=== PATIENT | female | born 1960 | race Caucasian/White ===

== ENCOUNTER → 2018-09-01 09:33 | Outpatient (CLI) | payer MEDICAID, SELFPAY ==
--- NOTE | 2018-09-01 | ASPOS_PTH ---
PATIENT: TRENA DENISE LOC: CT U#:[id number] AGE/SX: 65/F ROOM: RE09/01/[address]: Dr. Rafal Leija MD : 1960 BED: DIS: SPEC #: [id number] RECD: 09/01/18 12:25 STATUS: RUT ARETHA #: [id number] YANETH: 09/01/18 00:[address]: Rafal Leija DEPT: CYTOLOGY RECD BY: Yohan Kenny ENTERED: 09/01/18 12:25 SP TYPE: ASP HERE OTHR DR: No Primary Care Phys Tissues: Neck, NOS Procedures: Surgery Specimen Level IV Cytology Other Fine Needle Asp on Site HEADER OPERATION: FNA right neck mass PRE-OP DIAGNOSIS: Right neck mass TISSUE SUBMITTED: FNA right neck mass DIAGNOSIS CYTOLOGY Right neck mass, FNA (smears and cell block): Necrotic cellular material, suspicious for malignancy. See comment. SJ:kay 09/04/18 COMMENT The specimen is evaluated at the time of FNA by Dr. Trotter. Immediate Evaluation = Atypical necrotic cellular debris suspicious for malignancy. The entire specimen consists of necrotic material. Further evaluation is not possible due to necrosis. Incisional or excisional biopsy of the lesion is necessary for definite classification of the lesion. Correlation with clinical findings and appropriate follow up are necessary. Case has been reviewed in consultation with Dr. Trotter who concurs with the above diagnosis. IDC:AM CYTOLOGY STUDY Slides are reviewed. CYTOLOGY GROSS Received is 0.2 ml of webb material labeled with the patient's name, and designated right neck mass. Five imprints and two paps are made from the submitted fluid and the rest is added to CytoLyt for cell block preparation. Submitted for cytology study. / AM:kay 09/01/18 TC: Cannot code CPT: 71904, 88736, 88535, 55131
--- NOTE | 2018-09-01 10:38 | CT_ITS ---
We are attempting to reach Rafal Leija MD to discuss findings. An addendum with communication details will be sent when the communication is complete. STUDY: CT SOFT TISSUE NECK WITH CONTRAST REASON FOR EXAM: Female, 58 years old. ]Right neck mass RADIATION DOSAGE (If Supplied By Facility): CTDIvol = ( 23.25 ) mGy, DLP = ( 609.48 ) mGycm TECHNIQUE: The patient was scanned in a multi-detector CT scanner. High resolution transaxial imaging was performed following intravenous administration of Isovue 300 100cc IV. Sagittal and coronal images were reconstructed. Individualized dose optimization techniques were used for this CT. COMPARISON: None. FINDINGS: SUPRAHYOID HEAD AND NECK CLIENT SERVICE PROFESSIONAL SPACE (INCLUDING SUPRAZYGOMATIC PORTION): Normal with no evidence of an accessory parotid lobe. No calcification in parotid duct. PARAPHARYNGEAL SPACE: Normal and symmetric. No evidence of asymmetric pterygoid plexus. RETROPHARYNGEAL SPACE: A large 1.8 cm right necrotic node of Rouviere is seen CAROTID SPACE: Displaced medially by an enlarged necrotic lymph nodes matted together at levels 2A and 2B on the right side of the neck PERIVERTEBRAL SPACE: The prevertebral and paraspinal components are normal. PAROTID SPACE: Negative PHARYNGEAL MUCOSAL SPACE: The nasopharyngeal and oropharyngeal spaces including the tongue base are normal with no tonsillitis, adenoidal hypertrophy or any neoplastic processes. No evidence to suggest the presence of squamous cell carcinoma within the pharyngeal mucosal spaces i in the nasopharynx, oropharynx or hypopharynx ORAL CAVITY : The mucosal surfaces including the anterior two thirds of the tongue and the submandibular and sublingual spaces are normal INFRAHYOID HEAD AND NECK: VISCERAL SPACE: A 1.6 cm area of low attenuation is identified within the left lobe of the thyroid gland with multiple areas of calcifications within it. Papillary carcinoma is suspected because of the cystic lymphadenopathy on the right side of the neck THE CAROTID, RETROPHARYNGEAL, PERIVERTEBRAL and POSTERIOR CERVICAL SPACES (Containing The Spinal Accessory Lymph Nodes): Normal . ORBITS AND PARANASAL SINUSES: Negative CERVICAL LYMPH NODES: A 5.6 x 2.2 cm mass is noted at the levels 2A, 2-B and 3 the right side.. They are consistent with necrotic lymph nodes matted together. The mass has displaced the right carotid space medially and the sternocleidomastoid muscle laterally. A 1.8 cm necrotic lymph node is also seen in the right retropharyngeal group (node of Rouviere). A 1.9 x 1.3 cm nonnecrotic lymph node is at level 2A on the left side and a 1.3 cm nonnecrotic lymph node is at level IIb also on the left side . CT/Soft Tissue Neck WITH Contrast IMPRESSION: Large necrotic nodes matted together at level 2A, 2-B and 3 on the right side and level 2A and 2B on the left side. A necrotic right-sided node review is also noted. There is no demonstrable neoplastic process within the pharyngeal mucosal spaces of the nasopharynx, oropharynx or hypopharynx. There is however a 1.6 cm area of low attenuation in the left lobe of the thyroid gland with specks of calcifications within it. Papillary carcinoma is suspected because of the necrotic nature of the abnormal lymph nodes. Ultrasound-guided biopsy of the thyroid lesion is suggested Electronically Signed: Jason Estevez MD at 8:02 EDT Tel , Service support ,
[2018-09-01 11:01] LABS: CREATININE FINGERSTICK 0.8 mg/dL (0.55-1.02); EGFR FINGERSTICK > 60.0000 mL/min (>60)
== END ==
PROVIDERS: Referring Provider Otolaryngology; Visit Provider Otolaryngology
DX: R22.1 Localized swelling, mass and lump, neck (principal)
CPT/HCPCS: 10021; 70491; 88161; 88305; Q9967

== ENCOUNTER 2018-09-08 00:24 | Emergency (ER) | payer MEDICAID, SELFPAY ==
[2018-09-08 00:25] VITALS: BP 149/88; PULSE 94; RESP 16; TEMP 36.8; O2SAT 99; BMI 16.9
--- NOTE | 2018-09-08 01:52 | ED.VISSUMM ---
- ER Visit Summary Date of Service: 09/08/18 Chief Complaint: Right ear pain History of Present Illness: The patient is a 58 F who presents with right ear pain. This is been present for last few days. She describes it as a severe pressure. She is undergoing evaluation by otolaryngology for a right neck mass. She had a CT which showed necrotic lymph nodes. She also had a questionable thyroid malignancy. She also recently had a fine-needle aspiration. Biopsy was inconclusive as it essentially just showed necrotic tissue. She then saw otolaryngology in the office and was diagnosed with otitis media and put on Augmentin. She developed a rash. Therefore she stopped the antibiotic. She came in tonight due to severe pain. No fevers. No vomiting. She also states that there was a red line from her biopsy site up towards her right ear although that has since resolved. Physical Examination: Afebrile vitals normal Patient does appear to be in pain The right tympanic membrane is erythematous with a cloudy effusion but I am able to visualize landmarks Site of fine-needle aspiration is clean and dry no drainage no erythema no lymphangitic streaking Heart regular rate and rhythm Lungs clear Abdomen soft Alert Test Results: Not indicated Emergency Department Course and Treatment: The red streak that family had noted before when they removed the Band-Aid is now gone. This could even potentially be a reaction to the adhesive from the Band-Aid. There is no evidence of infection there at this time. She does have evidence of otitis media. I spoke to Dr. Mondragon was able to provide more information. She likely has a malignancy in the neck with occlusion of the eustachian tube. He notes that this is likely to lead to otitis media. We discussed changing the patient to Levaquin which she is in agreement with. Patient was also given oxycodone here for pain as well as a prescription for Percocet as she has tolerated this in the past. She will follow-up with otolaryngology in the office and was discharged home. Treatment Plan: [] Disposition: Discharge Impression: Acute right otitis media Neck malignancy This note was generated with VividCortexation software. It may contain incorrect words, spelling, and punctuation that were not noted in review of the chart prior to signing ED Disposition - Plan for ED Patient: Referrals: Care Physician,No Primary [Primary Care Provider] -
--- NOTE | 2018-09-08 01:54 | ED.DEP ---
ED Disposition - Plan for ED Patient: Instructions: ED Otitis Media Acute Adult Prescriptions: Oxycodone HCl/Acetaminophen [Percocet 5/325] 1 tab PO Q6H PRN PRN 3 Days #12 tab PRN Reason: Pain Levofloxacin [Levaquin] 750 mg PO DAILY #6 tab Referrals: Care Physician,No Primary [Primary Care Provider] - Demarco Leija MD [STAFF PHYSICIAN] -
[2018-09-08] MEDS: oxyCODONE 5 MG Tablet PO (01:56)
[2018-09-08] MEDS: levoFLOXacin 750 MG Tablet PO (01:56)
[2018-09-08 01:57] VITALS: RESP 18; O2SAT 97
== END 2018-09-08 01:59 | disposition home or self-care (01) ==
PROVIDERS: Emergency Provider Emergency Medicine
DX: H66.91 Otitis media, unspecified, right ear (principal); C76.0 Malignant neoplasm of head, face and neck; E11.9 Type 2 diabetes mellitus without complications; Z79.4 Long term (current) use of insulin; Z72.0 Tobacco use
CPT/HCPCS: 99283

== ENCOUNTER → 2018-10-02 09:35 | Outpatient (CLI) | payer MEDICAID, SELFPAY ==
[2018-09-08 00:25] VITALS: BMI 16.9
--- NOTE | 2018-10-02 09:30 | PET_ITS ---
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 COMPARISON EXAMINATION: CT of the neck report dated 09/01/18. INDEX LESION SIZE SUV INTERPRETATION Nasopharynx-heterogeneous 37.4 mm (frame 301) 23.5 Fulfills quantitative criteria for viable neoplasm Bilateral-lateral neck 33.2 mm x 38.0 mm largest (frame 287) 21.5 (max) Fulfills quantitative criteria for viable neoplasm TECHNIQUE: Following the intravenous administration of 13.83 mCi of F-18 deoxyglucose via the right hand, multiplanar image acquisitions of the neck, chest, abdomen and pelvis to level of mid thigh, obtained at one hour post radiopharmaceutical administration contemporaneously interpreted with the current CT of the neck, chest, abdomen and pelvis to level of mid thigh, dated 10/02/[address] of the neck report dated 09/01/18 reveal: SERUM GLUCOSE LEVEL: 110 mg/dl. HEIGHT: 67 inches. WEIGHT: 170 lbs. FINDINGS: 1. Increased glucose metabolism is defined in the right and midline nasopharynx, heterogeneous in presentation generating a calculated maximum standard uptake value of 23.5. The maximal axial diameter of the metabolic abnormality on review of CT of the neck dated 02/01/19 is 37.4 mm (transverse). 2. Multifocal increased FDG concentration is demonstrated in the bilateral-lateral neck in the distributions of level II A, III. The calculated maximum standard uptake value is 21.5. The largest corresponding metabolic, morphologic abnormality on review of CT of the neck dated 10/02/18 is 33.2 mm (transverse) x 38.0 mm (AP). 3. Normal physiologic distribution of the radiopharmaceutical is apparent in the hepatic (0.8) and splenic parenchyma, both renal units, bladder and visualized intestinal tract. There is uniform distribution of the radiopharmaceutical concentration defined in the visualized cerebellar hemispheres and cerebral cortical structures.? Diffuse intestinal tract activity is noted throughout all four quadrants of the abdominal-pelvic retroperitoneum, mesentery consistent with normal physiologic distribution of the radiopharmaceutical. Prominent left ventricular myocardial and skeletal muscle distribution of the radiopharmaceutical is noted. Pertinent CT findings are as follows. CHEST: Atherosclerotic calcification is defined in the thoracic aorta without evidence of dilatation, aneurysm formation. Subcentimeter bilateral axillary and mediastinal soft tissue densities are non-glucose avid. There are no parenchymal densities-nodules defined in the right-left hemithorax demonstrating discernible increased glucose metabolism. ABDOMEN AND PELVIS: There is fatty metamorphosis involving the hepatic parenchyma. Cholelithiasis is defined. Atherosclerotic calcification is defined in the abdominal aorta without evidence of dilatation, aneurysm formation. Bilateral inguinal soft tissue densities are ametabolic. Colonic diverticulosis is defined. Calcified granuloma formation is noted within the splenic parenchyma. Cortical cyst formation is observed in the left kidney with a maximal axial diameter of 30.7 mm (transverse). SKELETAL: Degenerative changes defined in the cervical, thoracic and lumbar spine demonstrate no evidence for glucose hypermetabolism. PET/PET/CT Tumor Base -Thigh Init IMPRESSION: 1. ABNORMAL EXAMINATION INDICATIVE OF MALIGNANT-VIABLE NEOPLASM. 2. Increased FDG concentration noted in the nasopharynx fulfills quantitative criteria for viable neoplasm. 3. Bilateral-lateral neck hypermetabolic abnormalities fulfill quantitative criteria for malignant transformation. 4. Prominent left ventricular myocardial, as well as skeletal muscle distribution of the radiopharmaceutical is commensurate with the pattern associated with failure to fast. (Kezia and Ting, Journal of Nuclear Medicine Technology 31:3, 2003). Electronic Signature Genaro De La Rosa D.O. Electronically Signed: Genaro De La Rosa DO at 20:48 EDT Tel , Service support ,
== END ==
PROVIDERS: Referring Provider Otolaryngology; Visit Provider Otolaryngology
DX: C77.0 Secondary and unspecified malignant neoplasm of lymph nodes of head, face and neck (principal)
CPT/HCPCS: 78815; A9552

== ENCOUNTER → 2018-10-30 | Outpatient (CLI) | payer MEDICAID, SELFPAY ==
[2018-10-26 09:19] VITALS: BMI 28.3
--- NOTE | 2018-10-30 12:44 | PFTCOMP ---
COMPLETE PULMONARY FUNCTION TEST INTERPRETATION Brief HPI: Patient is a 58 year old female, currently under the care of Dr. Loco, who presents to [facility] for complete pulmonary function tests secondary to diagnosis of COPD. Respiratory therapist reports good effort and reproducible results. Interpretation: Forced expiration spirometry shows no moderately-severe large airways obstructive ventilatory defect with an FEV1 of 59% predicted. There is a significant bronchodilator response in FVC by strict ATS criteria. Spirograms are of good quality and plateau slowly, indicating slowly emptying areas of the lungs. The respiratory flow volume loop shows decreased expiratory flow rates at all lung volumes consistent with airway obstruction. Lung volumes by body plethysmography show a normal total lung capacity at 6.03 L, 110% predicted. FRC and RV are elevated out of proportion. Lung volume measurements are consistent with hyperinflation and air-trapping. Diffusion capacity by carbon monoxide is normal at 107% predicted. The airway resistance is elevated. No previous pulmonary function tests were available for review. Impression: Partially reversible moderately severe large airways obstructive ventilatory defect with preserved diffusion capacity in a pattern consistent with chronic bronchitis
== END | disposition home or self-care (01) ==
LOC: PSN 10:02
PROVIDERS: Referring Provider Internal Medicine Hematology & Oncology; Visit Provider Internal Medicine Hematology & Oncology
DX: C83.30 Diffuse large B-cell lymphoma, unspecified site (principal); R22.1 Localized swelling, mass and lump, neck
CPT/HCPCS: 94060; 94726; 94729

== ENCOUNTER 2018-11-16 14:46 | Emergency (ER) | payer MEDICAID, SELFPAY ==
[2018-11-16 13:53] VITALS: BMI 28.7
[2018-11-16 14:48] VITALS: BP 95/52; PULSE 105; RESP 18; TEMP 36.8; O2SAT 96; BMI 27.7
--- NOTE | 2018-11-16 15:07 | ED.VIS.GEN ---
History of Present Illness Chief Complaint: Hyperglycemia Informant: Patient Onset: Today Narrative: Sent from cancer clinic for glucose of 500. Nausea this morning, currently resolved. History of diabetes, states out of her short acting insulin 2 days ago which she takes 12 units before every meal. She takes long-acting 60 units at night for which she still has not took it last night. In addition states she has been on high-dose steroid treatment for a week up to yesterday of 100 mg of prednisone. She ate 1 hour ago before going to the clinic. Denies sweats. Denies dyspnea. Denies vomiting. No fevers. States can get her prescription filled if given one. Past Medical History - Allergies and Home Meds Allergies/Adverse Reactions: Allergies acetaminophen [From Vicodin] Allergy (Severe, Verified 11/16/18 14:49) Swelling rash, hydrocodone bitartrate [From Vicodin] Allergy (Severe, Verified 11/16/18 14:49) Swelling rash Primary Care Physician: Kim Dee NP-C [Primary Care Provider] - Smoking Status: Current every day smoker Review of Systems General: Denies: Chills, Fever, Sweats Eyes: Denies: Visual changes - bilaterally, Diplopia ENT: Denies: Rhinorrhea, Sore throat Cardiovascular: Denies: Chest pain, Palpitations Respiratory: Denies: Dyspnea, Cough, Dyspnea on exertion Gastrointestinal: Denies: Abdominal pain, Nausea, Vomiting, Diarrhea, Melena, Hematochezia Genitourinary: Denies: Dysuria, Hematuria, Frequency Musculoskeletal: Denies: Back pain, Extremity Pain Skin: Denies: Rash, Wounds Neurological: Denies: Headache, Weakness, Numbness Physical Exam Vital Signs/Narrative: Vital Signs Temp Pulse Resp BP Pulse Ox 11/16/18 14:48 98.2 F 105 H 18 95/52 L 96 Inital Vital Signs reviewed: Yes General: Well nourished, Well developed, No Acute Distress Head: Normocephalic, Atraumatic Eyes: Perrl, EOMI ENT: Moist mucous membranes, No rhinorrhea Neck: Supple, Nontender Cardiovascular: Regular rate, Regular rhythm, No murmurs Respiratory: No distress, CTA bilaterally, Chest nontender Abdomen: Soft, Nontender, Nondistended, Normal bowel sounds Back: Nontender, Normal Inspection Extremities: Nontender, No edema Skin: Normal color, No rash Neurological: Alert, Oriented x3, Cranial nerves II-XII grossly intact, Normal Strength, Normal Sensation Psychological: Normal affect, Normal Mood Diagnostic/Tx/Re-eval Abnormal Lab Results 11/16/18 15:20 Sodium 133 L Potassium 4.5 Chloride 95 L Carbon Dioxide 32.0 Anion Gap 6 BUN 14 Creatinine 0.80 Estim Creat Clear Calc 72.72 Est GFR (MDRD) Af Amer 94 Est GFR (MDRD) Non-Af 78 BUN/Creatinine Ratio 17.5 Glucose 391 H Calcium 9.1 - Medical Decision Making Patient vitals stable, nontoxic. Elevated glucose multifactorial from being out of her insulin, eating before her testing along with being on steroids. She given IV fluids check labs sugars 391 in the lab her anion gap was 6. Pending CBC results. She has no fevers with her recent chemotherapy. She was given 15 units of insulin, she does have insulin strips at home. She is written for NovoLog flex pen for which she knows how to use and understands a sliding scale. She did not want to wait for the CBC results. She is given her prescription, she will follow-up as an outpatient. All questions were answered. Signs and symptoms discussed return. ED Disposition - Plan for ED Patient: Disposition: Home or Assisted Living Diagnosis: Hyperglycemia Instructions: ED Hyperglycemia Diabetic Prescriptions: Insulin Aspart [Novolog Flexpen ([facility])] 12 units SC TIDCM #1 flexpen Referrals: Kim Dee, BERT-C [Primary Care Provider] - 3-5 Days
[2018-11-16] MEDS: 0.9% Normal Saline 1,000 ML 1000 ML IV (15:20)
[2018-11-16 15:57] LABS: Anion Gap 6 (5-15); BUN 14 mg/dL (7-18); BUN/Creat Ratio 17.5 RATIO (10-20); Calcium,Total 9.1 mg/dL (8.5-10.1); Chloride 95 mmol/L (98-107); EST Glomerular Filtration Rate 78 mL/min (>60); Est Glom Filt Rate - Afr Amer 94 mL/min (>60); Estimated Creatinine Clearance 72.72 ml/min; Glucose 391 mg/dL (74-106); Potassium 4.5 mmol/L (3.5-5.1); Sodium Level 133 mmol/L (136-145)
[2018-11-16] MEDS: Insulin Lispro 100 UNIT/ML INSULN.PEN 15 UNIT SC (16:22)
[2018-11-16 16:26] VITALS: BP 106/72; PULSE 88; RESP 20; O2SAT 94
[2018-11-16 16:32] LABS: Hematocrit 37.8 % (37-47); Hemoglobin 13.6 g/dl (12.0-15.0); Mean Corpuscular Hgb 29.6 pg (27.0-32.0); Mean Corpuscular Volume 82.2 fL (81-99); Mean Platelet Vol. 11.5 fl (6.2-12.0); Platelet Count 102 K/mm3 (150-450); RBC Distribution Width CV 12.4 % (11.6-14.6); RBC Distribution Width SD 36.9 fl (35.1-43.9); White Blood Count 7.3 K/mm3 (4.4-11.0)
[2018-11-16 16:35] LABS: Bedside Glucose 310 mg/dL (70-110)
[2018-11-16 16:37] LABS: Differential Indicated MANUAL DIFF; POSITIVE COUNT YES; POSITIVE DIFFERENTIAL NO; POSITIVE MORPHOLOGY YES
[2018-11-16 16:54] LABS: Eosinophil 1 % (0-5); Lymphocyte 16 % (19-41); Metamyelocyte 1 % (0-1); Neutrophil-Band 1 % (0-5); Neutrophil-Segmented 81 % (47-70); Total Cells Counted 100 (MANUAL DIFF)
[2018-11-16 16:57] LABS: Absolute Lymphocyte Count 1.17 X10^3/ul (0.83-4.51)
[2018-11-16 16:58] LABS: Anisocytosis RARE; Platelet Estimate MOD DEC (ADEQ)
[2018-11-20 09:10] LABS: Pathologist Review Reviewed
== END 2018-11-16 16:27 | disposition home or self-care (01) ==
PROVIDERS: Emergency Provider Emergency Medicine; Family Provider Nurse Practitioner Family; PCP Nurse Practitioner Family
DX: E11.65 Type 2 diabetes mellitus with hyperglycemia (principal); Z79.4 Long term (current) use of insulin; F17.200 Nicotine dependence, unspecified, uncomplicated
CPT/HCPCS: 36415; 80048; 80053; 82962; 83615; 84550; 85025; 96360; 96372; 99284; J7030; A4216

== ENCOUNTER → 2018-11-22 | Outpatient (CLI) | payer MEDICAID, SELFPAY ==
[2018-11-22 14:55] VITALS: BMI 27.7
== END | disposition home or self-care (01) ==
LOC: LABSPEC 16:46
PROVIDERS: Referring Provider Surgery; Visit Provider Surgery
DX: M27.2 Inflammatory conditions of jaws (principal)
CPT/HCPCS: 87070; 87077; 87186; 87205

== ENCOUNTER 2018-12-08 05:46 | Day surgery (SDC) | payer MEDICAID, SELFPAY ==
[2018-11-22 14:55] VITALS: BMI 27.7
--- NOTE | 2018-11-27 08:27 | HP_ITS ---
Intake Vital Signs 11/22/18 Body Mass Index (BMI) 27.7 11/22/18 Height 5 ft 7 in 11/22/18 Weight: 173 lb 4 oz 11/22/18 Body Mass Index (BMI) 27.1 11/22/18 Blood Pressure 105/65 11/22/18 Blood Pressure Location Rt brachial 11/22/18 Blood Pressure Position Sitting 11/22/18 Respiratory Rate 20 H 11/22/18 Pulse Rate 106 H 11/22/18 Pulse Ox 99 Intake Visit Reasons: Port Placement Consult Chemo starts 12/04 Chief Complaint: port placement--tx 12/04 Java Programmer Required: No Is patient in pain?: No Allergies acetaminophen [From Vicodin] Allergy (Severe, Verified 11/22/18 14:54) Swelling hydrocodone bitartrate [From Vicodin] Allergy (Severe, Verified 11/22/18 14:54) Swelling Medications Albuterol Inhaler [Ventolin Hfa] 1 - 2 puff INHALATION Q4H PRN PRN #1 inhaler 03/22/13 [Rx Confirmed 11/22/18] Insulin Aspart [Novolog Flexpen (BKC)] 12 units SUBCUT TIDCM #1 flexpen 02/06/15 [Rx Confirmed 11/22/18] Insulin Glargine,Hum.rec.anlog [Lantus] 60 unit SQ QHS #1 bottle 02/06/15 [Rx Confirmed 11/22/18] Lisinopril 5 mg PO DAILY 09/08/18 [History Confirmed 11/22/18] Insulin Aspart [Novolog Flexpen (BKC)] 12 units SUBCUT TIDCM #1 flexpen 11/16/18 [Rx Confirmed 11/22/18] amoxicillin 875 mg-potassium clavulanate 125 mg tablet 1 tab PO BID #14 tab 11/22/18 [Rx Confirmed 11/22/18] doxycycline hyclate 100 mg capsule 100 mg PO BID #14 cap 11/24/18 [Rx] Is last menstrual period known: No Post menopausal: Yes Patient : No PFSH Medical History History of personality disorder (Chronic) Tobacco use disorder (Chronic) DLBCL (diffuse large B cell lymphoma) (Acute) Hyperactive (Acute) Hyperglycemia (Acute) Diabetes (Acute) Neck mass (Acute) COPD (chronic obstructive pulmonary disease) (Chronic) HTN (hypertension) (Chronic) Surgical History History of section (Acute) History of colonoscopy (Acute) History of esophagogastroduodenoscopy (EGD) (Acute) History of lymph node biopsy (Acute) Status post myringotomy with insertion of tube (Acute) Family History Mother Brain cancer Father Throat cancer Social History Smoking Status: Current every day smoker HPI HPI HPI: TRENA DENISE, is a 58 F who presents to the office today for HPI HPI Surgical H&P: Yes HPI: TRENA DENISE, is a 58 F who presents to the office today for port placement due to diffuse large B-cell lymphoma. Patient did initially get her chemotherapy started at [facility] after she presented with the painless mass on the right side of her neck. Patient states that the mass on the right and left side of her neck have improved since getting chemotherapy. However she did note that she had a right mandibular abscess that just came up the last couple days. Patient states it has been draining purulent material when she applies a warm compress. ROS General General: Yes weight change and fatigue; no colon cancer, breast cancer or weakness HEENT HEENT: Yes swollen glands; no difficulty swallowing, eye injury, eye surgery or hoarseness Endo Endocrine: Yes diabetes mellitus; no thyroid disease, thyroid cancer, Hair loss, heat intolerance or cold intolerance Cardio Cardiovascular: No murmur, pacemaker, heart disease, atrial fibrillation, high blood pressure, heart attack, heart stent, palpitations, shortness of breat with exertion or chest pain Resp Respiratory: No shortness of breath, No sleep apnea, No cough, Yes COPD, No asthma, No emphysema, No wheezing Gastro Gastrointestinal: No abdominal pain, No nausea or vomiting, No diarrhea, No constipation, No blood in stool, No acid reflux, No hemorrhoids, No ulcers, No gallbladder problem, No black,tarry stools Neuro Neurologic: No weakness Exam Const General: cooperative, comfortable, no acute distress HENMT Other: 2 x 3 cm induration abscess overlying the right mandible, but a 1 cm scab at the center normal current drainage, mildly tender to palpation. Neck Other: Neck supple, previous neck masses not obvious on exam. Chest Other: Upper chest normal to inspection and palpation Cardio Heart Sounds: no murmurs GI Inspection: non-distended Palpation: soft, no guarding, nontender Office Procedures Incision and Drainage Procedure performed by: kareem Informed consent given: Yes Consent signed: Yes Time out checklist: patient, procedure, site marked/identified, positioning of patient, supplies available, allergies confirmed, team agrees on procedure Time out staff in room: Yes Time out verified: Yes Location: Overlying the right mandible Anesthesia: local Incision with: #11 blade Drainage quality: purulent (Minimal) Probed cavity: Yes Culture taken: Yes Lesion: erythema (Only at the area of induration 2 to 3 cm), drainage (Minimal), induration Lesion size (cm): 2 (2x3 cm) Hemostasis: pressure Cavity management: packing Type: iodoform Dressing: gauze Patient tolerated procedure: well Complications: No Assessment & Plan Problems 1. Encounter for adjustment or management of vascular access device Z45.2 2. DLBCL (diffuse large B cell lymphoma) C83.30 3. Mandibular abscess M27.2 right SQ overlying mandibular Plan Patient tolerated the I&D of the right mandibular abscess well. Minimal purulent fluid was obtained. Culture was taken. Patient was placed on Augmentin 875 mg p.o. twice daily x7 days. While the patient let us know on Tuesday how that area is doing as if it not healing the port placement may be delayed as patient would not undergo chemotherapy with an active infection. I have discussed above with the patient- Port-a-Cath placement. Left possible right IJ Patient has been counseled as to the risks/benefits of the procedure. I have explained the risks of the surgery, including but not limited to: infection, bleeding, injury to any blood vessels/nerves, injury to lungs (such as pneumothorax or hemothorax and need for chest tube), not having any access, nonfunctioning of port due to thrombosis, infection of port, etc. the patient understands and agrees to proceed. I have answered all the patient's questions to the patient?s satisfaction and the patient has no further questions. Addendum patient's abscess did grow MRSA patient was changed to doxycycline on 11/23/2018. Julia Mendez M.D. Pager: [phone] [facility] [address] [place] [address], [facility], [address] [place] [address] Office: [phone] Orders Orders: Culture, Wound 11/22/18 M27.2 Medications New: amoxicillin-pot clavulanate 875-125 mg (Augmentin) 1 tab PO BID 14 tabs 0RF Plan Detail Follow Up Patient will also have the abscess doing on Tuesday may need to push back port peer Coding Level of Care Code Attention Horse Racing Analyst Diagnoses Encounter for adjustment or management of vascular access device Z45.2 DLBCL (diffuse large B cell lymphoma) C83.30 Mandibular abscess M27.2 Comment New patient level 3 & [id number] 11/27/18 0827 <Electronically signed by Julia Roca am, MD> Date _ Julia Mendez MD 7:10 12/08/18---Patient seen and examined changes noted: right mandibular abscess + MRSA pt was treated with 7 days of doxycycline, no signs of infection currently. pt had no further questions about procedure.
[2018-12-08 06:10] VITALS: BP 119/96; PULSE 96; RESP 20; TEMP 36.8; O2SAT 99; BMI 27.8
[2018-12-08 06:30] LABS: Bedside Glucose 310 mg/dL (70-110)
[2018-12-08] MEDS: Cefazolin 2 GM in 0.9% Normal Saline 100 ML IV (07:17)
[2018-12-08] MEDS: Bupivacaine Mpf 0.5% 30 ML VIAL (07:36)
--- NOTE | 2018-12-08 08:07 | OP.PCM_ITS ---
Report of Operation Date of Procedure: 12/08/18 Pre-Operative Diagnosis: z45.2, diffuse large b cell lymphoma Post-Operative Diagnosis: same Surgery/Procedure Performed:: placement of right IJ port. use of U\S. use of fluoroscopy Type of Anesthesia:: MAC/Supplemental Anesthesiologist: Noel Pryor Special Medications: ancef 2 grams IV x 1 Estimated Blood Loss (mL): < 10 cc Fluids Replaced: 200 cc Description of Procedure: After informed consent was given, the patient was brought to the operating room and placed in the supine position. Appropriate time out protocol was followed. He was then given IV conscious sedation for anesthesia. The patient's bilateral upper chest and neck were then prepped with a surgical skin preparation and sterile surgical drapes were placed. After proper landmarks were ascertained, the skin at the upper right chest area was then infiltrated with 1:1 mixture of 1% lidocaine with epinephrine and 0.5% maricaine. A needle trocar was then inserted into the right internal jugular vein with ultrasound guidance-multiple vessels were viewed with u/s and the right IJ was chosen-- and there was good aspiration of venous blood. A wire was then threaded into the needle trocar and this was visualized under fluoroscopy to ensure that the wire was in the superior vena cava. Once this was done, then the needle trocar was removed. A small skin radha was made with an 11 blade knife at the wire entrance site. The dilator with the introducer sheath attached was then placed over the wire into the right internal jugular vein via the Seldinger technique and this was visualized under fluoroscopy. The dilator and sheath were in proper position as visualized by fluoroscopy. A subcutaneous pocket was then created caudad to the catheter insertion site. A transverse skin incision was made after the skin and subcutaneous tissues were infiltrated with local anesthetic. Blunt dissection was then used to create a space large enough for placement of the subcutaneous port. The catheter was then tunneled into the subcutaneous pocket. The wire and dilator were then removed. The catheter was then threaded into the introducer sheath and was positioned with its tip at the junction of the superior vena cava and the right atrium as visualized under fluoroscopy. The ex cess catheter was transected. The catheter was then attached to the subcutaneous port using manufacturers guidelines. The catheter was flushed with a heparin saline mixture prior to placement. Hemostasis was carefully controlled with electrocautery. The port was sutured to the subcutaneous fascia using 3-0 vicryl suture at two sites. The port was then placed in the subcutaneous pocket and the sutures were ligated. The incision were reapproximated with interrupted subdermal 3-0 vicryl sutures. The skin was reapproximated with 3-0 nylon suture in a interrupted fashion. Steristrips were used for reinforcement of the skin closure at IJ insertion site and a sterile opsite dressings were applied. The patient tolerated the procedure well. Implants Used: Bard PowerPort isp M.R.I. 6Fr Lot [id number] [id number] Grafts/Implants Used: [employer] PowerPort isp M.R.I. 6Fr Lot [id number] [id number] - Complications none
--- NOTE | 2018-12-08 08:10 | PCM.DC.POR ---
Discharge Diet: Light diet - advance as tolerated Discharge Activity: May not drive while taking narcotic pain medications. May shower in (days): 1 - keep port site clean and dry x 5 days, ok to lower shower and sponge bath top or cover with a ziplock bag and tape edges Lifting Restrictions: no lifting > 15 on right x 1 week Call your doctor if your incision/area has: Continuous Slow Oozing, Sudden Increased Bleeding, Increased Pain/ Swelling, Increased Redness, Foul Smelling Discharge, Swelling at the incision site Call your doctor if you observe: Fever of 101 or Higher Remove Dressing in (days):: 2 - ok to remove the neck dressing tomorrow, port site dressing can stay on for 2-3 days then change and replace dressing Allergies/Adverse Reactions: Allergies acetaminophen [From Vicodin] Allergy (Severe, Verified 12/06/18 13:00) Swelling rash, hydrocodone bitartrate [From Vicodin] Allergy (Severe, Verified 12/06/18 13:00) Swelling rash Medications to take at Discharge Albuterol Inhaler [Ventolin Hfa] 1 - 2 puff INHALATION Q4H PRN PRN #1 inhaler 03/22/13 Insulin Aspart [Novolog Flexpen (BKC)] 12 units SUBCUT TIDCM #1 flexpen 02/06/15 Insulin Glargine,Hum.rec.anlog [Lantus] 60 unit SQ QHS #1 bottle 02/06/15 Lisinopril 5 mg PO DAILY 09/08/18 Oxycodone HCl/Acetaminophen [Percocet 5/325] 1 - 2 tab PO Q6H PRN PRN 2 Days #5 tab 12/08/18 The following prescriptions were given: Oxycodone HCl/Acetaminophen [Percocet 5/325] 1 - 2 tab PO Q6H PRN PRN 2 Days #5 tab PRN Reason: Pain Transmission Status: Received by [facility] Primary Care Physician: Care Physician,No Primary [Primary Care Provider] - Test Results: Test results from this visit will be discussed in further detail at your follow-up appointment, if applicable. Please Follow Up With: Julia Mendez MD - after 5pm/weekends call [phone] When: call office for f/u appt in 10 days for suture removal. Proposed Discharge Date: 12/08/18
[2018-12-08 08:12] VITALS: BP 105/49; BP 119/96; PULSE 92; RESP 16; TEMP 36.3; O2SAT 95
[2018-12-08 08:17] VITALS: BP 119/96; BP 87/65; PULSE 89; RESP 16; O2SAT 96
--- NOTE | 2018-12-08 08:20 | RAD_ITS ---
STUDY: X-RAY CHEST REASON FOR EXAM: Female, 58 years old. TECHNIQUE: 1 view COMPARISON: February 06, 2015. FINDINGS: The lungs are clear and expanded. There is no demonstrated pleural abnormality. Normal size heart. Normal mediastinum and jocy. Normal visualized pulmonary arteries. Normal visualized aortic arch and descending thoracic aorta. Normal visualized thoracic spine. Normal visualized ribs, clavicles, and shoulders. There is no demonstrated abnormality of the visualized soft tissue structures of the upper abdomen. There is central line with the tip in the superior vena cava. RAD/CXR for Line Placement IMPRESSION: Normal x-ray examination of the chest. Electronically Signed: Hellen Estrada, at 9:37 EDT Tel , Service support ,
[2018-12-08 08:22] VITALS: BP 119/96; BP 98/82; PULSE 87; RESP 16; O2SAT 97
[2018-12-08 08:27] VITALS: BP 101/59; BP 119/96; PULSE 88; RESP 16; TEMP 36.2; O2SAT 97
[2018-12-08 09:45] VITALS: BP 119/96
== END 2018-12-08 09:47 | disposition home or self-care (01) ==
LOC: SDC 05:47 → AC 05:48
PROVIDERS: Referring Provider Surgery; Visit Provider Surgery
PROC: (CPT 36561; principal; 2018-12-08 07:15)
DX: Z45.2 Encounter for adjustment and management of vascular access device (principal); C83.30 Diffuse large B-cell lymphoma, unspecified site; I10 Essential (primary) hypertension; J44.9 Chronic obstructive pulmonary disease, unspecified; E11.9 Type 2 diabetes mellitus without complications; Z79.899 Other long term (current) drug therapy; Z79.4 Long term (current) use of insulin; F17.200 Nicotine dependence, unspecified, uncomplicated; M27.2 Inflammatory conditions of jaws; B95.62 Methicillin resistant Staphylococcus aureus infection as the cause of diseases classified elsewhere; Z85.850 Personal history of malignant neoplasm of thyroid
CPT/HCPCS: 36561; 71045; 77001; 82962; J7120; A4216

== ENCOUNTER 2018-12-22 13:55 | Emergency (ER) | payer MEDICAID, SELFPAY ==
[2018-12-19 16:01] VITALS: BMI 28.5
[2018-12-22 13:57] VITALS: BP 116/52; PULSE 100; RESP 16; TEMP 36.6; O2SAT 96; BMI 27.6
--- NOTE | 2018-12-22 14:11 | CT_ITS ---
STUDY: CT CHEST WITH CONTRAST REASON FOR EXAM: Female, 58 years old. RIGHT NECK SWELLING ABOVE PORT SITE RADIATION DOSAGE (If Supplied By Facility): CTDIvol = ( 20.79 ) mGy, DLP = ( 722.53 ) mGycm TECHNIQUE: Transaxial imaging was performed following intravenous administration of 100ML IV Isovue 300. Individualized dose optimization techniques were used for this CT. COMPARISON: None. FINDINGS: Used to the neck show no acute abnormality. 1.5 cm nodule in the left thyroid lobe. The lungs are normal. There is no demonstrated pleural abnormality. Normal heart and pericardium. Normal mediastinum. Normal hilar regions. Normal enhanced pulmonary arteries. Normal aorta arch and descending thoracic aorta. Normal osseous structures. There is no demonstrated abnormality of the visualized upper abdomen. CT/Chest WITH Contrast IMPRESSION: Normal enhanced CT Chest examination. Electronically Signed: Sukhwinder Forbes MD at 16:23 EDT , Service support ,
--- NOTE | 2018-12-22 14:11 | CT_ITS ---
STUDY: CT SOFT TISSUE NECK WITH CONTRAST REASON FOR EXAM: Female, 58 years old. Right neck swelling RADIATION DOSAGE (If Supplied By Facility): CTDIvol = ( 20.45 ) mGy, DLP = ( 587.34 ) mGycm TECHNIQUE: The patient was scanned in a multi-detector CT scanner. High resolution transaxial imaging was performed following intravenous administration of 100ML IV Isovue 300. Sagittal and coronal images were reconstructed. Individualized dose optimization techniques were used for this CT. COMPARISON: CT neck 09/01/2018. FINDINGS: Normal bilateral parotid glands. Normal bilateral patient care associate spaces. Normal bilateral parapharyngeal spaces. Normal bilateral carotid spaces. Normal bilateral sublingual and submandibular glands and spaces. Normal visualized nasopharynx. Normal retropharyngeal space. Normal perivertebral space. Normal visualized bilateral faucial tonsils. The visualized tongue, tongue base and oropharynx are normal. There are shoddy, subcentimeter right level 2 cervical lymph nodes which have markedly decreased in size since 09/01/2018 where there were bulky, centrally necrotic lymph node seen on prior exam. There is no demonstrated solid or cystic mass lesion. There is no abnormal contrast enhancement. Normal epiglottis, bilateral vallecula and hypopharynx. The pre-epiglottic and paraglottic adipose spaces are normal. Normal visualized bilateral piriform sinuses, aryepiglottic folds, vocal cords, and arytenoid-cricoid articulations. Normal subglottic trachea. There is a 1.3 x 1.4 cm left thyroid lobe hypodense nodule with coarse calcifications. Normal visualized pulmonary apices. Normal visualized paranasal sinuses. Normal visualized cervical spine. There is a right anterior chest wall [id number] with its tip coursing into the SVC. CT/Soft Tissue Neck WITH Contrast IMPRESSION: 1.3 x 1.4 cm left thyroid lobe nodule with coarse calcification. Shotty subcentimeter right level 2 cervical lymph nodes have markedly decreased in size. Electronically Signed: Zora Hawkins, at 16:38 EDT Tel , Service support ,
[2018-12-22] MEDS: 0.9% Normal Saline 1,000 ML 150 ML IV (14:23)
[2018-12-22] MEDS: Ondansetron 4 MG/2 ML Vial IV (14:23)
[2018-12-22] MEDS: Morphine 4 MG/ML Syringe IV (14:23)
[2018-12-22 14:36] LABS: Hematocrit 37.8 % (37-47); Hemoglobin 13.7 g/dl (12.0-15.0); Mean Corp Hgb Conc 36.2 g/gl (32-36); Mean Corpuscular Hgb 30.9 pg (27.0-32.0); Mean Corpuscular Volume 85.3 fL (81-99); Mean Platelet Vol. 10.7 fl (6.2-12.0); Platelet Count 132 K/mm3 (150-450); RBC Distribution Width CV 15.1 % (11.6-14.6); RBC Distribution Width SD 46.8 fl (35.1-43.9); Red Blood Count 4.43 M/mm3 (4.2-5.4)
--- NOTE | 2018-12-22 14:36 | ED.VIS.GEN ---
History of Present Illness Chief Complaint: Other, Pain/Inj Detail of Chief Complaint: Pain around port site. Informant: Patient Onset: Today Current Severity: Mild Maximum Severity: Moderate Narrative: Patient had a port placed to her right upper chest [address] Mendez. Patient states that she last got chemotherapy 3 days ago. Patient states the area today around the port has become more swollen and painful. It extends up onto her right lower neck. She denies fever. When I reviewed the oncology note from her most recent visit on the second, they do note that the patient left the cancer center and went to her car with her port accessed. She later returned for her chemotherapy. Patient does have a known history of amphetamine abuse and has been declined from some treatment programs because of this. 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 (5) Hypertension Status: Chronic (6) Tobacco use disorder Status: Chronic Past Medical History - Allergies and Home Meds Allergies/Adverse Reactions: Allergies acetaminophen [From Vicodin] Allergy (Severe, Verified 12/22/18 13:57) Swelling rash, hydrocodone bitartrate [From Vicodin] Allergy (Severe, Verified 12/22/18 13:57) Swelling rash Primary Care Physician: Care Physician,No Primary [Primary Care Provider] - Prior records reviewed: Yes Past Medical History: - - Reviewed Smoking Status: Current every day smoker Review of Systems General: Denies: Chills, Fever Cardiovascular: Reports: Chest pain, - - Around the port in the right upper chest Respiratory: Denies: Dyspnea, Cough Musculoskeletal: Reports: Myalgias, - - Pain and mild swelling along the right inferior neck. Physical Exam Vital Signs/Narrative: Vital Signs Temp Pulse Resp BP Pulse Ox 12/22/18 13:57 97.8 F 100 16 116/52 L 96 Inital Vital Signs reviewed: Yes General: Well nourished, Well developed Eyes: Perrl, EOMI ENT: Moist mucous membranes Neck: Supple - Minimal edema noted along the inferior right lateral neck. No palpable abscess. No overlying cellulitis., - Cardiovascular: Regular rate, Regular rhythm, No murmurs Respiratory: No distress, CTA bilaterally, Chest tenderness, - - Tenderness to palpation around the port in the right upper chest. No significant sinus cellulitis. Very minimal edema. Abdomen: Soft, Nontender Skin: Normal color Psychological: - - Anxious Diagnostic/Tx/Re-eval Abnormal Lab Results 12/22/18 12/22/18 14:25 14:25 WBC 37.6 H* RBC 4.43 Hgb 13.7 Hct 37.8 MCV 85.3 MCH 30.9 MCHC 36.2 H RDW 15.1 H RDW Differential 46.8 H Plt Count 132 L MPV 10.7 Neut % (Auto) Not Reportable Absolute Neuts (auto) 36.1 H Absolute Lymphs (auto) 1.50 Total Counted 100 Neutrophils % (Manual) 78 H Band Neutrophils % 18 H Lymphocytes % (Manual) 4 L Diff Path Review May foll Platelet Estimate SLT DEC Sodium 134 L Potassium 4.0 Chloride 100 Carbon Dioxide 28.0 Anion Gap 6 BUN 18 Creatinine 0.72 Estim Creat Clear Calc 80.80 Est GFR (MDRD) Af Amer 107 Est GFR (MDRD) Non-Af 88 BUN/Creatinine Ratio 25.2 H Glucose 347 H Calcium 9.1 Clinical Impression(s) from Imaging Studies Chest CT 12/22/18 14:11 IMPRESSION: Normal enhanced CT Chest examination. Electronically Signed: Sukhwinder Forbes MD at 16:23 EDT , Service support , Soft Tissue Neck CT 12/22/18 14:11 IMPRESSION: 1.3 x 1.4 cm left thyroid lobe nodule with coarse calcification. Shotty subcentimeter right level 2 cervical lymph nodes have markedly decreased in size. Electronically Signed: Zora Hawkins, at 16:38 EDT Tel , Service support , - Medical Decision Making I spoke with the patient's oncologist shortly after my initial evaluation. Patient did complete her chemotherapy on the second. She did get a Neulasta shot. Test results are discussed with the patient. She does have significant elevation in white count secondary to her Neulasta. Remainder of blood work looks unremarkable. CT scans do not show anything acute. Blood cultures were sent and she was advised this would take 2 days for a final answer. She is complaining of significant bone pain which may be secondary to her Neulasta injection. She will be given 10 tabs of Percocet for pain. She is to follow-up with her oncologist next week. ED Disposition - Plan for ED Patient: Diagnosis: Myalgia, Arthralgia Instructions: Arthralgia Prescriptions: Oxycodone HCl/Acetaminophen [Percocet 5/325] 1 tablet PO Q6H PRN PRN 3 Days #12 tablet PRN Reason: Pain Referrals: Vandana Loco MD [STAFF PHYSICIAN] - 5-7 Days
[2018-12-22 14:38] LABS: Differential Indicated MANUAL DIFF; POSITIVE COUNT YES; POSITIVE DIFFERENTIAL YES; POSITIVE MORPHOLOGY YES
[2018-12-22 14:45] LABS: White Blood Count 37.6 K/mm3 (4.4-11.0)
[2018-12-22 15:06] LABS: Anion Gap 6 (5-15); BUN 18 mg/dL (7-18); BUN/Creat Ratio 25.2 RATIO (10-20); Calcium,Total 9.1 mg/dL (8.5-10.1); Chloride 100 mmol/L (98-107); Creatinine, Serum 0.72 mg/dL (0.55-1.02); EST Glomerular Filtration Rate 88 mL/min (>60); Est Glom Filt Rate - Afr Amer 107 mL/min (>60); Glucose 347 mg/dL (74-106); Sodium Level 134 mmol/L (136-145)
[2018-12-22 15:24] LABS: Lymphocyte 4 % (19-41); Neutrophil-Band 18 % (0-5); Neutrophil-Segmented 78 % (47-70); Total Cells Counted 100 (MANUAL DIFF)
[2018-12-22 15:27] LABS: Absolute Neutrophil Count 36.1 X10^3/uL (2.0-7.7)
[2018-12-22 15:28] LABS: Platelet Estimate SLT DEC (ADEQ)
[2018-12-22 17:04] VITALS: BP 126/75; RESP 16
[2018-12-26 09:55] LABS: Pathologist Review Reviewed
== END 2018-12-22 17:05 | disposition home or self-care (01) ==
LOC: ED 14:16
PROVIDERS: Emergency Provider Emergency Medicine
DX: M79.18 Myalgia, other site (principal); R07.9 Chest pain, unspecified; R60.0 Localized edema; E04.1 Nontoxic single thyroid nodule; C83.30 Diffuse large B-cell lymphoma, unspecified site; F15.10 Other stimulant abuse, uncomplicated; E11.9 Type 2 diabetes mellitus without complications; I10 Essential (primary) hypertension; Z95.9 Presence of cardiac and vascular implant and graft, unspecified; Z79.4 Long term (current) use of insulin; Z79.899 Other long term (current) drug therapy; F17.200 Nicotine dependence, unspecified, uncomplicated
CPT/HCPCS: 36591; 70491; 71260; 80048; 85025; 87040; 96361; 96374; 96375; 99285; J7030; Q9967; A4216; J2405

== ENCOUNTER → 2019-01-23 | Outpatient (CLI) | payer MEDICAID, SELFPAY ==
[2019-01-09 08:42] VITALS: BMI 28.8
[2019-01-18 09:36] VITALS: BMI 26.9
[2019-01-18 10:31] VITALS: BMI 26.9
--- NOTE | 2019-01-23 13:04 | ECHODONC_ITS ---
Reason For Study: HIGH RISK MEDS Procedure This was a 2D Doppler, Color Flow transthoracic echocardiogram. Myocardial strain analysis was performed in this exam to aid in the assessment of cardiac function. The study was technically difficult. Exam performed in department. Left Ventricle Normal LV size. Sigmoid septum. Left ventricular systolic function is normal. The estimated ejection fraction is 65 %. The global longitudinal strain = -18 % (normal). No evidence for diastolic dysfunction. No regional wall motion abnormalities noted. Right Ventricle Normal RV size. Normal systolic function. Atria Normal left atrium. Normal right atrium. No doppler evidence for ASD. Mitral Valve There is no mitral annular calcification. Normal mitral valve. Mild (1+) mitral valve insufficiency. Tricuspid Valve Normal tricuspid valve. Trivial tricuspid valve insufficiency. Right ventricular systolic pressure estimated to be 17 mmHg. Aortic Valve Trisinus/trileaflet aortic valve. Normal aortic valve. Trivial aortic valve insufficiency. Pulmonic Valve The pulmonic valve is not well visualized. Great Vessels Normal sized aortic root. Pericardium/Pleural No pericardial effusion. MMode/2D Measurements & Calculations LVIDd: 4.7 cm IVSd: 1.0 cm Ao root diam: 3.3 cm LVIDs: 3.3 cm LVPWd: 1.1 cm RVDd: 3.2 cm FS: 30.0 % LAV(MOD-bp): 21.5 ml LVAd ap4: 23.9 cm2 SV(MOD-sp4): 34.3 ml LAV(MOD-bp) Indexed: 11.3 ml/m2 EDV(MOD-sp4): 69.0 ml LAV(MOD-sp2): 25.1 ml EDV(sp4-el): 72.1 ml LAV(MOD-sp4): 16.2 ml LVAs ap4: 15.1 cm2 ESV(MOD-sp4): 34.7 ml ESV(sp4-el): 33.1 ml EF(MOD-sp4): 49.7 % EF(sp4-el): 54.1 % SV(sp4-el): 39.0 ml LA A4 area: 8.8 cm2 LA dimension(2D): 2.8 cm RA A4 area: 6.2 cm2 Time Measurements MV dec time: 0.17 sec Doppler Measurements & Calculations MV E max cresencio: 66.4 cm/sec Lat Peak E' Cresencio: 6.6 cm/sec Med Peak E' Cresencio: 6.8 cm/sec MV A max cresencio: 89.1 cm/sec E/E' lat: 10.1 E/E' med: 9.8 MV E/A: 0.75 Ao V2 max: 126.9 cm/sec LV V1 max: 129.0 cm/sec PA V2 max: 96.5 cm/sec Ao max P.4 mmHg LV V1 max P.7 mmHg TR max cresencio: 186.3 cm/sec TR max P.9 mmHg Interpretation Summary The study was technically difficult. Left ventricular systolic function is normal. The estimated ejection fraction is 65 %. The global longitudinal strain = -18 % (normal). Sigmoid septum. Mild (1+) mitral valve insufficiency. Trivial tricuspid valve insufficiency. Trivial aortic valve insufficiency. Right ventricular systolic pressure estimated to be 17 mmHg. No evidence for diastolic dysfunction. Ordering Physician: Vandana Loco Referring Physician: Vandana Loco Performed By: Rosaura Campa RDCS
--- NOTE | 2019-01-23 14:50 | BI_ITS ---
MAMMOGRAPHY - BILATERAL SCREENING REASON FOR EXAM: Female, 59 years old. Routine annual screening examination. PERTINENT HISTORY: Non-contributory. TECHNIQUE: Digital bilateral breast christina (3D mammographic acquisition) in the CC and MLO projections. 2-D mediolateral oblique (MLO) and craniocaudad (CC) views of both breasts were obtained. CAD: Full Field Digital Mammography with Computer Added Detection was performed. COMPARISON: Comparison is made with prior abdomen examination dated September 26, 2017. FINDINGS: Breast Composition: There are scattered areas of fibroglandular density. There are no dominant masses or suspicious calcifications. No other significant abnormalities are identified. There has been no significant change since the prior study. BI/SCREEN MAMM (CAD) W/CHRISTINA BILAT IMPRESSION: Stable bilateral screening mammogram. Yearly follow-up mammogram recommended. (A) ASSESSMENT CATEGORY: BIRADS Category 2: Benign. A letter regarding these results will be sent to the patient by the facility within 30 days. Approximately 10% of breast cancers are not detected by mammography. A normal mammogram should not delay biopsy of a clinically suspicious abnormality. [id number] Electronically Signed: Yariel Cool, at 8:58 EDT , Service support ,
== END | disposition home or self-care (01) ==
PROVIDERS: Family Provider Internal Medicine; PCP Internal Medicine; Referring Provider Internal Medicine Hematology & Oncology; Visit Provider Internal Medicine Hematology & Oncology
DX: C83.30 Diffuse large B-cell lymphoma, unspecified site (principal); Z12.31 Encounter for screening mammogram for malignant neoplasm of breast; Z79.899 Other long term (current) drug therapy
CPT/HCPCS: 0399T; 77063; 77067; 93306

== ENCOUNTER 2020-03-03 20:53 | Emergency (ER) | payer MEDICAID, SELFPAY ==
[2019-01-18 09:36] VITALS: BMI 26.9
[2019-02-08 14:00] VITALS: BMI 27.2
[2020-03-03 20:54] VITALS: BP 159/88; PULSE 94; RESP 20; TEMP 36.6; O2SAT 99; BMI 22.5
[2020-03-03] MEDS: traMADol 50 MG Tablet PO (21:49)
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
== END 2020-03-03 23:02 | disposition home or self-care (01) ==
LOC: ED 22:10
PROVIDERS: Emergency Provider Emergency Medicine; PCP Internal Medicine
DX: S20.212A Contusion of left front wall of thorax, initial encounter (principal); W19.XXXA Unspecified fall, initial encounter; Y93.9 Activity, unspecified; Y92.9 Unspecified place or not applicable; I10 Essential (primary) hypertension; E11.9 Type 2 diabetes mellitus without complications; F60.9 Personality disorder, unspecified; Z85.72 Personal history of non-Hodgkin lymphomas; Z79.4 Long term (current) use of insulin; Z79.899 Other long term (current) drug therapy; F17.200 Nicotine dependence, unspecified, uncomplicated
CPT/HCPCS: 71101; 99282

== ENCOUNTER 2020-08-21 23:22 | Inpatient (IN) | payer MEDICAID, SELFPAY ==
[2019-01-18 09:36] VITALS: BMI 26.9
[2020-08-21 23:22] VITALS: BP 147/69; PULSE 113; RESP 18; TEMP 36.6; O2SAT 95; BMI 26.6
--- NOTE | 2020-08-21 23:32 | ED.DCSUM_ITS ---
History of Present Illness Chief Complaint: General Illness Informant: Patient, Friend Onset: Days Context: Gradual Onset Timing: Continuous Current Severity: Moderate Maximum Severity: Moderate Narrative: The patient is a 60-year-old female with history of diffuse large cell lymphoma, status post chemo, who presents to the emergency department multiple complaints. Patient has not been feeling well over the past 3 days. She apparently had a fall and struck her ribs. Since then, she began to have loose, watery diarrhea. She has had a difficult time making it to the bathroom. She states that today, she just felt fatigued and worn out. She is unsure if she is had fever. She denies chills. She does admit to some abdominal cramping. Patient also has history of amphetamine abuse. She has been intermittently compliant with all of her therapies. Prior similar symptoms: No Recent Illness/Hospitalization: No Past Medical History - Allergies and Home Meds Allergies/Adverse Reactions: Allergies acetaminophen [From Vicodin] Allergy (Severe, Verified 08/21/20 23:25) Swelling rash, hydrocodone bitartrate [From Vicodin] Allergy (Severe, Verified 08/21/20 23:25) Swelling rash Prior records reviewed: Yes Past Medical History: - - Lymphoma, amphetamine abuse Surgical History: noncontributory Smoking Status: Current every day smoker Review of Systems General: Denies: Chills, Fever, Sweats Eyes: Denies: Visual changes - bilaterally, Diplopia ENT: Denies: Rhinorrhea, Sore throat Cardiovascular: Denies: Chest pain, Palpitations Respiratory: Denies: Dyspnea, Cough, Dyspnea on exertion Gastrointestinal: Reports: Abdominal pain, Nausea, Diarrhea. Denies: Vomiting, Melena, Hematochezia Genitourinary: Denies: Dysuria, Hematuria, Frequency Musculoskeletal: Denies: Back pain, Extremity Pain Skin: Denies: Rash, Wounds Neurological: Denies: Headache, Weakness, Numbness Physical Exam Vital Signs/Narrative: Vital Signs Temp Pulse Resp BP Pulse Ox 08/21/20 23:22 97.9 F 113 H 18 147/69 H 95 Inital Vital Signs reviewed: Yes General: Well nourished, Well developed, No Acute Distress Head: Normocephalic, Atraumatic Eyes: Perrl, EOMI ENT: Moist mucous membranes, No rhinorrhea Neck: Supple, Nontender Cardiovascular: Regular rate, Regular rhythm, No murmurs Respiratory: No distress, CTA bilaterally, Chest nontender, - - The patient's port site is erythematous with some central fluctuance. There is no streaking. Abdomen: Soft, Nontender, Nondistended, Normal bowel sounds Back: Nontender, Normal Inspection Extremities: Nontender, No edema Skin: Normal color, No rash Neurological: Alert, Oriented x3, Cranial nerves II-XII grossly intact, Normal Strength, Normal Sensation Psychological: Normal affect, Normal Mood Diagnostic/Tx/Re-eval Clinical Impression(s) from Imaging Studies Chest X-Ray 08/22/20 00:00 IMPRESSION: COPD without acute findings Electronically Signed: Jim Meier DO at 0:22 EST Tel , Service support , Brain CT 08/22/20 23:30 IMPRESSION: Chronic involutional changes of the brain. Electronically Signed: Jim Meier DO at 0:53 EST Tel , Service support , Abdomen/Pelvis CT 08/22/20 23:31 IMPRESSION: 1. Gallstones with prominent pericholecystic fluid and gallbladder wall thickening as well as dilated common bile duct. Findings are concerning for acute cholecystitis 2. No evidence to suggest colitis or acute diverticulitis 3. Lung bases are clear Electronically Signed: Jim Meier DO at 0:55 EST Tel , Service support , Abnormal Lab Results 08/21/20 08/21/20 08/21/20 23:45 23:45 23:45 WBC 10.4 RBC 3.52 L Hgb 10.1 L Hct 30.5 L MCV 86.6 MCH 28.7 MCHC 33.1 RDW Std Deviation 45.5 H RDW Coeff of Devi 14.5 Plt Count 103 L MPV 10.9 Immature Gran % (Auto) 1.300 H Neut % (Auto) 95.4 H Lymph % (Auto) 1.9 L [place] % (Auto) 0.6 Eos % (Auto) 0.1 Baso % (Auto) 0.7 Absolute Neuts (auto) 10.0 H Absolute Lymphs (auto) 0.20 L Nucleated RBC % 0 Differential Comment SCANNED Sodium 135 L Potassium 3.9 Chloride 98 Carbon Dioxide 31.0 Anion Gap 6 BUN 13 Creatinine 0.78 Estim Creat Clear Calc 72.72 Est GFR (MDRD) Af Amer 97 Est GFR (MDRD) Non-Af 80 BUN/Creatinine Ratio 16.8 Glucose 386 H Lactic Acid 3.5 H* Calcium 8.6 Total Bilirubin 1.10 H AST 18 ALT 17 Alkaline Phosphatase 181 H Total Protein 6.6 Albumin 2.5 L Globulin 4.1 Albumin/Globulin Ratio 0.6 L Lipase 36 L Urine Color Urine Clarity Urine pH Ur Specific [place] Urine Protein Urine Glucose (UA) Urine Ketones Urine Occult Blood Urine Nitrite Urine Bilirubin Urine Urobilinogen Ur Leukocyte Esterase Urine RBC Urine WBC Ur Squamous Epith Cells Urine Bacteria Urine Mucus Urine Opiates Screen Urine Methadone Screen Ur Barbiturates Screen Ur Phencyclidine Scrn Ur Amphetamines Screen U Methamphetamin-MDMA U Benzodiazepines Scrn Urine Cocaine Screen U Cannabinoids Screen Ur Drug Screen Comment 08/21/20 08/21/20 23:45 23:45 WBC RBC Hgb Hct MCV MCH MCHC RDW Std Deviation RDW Coeff of Devi Plt Count MPV Immature Gran % (Auto) Neut % (Auto) Lymph % (Auto) [place] % (Auto) Eos % (Auto) Baso % (Auto) Absolute Neuts (auto) Absolute Lymphs (auto) Nucleated RBC % Differential Comment Sodium Potassium Chloride Carbon Dioxide Anion Gap BUN Creatinine Estim Creat Clear Calc Est GFR (MDRD) Af Amer Est GFR (MDRD) Non-Af BUN/Creatinine Ratio Glucose Lactic Acid Calcium Total Bilirubin AST ALT Alkaline Phosphatase Total Protein Albumin Globulin Albumin/Globulin Ratio Lipase Urine Color Yellow Urine Clarity Sl. Cloudy Urine pH 5.0 Ur Specific [place] 1.015 Urine Protein 30 H Urine Glucose (UA) 1000 H Urine Ketones Negative Urine Occult Blood 25 H Urine Nitrite Negative Urine Bilirubin Negative Urine Urobilinogen 4 H Ur Leukocyte Esterase Negative Urine RBC 0-5 SEEN Urine WBC 0-5 SEEN Ur Squamous Epith Cells 0 SEEN Urine Bacteria 0 SEEN Urine Mucus 0 SEEN Urine Opiates Screen NEGATIVE Urine Methadone Screen NEGATIVE Ur Barbiturates Screen NEGATIVE Ur Phencyclidine Scrn NEGATIVE Ur Amphetamines Screen NEGATIVE U Methamphetamin-MDMA NEGATIVE U Benzodiazepines Scrn NEGATIVE Urine Cocaine Screen NEGATIVE U Cannabinoids Screen NEGATIVE Ur Drug Screen Comment - Rhythm Strip Rhythm Strip: Sinus Tach Rate: 110 Ectopy: None - Medical Decision Making The patient was actually seen at [facility] 2 days ago. At that point, she had a CTA of her chest due to history of pulmonary embolus. This was negative for PE. She had a CT of her abdomen pelvis which was also unremarkable. She did not have a significant leukocytosis. Her urine did not show evidence of infection. Aside from hyperglycemia, her labs are otherwise unremarkable. She was given a prescription for [place] for 3 days for chest wall pain after a fall. On arrival, the patient was delirious. She was borderline combative. It was hard to examine the patient. With her history of amphetamine abuse, I did feel she was going to require significant metabolic work-up. Patient was given 1 mg of Ativan and 10 mg of IM Geodon. When she was more comfortable, we were able to do a complete evaluation. She does have some tenderness in her right upper quadrant with some voluntary guarding. Broad metabolic work-up was pursued. I am concerned that her Mediport is infected. There does seem to be a fluctuant area over top. I did not obtain a culture of this area, as I was concerned for seeding the port. The patient underwent CT imaging of the brain which was unremarkable for acute process. Chest x-ray was obtained. There is no cardiomegaly. There is changes that are consistent with COPD, but no focal infiltrative process. This was reviewed by myself and the radiologist. Patient underwent CT of abdomen pelvis. There is evidence of acute cholecystitis. The patient has multifactorial processes of infection. Her lactic acid is 3.5. She has severe sepsis. She was covered with broad-spectrum antibiotics. I did discuss the patient's case with Dr. Mendez, surgery parachute cushion installer. She did come and evaluate the patient in the emergency department. The decision was made to remove the patient's Mediport at the bedside. As the patient was septic, this was an emergent procedure. However, I was able to talk to the patient's daughter Monalisa who consented for the procedure as the patient could not. At this time, the patient will be admitted to the intensive care unit. Plan for formal ultrasound in the morning to determine cholecystectomy versus a PERC Mallory drain. We will continue broad-spectrum antibiotics and await on blood cultures. Dr. Manning was at bedside to remove the patient's port. I was asked to offer conscious sedation. The patient was given a total of 50 mg of propofol. She was moderately sedated. The port was able to be removed. It was incised there was significant purulence was expressed. Both the purulence and the port will be sent for culture. Impression 1. Severe sepsis 2. Infected Mediport 3. Acute cholecystitis 4. Delirium 5. Conscious sedation by ED physician - Critical Care Time Critical care time (excluding procedures): 30-74 minutes, Discussing w/Patient &/or Family/Youth Worker, Discussing w/Consultants, Arranging Admission or Transfer, Performing Direct Patient Care at Bedside ED Disposition - Plan for ED Patient:
[2020-08-21 23:57] LABS: Basophil# 0.07 X10^3/uL; Basophil% 0.7 % (0-1); Eosinophil# 0.01 X10^3/uL; Eosinophils% 0.1 % (0-5); Hematocrit 30.5 % (37-47); Hemoglobin 10.1 g/dL (12.0-15.0); Lymphocyte % 1.9 % (19-41); Mean Corp Hgb Conc 33.1 g/dL (32-36); Mean Corpuscular Hgb 28.7 pg (27.0-32.0); Mean Corpuscular Volume 86.6 fL (81-99); Mean Platelet Vol. 10.9 fl (6.2-12.0); Monocyte# 0.06 X10^3/uL; Monocyte% 0.6 % (0-10); NRBC Flagged by Analyzer 0 % (0-5); Neutrophil # 9.95 X10^3/uL (2.7-7.7); Neutrophil % 95.4 % (47-70); POSITIVE DIFFERENTIAL YES; POSITIVE MORPHOLOGY YES; Platelet Count 103 K/mm3 (150-450); RBC Distribution Width CV 14.5 % (11.6-14.6); RBC Distribution Width SD 45.5 fl (35.1-43.9); Red Blood Count 3.52 M/mm3 (4.2-5.4); White Blood Count 10.4 K/mm3 (4.4-11.0)
[2020-08-21 23:58] LABS: Bacteria 0 SEEN /hpf (None Seen); Mucous, Urine 0 SEEN /hpf (<or=2+); Squamous Epithelial Cells - UA 0 SEEN /hpf (5-10)
[2020-08-21] MEDS: LORazepam 2 MG/ML Syringe 1 MG IV (23:59)
[2020-08-21] MEDS: Ondansetron 4 MG/2 ML Vial IV (23:59)
[2020-08-21] MEDS: 0.9% Normal Saline 1,000 ML 999 ML IV (23:59)
[2020-08-22] VITALS (58 sets, daily range): BP systolic 66–131; BP diastolic 46–96; PULSE 67–116; RESP 15–98; TEMP 36.6–38.3; O2SAT 27–99; BMI 23.8
[2020-08-22] LABS: Color, Urine Yellow (Yellow); Glucose, Dipstick 1000 mg/dl (Normal); Ketone-Dipstick Negative (Negative); Leukocyte Esterase-Dipstick Negative /ul (Negative); Nitrite-Dipstick Negative (Negative); Occult Blood-Urine 25 /ul (Negative); Protein-Dipstick 30 mg/dl (Negative); Specific Gravity, Urine 1.015 (1.002-1.030); Urine Bilirubin Dipstick Negative (Negative); Urine Clarity Sl. Cloudy (Clear); Urine Urobilinogen 4 mg/dl (Normal)
--- NOTE | 2020-08-22 | RAD_ITS ---
STUDY: X-RAY CHEST REASON FOR EXAM: Female, 60 years old. cough TECHNIQUE: Single AP portable view of the chest. COMPARISON: 03/03/2020 FINDINGS: There is hyperinflation of the lungs consistent with chronic obstructive lung disease (COPD). No acute airspace disease. There is no demonstrated pleural abnormality. Stable right chest wall Mediport Normal size heart. Normal mediastinum and jocy. Normal visualized pulmonary arteries. Normal visualized aortic arch and descending thoracic aorta. Normal visualized thoracic spine. Normal visualized ribs, clavicles, and shoulders. There is no demonstrated abnormality of the visualized soft tissue structures of the upper abdomen. RAD/Chest 1 View (Portable) IMPRESSION: COPD without acute findings Electronically Signed: Jim Meier DO at 0:22 EST Tel , Service support ,
[2020-08-22 00:01] LABS: Differential Indicated SCAN CRITERIA MET
[2020-08-22] MEDS: Ziprasidone IM 20 MG/ML VIAL 10 MG IM (00:04)
[2020-08-22 00:06] LABS: Red Blood Cells-Urine 0-5 SEEN /hpf (0-5); White Blood Cells 0-5 SEEN /hpf (0-5)
[2020-08-22 00:19] LABS: ALB/GLOB Ratio 0.6 RATIO (0.9-2.4); AST(SGOT) 18 U/L (15-37); Alanine Aminotransfer ALT/SGPT 17 U/L (13-56); Albumin, Serum 2.5 g/dL (3.2-5.0); Alkaline Phosphatase 181 U/L (45-117); Anion Gap 6 (5-15); BUN 13 mg/dL (7-18); BUN/Creat Ratio 16.8 RATIO (10-20); Calcium,Total 8.6 mg/dL (8.5-10.1); Chloride 98 mmol/L (98-107); Creatinine, Serum 0.78 mg/dL (0.55-1.02); EST Glomerular Filtration Rate 80 mL/min (>60); Est Glom Filt Rate - Afr Amer 97 mL/min (>60); Estimated Creatinine Clearance 72.72 ml/min; Globulin 4.1 g/dL (2.2-4.2); Glucose 386 mg/dL (74-106); Lipase 36 U/L (73-393); Potassium 3.9 mmol/L (3.5-5.1); Protein, Total 6.6 g/dL (6.4-8.2); Sodium Level 135 mmol/L (136-145)
[2020-08-22 00:31] LABS: Amphetamine Urine VISTA NEGATIVE (<1000 ng/mL); Barbiturate Urine VISTA NEGATIVE (< 200 ng/mL); Benzodiazepine Urine VISTA NEGATIVE (< 200 ng/mL); Cocaine Urine VISTA NEGATIVE (< 300 ng/mL); Ecstacy Urine VISTA NEGATIVE (< 500 ng/mL); Lactic Acid 3.5 mmol/L (0.4-1.9); Methadone Urine VISTA NEGATIVE (< 300 ng/mL); PCP Urine VISTA NEGATIVE (< 25 ng/mL); THC Urine VISTA NEGATIVE (< 50 ng/mL); Vista UDS pH Range 5
[2020-08-22 00:38] LABS: Differential Comment SCANNED
[2020-08-22] MEDS: 0.9% Normal Saline 1,000 ML 999 ML IV ×3 (00:54→02:43)
--- NOTE | 2020-08-22 01:24 | CON.PCM_ITS ---
Reason for Consult Date of Consultation: 08/22/20 History of Present Illness: The patient is a 60 year old F brought to ER due not being that responsive for the last couple days. Patient unable to give any history as she is not cooperative initially and did receive Geodon due to combativeness in the ER. Patient had right IJ port placed in November 2018 by me for diffuse large cell B lymphoma, history from ER doctor patient has history of amphetamine abuse and was thrown out of the clinical trial so the last time she received chemo was probably in 2019. Patient's port site was obviously infected, CT abdomen pelvis also showed pericholecystic fluid with cholelithiasis. Past Medical History Past Medical History (Chronic Problems): Chronic Problems (Last Reviewed 02/08/19 @ 13:59 by Yary Garcia) Diabetes mellitus (Chronic) Hypertension (Chronic) Poor compliance with medication (Chronic) Amphetamine abuse, continuous (Chronic) Type 2 diabetes mellitus (Chronic) History of personality disorder (Chronic) Tobacco use disorder (Chronic) DLBCL (diffuse large B cell lymphoma) (Chronic) Medical History: Medical History (Last Reviewed 02/08/19 @ 13:59 by Yary Garcia) History of personality disorder (Chronic) Z86.59 Tobacco use disorder (Chronic) F17.200 DLBCL (diffuse large B cell lymphoma) (Chronic) C83.30 Hyperactive (Acute) F90.9 Hyperglycemia (Acute) R73.9 Diabetes E11.9 Neck mass R22.1 port placement COPD (chronic obstructive pulmonary disease) J44.9 HTN (hypertension) I10 Allergies acetaminophen [From Vicodin] Allergy (Severe, Verified 08/21/20 23:25) Swelling rash, hydrocodone bitartrate [From Vicodin] Allergy (Severe, Verified 08/21/20 23:25) Swelling rash Home Medications: Ambulatory Orders Medication Instructions Recorded Albuterol Inhaler [Ventolin Hfa] 1 - 2 puff INHALATION Q4H PRN PRN 03/22/13 #1 inhaler Insulin Aspart [Novolog Flexpen 12 units SUBCUT TIDCM #1 flexpen 02/06/15 ([facility])] Insulin Glargine,Hum.rec.anlog 60 unit SQ QHS #1 bottle 02/06/15 [Lantus] Lisinopril 5 mg PO DAILY 09/08/18 Ondansetron [Zofran] 8 mg PO Q8H PRN PRN #30 tab 12/19/18 Oxycodone HCl/Acetaminophen 1 tab PO Q4H PRN PRN 01/01/19 [Percocet 5/325] flash glucose scanning reader See Rx Instructions .ROUTE 01/08/19 .MEDSUPPLY #1 ea flash glucose sensor See Rx Instructions .ROUTE 01/08/19 .MEDSUPPLY #1 ea Surgical History: Surgical History (Last Reviewed 02/08/19 @ 13:59 by Yary Garcia) History of section Z98.891 History of colonoscopy Z98.890 History of esophagogastroduodenoscopy (EGD) Z98.890 History of lymph node biopsy Z98.890 Status post myringotomy with insertion of tube Z96.22 Surgical History: noncontributory Smoking Status: Current every day smoker Review of Systems Unable to obtain accurate/complete ROS d/t: Unable to obtain due to patient being sedated/combative - Physical Exam Vitals/I&O's: Vital Signs Temp Pulse Resp BP Pulse Ox 101.0 F H 104 H 33 H 100/57 L 99 08/22/20 00:57 08/22/20 00:57 08/22/20 00:57 08/22/20 00:57 08/22/20 00:57 Oxygen Flow Rate (L/min) 2 Oxygen Delivery Method Nasal Cannula Weight: 170 lb Body Mass Index (BMI) 26.6 Intake and Output for Last 24 Hours 08/20/20 08/21/20 08/22/20 23:59 23:59 23:59 Intake Total 915.75 / 915.75 Balance 915.75 / 915.75 General: Lethargic - /Sedated, Non-Cooperative Abdomen: Soft, Non-Distended, - - unAble determined patient is tender as she groans if any spot is pressed Extremities: No clubbing, No cyanosis Neurological: - - Able to access as patient is not cooperative/sedated Microbiology Past 72 Hours 08/22/20 00:10 Mucosa - Nose SARS-CoV-2 Antigen (Rapid) - Final Laboratory Results 08/21/20 23:45: WBC 10.4, RBC 3.52 L, Hgb 10.1 L, Hct 30.5 L, MCV 86.6, MCH 28.7, MCHC 33.1, RDW Std Deviation 45.5 H, RDW Coeff of Devi 14.5, Plt Count 103 L, MPV 10.9, Immature Gran % (Auto) 1.300 H, Neut % (Auto) 95.4 H, Lymph % (Auto) 1.9 L, [place] % (Auto) 0.6, Eos % (Auto) 0.1, Baso % (Auto) 0.7, Absolute Neuts (auto) 10.0 H, Absolute Lymphs (auto) 0.20 L, Nucleated RBC % 0, Differential Comment SCANNED 08/21/20 23:45: Sodium 135 L, Potassium 3.9, Chloride 98, Carbon Dioxide 31.0, Anion Gap 6, BUN 13, Creatinine 0.78, Estim Creat Clear Calc 72.72, Est GFR (MDRD) Af Amer 97, Est GFR (MDRD) Non-Af 80, BUN/Creatinine Ratio 16.8, Glucose 386 H, Calcium 8.6, Total Bilirubin 1.10 H, AST 18, ALT 17, Alkaline Phosphatase 181 H, Total Protein 6.6, Albumin 2.5 L, Globulin 4.1, Albumin/Globulin Ratio 0.6 L, Lipase 36 L 08/21/20 23:45: Lactic Acid 3.5 H* 08/21/20 23:45: Urine Color Yellow, Urine Clarity Sl. Cloudy, Urine pH 5.0, Ur Specific [place] 1.015, Urine Protein 30 H, Urine Glucose (UA) 1000 H, Urine Ketones Negative, Urine Occult Blood 25 H, Urine Nitrite Negative, Urine Bilirubin Negative, Urine Urobilinogen 4 H, Ur Leukocyte Esterase Negative, Urine RBC 0-5 SEEN, Urine WBC 0-5 SEEN, Ur Squamous Epith Cells 0 SEEN, Urine Bacteria 0 SEEN, Urine Mucus 0 SEEN 08/21/20 23:45: Urine Opiates Screen NEGATIVE, Urine Methadone Screen NEGATIVE, Ur Barbiturates Screen NEGATIVE, Ur Phencyclidine Scrn NEGATIVE, Ur Amphetamines Screen NEGATIVE, U Methamphetamin-MDMA NEGATIVE, U Benzodiazepines Scrn NEGATIVE, Urine Cocaine Screen NEGATIVE, U Cannabinoids Screen NEGATIVE, Ur Drug Screen Comment Current Medications Sodium Chloride () 1,000 mls @ 999 mls/hr IV .Q1H1M RAHEEM Stop: 08/22/20 01:30 Last Admin: 08/22/20 00:54 Dose: 999 mls/hr Documented by: Vancomycin IV Pharmacy to Dose (1 ea/ Sodium Chloride) 500 mls @ 250 mls/hr IV X1 PRN; Protocol PRN Reason: Rx to Dose Vancomycin HCl 1,250 mg/ (Sodium Chloride) 275 mls @ 167 mls/hr IV X1 ONE Stop: 08/22/20 03:08 Assessment/Plan All Active Problems (Last Reviewed 02/08/19 @ 13:59 by Yary Garcia) Bronchitis (Acute) Diarrhea (Acute) Mandibular abscess (Acute) Abdominal pain (Acute) Skin lesions (Acute) Chemotherapy-induced thrombocytopenia (Acute) CINV (chemotherapy-induced nausea and vomiting) (Acute) Dehydration (Acute) Hyperactive (Acute) Hyperglycemia (Acute) 60-year-old female-infected right IJ Port-A-Cath, cholecystitis, sepsis 1. Patient's right IJ port was obviously infected with fluctuance and erythema about 5 cm x 5 cm overlying the port. Did obtain consent from patient's daughter as well as this was need to be done emergently to help control in fection. See operative report. Patient was well combative and did needle bit of propofol per ER in order to remove the port. Culture obtained from the purulent drainage, as well as port was sent for culture. 2. Cholelithiasis/pericholecystic fluid likely acute cholecystitis we will plan to get an ultrasound in the morning. Depending on patient's overall status possible cholecystostomy tube with delayed laparoscopic cholecystectomy versus laparoscopic cholecystectomy; unable to discussing this with the patient as she is not alert and oriented and sedated. 3. Continue on Zosyn/Vanco IV. Julia Mendez M.D. Pager: [phone] [facility] [address] [place] [address], [facility], [address] [place] [address] Office: [phone]
--- NOTE | 2020-08-22 01:26 | PCM.HP.STD ---
Problem List (1) Severe sepsis Status: Acute (2) Diabetes mellitus Status: Chronic (3) Hypertension Status: Chronic (4) Diarrhea Status: Acute Qualifiers: Diarrhea type: unspecified type Qualified Code(s): R19.7 - Diarrhea, unspecified (5) Poor compliance with medication Status: Chronic (6) Amphetamine abuse, continuous Status: Chronic (7) Type 2 diabetes mellitus Status: Chronic (8) History of personality disorder Status: Chronic (9) Tobacco use disorder Status: Chronic (10) DLBCL (diffuse large B cell lymphoma) Status: Chronic Qualifiers: Lymphoma site: neck Qualified Code(s): C83.31 - Diffuse large B-cell lymphoma, lymph nodes of head, face, and neck (11) Hyperglycemia Status: Acute (12) Cholecystitis Status: Acute History of Present Illness Date of Admission: 08/22/20 Chief Complaint: Malaise The patient is a 60 year old F with a significant history of COPD; diabetes mellitus; diffuse large B cell lymphoma now in remission; personality disorder; hypertension; tobacco abuse who presents emergency department with malaise x3 days. Associated with symptoms is fatigue; weakness; bowel and bladder incontinence; nausea; vomiting and diarrhea. No further patient was confused. History was taken from emergency department doctor; patient's son-in-law in person as well as daughter over the phone as at the time of examination patient had received Ativan and Geodon and was sedated. Ativan and Geodon was given to patient to make her comfortable for imaging. T-max at emergency department was 101 Fahrenheit. Patient had tachycardia. Reportedly in the past she used methamphetamine with last use about a year ago. Patient was at [facility] 3 days ago where work-up including CTA of chest; CT abdomen and pelvis; and chest x-ray was not revealing except that CT abdomen/pelvis showed cholelithiasis. Past Medical History Past Medical History (Chronic Problems): Chronic Problems (Last Reviewed 08/22/20 @ 02:[address] Latrell Underwood MD) Diabetes mellitus (Chronic) Hypertension (Chronic) Poor compliance with medication (Chronic) Amphetamine abuse, continuous (Chronic) Type 2 diabetes mellitus (Chronic) History of personality disorder (Chronic) Tobacco use disorder (Chronic) DLBCL (diffuse large B cell lymphoma) (Chronic) Medical History: Medical History (Last Reviewed 08/22/20 @ 02:[address] Latrell Underwood MD) History of personality disorder (Chronic) Z86.59 Tobacco use disorder (Chronic) F17.200 DLBCL (diffuse large B cell lymphoma) (Chronic) C83.30 Hyperactive (Inactive) F90.9 Hyperglycemia (Acute) R73.9 Diabetes E11.9 Neck mass R22.1 port placement COPD (chronic obstructive pulmonary disease) J44.9 HTN (hypertension) I10 Allergies acetaminophen [From Vicodin] Allergy (Severe, Verified 08/21/20 23:25) Swelling rash, hydrocodone bitartrate [From Vicodin] Allergy (Severe, Verified 08/21/20 23:25) Swelling rash Home Medications: Ambulatory Orders Medication Instructions Recorded Albuterol Inhaler [Ventolin Hfa] 1 - 2 puff INHALATION Q4H PRN PRN 03/22/13 #1 inhaler Insulin Aspart [Novolog Flexpen 12 units SUBCUT TIDCM #1 flexpen 02/06/15 ([facility])] Insulin Glargine,Hum.rec.anlog 60 unit SQ QHS #1 bottle 02/06/15 [Lantus] Lisinopril 5 mg PO DAILY 09/08/18 Ondansetron [Zofran] 8 mg PO Q8H PRN PRN #30 tab 12/19/18 Oxycodone HCl/Acetaminophen 1 tab PO Q4H PRN PRN 01/01/19 [Percocet 5/325] flash glucose scanning reader See Rx Instructions .ROUTE 01/08/19 .MEDSUPPLY #1 ea flash glucose sensor See Rx Instructions .ROUTE 01/08/19 .MEDSUPPLY #1 ea Surgical History: Surgical History (Last Reviewed 08/22/20 @ 02:[address] Latrell Underwood MD) History of section Z98.891 History of colonoscopy Z98.890 History of esophagogastroduodenoscopy (EGD) Z98.890 History of lymph node biopsy Z98.890 Status post myringotomy with insertion of tube Z96.22 Smoking Status: Current every day smoker Tobacco Use: Cigarettes - *Family History Maternal Family History: Family History (Last Reviewed 08/22/20 @ 02:[address] Latrell Underwood MD) Mother Brain cancer Father Throat cancer Review of Systems Unable to obtain accurate/complete ROS d/t: obtunded. ROS obtained from family history is as in HPI VTE Information - Inpt Only VTE Present on Admission: No VTE Mechan Device Prophylaxis: SCD's VTE Pharm Prophylaxis ordered?: No Patient Problems: Active and Suspected Problems (Last Reviewed 08/22/20 @ 02:[address] Latrell Underwood MD) Diarrhea (Acute) Severe sepsis (Acute) Cholecystitis (Acute) Hyperglycemia (Acute) - Physical Exam Vitals/I&O's: Vital Signs Temp Pulse Resp BP Pulse Ox 101.0 F H 104 H 33 H 100/57 L 99 08/22/20 00:57 08/22/20 00:57 08/22/20 00:57 08/22/20 00:57 08/22/20 00:57 Oxygen Flow Rate (L/min) 2 Oxygen Delivery Method Nasal Cannula Weight: 77.111 kg Body Mass Index (BMI) 26.6 Intake and Output for Last 24 Hours 08/20/20 08/21/20 08/22/20 23:59 23:59 23:59 Intake Total 915.75 / 915.75 Balance 915.75 / 915.75 General: - - Obtunded following Ativan and Geodon given at the emergency department. HEENT: Atraumatic, Normocephalic Neck: Supple, Trachea Midline Lungs: Clear to auscultation, Normal air movement Cardiovascular: Normal S1, Normal S2, No murmurs, Tachycardic Abdomen: Bowel Sounds Present, Soft, Non Tender Extremities: No edema, Capillary Refill Less than 3 Seconds Skin: No rashes, No breakdown Musculoskeletal: No Muscle Wasting Neurological: - - Obtunded following Ativan and Geodon administration the ED. Psych/Mental Status: - - Obtunded following Ativan and Geodon administration the ED. Microbiology Past 72 Hours 08/22/20 00:10 Mucosa - Nose SARS-CoV-2 Antigen (Rapid) - Final Laboratory Results 08/21/20 23:45: WBC 10.4, RBC 3.52 L, Hgb 10.1 L, Hct 30.5 L, MCV 86.6, MCH 28.7, MCHC 33.1, RDW Std Deviation 45.5 H, RDW Coeff of Devi 14.5, Plt Count 103 L, MPV 10.9, Immature Gran % (Auto) 1.300 H, Neut % (Auto) 95.4 H, Lymph % (Auto) 1.9 L, [place] % (Auto) 0.6, Eos % (Auto) 0.1, Baso % (Auto) 0.7, Absolute Neuts (auto) 10.0 H, Absolute Lymphs (auto) 0.20 L, Nucleated RBC % 0, Differential Comment SCANNED 08/21/20 23:45: Sodium 135 L, Potassium 3.9, Chloride 98, Carbon Dioxide 31.0, Anion Gap 6, BUN 13, Creatinine 0.78, Estim Creat Clear Calc 72.72, Est GFR (MDRD) Af Amer 97, Est GFR (MDRD) Non-Af 80, BUN/Creatinine Ratio 16.8, Glucose 386 H, Calcium 8.6, Total Bilirubin 1.10 H, AST 18, ALT 17, Alkaline Phosphatase 181 H, Total Protein 6.6, Albumin 2.5 L, Globulin 4.1, Albumin/Globulin Ratio 0.6 L, Lipase 36 L 08/21/20 23:45: Lactic Acid 3.5 H* 08/21/20 23:45: Urine Color Yellow, Urine Clarity Sl. Cloudy, Urine pH 5.0, Ur Specific [place] 1.015, Urine Protein 30 H, Urine Glucose (UA) 1000 H, Urine Ketones Negative, Urine Occult Blood 25 H, Urine Nitrite Negative, Urine Bilirubin Negative, Urine Urobilinogen 4 H, Ur Leukocyte Esterase Negative, Urine RBC 0-5 SEEN, Urine WBC 0-5 SEEN, Ur Squamous Epith Cells 0 SEEN, Urine Bacteria 0 SEEN, Urine Mucus 0 SEEN 08/21/20 23:45: Urine Opiates Screen NEGATIVE, Urine Methadone Screen NEGATIVE, Ur Barbiturates Screen NEGATIVE, Ur Phencyclidine Scrn NEGATIVE, Ur Amphetamines Screen NEGATIVE, U Methamphetamin-MDMA NEGATIVE, U Benzodiazepines Scrn NEGATIVE, Urine Cocaine Screen NEGATIVE, U Cannabinoids Screen NEGATIVE, Ur Drug Screen Comment Current Medications Sodium Chloride () 1,000 mls @ 999 mls/hr IV .Q1H1M RAHEEM Stop: 08/22/20 01:30 Last Admin: 08/22/20 00:54 Dose: 999 mls/hr Documented by: Vancomycin IV Pharmacy to Dose (1 ea/ Sodium Chloride) 500 mls @ 250 mls/hr IV X1 PRN; Protocol PRN Reason: Rx to Dose Vancomycin HCl 1,250 mg/ (Sodium Chloride) 275 mls @ 167 mls/hr IV X1 ONE Stop: 08/22/20 03:08 Assessment/Plan All Active Problems (Last Reviewed 08/22/20 @ 02:[address] Latrell Underwood MD) Diarrhea (Acute) Severe sepsis (Acute) Cholecystitis (Acute) Hyperglycemia (Acute) The patient is a 60 year old F with a significant history of COPD; diabetes mellitus; diffuse large B cell lymphoma now in remission; personality disorder; hypertension; tobacco abuse who presents emergency department with malaise x3 days; chills; anorexia; fatigue; weakness; bowel and bladder incontinence; nausea; vomiting and diarrhea; and found to have flatulence over Port-A-Cath tachycardia; fever; and abnormal gallbladder findings. Severe sepsis secondary to acute cholecystitis and infected of Port-A-Cath Patient met SIRS criteria with tachycardia; and a fever. Patient meets severe sepsis criteria with lactic acid of 3.5. Blood cultures obtained emergency department; follow Rapid Covid antigen was negative. Impression of chest x-ray by radiology: COPD without acute findings. Actual chest x-ray finding was independently interpreted and agree with images interpretation. Trend lactic acid Received normal saline bolus in the emergency department. Gentle normal saline at maintenance infusion rate ordered. General surgery for Port-A-Cath on patient at emergency department. Reportedly there was pus from skin covering Port-A-Cath. Port-A-Cath was pulled under conscious sedation. There was hypotension following a conscious sedation and fluid bolus was given at emergency department. Discussed case with general surgery. Per general surgery pus from Port-A-Cath; and Port-A-Cath to be cultured. Zofran ordered. Patient be kept n.p.o. and ultrasound of gallbladder ordered. General surgery consult; infectious disease consult; and director of strategy & mobile consult. Acute infectious encephalopathy Likely secondary to sepsis. Treat sepsis as above. Diabetes mellitus Patient with hyperglycemia on presentation Accu-Chek every 4 hours with correction insulin ordered. Tobacco abuse Counseled when appropriate DVT prophylaxis SCD ordered. No chemical thromboprophylaxis as patient is surgical candidate. Inpatient E&M: 83091 Init Hosp L3
[2020-08-22] MEDS: Lidocaine 1% /Epi 1:100 (20ml) 20 ML Vial 10 ML INFILT (01:37)
[2020-08-22] MEDS: Ketorolac 15 MG/ML Vial IV (01:38)
[2020-08-22] MEDS: Propofol 200 MG/20 ML Vial 50 MG IV BOLUS (01:43)
--- NOTE | 2020-08-22 02:03 | PCM.OPRPT ---
Report of Operation Date of Procedure: 08/22/20 Pre-Operative Diagnosis: Right chest infected internal jugular Port-A-Cath Post-Operative Diagnosis: Same Surgery/Procedure Performed:: Removal of right jugular Port-A-Cath Type of Anesthesia:: IV Sedation, Local Anesthesiologist: Grzegorz Springer - ER physician Special Medications: Patient received Zosyn IV and Vanco IV per ER Specimen's removed: Culture of purulent fluid, culture port Estimated Blood Loss (mL): Minimal Description of Procedure: Patient was placed supine on the ER cart timeout was completed verifying correct patient, procedure, site, positioning, special, prior to beginning procedure. Consent was signed. The right chest was prepped and draped in usual sterile fashion. Local anesthesia of 1% lidocaine with epi was used. The previous right port site was re-incised with a 15 blade scalpel--patient had about 15 cc of purulent material that was surrounding the port, which was expressed. Port easily came out with minimal dissection with iris scissors. The catheter was removed while pressure was being held on the right IJ site externally. Next the port was removed from the pocket. Culture was taken of purulent drainage as well as port was sent for culture. The port cavity was irrigated with saline. A wet-to-dry dressing was placed in the cavity and pressure dressing of gauze placed over the top. - Complications none
--- NOTE | 2020-08-22 02:06 | ED.RN ---
patients blood pressure noted to be low post sedation. Aylin Vaz made aware will watch patient just received medication for sedation
[2020-08-22 03:56] LABS: Reflex Lactate? Y
[2020-08-22 04:05] LABS: Lactic Acid 0.9 mmol/L (0.4-1.9)
--- NOTE | 2020-08-22 04:46 | PCM.RX.CS ---
Consult Pharmacy has been consulted to manage selected antiobiotic: Vancomycin Type of Consult: New start Suspected Infection: Sepsis Prior Doses of Antibiotics Received/Current Regimen: Medications Vancomycin HCl (Vancomycin) 1,000 mg in 200 mls @ 200 mls/hr IV Q12H RAHEEM Discontinued Medications Vancomycin HCl 1,250 mg/ (Sodium Chloride) 275 mls @ 167 mls/hr IV X1 ONE Stop: 08/22/20 03:08 Last Admin: 08/22/20 03:35 Dose: Infused Labs: Sodium 135 mmol/L (136-145) L 08/21/20 23:45 Potassium 3.9 mmol/L (3.5-5.1) 08/21/20 23:45 Chloride 98 mmol/L (98-107) 08/21/20 23:45 Carbon Dioxide 31.0 mmol/L (21.0-32.0) 08/21/20 23:45 Anion Gap 6 (5-15) 08/21/20 23:45 BUN 13 mg/dL (7-18) 08/21/20 23:45 Creatinine 0.78 mg/dL (0.55-1.02) 08/21/20 23:45 Est GFR (MDRD) Af Amer 97 mL/min (>60) 08/21/20 23:45 Est GFR (MDRD) Non-Af 80 mL/min (>60) 08/21/20 23:45 BUN/Creatinine Ratio 16.8 RATIO (10-20) 08/21/20 23:45 Glucose 386 mg/dL (74-106) H 08/21/20 23:45 Microbiology: Microbiology 08/22/20 01:53 Other - Randy Cath Gram Stain - Preliminary 08/22/20 01:53 Abs - Chest Gram Stain - Preliminary 08/22/20 00:10 Mucosa - Nose SARS-CoV-2 Antigen (Rapid) - Final Weight used for dosin.9 kg Estimated Creatinine Clearance: 73 Goal Trough: 15-20 mcg/mL Pharmacy Plan for Drug Dosing: Pharmacy Service will continue to monitor and adjust dosing as required. Follow-Up Labs: Trough Vancomycin Labs to be done on [date and time ordered]: 08/23/20 @1300
[2020-08-22] MEDS: 0.9% Normal Saline 1,000 ML 75 ML IV (04:55)
[2020-08-22] MEDS: Insulin Lispro 100 UNIT/ML INSULN.PEN SC ×4 (04:59→23:32)
[2020-08-22 05:26] LABS: Bedside Glucose 315 mg/dL (70-110)
[2020-08-22 05:28] LABS: Absolute Lymphocyte Count 0.47 X10^3/uL (0.83-4.51); Absolute Neutrophil Count 17.9 X10^3/uL (2.0-7.7); Basophil# 0.07 X10^3/uL; Basophil% 0.4 % (0-1); Hematocrit 24.3 % (37-47); Lymphocyte # 0.47 X10^3/ul (4.0); Lymphocyte % 2.4 % (19-41); Mean Corp Hgb Conc 32.9 g/dL (32-36); Mean Corpuscular Hgb 28.9 pg (27.0-32.0); Mean Corpuscular Volume 87.7 fL (81-99); Monocyte# 0.96 X10^3/uL; Monocyte% 4.9 % (0-10); NRBC Flagged by Analyzer 0 % (0-5); Neutrophil # 17.91 X10^3/uL (2.7-7.7); Neutrophil % 91.4 % (47-70); POSITIVE COUNT YES; POSITIVE DIFFERENTIAL YES; POSITIVE MORPHOLOGY YES; Platelet Count 90 K/mm3 (150-450); RBC Distribution Width CV 14.5 % (11.6-14.6); RBC Distribution Width SD 46.4 fl (35.1-43.9); Red Blood Count 2.77 M/mm3 (4.2-5.4); White Blood Count 19.6 K/mm3 (4.4-11.0)
[2020-08-22 05:41] LABS: Differential Indicated SCAN CRITERIA MET
[2020-08-22 05:44] LABS: Differential Comment SCANNED
[2020-08-22 05:45] LABS: Platelet Estimate SLT DEC (ADEQ)
[2020-08-22 05:48] LABS: ALB/GLOB Ratio 0.6 RATIO (0.9-2.4); AST(SGOT) 16 U/L (15-37); Alanine Aminotransfer ALT/SGPT 15 U/L (13-56); Albumin, Serum 1.9 g/dL (3.2-5.0); Alkaline Phosphatase 115 U/L (45-117); Anion Gap 7 (5-15); BUN 14 mg/dL (7-18); BUN/Creat Ratio 25.2 RATIO (10-20); Calcium,Total 7.1 mg/dL (8.5-10.1); Chloride 107 mmol/L (98-107); Creatinine, Serum 0.56 mg/dL (0.55-1.02); EST Glomerular Filtration Rate 118 mL/min (>60); Est Glom Filt Rate - Afr Amer 142 mL/min (>60); Estimated Creatinine Clearance 97.51 ml/min; Globulin 3.2 g/dL (2.2-4.2); Glucose 323 mg/dL (74-106); Potassium 3.3 mmol/L (3.5-5.1); Protein, Total 5.1 g/dL (6.4-8.2); Sodium Level 139 mmol/L (136-145)
--- NOTE | 2020-08-22 05:55 | US_ITS ---
STUDY: ABDOMINAL ULTRASOUND - RIGHT UPPER QUADRANT REASON FOR VISIT: Female, 60 years old ACute cholecystitis TECHNIQUE: Ultrasound evaluation of the right upper quadrant was performed with real-time and static little-scale imaging. TECHNICAL QUALITY: Adequate. COMPARISON: Comparison is made with prior CT scan done earlier today. FINDINGS: Liver: The liver is enlarged and measures 21.5 cm. There is increased echogenicity consistent with fatty infiltration. The bile ducts are within normal limits. There is hepatic color flow. The direction of portal flow is hepatopetal. There is no demonstrated mass lesion. Small amount of perihepatic fluid. Gallbladder: Normal distended gallbladder. The gallbladder wall is thickened and measures 3.5 mm. There is a negative sonographic Chappell''s sign. There is pericholecystic fluid. There are multiple echogenic structures within the gallbladder, consistent with multiple small gallstones. Common Bile Duct (C.B.D.): The common bile duct measures 5.5 mm. Pancreas: There is diffuse atrophy of the pancreas. There is normal echogenicity of the pancreas. There is no demonstrated pancreatic mass or cyst. Right Kidney: Normal size of the right kidney. The right kidney measures 13 cm x 6 cm x 4.8 cm. Normal renal cortex. The right cortex measures 1.4 cm. There is no demonstrated renal mass or cyst. There is no right hydronephrosis. US/Abdomen Limited IMPRESSION: Hepatomegaly and fatty infiltration of the liver. Small amount of perihepatic fluid. Multiple gallstones with thickened gallbladder wall and small amount of pericholecystic fluid. Findings in keeping with acute cholecystitis. Electronically Signed: Yariel Cool MD at 8:58 EST , Service support ,
--- NOTE | 2020-08-22 06:18 | RAD_ITS ---
STUDY: X-RAY CHEST REASON FOR EXAM: Female, 60 years old. Post removal of infected mediport -- TECHNIQUE: Single AP portable view of the chest. COMPARISON: Comparison is made with prior study 08/22/2020 at 12:01 AM. FINDINGS: EKG electrodes are seen. The right-sided kale catheter as been removed. I suspect a tiny right apical pneumothorax. Mild degree of increased markings in the right lung suggestive of a possible vascular congestion. Normal size heart. Normal mediastinum and jocy. Normal visualized pulmonary arteries. Normal visualized aortic arch and descending thoracic aorta. There are degenerative changes of the visualized thoracic spine. Normal visualized ribs, clavicles, and shoulders. There is no demonstrated abnormality of the visualized soft tissue structures of the upper abdomen. RAD/Chest 1 View (Portable) IMPRESSION: The portacatheter has been removed. I suspect a tiny right apical pneumothorax. Increased markings in the right lung suggests a mild degree of vascular congestion. Electronically Signed: Yariel Cool MD at 8:02 EST , Service support ,
[2020-08-22] MEDS: Haloperidol Lactate 5 MG/ML Vial 3 MG IV (06:40)
[2020-08-22] MEDS: Haloperidol Lactate 5 MG/ML Vial 2 MG IV (07:00)
--- NOTE | 2020-08-22 07:48 | CON.PCM_ITS ---
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 Diabetes mellitus complication status: with circulatory complication Diabetes mellitus complication detail: with peripheral angiopathy without gangrene Qualified Code(s): E11.51 - Type 2 diabetes mellitus with diabetic peripheral angiopathy without gangrene; Z79.4 - assisted (current) use of insulin (3) Hypertension Status: Chronic Qualifiers: Hypertension type: essential hypertension Qualified Code(s): I10 - Essential (primary) hypertension (4) Poor compliance with medication Status: Chronic (5) Amphetamine abuse, continuous Status: Chronic (6) Cholecystitis Status: Acute (7) Type 2 diabetes mellitus Status: Chronic (8) History of personality disorder Status: Chronic (9) Tobacco use disorder Status: Chronic (10) DLBCL (diffuse large B cell lymphoma) Status: Chronic Qualifiers: Lymphoma site: neck Qualified Code(s): C83.31 - Diffuse large B-cell lymphoma, lymph nodes of head, face, and neck Reason for Consult Date of Consultation: 08/22/20 Reason for Consultation: Septic shock History of Present Illness: The patient is a 60 year old F, with past medical history listed below, who presented to [facility] on 08/21/2020 with multiple complaints. Patient reportedly had not felt well for the last 3 days. Patient apparently also had a fall and had struck her ribs. Patient states that since that time she had had some loose watery diarrhea and had a difficult time making it to the bathroom. Patient had a subjective fever, but denied any chills. Patient did have some abdominal cramping. In the ER, patient was tachycardic at 113 bpm and hypertensive at 147/69. Patient had a pulse ox of 95%. The ER physician noted patient's port site is erythematous with some central fluctuance, but no striations. A chest x-ray showed no acute infiltrates, but his CT of the abdomen was suggestive of possible cholecystitis. Laboratory work-up showed a leukocytosis of 10.4 with a hemoglobin of 10.1. Chemistry showed an elevated bicarbonate of 31, lactate of 3.5 and relatively normal liver function. Urinalysis and tox screen were unremarkable. Patient started to become agitated and was given 1 mg of Ativan and 10 mg of Geodon. There was some concern for infected Mediport, so surgery evaluated the patient in the ER. Personally discussed with the surgeon and she noted significant pus upon entering the area to remove the port. This was sent for culture. The patient was then transferred to the intensive care unit for further evaluation. Since being in the intensive care unit, patient has remained confused. Patient has been hypotensive and had to be started on peripheral Levophed. Patient is unable to provide any additional information at this time. No review of systems was obtained. Past Medical History Past Medical History (Chronic Problems): Chronic Problems (Last Reviewed 08/22/20 @ 02:[address] Latrell Underwood MD) Diabetes mellitus (Chronic) Hypertension (Chronic) Poor compliance with medication (Chronic) Amphetamine abuse, continuous (Chronic) Type 2 diabetes mellitus (Chronic) History of personality disorder (Chronic) Tobacco use disorder (Chronic) DLBCL (diffuse large B cell lymphoma) (Chronic) Medical History: Medical History (Last Reviewed 08/22/20 @ 02:[address] Latrell Underwood MD) History of personality disorder (Chronic) Z86.59 Tobacco use disorder (Chronic) F17.200 DLBCL (diffuse large B cell lymphoma) (Chronic) C83.30 Hyperactive (Inactive) F90.9 Hyperglycemia (Acute) R73.9 Diabetes E11.9 Neck mass R22.1 port placement COPD (chronic obstructive pulmonary disease) J44.9 HTN (hypertension) I10 Allergies acetaminophen [From Vicodin] Allergy (Severe, Verified 08/21/20 23:25) Swelling rash, hydrocodone bitartrate [From Vicodin] Allergy (Severe, Verified 08/21/20 23:25) Swelling rash Home Medications: Ambulatory Orders Medication Instructions Recorded Albuterol Inhaler [Ventolin Hfa] 1 - 2 puff INHALATION Q4H PRN PRN 03/22/13 #1 inhaler Insulin Aspart [Novolog Flexpen 12 units SUBCUT TIDCM #1 flexpen 02/06/15 ([facility])] Insulin Glargine,Hum.rec.anlog 60 unit SQ QHS #1 bottle 02/06/15 [Lantus] Lisinopril 5 mg PO DAILY 09/08/18 Ondansetron [Zofran] 8 mg PO Q8H PRN PRN #30 tab 12/19/18 Oxycodone HCl/Acetaminophen 1 tab PO Q4H PRN PRN 01/01/19 [Percocet 5/325] flash glucose scanning reader See Rx Instructions .ROUTE 01/08/19 .MEDSUPPLY #1 ea flash glucose sensor See Rx Instructions .ROUTE 01/08/19 .MEDSUPPLY #1 ea Surgical History: Surgical History (Last Reviewed 08/22/20 @ 02:[address] Latrell Underwood MD) History of section Z98.891 History of colonoscopy Z98.890 History of esophagogastroduodenoscopy (EGD) Z98.890 History of lymph node biopsy Z98.890 Status post myringotomy with insertion of tube Z96.22 Surgical History: noncontributory Smoking Status: Current every day smoker Tobacco Use: Cigarettes - *Family History Maternal Family History: Family History (Last Reviewed 08/22/20 @ 02:[address] Latrell Underwood MD) Mother Brain cancer Father Throat cancer Review of Systems Unable to obtain accurate/complete ROS d/t: See HPI Patient Problems: Active and Suspected Problems (Last Reviewed 08/22/20 @ 02:[address] Latrell Underwood MD) Diarrhea (Acute) Severe sepsis (Acute) Cholecystitis (Acute) Hyperglycemia (Acute) Objective: All imaging was personally reviewed. Agree with chest x-ray. Patient did have a PFT completed in October 2018 showing a partially reversible moderately severe large airways obstructive ventilatory defect with preserved diffusion capacity (FVC 70%, FEV1 59%, TLC 110%, DLCO 107%). Patient also had an echocardiogram at that time showing an EF of 65% with normal right-sided ventricular pressures and no significant valvular abnormalities - Physical Exam Vitals/I&O's: Vital Signs Temp Pulse Resp BP Pulse Ox 36.7 C 73 21 H 99/68 97 08/22/20 04:30 08/22/20 06:15 08/22/20 06:15 08/22/20 06:15 08/22/20 06:15 Oxygen Flow Rate (L/min) [4] 2 Oxygen Flow Rate (L/min) [3] 4 Oxygen Flow Rate (L/min) [2] 4 Oxygen Flow Rate (L/min) [1 ( 2 Initial Baseline)] Oxygen Flow Rate (L/min) 2 Oxygen Delivery Method [4] Nasal Cannula Oxygen Delivery Method [3] Nasal Cannula Oxygen Delivery Method [2] Nasal Cannula Oxygen Delivery Method [1 ( Room Air Initial Baseline)] Oxygen Delivery Method Nasal Cannula Weight: 68.9 kg Body Mass Index (BMI) 23.8 Intake and Output for Last 24 Hours 08/20/20 08/21/20 08/22/20 23:59 23:59 23:59 Intake Total 4800.93 / 4800.93 Balance 4800.93 / 4800.93 General: Confused, Disoriented, Non-Cooperative HEENT: Atraumatic, PERRLA, EOMI, Normocephalic, - - Scleral injection without icterus Oral: No Gingival or Mucosal Lesions/ Ulcerations, Dry Mucosa, - - Mallampati 2 Neck: Supple, No JVD, No Nodes, Trachea Midline Lungs: No rhonchi, No wheeze, No rales, Diminished Cardiovascular: Normal S1, Normal S2, No murmurs, No rub noted, No Gallop, Tachycardic Abdomen: Bowel Sounds Present, Soft, Non Tender, Non-Distended Extremities: No cyanosis, No edema, Capillary Refill Less than 3 Seconds, Clubbing Skin: - - Dressing from port not removed. Musculoskeletal: Tenderness - Palpation in area of port Lymphatic: No Cervical, Supraclavicular, or Inguinal Adenopathy Neurological: Cranial nerves II-XII grossly intact, Neuro grossly intact, Motor Exam 5/5 strength throughout, - - Not cooperative with exam. Spontaneous movement of all extremities. Sensation is intact. Psych/Mental Status: Impulsive, Restless Microbiology Past 72 Hours 08/22/20 01:53 Other - Randy Cath Gram Stain - Preliminary 08/22/20 01:53 Abs - Chest Gram Stain - Preliminary 08/22/20 00:10 Mucosa - Nose SARS-CoV-2 Antigen (Rapid) - Final Laboratory Results 08/21/20 23:45: WBC 10.4, RBC 3.52 L, Hgb 10.1 L, Hct 30.5 L, MCV 86.6, MCH 28.7, MCHC 33.1, RDW Std Deviation 45.5 H, RDW Coeff of Devi 14.5, Plt Count 103 L, MPV 10.9, Immature Gran % (Auto) 1.300 H, Neut % (Auto) 95.4 H, Lymph % (Auto) 1.9 L, [place] % (Auto) 0.6, Eos % (Auto) 0.1, Baso % (Auto) 0.7, Absolute Neuts (auto) 10.0 H, Absolute Lymphs (auto) 0.20 L, Nucleated RBC % 0, Differential Comment SCANNED 08/21/20 23:45: Sodium 135 L, Potassium 3.9, Chloride 98, Carbon Dioxide 31.0, Anion Gap 6, BUN 13, Creatinine 0.78, Estim Creat Clear Calc 72.72, Est GFR (MDRD) Af Amer 97, Est GFR (MDRD) Non-Af 80, BUN/Creatinine Ratio 16.8, Glucose 386 H, Calcium 8.6, Total Bilirubin 1.10 H, AST 18, ALT 17, Alkaline Phosphatase 181 H, Total Protein 6.6, Albumin 2.5 L, Globulin 4.1, Albumin/Globulin Ratio 0.6 L, Lipase 36 L 08/21/20 23:45: Lactic Acid 3.5 H* 08/21/20 23:45: Urine Color Yellow, Urine Clarity Sl. Cloudy, Urine pH 5.0, Ur Specific [place] 1.015, Urine Protein 30 H, Urine Glucose (UA) 1000 H, Urine Ketones Negative, Urine Occult Blood 25 H, Urine Nitrite Negative, Urine Bilirubin Negative, Urine Urobilinogen 4 H, Ur Leukocyte Esterase Negative, Urine RBC 0-5 SEEN, Urine WBC 0-5 SEEN, Ur Squamous Epith Cells 0 SEEN, Urine Bacteria 0 SEEN, Urine Mucus 0 SEEN 08/21/20 23:45: Urine Opiates Screen NEGATIVE, Urine Methadone Screen NEGATIVE, Ur Barbiturates Screen NEGATIVE, Ur Phencyclidine Scrn NEGATIVE, Ur Amphetamines Screen NEGATIVE, U Methamphetamin-MDMA NEGATIVE, U Benzodiazepines Scrn NEGA TIVE, Urine Cocaine Screen NEGATIVE, U Cannabinoids Screen NEGATIVE, Ur Drug Screen Comment 08/22/20 03:40: Lactic Acid 0.9 08/22/20 04:56: POC Glucose 315 H 08/22/20 05:15: WBC 19.6 H, RBC 2.77 L, Hgb 8.0 L, Hct 24.3 L, MCV 87.7, MCH 28.9, MCHC 32.9, RDW Std Deviation 46.4 H, RDW Coeff of Devi 14.5, Plt Count 90 L , MPV 11.0, Immature Gran % (Auto) 0.900, Neut % (Auto) 91.4 H, Lymph % (Auto) 2.4 L, [place] % (Auto) 4.9, Eos % (Auto) 0.0, Baso % (Auto) 0.4, Absolute Neuts (auto) 17.9 H, Absolute Lymphs (auto) 0.47 L, Nucleated RBC % 0, Differential Comment SCANNED, Platelet Estimate SLT 08/22/20 05:15: Sodium 139, Potassium 3.3 L, Chloride 107, Carbon Dioxide 25.0, Anion Gap 7, BUN 14, Creatinine 0.56, Estim Creat Clear Calc 97.51, Est GFR (MDRD) Af Amer 142, Est GFR (MDRD) Non-Af 118, BUN/Creatinine Ratio 25.2 H, Glucose 323 H, Calcium 7.1 L, Total Bilirubin 0.70, AST 16, ALT 15, Alkaline Phosphatase 115, Total Protein 5.1 L, Albumin 1.9 L, Globulin 3.2, Albumin/Globulin Ratio 0.6 L Current Medications Dextrose (Dextrose 50%-Water 25 Gm/50 Ml Disp.Syrin) 0 gm IV X1 PRN; Protocol PRN Reason: Hypoglycemia Glucagon (Glucagon 1 Mg/Ml Syringe) 1 mg IM .X1 PRN PRN Reason: Hypoglycemia Sodium Chloride () 1,000 mls @ 75 mls/hr IV .[id number] [facility] Last Admin: 08/22/20 04:55 Dose: 75 mls/hr Documented by: Vancomycin IV Pharmacy to Dose (1 ea/ Sodium Chloride) 500 mls @ 250 mls/hr IV PRN PRN; Protocol PRN Reason: Rx to Dose Piperacillin Sod/Tazobactam (Sod 3.375 gm/ Sodium Chloride) 50 mls @ 12.5 mls/hr IV Q8 [facility] Last Admin: 08/22/20 05:20 Dose: 12.5 mls/hr Documented by: Sodium Chloride () 250 mls @ 15 mls/hr IV .[id number] PRN PRN Reason: Saline Flush Vancomycin HCl (Vancomycin) 1,000 mg in 200 mls @ 200 mls/hr IV Q12H [facility] Norepinephrine Bitartrate 8 mg (/ Sodium Chloride) 250 mls @ 9.375 mls/hr CONT INF .[id number] [facility]; Protocol Last Titration: 08/22/20 06:15 Dose: 5 mcg/min, 9.4 mls/hr Documented by: Insulin Human Lispro (Insulin Lispro 100 Unit/Ml Insuln.Pen) 0 unit SC Q4 [facility]; Protocol Last Admin: 08/22/20 04:59 Dose: 5 u Documented by: Ondansetron HCl (Ondansetron 4 Mg/2 Ml Vial) 4 mg IV Q8H PRN PRN PRN Reason: NAUSEA/VOMITING Sodium Chloride (0.9% Saline Lock 10 Ml Syringe) 10 - 40 ml IV UD PRN PRN Reason: SALINE FLUSH Clinical Impression(s) from Imaging Studies Chest X-Ray 08/22/20 00:00 IMPRESSION: COPD without acute findings Electronically Signed: Jim Meier DO at 0:22 EST Tel , Service support , Chest X-Ray 08/22/20 06:18 IMPRESSION: The portacatheter has been removed. I suspect a tiny right apical pneumothorax. Increased markings in the right lung suggests a mild degree of vascular congestion. Electronically Signed: Yariel Cool MD at 8:02 EST , Service support , Brain CT 08/22/20 23:30 IMPRESSION: Chronic involutional changes of the brain. Electronically Signed: Jim Meier DO at 0:53 EST Tel , Service support , Abdomen/Pelvis CT 08/22/20 23:31 IMPRESSION: 1. Gallstones with prominent pericholecystic fluid and gallbladder wall thickening as well as dilated common bile duct. Findings are concerning for acute cholecystitis 2. No evidence to suggest colitis or acute diverticulitis 3. Lung bases are clear Electronically Signed: Jim Meier DO at 0:55 EST Tel , Service support , Assessment/Plan Active and Suspected Problems (Last Reviewed 08/22/20 @ 02:[address] Latrell Underwood MD) Diarrhea (Acute) Severe sepsis (Acute) Cholecystitis (Acute) Hyperglycemia (Acute) RECOMMENDATIONS: 1. Continue n.p.o. status given mental status and possible surgical intervention 2. Continue Levophed through a peripheral line 3. Aggressive antibiotic regimen pending culture results 4. Delirium protocol 5. Cover with sliding scale insulin 6. As needed bronchodilators if necessary IMPRESSIONS: 1. Septic shock secondary to infected port Port was present on presentation with noted purulent material. Port has subsequently been removed, but blood cultures are already showing gram-positive cocci. Patient will be at high risk for endocarditis and embolic phenomenon at this time. Patient is currently taking Levophed through a peripheral line. We will continue with peripheral line as long as possible to allow for possible clearance of bacteremia prior to basement of invasive device. Patient is very confused at this time, so concerns that she would remove any Mallory tube that would be placed. We will monitor with physical exam and continue with empiric antibiotics. 2. Metabolic versus toxic encephalopathy Patient reportedly has had issues with amphetamines in the past. Patient also has significant septic shock at this time. Patient will be given Haldol as necessary to avoid complications associated with pulling out supportive devices. Continue with delirium protocol. 3. Diabetes mellitus type 2 uncontrolled Clinical suspicion for high endogenous steroid release secondary to problem #1. Will cover with sliding scale insulin. Patient will likely not be able to tolerate p.o. at this time. Hypokalemia likely secondary to resolution of acidosis more than acute losses. This can be supplemented. 4. Poor history/poor follow-up/tobacco abuse/COPD Complicates care, management, recovery and prognosis. Patient is reportedly a full code. We will continue to monitor closely. SCDs have been added for DVT prophylaxis as patient does have a high risk of need for invasive procedures. Can use as needed bronchodilators if necessary. Patient with significant obstruction on previous PFT. Anticipate this is worse given continued tobacco abuse. TIME: 40 minutes critical care time spent addressing patient's septic shock, encephalopathy, diabetes mellitus, COPD, review of all data and collaboration with care team (6 AM to 8 AM) [phone]: [phone] Critical care first hour
--- NOTE | 2020-08-22 08:20 | PN.SURG_ITS ---
Patient Problems: Active and Suspected Problems (Last Reviewed 08/22/20 @ 02:[address] Latrell Underwood MD) Diarrhea (Acute) Severe sepsis (Acute) Cholecystitis (Acute) Hyperglycemia (Acute) Subjective: Pt is on levo at 5 mcg, does not follow commands- was given haldol due to agitation, - Physical Exam Vitals/I&O's: Vital Signs Temp Pulse Resp BP Pulse Ox 98.1 F 73 21 H 99/68 95 08/22/20 04:30 08/22/20 06:15 08/22/20 06:15 08/22/20 06:15 08/22/20 08:11 Oxygen Flow Rate (L/min) [4] 2 Oxygen Flow Rate (L/min) [3] 4 Oxygen Flow Rate (L/min) [2] 4 Oxygen Flow Rate (L/min) [1 ( 2 Initial Baseline)] Oxygen Flow Rate (L/min) 2 Oxygen Delivery Method [4] Nasal Cannula Oxygen Delivery Method [3] Nasal Cannula Oxygen Delivery Method [2] Nasal Cannula Oxygen Delivery Method [1 ( Room Air Initial Baseline)] Oxygen Delivery Method Nasal Cannula Weight: 151 lb 14.376 oz Body Mass Index (BMI) 23.8 Intake and Output for Last 24 Hours 08/20/20 08/21/20 08/22/20 23:59 23:59 23:59 Intake Total 4800.93 / 4800.93 Balance 4800.93 / 4800.93 General: Lethargic, - - pt doesn't follow command and barely opens eyes to name Abdomen: Soft, Non Tender, Non-Distended Skin: - - right chest port site--packing removed- no erythema Microbiology Past 72 Hours 08/22/20 01:53 Other - Randy Cath Gram Stain - Preliminary 08/22/20 01:53 Abs - Chest Gram Stain - Preliminary 08/22/20 00:10 Mucosa - Nose SARS-CoV-2 Antigen (Rapid) - Final Laboratory Results 08/21/20 23:45: WBC 10.4, RBC 3.52 L, Hgb 10.1 L, Hct 30.5 L, MCV 86.6, MCH 28.7, MCHC 33.1, RDW Std Deviation 45.5 H, RDW Coeff of Devi 14.5, Plt Count 103 L, MPV 10.9, Immature Gran % (Auto) 1.300 H, Neut % (Auto) 95.4 H, Lymph % (Auto) 1.9 L, [place] % (Auto) 0.6, Eos % (Auto) 0.1, Baso % (Auto) 0.7, Absolute Neuts (auto) 10.0 H, Absolute Lymphs (auto) 0.20 L, Nucleated RBC % 0, Differential Comment SCANNED 08/21/20 23:45: Sodium 135 L, Potassium 3.9, Chloride 98, Carbon Dioxide 31.0, Anion Gap 6, BUN 13, Creatinine 0.78, Estim Creat Clear Calc 72.72, Est GFR (MDRD) Af Amer 97, Est GFR (MDRD) Non-Af 80, BUN/Creatinine Ratio 16.8, Glucose 386 H, Calcium 8.6, Total Bilirubin 1.10 H, AST 18, ALT 17, Alkaline Phosphatase 181 H, Total Protein 6.6, Albumin 2.5 L, Globulin 4.1, Albumin/Globulin Ratio 0.6 L, Lipase 36 L 08/21/20 23:45: Lactic Acid 3.5 H* 08/21/20 23:45: Urine Color Yellow, Urine Clarity Sl. Cloudy, Urine pH 5.0, Ur Specific [place] 1.015, Urine Protein 30 H, Urine Glucose (UA) 1000 H, Urine Ketones Negative, Urine Occult Blood 25 H, Urine Nitrite Negative, Urine Bilirubin Negative, Urine Urobilinogen 4 H, Ur Leukocyte Esterase Negative, Urine RBC 0-5 SEEN, Urine WBC 0-5 SEEN, Ur Squamous Epith Cells 0 SEEN, Urine Bacteria 0 SEEN, Urine Mucus 0 SEEN 08/21/20 23:45: Urine Opiates Screen NEGATIVE, Urine Methadone Screen NEGATIVE, Ur Barbiturates Screen NEGATIVE, Ur Phencyclidine Scrn NEGATIVE, Ur Amphetamines Screen NEGATIVE, U Methamphetamin-MDMA NEGATIVE, U Benzodiazepines Scrn NEGATIVE, Urine Cocaine Screen NEGATIVE, U Cannabinoids Screen NEGATIVE, Ur Drug Screen Comment 08/22/20 03:40: Lactic Acid 0.9 08/22/20 04:56: POC Glucose 315 H 08/22/20 05:15: WBC 19.6 H, RBC 2.77 L, Hgb 8.0 L, Hct 24.3 L, MCV 87.7, MCH 28.9, MCHC 32.9, RDW Std Deviation 46.4 H, RDW Coeff of Devi 14.5, Plt Count 90 L , MPV 11.0, Immature Gran % (Auto) 0.900, Neut % (Auto) 91.4 H, Lymph % (Auto) 2.4 L, [place] % (Auto) 4.9, Eos % (Auto) 0.0, Baso % (Auto) 0.4, Absolute Neuts (auto) 17.9 H, Absolute Lymphs (auto) 0.47 L, Nucleated RBC % 0, Differential Comment SCANNED, Platelet Estimate SLT 08/22/20 05:15: Sodium 139, Potassium 3.3 L, Chloride 107, Carbon Dioxide 25.0, Anion Gap 7, BUN 14, Creatinine 0.56, Estim Creat Clear Calc 97.51, Est GFR (MDRD) Af Amer 142, Est GFR (MDRD) Non-Af 118, BUN/Creatinine Ratio 25.2 H, Glucose 323 H, Calcium 7.1 L, Total Bilirubin 0.70, AST 16, ALT 15, Alkaline Phosphatase 115, Total Protein 5.1 L, Albumin 1.9 L, Globulin 3.2, Albumin/Globulin Ratio 0.6 L Current Medications Dextrose (Dextrose 50%-Water 25 Gm/50 Ml Disp.Syrin) 0 gm IV X1 PRN; Protocol PRN Reason: Hypoglycemia Glucagon (Glucagon 1 Mg/Ml Syringe) 1 mg IM .X1 PRN PRN Reason: Hypoglycemia Sodium Chloride () 1,000 mls @ 75 mls/hr IV .[id number] [facility] Last Admin: 08/22/20 04:55 Dose: 75 mls/hr Documented by: Vancomycin IV Pharmacy to Dose (1 ea/ Sodium Chloride) 500 mls @ 250 mls/hr IV PRN PRN; Protocol PRN Reason: Rx to Dose Piperacillin Sod/Tazobactam (Sod 3.375 gm/ Sodium Chloride) 50 mls @ 12.5 mls/hr IV Q8 [facility] Last Admin: 08/22/20 05:20 Dose: 12.5 mls/hr Documented by: Sodium Chloride () 250 mls @ 15 mls/hr IV .[id number] PRN PRN Reason: Saline Flush Vancomycin HCl (Vancomycin) 1,000 mg in 200 mls @ 200 mls/hr IV Q12H [facility] Norepinephrine Bitartrate 8 mg (/ Sodium Chloride) 250 mls @ 9.375 mls/hr CONT INF .[id number] [facility]; Protocol Last Titration: 08/22/20 06:15 Dose: 5 mcg/min, 9.4 mls/hr Documented by: Insulin Human Lispro (Insulin Lispro 100 Unit/Ml Insuln.Pen) 0 unit SC Q4 [facility]; Protocol Last Admin: 08/22/20 04:59 Dose: 5 u Documented by: Ondansetron HCl (Ondansetron 4 Mg/2 Ml Vial) 4 mg IV Q8H PRN PRN PRN Reason: NAUSEA/VOMITING Sodium Chloride (0.9% Saline Lock 10 Ml Syringe) 10 - 40 ml IV UD PRN PRN Reason: SALINE FLUSH Medical Necessity - Tobacco Use Smoking Status: Current every day smoker Tobacco Use: Cigarettes Assessment/Plan All Active Problems (Last Reviewed 08/22/20 @ 02:[address] Latrell Underwood MD) Septic shock (Acute) Diarrhea (Acute) Severe sepsis (Acute) Cholecystitis (Acute) Hyperglycemia (Acute) 60-year-old female-infected right IJ Port-A-Cath, cholecystitis, sepsis 1. packing removed from port site--keep covered with gauze change daily--bld cx pending & cx from port growing G+cocci in chains. 2. Cholelithiasis/pericholecystic fluid likely acute cholecystitis--US pending--however, due to pt currently mental status/sepsis--is not a candidate currently for surgery or cholecystostomy tube (has she would very likely pull it out). Will continue IV abx. 3. Continue on Zosyn/Vanco IV. Dr. Mendez will be covering this weekend Julia Mendez M.D. Pager: [phone] [facility] [address] [place] [address], Outpatient Pavilion, [address] [place] [address] Office: [phone] Inpatient E&M: [id number] [facility] [address]
[2020-08-22 12:16] LABS: Bedside Glucose 253 mg/dL (70-110)
--- NOTE | 2020-08-22 14:25 | PCM.HP.ID ---
Problem List (1) Bacteremia Status: Acute Reason for Consult: bacteremia Consulted by: Dr. Torres History of Present Illness: The patient is a 60 year old F with h/o meth use and DLBCL in remission, presented late on 08/21 to ED with several days lethargy, abd cramping, diarrhea, chills. Pt denies any issues with R chest port, denies abd pain. Came to ED, CT with concern for cholecystitis, port with purulence. Had port removed, started on vanc/zosyn, admitted to icu on pressors. Feeling better today. Full ROS performed and neg except as noted above. - Medical History Past Medical History (Chronic Problems): Chronic Problems (Last Updated 08/22/20 @ 13:[address] 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) Type 2 diabetes mellitus (Chronic) History of personality disorder (Chronic) Tobacco use disorder (Chronic) DLBCL (diffuse large B cell lymphoma) (Chronic) Allergies/Adverse Reactions: Allergies acetaminophen [From Vicodin] Allergy (Severe, Verified 08/21/20 23:25) Swelling rash, hydrocodone bitartrate [From Vicodin] Allergy (Severe, Verified 08/21/20 23:25) Swelling rash Home Medications: Ambulatory Orders Medication Instructions Recorded Albuterol Inhaler [Ventolin Hfa] 1 - 2 puff INHALATION Q4H PRN PRN 03/22/13 #1 inhaler Insulin Aspart [Novolog Flexpen 12 units SUBCUT TIDCM #1 flexpen 02/06/15 ([facility])] Insulin Glargine,Hum.rec.anlog 60 unit SQ QHS #1 bottle 02/06/15 [Lantus] Lisinopril 5 mg PO DAILY 09/08/18 Ondansetron [Zofran] 8 mg PO Q8H PRN PRN #30 tab 12/19/18 Oxycodone HCl/Acetaminophen 1 tab PO Q4H PRN PRN 01/01/19 [Percocet 5/325] flash glucose scanning reader See Rx Instructions .ROUTE 01/08/19 .MEDSUPPLY #1 ea flash glucose sensor See Rx Instructions .ROUTE 01/08/19 .MEDSUPPLY #1 ea - Social History Tobacco Use: cigarettes Vital Signs Temp Pulse Resp BP Pulse Ox 98.1 F 68 22 H 108/72 99 08/22/20 12:00 08/22/20 12:15 08/22/20 12:00 08/22/20 12:45 08/22/20 12:00 Oxygen Flow Rate (L/min) [4] 2 Oxygen Flow Rate (L/min) [3] 4 Oxygen Flow Rate (L/min) [2] 4 Oxygen Flow Rate (L/min) [1 ( 2 Initial Baseline)] Oxygen Flow Rate (L/min) 2 Oxygen Delivery Method [4] Nasal Cannula Oxygen Delivery Method [3] Nasal Cannula Oxygen Delivery Method [2] Nasal Cannula Oxygen Delivery Method [1 ( Room Air Initial Baseline)] Oxygen Delivery Method Nasal Cannula Weight: 68.9 kg Body Mass Index (BMI) 23.8 Microbiology Past 72 Hours 08/22/20 01:53 Gram Stain - Final Other - Randy Cath 08/22/20 01:53 Gram Stain - Final Abs - Chest 08/21/20 23:45 Bacteria Detection (PCR) - Final Blood Culture (Wb) - Anticubital Left Streptococcus agalactiae (B) Blood Culture - Preliminary 08/22/20 00:45 Blood Culture - Preliminary Blood Culture (Wb) - Right Hand 08/22/20 00:10 SARS-CoV-2 Antigen (Rapid) - Final Mucosa - Nose Laboratory Tests Past 24 Hrs 08/21/20 08/21/20 08/21/20 23:45 23:45 23:45 WBC 10.4 RBC 3.52 L Hgb 10.1 L Hct 30.5 L MCV 86.6 MCH 28.7 MCHC 33.1 RDW Std Deviation 45.5 H RDW Coeff of Devi 14.5 Plt Count 103 L MPV 10.9 Immature Gran % (Auto) 1.300 H Neut % (Auto) 95.4 H Lymph % (Auto) 1.9 L [place] % (Auto) 0.6 Eos % (Auto) 0.1 Baso % (Auto) 0.7 Absolute Neuts (auto) 10.0 H Absolute Lymphs (auto) 0.20 L Nucleated RBC % 0 Differential Comment SCANNED Platelet Estimate Sodium 135 L Potassium 3.9 Chloride 98 Carbon Dioxide 31.0 Anion Gap 6 BUN 13 Creatinine 0.78 Estim Creat Clear Calc 72.72 Est GFR (MDRD) Af Amer 97 Est GFR (MDRD) Non-Af 80 BUN/Creatinine Ratio 16.8 Glucose 386 H Lactic Acid 3.5 H* Calcium 8.6 Total Bilirubin 1.10 H AST 18 ALT 17 Alkaline Phosphatase 181 H Total Protein 6.6 Albumin 2.5 L Globulin 4.1 Albumin/Globulin Ratio 0.6 L Lipase 36 L Urine Color Urine Clarity Urine pH Ur Specific [place] Urine Protein Urine Glucose (UA) Urine Ketones Urine Occult Blood Urine Nitrite Urine Bilirubin Urine Urobilinogen Ur Leukocyte Esterase Urine RBC Urine WBC Ur Squamous Epith Cells Urine Bacteria Urine Mucus Urine Opiates Screen Urine Methadone Screen Ur Barbiturates Screen Ur Phencyclidine Scrn Ur Amphetamines Screen U Methamphetamin-MDMA U Benzodiazepines Scrn Urine Cocaine Screen U Cannabinoids Screen Ur Drug Screen Comment 08/21/20 08/21/20 08/22/20 23:45 23:45 03:40 WBC RBC Hgb Hct MCV MCH MCHC RDW Std Deviation RDW Coeff of Devi Plt Count MPV Immature Gran % (Auto) Neut % (Auto) Lymph % (Auto) [place] % (Auto) Eos % (Auto) Baso % (Auto) Absolute Neuts (auto) Absolute Lymphs (auto) Nucleated RBC % Differential Comment Platelet Estimate Sodium Potassium Chloride Carbon Dioxide Anion Gap BUN Creatinine Estim Creat Clear Calc Est GFR (MDRD) Af Amer Est GFR (MDRD) Non-Af BUN/Creatinine Ratio Glucose Lactic Acid 0.9 Calcium Total Bilirubin AST ALT Alkaline Phosphatase Total Protein Albumin Globulin Albumin/Globulin Ratio Lipase Urine Color Yellow Urine Clarity Sl. Cloudy Urine pH 5.0 Ur Specific [place] 1.015 Urine Protein 30 H Urine Glucose (UA) 1000 H Urine Ketones Negative Urine Occult Blood 25 H Urine Nitrite Negative Urine Bilirubin Negative Urine Urobilinogen 4 H Ur Leukocyte Esterase Negative Urine RBC 0-5 SEEN Urine WBC 0-5 SEEN Ur Squamous Epith Cells 0 SEEN Urine Bacteria 0 SEEN Urine Mucus 0 SEEN Urine Opiates Screen NEGATIVE Urine Methadone Screen NEGATIVE Ur Barbiturates Screen NEGATIVE Ur Phencyclidine Scrn NEGATIVE Ur Amphetamines Screen NEGATIVE U Methamphetamin-MDMA NEGATIVE U Benzodiazepines Scrn NEGATIVE Urine Cocaine Screen NEGATIVE U Cannabinoids Screen NEGATIVE Ur Drug Screen Comment 08/22/20 08/22/20 05:15 05:15 WBC 19.6 H RBC 2.77 L Hgb 8.0 L Hct 24.3 L MCV 87.7 MCH 28.9 MCHC 32.9 RDW Std Deviation 46.4 H RDW Coeff of Devi 14.5 Plt Count 90 L MPV 11.0 Immature Gran % (Auto) 0.900 Neut % (Auto) 91.4 H Lymph % (Auto) 2.4 L [place] % (Auto) 4.9 Eos % (Auto) 0.0 Baso % (Auto) 0.4 Absolute Neuts (auto) 17.9 H Absolute Lymphs (auto) 0.47 L Nucleated RBC % 0 Differential Comment SCANNED Platelet Estimate SLT DEC Sodium 139 Potassium 3.3 L Chloride 107 Carbon Dioxide 25.0 Anion Gap 7 BUN 14 Creatinine 0.56 Estim Creat Clear Calc 97.51 Est GFR (MDRD) Af Amer 142 Est GFR (MDRD) Non-Af 118 BUN/Creatinine Ratio 25.2 H Glucose 323 H Lactic Acid Calcium 7.1 L Total Bilirubin 0.70 AST 16 ALT 15 Alkaline Phosphatase 115 Total Protein 5.1 L Albumin 1.9 L Globulin 3.2 Albumin/Globulin Ratio 0.6 L Lipase Urine Color Urine Clarity Urine pH Ur Specific [place] Urine Protein Urine Glucose (UA) Urine Ketones Urine Occult Blood Urine Nitrite Urine Bilirubin Urine Urobilinogen Ur Leukocyte Esterase Urine RBC Urine WBC Ur Squamous Epith Cells Urine Bacteria Urine Mucus Urine Opiates Screen Urine Methadone Screen Ur Barbiturates Screen Ur Phencyclidine Scrn Ur Amphetamines Screen U Methamphetamin-MDMA U Benzodiazepines Scrn Urine Cocaine Screen U Cannabinoids Screen Ur Drug Screen Comment - Other Studies Radiology: [] reviewed Other Studies: [] Route of nutrition/ use of supplements: [] Nutritional Intake: [] IV Site: [] Alarcon Catheter: [] - Physical Exam General: Oriented x3, No apparent distress, Lethargic HEENT: Atraumatic, PERRLA, EOMI, - - multiple rotted teeth Neck: Supple, No Nodes Lungs: Clear to auscultation, Normal air movement Cardiovascular: Regular rate, Regular Rhythm Abdomen: Soft, Non Tender, Non-Distended Extremities: No edema Skin: No rashes IV Site: - - R chest former port site Musculoskeletal: No Tenderness to Palpation of Joints or Extremities Neurological: Cranial nerves II-XII grossly intact - Assessment/Plan Antibiotics: [] Assessment/Plan: [] Active and Suspected Problems (Last Updated 08/22/20 @ 13:[address] Jania Torres MD) Septic shock (Acute) septic shock due to GBS bacteremia per pcr with infected port and suspected cholecystitis - pt denies abd pain, nontender on exam this AM. Port removed by Dr. Mendez 08/22. Fever improved, remains on pressor. Tox screen neg. Cont vanc/zosyn for now. Plan on stopping vanc tomorrow if no sign of MRSA. Will follow, thank you
--- NOTE | 2020-08-22 14:41 | MRI_ITS ---
STUDY: MRI THORACIC SPINE WITHOUT CONTRAST REASON FOR EXAM: Female, 60 years old. back pain, bacteremia TECHNIQUE: Standardized fat and water weighted pulse sequences were obtained in the sagittal and axial planes. COMPARISON: None. FINDINGS: Examination is technically suboptimal due to motion artifact, excessive image noise and lack of IV contrast. Some diagnostic information is available. Thoracic spine is intact and aligned. Marrow is mildly degenerated. There is multilevel disc and endplate degenerative, age-appropriate. Paraspinous soft tissues are normal. There are moderate bilateral pleural effusions. Canal contents are suboptimally evaluated. This probably multilevel mild spondylotic thecal sac stenosis without cord compression. Spinal cord is suboptimally seen but is normal in size and shape. Detection of cord lesions is not possible. Conus medullaris terminates at appropriate level of L1. Epidural space is suboptimally evaluated. However, there is no mass epidural disease. Detection of flat epidural disease is not possible. MRI/Spine Thoracic (Routine) IMPRESSION: 1. Technically suboptimal exam. 2. Degenerative changes. 3. No spinal infection on noncontrast exam. 4. Bilateral pleural effusions. Electronically Signed: Ashely Peterson MD at 20:34 EST Tel , Service support ,
--- NOTE | 2020-08-22 14:41 | MRI_ITS ---
STUDY: MRI LUMBAR SPINE WITHOUT CONTRAST REASON FOR EXAM: 60-year-old female with back pain, bacteremia TECHNIQUE: Standardized fat and water weighted pulse sequences were obtained in the sagittal and axial planes. COMPARISON: None FINDINGS: Examination is mildly technically suboptimal due to motion artifact and lack of IV contrast. Diagnostic information is available. T12-L1: Normal endplates. Normal disc height, hydration and morphology. Normal bilateral facet joints. Normal central canal and bilateral lateral recesses. Normal bilateral intervertebral neural foramina. Normal lumbar lordosis. There is no substantial scoliosis. Normal conus medullaris that terminates at the T12-L1 . Cauda equina is normal. Noncontrast epidural space is normal. L1-2: Normal endplates. Normal disc height, hydration and morphology. Normal bilateral facet joints. Normal central canal and bilateral lateral recesses. Normal bilateral intervertebral neural foramina. L2-3: Normal endplates. Normal disc height, decreased hydration and mild degenerative morphology. Normal bilateral facet joints. Normal central canal and bilateral lateral recesses. Normal bilateral intervertebral neural foramina. L3-4: Normal endplates. Normal disc height, decreased hydration and mild degenerative morphology. Normal bilateral facet joints. Mildly stenotic central canal and patent bilateral lateral recesses. Normal bilateral intervertebral neural foramina. L4-5: Normal endplates. Normal disc height, decreased hydration and degenerative bulge morphology. Facets are degenerated. Ligamentum flavum is thickened. Thecal sac is moderately stenotic. Lateral recesses are stenotic. There is moderate bilateral foraminal stenosis. L5-S1: Normal endplates. Normal disc height, hydration and morphology. Normal bilateral facet joints. Normal central canal and bilateral lateral recesses. Normal bilateral intervertebral neural foramina. Normal visualized sacral ala. Normal visualized paraspinous soft tissue structures. There is a benign left renal cyst. There is no hydronephrosis. There is no psoas abscess. MRI/Spine Lumbar (Routine) IMPRESSION: 1. Degenerative changes. 2. Moderate L4-L5, mild L3-L4 thecal sac stenosis. 3. No spinal infection on noncontrast MR. Electronically Signed: Ashely Peterson MD at 20:38 EST Tel , Service support ,
--- NOTE | 2020-08-22 15:00 | CASEMGMT ---
RN CM NOTE: Attempted x 2 per S.ADDI Belcher CM, to reach pt's daughter to complete initial RN CM assessment. No answer. ADDI POON to attempt at a later time. Shaun MIN RN CM
[2020-08-22 15:33] LABS: Hemoglobin A1c 10.6 % (3.8-5.6)
[2020-08-22] MEDS: fentaNYL 100 MCG/2 ML Ampul 50 MCG IV (17:59)
[2020-08-22] MEDS: 0.9% Saline Lock 10 ML Syringe IV (17:59)
[2020-08-22] MEDS: 0.9% Normal Saline 1,000 ML 100 ML IV (20:09)
[2020-08-22 20:21] LABS: Bedside Glucose 185 mg/dL (70-110)
--- NOTE | 2020-08-22 23:30 | CT_ITS ---
STUDY: CT BRAIN WITHOUT CONTRAST REASON FOR EXAM: Female, 60 years old. confusion RADIATION DOSAGE (If Supplied By Facility): CTDIvol = ( 44.99 ) mGy, DLP = ( 812.98 ) mGycm TECHNIQUE: Transaxial CT imaging of the brain was performed without administration of intravenous contrast material. Individualized dose optimization techniques were used for this CT. COMPARISON: No relevant priors. FINDINGS: Normal soft tissue structures. Normal calvarium. There is mild cerebral atrophy with widening of the extra-axial spaces and ventricular dilatation. Normal white matter tracts of the cerebral hemispheres. Normal basal ganglia and thalami. Normal brainstem. Normal cerebellum. There is no intracranial hemorrhage. There are no findings of an acute ischemic infarction. Normal visualized paranasal sinuses. CT/Brain/Head without Contrast IMPRESSION: Chronic involutional changes of the brain. Electronically Signed: Jim Meier DO at 0:53 EST Tel , Service support ,
--- NOTE | 2020-08-22 23:31 | CT_ITS ---
STUDY: CT ABDOMEN AND PELVIS WITH CONTRAST REASON FOR EXAM: Female, 60 years old. Colitis, h/o lymphoma RADIATION DOSAGE (If Supplied By Facility): CTDIvol = ( 16.58 ) mGy, DLP = ( 1135.30 ) mGycm TECHNIQUE: Transaxial images were obtained from the dome of the diaphragm to the symphysis pubis without oral contrast. IV 100mL Isovue-370 was administered. Sagittal and coronal images were reconstructed. Individualized dose optimization techniques were used for this CT. COMPARISON: None. FINDINGS: The visualized lung bases are unremarkable. The visualized portions of the heart are within normal limits. Normal liver. Gallstones with prominent pericholecystic fluid or gallbladder wall thickening. Suggestion of acute cholecystitis. Mildly dilated common bile duct as well. Normal spleen. Normal pancreas. Normal bilateral adrenal glands. Normal right kidney. Normal left kidney. Left lower pole renal cyst Normal visualized stomach. Normal small intestine. Normal colon. The appendix is visualized and appears normal. Normal abdominal aorta. Normal inferior vena cava. Normal retroperitoneum. Normal urinary bladder. There is atrophy of the uterus. Normal abdominal wall. Normal osseous structures. CT/Abdomen/Pelvis W IV Cont ONLY IMPRESSION: 1. Gallstones with prominent pericholecystic fluid and gallbladder wall thickening as well as dilated common bile duct. Findings are concerning for acute cholecystitis 2. No evidence to suggest colitis or acute diverticulitis 3. Lung bases are clear Electronically Signed: Jim Meier DO at 0:55 EST Tel , Service support ,
[2020-08-22 23:35] LABS: Bedside Glucose 171 mg/dL (70-110)
[2020-08-23] VITALS (18 sets, daily range): BP systolic 95–145; BP diastolic 56–97; PULSE 58–126; RESP 12–27; TEMP 36.7–37.4; O2SAT 91–98
[2020-08-23] MEDS: fentaNYL 100 MCG/2 ML Ampul 50 MCG IV ×2 (04:34→08:06)
[2020-08-23] MEDS: 0.9% Saline Lock 10 ML Syringe IV (04:35)
[2020-08-23] MEDS: Insulin Lispro 100 UNIT/ML INSULN.PEN SC ×3 (05:47→17:09)
[2020-08-23 05:51] LABS: Bedside Glucose 199 mg/dL (70-110)
[2020-08-23 06:05] LABS: Absolute Lymphocyte Count 1.04 X10^3/uL (0.83-4.51); Absolute Neutrophil Count 13.9 X10^3/uL (2.0-7.7); Basophil# 0.03 X10^3/uL; Basophil% 0.2 % (0-1); Eosinophil# 0.02 X10^3/uL; Eosinophils% 0.1 % (0-5); Hemoglobin 8.6 g/dL (12.0-15.0); Lymphocyte # 1.04 X10^3/ul (4.0); Lymphocyte % 6.6 % (19-41); Mean Corp Hgb Conc 31.9 g/dL (32-36); Mean Corpuscular Hgb 28.9 pg (27.0-32.0); Mean Corpuscular Volume 90.6 fL (81-99); Mean Platelet Vol. 11.4 fl (6.2-12.0); Monocyte# 0.64 X10^3/uL; Monocyte% 4.1 % (0-10); NRBC Flagged by Analyzer 0 % (0-5); Neutrophil # 13.91 X10^3/uL (2.7-7.7); Neutrophil % 88.2 % (47-70); Platelet Count 116 K/mm3 (150-450); RBC Distribution Width CV 15.1 % (11.6-14.6); RBC Distribution Width SD 50.1 fl (35.1-43.9); Red Blood Count 2.98 M/mm3 (4.2-5.4); White Blood Count 15.8 K/mm3 (4.4-11.0)
[2020-08-23 06:22] LABS: ALB/GLOB Ratio 0.5 RATIO (0.9-2.4); AST(SGOT) 32 U/L (15-37); Alanine Aminotransfer ALT/SGPT 21 U/L (13-56); Albumin, Serum 1.9 g/dL (3.2-5.0); Alkaline Phosphatase 175 U/L (45-117); Anion Gap 6 (5-15); BUN 10 mg/dL (7-18); Calcium,Total 7.5 mg/dL (8.5-10.1); Chloride 110 mmol/L (98-107); Creatinine, Serum 0.43 mg/dL (0.55-1.02); EST Glomerular Filtration Rate 156 mL/min (>60); Est Glom Filt Rate - Afr Amer 189 mL/min (>60); Estimated Creatinine Clearance 131.91 ml/min; Globulin 3.7 g/dL (2.2-4.2); Glucose 192 mg/dL (74-106); Potassium 3.6 mmol/L (3.5-5.1); Protein, Total 5.6 g/dL (6.4-8.2); Sodium Level 140 mmol/L (136-145)
--- NOTE | 2020-08-23 06:42 | PN.SURG_ITS ---
Patient Problems: Active and Suspected Problems (Last Updated 08/22/20 @ 13:[address] Jania Torres MD) Bacteremia (Acute) Septic shock (Acute) Subjective: Patient improved this morning with no pressors at the current time. - Physical Exam Vitals/I&O's: Vital Signs Temp Pulse Resp BP Pulse Ox 99.2 F H 78 27 H 126/56 H 95 08/23/20 06:00 08/23/20 06:00 08/23/20 06:00 08/23/20 06:00 08/23/20 06:00 Oxygen Flow Rate (L/min) [4] 2 Oxygen Flow Rate (L/min) [3] 4 Oxygen Flow Rate (L/min) [2] 4 Oxygen Flow Rate (L/min) [1 ( 2 Initial Baseline)] Oxygen Flow Rate (L/min) 2 Oxygen Delivery Method [4] Nasal Cannula Oxygen Delivery Method [3] Nasal Cannula Oxygen Delivery Method [2] Nasal Cannula Oxygen Delivery Method [1 ( Room Air Initial Baseline)] Oxygen Delivery Method Room Air Weight: 157 lb 6.561 oz Body Mass Index (BMI) 23.8 Intake and Output for Last 24 Hours 08/21/20 08/22/20 08/23/20 23:59 23:59 23:59 Intake Total 6945.66 / 6945.66 1140 / 1140 Output Total 1150 / 1150 250 / 250 Balance 5795.66 / 5795.66 890 / 890 General: Alert, Confused Neck: No JVD Abdomen: Soft, Non-Distended, Tender Microbiology Past 72 Hours 08/22/20 01:53 Other - Randy Cath Gram Stain - Final 08/22/20 01:53 Abs - Chest Gram Stain - Final 08/21/20 23:45 Blood Culture (Wb) - Anticubital Left Bacteria Detection (PCR) - Final Streptococcus agalactiae (B) 08/21/20 23:45 Blood Culture (Wb) - Anticubital Left Blood Culture - Preliminary 08/22/20 00:45 Blood Culture (Wb) - Right Hand Blood Culture - Preliminary 08/22/20 00:10 Mucosa - Nose SARS-CoV-2 Antigen (Rapid) - Final Laboratory Results 08/22/20 05:15: Hemoglobin A1c 10.6 H 08/22/20 12:06: POC Glucose 253 H 08/22/20 20:07: POC Glucose 185 H 08/22/20 23:32: POC Glucose 171 H 08/23/20 05:46: POC Glucose 199 H 08/23/20 05:57: WBC 15.8 H, RBC 2.98 L, Hgb 8.6 L, Hct 27.0 L, MCV 90.6, MCH 28.9, MCHC 31.9 L, RDW Std Deviation 50.1 H, RDW Coeff of Devi 15.1 H, Plt Count 116 L, MPV 11.4, Immature Gran % (Auto) 0.800, Neut % (Auto) 88.2 H, Lymph % (Auto) 6.6 L, [place] % (Auto) 4.1, Eos % (Auto) 0.1, Baso % (Auto) 0.2, Absolute Neuts (auto) 13.9 H, Absolute Lymphs (auto) 1.04, Nucleated RBC % 0 08/23/20 05:57: Sodium 140, Potassium 3.6, Chloride 110 H, Carbon Dioxide 24.0, Anion Gap 6, BUN 10, Creatinine 0.43 L, Estim Creat Clear Calc 131.91, Est GFR (MDRD) Af Amer 189, Est GFR (MDRD) Non-Af 156, BUN/Creatinine Ratio 23.0 H, Glucose 192 H, Calcium 7.5 L, Total Bilirubin 0.90, AST 32, ALT 21, Alkaline Phosphatase 175 H, Total Protein 5.6 L, Albumin 1.9 L, Globulin 3.7, Albumin/Globulin Ratio 0.5 L Current Medications Dextrose (Dextrose 50%-Water 25 Gm/50 Ml Disp.Syrin) 0 gm IV X1 PRN; Protocol PRN Reason: Hypoglycemia Fentanyl Citrate (Fentanyl 100 Mcg/2 Ml Ampul) 50 mcg IV Q2H PRN PRN PRN Reason: Pain Score 6-10 Last Admin: 08/23/20 04:34 Dose: 50 mcg Documented by: Glucagon (Glucagon 1 Mg/Ml Syringe) 1 mg IM .X1 PRN PRN Reason: Hypoglycemia Haloperidol Lactate (Haloperidol Lactate 5 Mg/Ml Vial) 5 mg IV Q6H PRN PRN PRN Reason: AGITATION Vancomycin IV Pharmacy to Dose (1 ea/ Sodium Chloride) 500 mls @ 250 mls/hr IV PRN PRN; Protocol PRN Reason: Rx to Dose Piperacillin Sod/Tazobactam (Sod 3.375 gm/ Sodium Chloride) 50 mls @ 12.5 m ls/hr IV Q8 [facility] Last Admin: 08/23/20 05:46 Dose: 12.5 mls/hr Documented by: Sodium Chloride () 250 mls @ 15 mls/hr IV .[id number] PRN PRN Reason: Saline Flush Norepinephrine Bitartrate 8 mg (/ Sodium Chloride) 250 mls @ 9.375 mls/hr CONT INF .[id number] RAHEEM; Protocol Last Titration: 08/22/20 17:00 Dose: 0 mcg/min, 0 mls/hr Documented by: Vancomycin HCl 1,250 mg/ (Sodium Chloride) 275 mls @ 167 mls/hr IV Q12H [facility] Last Infusion: 08/23/20 03:29 Dose: Infused Documented by: Insulin Human Lispro (Insulin Lispro 100 Unit/Ml Insuln.Pen) 0 unit SC Q6H RAHEEM; Protocol Last Admin: 08/23/20 05:47 Dose: 2 units Documented by: Ondansetron HCl (Ondansetron 4 Mg/2 Ml Vial) 4 mg IV Q8H PRN PRN PRN Reason: NAUSEA/VOMITING Sodium Chloride (0.9% Saline Lock 10 Ml Syringe) 10 - 40 ml IV UD PRN PRN Reason: SALINE FLUSH Last Admin: 08/23/20 04:35 Dose: 10 ml Documented by: Medical Necessity - Tobacco Use Smoking Status: Current every day smoker Tobacco Use: Cigarettes Assessment/Plan All Active Problems (Last Updated 08/22/20 @ 13:[address] Jania Torres MD) Acute cholecystitis (Acute) Bacteremia (Acute) Septic shock (Acute) 60-year-old female with acute cholecystitis and port infection 1. Patient's port was removed and her white count is coming down on antibiotics. She does have acute cholecystitis as well. Plan is to continue antibiotics at this time. Continue clear liquids. Cesar Mendez MD Pager: [facility] [address] [place] [address], [address] [place] [address] Office:
--- NOTE | 2020-08-23 06:47 | PN_ITS ---
Subjective: Patient did well overnight. Patient has been tolerating a clear diet well. Mental status has improved overnight. Patient is tolerating room air and has been off pressors. No boluses have been required. Patient is not reporting any abdominal pain at this time. General: Alert, Cooperative, No apparent distress, - - No conversational dyspnea HEENT: Atraumatic, PERRLA, EOMI, Normocephalic, - - No scleral icterus or injection Oral: Moist Mucosa, No Gingival or Mucosal Lesions/ Ulcerations Neck: Supple, No JVD, No Nodes, Trachea Midline Lungs: No rhonchi, No wheeze, No rales, Diminished, - - Port site is showing joaquin e mild purulent drainage Cardiovascular: Regular rate, Regular Rhythm, Normal S1, Normal S2, No murmurs, No rub noted, No Gallop Abdomen: Bowel Sounds Present, Soft, Non Tender, Non-Distended, Obese Extremities: No clubbing, No cyanosis, No edema Skin: - - Chest wound looks good Musculoskeletal: No Tenderness to Palpation of Joints or Extremities Lymphatic: No Cervical, Supraclavicular, or Inguinal Adenopathy Neurological: Cranial nerves II-XII grossly intact, Neuro grossly intact, Motor Exam 5/5 strength throughout Psych/Mental Status: Alert and oriented to time, place, person, mood and affect Vital Signs Temp Pulse Resp BP Pulse Ox 37.3 C H 78 27 H 126/56 H 95 08/23/20 06:00 08/23/20 06:00 08/23/20 06:00 08/23/20 06:00 08/23/20 06:00 Oxygen Flow Rate (L/min) [4] 2 Oxygen Flow Rate (L/min) [3] 4 Oxygen Flow Rate (L/min) [2] 4 Oxygen Flow Rate (L/min) [1 ( 2 Initial Baseline)] Oxygen Flow Rate (L/min) 2 Oxygen Delivery Method [4] Nasal Cannula Oxygen Delivery Method [3] Nasal Cannula Oxygen Delivery Method [2] Nasal Cannula Oxygen Delivery Method [1 ( Room Air Initial Baseline)] Oxygen Delivery Method Room Air Weight: 71.4 kg Body Mass Index (BMI) 23.8 Intake and Output for Last 24 Hours 08/21/20 08/22/20 08/23/20 23:59 23:59 23:59 Intake Total 6945.66 / 6945.66 1140 / 1140 Output Total 1150 / 1150 250 / 250 Balance 5795.66 / 5795.66 890 / 890 Labs (Last 48 Hours) 08/21/20 08/21/20 08/21/20 23:45 23:45 23:45 WBC 10.4 RBC 3.52 L Hgb 10.1 L Hct 30.5 L MCV 86.6 MCH 28.7 MCHC 33.1 RDW Std Deviation 45.5 H RDW Coeff of Devi 14.5 Plt Count 103 L MPV 10.9 Immature Gran % (Auto) 1.300 H Neut % (Auto) 95.4 H Lymph % (Auto) 1.9 L Riley % (Auto) 0.6 Eos % (Auto) 0.1 Baso % (Auto) 0.7 Absolute Neuts (auto) 10.0 H Absolute Lymphs (auto) 0.20 L Nucleated RBC % 0 Differential Comment SCANNED Platelet Estimate Sodium 135 L Potassium 3.9 Chloride 98 Carbon Dioxide 31.0 Anion Gap 6 BUN 13 Creatinine 0.78 Estim Creat Clear Calc 72.72 Est GFR (MDRD) Af Amer 97 Est GFR (MDRD) Non-Af 80 BUN/Creatinine Ratio 16.8 Glucose 386 H Hemoglobin A1c Lactic Acid 3.5 H* Calcium 8.6 Total Bilirubin 1.10 H AST 18 ALT 17 Alkaline Phosphatase 181 H Total Protein 6.6 Albumin 2.5 L Globulin 4.1 Albumin/Globulin Ratio 0.6 L Lipase 36 L Urine Color Urine Clarity Urine pH Ur Specific Graham Urine Protein Urine Glucose (UA) Urine Ketones Urine Occult Blood Urine Nitrite Urine Bilirubin Urine Urobilinogen Ur Leukocyte Esterase Urine RBC Urine WBC Ur Squamous Epith Cells Urine Bacteria Urine Mucus Urine Opiates Screen Urine Methadone Screen Ur Barbiturates Screen Ur Phencyclidine Scrn Ur Amphetamines Screen U Methamphetamin-MDMA U Benzodiazepines Scrn Urine Cocaine Screen U Cannabinoids Screen Ur Drug Screen Comment POC Glucose 08/21/20 08/21/20 08/22/20 23:45 23:45 03:40 WBC RBC Hgb Hct MCV MCH MCHC RDW Std Deviation RDW Coeff of Devi Plt Count MPV Immature Gran % (Auto) Neut % (Auto) Lymph % (Auto) Riley % (Auto) Eos % (Auto) Baso % (Auto) Absolute Neuts (auto) Absolute Lymphs (auto) Nucleated RBC % Differential Comment Platelet Estimate Sodium Potassium Chloride Carbon Dioxide Anion Gap BUN Creatinine Estim Creat Clear Calc Est GFR (MDRD) Af Amer Est GFR (MDRD) Non-Af BUN/Creatinine Ratio Glucose Hemoglobin A1c Lactic Acid 0.9 Calcium Total Bilirubin AST ALT Alkaline Phosphatase Total Protein Albumin Globulin Albumin/Globulin Ratio Lipase Urine Color Yellow Urine Clarity Sl. Cloudy Urine pH 5.0 Ur Specific Graham 1.015 Urine Protein 30 H Urine Glucose (UA) 1000 H Urine Ketones Negative Urine Occult Blood 25 H Urine Nitrite Negative Urine Bilirubin Negative Urine Urobilinogen 4 H Ur Leukocyte Esterase Negative Urine RBC 0-5 SEEN Urine WBC 0-5 SEEN Ur Squamous Epith Cells 0 SEEN Urine Bacteria 0 SEEN Urine Mucus 0 SEEN Urine Opiates Screen NEGATIVE Urine Methadone Screen NEGATIVE Ur Barbiturates Screen NEGATIVE Ur Phencyclidine Scrn NEGATIVE Ur Amphetamines Screen NEGATIVE U Methamphetamin-MDMA NEGATIVE U Benzodiazepines Scrn NEGATIVE Urine Cocaine Screen NEGATIVE U Cannabinoids Screen NEGATIVE Ur Drug Screen Comment POC Glucose 08/22/20 08/22/20 08/22/20 04:56 05:15 05:15 WBC 19.6 H RBC 2.77 L Hgb 8.0 L Hct 24.3 L MCV 87.7 MCH 28.9 MCHC 32.9 RDW Std Deviation 46.4 H RDW Coeff of Devi 14.5 Plt Count 90 L MPV 11.0 Immature Gran % (Auto) 0.900 Neut % (Auto) 91.4 H Lymph % (Auto) 2.4 L Riley % (Auto) 4.9 Eos % (Auto) 0.0 Baso % (Auto) 0.4 Absolute Neuts (auto) 17.9 H Absolute Lymphs (auto) 0.47 L Nucleated RBC % 0 Differential Comment SCANNED Platelet Estimate SLT DEC Sodium 139 Potassium 3.3 L Chloride 107 Carbon Dioxide 25.0 Anion Gap 7 BUN 14 Creatinine 0.56 Estim Creat Clear Calc 97.51 Est GFR (MDRD) Af Amer 142 Est GFR (MDRD) Non-Af 118 BUN/Creatinine Ratio 25.2 H Glucose 323 H Hemoglobin A1c Lactic Acid Calcium 7.1 L Total Bilirubin 0.70 AST 16 ALT 15 Alkaline Phosphatase 115 Total Protein 5.1 L Albumin 1.9 L Globulin 3.2 Albumin/Globulin Ratio 0.6 L Lipase Urine Color Urine Clarity Urine pH Ur Specific Graham Urine Protein Urine Glucose (UA) Urine Ketones Urine Occult Blood Urine Nitrite Urine Bilirubin Urine Urobilinogen Ur Leukocyte Esterase Urine RBC Urine WBC Ur Squamous Epith Cells Urine Bacteria Urine Mucus Urine Opiates Screen Urine Methadone Screen Ur Barbiturates Screen Ur Phencyclidine Scrn Ur Amphetamines Screen U Methamphetamin-MDMA U Benzodiazepines Scrn Urine Cocaine Screen U Cannabinoids Screen Ur Drug Screen Comment POC Glucose 315 H 08/22/20 08/22/20 08/22/20 05:15 12:06 20:07 WBC RBC Hgb Hct MCV MCH MCHC RDW Std Deviation RDW Coeff of Devi Plt Count MPV Immature Gran % (Auto) Neut % (Auto) Lymph % (Auto) Riley % (Auto) Eos % (Auto) Baso % (Auto) Absolute Neuts (auto) Absolute Lymphs (auto) Nucleated RBC % Differential Comment Platelet Estimate Sodium Potassium Chloride Carbon Dioxide Anion Gap BUN Creatinine Estim Creat Clear Calc Est GFR (MDRD) Af Amer Est GFR (MDRD) Non-Af BUN/Creatinine Ratio Glucose Hemoglobin A1c 10.6 H Lactic Acid Calcium Total Bilirubin AST ALT Alkaline Phosphatase Total Protein Albumin Globulin Albumin/Globulin Ratio Lipase Urine Color Urine Clarity Urine pH Ur Specific Graham Urine Protein Urine Glucose (UA) Urine Ketones Urine Occult Blood Urine Nitrite Urine Bilirubin Urine Urobilinogen Ur Leukocyte Esterase Urine RBC Urine WBC Ur Squamous Epith Cells Urine Bacteria Urine Mucus Urine Opiates Screen Urine Methadone Screen Ur Barbiturates Screen Ur Phencyclidine Scrn Ur Amphetamines Screen U Methamphetamin-MDMA U Benzodiazepines Scrn Urine Cocaine Screen U Cannabinoids Screen Ur Drug Screen Comment POC Glucose 253 H 185 H 08/22/20 08/23/20 08/23/20 23:32 05:46 05:57 WBC 15.8 H RBC 2.98 L Hgb 8.6 L Hct 27.0 L MCV 90.6 MCH 28.9 MCHC 31.9 L RDW Std Deviation 50.1 H RDW Coeff of Devi 15.1 H Plt Count 116 L MPV 11.4 Immature Gran % (Auto) 0.800 Neut % (Auto) 88.2 H Lymph % (Auto) 6.6 L Riley % (Auto) 4.1 Eos % (Auto) 0.1 Baso % (Auto) 0.2 Absolute Neuts (auto) 13.9 H Absolute Lymphs (auto) 1.04 Nucleated RBC % 0 Differential Comment Platelet Estimate Sodium Potassium Chloride Carbon Dioxide Anion Gap BUN Creatinine Estim Creat Clear Calc Est GFR (MDRD) Af Amer Est GFR (MDRD) Non-Af BUN/Creatinine Ratio Glucose Hemoglobin A1c Lactic Acid Calcium Total Bilirubin AST ALT Alkaline Phosphatase Total Protein Albumin Globulin Albumin/Globulin Ratio Lipase Urine Color Urine Clarity Urine pH Ur Specific Graham Urine Protein Urine Glucose (UA) Urine Ketones Urine Occult Blood Urine Nitrite Urine Bilirubin Urine Urobilinogen Ur Leukocyte Esterase Urine RBC Urine WBC Ur Squamous Epith Cells Urine Bacteria Urine Mucus Urine Opiates Screen Urine Methadone Screen Ur Barbiturates Screen Ur Phencyclidine Scrn Ur Amphetamines Screen U Methamphetamin-MDMA U Benzodiazepines Scrn Urine Cocaine Screen U Cannabinoids Screen Ur Drug Screen Comment POC Glucose 171 H 199 H 08/23/20 05:57 WBC RBC Hgb Hct MCV MCH MCHC RDW Std Deviation RDW Coeff of Devi Plt Count MPV Immature Gran % (Auto) Neut % (Auto) Lymph % (Auto) Riley % (Auto) Eos % (Auto) Baso % (Auto) Absolute Neuts (auto) Absolute Lymphs (auto) Nucleated RBC % Differential Comment Platelet Estimate Sodium 140 Potassium 3.6 Chloride 110 H Carbon Dioxide 24.0 Anion Gap 6 BUN 10 Creatinine 0.43 L Estim Creat Clear Calc 131.91 Est GFR (MDRD) Af Amer 189 Est GFR (MDRD) Non-Af 156 BUN/Creatinine Ratio 23.0 H Glucose 192 H Hemoglobin A1c Lactic Acid Calcium 7.5 L Total Bilirubin 0.90 AST 32 ALT 21 Alkaline Phosphatase 175 H Total Protein 5.6 L Albumin 1.9 L Globulin 3.7 Albumin/Globulin Ratio 0.5 L Lipase Urine Color Urine Clarity Urine pH Ur Specific Graham Urine Protein Urine Glucose (UA) Urine Ketones Urine Occult Blood Urine Nitrite Urine Bilirubin Urine Urobilinogen Ur Leukocyte Esterase Urine RBC Urine WBC Ur Squamous Epith Cells Urine Bacteria Urine Mucus Urine Opiates Screen Urine Methadone Screen Ur Barbiturates Screen Ur Phencyclidine Scrn Ur Amphetamines Screen U Methamphetamin-MDMA U Benzodiazepines Scrn Urine Cocaine Screen U Cannabinoids Screen Ur Drug Screen Comment POC Glucose Microbiology 08/22/20 01:53 Other - Randy Cath Gram Stain - Final 08/22/20 01:53 Abs - Chest Gram Stain - Final 08/21/20 23:45 Blood Culture (Wb) - Anticubital Left Bacteria Detection (PCR) - Final Streptococcus agalactiae (B) 08/21/20 23:45 Blood Culture (Wb) - Anticubital Left Blood Culture - Preliminary 08/22/20 00:45 Blood Culture (Wb) - Right Hand Blood Culture - Preliminary 08/22/20 00:10 Mucosa - Nose SARS-CoV-2 Antigen (Rapid) - Final Clinical Impression(s) from Imaging Studies Abdomen Ultrasound 08/22/20 05:55 IMPRESSION: Hepatomegaly and fatty infiltration of the liver. Small amount of perihepatic fluid. Multiple gallstones with thickened gallbladder wall and small amount of pericholecystic fluid. Findings in keeping with acute cholecystitis. Electronically Signed: Yariel Cool MD at 8:58 EST , Service support , Chest X-Ray 08/22/20 06:18 IMPRESSION: The portacatheter has been removed. I suspect a tiny right apical pneumothorax. Increased markings in the right lung suggests a mild degree of vascular congestion. Electronically Signed: Yariel Cool MD at 8:02 EST , Service support , Lumbar Spine MRI 08/22/20 14:41 IMPRESSION: 1. Degenerative changes. 2. Moderate L4-L5, mild L3-L4 thecal sac stenosis. 3. No spinal infection on noncontrast MR. Electronically Signed: Ashely Peterson MD at 20:38 EST Tel , Service support , Thoracic Spine MRI 08/22/20 14:41 IMPRESSION: 1. Technically suboptimal exam. 2. Degenerative changes. 3. No spinal infection on noncontrast exam. 4. Bilateral pleural effusions. Electronically Signed: Ashely Peterson MD at 20:34 EST Tel , Service support , Medical Necessity - Tobacco Use Smoking Status: Current every day smoker Tobacco Use: Cigarettes Assessment/Plan All Active Problems (Last Updated 08/22/20 @ 13:[address] Jania Torres MD) Acute cholecystitis (Acute) Bacteremia (Acute) Septic shock (Acute) RECOMMENDATIONS: 1. Okay to continue with clears 2. Antibiotics per infectious disease 3. Obtain echocardiogram to rule out endocarditis 4. Okay to leave the intensive care unit from my perspective 5. Cover with sliding scale insulin 6. As needed bronchodilators if necessary 7. Discontinue IV fluids IMPRESSIONS: 1. Septic shock secondary to infected port Port was present on presentation with noted purulent material. Port has subsequently been removed, but blood cultures are already showing gram-positive cocci. Patient will be at high risk for endocarditis and embolic phenomenon at this time. Patient is currently off Levophed. We will continue with peripheral line as long as possible to allow for possible clearance of bacteremia prior to basement of invasive device. Patient will likely need a cholecystectomy once better optimized. We will monitor with physical exam and continue with empiric antibiotics. 2. Metabolic versus toxic encephalopathy Resolved. Patient reportedly has had issues with amphetamines in the past. Patient will be given Haldol as necessary to avoid complications associated with pulling out supportive devices. Continue with delirium protocol. 3. Diabetes mellitus type 2 uncontrolled Clinical suspicion for high endogenous steroid release secondary to problem #1. Will cover with sliding scale insulin. Patient will likely not be able to tolerate a significant diet at this time. Hypokalemia likely secondary to resolution of acidosis more than acute losses. This can be supplemented. 4. Poor history/poor follow-up/tobacco abuse/COPD Complicates care, management, recovery and prognosis. Patient is reportedly a full code. We will continue to monitor closely. SCDs have been added for DVT prophylaxis as patient does have a high risk of need for invasive procedures. Can use as needed bronchodilators if necessary. Patient with significant obstruction on previous PFT. Anticipate this is worse given continued tobacco abuse. Inpatient E&M: 29820 [facility] Hosp L3
--- NOTE | 2020-08-23 06:51 | ECHOD_ITS ---
Reason For Study: R/O Endocarditis Procedure This was a 2D Doppler, Color Flow transthoracic echocardiogram. Exam performed portable in ICU/CCU. Left Ventricle Normal left ventricle. The estimated ejection fraction is EF 55-60% %. Right Ventricle Normal right ventricle. Normal systolic function. Atria Normal left atrium. Mitral Valve The mitral valve is structurally normal. No prolapse or stenosis seen. Tricuspid Valve Normal tricuspid valve. Mild tricuspid valve insufficiency. Aortic Valve Normal aortic valve. Pulmonic Valve The pulmonic valve is not well visualized. Great Vessels Normal aortic root. Pericardium/Pleural No pericardial effusion. MMode/2D Measurements & Calculations LVIDd: 4.3 cm IVSd: 1.3 cm Ao root diam: 3.5 cm LVIDs: 2.6 cm LVPWd: 0.99 cm FS: 39.8 % LAV(MOD-bp): 55.8 ml EDV(MOD-sp4): 103.2 ml EDV(MOD-sp2): 104.7 ml LAV(MOD-bp) Indexed: 30.6 ml/m2 ESV(MOD-sp4): 37.8 ml EF(MOD-sp2): 62.4 % LAV(MOD-sp2): 54.2 ml EF(MOD-sp4): 63.3 % LAV(MOD-sp4): 50.2 ml SV(MOD-sp4): 65.4 ml SV(MOD-sp2): 65.3 ml LA A4 area: 17.0 cm2 LA dimension(2D): 3.9 cm RA A4 area: 16.5 cm2 Doppler Measurements & Calculations MV E max cresencio: 73.8 cm/sec Lat Peak E' Cresencio: 11.7 cm/sec Med Peak E' Cresencio: 8.7 cm/sec MV A max cresencio: 79.9 cm/sec E/E' lat: 6.3 E/E' med: 8.5 MV E/A: 0.92 Ao V2 max: 211.2 cm/sec LV V1 max: 101.3 cm/sec PA V2 max: 118.3 cm/sec Ao max P.4 mmHg LV V1 max P.1 mmHg TR max cresencio: 230.9 cm/sec TR max P.3 mmHg Interpretation Summary Normal LV systolic Function. The estimated ejection fraction is EF 55-60% %. Moderate size echogenic vegetation,attached to the Eustachian Valve consistent with /ALIZE TV is Normal Recommendation: SHABANA evaluation and cardiology /ID consult Ordering Physician: Bj Hernandez Referring Physician: Kiersten Esposito Performed By: Yin Harrison RDCS
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
--- NOTE | 2020-08-23 10:05 | NURSING ---
[facility] pharmacy called and will fax over updated med list.
[2020-08-23] MEDS: oxyCODONE 5 MG Tablet PO ×3 (10:42→21:37)
[2020-08-23] MEDS: Enoxaparin 40 MG/0.4 ML Syringe SC (10:43)
--- NOTE | 2020-08-23 11:25 | NURSING ---
transferred to [facility] via wheelchair, x1 assist to bed, on PCU monitor, this RN continues care for this pt.
[2020-08-23 11:46] LABS: Bedside Glucose 254 mg/dL (70-110)
--- NOTE | 2020-08-23 12:16 | NURSING ---
spoke with [facility]- per pharmacy stated patient last filled percocet 1 tablet Q6H PRN on 08/19 and last filled xarelto 15 mg 1 tab BID in March 2020, all other meds not filled since 2018. Will pass along in report to call PCP office Tuesday for updated med list.
--- NOTE | 2020-08-23 12:38 | CM.UR ---
Addendum entered by Dorinda Kurtz 08/23/20 13:38: Of[facility] HH[facility]: [facility], [facility], [facility], [facility], [facility] and [facility]. Patient chose [facility]. Brendon Kurtz RN, CCM. Original Note: RN CM Assessment Introduced role of RN CM to patient.? Patient is alert, oriented and able?to participate in RN CM Assessment. ?Care providers, pharmacy, and demographics verified. Presentation: Multiple complaints Admit Dx: severe sepsis Re-Admit: no Barriers/Issues: motivation, drowsy and hx of non-adherence PCP: Vaibhav Li [facility] Insurance: [employer] Rx Benefit:? Yes, no copays under her [employer] ?LNOK: DaughterMonalisa LW/HPOA: No, declined additional information at this time. Living Arrangements:? Lives in Mobile home, 3 steps to enter. Lives alone. Denies any accessibility problems. ADL?s: Usually independent Transportation: self or daughter monalisa DME: Walker, shower chair, handheld shower, grab bars. HHC: No SNF: Has been to [facility] Goal: Home, no needs anticipated at this time. DC PLAN: Home, no needs anticipated. Alerted patient that case management will remain available should any needs arise. Verb understanding. Brendon Kurtz RN, CCM.
[2020-08-23 13:21] LABS: Vancomycin, Trough Level 9.7 ug/mL (5.0-15.0)
--- NOTE | 2020-08-23 13:35 | PCM.RX.CS ---
Consult Pharmacy has been consulted to manage selected antiobiotic: Vancomycin Type of Consult: Follow-up Suspected Infection: Bacteremia Labs: Sodium 140 mmol/L (136-145) 08/23/20 05:57 Potassium 3.6 mmol/L (3.5-5.1) 08/23/20 05:57 Chloride 110 mmol/L (98-107) H 08/23/20 05:57 Carbon Dioxide 24.0 mmol/L (21.0-32.0) 08/23/20 05:57 Anion Gap 6 (5-15) 08/23/20 05:57 BUN 10 mg/dL (7-18) 08/23/20 05:57 Creatinine 0.43 mg/dL (0.55-1.02) L 08/23/20 05:57 Est GFR (MDRD) Af Amer 189 mL/min (>60) 08/23/20 05:57 Est GFR (MDRD) Non-Af 156 mL/min (>60) 08/23/20 05:57 BUN/Creatinine Ratio 23.0 RATIO (10-20) H 08/23/20 05:57 Glucose 192 mg/dL (74-106) H 08/23/20 05:57 Vancomycin Trough 9.7 ug/mL (5.0-15.0) 08/23/20 12:47 Microbiology: Microbiology 08/22/20 01:53 Other - Randy Cath Miscellaneous Culture - Preliminary Streptococcus agalactiae (B) 08/22/20 01:53 Other - Randy Cath Gram Stain - Final 08/22/20 01:53 Abs - Chest Gram Stain - Final 08/22/20 01:53 Abs - Chest Wound Culture - Preliminary Streptococcus agalactiae (B) 08/21/20 23:45 Blood Culture (Wb) - Anticubital Left Bacteria Detection (PCR) - Final Streptococcus agalactiae (B) 08/21/20 23:45 Blood Culture (Wb) - Anticubital Left Blood Culture - Preliminary 08/22/20 00:45 Blood Culture (Wb) - Right Hand Blood Culture - Preliminary 08/22/20 00:10 Mucosa - Nose SARS-CoV-2 Antigen (Rapid) - Final Goal Trough: 15-20 mcg/mL Pharmacy Plan for Drug Dosing: VANCOMYCIN LEVEL RECEIVED Current Vancomycin Dose: 1250MG Q12H Number of Doses Received: 3 Vancomycin Level: 9.7 MG/DL Hours Since Last Dose: 11 Renal Function: SCR 0.43, CRCL 100ML/MIN Renal Function Trend: IMPROVED Lab/Micro: GBS BACTEREMIA Vancomycin Plan/Comments: INCREASE DOSE TO 1750MG Q12 STARTING AT 1400. RECHECK TROUGH PRIOR TO 4TH DOSE OF NEW REGIMEN. Pharmacy Service will continue to monitor and adjust dosing as required. Labs to be done on [date and time ordered]: 08/25/20 @ 3510
[2020-08-23] MEDS: Acetaminophen 325 MG Tablet 650 MG PO ×2 (14:52→21:37)
[2020-08-23 17:20] LABS: Bedside Glucose 169 mg/dL (70-110)
[2020-08-23] MEDS: Morphine 2 MG/ML Syringe IV (20:06)
[2020-08-24] VITALS (10 sets, daily range): BP systolic 115–140; BP diastolic 71–79; PULSE 65–108; RESP 16–18; TEMP 36.4–37.6; O2SAT 93–98
[2020-08-24] MEDS: Morphine 2 MG/ML Syringe IV ×6 (00:22→23:24)
[2020-08-24] MEDS: Insulin Lispro 100 UNIT/ML INSULN.PEN SC ×5 (00:23→20:58)
[2020-08-24 00:31] LABS: Bedside Glucose 162 mg/dL (70-110)
[2020-08-24] MEDS: oxyCODONE 5 MG Tablet PO ×5 (03:27→20:51)
[2020-08-24] MEDS: Acetaminophen 325 MG Tablet 650 MG PO ×3 (03:27→20:50)
[2020-08-24 06:14] LABS: Absolute Lymphocyte Count 0.95 X10^3/uL (0.83-4.51); Absolute Neutrophil Count 8.9 X10^3/uL (2.0-7.7); Basophil# 0.03 X10^3/uL; Basophil% 0.3 % (0-1); Eosinophil# 0.04 X10^3/uL; Eosinophils% 0.4 % (0-5); Hematocrit 25.4 % (37-47); Hemoglobin 8.2 g/dL (12.0-15.0); Lymphocyte # 0.95 X10^3/ul (4.0); Lymphocyte % 9.1 % (19-41); Mean Corp Hgb Conc 32.3 g/dL (32-36); Mean Corpuscular Hgb 28.8 pg (27.0-32.0); Mean Corpuscular Volume 89.1 fL (81-99); Mean Platelet Vol. 10.7 fl (6.2-12.0); Monocyte# 0.53 X10^3/uL; Monocyte% 5.1 % (0-10); NRBC Flagged by Analyzer 0 % (0-5); Neutrophil # 8.86 X10^3/uL (2.7-7.7); Neutrophil % 84.4 % (47-70); Platelet Count 126 K/mm3 (150-450); RBC Distribution Width CV 15.4 % (11.6-14.6); RBC Distribution Width SD 49.9 fl (35.1-43.9); Red Blood Count 2.85 M/mm3 (4.2-5.4); White Blood Count 10.5 K/mm3 (4.4-11.0)
[2020-08-24 06:39] LABS: ALB/GLOB Ratio 0.5 RATIO (0.9-2.4); AST(SGOT) 18 U/L (15-37); Alanine Aminotransfer ALT/SGPT 17 U/L (13-56); Alkaline Phosphatase 154 U/L (45-117); Anion Gap 4 (5-15); BUN 8 mg/dL (7-18); Calcium,Total 7.7 mg/dL (8.5-10.1); Chloride 106 mmol/L (98-107); Creatinine, Serum 0.53 mg/dL (0.55-1.02); EST Glomerular Filtration Rate 123 mL/min (>60); Est Glom Filt Rate - Afr Amer 149 mL/min (>60); Estimated Creatinine Clearance 107.03 ml/min; Globulin 3.7 g/dL (2.2-4.2); Glucose 180 mg/dL (74-106); Potassium 3.7 mmol/L (3.5-5.1); Protein, Total 5.7 g/dL (6.4-8.2); Sodium Level 139 mmol/L (136-145)
[2020-08-24 06:50] LABS: Bedside Glucose 192 mg/dL (70-110)
--- NOTE | 2020-08-24 07:03 | PN_ITS ---
Subjective: Patient transferred out of the intensive care unit yesterday. Patient has remained hemodynamically stable on room air. Patient was complaining of back pain and pain associated with the Alarcon. Patient is requesting Alarcon catheter to be removed. Patient reports pain at the port site is improving. Patient is requesting a p.o. diet. Objective: Echocardiogram shows possible vegetation General: Alert, Cooperative - With direction, Confused HEENT: Atraumatic, PERRLA, EOMI, Normocephalic, - - No scleral icterus or injection noted Oral: Moist Mucosa, No Gingival or Mucosal Lesions/ Ulcerations Neck: Supple, No JVD, No Nodes, Trachea Midline Lungs: No rhonchi, No wheeze, No rales, Diminished, - - Fair effort Cardiovascular: Regular rate, Regular Rhythm, Normal S1, Normal S2, No murmurs, No rub noted, No Gallop, - - Port site is clean, dry and intact Abdomen: Bowel Sounds Present, Soft, Non Tender, Non-Distended, Obese Extremities: No clubbing, No cyanosis, No edema Skin: - - No change from previous Musculoskeletal: No Tenderness to Palpation of Joints or Extremities Lymphatic: No Cervical, Supraclavicular, or Inguinal Adenopathy Neurological: Cranial nerves II-XII grossly intact, Neuro grossly intact, Motor Exam 5/5 strength throughout Psych/Mental Status: Alert and oriented to time, place, person, mood and affect Vital Signs Temp Pulse Resp BP Pulse Ox 36.6 C 78 16 116/78 98 08/24/20 03:25 08/24/20 03:25 08/24/20 03:25 08/24/20 03:25 08/24/20 03:25 Oxygen Flow Rate (L/min) [4] 2 Oxygen Flow Rate (L/min) [3] 4 Oxygen Flow Rate (L/min) [2] 4 Oxygen Flow Rate (L/min) [1 ( 2 Initial Baseline)] Oxygen Flow Rate (L/min) 2 Oxygen Delivery Method [4] Nasal Cannula Oxygen Delivery Method [3] Nasal Cannula Oxygen Delivery Method [2] Nasal Cannula Oxygen Delivery Method [1 ( Room Air Initial Baseline)] Oxygen Delivery Method Room Air Weight: 73.7 kg Body Mass Index (BMI) 23.8 Intake and Output for Last 24 Hours 08/22/20 08/23/20 08/24/20 23:59 23:59 23:59 Intake Total 6945.66 / 6945.66 3158.25 / 3158.25 1065 / 1065 Output Total 1150 / 1150 1425 / 1425 400 / 400 Balance 5795.66 / 5795.66 1733.25 / 1733.25 665 / 665 Labs (Last 48 Hours) 08/22/20 08/22/20 08/22/20 05:15 12:06 20:07 WBC RBC Hgb Hct MCV MCH MCHC RDW Std Deviation RDW Coeff of Devi Plt Count MPV Immature Gran % (Auto) Neut % (Auto) Lymph % (Auto) [place] % (Auto) Eos % (Auto) Baso % (Auto) Absolute Neuts (auto) Absolute Lymphs (auto) Nucleated RBC % Sodium Potassium Chloride Carbon Dioxide Anion Gap BUN Creatinine Estim Creat Clear Calc Est GFR (MDRD) Af Amer Est GFR (MDRD) Non-Af BUN/Creatinine Ratio Glucose Hemoglobin A1c 10.6 H Calcium Total Bilirubin AST ALT Alkaline Phosphatase Total Protein Albumin Globulin Albumin/Globulin Ratio Vancomycin Trough POC Glucose 253 H 185 H 08/22/20 08/23/20 08/23/20 23:32 05:46 05:57 WBC 15.8 H RBC 2.98 L Hgb 8.6 L Hct 27.0 L MCV 90.6 MCH 28.9 MCHC 31.9 L RDW Std Deviation 50.1 H RDW Coeff of Devi 15.1 H Plt Count 116 L MPV 11.4 Immature Gran % (Auto) 0.800 Neut % (Auto) 88.2 H Lymph % (Auto) 6.6 L [place] % (Auto) 4.1 Eos % (Auto) 0.1 Baso % (Auto) 0.2 Absolute Neuts (auto) 13.9 H Absolute Lymphs (auto) 1.04 Nucleated RBC % 0 Sodium Potassium Chloride Carbon Dioxide Anion Gap BUN Creatinine Estim Creat Clear Calc Est GFR (MDRD) Af Amer Est GFR (MDRD) Non-Af BUN/Creatinine Ratio Glucose Hemoglobin A1c Calcium Total Bilirubin AST ALT Alkaline Phosphatase Total Protein Albumin Globulin Albumin/Globulin Ratio Vancomycin Trough POC Glucose 171 H 199 H 08/23/20 08/23/20 08/23/20 05:57 11:41 12:47 WBC RBC Hgb Hct MCV MCH MCHC RDW Std Deviation RDW Coeff of Devi Plt Count MPV Immature Gran % (Auto) Neut % (Auto) Lymph % (Auto) [place] % (Auto) Eos % (Auto) Baso % (Auto) Absolute Neuts (auto) Absolute Lymphs (auto) Nucleated RBC % Sodium 140 Potassium 3.6 Chloride 110 H Carbon Dioxide 24.0 Anion Gap 6 BUN 10 Creatinine 0.43 L Estim Creat Clear Calc 131.91 Est GFR (MDRD) Af Amer 189 Est GFR (MDRD) Non-Af 156 BUN/Creatinine Ratio 23.0 H Glucose 192 H Hemoglobin A1c Calcium 7.5 L Total Bilirubin 0.90 AST 32 ALT 21 Alkaline Phosphatase 175 H Total Protein 5.6 L Albumin 1.9 L Globulin 3.7 Albumin/Globulin Ratio 0.5 L Vancomycin Trough 9.7 POC Glucose 254 H 08/23/20 08/24/20 08/24/20 17:08 00:18 05:23 WBC 10.5 RBC 2.85 L Hgb 8.2 L Hct 25.4 L MCV 89.1 MCH 28.8 MCHC 32.3 RDW Std Deviation 49.9 H RDW Coeff of Devi 15.4 H Plt Count 126 L MPV 10.7 Immature Gran % (Auto) 0.700 Neut % (Auto) 84.4 H Lymph % (Auto) 9.1 L [place] % (Auto) 5.1 Eos % (Auto) 0.4 Baso % (Auto) 0.3 Absolute Neuts (auto) 8.9 H Absolute Lymphs (auto) 0.95 Nucleated RBC % 0 Sodium Potassium Chloride Carbon Dioxide Anion Gap BUN Creatinine Estim Creat Clear Calc Est GFR (MDRD) Af Amer Est GFR (MDRD) Non-Af BUN/Creatinine Ratio Glucose Hemoglobin A1c Calcium Total Bilirubin AST ALT Alkaline Phosphatase Total Protein Albumin Globulin Albumin/Globulin Ratio Vancomycin Trough POC Glucose 169 H 162 H 08/24/20 08/24/20 05:23 06:15 WBC RBC Hgb Hct MCV MCH MCHC RDW Std Deviation RDW Coeff of Devi Plt Count MPV Immature Gran % (Auto) Neut % (Auto) Lymph % (Auto) [place] % (Auto) Eos % (Auto) Baso % (Auto) Absolute Neuts (auto) Absolute Lymphs (auto) Nucleated RBC % Sodium 139 Potassium 3.7 Chloride 106 Carbon Dioxide 29.0 Anion Gap 4 L BUN 8 Creatinine 0.53 L Estim Creat Clear Calc 107.03 Est GFR (MDRD) Af Amer 149 Est GFR (MDRD) Non-Af 123 BUN/Creatinine Ratio 15.0 Glucose 180 H Hemoglobin A1c Calcium 7.7 L Total Bilirubin 0.90 AST 18 ALT 17 Alkaline Phosphatase 154 H Total Protein 5.7 L Albumin 2.0 L Globulin 3.7 Albumin/Globulin Ratio 0.5 L Vancomycin Trough POC Glucose 192 H Microbiology 08/22/20 01:53 Other - Randy Cath Miscellaneous Culture - Preliminary Streptococcus agalactiae (B) 08/22/20 01:53 Other - Randy Cath Gram Stain - Final 08/22/20 01:53 Abs - Chest Gram Stain - Final 08/22/20 01:53 Abs - Chest Wound Culture - Preliminary Streptococcus agalactiae (B) 08/21/20 23:45 Blood Culture (Wb) - Anticubital Left Bacteria Detection (PCR) - Final Streptococcus agalactiae (B) 08/21/20 23:45 Blood Culture (Wb) - Anticubital Left Blood Culture - Preliminary 08/22/20 00:45 Blood Culture (Wb) - Right Hand Blood Culture - Preliminary Medical Necessity - Tobacco Use Smoking Status: Current every day smoker Tobacco Use: Cigarettes Assessment/Plan All Active Problems (Last Updated 08/22/20 @ 13:[address] Jania Torres MD) Acute cholecystitis (Acute) Bacteremia (Acute) Septic shock (Acute) RECOMMENDATIONS: 1. Okay to continue with clears per surgery 2. Antibiotics per infectious disease 3. Patient may require PICC line to facilitate long-term IV antibiotics 4. Okay to discontinue Alarcon catheter from my perspective 5. Cover with sliding scale insulin 6. Hemodynamically stable on room air. Will sign off from a critical care perspective IMPRESSIONS: 1. Septic shock secondary to infected port Port was present on presentation with noted purulent material. Port has subsequently been removed, but blood cultures are already showing Streptococcus and echocardiogram is suggestive of vegetation. Patient currently on appropriate antibiotics. Defer to infectious disease on possible placement of a PICC line with long-term antibiotics. 2. Metabolic versus toxic encephalopathy Resolved. Patient reportedly has had issues with amphetamines in the past. Patient will be given Haldol as necessary to avoid complications associated with pulling out supportive devices. Continue with delirium protocol. 3. Diabetes mellitus type 2 uncontrolled Clinical suspicion for high endogenous steroid release secondary to problem #1. Will cover with sliding scale insulin. Patient will likely not be able to tolerate a significant diet at this time. Initial hypokalemia likely secondary to resolution of acidosis more than acute losses. This can be supplemented. 4. Poor history/poor follow-up/tobacco abuse/COPD Complicates care, management, recovery and prognosis. Patient is reportedly a full code. We will continue to monitor closely. SCDs have been added for DVT prophylaxis as patient does have a high risk of need for invasive procedures. Can use as needed bronchodilators if necessary. Patient with significant obstruction on previous PFT. Anticipate this is worse given continued tobacco abuse. Patient can follow-up with us as an outpatient only if requesting work-up for COPD. Inpatient E&M: 59831 Subs Hosp L2
--- NOTE | 2020-08-24 07:47 | PN.SURG_ITS ---
Patient Problems: Active and Suspected Problems (Last Updated 08/22/20 @ 13:[address] Jania Torres MD) Bacteremia (Acute) Septic shock (Acute) Subjective: Patient reports no abdominal pain she is only having lower left back pain. She had no nausea or vomiting with clear liquids. - Physical Exam Vitals/I&O's: Vital Signs Temp Pulse Resp BP Pulse Ox 97.9 F 78 16 116/78 98 08/24/20 03:25 08/24/20 03:25 08/24/20 03:25 08/24/20 03:25 08/24/20 03:25 Oxygen Flow Rate (L/min) [4] 2 Oxygen Flow Rate (L/min) [3] 4 Oxygen Flow Rate (L/min) [2] 4 Oxygen Flow Rate (L/min) [1 ( 2 Initial Baseline)] Oxygen Flow Rate (L/min) 2 Oxygen Delivery Method [4] Nasal Cannula Oxygen Delivery Method [3] Nasal Cannula Oxygen Delivery Method [2] Nasal Cannula Oxygen Delivery Method [1 ( Room Air Initial Baseline)] Oxygen Delivery Method Room Air Weight: 162 lb 7.691 oz Body Mass Index (BMI) 23.8 Intake and Output for Last 24 Hours 08/22/20 08/23/20 08/24/20 23:59 23:59 23:59 Intake Total 6945.66 / 6945.66 3158.25 / 3158.25 1065 / 1065 Output Total 1150 / 1150 1425 / 1425 400 / 400 Balance 5795.66 / 5795.66 1733.25 / 1733.25 665 / 665 General: Alert, Cooperative Neck: No JVD Lungs: Normal air movement Cardiovascular: Regular rate, Regular Rhythm Abdomen: Soft, Non Tender, Non-Distended Microbiology Past 72 Hours 08/21/20 23:45 Blood Culture (Wb) - Anticubital Left Bacteria Detection (PCR) - Final Streptococcus agalactiae (B) 08/21/20 23:45 Blood Culture (Wb) - Anticubital Left Blood Culture - Final Streptococcus agalactiae (B) 08/22/20 01:53 Other - Randy Cath Miscellaneous Culture - Preliminary Streptococcus agalactiae (B) 08/22/20 01:53 Other - Randy Cath Gram Stain - Final 08/22/20 01:53 Abs - Chest Gram Stain - Final 08/22/20 01:53 Abs - Chest Wound Culture - Preliminary Streptococcus agalactiae (B) 08/22/20 00:45 Blood Culture (Wb) - Right Hand Blood Culture - Preliminary 08/22/20 00:10 Mucosa - Nose SARS-CoV-2 Antigen (Rapid) - Final Laboratory Results 08/23/20 11:41: POC Glucose 254 H 08/23/20 12:47: Vancomycin Trough 9.7 08/23/20 17:08: POC Glucose 169 H 08/24/20 00:18: POC Glucose 162 H 08/24/20 05:23: WBC 10.5, RBC 2.85 L, Hgb 8.2 L, Hct 25.4 L, MCV 89.1, MCH 28.8, MCHC 32.3, RDW Std Deviation 49.9 H, RDW Coeff of Devi 15.4 H, Plt Count 126 L, MPV 10.7, Immature Gran % (Auto) 0.700, Neut % (Auto) 84.4 H, Lymph % (Auto) 9.1 L, [place] % (Auto) 5.1, Eos % (Auto) 0.4, Baso % (Auto) 0.3, Absolute Neuts (auto) 8.9 H, Absolute Lymphs (auto) 0.95, Nucleated RBC % 0 08/24/20 05:23: Sodium 139, Potassium 3.7, Chloride 106, Carbon Dioxide 29.0, Anion Gap 4 L, BUN 8, Creatinine 0.53 L, Estim Creat Clear Calc 107.03, Est GFR (MDRD) Af Amer 149, Est GFR (MDRD) Non-Af 123, BUN/Creatinine Ratio 15.0, Glucose 180 H, Calcium 7.7 L, Total Bilirubin 0.90, AST 18, ALT 17, Alkaline Phosphatase 154 H, Total Protein 5.7 L, Albumin 2.0 L, Globulin 3.7, Albumin/Globulin Ratio 0.5 L 08/24/20 06:15: POC Glucose 192 H Current Medications Acetaminophen (Acetaminophen 325 Mg Tablet) 650 mg PO Q6H PRN PRN PRN Reason: Pain 1-10 or Fever Last Admin: 08/24/20 03:27 Dose: 650 mg Documented by: Dextrose (Dextrose 50%-Water 25 Gm/50 Ml Disp.Syrin) 0 gm IV X1 PRN; Protocol PRN Reason: Hypoglycemia Enoxaparin Sodium (Enoxaparin 40 Mg/0.4 Ml Syringe) 40 mg SC DAILY [facility] Last Admin: 08/23/20 10:43 Dose: 40 mg Documented by: Glucagon (Glucagon 1 Mg/Ml Syringe) 1 mg IM .X1 PRN PRN Reason: Hypoglycemia Haloperidol Lactate (Haloperidol Lactate 5 Mg/Ml Vial) 5 mg IV Q6H PRN PRN PRN Reason: AGITATION Vancomycin IV Pharmacy to Dose (1 ea/ Sodium Chloride) 500 mls @ 250 mls/hr IV PRN PRN; Protocol PRN Reason: Rx to Dose Piperacillin Sod/Tazobactam (Sod 3.375 gm/ Sodium Chloride) 50 mls @ 12.5 mls/hr IV Q8 [facility] Last Admin: 08/24/20 06:10 Dose: 12.5 mls/hr Documented by: Sodium Chloride () 250 mls @ 15 mls/hr IV .[id number] PRN PRN Reason: Saline Flush Last Infusion: 08/23/20 17:32 Dose: 0 mls/hr Documented by: Vancomycin HCl 1,750 mg/ (Sodium Chloride) 535 mls @ 250 mls/hr IV Q12H [facility] Last Infusion: 08/24/20 04:30 Dose: Infused Documented by: Insulin Human Lispro (Insulin Lispro 100 Unit/Ml Insuln.Pen) 0 unit SC Q6H [facility]; Protocol Last Admin: 08/24/20 06:15 Dose: 2 units Documented by: Morphine Sulfate (Morphine 2 Mg/Ml Syringe) 2 mg IV Q4H PRN PRN PRN Reason: Pain Score 6-10 Last Admin: 08/24/20 06:10 Dose: 2 mg Documented by: Ondansetron HCl (Ondansetron 4 Mg/2 Ml Vial) 4 mg IV Q8H PRN PRN PRN Reason: NAUSEA/VOMITING Oxycodone HCl (Oxycodone 5 Mg Tablet) 5 mg PO Q4H PRN PRN PRN Reason: Pain Score 6-10 Last Admin: 08/24/20 03:27 Dose: 5 mg Documented by: Sodium Chloride (0.9% Saline Lock 10 Ml Syringe) 10 - 40 ml IV UD PRN PRN Reason: SALINE FLUSH Last Admin: 03/06/21 04:35 Dose: 10 ml Documented by: Medical Necessity - Tobacco Use Smoking Status: Current every day smoker Tobacco Use: Cigarettes Assessment/Plan All Active Problems (Last Updated 08/22/20 @ 13:[address] Jania Torres MD) Acute cholecystitis (Acute) Bacteremia (Acute) Septic shock (Acute) 60-year-old female with infected port site as well as bacteremia possible acute cholecystitis 1. Patient not reporting any abdominal pain or nausea or vomiting with clear liquids. I will advance her to full liquids and see how she tolerates this. If she has any increasing abdominal pain or nausea or vomiting I would recommend laparoscopic cholecystectomy tomorrow. Dr. Mendez will be back tomorrow in case that is needed. At this time the patient's white count is decreasing nicely and she is having no abdominal pain so I will trial a diet. Cesar Mendez MD Pager: [facility] [address] [place] [address], [address] [place] [address] Office:
[2020-08-24] MEDS: Enoxaparin 40 MG/0.4 ML Syringe SC (08:03)
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
[2020-08-24] MEDS: 0.9% Saline Lock 10 ML Syringe IV (10:53)
[2020-08-24 11:01] LABS: Bedside Glucose 298 mg/dL (70-110)
[2020-08-24 16:16] LABS: Bedside Glucose 288 mg/dL (70-110)
[2020-08-24 21:55] LABS: Bedside Glucose 164 mg/dL (70-110)
[2020-08-25] VITALS (11 sets, daily range): BP systolic 109–155; BP diastolic 74–88; PULSE 70–92; RESP 16–18; TEMP 36.4–36.9; O2SAT 92–100; BMI 25.4
[2020-08-25] MEDS: oxyCODONE 5 MG Tablet PO ×4 (03:10→23:54)
[2020-08-25] MEDS: Acetaminophen 325 MG Tablet 650 MG PO ×3 (03:10→21:17)
[2020-08-25 05:05] LABS: Hematocrit 23.8 % (37-47); Hemoglobin 7.8 g/dL (12.0-15.0)
[2020-08-25] MEDS: Morphine 2 MG/ML Syringe IV ×3 (06:32→17:57)
[2020-08-25 07:05] LABS: Bedside Glucose 143 mg/dL (70-110)
--- NOTE | 2020-08-25 09:10 | NM_ITS ---
CLINICAL: 60-year-old female with reported history of cholelithiasis and current complaint of abdominal pain. RADIONUCLIDE HEPATOBILIARY SCINTIGRAPHY COMPARISON: CT of the abdomen-pelvis and abdominal ultrasound reports 08/22/2020 FINDINGS: Following the intravenous administration of 5.3 mCi of 99m Tc Mebrofenin, hepatobiliary images reveal: 1. Relatively prompt and homogeneous radiopharmaceutical concentration is noted by the liver parenchyma. No parenchymal defects are identified. 2. Gallbladder activity is identified at 18 minutes post radiopharmaceutical administration. 3. Small intestinal tract is observed at 30 minutes post radiopharmaceutical administration. 4. Washout of the radiopharmaceutical by the hepatic parenchyma appears qualitatively normal. 5. There is visualized scintigraphic evidence of duodenal-gastric reflux. NM/Hepatobilliary Imaging IMPRESSION: 1. Visualization of the gallbladder within 60 minutes post radiopharmaceutical administration excludes acute cholecystitis with 97% certitude. (Meera et al, Nucl Med Yolie Niesha Press pg. 35, 1980). 2. Duodenal-gastric reflux is defined as described above. Electronically Signed: Genaro De La Rosa DO at 13:01 EST Tel , Service support ,
--- NOTE | 2020-08-25 09:11 | PCM.PN.SRG ---
Patient Problems: Active and Suspected Problems (Last Updated 08/22/20 @ 13:[address] Jania Torres MD) Bacteremia (Acute) Septic shock (Acute) Subjective: Of left-sided back pain denies any right-sided back pain or abdominal pain. Denies any increased pain with eating full liquids. However CT pelvis and ultrasound did show some pericholecystic fluid patient's never had right upper quadrant abdominal pain. - Physical Exam Vitals/I&O's: Vital Signs Temp Pulse Resp BP Pulse Ox 98.0 F 84 18 155/88 H 98 08/25/20 08:17 08/25/20 08:17 08/25/20 08:17 08/25/20 08:17 08/25/20 08:17 Oxygen Flow Rate (L/min) [4] 2 Oxygen Flow Rate (L/min) [3] 4 Oxygen Flow Rate (L/min) [2] 4 Oxygen Flow Rate (L/min) [1 ( 2 Initial Baseline)] Oxygen Flow Rate (L/min) 2 Oxygen Delivery Method [4] Nasal Cannula Oxygen Delivery Method [3] Nasal Cannula Oxygen Delivery Method [2] Nasal Cannula Oxygen Delivery Method [1 ( Room Air Initial Baseline)] Oxygen Delivery Method Room Air Weight: 162 lb 4.163 oz Body Mass Index (BMI) 23.8 Intake and Output for Last 24 Hours 08/23/20 08/24/20 08/25/20 23:59 23:59 23:59 Intake Total 3158.25 / 3158.25 2215.25 / 2215.25 50 / 50 Output Total 1425 / 1425 400 / 400 400 / 400 Balance 1733.25 / 1733.25 1815.25 / 1815.25 -350 / -350 General: Alert, Cooperative, No apparent distress Lungs: Normal air movement Cardiovascular: Regular rate Abdomen: Soft, Non Tender, Non-Distended Microbiology Past 72 Hours 08/22/20 01:53 Other - Randy Cath Miscellaneous Culture - Final Streptococcus agalactiae (B) 08/22/20 01:53 Other - Randy Cath Gram Stain - Final 08/22/20 01:53 Abs - Chest Gram Stain - Final 08/22/20 01:53 Abs - Chest Wound Culture - Final Streptococcus agalactiae (B) 08/22/20 00:45 Blood Culture (Wb) - Right Hand Blood Culture - Final Streptococcus agalactiae (B) 08/21/20 23:45 Blood Culture (Wb) - Anticubital Left Bacteria Detection (PCR) - Final Streptococcus agalactiae (B) 08/21/20 23:45 Blood Culture (Wb) - Anticubital Left Blood Culture - Final Streptococcus agalactiae (B) Laboratory Results 08/24/20 10:56: POC Glucose 298 H 08/24/20 16:08: POC Glucose 288 H 08/24/20 20:57: POC Glucose 164 H 08/25/20 04:56: Hgb 7.8 L, Hct 23.8 L 08/25/20 06:35: POC Glucose 143 H Current Medications Acetaminophen (Acetaminophen 325 Mg Tablet) 650 mg PO Q6H PRN PRN PRN Reason: Pain 1-10 or Fever Last Admin: 08/25/20 03:10 Dose: 650 mg Documented by: Dextrose (Dextrose 50%-Water 25 Gm/50 Ml Disp.Syrin) 0 gm IV X1 PRN; Protocol PRN Reason: Hypoglycemia Enoxaparin Sodium (Enoxaparin 40 Mg/0.4 Ml Syringe) 40 mg SC DAILY [facility] Last Admin: 08/24/20 08:03 Dose: 40 mg Documented by: Glucagon (Glucagon 1 Mg/Ml Syringe) 1 mg IM .X1 PRN PRN Reason: Hypoglycemia Haloperidol Lactate (Haloperidol Lactate 5 Mg/Ml Vial) 5 mg IV Q6H PRN PRN PRN Reason: AGITATION Piperacillin Sod/Tazobactam (Sod 3.375 gm/ Sodium Chloride) 50 mls @ 12.5 mls/hr IV Q8 [facility] Last Admin: 08/25/20 06:32 Dose: 12.5 mls/hr Documented by: Sodium Chloride () 250 mls @ 15 mls/hr IV .[id number] PRN PRN Reason: Saline Flush Last Infusion: 08/24/20 13:33 Dose: 0 mls/hr Documented by: Insulin Human Lispro (Insulin Lispro 100 Unit/Ml Insuln.Pen) 0 unit SC [facility] ON [facility]; Protocol Last Admin: 08/25/20 06:36 Dose: Not Given Documented by: Morphine Sulfate (Morphine 2 Mg/Ml Syringe) 2 mg IV Q4H PRN PRN PRN Reason: Pain Score 6-10 Last Admin: 08/25/20 06:32 Dose: 2 mg Documented by: Ondansetron HCl (Ondansetron 4 Mg/2 Ml Vial) 4 mg IV Q8H PRN PRN PRN Reason: NAUSEA/VOMITING Oxycodone HCl (Oxycodone 5 Mg Tablet) 5 mg PO Q4H PRN PRN PRN Reason: Pain Score 6-10 Last Admin: 08/25/20 03:10 Dose: 5 mg Documented by: Sodium Chloride (0.9% Saline Lock 10 Ml Syringe) 10 - 40 ml IV UD PRN PRN Reason: SALINE FLUSH Last Admin: 08/24/20 10:53 Dose: 20 ml Documented by: Medical Necessity - Tobacco Use Smoking Status: Current every day smoker Tobacco Use: Cigarettes Assessment/Plan All Active Problems (Last Updated 08/22/20 @ 13:[address] Jania Torres MD) Acute cholecystitis (Acute) Bacteremia (Acute) Septic shock (Acute) 60-year-old female-infected right IJ Port-A-Cath, cholecystitis, sepsis 1. Continue changes of gauze daily. Blood cultures pending 2. HIDA scan without CCK. If it is positive patient will get a cholecystostomy tube as it has been inflamed for quite a while and would make the surgery much more difficult this time. 3. Continue antibiotics per ID Addendum: HIDA scan without CCK showed activity in the gallbladder at 16 minutes no evidence for acute cholecystitis.Okay for diet. No plans for cholecystostomy tube. Julia Mendez M.D. Pager: [phone] [facility] [address] [place] [address], Outpatient [place], [address] [place] [address] Office: [phone] Inpatient E&M: 54511 [facility] L3
--- NOTE | 2020-08-25 09:17 | NURSING ---
pt on phone with son, pt request to start process for transfer to another hospital. Staff inquired about why pt wanted transferred and pt stated so my family can come see me This nurse spoke with pt at length while son was on the phone about hospital policy regarding Covid and visitors. pt expressed understanding but tearful. pt stated He's never even been to the floor he had an emergency and can't come see me. This nurse spoke with oyster grower and manager of internal about pt request for visitor change and approval given. This nurse explained to pt approval to change visitor. pt stated sister would be her visitor. This nurse asked pt to call and verify sister would be able to be her support person. pt called Tate frazier spoke with this nurse about visitor change and verified she would be able to be pt support for rest of this hospital stay. Pt and sister expressed understanding about change and thankful to staff. This nurse asked pt if she wanted staff to speak with son about change to visitor but stated she would call her son. pt resting in bed call light within reach. oyster grower updated.
--- NOTE | 2020-08-25 10:51 | PN.ID_ITS ---
Patient Problems: Active and Suspected Problems (Last Updated 08/22/20 @ 13:[address] Jania Torres MD) Bacteremia (Acute) Septic shock (Acute) Subjective: Feeling ok, c/o pain in L flank, no fever - Physical Exam Vitals/I&O's: Vital Signs Temp Pulse Resp BP Pulse Ox 98.0 F 84 18 155/88 H 98 08/25/20 08:17 08/25/20 08:17 08/25/20 08:17 08/25/20 08:17 08/25/20 08:17 Oxygen Flow Rate (L/min) [4] 2 Oxygen Flow Rate (L/min) [3] 4 Oxygen Flow Rate (L/min) [2] 4 Oxygen Flow Rate (L/min) [1 ( 2 Initial Baseline)] Oxygen Flow Rate (L/min) 2 Oxygen Delivery Method [4] Nasal Cannula Oxygen Delivery Method [3] Nasal Cannula Oxygen Delivery Method [2] Nasal Cannula Oxygen Delivery Method [1 ( Room Air Initial Baseline)] Oxygen Delivery Method Room Air Weight: 73.6 kg Body Mass Index (BMI) 23.8 Intake and Output for Last 24 Hours 08/23/20 08/24/20 08/25/20 23:59 23:59 23:59 Intake Total 3158.25 / 3158.25 2215.25 / 2215.25 50 / 50 Output Total 1425 / 1425 400 / 400 400 / 400 Balance 1733.25 / 1733.25 1815.25 / 1815.25 -350 / -350 General: Alert, Cooperative Lungs: Clear to auscultation, Normal air movement Cardiovascular: Regular rate, Regular Rhythm Abdomen: Soft, Non Tender, Non-Distended, - - mild L flank pain Skin: No rashes Microbiology Past 72 Hours 08/22/20 01:53 Other - Randy Cath Miscellaneous Culture - Final Streptococcus agalactiae (B) 08/22/20 01:53 Other - Randy Cath Gram Stain - Final 08/22/20 01:53 Abs - Chest Gram Stain - Final 08/22/20 01:53 Abs - Chest Wound Culture - Final Streptococcus agalactiae (B) 08/22/20 00:45 Blood Culture (Wb) - Right Hand Blood Culture - Final Streptococcus agalactiae (B) 08/21/20 23:45 Blood Culture (Wb) - Anticubital Left Bacteria Detection (PCR) - Final Streptococcus agalactiae (B) 08/21/20 23:45 Blood Culture (Wb) - Anticubital Left Blood Culture - Final Streptococcus agalactiae (B) Laboratory Results 08/24/20 10:56: POC Glucose 298 H 08/24/20 16:08: POC Glucose 288 H 08/24/20 20:57: POC Glucose 164 H 08/25/20 04:56: Hgb 7.8 L, Hct 23.8 L 08/25/20 06:35: POC Glucose 143 H Current Medications Acetaminophen (Acetaminophen 325 Mg Tablet) 650 mg PO Q6H PRN PRN PRN Reason: Pain 1-10 or Fever Last Admin: 08/25/20 03:10 Dose: 650 mg Documented by: Dextrose (Dextrose 50%-Water 25 Gm/50 Ml Disp.Syrin) 0 gm IV X1 PRN; Protocol PRN Reason: Hypoglycemia Enoxaparin Sodium (Enoxaparin 40 Mg/0.4 Ml Syringe) 40 mg SC DAILY [facility] Last Admin: 08/24/20 08:03 Dose: 40 mg Documented by: Glucagon (Glucagon 1 Mg/Ml Syringe) 1 mg IM .X1 PRN PRN Reason: Hypoglycemia Haloperidol Lactate (Haloperidol Lactate 5 Mg/Ml Vial) 5 mg IV Q6H PRN PRN PRN Reason: AGITATION Piperacillin Sod/Tazobactam (Sod 3.375 gm/ Sodium Chloride) 50 mls @ 12.5 mls/hr IV Q8 [facility] Last Admin: 08/25/20 06:32 Dose: 12.5 mls/hr Documented by: Sodium Chloride () 250 mls @ 15 mls/hr IV .[id number] PRN PRN Reason: Saline Flush Last Infusion: 08/24/20 13:33 Dose: 0 mls/hr Documented by: Insulin Human Lispro (Insulin Lispro 100 Unit/Ml Insuln.Pen) 0 unit SC ACHS [facility]; Protocol Last Admin: 08/25/20 06:36 Dose: Not Given Documented by: Morphine Sulfate (Morphine 2 Mg/Ml Syringe) 2 mg IV Q4H PRN PRN PRN Reason: Pain Score 6-10 Last Admin: 08/25/20 06:32 Dose: 2 mg Documented by: Ondansetron HCl (Ondansetron 4 Mg/2 Ml Vial) 4 mg IV Q8H PRN PRN PRN Reason: NAUSEA/VOMITING Oxycodone HCl (Oxycodone 5 Mg Tablet) 5 mg PO Q4H PRN PRN PRN Reason: Pain Score 6-10 Last Admin: 08/25/20 03:10 Dose: 5 mg Documented by: Sodium Chloride (0.9% Saline Lock 10 Ml Syringe) 10 - 40 ml IV UD PRN PRN Reason: SALINE FLUSH Last Admin: 08/24/20 10:53 Dose: 20 ml Documented by: Medical Necessity - Tobacco Use Smoking Status: Current every day smoker Tobacco Use: Cigarettes Route of nutrition/ use of supplements: [] Nutritional Intake: [] IV Site: [] Alarcon Catheter: [] - Assessment/Plan Antibiotics: [] Assessment/Plan: [] Active and Suspected Problems (Last Updated 08/22/20 @ 13:[address] Jania Torres MD) Septic shock (Acute) septic shock due to GBS bacteremia per pcr with infected port and suspected cholecystitis - pt denies abd pain, nontender on exam this AM. Port removed by Dr. Mendez 08/22. Fever improved, remains on pressor. Tox screen neg. Cont zosyn, stopped vanc. TTE with possible veg on eustacian valve. HIDA pending. Recommend SHABANA. Will follow
--- NOTE | 2020-08-25 12:51 | PN_ITS ---
Patient Problems: Active and Suspected Problems (Last Updated 08/22/20 @ 13:[address] Jania Torres MD) Bacteremia (Acute) Septic shock (Acute) Subjective: Patient seen and examined. She still complains of lower back pain. Review of systems is otherwise negative. She has remained hemodynamically stable. Repeat blood cultures are pending. Vitals/I&O's: Vital Signs Temp Pulse Resp BP Pulse Ox 98.0 F 92 18 155/88 H 98 08/25/20 08:17 08/25/20 10:59 08/25/20 08:17 08/25/20 08:17 08/25/20 08:17 Oxygen Flow Rate (L/min) [4] 2 Oxygen Flow Rate (L/min) [3] 4 Oxygen Flow Rate (L/min) [2] 4 Oxygen Flow Rate (L/min) [1 ( 2 Initial Baseline)] Oxygen Flow Rate (L/min) 2 Oxygen Delivery Method [4] Nasal Cannula Oxygen Delivery Method [3] Nasal Cannula Oxygen Delivery Method [2] Nasal Cannula Oxygen Delivery Method [1 ( Room Air Initial Baseline)] Oxygen Delivery Method Room Air Weight: 162 lb 4.163 oz Body Mass Index (BMI) 23.8 Intake and Output for Last 24 Hours 08/23/20 08/24/20 08/25/20 23:59 23:59 23:59 Intake Total 3158.25 / 3158.25 2215.25 / 2215.25 340 / 340 Output Total 1425 / 1425 400 / 400 400 / 400 Balance 1733.25 / 1733.25 1815.25 / 1815.25 -60 / -60 General: Alert, Cooperative, No apparent distress HEENT: Atraumatic, PERRLA, EOMI, Normocephalic Oral: Dry Mucosa Neck: Supple, No JVD, Negative Carotid Bruits Lungs: Clear to auscultation, Normal air movement, No rhonchi, No wheeze, No rales Cardiovascular: Regular rate, Regular Rhythm, Normal S1, Normal S2, No murmurs Abdomen: Bowel Sounds Present, Soft, Non Tender Extremities: No clubbing, No cyanosis, No edema, Capillary Refill Less than 3 Seconds Skin: No rashes, No breakdown Musculoskeletal: No Tenderness to Palpation of Joints or Extremities Lymphatic: No Cervical, Supraclavicular, or Inguinal Adenopathy Neurological: Cranial nerves II-XII grossly intact, Neuro grossly intact, Motor Exam 5/5 strength throughout Psych/Mental Status: Normal Affect, Appropriate, Alert and oriented to time, place, person, mood and affect Microbiology Past 72 Hours 08/22/20 01:53 Other - Randy Cath Miscellaneous Culture - Final Streptococcus agalactiae (B) 08/22/20 01:53 Other - Randy Cath Gram Stain - Final 08/22/20 01:53 Abs - Chest Gram Stain - Final 08/22/20 01:53 Abs - Chest Wound Culture - Final Streptococcus agalactiae (B) 08/22/20 00:45 Blood Culture (Wb) - Right Hand Blood Culture - Final Streptococcus agalactiae (B) 08/21/20 23:45 Blood Culture (Wb) - Anticubital Left Bacteria Detection (PCR) - Final Streptococcus agalactiae (B) 08/21/20 23:45 Blood Culture (Wb) - Anticubital Left Blood Culture - Final Streptococcus agalactiae (B) Laboratory Results 08/24/20 16:08: POC Glucose 288 H 08/24/20 20:57: POC Glucose 164 H 08/25/20 04:56: Hgb 7.8 L, Hct 23.8 L 08/25/20 06:35: POC Glucose 143 H Diagnostic Data Abdomen Ultrasound 08/22/20 05:55 IMPRESSION: Hepatomegaly and fatty infiltration of the liver. Small amount of perihepatic fluid. Multiple gallstones with thickened gallbladder wall and small amount of pericholecystic fluid. Findings in keeping with acute cholecystitis. Electronically Signed: Yariel Cool MD at 8:58 EST , Service support , Chest X-Ray 08/22/20 06:18 IMPRESSION: The portacatheter has been removed. I suspect a tiny right apical pneumothorax. Increased markings in the right lung suggests a mild degree of vascular congestion. Electronically Signed: Yariel Cool MD at 8:02 EST , Service support , Lumbar Spine MRI 08/22/20 14:41 IMPRESSION: 1. Degenerative changes. 2. Moderate L4-L5, mild L3-L4 thecal sac stenosis. 3. No spinal infection on noncontrast MR. Electronically Signed: Ashely Peterson MD at 20:38 EST Tel , Service support , Thoracic Spine MRI 08/22/20 14:41 IMPRESSION: 1. Technically suboptimal exam. 2. Degenerative changes. 3. No spinal infection on noncontrast exam. 4. Bilateral pleural effusions. Electronically Signed: Ashely Peterson MD at 20:34 EST Tel , Service support , Brain CT 08/22/20 23:30 IMPRESSION: Chronic involutional changes of the brain. Electronically Signed: Jim Meier DO at 0:53 EST Tel , Service support , Abdomen/Pelvis CT 08/22/20 23:31 IMPRESSION: 1. Gallstones with prominent pericholecystic fluid and gallbladder wall thickening as well as dilated common bile duct. Findings are concerning for acute cholecystitis 2. No evidence to suggest colitis or acute diverticulitis 3. Lung bases are clear Electronically Signed: Jim Meier DO at 0:55 EST Tel , Service support , Current Medications Acetaminophen (Acetaminophen 325 Mg Tablet) 650 mg PO Q6H PRN PRN PRN Reason: Pain 1-10 or Fever Last Admin: 08/25/20 03:10 Dose: 650 mg Documented by: Dextrose (Dextrose 50%-Water 25 Gm/50 Ml Disp.Syrin) 0 gm IV X1 PRN; Protocol PRN Reason: Hypoglycemia Enoxaparin Sodium (Enoxaparin 40 Mg/0.4 Ml Syringe) 40 mg SC DAILY [facility] Last Admin: 08/24/20 08:03 Dose: 40 mg Documented by: Glucagon (Glucagon 1 Mg/Ml Syringe) 1 mg IM .X1 PRN PRN Reason: Hypoglycemia Haloperidol Lactate (Haloperidol Lactate 5 Mg/Ml Vial) 5 mg IV Q6H PRN PRN PRN Reason: AGITATION Piperacillin Sod/Tazobactam (Sod 3.375 gm/ Sodium Chloride) 50 mls @ 12.5 mls/hr IV Q8 RAHEEM Last Infusion: 08/25/20 10:32 Dose: Infused Documented by: Sodium Chloride () 250 mls @ 15 mls/hr IV .[id number] PRN PRN Reason: Saline Flush Last Infusion: 08/24/20 13:33 Dose: 0 mls/hr Documented by: Insulin Human Lispro (Insulin Lispro 100 Unit/Ml Insuln.Pen) 0 unit SC ACHS [facility]; Protocol Last Admin: 08/25/20 06:36 Dose: Not Given Documented by: Morphine Sulfate (Morphine 2 Mg/Ml Syringe) 2 mg IV Q4H PRN PRN PRN Reason: Pain Score 6-10 Last Admin: 08/25/20 06:32 Dose: 2 mg Documented by: Ondansetron HCl (Ondansetron 4 Mg/2 Ml Vial) 4 mg IV Q8H PRN PRN PRN Reason: NAUSEA/VOMITING Oxycodone HCl (Oxycodone 5 Mg Tablet) 5 mg PO Q4H PRN PRN PRN Reason: Pain Score 6-10 Last Admin: 08/25/20 03:10 Dose: 5 mg Documented by: Sodium Chloride (0.9% Saline Lock 10 Ml Syringe) 10 - 40 ml IV UD PRN PRN Reason: SALINE FLUSH Last Admin: 08/24/20 10:53 Dose: 20 ml Documented by: STROKE Vital Signs/Narrative: Vital Signs Pulse 08/25/20 10:59 92 Medical Necessity - Tobacco Use Smoking Status: Current every day smoker Tobacco Use: Cigarettes Assessment/Plan All Active Problems (Last Updated 08/22/20 @ 13:[address] Jania Torres MD) Acute cholecystitis (Acute) Bacteremia (Acute) Septic shock (Acute) #Septic shock * due to infected port and cholecystitis * general surgery and ID on board. on IV vancomycin and zosyn * infected port removed. * blood cultures positive for Strep agalactiae. Repeat cultures pending. * #Acute cholecystitis: * had HIDA scan today; read is pending. general surgery on board * CT of the abdomen and pelvis and [facility] abdomen both showed acute cholecystitis * liver enzymes are WL * HIDA scan read pending. #Strep agalactiae bacteremia: repeat cultures pending. source was the port. on IV vancomycin nad zosyn. #Intractable back pain * lumbar spine MRI showed L4-5 and L2-3 thecal sac stenosis. * PT/OT on board * fall precautions * #ANemia * Hb today is 7.8. Will trend * #Diffuse large B cell lymphoma * to follow up with oncology on outpatient basis * #Poorly controlled type 2 diabetes mellitus * Lantus on hold. A1c was 10.6. Insulin sliding scale. Dr. Maryjo TURCIOS at bedtime. #History of amphetamine abuse: counseled to quit DVT prophylaxis: lovenox Inpatient E&M: 18318 Subs Hosp L2
[2020-08-25] MEDS: 0.9% Saline Lock 10 ML Syringe IV ×4 (13:17→21:17)
[2020-08-25] MEDS: Insulin Lispro 100 UNIT/ML INSULN.PEN SC ×2 (13:25→16:38)
[2020-08-25] MEDS: Enoxaparin 40 MG/0.4 ML Syringe SC (13:27)
[2020-08-25 13:40] LABS: Bedside Glucose 177 mg/dL (70-110)
--- NOTE | 2020-08-25 16:26 | NURSING ---
pt sister asked about spending the night in pt room. this nurse explained that visiting hours are from 10a-6p at this time visitors are not allowed to spend the night. pt and family member expressed frustration.
--- NOTE | 2020-08-25 17:10 | ECHOTEE_ITS ---
Reason For Study: Endocarditis Medication SHABANA probe 6VT-D (SN [id number]) passed with minimal difficulty. No complications were noted. Cetacaine Topical [place] given X3 orally. Versed 3 mg given slow IVP. Fentanyl 50 mcg given slow IVP. Performed a rapid injection of agitated mix of 9 cc saline and 1cc air to assess for atrial septal defect. Left Ventricle Normal LV size. Left ventricular systolic function is normal. The estimated ejection fraction is 60 %. No regional wall motion abnormalities noted. Right Ventricle Normal RV size. Normal systolic function. The right ventricular wall motion is normal. Atria Normal atrial septum. The left atrium is mildly enlarged. Normal right atrium. Mobile mass of the right atrium. Mobile Mass noted measuring 2.5 cm by 1.8cm with peduncle attached to the atrial appendage. Mitral Valve Normal mitral valve. Mild (1+) eccentric mitral valve insufficiency. Tricuspid Valve Normal tricuspid valve. Aortic Valve Normal aortic valve. Trisinus/trileaflet aortic valve. Pulmonic Valve Normal pulmonic valve. Vessels Normal aortic root. The pulmonary artery is normal size. Pericardium No pericardial effusion. Interpretation Summary Normal LV size. Left ventricular systolic function is normal. The estimated ejection fraction is 60 %. Mobile Mass noted measuring 2.5 cm by 1.8cm with peduncle attached to the atrial appendage The left atrium is mildly enlarged. Ordering Physician: Randy Fletcher Referring Physician: Kiersten Esposito Performed By: Yin Harrison RDCS
[2020-08-25 17:20] LABS: Bedside Glucose 251 mg/dL (70-110)
[2020-08-25 21:31] LABS: Bedside Glucose 117 mg/dL (70-110)
[2020-08-26] VITALS (8 sets, daily range): BP systolic 122–141; BP diastolic 72–84; PULSE 67–84; RESP 16; TEMP 36.7–36.8; O2SAT 95–97
[2020-08-26] MEDS: oxyCODONE 5 MG Tablet PO ×2 (04:12→15:58)
[2020-08-26] MEDS: Acetaminophen 325 MG Tablet 650 MG PO (04:12)
[2020-08-26 06:28] LABS: Absolute Lymphocyte Count 0.88 X10^3/uL (0.83-4.51); Absolute Neutrophil Count 6.4 X10^3/uL (2.0-7.7); Basophil# 0.02 X10^3/uL; Basophil% 0.3 % (0-1); Eosinophil# 0.03 X10^3/uL; Eosinophils% 0.4 % (0-5); Hematocrit 22.6 % (37-47); Hemoglobin 7.4 g/dL (12.0-15.0); Lymphocyte # 0.88 X10^3/ul (4.0); Lymphocyte % 11.1 % (19-41); Mean Corp Hgb Conc 32.7 g/dL (32-36); Mean Corpuscular Hgb 28.9 pg (27.0-32.0); Mean Corpuscular Volume 88.3 fL (81-99); Mean Platelet Vol. 10.8 fl (6.2-12.0); Monocyte# 0.51 X10^3/uL; Monocyte% 6.4 % (0-10); NRBC Flagged by Analyzer 0 % (0-5); Neutrophil % 80.9 % (47-70); Platelet Count 154 K/mm3 (150-450); RBC Distribution Width CV 14.9 % (11.6-14.6); RBC Distribution Width SD 47.7 fl (35.1-43.9); Red Blood Count 2.56 M/mm3 (4.2-5.4); White Blood Count 7.9 K/mm3 (4.4-11.0)
[2020-08-26 06:46] LABS: Bedside Glucose 124 mg/dL (70-110)
[2020-08-26 06:56] LABS: Anion Gap 7 (5-15); BUN 7 mg/dL (7-18); BUN/Creat Ratio 11.6 RATIO (10-20); Calcium,Total 7.9 mg/dL (8.5-10.1); Chloride 102 mmol/L (98-107); EST Glomerular Filtration Rate 107 mL/min (>60); Est Glom Filt Rate - Afr Amer 130 mL/min (>60); Estimated Creatinine Clearance 94.54 ml/min; Glucose 117 mg/dL (74-106); Potassium 3.4 mmol/L (3.5-5.1); Sodium Level 137 mmol/L (136-145)
--- NOTE | 2020-08-26 09:55 | PCM.PN.SRG ---
Patient Problems: Active and Suspected Problems (Last Updated 08/22/20 @ 13:[address] Jania Torres MD) Bacteremia (Acute) Septic shock (Acute) Subjective: Patient states that she has right flank/back pain and her left-sided pain is gone. Patient has been n.p.o. this morning for SHABANA. - Physical Exam Vitals/I&O's: Vital Signs Temp Pulse Resp BP Pulse Ox 98.2 F 84 16 141/72 H 97 08/26/20 09:20 08/26/20 09:20 08/26/20 09:20 08/26/20 09:20 08/26/20 09:20 Oxygen Flow Rate (L/min) [4] 2 Oxygen Flow Rate (L/min) [3] 4 Oxygen Flow Rate (L/min) [2] 4 Oxygen Flow Rate (L/min) [1 ( 2 Initial Baseline)] Oxygen Flow Rate (L/min) 2 Oxygen Delivery Method [4] Nasal Cannula Oxygen Delivery Method [3] Nasal Cannula Oxygen Delivery Method [2] Nasal Cannula Oxygen Delivery Method [1 ( Room Air Initial Baseline)] Oxygen Delivery Method Room Air Weight: 162 lb 4.163 oz Body Mass Index (BMI) 25.4 Intake and Output for Last 24 Hours 08/24/20 08/25/20 08/26/20 23:59 23:59 23:59 Intake Total 2215.25 / 2215.25 630 / 1070 483.58 / 483.58 Output Total 400 / 400 400 / 400 Balance 1815.25 / 1815.25 230 / 670 483.58 / 483.58 General: Alert, Oriented x3, Cooperative, No apparent distress HEENT: Atraumatic Lungs: Normal air movement Cardiovascular: Regular rate Abdomen: Soft, Non Tender - Nontender in her abdomen-- however does have tenderness at the right flank and right back paraspinal, Non-Distended Skin: - - Right chest port site, open covered with gauze, healing no drainage. Microbiology Past 72 Hours 08/24/20 08:35 Blood Culture (Wb) - Anticubital Right Blood Culture - Preliminary No growth in 48 hours. 08/24/20 08:20 Blood Culture (Wb) - Anticubital Right Blood Culture - Preliminary No growth in 48 hours. 08/25/20 17:30 Mucosa - Nose SARS-CoV-2 Antigen (Rapid) - Final 08/22/20 01:53 Other - Randy Cath Miscellaneous Culture - Final Streptococcus agalactiae (B) 08/22/20 01:53 Other - Randy Cath Gram Stain - Final 08/22/20 01:53 Abs - Chest Gram Stain - Final 08/22/20 01:53 Abs - Chest Wound Culture - Final Streptococcus agalactiae (B) 08/22/20 00:45 Blood Culture (Wb) - Right Hand Blood Culture - Final Streptococcus agalactiae (B) 08/21/20 23:45 Blood Culture (Wb) - Anticubital Left Bacteria Detection (PCR) - Final Streptococcus agalactiae (B) 08/21/20 23:45 Blood Culture (Wb) - Anticubital Left Blood Culture - Final Streptococcus agalactiae (B) Laboratory Results 08/25/20 13:24: POC Glucose 177 H 08/25/20 16:37: POC Glucose 251 H 08/25/20 21:14: POC Glucose 117 H 08/26/20 05:40: WBC 7.9, RBC 2.56 L, Hgb 7.4 L, Hct 22.6 L, MCV 88.3, MCH 28.9, MCHC 32.7, RDW Std Deviation 47.7 H, RDW Coeff of Devi 14.9 H, Plt Count 154, MPV 10.8, Immature Gran % (Auto) 0.900, Neut % (Auto) 80.9 H, Lymph % (Auto) 11.1 L, [place] % (Auto) 6.4, Eos % (Auto) 0.4, Baso % (Auto) 0.3, Absolute Neuts (auto) 6.4, Absolute Lymphs (auto) 0.88, Nucleated RBC % 0 08/26/20 05:40: Sodium 137, Potassium 3.4 L, Chloride 102, Carbon Dioxide 28.0, Anion Gap 7, BUN 7, Creatinine 0.60, Estim Creat Clear Calc 94.54, Est GFR (MDRD) Af Amer 130, Est GFR (MDRD) Non-Af 107, BUN/Creatinine Ratio 11.6, Glucose 117 H, Calcium 7.9 L 08/26/20 06:34: POC Glucose 124 H Current Medications Acetaminophen (Acetaminophen 325 Mg Tablet) 650 mg PO Q6H PRN PRN PRN Reason: Pain 1-10 or Fever Last Admin: 08/26/20 04:12 Dose: 650 mg Documented by: Dextrose (Dextrose 50%-Water 25 Gm/50 Ml Disp.Syrin) 0 gm IV X1 PRN; Protocol PRN Reason: Hypoglycemia Enoxaparin Sodium (Enoxaparin 40 Mg/0.4 Ml Syringe) 40 mg SC DAILY [facility] Last Admin: 08/25/20 13:27 Dose: 40 mg Documented by: Glucagon (Glucagon 1 Mg/Ml Syringe) 1 mg IM .X1 PRN PRN Reason: Hypoglycemia Haloperidol Lactate (Haloperidol Lactate 5 Mg/Ml Vial) 5 mg IV Q6H PRN PRN PRN Reason: AGITATION Sodium Chloride () 250 mls @ 15 mls/hr IV .[id number] PRN PRN Reason: Saline Flush Last Infusion: 08/26/20 06:38 Dose: 0 mls/hr Documented by: Sodium Chloride () 1,000 mls @ 0 mls/hr IV .Q0M RAHEEM Ceftriaxone Sodium 2 gm/ (Sodium Chloride) 50 mls @ 100 mls/hr IV Q24 [facility] Insulin Human Lispro (Insulin Lispro 100 Unit/Ml Insuln.Pen) 0 unit SC ACHS [facility]; Protocol Last Admin: 08/26/20 06:36 Dose: Not Given Documented by: Morphine Sulfate (Morphine 2 Mg/Ml Syringe) 2 mg IV Q4H PRN PRN PRN Reason: Pain Score 6-10 Last Admin: 08/25/20 17:57 Dose: 2 mg Documented by: Ondansetron HCl (Ondansetron 4 Mg/2 Ml Vial) 4 mg IV Q8H PRN PRN PRN Reason: NAUSEA/VOMITING Oxycodone HCl (Oxycodone 5 Mg Tablet) 5 mg PO Q4H PRN PRN PRN Reason: Pain Score 6-10 Last Admin: 08/26/20 04:12 Dose: 5 mg Documented by: Sodium Chloride (0.9% Saline Lock 10 Ml Syringe) 10 - 40 ml IV UD PRN PRN Reason: SALINE FLUSH Last Admin: 08/25/20 21:17 Dose: 10 ml Documented by: Medical Necessity - Tobacco Use Smoking Status: Current every day smoker Tobacco Use: Cigarettes Assessment/Plan All Active Problems (Last Updated 08/22/20 @ 13:[address] Jania Torres MD) Acute cholecystitis (Acute) Bacteremia (Acute) Septic shock (Acute) 60-year-old female-infected right IJ Port-A-Cath, cholecystitis, sepsis 1. Continue changes of gauze daily. repeat Blood cultures pending 2. HIDA scan was normal without CCK. No current plans for cholecystostomy tube. Patient did tolerate diet yesterday. Currently does complain of right flank/back pain unsure this is related to her gallbladder as patient is not even eaten this morning. 3. Continue antibiotics per ID Addendum: HIDA scan without CCK showed activity in the gallbladder at 16 minutes no evidence for acute cholecystitis.Okay for diet. No plans for cholecystostomy tube. Julia Mendez M.D. Pager: [phone] [facility] [address] [place] [address], [address] [place] [address] Office: [phone]
[2020-08-26] MEDS: Morphine 2 MG/ML Syringe IV (10:06)
[2020-08-26] MEDS: Enoxaparin 40 MG/0.4 ML Syringe SC (10:09)
--- NOTE | 2020-08-26 10:51 | PN.ID_ITS ---
Patient Problems: Active and Suspected Problems (Last Updated 08/22/20 @ 13:[address] Jania Torres MD) Bacteremia (Acute) Septic shock (Acute) Subjective: Feeling ok, pain in L side is gone, mild pain on R side. No fever. C/o foot swelling, no pain. - Physical Exam Vitals/I&O's: Vital Signs Temp Pulse Resp BP Pulse Ox 98.2 F 84 16 141/72 H 97 08/26/20 09:20 08/26/20 09:20 08/26/20 09:20 08/26/20 09:20 08/26/20 09:20 Oxygen Flow Rate (L/min) [4] 2 Oxygen Flow Rate (L/min) [3] 4 Oxygen Flow Rate (L/min) [2] 4 Oxygen Flow Rate (L/min) [1 ( 2 Initial Baseline)] Oxygen Flow Rate (L/min) 2 Oxygen Delivery Method [4] Nasal Cannula Oxygen Delivery Method [3] Nasal Cannula Oxygen Delivery Method [2] Nasal Cannula Oxygen Delivery Method [1 ( Room Air Initial Baseline)] Oxygen Delivery Method Room Air Weight: 73.6 kg Body Mass Index (BMI) 25.4 Intake and Output for Last 24 Hours 08/24/20 08/25/20 08/26/20 23:59 23:59 23:59 Intake Total 2215.25 / 2215.25 630 / 1070 533.58 / 533.58 Output Total 400 / 400 400 / 400 Balance 1815.25 / 1815.25 230 / 670 533.58 / 533.58 General: Alert, Cooperative, No apparent distress Lungs: Clear to auscultation, Normal air movement Cardiovascular: Regular rate, Regular Rhythm Abdomen: Soft, Non Tender, Non-Distended Skin: No rashes Microbiology Past 72 Hours 08/24/20 08:35 Blood Culture (Wb) - Anticubital Right Blood Culture - Preliminary No growth in 48 hours. 08/24/20 08:20 Blood Culture (Wb) - Anticubital Right Blood Culture - Preliminary No growth in 48 hours. 08/25/20 17:30 Mucosa - Nose SARS-CoV-2 Antigen (Rapid) - Final 08/22/20 01:53 Other - Randy Cath Miscellaneous Culture - Final Streptococcus agalactiae (B) 08/22/20 01:53 Other - Randy Cath Gram Stain - Final 08/22/20 01:53 Abs - Chest Gram Stain - Final 08/22/20 01:53 Abs - Chest Wound Culture - Final Streptococcus agalactiae (B) 08/22/20 00:45 Blood Culture (Wb) - Right Hand Blood Culture - Final Streptococcus agalactiae (B) 08/21/20 23:45 Blood Culture (Wb) - Anticubital Left Bacteria Detection (PCR) - Final Streptococcus agalactiae (B) 08/21/20 23:45 Blood Culture (Wb) - Anticubital Left Blood Culture - Final Streptococcus agalactiae (B) Laboratory Results 08/25/20 13:24: POC Glucose 177 H 08/25/20 16:37: POC Glucose 251 H 08/25/20 21:14: POC Glucose 117 H 08/26/20 05:40: WBC 7.9, RBC 2.56 L, Hgb 7.4 L, Hct 22.6 L, MCV 88.3, MCH 28.9, MCHC 32.7, RDW Std Deviation 47.7 H, RDW Coeff of Devi 14.9 H, Plt Count 154, MPV 10.8, Immature Gran % (Auto) 0.900, Neut % (Auto) 80.9 H, Lymph % (Auto) 11.1 L, [place] % (Auto) 6.4, Eos % (Auto) 0.4, Baso % (Auto) 0.3, Absolute Neuts (auto) 6.4, Absolute Lymphs (auto) 0.88, Nucleated RBC % 0 08/26/20 05:40: Sodium 137, Potassium 3.4 L, Chloride 102, Carbon Dioxide 28.0, Anion Gap 7, BUN 7, Creatinine 0.60, Estim Creat Clear Calc 94.54, Est GFR (MDRD) Af Amer 130, Est GFR (MDRD) Non-Af 107, BUN/Creatinine Ratio 11.6, Glucose 117 H, Calcium 7.9 L 08/26/20 06:34: POC Glucose 124 H Current Medications Acetaminophen (Acetaminophen 325 Mg Tablet) 650 mg PO Q6H PRN PRN PRN Reason: Pain 1-10 or Fever Last Admin: 08/26/20 04:12 Dose: 650 mg Documented by: Dextrose (Dextrose 50%-Water 25 Gm/50 Ml Disp.Syrin) 0 gm IV X1 PRN; Protocol PRN Reason: Hypoglycemia Enoxaparin Sodium (Enoxaparin 40 Mg/0.4 Ml Syringe) 40 mg SC DAILY [facility] Last Admin: 08/26/20 10:09 Dose: 40 mg Documented by: Glucagon (Glucagon 1 Mg/Ml Syringe) 1 mg IM .X1 PRN PRN Reason: Hypoglycemia Haloperidol Lactate (Haloperidol Lactate 5 Mg/Ml Vial) 5 mg IV Q6H PRN PRN PRN Reason: AGITATION Sodium Chloride () 250 mls @ 15 mls/hr IV .[id number] PRN PRN Reason: Saline Flush Last Infusion: 08/26/20 06:38 Dose: 0 mls/hr Documented by: Sodium Chloride () 1,000 mls @ 0 mls/hr IV .Q0M RAHEEM Ceftriaxone Sodium 2 gm/ (Sodium Chloride) 50 mls @ 100 mls/hr IV Q24 RAHEEM Insulin Human Lispro (Insulin Lispro 100 Unit/Ml Insuln.Pen) 0 unit SC ACHS [facility]; Protocol Last Admin: 08/26/20 06:36 Dose: Not Given Documented by: Morphine Sulfate (Morphine 2 Mg/Ml Syringe) 2 mg IV Q4H PRN PRN PRN Reason: Pain Score 6-10 Last Admin: 08/26/20 10:06 Dose: 2 mg Documented by: Ondansetron HCl (Ondansetron 4 Mg/2 Ml Vial) 4 mg IV Q8H PRN PRN PRN Reason: NAUSEA/VOMITING Oxycodone HCl (Oxycodone 5 Mg Tablet) 5 mg PO Q4H PRN PRN PRN Reason: Pain Score 6-10 Last Admin: 08/26/20 04:12 Dose: 5 mg Documented by: Sodium Chloride (0.9% Saline Lock 10 Ml Syringe) 10 - 40 ml IV UD PRN PRN Reason: SALINE FLUSH Last Admin: 08/25/20 21:17 Dose: 10 ml Documented by: Medical Necessity - Tobacco Use Smoking Status: Current every day smoker Tobacco Use: Cigarettes Route of nutrition/ use of supplements: [] Nutritional Intake: [] IV Site: [] Alarcon Catheter: [] - Assessment/Plan Antibiotics: [] Assessment/Plan: [] Active and Suspected Problems (Last Updated 08/22/20 @ 13:[address] Jania Torres MD) Septic shock (Acute) septic shock due to GBS bacteremia per pcr with infected port and suspected cholecystitis - pt denies abd pain, nontender on exam this AM. Port removed by Dr. Mendez 08/22. Fever improved, remains on pressor. Tox screen neg. TTE with possible veg on eustacian valve. HIDA neg. Narrow abx to ceftriaxone. If SHABANA neg for endocarditis, ok for discharge today on po amoxicillin 875mg bid for 7 more days. Will follow
[2020-08-26 11:01] LABS: Bedside Glucose 105 mg/dL (70-110)
--- NOTE | 2020-08-26 11:16 | CASEMGMT ---
RN CM in to update pt that [facility] is unable to provide HHC for her. Pt appears anxious rocking back and forth. Pt states she has no preference for HHC and that she is going to be staying in [place] for a short time with her sister after hospital dc. CM to continue to follow.
--- NOTE | 2020-08-26 15:12 | PCM.DC.SUM ---
Discharge Date and Diagnosis - Problem List Patient Problems: Active and Suspected Problems (Last Updated 08/22/20 @ 13:[address] Jania Torres MD) Bacteremia (Acute) Septic shock (Acute) Date of Admission: 08/22/20 Date of Discharge: 08/26/20 - Primary Discharge Diagnosis Acute Problems: Active Problems (Last Updated 08/22/20 @ 13:[address] Jania Torres MD) Bacteremia (Acute) Septic shock (Acute) endocarditis - Secondary Discharge Diagnosis Chronic Problems: Chronic Problems (Last Updated 08/22/20 @ 13:[address] 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 Small amount of perihepatic fluid. Multiple gallstones with thickened gallbladder wall and small amount of pericholecystic fluid. Findings in keeping with acute cholecystitis. Electronically Signed: Yariel Cool MD at 8:58 EST , Service support , Chest X-Ray 08/22/20 06:18 IMPRESSION: The portacatheter has been removed. I suspect a tiny right apical pneumothorax. Increased markings in the right lung suggests a mild degree of vascular congestion. Electronically Signed: Yariel oCol MD at 8:02 EST , Service support , Lumbar Spine MRI 08/22/20 14:41 IMPRESSION: 1. Degenerative changes. 2. Moderate L4-L5, mild L3-L4 thecal sac stenosis. 3. No spinal infection on noncontrast MR. Electronically Signed: Ashely Peterson MD at 20:38 EST Tel , Service support , Thoracic Spine MRI 08/22/20 14:41 IMPRESSION: 1. Technically suboptimal exam. 2. Degenerative changes. 3. No spinal infection on noncontrast exam. 4. Bilateral pleural effusions. Electronically Signed: Ashely Peterson MD at 20:34 EST Tel , Service support , Brain CT 08/22/20 23:30 IMPRESSION: Chronic involutional changes of the brain. Electronically Signed: Jim Meier DO at 0:53 EST Tel , Service support , Abdomen/Pelvis CT 08/22/20 23:31 IMPRESSION: 1. Gallstones with prominent pericholecystic fluid and gallbladder wall thickening as well as dilated common bile duct. Findings are concerning for acute cholecystitis 2. No evidence to suggest colitis or acute diverticulitis 3. Lung bases are clear Electronically Signed: Jim Meier DO at 0:55 EST Tel , Service support , Hepatobiliary Scan Nuclear Medicine 08/25/20 09:10 IMPRESSION: 1. Visualization of the gallbladder within 60 minutes post radiopharmaceutical administration excludes acute cholecystitis with 97% certitude. (Meera et al, Nucl Med Yolie Niesha Press pg. 35, 1980). 2. Duodenal-gastric reflux is defined as described above. Electronically Signed: Genaro De La Rosa DO at 13:01 EST Tel , Service support , general surgery- Dr Vanessa BARON- Dr Cote Operations: None Procedures: 2-D Echocardiogram, Transesophageal Echo Summary of Care Provided: The patient is a 60 year old F with a PMH significant for COPD, diabetes mellitus, diffuse large B-cell lymphoma now in remission, hypertension and nicotine dependence as well as personality disorder. She was evaluated through the ED on 08/22/2020 with a complaint of malaise for 3 days, with associated weakness, bowel and bladder incontinence, nausea vomiting and diarrhea. She was found to be febrile in the ED as well as tachycardic. She had been seen at [facility] about 3 days ago where she had CT of the chest and CT of the abdomen and pelvis as well as chest x-ray which were not revealing apart from showing cholelithiasis. She was admitted and managed for sepsis thought to be due to acute cholecystitis and infected Port-A-Cath. ID was consulted and she was started on IV broad-spectrum antibiotics. Critical care and ID were consulted. General surgery was also consulted. She was initially admitted to the ICU. She was hydrated with IV fluids. The port site had purulent so she had the port removed and she was started on IV vancomycin and Zosyn. She was initially requiring vasopressors therefore she was managed for septic shock. She was subsequently weaned off of vasopressors. Blood cultures grew strep agalactiae and wound cultures also grew seen. The Port-A-Cath tip culture also grew strep agalactiae. She had a 2D echo done which showed normal left ventricular systolic function with EF of 55 to 60% and moderate sized echogenic vegetation attached to the eustachian valve consistent with eustachian valve endocarditis. She therefore had SHABANA which showed normal left ventricular size with a normal left ventricular systolic function and estimated EF of 60% with a mobile mass noted measuring about 2.5 x 1.8 cm with peduncle attached to the atrial appendage with left atrium which is mildly enlarged. The mass was thought to be possibly a vegetation versus atrial myxoma. Per discussion with cardiology, decision made to transfer patient as she would need a cardiac MRI and cardiothoracic evaluation to see if it was an atrial myxoma and we do not have the resources available here. Patient was therefore accepted at [facility] and was transferred to [facility] on 08/26/2020. Patient was seen and examined prior to discharge. She had no complaints. Review of symptoms otherwise negative. Labs and vitals reviewed. Home medications reviewed and reconciled. O/E: Vital Signs Temp Pulse Resp BP Pulse Ox 98.2 F 80 16 141/72 H 97 08/26/20 09:20 08/26/20 10:55 08/26/20 09:20 08/26/20 09:20 08/26/20 09:20 [] General: Alert, Cooperative, No apparent distress HEENT: Atraumatic, PERRLA, EOMI, Normocephalic Oral: Dry Mucosa Neck: Supple, No JVD, Negative Carotid Bruits Lungs: Clear to auscultation, Normal air movement, No rhonchi, No wheeze, No rales Cardiovascular: Regular rate, Regular Rhythm, Normal S1, Normal S2, No murmurs Abdomen: Bowel Sounds Present, Soft, Non Tender Extremities: No clubbing, No cyanosis, No edema, Capillary Refill Less than 3 Seconds Skin: No rashes, No breakdown Musculoskeletal: No Tenderness to Palpation of Joints or Extremities Lymphatic: No Cervical, Supraclavicular, or Inguinal Adenopathy Neurological: Cranial nerves II-XII grossly intact, Neuro grossly intact, Motor Exam 5/5 strength throughout Psych/Mental Status: Normal Affect, Appropriate, Alert and oriented to time, place, person, mood and affect Plan is for transfer to [facility] internal medicine service. Patient Problems: Active and Suspected Problems (Last Updated 08/22/20 @ 13:[address] Jania Torres MD) Bacteremia (Acute) Septic shock (Acute) - Physical Exam Vitals/I&O's: Vital Signs Temp Pulse Resp BP Pulse Ox 98.2 F 80 16 141/72 H 97 08/26/20 09:20 08/26/20 10:55 08/26/20 09:20 08/26/20 09:20 08/26/20 09:20 Oxygen Flow Rate (L/min) [4] 2 Oxygen Flow Rate (L/min) [3] 4 Oxygen Flow Rate (L/min) [2] 4 Oxygen Flow Rate (L/min) [1 ( 2 Initial Baseline)] Oxygen Flow Rate (L/min) 2 Oxygen Delivery Method [4] Nasal Cannula Oxygen Delivery Method [3] Nasal Cannula Oxygen Delivery Method [2] Nasal Cannula Oxygen Delivery Method [1 ( Room Air Initial Baseline)] Oxygen Delivery Method Room Air Weight: 162 lb 4.163 oz Body Mass Index (BMI) 25.4 Intake and Output for Last 24 Hours 08/24/20 08/25/20 08/26/20 23:59 23:59 23:59 Intake Total 2215.25 / 2215.25 630 / 1070 583.58 / 583.58 Output Total 400 / 400 400 / 400 Balance 1815.25 / 1815.25 230 / 670 583.58 / 583.58 Microbiology Past 72 Hours 08/24/20 08:35 Blood Culture (Wb) - Anticubital Right Blood Culture - Preliminary No growth in 48 hours. 08/24/20 08:20 Blood Culture (Wb) - Anticubital Right Blood Culture - Preliminary No growth in 48 hours. 08/25/20 17:30 Mucosa - Nose SARS-CoV-2 Antigen (Rapid) - Final 08/22/20 01:53 Other - Randy Cath Miscellaneous Culture - Final Streptococcus agalactiae (B) 08/22/20 01:53 Other - Randy Cath Gram Stain - Final 08/22/20 01:53 Abs - Chest Gram Stain - Final 08/22/20 01:53 Abs - Chest Wound Culture - Final Streptococcus agalactiae (B) 08/22/20 00:45 Blood Culture (Wb) - Right Hand Blood Culture - Final Streptococcus agalactiae (B) 08/21/20 23:45 Blood Culture (Wb) - Anticubital Left Bacteria Detection (PCR) - Final Streptococcus agalactiae (B) 08/21/20 23:45 Blood Culture (Wb) - Anticubital Left Blood Culture - Final Streptococcus agalactiae (B) Laboratory Results 08/25/20 16:37: POC Glucose 251 H 08/25/20 21:14: POC Glucose 117 H 08/26/20 05:40: WBC 7.9, RBC 2.56 L, Hgb 7.4 L, Hct 22.6 L, MCV 88.3, MCH 28.9, MCHC 32.7, RDW Std Deviation 47.7 H, RDW Coeff of Devi 14.9 H, Plt Count 154, MPV 10.8, Immature Gran % (Auto) 0.900, Neut % (Auto) 80.9 H, Lymph % (Auto) 11.1 L, [place] % (Auto) 6.4, Eos % (Auto) 0.4, Baso % (Auto) 0.3, Absolute Neuts (auto) 6.4, Absolute Lymphs (auto) 0.88, Nucleated RBC % 0 08/26/20 05:40: Sodium 137, Potassium 3.4 L, Chloride 102, Carbon Dioxide 28.0, Anion Gap 7, BUN 7, Creatinine 0.60, Estim Creat Clear Calc 94.54, Est GFR (MDRD) Af Amer 130, Est GFR (MDRD) Non-Af 107, BUN/Creatinine Ratio 11.6, Glucose 117 H, Calcium 7.9 L 08/26/20 06:34: POC Glucose 124 H 08/26/20 10:55: POC Glucose 105 Current Medications Acetaminophen (Acetaminophen 325 Mg Tablet) 650 mg PO Q6H PRN PRN PRN Reason: Pain 1-10 or Fever Last Admin: 08/26/20 04:12 Dose: 650 mg Documented by: Dextrose (Dextrose 50%-Water 25 Gm/50 Ml Disp.Syrin) 0 gm IV X1 PRN; Protocol PRN Reason: Hypoglycemia Enoxaparin Sodium (Enoxaparin 40 Mg/0.4 Ml Syringe) 40 mg SC DAILY COUNTS INCLUDE 234 BEDS AT THE [facility] Last Admin: 08/26/20 10:09 Dose: 40 mg Documented by: Glucagon (Glucagon 1 Mg/Ml Syringe) 1 mg IM .X1 PRN PRN Reason: Hypoglycemia Haloperidol Lactate (Haloperidol Lactate 5 Mg/Ml Vial) 5 mg IV Q6H PRN PRN PRN Reason: AGITATION Sodium Chloride () 250 mls @ 15 mls/hr IV .[id number] PRN PRN Reason: Saline Flush Last Infusion: 08/26/20 06:38 Dose: 0 mls/hr Documented by: Sodium Chloride () 1,000 mls @ 0 mls/hr IV .Q0M RAHEEM Ceftriaxone Sodium 2 gm/ (Sodium Chloride) 50 mls @ 100 mls/hr IV Q24 COUNTS INCLUDE 234 BEDS AT THE [facility] Last Infusion: 08/26/20 13:55 Dose: Infused Documented by: Insulin Human Lispro (Insulin Lispro 100 Unit/Ml Insuln.Pen) 0 unit SC ACHS COUNTS INCLUDE 234 BEDS AT THE [facility]; Protocol Last Admin: 08/26/20 11:30 Dose: Not Given Documented by: Morphine Sulfate (Morphine 2 Mg/Ml Syringe) 2 mg IV Q4H PRN PRN PRN Reason: Pain Score 6-10 Last Admin: 08/26/20 10:06 Dose: 2 mg Documented by: Ondansetron HCl (Ondansetron 4 Mg/2 Ml Vial) 4 mg IV Q8H PRN PRN PRN Reason: NAUSEA/VOMITING Oxycodone HCl (Oxycodone 5 Mg Tablet) 5 mg PO Q4H PRN PRN PRN Reason: Pain Score 6-10 Last Admin: 08/26/20 04:12 Dose: 5 mg Documented by: Sodium Chloride (0.9% Saline Lock 10 Ml Syringe) 10 - 40 ml IV UD PRN PRN Reason: SALINE FLUSH Last Admin: 08/25/20 21:17 Dose: 10 ml Documented by: Discharge Diet: Low fat/ Low Cholesterol Discharge Activity: Return to Normal Activity Weight Bearing Status: Weight bearing as tolerated Call your doctor if you observe: Fever of 101 or Higher, Shortness of breath, Dizziness, Increased palpitations (irregular heartbeat) Home Medications: Medications to take at Discharge Albuterol Inhaler [Ventolin Hfa] 1 - 2 puff INHALATION Q4H PRN PRN #1 inhaler 03/22/13 Insulin Aspart [Novolog Flexpen (BKC)] 12 units SC TIDCM 08/24/20 Insulin Glargine,Hum.rec.anlog [Lantus] 60 unit SQ QHS 08/24/20 Primary Care Physician: Kiersten Esposito MD [Primary Care Provider] - Please follow up with your Primary Care Physician in: 2-3 weeks Disposition: Acute care Hospital [facility] Minutes spent on discharge:: 45 Patient Condition:: Fair Medical Necessity - Tobacco Use Smoking Status: Current every day smoker Tobacco Use: Cigarettes Meaningful Use Info Meaningful Use Diagnoses (Choose all that apply): None applicable Inpatient E&M: 75946 Disch Hosp
[2020-08-26] MEDS: Haloperidol Lactate 5 MG/ML Vial IV (15:58)
[2020-08-26 16:06] LABS: Bedside Glucose 97 mg/dL (70-110)
== END 2020-08-26 18:39 | disposition short-term general hospital (02) | DRG 721 ==
LOC: ED 23:38 → ICU 08-22 01:29 → PCU 08-23 14:48
PROVIDERS: Hospitalist; Internal Medicine Critical Care Medicine; Admitting Provider Hospitalist; Emergency Provider Emergency Medicine; PCP Internal Medicine; Visit Provider Student in an Organized Health Care Education/Training Program
DX: T80.212A Local infection due to central venous catheter, initial encounter (principal); A41.9 Sepsis, unspecified organism; Y84.8 Other medical procedures as the cause of abnormal reaction of the patient, or of later complication, without mention of misadventure at the time of the procedure; C83.31 Diffuse large B-cell lymphoma, lymph nodes of head, face, and neck; E11.65 Type 2 diabetes mellitus with hyperglycemia; E86.0 Dehydration; E87.6 Hypokalemia; F15.10 Other stimulant abuse, uncomplicated; F17.210 Nicotine dependence, cigarettes, uncomplicated; G92 Toxic encephalopathy; T43.625A Adverse effect of amphetamines, initial encounter; F60.9 Personality disorder, unspecified; M48.061 Spinal stenosis, lumbar region without neurogenic claudication; G93.41 Metabolic encephalopathy; J44.9 Chronic obstructive pulmonary disease, unspecified; D64.9 Anemia, unspecified; R65.21 Severe sepsis with septic shock; B95.1 Streptococcus, group B, as the cause of diseases classified elsewhere; K80.20 Calculus of gallbladder without cholecystitis without obstruction; Z86.711 Personal history of pulmonary embolism; I11.9 Hypertensive heart disease without heart failure; Z91.14 Patient's other noncompliance with medication regimen; Z79.4 Long term (current) use of insulin; W19.XXXA Unspecified fall, initial encounter; Y93.9 Activity, unspecified; Y92.9 Unspecified place or not applicable; Z45.2 Encounter for adjustment and management of vascular access device
CPT/HCPCS: 36415; 70450; 71045; 72146; 72148; 74177; 76705; 78226; 80048; 80053; 80202; 80307; 81001; 82962; 83036; 83605; 83690; 85014; 85018; 85025; 87040; 87070; 87077; 87149; 87186; 87205; 87426; 93306; 93312; 93320; 93325; 97110; 97161; 97165; 97530; 97535; 99285; 99406; A9537; J7030; J7040; J7050; Q9967; A4216; J0696; J2405; J3486

== ENCOUNTER 2023-10-13 18:17 | Emergency (ER) | payer MEDICAID, SELFPAY ==
[2021-08-13 14:42] VITALS: BMI 26.9
[2023-10-13 18:18] VITALS: BP 147/84; PULSE 102; RESP 18; TEMP 35.8; O2SAT 100; BMI 21.7
--- NOTE | 2023-10-13 18:38 | ED.RN ---
pt walked out of ED, called pt to see if she would like to still be seen and she states the wait is too long. pt was triaged 20 min ago. LWBS.
== END 2023-10-13 18:40 | disposition left against medical advice (07) ==
LOC: ED 18:41
DX: M54.2 Cervicalgia (principal)

== ENCOUNTER → 2024-07-29 | Outpatient (CLI) | payer MEDICARE, SELFPAY ==
[2021-08-13 14:42] VITALS: BMI 26.9
--- NOTE | 2024-07-29 12:40 | MRI_ITS ---
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 TECHNIQUE: MRI of the distal left forearm, without and with contrast. COMPARISON: None provided. FINDINGS In the distal left forearm, a large dorsal/radial inhomogeneously enhancing lobulated dermal mass dorsal/radial is seen, measured at approximately 3.9 x 3.9 x 5.9 cm. Significant mass effect of the subdermal tissues is seen, with lesser degree of mass effect on the subjacent tendons, but no definitive extension into the subjacent musculature or tendons is clearly identified. No underlying osseous signal changes are seen. No joint effusion is evident. Visualized portions of the carpal tunnel are unremarkable. MRI/Upper Ext No Joint W/WO Cont IMPRESSION: Large inhomogeneously enhancing lobulated dermal mass, as described. Reading Location: [id number]
== END | disposition home or self-care (01) ==
LOC: MRI 07-30 10:21
PROVIDERS: Referring Provider Plastic Surgery; Visit Provider Plastic Surgery
DX: D48.19 Other specified neoplasm of uncertain behavior of connective and other soft tissue (principal); D48.5 Neoplasm of uncertain behavior of skin
CPT/HCPCS: 73220; A9575

== ENCOUNTER 2024-09-04 22:09 | Observation (INO) | payer MEDICARE, MEDICAID, SELFPAY ==
[2021-08-13 14:42] VITALS: BMI 26.9
[2024-09-04 22:10] VITALS: BP 109/78; PULSE 105; RESP 16; TEMP 36.6; O2SAT 93; BMI 21.4
--- NOTE | 2024-09-04 22:47 | EDS_ITS ---
HPI History of Present Illness Chief Complaint: Hyperglycemia Informant: patient and family Narrative Narrative: 64-year-old female states that she has felt poorly for a month. This is worse than the generalized fatigue she has had for the last 4-5 months that she relates to skin cancer on her left forearm that she is seeing oncology for and in the process of getting worked up before having surgical management of it which is going to also involve plastics according to family. In the past several weeks at least, she has had polyuria and polydipsia, and she had some labs from oncology this morning as an outpatient, her blood sugar was over 500, which is why she is here as she was directed to come to the ER. She states she was diagnosed as a diabetic in the past, but she thought that she did not have it anymore, she states she used to be on insulin and no pills that she knows of, but she has no idea what dose she was on and she takes no medicines for diabetes and has not for a long time. [facility] Medical History History of pneumonia History of diabetes mellitus History of cancer Endocarditis port placement HTN (hypertension) DLBCL (diffuse large B cell lymphoma) Neck mass Diabetes COPD (chronic obstructive pulmonary disease) Tobacco use disorder History of personality disorder Home Medications ?Medication ?Instructions ?Recorded ?Last Taken ?Type albuterol sulfate 90 mcg/actuation 1 - 2 puff inhalati on Q4H PRN PRN 03/22/13 07/25/16 Rx aerosol inhaler Wheezing ##1 Allergy/AdvReac Type Severity Reaction Status Date / Time acetaminophen (From Vicodin) Allergy Severe Swelling Verified 09/04/24 22:10 hydrocodone bitartrate (From Allergy Severe Swelling Verified 09/04/24 22:10 Vicodin) Family History Mother Brain cancer Father Throat cancer Surgical History History of lymph node biopsy History of colonoscopy History of esophagogastroduodenoscopy (EGD) Status post myringotomy with insertion of tube History of section Social History Smoking Status: Light Smoker (<10/day) quit status: considering quitting additional social history: pt admits to vaping, using marijuana use, edibles, aspirin and ibuprofen ROS ROS ED Constitutional Constitutional ED: Reports chills, fatigue and malaise; Denies fever(s) Eyes Eyes: Denies change in vision or diplopia ENT ENT ED: Denies rhinorrhea or sore throat Cardiovascular Cardiovascular: Denies chest pain or palpitations Respiratory/Chest Respiratory/Chest: Denies cough or dyspnea Gastrointestinal Gastrointestinal: Denies abdominal pain, diarrhea, nausea or vomiting Genitourinary Genitourinary ED: Reports urinary frequency; Denies dysuria or hematuria Musculoskeletal Musculoskeletal: Denies back pain or neck pain Integumentary Reports other Details: Sore skin cancer lesion left forearm ; Denies abscess or rash Neurologic Neurologic: Denies headache(s), paresthesias or weakness Psychiatric Psychiatric: Denies anxiety or suicidal thoughts Endocrine Endocrinology: Reports polydipsia and polyuria EXAM Physical Exam Const Vital Signs: 09/04/24 22:10 09/04/24 22:27 Temperature 98 F Temperature Source Temporal Pulse Rate 105 H Respiratory Rate 16 Respiratory Effort Normal Non-Labored Blood Pressure 109/78 Blood Pressure Mean 88 Pulse Ox 93 Oxygen Delivery Method Room Air Positive well nourished and well developed Constitutional Narrative: Keenly alert conversive General Appearance ED: well developed and NAD HEENT Reports moist mucous membranes normocephalic and atraumatic Eyes PERRL and EOMs intact bilaterally Neck full ROM and supple Resp normal respiratory effort and clear to auscultation bilaterally Cardio regular rate, regular rhythm and no murmurs Rate: other Other Details: Mild tachycardia GI non-tender and non-distended Auscultation: normoactive bowel sounds Palpation: soft Back/Spine no CVA tenderness General Back: other FROM Extremity normal to inspection General Extremety ED: Negative for edema, pulses abnormal or tenderness General Extremity: Negative for edema or pulses abnormal Neuro oriented x3, CN's II-XII intact bilaterally and no sensory deficits noted Sensorium / Orientation: awake and alert Motor Exam: strength 5/5 throughout Psych Psych Narrative: Anxious and somewhat agitated but cooperative Skin Skin Narrative: 6-7 cm long fungating exophytic skin growth dorsal left forearm, oozing small amount of blood, no signs of active infection or purulent discharge/abscess. All compartment soft and nondistended. MDM MDM MDM Narrative Medical decision making narrative: Give the patient a liter of fluids while we ran some labs since they were not done at this hospital and I do not have access to her outpatient labs done earlier today. Her blood sugar is in the high 300s, but I am more concerned about her sodium that is 125. She is symptomatic from this feeling very weak. I do not know how long it has been low. I think she would benefit from an inpatient observation so that we can replace it overnight hopefully. Her beta hydroxybutyrate is negative and her pH is actually a little on the high side at 7.49, ruling out DKA. She has no idea what kind of diabetic she is, she thought she grew out of it and the EMR states that she has a history of type 2 diabetes making DKA less likely. Urinalysis negative for infection just positive for glycosuria. Discussed with hospitalist. Lab Data Attestation: I reviewed the patient's lab results. Labs: Laboratory Results - last 24 hr 09/04/24 09/04/24 22:35 23:24 WBC 11.3 H RBC 3.72 L Hgb 10.7 L Hct 30.9 L MCV 83.1 MCH 28.8 MCHC 34.6 RDW Std Deviation 40.4 RDW Coeff of Devi 13.5 Plt Count 245 MPV 9.9 Immature Gran % (Auto) 0.500 Neut % (Auto) 78.4 H Lymph % (Auto) 12.1 L [place] % (Auto) 6.7 Eos % (Auto) 2.1 Baso % (Auto) 0.2 Absolute Neuts (auto) 8.9 H Absolute Lymphs (auto) 1.37 Nucleated RBC % 0 Sodium 125 L Potassium 4.6 Chloride 90 L Carbon Dioxide 26.7 Anion Gap 9 BUN 14 Creatinine 0.68 L Estim Creat Clear Calc 67.27 Est GFR (MDRD) Non-Af 96 BUN/Creatinine Ratio 20.1 H Glucose 388 H Calcium 8.6 b-Hydroxybutyric mmol/L 0.1 Urine Color Yellow Urine Clarity Sl. Cloudy Urine pH 7.0 Ur Specific [place] 1.010 Urine Protein 15 H Urine Glucose (UA) 1000 H Urine Ketones Negative Urine Occult Blood 25 H Urine Nitrite Negative Urine Bilirubin Negative Urine Urobilinogen Normal Ur Leukocyte Esterase Negative Urine RBC 0-5 SEEN Urine WBC 0-5 SEEN Ur Squamous Epith Cells 0 SEEN Urine Bacteria 1+ Urine Mucus 0 SEEN ABG Data ABG results: ABG 09/04/24 23:06 Specimen Type ZONIA Sample Site Not entered VBG pH 7.49 H VBG pO2 36 VBG HCO3 32 H VBG Total CO2 34 H VBG O2 Sat (Calc) 74 H VBG Base Excess 9 H POC Mix VBG pCO2 Pt Tmp 42.5 O2 Delivery Device Room Air Management Discussion w/another healthcare provider: Hospitalist Discharge Plan Dx/Rx/DC Orders Clinical Impression: Acute hyponatremia, Poor compliance with medication, Neoplasm of uncertain behavior of skin, Uncontrolled type 2 diabetes mellitus with hyperglycemia Disposition Disposition: Acute Care Hospital [facility]
[2024-09-04 22:54] LABS: Absolute Lymphocyte Count 1.37 X10^3/uL (0.83-4.51); Absolute Neutrophil Count 8.9 X10^3/uL (2.0-7.7); Basophil# 0.02 X10^3/uL; Basophil% 0.2 % (0-1); Eosinophil# 0.24 X10^3/uL; Eosinophils% 2.1 % (0-5); Hematocrit 30.9 % (37-47); Hemoglobin 10.7 g/dL (12.0-15.0); Lymphocyte # 1.37 X10^3/ul (0.83-4.51); Lymphocyte % 12.1 % (19-41); Mean Corp Hgb Conc 34.6 g/dL (32-36); Mean Corpuscular Hgb 28.8 pg (27.0-32.0); Mean Corpuscular Volume 83.1 fL (81-99); Mean Platelet Vol. 9.9 fl (6.2-12.0); Monocyte# 0.76 X10^3/uL; Monocyte% 6.7 % (0-10); NRBC Flagged by Analyzer 0 % (0-5); Neutrophil # 8.87 X10^3/uL (2.7-7.7); Neutrophil % 78.4 % (47-70); Platelet Count 245 K/mm3 (150-450); RBC Distribution Width CV 13.5 % (11.6-14.6); RBC Distribution Width SD 40.4 fl (35.1-43.9); Red Blood Count 3.72 M/mm3 (4.2-5.4); White Blood Count 11.3 K/mm3 (4.4-11.0)
[2024-09-04] MEDS: 0.9% Normal Saline (1000mL) 1,000 ML 999 ML IV (22:59)
[2024-09-04 23:09] LABS: Blood Gas Specimen Type VEN; O2 Delivery Device Room Air; SITE Not entered; VBG BASE EXCESS 9 mmol/L (-1.0-3.5); VBG Bicarbonate 32 mmol/L (22-26); VBG PO2 36 mmHg (25-40); VBG SO2 74 % (50-70); VBG TCO2 34 mmol/L (23-33); VBG pCO2 42.5 mmHg (41-51); VBG pH 7.49 (7.32-7.42)
[2024-09-04 23:16] LABS: BETA-HYDROXYBUTYRATE 0.1 mmol/L (0.0-0.3)
[2024-09-04 23:21] LABS: Anion Gap 9 (5-15); BUN 14 mg/dL (4-19); BUN/Creat Ratio 20.1 RATIO (10-20); Calcium,Total 8.6 mg/dL (7.6-11.0); Carbon Dioxide 26.7 mmol/L (21.0-32.0); Chloride 90 mmol/L (98-108); Creatinine, Serum 0.68 mg/dL (0.70-1.20); EST Glomerular Filtration Rate 96 (>60); Estimated Creatinine Clearance 67.27 ml/min (50-250); Glucose 388 mg/dL (70-99); Potassium 4.6 mmol/L (3.3-5.1); Sodium Level 125 mmol/L (133-145)
[2024-09-04 23:29] LABS: Mucous, Urine 0 SEEN /hpf (<or=2+); Squamous Epithelial Cells - UA 0 SEEN /hpf (5-10)
[2024-09-04 23:30] LABS: Color, Urine Yellow (Yellow); Glucose, Dipstick 1000 mg/dl (Normal); Ketone-Dipstick Negative (Negative); Leukocyte Esterase-Dipstick Negative /ul (Negative); Nitrite-Dipstick Negative (Negative); Occult Blood-Urine 25 /ul (Negative); Protein-Dipstick 15 mg/dl (Negative); Urine Bilirubin Dipstick Negative (Negative); Urine Clarity Sl. Cloudy (Clear); Urine Urobilinogen Normal (Normal)
[2024-09-04 23:48] LABS: Bacteria 1+ /hpf (None Seen); Red Blood Cells-Urine 0-5 SEEN /hpf (0-5); White Blood Cells 0-5 SEEN /hpf (0-5)
--- NOTE | 2024-09-04 23:54 | PCM.HP.STD ---
HPI - General General Date of Admission: 09/04/24 Date of Service: 09/04/24 Chief Complaint: Fatigue, weakness. HPI Narrative The patient is a 64 y/o F w/ PMHx: COPD, Diabetes mellitus type II, Tobacco use, Polysubstance abuse (methamphetamine/cocaine/cannabis), Personality disorder unclear specifics, HTN, Hx Endocarditis treated with IV antibiotic therapy only per patient report, Chronic normocytic anemia, recent history of enlarging mass in the left forearm of unclear specific significance with planned MRI at that time with follow-up with MRI obtained 07/29/2024 with a large and homogenously enhancing lobulated dermal mass measuring approximately 3.9 x 3.9 x 5.9 cm with significant mass effect of the subdermal tissue seen with a lesser effect on the subadjacent tendons but no definitive extension into the subjacent musculature or tendons with most recent evaluation noted 07/04/[address] Dr[address] Cuba who presents to the [facility] ED on 09/04/2024 with history of feeling poorly with general malaise for at least 1 month and prior to this ongoing fatigue over the last 4 to 5 months with increased recent 1 week history of polyuria, polydipsia with outpatient labs notable for elevated blood sugar of at least 500 with physician recommendation to present to the ED for evaluation. She does states she is following with an oncologist and says that at the [facility] but it does not appear to be a local [place] physician and it potentially is main campus but uncertain. She states she does have a history of diabetes but has not been taking any of her medications even having been in the past on insulin. She is noncompliant with her medications per several chart review histories. Workup in the ED included T98, heart rate 105, BP 109/70, respiratory rate 16, 93% room air, CBC with WC 11.3, he 1 10.7, MCV 83.1, platelet 245 with left shift, VBG with pH 7.49, bicarb 32, total CO2 34, O2 74% on room air, BMP with sodium 125, chloride 90, BUN/creatinine 14/0.67, GFR 96, glucose 388, unremarkable b-hydroxybutyric, urinalysis noted to be cloudy, specific gravity 1.010, protein 15, glucose 1000, ketone negative, occult blood 25 with no marked urine RBCs or WBCs. In the ED patient ministered 1 L normal saline as well as insulin lispro 14 units subcu x 1. [facility] Medical History History of pneumonia History of diabetes mellitus History of cancer Endocarditis port placement HTN (hypertension) DLBCL (diffuse large B cell lymphoma) Neck mass Diabetes COPD (chronic obstructive pulmonary disease) Tobacco use disorder History of personality disorder Allergy/AdvReac Type Severity Reaction Status Date / Time acetaminophen (From Vicodin) Allergy Severe Swelling Verified 09/04/24 22:10 hydrocodone bitartrate (From Allergy Severe Swelling Verified 09/04/24 22:10 Vicodin) Family History Mother Brain cancer Father Throat cancer Surgical History History of lymph node biopsy History of colonoscopy History of esophagogastroduodenoscopy (EGD) Status post myringotomy with insertion of tube History of section Social History household members: none Smoking Status: Light Smoker (<10/day) quit status: considering quitting alcohol intake: current alcohol intake frequency: holidays/special occasions only substance use type: other details: Methamphetamine/cocaine/cannabis noted previously. additional social history: pt admits to vaping, using marijuana use, edibles, aspirin and ibuprofen ROS ROS Narrative Admission Review of Systems: CONSTITUTIONAL: No weight loss, fever, chills, + weakness or fatigue. HEENT: Eyes: No visual loss, blurred vision, double vision or yellow sclerae. Ears, Nose, Throat: No hearing loss, sneezing, congestion, runny nose or sore throat. SKIN: No rash or itching, + significant left forearm lesion which has been growing for several months, following with plastic surgery and oncology, consistent with cancer. CARDIOVASCULAR: No chest pain, chest pressure or chest discomfort, palpitations, edema, orthopnea, syncopal events. RESPIRATORY: No shortness of breath, cough or sputum, wheezing, hemoptysis. GASTROINTESTINAL: + Decreased appetite. No nausea, vomiting or diarrhea, abdominal pain, melena, BRBPR. GENITOURINARY: No dysuria, frequency, urgency or retention. NEUROLOGICAL: No headache, dizziness, syncope, paralysis, ataxia, numbness or tingling in the extremities, focal weakness, change in bowel or bladder control, seizure. MUSCULOSKELETAL: + muscle, back pain, joint pain or stiffness. HEMATOLOGIC: + Chronic anemia. No specific history of easy bleeding or bruising. LYMPHATICS: No enlarged nodes. No history of splenectomy. PSYCHIATRIC: No history of depression or anxiety. ENDOCRINOLOGIC: No reports of sweating, cold or heat intolerance. + polyuria or polydipsia. ALLERGIES: No history of asthma, hives, eczema or rhinitis. Vital Signs Vital Signs Vital Signs: 09/04/24 22:10 09/04/24 22:27 Temperature 98 F Temperature Source Temporal Pulse Rate 105 H Respiratory Rate 16 Respiratory Effort Normal Non-Labored Blood Pressure 109/78 Blood Pressure Mean 88 Pulse Ox 93 Oxygen Delivery Method Room Air Weight Weight: 137 lb Body Mass Index (BMI) 21.4 Physical Exam Narrative Physical Examination: General: Awake, alert, oriented x 3 and cooperative, seated upright in the ED bed, very restless, high concern for possibility of substance abuse at this point. Skin: Normal color, normal turgor, no icterus, no cyanosis except for significant left forearm large fungating friable mass with odor. HEENT: AT/NC, EOMI, PERRLA, dry MM, poor oral care, no carotid bruits or JVD noted. Lungs: Mildly diminished, greater bases, appropriate effort, no rales, ronchi or wheezing. Heart: Mildly tachycardic with regular rhythm; no gallop, rub audible. Abdomen: Soft, NTTP, ND, hyperactive BS, no appreciated HSM. Extremities: No cyanosis, clubbing, or edema, see skin. Neurological: Patient awake, alert, oriented as noted, cognitive function suspect near baseline intact; pupils equally reactive to light and accommodation, cranial nerves gross normal, moving all 4 extremities, no focal deficits, strength moderately globally decreased Psychiatric: Affect appears fatigued otherwise normal, no acute evidence of depressive or anxiety feelings. Results Lab / Micro Data 09/04/24 22:35 09/04/24 22:35 Labs: Laboratory Results - last 24 hr 09/04/24 22:35: WBC 11.3 H, RBC 3.72 L, Hgb 10.7 L, Hct 30.9 L, MCV 83.1, MCH 28.8, MCHC 34.6, RDW Std Deviation 40.4, RDW Coeff of Devi 13.5, Plt Count 245, MPV 9.9, Immature Gran % (Auto) 0.500, Neut % (Auto) 78.4 H, Lymph % (Auto) 12.1 L, [place] % (Auto) 6.7, Eos % (Auto) 2.1, Baso % (Auto) 0.2, Absolute Neuts (auto) 8.9 H, Absolute Lymphs (auto) 1.37, Nucleated RBC % 0, Sodium 125 L, Potassium 4.6, Chloride 90 L, Carbon Dioxide 26.7, Anion Gap 9, BUN 14, Creatinine 0.68 L, Estim Creat Clear Calc 67.27, Est GFR (MDRD) Non-Af 96, BUN/Creatinine Ratio 20.1 H, Glucose 388 H, Calcium 8.6, b-Hydroxybutyric mmol/L 0.1 09/04/24 23:24: Urine Color Yellow, Urine Clarity Sl. Cloudy, Urine pH 7.0, Ur Specific [place] 1.010, Urine Protein 15 H, Urine Glucose (UA) 1000 H, Urine Ketones Negative, Urine Occult Blood 25 H, Urine Nitrite Negative, Urine Bilirubin Negative, Urine Urobilinogen Normal, Ur Leukocyte Esterase Negative, Urine RBC 0-5 SEEN, Urine WBC 0-5 SEEN, Ur Squamous Epith Cells 0 SEEN, Urine Bacteria 1+, Urine Mucus 0 SEEN ABG Data ABG results: ABG 09/04/24 23:06 Specimen Type ZONIA Sample Site Not entered VBG pH 7.49 H VBG pO2 36 VBG HCO3 32 H VBG Total CO2 34 H VBG O2 Sat (Calc) 74 H VBG Base Excess 9 H POC Mix VBG pCO2 Pt Tmp 42.5 O2 Delivery Device Room Air Assessment & Plan Assessment/Plan (1) Acute hyponatremia: PLAN: Plan The patient is a 64 y/o F w/ PMHx: COPD, Diabetes mellitus type II, Tobacco use, Polysubstance abuse (methamphetamine/cocaine/cannabis), Personality disorder unclear specifics, HTN, Hx Endocarditis treated with IV antibiotic therapy only per patient report, Chronic normocytic anemia, recent history of enlarging mass in the left forearm of unclear specific significance with planned MRI at that time with follow-up with MRI obtained 07/29/2024 with a large and homogenously enhancing lobulated dermal mass measuring approximately 3.9 x 3.9 x 5.9 cm with significant mass effect of the subdermal tissue seen with a lesser effect on the subadjacent tendons but no definitive extension into the subjacent musculature or tendons with most recent evaluation noted 07/04/[address] visit with Dr. Cuba who presents to the [facility] ED on 09/04/2024 with history of feeling poorly with general malaise for at least 1 month and prior to this ongoing fatigue over the last 4 to 5 months with increased recent 1 week history of polyuria, polydipsia with outpatient labs notable for elevated blood sugar of at least 500 with physician recommendation to present to the ED for evaluation. #1. Fatigue, malaise, polyuria/polydipsia with adult failure to thrive, multifactorial as noted below in addition to Acute hyponatremia, hypochloremia, suspected in part secondary to hyperglycemia however also suspected hypovolemic component: Admission sodium 125, chloride 90, will initially given suspicion for hypovolemic component hydrate and trend CMP however if not correcting or concerns arise for alternate etiology will pursue further. #2. Diabetes mellitus type II with hyperglycemia, uncontrolled, currently untreated: Hydroxybutyrate negative, urinalysis with glucose but no ketones. Will obtain serum osmolality to be cautious in case of HHS. Currently not on any regimen but in the past had been on insulin. She does have a strong history of noncompliance. Admission glucose elevated 388, will add low-dose twice daily long-acting, will obtain hemoglobin A1c in the interim maintain on ADA diet, accu checks w/ ISS. #3. Left upper extremity mass, unclear exact significance: Patient is already set up and following with plastic surgery and reportedly [facility] oncology potentially at [facility] with recent MRI 07/29/2024 with a large and homogenously enhancing lobulated dermal mass measuring approximately 3.9 x 3.9 x 5.9 cm with significant mass effect of the subdermal tissue seen with a lesser effect on the subadjacent tendons but no definitive extension into the subjacent musculature or tendons, most recent evaluation per plastic surgery 07/04/2024 and per patient and daughter she does have upcoming follow-up with the surgeon again. Given she has follow-up already in place will defer any aggressive inpatient evaluation at this point. Mass is cancerous appearing. #4. History of polysubstance abuse per chart review with suspected ongoing polysubstance abuse: Urine drug screen requested and acute placed in order to be obtained in the ED, high suspicion especially based on behavior and lack of follow-up for ongoing at least methamphetamine usage. Case management consulted and awaiting UDS as noted. #5. Hx Diffuse Large B Cell Lymphoma: Most recent visit noted 08/13/[address] Loco oncology initially evaluated at [facility] for clinical trial however she was discovered mollified secondary to persistent methamphetamine abuse, started receiving R-CHOP at [facility] with return back to [place] for ongoing care unfortunately with chart reported poor compliance with imaging/treatment dates eventually receiving a total of 4 out of planned 6 cycles with remission achieved per PET/CT unfortunately disappearing from January 2019 until July 2021 and no recent follow-up noted since but now reportedly following with Oncology potentially for her recent possible skin CA but uncertain. #6. Chart reported previous history of endocarditis: Most recent noted echocardiogram transesophageal 08/25/2020 with normal LV size, LV systolic function normal, estimated EF 60%, mobile mass measuring 2.5 cm x 1.8 cm with botanical attached to the atrial appendage, left atrium mildly enlarged. From review of records discharge summary 08/26/2020 patient had bacteremia with septic shock and endocarditis at that time transferred to [facility] with unclear interventions following. Records requested from tertiary facility to be certain but she reports she was only treated with prolonged course of IV antibiotic therapy. #7. Chronic normocytic anemia: Admission hemoglobin 10.7, MCV 83.1, baseline hemoglobin per review of records has vacillated and unfortunately patient is not been seen in some time, most recent previous to this 08/13/2021 hemoglobin 12.3 however previous to this had ranged 7-10, will continue to trend. #8. Hypertension: Per current list does not appear to be on regimen, clarified to be certain, PRN hydralazine in the interim. #9. Tobacco Abuse: Encouraged cessation, currently down to 2 cigarettes daily, inpatient consultation per RT, NR deferred given low amount currently using. #10. DVT prophylaxis: Lovenox. #11. CODE status: Patient does not have healthcare power of attorney lawyer or living will in place but notes her daughter would be her medical decision-maker if necessary discussed CODE status at length including difference between FULL code, DNR-CCA and DNR-CC status. Following discussions about the differences in these status, requested Full Code status. Advanced Care Planning Face to Face Time: 16 minutes. Charges/Coding Visit Charges Inpatient E&M: 30736 Init Hosp L3 Procedures Hospitalists Procedures: 27144 Advncd Care Plan 30 Min
[2024-09-05 00:19] VITALS: BP 138/76; PULSE 88; RESP 18; TEMP 36.7; O2SAT 97
[2024-09-05] MEDS: Insulin Lispro 100 UNIT/ML INSULN.PEN 14 UNIT SC (00:23)
[2024-09-05 00:37] LABS: Magnesium 1.7 mg/dL (1.5-2.2); Phosphorus 2.7 mg/dL (2.7-4.5)
[2024-09-05 00:40] VITALS: BP 120/63; PULSE 89; RESP 20; TEMP 37.6; O2SAT 93
[2024-09-05 00:42] VITALS: BMI 21.4
[2024-09-05 00:47] LABS: Amphetamine Urine NEGATIVE (<1000 ng/mL); Barbiturate Urine NEGATIVE (< 200 ng/mL); Benzodiazepine Urine NEGATIVE (< 200 ng/mL); Buprenorphine Urine NEGATIVE (< 200 ng/mL); Cocaine Urine NEGATIVE (< 300 ng/mL); Fentanyl, Urine NEGATIVE; Methadone Urine NEGATIVE (< 300 ng/mL); Opiates Urine NEGATIVE (< 300 ng/mL); Oxycodone, Urine PRESUMTIVE POSITIVE (< 100 ng/mL); PCP Urine NEGATIVE (< 25 ng/mL); THC Urine NEGATIVE (< 50 ng/mL)
[2024-09-05] MEDS: Insulin Glargine-YFGN 100 UNIT/ML Pen 10 UNIT SC ×2 (01:13→09:03)
[2024-09-05] MEDS: 0.9% Normal Saline (1000mL) 1,000 ML 100 ML IV (01:13)
[2024-09-05 04:27] LABS: Absolute Lymphocyte Count 1.37 X10^3/uL (0.83-4.51); Absolute Neutrophil Count 9.3 X10^3/uL (2.0-7.7); Basophil# 0.03 X10^3/uL; Basophil% 0.3 % (0-1); Eosinophil# 0.29 X10^3/uL; Eosinophils% 2.5 % (0-5); Hematocrit 32.3 % (37-47); Lymphocyte # 1.37 X10^3/ul (0.83-4.51); Lymphocyte % 11.6 % (19-41); Mean Corp Hgb Conc 34.1 g/dL (32-36); Mean Corpuscular Hgb 28.4 pg (27.0-32.0); Mean Corpuscular Volume 83.2 fL (81-99); Mean Platelet Vol. 9.8 fl (6.2-12.0); Monocyte# 0.72 X10^3/uL; Monocyte% 6.1 % (0-10); NRBC Flagged by Analyzer 0 % (0-5); Neutrophil # 9.34 X10^3/uL (2.7-7.7); Neutrophil % 78.9 % (47-70); Platelet Count 247 K/mm3 (150-450); RBC Distribution Width CV 13.6 % (11.6-14.6); RBC Distribution Width SD 40.8 fl (35.1-43.9); Red Blood Count 3.88 M/mm3 (4.2-5.4); White Blood Count 11.8 K/mm3 (4.4-11.0)
[2024-09-05 04:47] LABS: Osmolality, Serum 280 mOsm/KG (280-301)
[2024-09-05 04:52] LABS: ALB/GLOB Ratio 0.8 RATIO (0.9-2.4); AST(SGOT) 20 U/L (<=31); Alanine Aminotransfer ALT/SGPT 11 U/L (<=34); Albumin, Serum 3.1 g/dL (3.4-4.8); Alkaline Phosphatase 80 U/L (35-104); Anion Gap 8 (5-15); BUN 12 mg/dL (4-19); BUN/Creat Ratio 19.7 RATIO (10-20); Calcium,Total 8.9 mg/dL (7.6-11.0); Carbon Dioxide 27.1 mmol/L (21.0-32.0); Chloride 97 mmol/L (98-108); Creatinine, Serum 0.58 mg/dL (0.70-1.20); EST Glomerular Filtration Rate 100 (>60); Estimated Creatinine Clearance 67.27 ml/min (50-250); Globulin 4.1 g/dL (2.2-4.2); Glucose 125 mg/dL (70-99); Potassium 3.9 mmol/L (3.3-5.1); Protein, Total 7.2 g/dL (5.9-8.4); Sodium Level 132 mmol/L (133-145)
[2024-09-05 05:35] VITALS: BP 85/56; PULSE 91; RESP 18; TEMP 37.6; O2SAT 95
[2024-09-05 05:45] LABS: Hemoglobin A1c 12.3 % (<=5.6)
[2024-09-05 05:49] VITALS: BMI 21.4
[2024-09-05 06:18] LABS: Bedside Glucose 287 mg/dL (74-106)
--- NOTE | 2024-09-05 06:55 | DCINST_ITS ---
Discharge Instructions Diet Discharge Diet: 1800 Calorie Control Diet DC O2, CPAP, BIPAP needs Home O2 Discharge instructions: No Dressing / Incision Discharge Activity: Return to Normal Activity Weight Bearing Status: Full weight bearing Follow Up Care Test Results: Test results from this visit will be discussed in further detail at your follow- up appointment, if applicable. Discharge Plan Admission Admit Date/Time: 09/04/24 23:55 Primary Reason for Your Visit: Uncontrolled type 2 diabetes Attending Provider: Huseyin Truong Primary Care Provider: Care Physician,No Primary Consulting Providers: Isabel Pelaez Discharge Orders/Prescriptions Prescriptions: New insulin glargine-yfgn 100 unit/mL (3 mL) Insulin Pen 10 unit subcut BID Qty: 15 0RF metformin 500 mg tablet 500 mg PO BID Qty: 60 0RF (DME) pen needle, diabetic 31 gauge x 1/3 needle See Rx Instructions .Route Qty: 100 0RF Rx Instructions: As directed Referrals / Follow Up: Care Physician,No Primary [Primary Care Provider] - Sánchez Bhagat, GEM CARVER-C [[facility]] - Within 2 Weeks (Call for appointment) Disposition Disposition (needs filled in before D/C Order can be placed): Home, Self Care
[2024-09-05 07:30] VITALS: PULSE 85; RESP 20; O2SAT 96
[2024-09-05] MEDS: Ipratropium/Albuterol Sulfate 3 ML AMPUL.NEB INHALATION (07:30)
--- NOTE | 2024-09-05 08:10 | DS.PCM_ITS ---
Providers Date of Admission: 09/04/24 Date of Discharge: 09/05/24 Primary Care Physician: No Primary Care Phys Reason For Visit: HYPERGLYCEMIA, ADULT FTT Diagnosis Discharge Diagnosis (1) Acute hyponatremia: Status: Acute Code(s): E87.1 - Hypo-osmolality and hyponatremia Plan 1. 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 Patient was seen plastic surgery for a growth on her left forearm. Patient stated in the last several weeks she has had polyuria and polydipsia and she had some labs from oncology this morning as an outpatient and her blood sugar was over 500. She was directed to come to the emergency room for evaluation. She had been diagnosed with diabetes in the past but patient was under the impression that had resolved on its own. Patient stated she is to be on insulin. Workup in the emergency room revealed her white blood cell count to be slightly elevated at 11.3, hemoglobin was 10.7, sodium is low at 125, glucose was 388, analysis was unremarkable. Patient was placed into observation status on PCU for acute hyponatremia and uncontrolled type 2 diabetes, she was given IV fluids and labs were monitored, she was given insulin. Patient's labs improved during her hospitalization with her sodium at the time of discharge being 132. On 09/05/2024, patient was seen and examined: On examination she appeared older than her stated age and appearing frail, she does not appear to be in any distress. Vital signs as documented. Skin warm and dry and without overt rashes. There was a raised skin lesion over the patient's left forearm that measured 6 x 4 cm and had a verrucoid appearance. Neck without JVD, thyroid appears normal, trachea is midline, neck is supple. Lungs clear, normal air movement was noted. Heart exam notable for regular rhythm, normal sounds and absence of murmurs, rubs or gallops. Abdomen unremarkable and without evidence of organomegaly, masses, or abdominal aortic enlargement, bowel sounds are present in all 4 quadrants, no abdominal tenderness was noted. Extremities nonedematous, no cyanosis was noted, no clubbing was noted. Neuro: Cranial nerves II through XII are grossly intact, no focal motor deficits were noted, sensation to light touch and pinprick is intact, motor exam 5/5 throughout. Psych: Patient is alert and oriented x3, she does not appear anxious or depressed, she does not appear agitated. Patient appears stable for discharge on 09/05/2024 Weight / BMI Weight Weight: 62.1 kg Body Mass Index (BMI) 21.4 ABG / Lab / Microbiology Data 09/05/24 04:19 09/05/24 04:19 Laboratory: Laboratory Results - last 24 hr 09/04/24 22:35: WBC 11.3 H, RBC 3.72 L, Hgb 10.7 L, Hct 30.9 L, MCV 83.1, MCH 28.8, MCHC 34.6, RDW Std Deviation 40.4, RDW Coeff of Devi 13.5, Plt Count 245, MPV 9.9, Immature Gran % (Auto) 0.500, Neut % (Auto) 78.4 H, Lymph % (Auto) 12.1 L, [place] % (Auto) 6.7, Eos % (Auto) 2.1, Baso % (Auto) 0.2, Absolute Neuts (auto) 8.9 H, Absolute Lymphs (auto) 1.37, Nucleated RBC % 0, Sodium 125 L, Potassium 4.6, Chloride 90 L, Carbon Dioxide 26.7, Anion Gap 9, BUN 14, Creatinine 0.68 L, Estim Creat Clear Calc 67.27, Est GFR (MDRD) Non-Af 96, BUN/Creatinine Ratio 20.1 H, Glucose 388 H, Calcium 8.6, b-Hydroxybutyric mmol/L 0.1 09/04/24 22:38: Phosphorus 2.7, Magnesium 1.7 09/04/24 23:24: Urine Color Yellow, Urine Clarity Sl. Cloudy, Urine pH 7.0, Ur Specific [employer] 1.010, Urine Protein 15 H, Urine Glucose (UA) 1000 H, Urine Ketones Negative, Urine Occult Blood 25 H, Urine Nitrite Negative, Urine Bilirubin Negative, Urine Urobilinogen Normal, Ur Leukocyte Esterase Negative, Urine RBC 0-5 SEEN, Urine WBC 0-5 SEEN, Ur Squamous Epith Cells 0 SEEN, Urine Bacteria 1+, Urine Mucus 0 SEEN 09/05/24 00:11: Urine Opiates Screen NEGATIVE, U Buprenorphine Qual NEGATIVE, Ur Oxycodone Screen PRESUMTIVE POSITIVE, Urine Methadone Screen NEGATIVE, Urine Fentanyl Screen NEGATIVE, Ur Barbiturates Screen NEGATIVE, Ur Phencyclidine Scrn NEGATIVE, Ur Amphetamines Screen NEGATIVE, U Benzodiazepines Scrn NEGATIVE, Urine Cocaine Screen NEGATIVE, U Cannabinoids Screen NEGATIVE 09/05/24 01:04: POC Glucose 287 H 09/05/24 04:19: WBC 11.8 H, RBC 3.88 L, Hgb 11.0 L, Hct 32.3 L, MCV 83.2, MCH 28.4, MCHC 34.1, RDW Std Deviation 40.8, RDW Coeff of Devi 13.6, Plt Count 247, MPV 9.8, Immature Gran % (Auto) 0.600, Neut % (Auto) 78.9 H, Lymph % (Auto) 11.6 L, [place] % (Auto) 6.1, Eos % (Auto) 2.5, Baso % (Auto) 0.3, Absolute Neuts (auto) 9.3 H, Absolute Lymphs (auto) 1.37, Nucleated RBC % 0, Sodium 132 L, Potassium 3.9, Chloride 97 L, Carbon Dioxide 27.1, Anion Gap 8, BUN 12, Creatinine 0.58 L, Estim Creat Clear Calc 67.27, Est GFR (MDRD) Non-Af 100, BUN/Creatinine Ratio 19.7, Glucose 125 H, Hemoglobin A1c 12.3, Serum Osmolality 280, Calcium 8.9, Total Bilirubin 0.40, AST 20, ALT 11, Alkaline Phosphatase 80, Total Protein 7.2, Albumin 3.1 L, Globulin 4.1, Albumin/Globulin Ratio 0.8 L ABG: ABG 09/04/24 23:06 Specimen Type ZONIA Sample Site Not entered VBG pH 7.49 H VBG pO2 36 VBG HCO3 32 H VBG Total CO2 34 H VBG O2 Sat (Calc) 74 H VBG Base Excess 9 H POC Mix VBG pCO2 Pt Tmp 42.5 O2 Delivery Device Room Air D/C Instructions Discharge Diet: 1800 Calorie Control Diet Weight Bearing Status: Full weight bearing DC O2, CPAP, BIPAP Needs Home O2 Discharge instructions: No Meaningful Use Info Meaningful Use Meaningful Use Diagnoses (Choose all that apply): None applicable Ischemic Stroke Statin Dosing Therapy Reference: STATIN DOSE THERAPY REFERENCE: * Patients > 75 years receive moderate or high dose statin therapy. * Patients 75 years or YOUNGER should receive HIGH intensity statin dose unless contraindicated. You will be required to document reason for non-treatment if statin daily dose does not meet guidelines. HIGH DOSE STATIN THERAPY DAILY Atorvastatin > than or = to 40 mg Rosuvastatin > than or = to 20 mg Amlodipine + Atorvastatin > than or = to 2.5/40 mg Ezetimibe + Simvastatin 10/80 mg Simvastatin 80mg Discharge Plan Admission Admit Date/Time: 09/04/24 23:55 Primary Reason for Your Visit: Uncontrolled type 2 diabetes Attending Provider: Huseyin Truong Primary Care Provider: Care Physician,No Primary Consulting Providers: Isabel Pelaez Discharge Orders/Prescriptions Prescriptions: New insulin glargine-yfgn 100 unit/mL (3 mL) Insulin Pen 10 unit subcut BID Qty: 15 0RF metformin 500 mg tablet 500 mg PO BID Qty: 60 0RF (DME) pen needle, diabetic 31 gauge x 1/3 needle See Rx Instructions .Route Qty: 100 0RF Rx Instructions: As directed Referrals / Follow Up: Care Physician,No Primary [Primary Care Provider] - Sánchez Bhagat, REAL ESTATE AGENT/BROKER-C [[facility]] - Within 2 Weeks (Call for appointment) Disposition Disposition (needs filled in before D/C Order can be placed): Home, Self Care Charges/Coding Visit Charges Inpatient E&M: 77559 Disch Hosp >30min
[2024-09-05 08:29] VITALS: BP 120/68; PULSE 98; RESP 16; TEMP 36.7; O2SAT 100
[2024-09-05] MEDS: Insulin Lispro 100 UNIT/ML INSULN.PEN SC (09:02)
[2024-09-05] MEDS: Enoxaparin 40 MG/0.4 ML Syringe SC (09:03)
--- NOTE | 2024-09-05 09:11 | CASEMGMT ---
Patient has order for discharge. Patient is discharging on insulin, RN CM called [facility], no copay for prescriptions. RN CM in to discuss needs at discharge. Patient states she has glucometer and supplies at home. Patient denies needs or help at discharge. Patient had no further questions or concerns.
[2024-09-05 09:23] LABS: Bedside Glucose 204 mg/dL (74-106)
--- NOTE | 2024-09-05 10:43 | PHA.DC.MC.R ---
Pharmacy [facility] has performed discharge medication reconciliation and counseling for this patient. 1. METFORMIN 500MG PO BID 2. INSULIN GLARGINE 10UNITS SC BID The patient's discharge medication list was reviewed for discrepancies and discrepancies were resolved. The patient was counseled on the following discharge medications and changes in medications for homegoing were reviewed. The Reason for Use, instructions for use, and potential side effects were reviewed for all new medications. The patient's questions regarding all of their medications were answered. The patient was able to verbally demonstrate an understanding of their discharge medications. Medications at Discharge Home Medications insulin glargine-yfgn 100 unit/mL (3 mL) subcutaneous pen 10 unit (0.1 mL) subcut BID #15 mL 09/05/24 metformin 500 mg tablet 500 mg PO BID #60 tabs 09/05/24 pen needle, diabetic 31 gauge x 06/22 #100 ea 09/05/24
== END 2024-09-05 10:35 | disposition home or self-care (01) ==
LOC: ED 23:46 → PCU 09-05 00:27
PROVIDERS: Admitting Provider Family Medicine; Emergency Provider Emergency Medicine; Visit Provider Internal Medicine
DX: E87.1 Hypo-osmolality and hyponatremia (principal); C83.30 Diffuse large B-cell lymphoma, unspecified site; F14.19 Cocaine abuse with unspecified cocaine-induced disorder; F11.10 Opioid abuse, uncomplicated; J44.9 Chronic obstructive pulmonary disease, unspecified; E11.65 Type 2 diabetes mellitus with hyperglycemia; D48.5 Neoplasm of uncertain behavior of skin; I10 Essential (primary) hypertension; R62.7 Adult failure to thrive; E87.8 Other disorders of electrolyte and fluid balance, not elsewhere classified; D64.9 Anemia, unspecified; F12.10 Cannabis abuse, uncomplicated; F17.210 Nicotine dependence, cigarettes, uncomplicated; Z79.899 Other long term (current) drug therapy; Z79.82 Long term (current) use of aspirin
CPT/HCPCS: 36415; 80048; 80053; 80307; 81001; 82010; 82803; 82962; 83036; 83735; 83930; 84100; 85025; 94640; 96360; 96361; 96372; 97802; 99221; 99284; 99406; A4216; G0378

== ENCOUNTER 2024-11-26 00:56 | Inpatient (IN) | payer MEDICARE, MEDICAID, SELFPAY ==
[2021-08-13 14:42] VITALS: BMI 26.9
[2024-11-26] VITALS (17 sets, daily range): BP systolic 96–154; BP diastolic 62–86; PULSE 63–98; RESP 16–22; TEMP 34.5–37.1; O2SAT 94–100; BMI 19.5
--- NOTE | 2024-11-26 02:14 | EKG12_ITS ---
Test Reason : SOB Blood Pressure : */* mmHG Vent. Rate : 80 BPM Atrial Rate : 80 BPM P-R Int : 144 ms QRS Dur : 92 ms QT Int : 388 ms P-R-T Axes : -21 21 49 degrees QTcB Int : 447 ms Normal sinus rhythm Normal ECG Confirmed by Grzegorz Jeffries ([id number]), news video editor MAYNOR ROSS ([id number]) on 11/27/2024 6:14:34 AM Referred By: Confirmed By: Grzegorz Jeffries
--- NOTE | 2024-11-26 02:15 | CT_ITS ---
PROCEDURE: BRAIN/HEAD WITHOUT CONTRAST 11/26/2024 REASON FOR EXAM: HX OF CANCER WITH METS TO BRAIN, AMS TECHNIQUE: Head CT without intravenous contrast. Coronal and Sagittal reconstruction series were provided. One or more dose reduction techniques were used (e.g., Automated exposure control, adjustment of the mA and/or kV according to patient size, use of iterative reconstruction technique. RADIATION DOSE SUMMARY: CTDlvol: 44.9 mGy DLP: 812 mGycm COMPARISON: 08/22/2020. FINDINGS: Scattered ill-defined hypodense foci are noted of the little-white matter junction of the supratentorial and infratentorial brain parenchyma with associated mild multifocal edema. Associated metastatic brain disease is not excluded. No associated ventricular compression, midline shift or brain herniation. Normal size of the ventricles and extra-axial spaces for the patient's age. Normal basal ganglia and thalami. Normal brainstem. There is no demonstrated extra-axial, intraparenchymal, or intraventricular hemorrhage. There are no findings of an acute ischemic infarction. Normal calvarium. There is no demonstrated fracture. Normal soft tissue structures. Normal visualized paranasal sinuses. CT/Brain/Head without Contrast IMPRESSION: Scattered ill-defined hypodense foci are noted of the little-white matter junctio n of the supratentorial and infratentorial brain parenchyma with associated mild multifocal edema. Associated metastatic brain disease is not excluded. No associated ventricular compression, midline shift or brain herniation. Reading [facility]
--- NOTE | 2024-11-26 02:17 | EX.ED.DYSGE1 ---
HPI History of Present Illness Chief Complaint: Shortness of Breath Narrative Narrative: Patient is a 64-year-old female with past medical history of hypertension, hyponatremia, cancer with metastases to the brain, personality disorder, diabetes, diffuse large B-cell lymphoma who presents to the Emergency Department chief complaint of shortness of breath and altered mental status. According to patient's daughter at bedside who provided history of present illness secondary to her altered mental status she states that starting tonight she seemed like she was not breathing normally and they asked her if she was having some difficulty breathing she said yes therefore they brought her here for the valuation management. States that she was just released from the hospital not long ago and notes that she was at [facility] in [place] and then was ultimately transferred to [facility] as that is where her cancer doctors at. States that tomorrow she is post to have radiation therapy. When I inquired about CODE STATUS they note that she does not have a DO NOT RESUSCITATE order and as of now is full code I inquired if they have talked about her CODE STATUS is a family given her extent of her cancer and they state they have but as a family they have not come to a conclusion [facility] Medical History Acute hyponatremia Poor compliance with medication History of pneumonia History of diabetes mellitus History of cancer Endocarditis port placement HTN (hypertension) DLBCL (diffuse large B cell lymphoma) Neck mass Diabetes COPD (chronic obstructive pulmonary disease) Tobacco use disorder History of personality disorder Home Medications ?Medication ?Instructions ?Recorded ?Last Taken ?Type pen needle, diabetic 31 gauge x #100 ea 09/05/24 Unknown Rx 1/3 dexamethasone 6 mg tablet 6 mg PO Q12H 11/26/24 Unknown History insulin NPH-regular 70-30 U-100 50 unit subcut QPM 11/26/24 Unknown History insulin 100 unit/mL subcutaneous pen (Novolin 70-30 FlexPen U-100 Insulin) insulin NPH-regular 70-30 U-100 70 unit subcut DAILY 11/26/24 Unknown History insulin 100 unit/mL subcutaneous pen (Novolin 70-30 FlexPen U-100 Insulin) levetiracetam 500 mg tablet 500 mg PO Q12H 11/26/24 Unknown History olanzapine 5 mg disintegrating 5 mg PO QHS 11/26/24 Unknown History tablet ondansetron HCl 8 mg tablet 8 mg PO Q8H 11/26/24 Unknown History pantoprazole 40 mg tablet,delayed 40 mg PO DAILY 11/26/24 Unknown History release prochlorperazine maleate 10 mg 10 mg PO Q6H PRN 11/26/24 Unknown History tablet sulfamethoxazole 800 1 tab PO MOWEFR 11/26/24 Unknown History mg-trimethoprim 160 mg tablet Allergy/AdvReac Type Severity Reaction Status Date / Time acetaminophen (From Vicodin) Allergy Severe Swelling Verified 11/26/24 00:58 hydrocodone bitartrate (From Allergy Severe Swelling Verified 11/26/24 00:58 Vicodin) Family History Mother Brain cancer Father Throat cancer Surgical History History of lymph node biopsy History of colonoscopy History of esophagogastroduodenoscopy (EGD) Status post myringotomy with insertion of tube History of section Social History household members: none Smoking Status: Current every day smoker tobacco type: cigarettes quit status: considering quitting alcohol intake: current alcohol intake frequency: holidays/special occasions only substance use type: other details: Methamphetamine/cocaine/cannabis noted previously. additional social history: pt admits to vaping, using marijuana use, edibles, aspirin and ibuprofen ROS ROS ED ROS Narrative Review of systems unobtainable from patient therefore acute care And applies secondary to her altered mental status EXAM Physical Exam Narrative Exam Narrative: General: Patient lying in bed rest comfortably not appear to be acute distress Head: Atraumatic, normocephalic Eyes: PERRL bilaterally, EOMI bilateral, no conjunctival injection noted Neck: Soft, supple, trachea midline Cardiovascular: Regular rate and rhythm Respiratory: Clear to auscultation bilaterally Abdomen: Soft, nondistended, nontender to palpation Extremities: +4/5 strength in the bilateral upper and lower extremities Neurological: Patient was more sleepy than normal according to daughter at bedside Skin: Patient has a chronic wound on the dorsal aspect of her left forearm Const Vital Signs: 11/26/24 00:59 11/26/24 00:59 11/26/24 01:18 Temperature 98.2 F 98.2 F Temperature Source Oral Oral Pulse Rate 90 90 Respiratory Rate 20 H 20 H Respiratory Effort Normal Non-Labored Respiratory Depth Respiratory Pattern Normal Blood Pressure 104/73 104/73 Blood Pressure Mean 83 83 Pulse Ox 97 97 Oxygen Delivery Method Room Air Room Air 11/26/24 01:18 11/26/24 02:00 11/26/24 02:07 Temperature 98.0 F Temperature Source Oral Pulse Rate 70 70 Respiratory Rate 18 19 H Respiratory Effort Normal Non-Labored Respiratory Depth Normal Respiratory Pattern Normal Blood Pressure 154/86 H 154/86 H Blood Pressure Mean 108 108 Pulse Ox 97 97 Oxygen Delivery Method Room Air Room Air 11/26/24 02:34 11/26/24 02:46 11/26/24 03:00 Temperature 94.8 F L Temperature Source Core Pulse Rate 98 77 Respiratory Rate 22 H 20 H Respiratory Effort Respiratory Depth Respiratory Pattern Blood Pressure 119/71 Blood Pressure Mean 87 Pulse Ox 97 97 Oxygen Delivery Method Room Air Room Air 11/26/24 04:00 11/26/24 05:00 11/26/24 06:00 Temperature 94.1 F L 95.5 F L 95.9 F L Temperature Source Core Core Core Pulse Rate 63 78 80 Respiratory Rate 18 18 18 Respiratory Effort Respiratory Depth Respiratory Pattern Blood Pressure 96/70 109/70 103/67 Blood Pressure Mean 78 83 79 Pulse Ox 100 95 95 Oxygen Delivery Method Room Air Room Air Room Air MDM MDM MDM Narrative Medical decision making narrative: Patient is a 64-year-old female who presented to the emergency department chief complaint of shortness of breath, chest pain, altered mental status. On the differential diagnosis includes but not limited to intracranial hemorrhage, acute hypercapnic respiratory failure, pneumothorax, pneumonia, COPD exacerbation. Once workup is obtained and reviewed she will be reevaluated. Patient will given 30 cc/kg bolus of IV fluids this was ordered at 2:25 am Patient's CBC reviewed and was significant for a white blood count of 4, hemoglobin was 9.7, platelet count normal at 205 she was noted to be neutropenic with her absolute neutrophil count of 1.8, INR was 0.9, PT of 12.5. Patient's VBG showed a pH 7.49 with a pCO2 of 35. Patient sodium normal 136, potassium normal 3.5, creatinine was 0.54. Patient's glucose was noted to be low indicating hypoglycemia at 43 this is likely secondary to her altered mental status given after given an amp of D50 she was much more alert. Patient lactic acid normal at 1.8, AST was noted to be 33. Patient troponin was 7, EKG reviewed showed sinus rhythm with a rate of 80 bpm. Patient's urinalysis reviewed showed no evidence of infection. Patient chest x-ray reviewed by myself and by radiology which showed no acute cardiopulmonary processes. Patient CT head and brain without contrast showed scattered ill-defined hyperdense foci are noted of the little-white matter junction of the supratentorial and infratentorial brain parenchyma associated mild multifocal edema. Associated metastatic brain disease is not excluded. No associated ventricular compression midline shift or brain herniation. Patient has a known history of this and is currently being treated with Decadron per the daughter at bedside. States that she was originally admitted to [facility] to the intensive care unit and ultimately transferred to [facility]. She states that her mental status has waxed and waned ever since leaving [facility]. Given the patient's hypothermia, low absolute neutrophil count in the setting of cancer and chemotherapy approximately 2 weeks ago will give her IV antibiotics vancomycin and cefepime which were ordered at 3:54 AM. Patient was started on D5 LR at 100 mL an hour. Given there is no identifiable source infection at this point time will add on a CT chest and abdomen pelvis Patient was ordered vancomycin and cefepime at 3:[address] of her chest reviewed showed coronary artery calcifications subsegmental atelectasis of the right lower lobe associated endobronchial lesion is not excluded cannot fully exclude pneumonia. Mild emphysema, mild osteopenia, mild. Diffuse spondylosis. Peripheral calcified left thyroid lobe nodule measured 1.3 cm subacute healing fractures in the axillary portion of the right 4th, 5th, 6th and 7th ribs. Patient's CT abdomen pelvis without contrast reviewed as her IV was bloating and CT and she was refusing another placement. There is interval appearance of subsegmental atelectasis/consolidation the right lower lobe associated pneumonia not excluded increase hepatomegaly. Interval appearance of multiple heterogeneous metastatic necrotic liver lesions with the largest in the right hepatic lobe measuring 7.8 x 5.3 cm. Cholelithiasis without acute cholecystitis. Simple cyst in the lower pole of the left kidney. Alarcon catheter balloon seen in the bladder uncomplicated colonic diverticulosis. Moderate amount of fecal in the large bowel. At this point in time given the patient's hypothermia, neutropenia, concern for pneumonia will admit the patient to the hospital will discuss with hospitalist. Spoke with hospitalist Dr. Pulido who states that he will not admit the patient to the hospital currently as she on her head CT has Mild local focal edema secondary to her brain lesions. I discussed with him that this is a known issue and this is not new and that she requires him admission for her pneumonia, hypothermia and neutropenia. He states that he will not accept the patient for admission and is requesting that I call to get records of this diagnosis from the previous hospitalizations that she has had as we do not have a CT that shows us in our system. I notified him that this is once again a known issue this is not new and I do not feel that that is appropriate for me to call outside facilities to obtain these records at this point in time. He states that he will wait to put admission orders in until further investigation is completed. Lab Data Labs: Laboratory Results - last 24 hr 11/26/24 11/26/24 11/26/24 02:30 02:39 04:45 WBC 4.0 L RBC 3.46 L Hgb 9.7 L Hct 28.4 L MCV 82.1 MCH 28.0 MCHC 34.2 RDW Std Deviation 46.2 H RDW Coeff of Devi 16.2 H Plt Count 205 MPV 10.3 Neut % (Auto) Not Reportable Absolute Neuts (auto) 1.8 L Absolute Lymphs (auto) 1.72 Total Counted 100 Neutrophils % (Manual) 34 L Band Neutrophils % 12 H Lymphocytes % (Manual) 43 H Monocytes % (Manual) 5 Eosinophils % (Manual) 3 Myelocytes % 2 H Promyelocytes % 1 H Differential Comment SCANNED Diff Path Review October foll PT 12.5 INR 0.9 APTT 30.9 Sodium 136 Potassium 3.5 Chloride 96 L Carbon Dioxide 27.9 Anion Gap 12 BUN 21 H Creatinine 0.54 L Estim Creat Clear Calc 62.02 Est GFR (MDRD) Non-Af 102 BUN/Creatinine Ratio 39.7 H Glucose 43 L* 111 H Lactic Acid 1.8 Calcium 10.2 Total Bilirubin 0.35 AST 33 H ALT 27 Alkaline Phosphatase 230 H Troponin T High Sens 7 Troponin T Hi Sens 2 Hr 6 Total Protein 6.8 Albumin 3.5 Globulin 3.3 Albumin/Globulin Ratio 1.1 TSH 0.742 Free T4 1.30 Free T3 pg/dL 1.8 L Urine Color Yellow Urine Clarity Clear Urine pH 7.0 Ur Specific Reliance 1.005 Urine Protein Negative Urine Glucose (UA) 100 H Urine Ketones Negative Urine Occult Blood Negative Urine Nitrite Negative Urine Bilirubin Negative Urine Urobilinogen Normal Ur Leukocyte Esterase Negative Urine RBC 0 SEEN Urine WBC 0 SEEN Ur Squamous Epith Cells 0-5 SEEN Urine Bacteria 0 SEEN Urine Mucus 0 SEEN ABG Data ABG results: ABG 11/26/24 02:36 Specimen Type ZONIA Sample Site Not entered VBG pH 7.49 H VBG pO2 65 H VBG HCO3 34 H VBG Total CO2 35 H VBG O2 Sat (Calc) 94 H VBG Base Excess 10 H POC Mix VBG pCO2 Pt Tmp 43.8 O2 Delivery Device Room Air Radiography Diagnostic Testing: Clinical Impression(s) from Imaging Studies Brain CT 11/26/24 02:15 IMPRESSION: Scattered ill-defined hypodense foci are noted of the little-white matter junction of the supratentorial and infratentorial brain parenchyma with associated mild multifocal edema. Associated metastatic brain disease is not excluded. No associated ventricular compression, midline shift or brain herniation. Reading Location: [place] [address] Chest X-Ray 11/26/24 03:35 IMPRESSION: No radiographic evidence of an acute bone abnormality. Reading Location: [place] [address] Abdomen/Pelvis CT 11/26/24 04:37 IMPRESSION: Interval appearance of subsegmental atelectasis/consolidation in the right lower lobe. Associated pneumonia is not excluded. Increased hepatomegaly. Interval appearance of multiple heterogeneous metastatic necrotic liver lesions with the largest in the right hepatic lobe measuring 7.8 x 5.3 cm. Simple cyst is noted in the lower pole of the left kidney measuring 3.5 cm. Cholelithiasis without acute cholecystitis. Alarcon catheter balloon is seen in the bladder. Uncomplicated colonic diverticulosis. Moderate amount of fecal residue in the large bowels. Increased hepatomegaly. Reading Location: [place] [address] 11/26/24 04:37 IMPRESSION: Coronary artery calcification (CAC) is is present Subsegmental atelectasis of the right lower lobe. Associated endobronchial lesion is not excluded. Mild emphysema. Mild osteopenia. Moderate diffuse spondylosis. Increased dorsal kyphosis. Moderate coronary artery calcifications. Periphery calcified left thyroid lobe nodule is noted measuring 1.3 cm. No tracheal narrowing or deviation is seen. Subacute healing fractures in the axillary portions of the right 4th, 5th, 6 and 7th ribs. Reading [id number] Dis[facility] Triage Chief Complaint: Shortness of Breath Other Complaint: Abd Pain Chest Pain ED Provider: Rk Oliveros Dx/Rx/DC Orders Clinical Impression: Hypothermia, Neutropenia, History of cancer metastatic to brain, Metastatic lung cancer (metastasis from lung to other site), Pneumonia Prescriptions: No Action (DME) pen needle, diabetic 31 gauge x 1/3 needle See Rx Instructions .Route Qty: 100 0RF Rx Instructions: As directed dexamethasone 6 mg tablet 6 mg PO Q12H Patient Comments: [NO ORIGINAL SIG] levetiracetam 500 mg tablet 500 mg PO Q12H Patient Comments: [NO ORIGINAL SIG] ondansetron HCl 8 mg tablet 8 mg PO Q8H Patient Comments: [NO ORIGINAL SIG] olanzapine 5 mg tablet,disintegrating 5 mg PO QHS prochlorperazine maleate 10 mg tablet 10 mg PO Q6H PRN Patient Comments: [NO ORIGINAL SIG] pantoprazole 40 mg tablet,delayed release (DR/EC) 40 mg PO DAILY sulfamethoxazole-trimethoprim 800-160 mg tablet 1 tab PO MOWEFR Novolin 70-30 FlexPen U-100 100 unit/mL (70-30) insulin pen 70 unit subcut DAILY Novolin 70-30 FlexPen U-100 100 unit/mL (70-30) insulin pen 50 unit subcut QPM Primary Care Provider: Care Physician,No Primary Referrals: Care Physician,No Primary [Primary Care Provider] - Print Language: Icelandic Disposition Disposition: [facility]
[2024-11-26] MEDS: Ipratropium/Albuterol Sulfate 3 ML AMPUL.NEB INHALATION ×2 (02:29)
[2024-11-26 02:39] LABS: Blood Gas Specimen Type VEN; O2 Delivery Device Room Air; SITE Not entered; VBG BASE EXCESS 10 mmol/L (-1.0-3.5); VBG Bicarbonate 34 mmol/L (22-26); VBG PO2 65 mmHg (25-40); VBG SO2 94 % (50-70); VBG TCO2 35 mmol/L (23-33); VBG pCO2 43.8 mmHg (41-51); VBG pH 7.49 (7.32-7.42)
[2024-11-26 02:45] LABS: Bacteria 0 SEEN /hpf (None Seen); Mucous, Urine 0 SEEN /hpf (<or=2+); Red Blood Cells-Urine 0 SEEN /hpf (0-5); White Blood Cells 0 SEEN /hpf (0-5)
[2024-11-26 02:50] LABS: Color, Urine Yellow (Yellow); Glucose, Dipstick 100 mg/dl (Normal); Ketone-Dipstick Negative (Negative); Leukocyte Esterase-Dipstick Negative /ul (Negative); Nitrite-Dipstick Negative (Negative); Occult Blood-Urine Negative /ul (Negative); Protein-Dipstick Negative (Negative); Specific Gravity, Urine 1.005 (1.002-1.030); Urine Bilirubin Dipstick Negative (Negative); Urine Clarity Clear (Clear); Urine Urobilinogen Normal (Normal)
[2024-11-26 02:50] LABS: Hematocrit 28.4 % (37-47); Hemoglobin 9.7 g/dL (12.0-15.0); Mean Corp Hgb Conc 34.2 g/dL (32-36); Mean Corpuscular Volume 82.1 fL (81-99); Mean Platelet Vol. 10.3 fl (6.2-12.0); POSITIVE COUNT YES; POSITIVE MORPHOLOGY YES; Platelet Count 205 K/mm3 (150-450); RBC Distribution Width CV 16.2 % (11.6-14.6); RBC Distribution Width SD 46.2 fl (35.1-43.9); Red Blood Count 3.46 M/mm3 (4.2-5.4)
[2024-11-26] MEDS: 0.9% Normal Saline (1000mL) 1,000 ML 999 ML IV ×2 (02:54→03:50)
--- OUTSIDE RECORDS SUMMARY | 2024-11-26 03:04 | XMS RPT_ITS | CCD ---
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 Phone TABET, NENA Unavailable Unavailable TABET, NENA Unavailable Unavailable TOVA, BRII Unavailable Unavailable RAGHUNATHAN, BETHANY Unavailable Unavailable RAGHUNATHAN, BETHANY Unavailable Unavailable TOVA, BRII Unavailable Unavailable Deniz Rodriguez Unavailable Unavailable Marlene Leija Unavailable Unavaila ble Unavailable Unavailable Unavailable Unavailable Primary Care Provider UnavailFabricio Higginbotham Primary Care Provider [phone] Fabricio Wright MD Primary Care Provider [phone] PHYSICIAN, NONE Primary Care Physician Unavailab le PHYSICIAN, PATIENT UNSURE Primary Care Physician Unavailable FABRICIO SANTOS MD Attending Unavailable PHYSICIAN, NONE Primary Care Unavailable PHYSICIAN, NONE Primary Care Unavailable MORTEZA PALACIOS, DR DUKE Attending Unavailab le Unavailable Primary Care Provider Unavailabl e PHYSICIAN, NONE Primary Care Unavailable MORTEZA PALACIOS, DR DUKE Attending Unavailab le PHYSICIAN, NONE Primary Care Unavailable BRYAN PALACIOS, DR DAMIAN TREVINO Attending [place] Attending Unavaila Amrit Goodwin MD Unavailable Unavaila royce Bah RN, Mirella Unavailable Care Physician, No Primary Primary Care Provider Unavailable Care Physician, No Primary Referring Provider Un available Rosa Elena PALACIOS, Dr. Machuca Attending Provider Dr. Brigette Cuba MD Referring Provider Dr. Ramez Nuñez MD Emergency Provider Benigno PALACIOS, Dr. Isabel Cox Admit Provider Benigno PALACIOS, Dr. Isabel Cox Attending Provider Benigno PALACIOS, Dr. Isabel Cox Other Provider Dionne SWENSON, Dr. Fontanez Attending Provider Judie FONTANA, Jeaneth Unavailable [phone] BI HO Referring Unavaila ANUEL Kamara Admitting UnavailMELLY Aponte Consulting Unavailable ELÍAS NATARAJAN Attending Unavailable Rafi RN, Dionne Unavailable Unavailable Harmeet FONTANA, Meche Unavailable Unavailable Sunny PALACIOS, Sanjay Unavailable Care Physician, No Primary Primary Care Unava ilable Town Doctor, Out of Attending Unavailable Brigette Cuba Attending Unavailable Care Physician, No Primary Referring Unava ilable Care Physician, No Primary Primary Care Unava ilable Huseyin Truong Attending Unavailable Care Physician, No Primary Primary Care Unava ilable Isabel Pelaez Admitting Unavailable Isabel Pelaez Consulting Unavailable Huseyin Truong Consulting Unavailable Isabel Pelaez Attending Unavailable Brigette Cuba Attending Unavailable Brigette Cuba Referring Unavailable Care Physician, No Primary Primary Care Unava ilable Huseyin Truong Attending Unavailable Care Physician, No Primary Primary Care Unava ilable Isabel Pelaez Admitting Unavailable Isabel Pelaez Consulting Unavailable Lonnie PALACIOS, Amaury Unavailable SELF Referring Unavailable TIFFANIE AVILA Attending Unavailable HUMBERTO ENOCH Edson Referring Unavailable AMAURY FLEMING Attending Unavailable JOHANA SAGASTUME Referring Unavailable PRESLEY PAULLOJILLIAN Sandhu Referring Unavailable SANJAY CORREA Attending Unavailable VALERIE GUERRERO Admitting Unavailable MEREDITH BERUMEN Referring Unavailable AVILA, TIFFANIE Referring Unavailable MITCHELLJOHANA Attending Unavailable AVILA TIFFANIE Attending Unavailable JOHANA SAGASTUME Referring Unavailable AMRIT MARTINEZ Attending Unavailable KOYFMHARESH ENOCH Edson Attending Unavailable AVILA, TIFFANIE Referring Unavailable MITCHELLJOHANA MATIAS Referring Unavailable KOYLISS, ENOCH A Attending Unavailable BRENNA LEARY Attending Unavailable PAT HINDS Attending Unavailable CRIS BURNETTE Referring Unavailable LINNETTE MOJICA Admitting Unavailable LINNETTE MOJICA Attending Unavailable CONCHITA MCDANIEL Attending Unavailable CRIS BURNETTE Referring Unavailable ENOCH PAUL Referring Unavailable AMRIT MARTINEZ Attending Unavailable AMAURY FLEMING Attending Unavailable AMAURY FLEMING Referring Unavailable Allergies Allergy Classification Reported Allergen(s) Allergy Type Date of Onset Reaction(s) Facility (20 sources) Acetaminophen / HYDROcodone; Translations: [HYDROCODONE-ACETA MINOPHEN] Drug Allergy 02-17-2013 Rash [facility] Work Phone: (20 sources) Codeine; Translations: [codeine] Drug Allergy 09-30-2012 Rash [facility] Work Phone: (5 sources) Acetaminophen / HYDROcodone; Translations: [acetaminophen-hyd rocodone] Drug Allergy [facility] (3 sources) Acetaminophen Drug Allergy 10-13-[address] [facility] Comment on above: rash, (4 sources) HYDROcodone; Translations: [hydrocodone bitartrate] Drug Allergy 10-13-[address] [facility] Comment on above: rash (1 source) Acetaminophen Drug Allergy 09-04-2024 [facility] Medications Current Medications Medication Drug Class(es) Dates Sig (Normalized) Sig (Original) Tylenol (2 sources) Start: 06-28-2024 Tylenol Oral, 0 Refill(s) Start Date: 06/28/24 Status: Ordered Repeat number: 1 acetaminophen 325 mg / oxyCODONE hydrochloride 5 mg oral tablet (11 sources) Opioid Agonist Start: 07-14-2024 End: 07-19-2024 take 1 tablet by mouth every six hours as needed for pain Percocet 5 mg-325 mg oral tablet Dose = 1 tab(s), Oral, q6h, PRN for pain, X 5 day(s), # 20 tab(s), 0 Refill(s), Dental caries, 62.5 Start Date: 07/14/24 Stop Date: 07/19/24 Status: Ordered Quantity: 20.0 Unit: tab(s) Repeat number: 1 Indication: Dental caries, unspecified Start: 08-26-2020 oxyCODONE-acet aminophen (PERCOCET) 5-325 MG per tablet 1 tablet Start: 12-22-2018 End: 12-31-2018 Oxycodone-Acetaminophen 1 TA BLET tablet Discontinued 1 {tbl} PO EVERY 6 HOURS NEEDED as needed for Pain 12 December 22, 2018 December 24, 2018 12:00am December 31, 2018 12:09am Start: 12-22-2018 End: 12-31-2018 take 1 tablet by mouth every six hours as needed Oxycodone-Acetaminophen Discontinued 1 TABLET PO EVERY 6 HOURS NEEDED 12 December 22, 2018 December 31, 2018 12:09am Start: 12-08-2018 End: 12-10-2018 Oxycodone-Acetaminophen 1 TA BLET tablet Discontinued 1 - 2 {tbl} PO EVERY 6 HOURS NEEDED as needed for Pain 5 2 December 08, 2018 December 09, 2018 12:00am December 10, 2018 12:09am Start: 12-08-2018 End: 12-10-2018 take 1 tablet by mouth every six hours as needed Oxycodone-Acetaminophen Discontinued 1 - 2 TABLET PO EVERY 6 HOURS NEEDED 5 2 December 08, 2018 December 10, 2018 12:09am Start: 09-08-2018 End: 09-11-2018 Oxycodone-Acetaminophen 1 TA BLET tablet Discontinued 1 {tbl} PO EVERY 6 HOURS NEEDED as needed for Pain 12 3 September 08, 2018 12:00am September 10, 2018 12:00am September 11, 2018 12:09am Start: 09-08-2018 End: 09-11-2018 take 1 tablet by mouth every six hours as needed Oxycodone-Acetaminophen Discontinued 1 TABLET PO EVERY 6 HOURS NEEDED 12 September 08, 2018 12:00am September 11, 2018 12:09am acetic acid 20 mg/ml / hydrocortisone 10 mg/ml otic solution (20 sources) Corticosteroid Start: 05-22-2022 hydrocortisone-acetic acid (VOSOL-HC) otic solution Use 3 Drops in the left ear twice daily. 5 mL 05/22/2022 Active [id number] actuat albuterol 0.09 mg/actuat metered dose inhaler (20 sources) beta2-Adrenergic Agonist Start: 10-05-2018 take 2 puff(s) by inhalation every six hours as needed albuterol HFA (PROVENTIL HFA) 90 mcg/actuation inhaler Indications: COPD, mild (HCC) Inhale 2 Puffs as instructed every 6 hours as needed. 1 Inhaler 2 10/05/2018 Active Start: 09-26-2017 take 2.5 mg by inhal ation every six hours as needed for wheezing and wheezing albuterol (PROVENTIL) 2.5 mg/0.5 mL nebulizer solution Indications: Wheezing Use 0.5 mL via nebulizer every 6 hours as needed. 100 Vial 3 09/26/2017 Active Start: 03-22-2013 End: 09-05-2024 Albuterol Sulfate 1 INHALER inhaler Discontinued 1 - 2 NMA INHALATION EVERY 4 HOURS NEEDED as needed for Wheezing March 22, 2013 12:00am September 05, 2024 12:19am Start: 03-22-2013 take 1 puff(s) by in halation every four hours as needed Albuterol Sulfate Active 1 - 2 PUFF INHALATION EVERY 4 HOURS NEEDED March 22, 2013 12:00am aspirin 81 mg delayed release oral tablet (20 sources) Platelet Aggregation Inhibitor, Nonsteroidal Anti-inflammatory Drug Start: 08-19-2020 aspirin 81 mg ora l delayed release tablet Dose : 81 mg = 1 tab(s), Oral, qDay, # 30 tab(s), 0 Refill(s) Start Date: 08/19/20 Status: Ordered Start: 11-08-2015 take 1 dose by mouth once lucy y aspirin Dose : 81 mg =, Oral, qDay, 0 Refill(s) Start Date: 11/08/15 Status: Ordered Blood-Glucose Meter (ACCU-CHEK GUIDE GLUCOSE METER) (4 sources) Start: 11-19-2024 Blood-Glucose Meter (ACCU-CHEK GUIDE GLUCOSE METER) Use to monitor glucose three times daily 1 each 11/19/2024 3:56 PM EDT 11/19/2024 Active Blood-Glucose Meter (TRUE METRIX GLUCOSE METER) (9 sources) Start: 10-04-2024 Blood-Glucose Meter (TRUE METRIX GLUCOSE METER) Indications: Poorly controlled type 2 diabetes mellitus with complication (HCC) Use as directed to check glucose three times daily. E11.65 1 each 10/04/2024 Active dexamethasone 6 mg oral tablet (6 sources) Corticosteroid Start: 11-19-2024 take 1 tablet by mouth twice daily at mealtime dexAMETHasone (DECADRON) 6 mg tablet Take 1 tablet by mouth two times a day with meals. 60 tablet 11/19/2024 3:56 PM EDT 11/19/2024 Active Start: 11-10-2024 inject 4 mg intraven ously every six hours dexAMETHasone sodium phosphate (DECADRON) 4 mg/mL injection Inject 4 mg intravenously every 6 hours. 11/10/2024 Suspended docusate sodium 50 mg / sennosides, group home 8.6 mg oral tablet (1 source) Start: 11-22-2024 End: 12-22-2024 take 2 tablets by mouth every twelve hours as needed senna-docusate (SENNA-S) 8.6-50 mg per tablet Take 2 tablets by mouth two times a day as needed for constipation. 120 tablet 11/22/2024 12/22/2024 Active 0.4 ml enoxaparin sodium 100 mg/ml prefilled syringe (1 source) Low Molecular Weight Heparin Start: 08-27-2020 inject 40 mg by subcutaneous injection once daily 40 mg, Subcutaneous, DAILY, First dose on Tue08/27/20 at 0900 0.5 ml filgrastim-aafi 0.6 mg/ml prefilled syringe (1 source) Leukocyte Growth Factor Start: 11-15-2024 End: 11-25-2024 inject 0.5 mL by subcutaneous injection once daily filgrastim-aafi (NIVESTYM) 300 mcg/0.5 mL injection Inject 0.5 mL subcutaneously once daily for 10 days. 5 mL 11/15/2024 11/25/2024 Active glucagon (rdna) 1 mg injection (1 source) Antihypoglycemic Agent Start: 08-26-2020 take 1 mL intravenous route every hour 1 mg, Intramuscular, PRN, Low blood sugar, Blood glucose less than 70 mg/dL and patient NOT ALERT or NPO and does not have IV access., Starting Tue08/26/20 at 2221 After administration, attempt intravenous access and start D5W at 100 mL/hr. Repeat blood glucose in 15 minutes x2 and notify provider. glucose 0.417 mg/mg oral gel (3 sources) Start: 08-26-2020 15 g, Oral, PRN, Low blood sugar, Starting Tue08/26/20 at 2221 If blood glucose less than 50 mg/dL and patient ALERT and TOLERATING PO, give 2 tubes glucose gel. If blood glucose less than 70 mg/dL and patient ALERT and TOLERATING PO, give 1 tube glucose gel. Repeat blood glucose in 15 minutes. If blood glucose is less than 70 mg/dL, repeat treatment and recheck blood glucose in 15 minutes x2 and notify provider. Start: 08-26-2020 12.5 g, Intrav enous, PRN, Low blood sugar, Blood glucose less than 70 mg/dL and patient NOT ALERT or NPO., Starting 08/26/20 at 2221 If patient does not respond within 5 minutes, repeat dose x1. Start D5W at 100 mL/hour until ordering provider can be reached. Repeat blood glucose in 15 minutes. If blood glucose is less than 70 mg/dL, repeat treatment and recheck blood glucose in 15 minutes x2. If using Glucostabilizer, dose as instructed per system. Start: 08-26-2020 100 mL/hr, Int ravenous, at 100 mL/hr, PRN, Low blood sugar, Starting Tue08/26/20 at 2221 Start infusion following administration of dextrose 50% or glucagon. 3 ml heparin sodium, porcine 100 unt/ml prefilled syringe (20 sources) Unfractionated Heparin, Anti-coagulant Start: 09-18-2020 End: 09-22-2020 heparin flush 100 UNIT/ML injection 500 Units Start: 09-15-2020 End: 09-17-2020 heparin flush 100 UNIT/ML in jection 500 Units Start: 09-13-2020 End: 09-14-2020 heparin flush 100 UNIT/ML in jection Start: 09-06-2020 End: 09-11-2020 heparin flush 100 UNIT/ML in jection 500 Units Start: 09-02-2020 End: 09-05-2020 heparin flush 100 UNIT/ML in jection 500 Units Start: 08-29-2020 End: 09-01-2020 heparin flush 100 UNIT/ML in jection 500 Units hydrALAZINE hydrochloride 10 mg oral tablet (20 sources) Arteriolar Vasodilator take 1 tablet by mouth once daily hydrALAZINE (APRESOLINE) 10 MG tablet Indications: patient states she does not take this anymore Take 10 mg by mouth daily Indications: patient states she does not take this anymore 0 Active hydroCHLOROthiazide 25 mg oral tablet (12 sources) Thiazide Diuretic Start: 2020 End: 2020 take 1 tablet by mouth once daily hydroCHLOROthiazide (HYDRODIURIL) 25 MG tablet Take 1 tablet by mouth daily for 10 days 90 tablet 0 09/24/2020 Active 3 ml insulin glargine 100 unt/ml pen injector (20 sources) Insulin Analog Start: 2020 insulin glargine (LANTUS SOLOSTAR) 100 UNIT/ML injection pen Inject 25 Units into the skin nightly 5 pen 3 08/29/2020 Active Start: 08-28-2020 insulin glargi ne (LANTUS) injection vial 25 Units Start: 06-27-2018 End: 09-07-2024 insulin glargine (BASAGLAR K WIKPEN U-100 INSULIN) 100 unit/mL (3 mL) inpn Indications: Uncontrolled type 2 diabetes mellitus with insulin therapy inject 60 units subcutaneously at bedtime 10 Pen 5 06/27/2018 09/07/2024 Discontinued Start: 01-25-2018 inject 1 dose by sub cutaneous injection once daily at bedtime Basaglar KwikPen 100 units/mL subcutaneous solution (NF) Dose : 60 unit(s) =, Subcutaneous, qHS Start Date: 01/25/18 Status: Ordered Start: 02-06-2015 End: 08-13-2021 inject 60 [IU] by subcutaneous injection at bedtime Insulin Glargine 100 UNIT/ML solution Discontinued 60 U SQ AT BEDTIME August 24, 2020 9:07am August 13, 2021 3:21pm Start: 09-30-2012 End: 08-29-2020 insulin glargine (LANTUS) 10 0 UNIT/ML injection Inject 50 Units into the skin daily. 1 vial 0 09/30/2012 08/29/2020 Discontinued (Stop Taking at Discharge) Insulin Glargine-Yfgn 100 unit/mL (3 mL) Insulin Pen (1 source) Start: 09-05-2024 Insulin Glargi ne-Yfgn 100 unit/mL (3 mL) Insulin Pen Active 10 U SC TWICE A DAY September 05, 2024 12:00am 3 ml insulin lispro 100 unt/ml pen injector (20 sources) Insulin Analog Start: 08-29-2020 insulin lispro , 1 Unit Dial, (HUMALOG KWIKPEN) 100 UNIT/ML SOPN Inject 6 Units into the skin 3 times daily (before meals) 5 pen 1 08/29/2020 Active Start: 08-28-2020 insulin lispro (HUMALOG) injection vial 6 Units Start: 08-27-2020 0-6 Units, Sub cutaneous, 3 TIMES DAILY WITH MEALS, First dose on Tue08/27/20 at 0800 Low Dose Correction Algorithm Glucose: Dose: 70-139 No Insulin 140-199 1 Unit 200-249 2 Units 250-299 3 Units 300-349 4 Units 350-399 5 Units 400 and above 6 Units Start: 08-26-2020 0-3 Units, Sub cutaneous, NIGHTLY, First dose on Tue08/26/20 at 2245 If continuous tube feedings/TPN/NPO, give correction dose based on result, no reduction in dose. If eating or bolus tube feeding: Low Dose Bedtime Correction Algorithm Glucose: Dose: 70-139 No Insulin 140-249 1 Unit 250-349 2 Units 350 and above 3 Units isopropyl alcohol 0.7 ml/ml medicated pad (7 sources) Start: 11-19-2024 alcohol swabs (ALCOHOL PADS) Use prior to insulin injections twice daily 200 each 11/19/2024 3:56 PM EDT 11/19/2024 Active Start: 09-25-2020 Alcohol Swabs (ALCOHOL PADS) 70 % PADS Indications: Type 2 diabetes mellitus without complication, with long-term current use of insulin (HCC) As Directed 200 each 5 09/25/2020 Active levETIRAcetam 500 mg oral tablet (8 sources) Start: 11-19-2024 take 1 tablet by mouth twice daily in the evening levETIRAcetam (KEPPRA) 500 mg tablet Take 1 tablet by mouth two times a day. 60 tablet 11/19/2024 3:56 PM EDT 11/19/2024 Active Start: 08-19-2020 Keppra BID, 0 Refill(s) Start Date: 08/19/20 Status: Ordered lidocaine 0.05 mg/mg medicated patch (2 sources) Antiarrhythmic, Amide Local Anesthetic Start: 10-13-2023 lidocaine 5% topical patch Apply 1 patch(es), Transdermal, Daily, If needed for pain remove patches after 12 hours, # 10 patch(es), 0 Refill(s), 64 Start Date: 10/13/23 Status: Ordered Start: 08-27-2020 lidocaine 4 % external patch 1 patch metFORMIN hydrochloride 500 mg oral tablet (1 source) Biguanide Start: 09-05-2024 take 1 tablet by mouth twice daily Metformin 500 mg tablet Active 500 mg PO TWICE A DAY 60 September 05, 2024 12:00am metroNIDAZOLE 500 mg oral tablet (20 sources) Nitroimidazole Antimicrobial Start: 08-30-2024 metroNIDAZOLE (FLAGYL) 500 mg tablet 1 tablet as directed. Crush 1-2 tablets and sprinkle over wound twice daily for odor. 80 tablet 1 08/30/2024 Active naproxen 250 mg oral tablet (1 source) Nonsteroidal Anti-inflammatory Drug Start: 10-13-2023 naproxen 250 mg oral tablet Dose : 250 mg = 1 tab(s), Oral, q8h, PRN pain, # 15 tab(s), 0 Refill(s) Start Date: 10/13/23 Status: Ordered OLANZapine 5 mg disintegrating oral tablet (5 sources) Atypical Antipsychotic Start: 11-19-2024 take 2.5 mg by mouth every eight hours as needed OLANZapine orally disintegrating (ZYPREXA ZYDIS) 5 mg disintegrating tablet Take a HALF tablet by mouth every 8 hours as needed (agitation). Discard the remaining half each time. 20 tablet 11/19/2024 3:56 PM EDT 11/19/2024 Active ondansetron 8 mg oral tablet (6 sources) Serotonin-3 Receptor Antagonist Start: 11-19-2024 take 1 tablet by mouth every eight hours as needed ondansetron (ZOFRAN) 8 mg tablet Take 1 tablet by mouth every 8 hours as needed for nausea/vomiting. First line 30 tablet 11/19/2024 3:56 PM EDT 11/19/2024 Active Start: 02-07-2021 End: 02-07-2021 ondansetron (ZOFRAN) injecti on 4 mg oxyCODONE hydrochloride 5 mg oral tablet (20 sources) Opioid Agonist Start: 09-12-2024 End: 10-17-2024 take 1 tablet by mouth every four hours as needed oxyCODONE IR (ROXICODONE) 5 mg immediate release tablet Indications: Palliative care by specialist , Squamous cell carcinoma, arm, left , Cancer related pain Take 1-2 tablets by mouth every 4 hours as needed for pain for up to 7 days. 84 tablet 10/10/2024 Active pantoprazole 40 mg delayed release oral tablet (5 sources) Proton Pump Inhibitor Start: 11-20-2024 take 1 tablet by mouth once daily in the morning pantoprazole DR (PROTONIX) 40 mg tablet Take 1 tablet by mouth daily at 6 am. While on steroids 30 tablet 11/19/2024 3:56 PM EDT 11/20/2024 Active penicillin v potassium 500 mg oral tablet (1 source) Start: 07-14-2024 End: 07-24-2024 penicillin V potassium 500 mg oral tablet Dose : 500 mg = 1 tab(s), Oral, QID, X 10 day(s), # 40 tab(s), 0 Refill(s), 07/24/24 7:11:00 PM EST, 62.5 Start Date: 07/14/24 Stop Date: 07/24/24 Status: Ordered Quantity: 40.0 Unit: tab(s) Repeat number: 1 polyethylene glycol 3350 [id number] mg powder for oral solution (1 source) Osmotic Laxative Start: 08-26-2020 17 g, Oral, D AILY PRN, Constipation, Starting 08/26/20 at 2215 First line therapy for constipation predniSONE 10 mg oral tablet (12 sources) Start: 04-26-2022 take 3 tablets by mouth twice daily in the morning predniSONE 10 mg oral tablet 3, PO, BID, 1st dose in am, # 27 tab(s), 0 Refill(s), COPD - Chronic obstructive pulmonary disease URTI - Viral upper respiratory tract infection Start Date: 04/26/22 Status: Ordered Start: 01-18-2019 End: 01-27-2019 take 5 tablets by mouth once daily Prednisone 20 MG tablet Discontinued 100 mg PO DAILY 25 January 18, 2019 11:15am January 22, 2019 12:00am January 27, 2019 12:09am Take 100 mg (5 tablets) by mouth on the day of chemotherapy and for four days after chemotherapy Start: 01-18-2019 End: 01-27-2019 take 1 tablet by mouth once daily Prednisone Discontinued 100 MG PO DAILY 25 January 18, 2019 11:15am January 27, 2019 12:09am Take 100 mg (5 tablets) by mouth on the day of chemotherapy and for four days after chemotherapy Start: 01-09-2019 End: 01-14-2019 take 5 tablets by mouth once daily at mealtime Prednisone 20 MG tablet Discontinued 100 mg PO DAILY 25 January 09, 2019 12:00am 2019 12:00am January 14, 2019 12:09am With Food Start: 01-09-2019 End: 01-14-2019 take 100 mg by mouth once daily at mealtime Prednisone Discontinued 100 MG PO DAILY 25 January 09, 2019 12:00am January 14, 2019 12:09am With Food Start: 12-19-2018 End: 12-24-2018 take 5 tablets by mouth once daily at mealtime Prednisone 20 MG tablet Discontinued 100 mg PO DAILY 25 December 19, 2018 12:00am December 23, 2018 12:00am December 24, 2018 12:09am With Food, daily x5 Start: 12-19-2018 End: 12-24-2018 take 100 mg by mouth once daily at mealtime Prednisone Discontinued 100 MG PO DAILY 25 December 19, 2018 12:00am December 24, 2018 12:09am With Food, daily x5 prochlorperazine 10 mg oral tablet (5 sources) Phenothiazine Start: 11-19-2024 take 1 tablet by mouth every six hours as needed prochlorperazine (COMPAZINE) 10 mg tablet Take 1 tablet by mouth every 6 hours as needed for nausea/vomiting. Second-line 30 tablet 11/19/2024 3:56 PM EDT 11/19/2024 Active Promethazine (1 source) Phenothiazine Start: 08-26-2020 promethazine (PHENERGAN) tablet 12.5 mg short acting insulin (3 sources) Start: 08-19-2020 short acting insulin short acting insulin, 0 Refill(s), 68.2 Start Date: 08/19/20 Status: Ordered sodium chloride flush 0.9 % injection 3 mL (2 sources) Start: 02-07-2021 sodium chloride flush 0.9 % injection 3 mL Start: 09-13-2020 sodium chlorid e flush 0.9 % injection 3 mL sulfamethoxazole 800 mg / trimethoprim 160 mg oral tablet (5 sources) Dihydrofolate Reductase Inhibitor Antibacterial, Sulfonamide Antimicrobial Start: 11-21-2024 take 1 tablet by mouth once sulfamethoxazole-trimethoprim (BACTRIM DS) 800-160 mg per tablet Take 1 tablet by mouth every Tuesday, Tuesday, and Tuesday. While on steroids 12 tablet 11/19/2024 3:56 PM EDT 11/21/2024 Active Start: 11-21-2024 take 1 tablet by zandra th once sulfamethoxazole-trimethoprim (BACTRIM D S) 800-160 mg per tablet Take 1 tablet by mouth every Tuesday, Tuesday, and Tuesday. While on steroids 12 tablet 11/19/2024 3:56 PM EDT 11/21/2024 Active Start: 11-21-2024 take 1 tablet by zandra th once sulfamethoxazole-trimethoprim (BACTRIM D S) 800-160 mg per tablet Take 1 tablet by mouth every Tuesday, Tuesday, and Tuesday. While on steroids 12 tablet 11/19/2024 3:56 PM EDT 11/21/2024 Active tiZANidine 4 mg oral tablet (1 source) Central alpha-2 Adrenergic Agonist Start: 08-26-2020 take 4 mg by mouth once daily 4 mg, Oral, NIGHTLY, First dose on Tue08/26/20 at 2245 valACYclovir 1000 mg oral tablet (1 source) Herpesvirus Nucleoside Analog DNA Polymerase Inhibitor, Herpes Simplex Virus Nucleoside Analog DNA Polymerase Inhibitor, Herpes Zoster Virus Nucleoside Analog DNA Polymerase Inhibitor Start: 02-07-2021 End: 02-14-2021 take 1 tablet by mouth three times daily valACYclovir (VALTREX) 1 g tablet Take 1 tablet by mouth 3 times daily for 7 days 21 tablet 0 02/07/2021 02/14/2021 Active Completed/Discontinued Medications Medication Drug Class(es) Dates Sig (Normalized) Sig (Original) 120 actuat albuterol 0.1 mg/actuat / ipratropium bromide 0.02 mg/actuat inhalation spray (3 sources) Anticholinergic, beta2-Adrenergic Agonist Start: 04-26-2022 take 1 puff(s) by inhalation four times daily Combivent Respimat CFC free 20 mcg-100 mcg/inh inhalation aerosol Dose = 1 puff(s), Inhalation, QID, with one puff albuterol, # 4 gram(s), 0 Refill(s), COPD - Chronic obstructive pulmonary disease URTI - Viral upper respiratory tract infection Start Date: 04/26/22 Status: Ordered azithromycin 500 mg injection (1 source) Macrolide Antimicrobial Start: 11-10-2024 take 500 mg intravenously every twenty-four hours azithromycin (ZITHROMAX) 500 mg in D5W 250 mL Inject 250 mL intravenously every 24 hours. 11/10/2024 Suspended Blood-Glucose Meter (FREESTYLE LITE METER) monitoring kit (20 sources) Start: 09-07-2024 End: 10-04-2024 Blood-Glucose Meter (FREESTYLE LITE METER) monitoring kit Indications: Poorly control type 2 diabetes mellitus (HCC) Freestyle LITE Meter Kit - Dx: Type 2 DM - Uncontrolled E11.65 1 Each 09/07/2024 10/04/2024 Discontinued Start: 09-07-2024 Blood-Glucose Meter (FREESTYLE LITE METER) monitoring kit Indications: Poorly control type 2 diabetes mellitus (HCC) Freestyle LITE Meter Kit - Dx: Type 2 DM - Uncontrolled E11.65 1 Each 09/07/2024 Active Start: 06-04-2016 End: 09-07-2024 Blood-Glucose Meter (FREESTY LE LITE METER) monitoring kit Freestyle LITE Meter Kit - Dx: Type 2 DM - Uncontrolled E11.65 1 Each 06/04/2016 09/07/2024 Discontinued Start: 06-04-2016 Blood-Glucose Meter (FREESTYLE LITE METER) monitoring kit Freestyle LITE Meter Kit - Dx: Type 2 DM - Uncontrolled E11.65 1 Each 06/04/2016 Active cefTRIAXone (ROCEPHIN) 2000 mg IVPB in D5W 50ml minibag (20 sources) Start: 09-22-2020 End: 09-22-2020 cefTRIAXone (ROCEPHIN) 2000 mg IVPB in D5W 50ml minibag Start: 09-21-2020 End: 09-21-2020 cefTRIAXone (ROCEPHIN) 2000 mg IVPB in D5W 50ml minibag Start: 09-20-2020 End: 09-20-2020 cefTRIAXone (ROCEPHIN) 2000 mg IVPB in D5W 50ml minibag Start: 09-19-2020 End: 09-19-2020 cefTRIAXone (ROCEPHIN) 2000 mg IVPB in D5W 50ml minibag Start: 09-18-2020 End: 09-18-2020 cefTRIAXone (ROCEPHIN) 2000 mg IVPB in D5W 50ml minibag Start: 09-16-2020 End: 09-16-2020 cefTRIAXone (ROCEPHIN) 2000 mg IVPB in D5W 50ml minibag Start: 09-15-2020 End: 09-15-2020 cefTRIAXone (ROCEPHIN) 2000 mg IVPB in D5W 50ml minibag Start: 09-13-2020 End: 09-13-2020 cefTRIAXone (ROCEPHIN) 2000 mg IVPB in D5W 50ml minibag Start: 09-11-2020 End: 09-11-2020 cefTRIAXone (ROCEPHIN) 2000 mg IVPB in D5W 50ml minibag Start: 09-10-2020 End: 09-10-2020 cefTRIAXone (ROCEPHIN) 2000 mg IVPB in D5W 50ml minibag Start: 09-09-2020 End: 09-09-2020 cefTRIAXone (ROCEPHIN) 2000 mg IVPB in D5W 50ml minibag Start: 09-08-2020 End: 09-08-2020 cefTRIAXone (ROCEPHIN) 2000 mg IVPB in D5W 50ml minibag Start: 09-07-2020 End: 09-07-2020 cefTRIAXone (ROCEPHIN) 2000 mg IVPB in D5W 50ml minibag Start: 09-06-2020 End: 09-06-2020 cefTRIAXone (ROCEPHIN) 2000 mg IVPB in D5W 50ml minibag Start: 09-04-2020 End: 09-04-2020 cefTRIAXone (ROCEPHIN) 2000 mg IVPB in D5W 50ml minibag Start: 09-03-2020 End: 09-03-2020 cefTRIAXone (ROCEPHIN) 2000 mg IVPB in D5W 50ml minibag Start: 09-02-2020 End: 09-02-2020 cefTRIAXone (ROCEPHIN) 2000 mg IVPB in D5W 50ml minibag Start: 09-01-2020 End: 09-01-2020 cefTRIAXone (ROCEPHIN) 2000 mg IVPB in D5W 50ml minibag Start: 08-31-2020 End: 08-31-2020 cefTRIAXone (ROCEPHIN) 2000 mg IVPB in D5W 50ml minibag Start: 08-30-2020 End: 08-30-2020 cefTRIAXone (ROCEPHIN) 2000 mg IVPB in D5W 50ml minibag Start: 08-27-2020 2,000 mg, Intr avenous, EVERY 24 HOURS, First dose on Tue08/27/20 at 1400, Until Discontinued cefTRIAXone (ROCEPHIN) infusion (20 sources) Start: 08-29-2020 End: 09-22-2020 take 2 g intravenous route every twenty-four hours cefTRIAXone (ROCEPHIN) infusion Infuse 2 g intravenously every 24 hours 0 08/29/2020 09/22/2020 Start: 08-29-2020 End: 09-22-2020 take 2 g intravenous route every twenty-four hours cefTRIAXone (ROCEPHIN) infusion Infuse 2 g intravenously every 24 hours 0 08/29/2020 09/22/2020 Active cemiplimab-rwlc 350 mg in NaCl 0.9% 117 mL (LIBTAYO) (1 source) Start: 10-23-2024 End: 10-23-2024 350 mg, INTRAVENOUS, at 234 mL/hr, Administer over 30 Minutes, ONCE, 1 dose, On Tue10/23/24 at 1530, EXP: Administer with 0.2 micron filter. Refrigerate - Allow preparation to reach room temperature prior to administration. cephalexin 500 mg oral capsule (3 sources) Cephalosporin Antibacterial Start: 01-01-2019 End: 01-08-2019 take 1 capsule by mouth every six hours Cephalexin 500 MG capsule Discontinued 500 mg PO EVERY 6 HOURS January 01, 2019 12:00am January 08, 2019 2:42pm for 10 days cyclobenzaprine hydrochloride 10 mg oral tablet (11 sources) Muscle Relaxant Start: 08-27-2020 End: 09-08-2020 take 1 tablet by mouth three times daily as needed for muscle spasms cyclobenzaprine (FLEXERIL) 10 MG tablet Take 1 tablet by mouth 3 times daily as needed for Muscle spasms 20 tablet 0 08/29/2020 09/08/2020 1 ml HYDROmorphone hydrochloride 1 mg/ml cartridge (1 source) Opioid Agonist Start: 08-27-2020 End: 08-28-2020 HYDROmorphone (DILAUDID) injection 0.5 mg 3 ml insulin isophane, human 70 unt/ml / insulin, regular, human 30 unt/ml pen injector (20 sources) Insulin Start: 11-19-2024 insulin NPH-insulin regular 70/30 (HUMULIN 70/30 U-100 KWIKPEN) 100 unit/mL (70-30) pen While on steroids: Administer 70 units with breakfast and 50 units with dinner If steroids stopped: Administer 24 units with breakfast and 16 units with dinner 45 mL 11/19/2024 3:56 PM EDT 11/19/2024 Active Start: 09-07-2024 insulin NPH-in sulin regular 70/30 100 unit/mL (70-30) pen Indications: Poorly control type 2 diabetes mellitus (HCC) Inject 24 units before breakfast and 16 units before dinner. 30 mL 4 09/07/2024 Suspended Start: 09-07-2024 insulin NPH-in sulin regular 70/30 100 unit/mL (70-30) pen Indications: Poorly control type 2 diabetes mellitus (HCC) Inject 24 units before breakfast and 16 units before dinner. 30 mL 4 09/07/2024 Active 3 ml insulin aspart, human 100 unt/ml pen injector (17 sources) Insulin Analog Start: 08-24-2020 End: 08-13-2021 Insulin Aspart U-100 100 UNITS/ML insulin pen Discontinued 12 U SC 3 TIMES DAILY WITH MEALS August 24, 2020 9:07am August 13, 2021 3:21pm Start: 08-24-2020 End: 08-13-2021 Insulin Aspart U-100 Discont inued 12 UNITS SC 3 TIMES DAILY WITH MEALS August 24, 2020 9:07am August 13, 2021 3:21pm Start: 03-06-2018 End: 09-07-2024 insulin aspart U-100 (NOVOLO G FLEXPEN U-100 INSULIN) 100 unit/mL inpn Indications: Uncontrolled type 2 diabetes mellitus without complication, with long-term current use of insulin Take 12 units before meals 5 Pen 1 03/06/2018 09/07/2024 Discontinued Start: 02-06-2015 End: 08-24-2020 inject 12 [IU] by subcutaneous injection three times daily at mealtime Insulin Aspart U-100 100 UNITS/ML insulin pen Discontinued 12 U subcut 3 TIMES DAILY WITH MEALS February 06, 2015 12:00am August 24, 2020 9:07am Start: 02-06-2015 End: 08-24-2020 inject 12 [IU] by subcutaneous injection three times daily at mealtime Insulin Aspart U-100 Discontinued 12 UNITS subcut 3 TIMES DAILY WITH MEALS February 06, 2015 12:00am August 24, 2020 9:07am End: 08-29-2020 insulin aspart (NOVOLOG) 100 UNIT/ML injection Inject 12 Units into the skin 3 times daily (before meals). 0 08/29/2020 Discontinued (Stop Taking at Discharge) 1 ml ketorolac tromethamine 30 mg/ml cartridge (1 source) Nonsteroidal Anti-inflammatory Drug, Cyclooxygenase Inhibitor Start: 02-07-2021 End: 02-07-2021 ketorolac (TORADOL) injection 15 mg lisinopril 5 mg oral tablet (20 sources) Angiotensin Converting Enzyme Inhibitor Start: 03-06-2018 take 1 tablet by mouth once daily lisinopril (ZESTRIL, PRINIVIL) 5 mg tablet Indications: Essential hypertension Take 1 tablet by mouth once daily. 30 tablet 3 03/06/2018 Suspended 50 ml magnesium sulfate 40 mg/ml injection (1 source) Start: 08-27-2020 End: 08-27-2020 magnesium sulfate 2000 mg in 50 mL IVPB premix 1 ml morphine sulfate 4 mg/ml injection (1 source) Opioid Agonist Start: 02-07-2021 End: 02-07-2021 morphine sulfate (PF) injection 4 mg piperacillin 3000 mg / tazobactam 375 mg injection (1 source) Penicillin-class Antibacterial, beta Lactamase Inhibitor Start: 11-10-2024 inject 50 mL intravenously every six hours piperacillin-tazo bactam (ZOSYN) 3.375 gram/50 mL in dextrose (iso-osmotic) Inject 50 mL intravenously every 6 hours. 11/10/2024 Suspended regular insulin, human 100 unt/ml injectable solution (1 source) Insulin Start: 09-13-2020 End: 09-13-2020 insulin regular (HUMULIN R;NOVOLIN R) injection 10 Units rivaroxaban 15 mg oral tablet (3 sources) Factor Xa Inhibitor Start: 04-05-2020 End: 04-26-2020 Xarelto 15 mg oral tablet Dose : 15 mg = 1 tab(s), Oral, BID, with food, # 42 tab(s), 0 Refill(s), Pharmacy: [facility] [place] [id number] [address] [facility], 170.2, cm, 04/05/20 4:32:00 EDT, Height, 68.2, kg, 04/05/20 4:32:00 EDT, Dosing Weight Start Date: 04/05/20 Stop Date: 04/26/20 Status: Ordered 50 ml sodium chloride 9 mg/ml injection (20 sources) Start: 02-07-2021 End: 02-07-2021 0.9 % sodium chloride bolus Start: 09-18-2020 End: 09-22-2020 sodium chloride flush 0.9 % injection 10 mL Start: 09-15-2020 End: 09-17-2020 sodium chloride flush 0.9 % injection 10 mL Start: 09-13-2020 End: 09-13-2020 0.9 % sodium chloride bolus Start: 09-13-2020 End: 09-14-2020 sodium chloride flush 0.9 % injection 10 mL Start: 09-06-2020 End: 09-11-2020 sodium chloride flush 0.9 % injection 10 mL Start: 09-02-2020 End: 09-05-2020 sodium chloride flush 0.9 % injection 10 mL Start: 08-29-2020 End: 09-01-2020 sodium chloride flush 0.9 % injection 10 mL Start: 08-26-2020 10 mL, Intrave nous, EVERY 12 HOURS SCHEDULED (2 times per day), First dose on Tue08/26/20 at 2245 Start: 08-26-2020 take 10 mL intraveno us route once as needed 10 mL, Intravenous, PRN, Line Care, After every IV line use, Starting Tue08/26/20 at 2215 traMADol hydrochloride 50 mg oral tablet (12 sources) Opioid Agonist Start: 08-30-2024 End: 09-13-2024 take 1 tablet by mouth every six hours as needed for pain traMADol (ULTRAM) 50 mg tablet Indications: Cancer of skin of left forearm Take 1 tablet by mouth every 6 hours as needed for pain for up to 14 days. 56 tablet 08/30/2024 09/12/2024 Discontinued Start: 02-07-2021 End: 02-10-2021 traMADol (ULTRAM) 50 MG tabl et Indications: Right flank pain Take 1 tablet by mouth every 4 hours as needed for Pain for up to 3 days. Intended supply: 3 days. Take lowest dose possible to manage pain 12 tablet 0 02/07/2021 02/10/2021 Active Problems Active Problems Problem Classification Problem Date Documented Date Episodic/Chronic Abdominal pain (1 source) Right flank pain; Translations: [Unspecified abdominal pain] Episodic Bacterial infection; unspecified site (20 sources) Streptococcus agalactiae infection; Translations: [Streptococcal infection, unspecified site] 08-27-2020 Episodic Biliary tract disease (20 sources) Cholecystitis; Translations: [Cholecystitis, unspecified] 08-26-2020 Episodic Cancer of bronchus; lung (8 sources) Small cell carcinoma of lung; Translations: [Malignant neoplasm of upper lobe, right bronchus or lung] Onset: 11-14-2024 11-15-2024 Chronic Cancer; other and unspecified primary (3 sources) H/O: malignant neoplasm; Translations: [History of malignant neoplasm] Episodic Chronic obstructive pulmonary disease and bronchiectasis (20 sources) Chronic obstructive lung disease; Translations: [Chronic obstructive pulmonary disease, unspecified] Onset: 03-17-2016 08-26-2020 Chronic Coagulation and hemorrhagic disorders (3 sources) Thrombocytopenia due to drugs; Translations: [Other secondary thrombocytopenia] 08-22-2020 Episodic Complication of device; implant or graft (1 source) Infection associated with device; Translations: [Port or reservoir infection, subsequent encounter] Episodic Diabetes mellitus with complications (9 sources) Type 2 diabetes mellitus; Translations: [Type 2 diabetes mellitus with hyperglycemia] Onset: 09-07-2024 09-07-2024 Chronic Diabetes mellitus without complication (19 sources) Diabetes mellitus; Translations: [Type 2 diabetes mellitus] Onset: 11-12-2024 01-06-2014 Chronic Diabetes mellitus without complication (7 sources) Hyperglycemia; Translations: [Hyperglycemia, unspecified] Onset: 04-26-2022 Episodic Disorders of teeth and jaw (4 sources) Abscess of mandible; Translations: [Inflammatory conditions of jaws] Onset: 07-14-2024 08-22-2020 Episodic Comment on above: right SQ overlying m andibular E Codes: Adverse effects of medical drugs (1 source) Adverse effect of glucocorticoids and synthetic analogues, initial encounter; Translations: [Steroid-induced hyperglycemia] Onset: 11-12-2024 Episodic Essential hypertension (20 sources) Hypertensive disorder; Translations: [Essential hypertension] Onset: 05-01-2015 08-26-2020 Chronic Fluid and electrolyte disorders (13 sources) Acute hyponatremia; Translations: [Hypo-osmolality and hyponatremia] Onset: 09-07-2024 09-04-2024 Episodic Hypertension with complications and secondary hypertension (1 source) Hypertensive urgency ; Translations: [Hypertensive urgency] Chronic Lymphadenitis (20 sources) Lymphadenopathy; Translations: [Generalized enlarged lymph nodes] Onset: 10-01-2024 10-01-2024 Episodic Maintenance chemotherapy; radiotherapy (2 sources) Patient encounter status; Translations: [Encounter for antineoplastic immunotherapy] Onset: 10-23-2024 10-23-2024 Chronic Mycoses (7 sources) Candidiasis of mouth; Translations: [Candidal stomatitis] Onset: 11-15-2024 11-15-2024 Episodic Non-Hodgkin`s lymphoma (20 sources) Non-Hodgkin's lymphoma of nasopharynx; Translations: [Malignant lymphoma (clinical)] Onset: 10-01-2024 08-26-2020 Chronic Non-Hodgkin`s lymphoma (3 sources) History of malignant lymphoma; Translations: [Personal history of non-Hodgkin lymphomas] Onset: 09-14-2024 09-12-2024 Episodic Nonspecific chest pain (6 sources) Chest pain; Translations: [Chest pain, unspecified] Onset: 11-16-2024 11-18-2024 Episodic Other aftercare (4 sources) Under care of palliative care physician; Translations: [Encounter for palliative care] 09-12-2024 Episodic Other aftercare (8 sources) Drug therapy finding; Translations: [terminal system operator (current) use of opiate analgesic] Onset: 11-12-2024 10-10-2024 Episodic Other aftercare (7 sources) Insulin dose changed; Translations: [FPC (current) use of insulin] Onset: 11-12-2024 11-14-2024 Episodic Other aftercare (1 source) FPC (current) use of insulin; Translations: [Type 2 diabetes mellitus without complication, with long-term current use of insulin (HCC)] Onset: 11-14-2024 Episodic Other aftercare (1 source) Encounter for palliative care; Translations: [Palliative care by specialist] Onset: 10-10-2024 Episodic Other aftercare (1 source) terminal system operator (current) use of opiate analgesic; Translations: [Opioid use agreement exists] Onset: 09-12-2024 Episodic Other connective tissue disease (3 sources) Muscle pain; Translations: [Myalgia, unspecified site] 12-23-2018 Episodic Other fractures (7 sources) Fracture of multiple ribs ; Translations: [Multiple fractures of ribs, unspecified side, initial encounter for closed fracture] Onset: 11-13-2024 11-14-2024 Episodic Other lower respiratory disease (3 sources) History of chronic obstructive airway disease; Translations: [History of chronic obstructive lung disease] Episodic Other lower respiratory disease (2 sources) Lung mass; Translations: [Other nonspecific abnormal finding of lung field] 09-17-2024 Episodic Other lower respiratory disease (20 sources) Other nonspecific abnormal finding of lung field; Translations: [Swelling, mass, or lump in chest] Onset: 10-01-2024 09-28-2024 Episodic Other nervous system disorders (8 sources) Pain due to neoplastic disease; Translations: [Neoplasm related pain (acute) (chronic)] 08-30-2024 Chronic Other nervous system disorders (20 sources) Chronic low back pain; Translations: [Other chronic pain] Onset: 03-17-2016 03-17-2016 Chronic Other nervous system disorders (7 sources) Vasogenic cerebral edema; Translations: [Cerebral edema] Onset: 11-12-2024 5 Chronic Other nervous system disorders (1 source) Other specified disorders of brain; Translations: [Brain mass] Onset: 11-09-2024 Chronic Other nervous system disorders (1 source) Neoplasm related pain (acute) (chronic); Translations: [Cancer related pain] Onset: 09-04-2024 Chronic Other non-epithelial cancer of skin (20 sources) Malignant neoplasm of skin of forearm; Translations: [Unspecified malignant neoplasm of skin of left upper limb, including shoulder] Onset: 09-03-2024 08-30-2024 Episodic Other non-traumatic joint disorders (3 sources) Joint pain; Translations: [Pain in unspecified joint] 12-23-2018 Episodic Other nutritional; endocrine; and metabolic disorders (3 sources) H/O: diabetes mellitus; Translations: [History of diabetes mellitus] Episodic Other skin disorders (3 sources) Mass of neck; Translations: [Neck mass] Episodic Other skin disorders (6 sources) Mass of skin; Translations: [Localized swelling, mass and lump, unspecified] 08-09-2024 Episodic Other skin disorders (3 sources) Mass of upper limb; Translations: [Localized swelling, mass and lump, left upper limb] 08-16-2024 Episodic Other upper respiratory disease (3 sources) Disorder of pharynx; Translations: [Lesion of nasopharynx] Episodic Other upper respiratory infections (1 source) Acute upper respiratory infection; Translations: [Acute upper respiratory infection, unspecified] Onset: 04-26-2022 Episodic Otitis media and related conditions (1 source) Acute suppurative otitis media without spontaneous rupture of ear drum, right ear; Translations: [Non-recurrent acute suppurative otitis media of right ear without spontaneous rupture of tympanic membrane] Onset: 05-22-2022 Episodic Juanita-; endo-; and myocarditis; cardiomyopathy (except that caused by tuberculosis or sexually transmitted disease) (20 sources) Endocarditis; Translations: [Endocarditis, valve unspecified] Onset: 08-26-2020 08-26-2020 Chronic Juanita-; endo-; and myocarditis; cardiomyopathy (except that caused by tuberculosis or sexually transmitted disease) (1 source) Acute bacterial endocarditis; Translations: [Acute bacterial endocarditis] Episodic Pneumonia (except that caused by tuberculosis or sexually transmitted disease) (8 sources) Pneumonia; Translations: [Pneumonia, unspecified organism] Onset: 11-09-2024 11-14-2024 Episodic Residual codes; unclassified (6 sources) Drug compliance poor; Translations: [Patient's other noncompliance with medication regimen] 08-26-2020 Episodic Residual codes; unclassified (1 source) Tobacco use and exposure - finding; Translations: [Tobacco use] 08-26-2020 Episodic Residual codes; unclassified (7 sources) Delirium; Translations: [Disorientation, unspecified] Onset: 11-12-2024 11-14-2024 Episodic Residual codes; unclassified (20 sources) Drug compliance poor; Translations: [Poor compliance with medication] 08-26-2020 Screening and history of mental health and substance abuse codes (20 sources) Tobacco use and exposure - finding; Translations: [Tobacco use] 08-26-2020 Chronic Screening and history of mental health and substance abuse codes (20 sources) H/O: psychiatric disorder; Translations: [Personal history of other mental and behavioral disorders] 08-26-2020 Episodic Secondary malignancies (9 sources) Secondary malignant neoplasm of lung; Translations: [Secondary malignant neoplasm of unspecified lung] Onset: 11-12-2024 10-29-2024 Chronic Secondary malignancies (7 sources) Secondary malignant neoplasm of brain; Translations: [Secondary malignant neoplasm of brain] Onset: 11-12-2024 11-15-2024 Chronic Secondary malignancies (7 sources) Secondary malignant neoplasm of liver; Translations: [Secondary malignant neoplasm of liver and intrahepatic bile duct] Onset: 11-12-2024 11-15-2024 Chronic Secondary malignancies (1 source) Secondary malignant neoplasm of brain; 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)] Onset: 11-18-2024 Chronic Septicemia (except in labor) (20 sources) Sepsis; Translations: [Sepsis, unspecified organism] 08-26-2020 Episodic Spondylosis; intervertebral disc disorders; other back problems (20 sources) Degeneration of lumbar intervertebral disc; Translations: [DDD (degenerative disc disease), lumbar] Onset: 03-18-2016 06-16-2021 Chronic Substance-related disorders (20 sources) Amphetamine abuse; Translations: [Other stimulant abuse, uncomplicated] Onset: 05-01-2015 08-26-2020 Chronic Superficial injury; contusion (3 sources) Contusion of rib; Translations: [Contusion of left front wall of thorax, initial encounter] 03-05-2020 Episodic Thyroid disorders (7 sources) Thyroid nodule; Translations: [Nontoxic single thyroid nodule] Onset: 11-13-2024 11-13-2024 Chronic Unclassified (1 source) Unknown / UNK(Unknown) Onset: 12-23-2016 Unclassified (1 source) Repeated prescription; Translations: [Encounter for medication refill] Unclassified (1 source) Patient encounter status; Translations: [Encounter for long-term (current) use of antibiotics] Unclassified (20 sources) Type 2 diabetes mellitus without complication; Translations: [Uncontrolled type 2 diabetes mellitus without complication, with long-term current use of insulin] Onset: 03-22-2016 03-22-2016 Unclassified (1 source) Call for appointment Unclassified (1 source) Other specified neoplasm of uncertain behavior of connective and other soft tissue; Translations: [Other specified neoplasm of uncertain behavior of connective and other soft tissue] Onset: 10-20-2024 Unclassified (1 source) Consult Onset: 11-22-2024 Viral infection (1 source) Disseminated herpes zoster; Translations: [Disseminated zoster] Episodic Past or Other Problems Problem Classification Problem Date Documented Date Episodic/Chronic Fracture of lower limb (1 source) Displaced bicondylar fracture of unspecified tibia, initial encounter for closed fracture; Translations: [Tibial plateau fracture, unspecified laterality, closed, initial encounter] Onset: 01-20-2022 Episodic Neoplasms of unspecified nature or uncertain behavior (12 sources) Neoplastic disease; Translations: [Neoplasm of unspecified behavior of bone, soft tissue, and skin] Onset: 04-30-2024 Episodic Other skin disorders (1 source) Localized swelling, mass and lump, unspecified; Translations: [Localized superficial swelling, mass, or lump] Onset: 08-16-2024 Episodic Residual codes; unclassified (20 sources) Noncompliance with treatment; Translations: [Noncompliance] Onset: 06-05-2018 06-05-2018 Episodic Spondylosis; intervertebral disc disorders; other back problems (20 sources) Chronic low back pain; Translations: [Lumbago with sciatica, right side] Onset: 03-17-2016 03-17-2016 Episodic Unclassified (1 source) C2 CERVICAL FRACTURE Onset: 12-23-2016 Unclassified (3 sources) No history of procedure; Translations: [History of No pertinent past surgical history] Unclassified (3 sources) port placement 01-17-2022 Comment on above: removed 2020 NEGATED: Highlighted row has not occurred!Residual codes; unclassified (6 sources) Disease Episodic Results Test Name Value Interpretation Reference Range Facility [facility] 11-22-2024 CNPN Normal [facility] CNPNon 11-20-2024 CNPN Normal [facility] CASE MANAGEMon 11-19-2024 CASE MANAGEM Normal [facility] CASE MANAGEM Normal [facility] CBC panel Auto (Bld)on 11-19 Erythrocyte distribution width (RBC) [Ratio] 16.8 % High 11.5-15.0 [facility] Comment on above: Order Comment: Speci men Type: BLOOD SPECIMENOrdering Facility: [facility] Address: [address] [place] [address] Performed By: #### 5 8410-2 ####[facility] LAB[facility]IA [id number] [place] [address] [place] Hematocrit (Bld) [Volume fraction] 29.4 % Low 36.0-46.0 [facility] Comment on above: Order Comment: Speci men Type: BLOOD SPECIMENOrdering Facility: [facility] Address: [address] [place] [address] Performed By: #### 5 [id number] ####[facility] LAB[facility] [id number] [place] [address] [place] Hemoglobin (Bld) [Mass/Vol] 9.5 g/dL Low 11.5-15.5 [facility] Comment on above: Order Comment: Speci men Type: BLOOD SPECIMENOrdering Facility: [facility] Address: [address] [place] [address] Performed By: #### 5 [id number] ####[facility] LABCLIA [id number] [place] [id number] [place] MCH (RBC) [Entitic mass] 27.1 pg Normal 26.0-34.0 [facility] Comment on above: Order Comment: Speci men Type: BLOOD SPECIMENOrdering Facility: [facility] Address: [address] [place] [address] Performed By: #### 5 [id number] ####[facility] LABIA [id number] [place] [address] [place] MCHC (RBC) [Mass/Vol] 32.3 g/dL Normal 30.5-36.0 [facility] Comment on above: Order Comment: Speci men Type: BLOOD SPECIMENOrdering Facility: [facility] Address: [address] [place] [address] Performed By: #### 5 [id number] ####[facility] [id number] [place] [address] [place] MCV (RBC) [Entitic vol] 83.8 fL Normal 80.0-100.0 [facility] Comment on above: Order Comment: Speci men Type: BLOOD SPECIMENOrdering Facility: [facility] Address: [address] [place] [address] Performed By: #### 5 8410-2 ####[facility] [id number] [place] [address] [place] Nucleated RBC (Bld) [#/Vol] 10*3/uL Normal <0.01 [facility] Comment on above: Order Comment: Speci men Type: BLOOD SPECIMENOrdering Facility: [facility] Address: [address] [place] [address] Performed By: #### 5 8410-2 ####[facility] [id number] [place] [address] [place] Platelet mean volume (Bld) [Entitic vol] 10.0 fL Normal 9.0-12.7 [facility] Comment on above: Order Comment: Speci men Type: BLOOD SPECIMENOrdering Facility: [facility] Address: [address] [place], [place] [address] Performed By: #### 5 8410-2 ####[facility] LABCLIA [id number] [place] [id number] [place] Platelets (Bld) [#/Vol] 236 10*3/uL Normal 150-400 [facility] Comment on above: Order Comment: Speci men Type: BLOOD SPECIMENOrdering Facility: [facility] Address: [address] [place] [address] Performed By: #### 5 8410-2 ####[facility] LABIA [id number] [place] [address] [place] RBC (Bld) [#/Vol] 3.51 10*6/uL Low 3.90-5.20 [facility] Comment on above: Order Comment: Speci men Type: BLOOD SPECIMENOrdering Facility: [facility] Address: [address] [place] [address] Performed By: #### 5 8410-2 ####[facility] LABIA [id number] [place] [address] [place] WBC (Bld) [#/Vol] 16.07 10*3/uL High 3.70-11.00 [facility] Comment on above: Order Comment: Speci men Type: BLOOD SPECIMENOrdering Facility: [facility] Address: [address] [place] [address] Performed By: #### 5 8410-2 ####[facility] LABIA [id number] [place] [id number] [place] CNDSon 11-19-2024 CNDS Normal [facility] CNPNon 11-19-2024 CNPN Normal [facility] CONSULT PROGon 11-19-2024 CONSULT PROG Normal [facility] Comprehensive metabolic 2000 panelon 11-19-2024 Albumin [Mass/Vol] 2.8 g/dL Low 3.9-4.9 [facility] Comment on above: Order Comment: Speci men Type: BLOOD SPECIMENOrdering Facility: [facility] Address: [address] [place], [place] [address] Performed By: #### 2 777-1, 3084-1, 2532-0, 41123-5 ####[facility] LABCLIA [id number] [address] [address] [place] ALP [Catalytic activity/Vol] 275 U/L High 34-123 [facility] Comment on above: Order Comment: Speci men Type: BLOOD SPECIMENOrdering Facility: [facility] Address: [address] [place], [place] [address] Performed By: #### 2 777-1, 3084-1, 2531-0, 49826-9 ####[facility] LABIA [id number] [place] [address] [place] ALT [Catalytic activity/Vol] 48 U/L High 7-38 [facility] Comment on above: Order Comment: Speci men Type: BLOOD SPECIMENOrdering Facility: [facility] Address: [address] [place], [place] [address] Performed By: #### 2 777-1, 3084-1, 2531-0, 31208-9 ####[facility] LABIA [id number] [address] [address] [place] Anion gap [Moles/Vol] 12 mmol/L Normal 8-15 [facility] Comment on above: Order Comment: Speci men Type: BLOOD SPECIMENOrdering Facility: [facility] Address: [address] [place], [place] [address] Performed By: #### 2 777-1, 3084-1, 2531-0, 55891-6 ####[facility] LABCLIA [id number] [address] [address] [place] AST [Catalytic activity/Vol] 72 U/L High 13-35 [facility] Comment on above: Order Comment: Speci men Type: BLOOD SPECIMENOrdering Facility: [facility] Address: [address] [place] [address] Performed By: #### 2 777-1, 3084-1, 2531-0, 16767-8 ####[facility] LABCLIA [id number] [facility] [address] [address] [place] Bilirubin [Mass/Vol] 0.4 mg/dL Normal 0.2-1.3 [facility] Comment on above: Order Comment: Speci men Type: BLOOD SPECIMENOrdering Facility: [facility] Address: [address] [place], [place] [address] Performed By: #### 2 777-1, 3084-1, 2531-0, 23538-0 ####[facility] LABCLIA [id number] [address] [address] [place] Calcium [Mass/Vol] 9.6 mg/dL Normal 8.5-10.2 [facility] Comment on above: Order Comment: Speci men Type: BLOOD SPECIMENOrdering Facility: [facility] Address: [address] [place], [place] [address] Performed By: #### 2 777-1, 3084-1, 2531-0, ####[facility] LABCLIA [id number] [facility] [address] [address] [place] Chloride [Moles/Vol] 99 mmol/L Normal 98-107 [facility] Comment on above: Order Comment: Speci men Type: BLOOD SPECIMENOrdering Facility: [facility] Address: [address] [place] [address] Performed By: #### 2 777-1, 3084-1, 2531-0, 30960-7 ####[facility] LABCLIA [id number] [facility] [address] [address] [place] CO2 [Moles/Vol] 27 mmol/L Normal 22-30 [facility] Comment on above: Order Comment: Speci men Type: BLOOD SPECIMENOrdering Facility: [facility] Address: [address] [place] [id number] Performed By: #### 2 777-1, 3084-1, 2532-0, 54084-4 ####[facility] LABIA [id number] [address] [address] [place] Creatinine [Mass/Vol] 0.69 mg/dL Normal 0.58-0.96 [facility] Comment on above: Order Comment: Speci men Type: BLOOD SPECIMENOrdering Facility: [facility] Address: [address] [place], [place] [address] Performed By: #### 2 777-1, 3084-1, 253-0, 17196-7 ####[facility] LABIA [id number] [address] [address] [place] Creatinine and Glomerular filtration rate.predicted panel (S/P/Bld) 96 mL/min/1.73m??? Normal >=60 [facility] Comment on above: Order Comment: Speci men Type: BLOOD SPECIMENOrdering Facility: [facility] Address: [address] [place] [address] Result Comment: Cornell mated Glomerular Filtration Rate (eGFR) is calculated using the 2020 CKD-EPI creatinine equation. This equation utilizes serum creatinine, sex, and age as parameters. The creatinine assay has traceable calibration to isotope dilution-mass spectrometry. Refer to KDIGO guidelines for clinical interpretation. In patients with unstable renal function, e.g. those with acute kidney injury, the eGFR may not accurately reflect actual GFR. Performed By: #### 2 777-1, 3084-1, 253-0, 78355-9 ####[facility] LABIA [id number] [address] [address] [place] Glucose [Mass/Vol] 56 mg/dL Low 74-99 [facility] Comment on above: Order Comment: Speci men Type: BLOOD SPECIMENOrdering Facility: [facility] Address: [address] [place] [address] Result Comment: The [place] Diabetes [employer] (ADA) provides guidance for cutoff values for fasting glucose and random glucose. The ADA defines fasting as no caloric intake for at least 8 hours. Fasting plasma glucose results between 100 to 125 mg/dL indicate increased risk for diabetes (prediabetes).Fasting plasma glucose results greater than or equal to 126 mg/dL meet the criteria for diagnosis of diabetes. In the absence of unequivocal hyperglycemia, results should be confirmed by repeat testing. In a patient with classic symptoms of hyperglycemia or hyperglycemic crisis, random plasma glucose results greater than or equal to 200 mg/dL meet the criteria for diagnosis of diabetes.Reference: Standards of Medical Care in Diabetes 2016, [place] [employer]. Diabetes Care. 2016.39(Suppl 1). Performed By: #### 2 777-1, 3084-1, 0, ####[facility] LABCLIA [id number] [place] [address] [place] Potassium [Moles/Vol] 4.8 mmol/L Normal 3.7-5.1 [facility] Comment on above: Order Comment: Speci men Type: BLOOD SPECIMENOrdering Facility: [facility] Address: [address] [place] [id number] Performed By: #### 2 777-1, 3084-1, 0, ####[facility] LABIA [id number] [place] [address] [place] Protein [Mass/Vol] 5.5 g/dL Low 6.3-8.0 [facility] Comment on above: Order Comment: Speci men Type: BLOOD SPECIMENOrdering Facility: [facility] Address: [address] [place] [phone] Performed By: #### 2 777-1, 3084-1, 0, ####[facility] LABCLIA [id number] [place] [address] [place] Sodium [Moles/Vol] 138 mmol/L Normal 136-144 [facility] Comment on above: Order Comment: Speci men Type: BLOOD SPECIMENOrdering Facility: [facility] Address: [address] [place] [address] Performed By: #### 2 777-1, 3084-1, 2-0, 92581-5 ####[facility] LABCLIA [id number] [address] [address] [place] Urea nitrogen [Mass/Vol] 23 mg/dL High 7-21 [facility] Comment on above: Order Comment: Speci men Type: BLOOD SPECIMENOrdering Facility: [facility] Address: [address] [place], [place] [address] Performed By: #### 2 777-1, 3084-1, 2532-0, 45513-7 ####[facility] LABCLIA [id number] [address] [address] [place] Albumin [Mass/Vol] 2.8 g/dL Low 3.9-4.9 [facility] Comment on above: Order Comment: Speci men Type: BLOOD SPECIMENOrdering Facility: [facility] Address: [address] [place], [place] [address] Performed By: #### 1 9123-9, 13341-7, 277-1, 3083-1 ####[facility]IA [id number] [address] [place] [address] [place] ALP [Catalytic activity/Vol] 280 U/L High 34-123 [facility] Comment on above: Order Comment: Speci men Type: BLOOD SPECIMENOrdering Facility: [facility] Address: [address] [place] [address] Performed By: #### 1 9123-9, 28934-2, 277-1, 3083-1 ####[facility] LABCLIA [id number] [facility] [id number] [address] [place] ALT [Catalytic activity/Vol] 52 U/L High 7-38 [facility] Comment on above: Order Comment: Speci men Type: BLOOD SPECIMENOrdering Facility: [facility] Address: [address] [place], [place] [address] Performed By: #### 1 9123-9, 09650-7, 2777-1, 3084-1 ####[facility] LABCLIA [id number] [place] [address] [place] Anion gap [Moles/Vol] 11 mmol/L Normal 8-15 [facility] Comment on above: Order Comment: Speci men Type: BLOOD SPECIMENOrdering Facility: [facility] Address: [address] [place] [address] Performed By: #### 1 9123-9, 99060-9, 2777-1, 3084-1 ####[facility] LABCLIA [id number] [place] [address] [place] AST [Catalytic activity/Vol] 68 U/L High 13-35 [facility] Comment on above: Order Comment: Speci men Type: BLOOD SPECIMENOrdering Facility: [facility] Address: [address] [place], [place] [address] Performed By: #### 1 9123-9, 93804-4, 2777-1, 3084-1 ####[facility] LABCLIA [id number] [place] [address] [place] Bilirubin [Mass/Vol] 0.4 mg/dL Normal 0.2-1.3 [facility] Comment on above: Order Comment: Speci men Type: BLOOD SPECIMENOrdering Facility: [facility] Address: [address] [place], [place] [address] Performed By: #### 1 9123-9, 24568-2, 2777-1, 3084-1 ####[facility] LABCLIA [id number] [place] [address] [place] Calcium [Mass/Vol] 9.5 mg/dL Normal 8.5-10.2 [facility] Comment on above: Order Comment: Speci men Type: BLOOD SPECIMENOrdering Facility: [facility] Address: [address] [place], [place] [address] Performed By: #### 1 9123-9, 10248-9, 2777-1, 3084-1 ####[facility] LABCLIA [id number] [address] [address] [place] Chloride [Moles/Vol] 98 mmol/L Normal 98-107 [facility] Comment on above: Order Comment: Speci men Type: BLOOD SPECIMENOrdering Facility: [facility] Address: [address] [place] [address] Performed By: #### 1 9123-9, 91942-4, 2777-1, 3084-1 ####[facility] LABCLIA [id number] [place] [address] [place] CO2 [Moles/Vol] 27 mmol/L Normal 22-30 [facility] Comment on above: Order Comment: Speci men Type: BLOOD SPECIMENOrdering Facility: [facility] Address: [address] [place] [address] Performed By: #### 1 9123-9, 21898-0, 2777-, 3084-1 ####[facility] LABCLIA [id number] [address] [address] [place] Creatinine [Mass/Vol] 0.57 mg/dL Low 0.58-0.96 [facility] Comment on above: Order Comment: Speci men Type: BLOOD SPECIMENOrdering Facility: [facility] Address: [address] [place], [place] [address] Performed By: #### 1 9123-9, 07760-0, 2777-1, 3084-1 ####[facility] LABCLIA [id number] [address] [address] [place] Creatinine and Glomerular filtration rate.predicted panel (S/P/Bld) 100 mL/min/1.73m??? Normal >=60 [facility] Comment on above: Order Comment: Bia benitez Type: BLOOD SPECIMENOrdering Facility: [facility] Address: [address] [place] [address] Result Comment: Cornell mated Glomerular Filtration Rate (eGFR) is calculated using the 2020 CKD-EPI creatinine equation. This equation utilizes serum creatinine, sex, and age as parameters. The creatinine assay has traceable calibration to isotope dilution-mass spectrometry. Refer to KDIGO guidelines for clinical interpretation. In patients with unstable renal function, e.g. those with acute kidney injury, the eGFR may not accurately reflect actual GFR. Performed By: #### 1 9123-9, 00457-6, 7-, 308-1 ####[facility] LABIA [id number] [place] [address] [place] Glucose [Mass/Vol] 114 mg/dL High 74-99 [facility] Comment on above: Order Comment: Bia benitez Type: BLOOD SPECIMENOrdering Facility: [facility] Address: [address] [place] [address] Result Comment: The [place] Diabetes [employer] (ADA) provides guidance for cutoff values for fasting glucose and random glucose. The ADA defines fasting as no caloric intake for at least 8 hours. Fasting plasma glucose results between 100 to 125 mg/dL indicate increased risk for diabetes (prediabetes).Fasting plasma glucose results greater than or equal to 126 mg/dL meet the criteria for diagnosis of diabetes. In the absence of unequivocal hyperglycemia, results should be confirmed by repeat testing. In a patient with classic symptoms of hyperglycemia or hyperglycemic crisis, random plasma glucose results greater than or equal to 200 mg/dL meet the criteria for diagnosis of diabetes.Reference: Standards of Medical Care in Diabetes 2016, [place] [employer]. Diabetes Care. 2016.39(Suppl 1). Performed By: #### 1 9123-9, 76266-3, 2776-, 3083-1 ####[facility] LABCLIA [id number] [place] [address] [place] Potassium [Moles/Vol] 4.3 mmol/L Normal 3.7-5.1 [facility] Comment on above: Order Comment: Speci men Type: BLOOD SPECIMENOrdering Facility: [facility] Address: [address] [place], [place] [address] Performed By: #### 1 9123-9, 47620-0, 2776-, 3083- ####[facility] LABCLIA [id number] [address] [place] [address] [place] Protein [Mass/Vol] 5.8 g/dL Low 6.3-8.0 [facility] Comment on above: Order Comment: Speci men Type: BLOOD SPECIMENOrdering Facility: [facility] Address: [address] [place] [address] Performed By: #### 1 9123-9, 82662-2, 2776-, 3083- ####[facility]IA [id number] [place] [address] [place] Sodium [Moles/Vol] 136 mmol/L Normal 136-144 [facility] Comment on above: Order Comment: Speci men Type: BLOOD SPECIMENOrdering Facility: [facility] Address: [address] [place] [address] Performed By: #### 1 9123-9, 98552-6, 2776-, 3083- ####[facility] LABIA [id number] [address] [address] [place] Urea nitrogen [Mass/Vol] 21 mg/dL Normal 7-21 [facility] Comment on above: Order Comment: Speci men Type: BLOOD SPECIMENOrdering Facility: [facility] Address: [address] [place], [place] [address] Performed By: #### 1 9123-9, 25039-2, 277-, 308-1 ####[facility]IA [id number] [address] [place] [address] [place] LDH SerPl-cCncon 11-19-2024 LDH [Catalytic activity/Vol] 4131 U/L High 135-214 [facility] Comment on above: Order Comment: Speci men Type: BLOOD SPECIMENOrdering Facility: [facility] Address: [address] [place] [address] Performed By: #### 2 777-1, 3084-1, 2532-0, 25711-4 ####[facility] LABCLIA [id number] [address] [address] [place] LDH [Catalytic activity/Vol] 2958 U/L High 135-214 [facility] Comment on above: Order Comment: Speci men Type: BLOOD SPECIMENOrdering Facility: [facility] Address: [address] [place] [address] Performed By: #### 2 532-0 ####[facility] LABCLIA [id number] [place] [address] [place] Magnesium SerPl-ncon 11-19 Magnesium [Mass/Vol] 1.9 mg/dL Normal 1.7-2.3 [facility] Comment on above: Order Comment: Speci men Type: BLOOD SPECIMENOrdering Facility: [facility] Address: [address] [place] [address] Performed By: #### 1 9123-9, 29609-9, 2777-1, 3084-1 ####[facility] [id number] [place] [address] [place] NURSING PROGon 11-19-2024 NURSING PROG Normal [facility] PT EDon 11-19-2024 PT ED Normal [facility] Phosphate SerPl-mCncon 11-19 Phosphate [Mass/Vol] 4.0 mg/dL Normal 2.7-4.8 [facility] Comment on above: Order Comment: Speci men Type: BLOOD SPECIMENOrdering Facility: [facility] Address: [address] [place] [address] Performed By: #### 2 777-1, 3084-1, 2532-0, 65066-3 ####[facility] LABCLIA [id number] [address] [address] [place] Phosphate [Mass/Vol] 3.2 mg/dL Normal 2.7-4.8 [facility] Comment on above: Order Comment: Speci men Type: BLOOD SPECIMENOrdering Facility: [facility] Address: [address] [place], [place] [address] Performed By: #### 1 9123-9, 97046-8, 2777-1, 3084-1 ####[facility] LABCLIA [id number] [address] [address] [place] THERAPY NTon 11-19-2024 THERAPY NT Normal [facility] Urate SerPl-mCncon Urate [Mass/Vol] 2.2 mg/dL Low 2.5-6.6 [facility] Comment on above: Order Comment: Speci men Type: BLOOD SPECIMENOrdering Facility: [facility] Address: [address] [place] [address] Performed By: #### 2 777-1, 3084-1, 2532-0, 23758-3 ####[facility] [id number] [address] [address] [place] Urate [Mass/Vol] 2.4 mg/dL Low 2.5-6.6 [facility] Comment on above: Order Comment: Speci men Type: BLOOD SPECIMENOrdering Facility: [facility] Address: [address] [place], [place] [address] Performed By: #### 1 9123-9, 43387-2, 2777-1, 3084-1 ####[facility] [id number] [address] [address] [place] CBC panel Auto (Bld)on 11-18 Erythrocyte distribution width (RBC) [Ratio] 16.3 % High 11.5-15.0 [facility] Comment on above: Order Comment: Speci men Type: BLOOD SPECIMENOrdering Facility: [facility] Address: [address] [place] [address] Performed By: #### 5 8410-2 ####[facility] [id number] [place] [address] [place] Hematocrit (Bld) [Volume fraction] 29.5 % Low 36.0-46.0 [facility] Comment on above: Order Comment: Speci men Type: BLOOD SPECIMENOrdering Facility: [facility] Address: [address] [place] [address] Performed By: #### 5 8410-2 ####[facility] [id number] [place] [address] [place] Hemoglobin (Bld) [Mass/Vol] 9.5 g/dL Low 11.5-15.5 [facility] Comment on above: Order Comment: Speci men Type: BLOOD SPECIMENOrdering Facility: [facility] Address: [address] [place] [address] Performed By: #### 5 8410-2 ####[facility] [id number] [place] [address] [place] MCH (RBC) [Entitic mass] 27.2 pg Normal 26.0-34.0 [facility] Comment on above: Order Comment: Speci men Type: BLOOD SPECIMENOrdering Facility: [facility] Address: [address] [place] [address] Performed By: #### 5 8410-2 ####[facility] [id number] [place] [address] [place] MCHC (RBC) [Mass/Vol] 32.2 g/dL Normal 30.5-36.0 [facility] Comment on above: Order Comment: Speci men Type: BLOOD SPECIMENOrdering Facility: [facility] Address: [address] [place] [address] Performed By: #### 5 8410-2 ####[facility] LABCLIA [id number] [address], [place] [address] [place] MCV (RBC) [Entitic vol] 84.5 fL Normal 80.0-100.0 [facility] Comment on above: Order Comment: Speci men Type: BLOOD SPECIMENOrdering Facility: [facility] Address: [address] [place] [address] Performed By: #### 5 8410-2 ####[facility] LABIA [id number] [place] [address] [place] Nucleated RBC (Bld) [#/Vol] 10*3/uL Normal <0.01 [facility] Comment on above: Order Comment: Speci men Type: BLOOD SPECIMENOrdering Facility: [facility] Address: [address] [place] [address] Performed By: #### 5 8410-2 ####[facility] LAB[facility] [id number] [place] [address] [place] Platelet mean volume (Bld) [Entitic vol] 10.4 fL Normal 9.0-12.7 [facility] Comment on above: Order Comment: Speci men Type: BLOOD SPECIMENOrdering Facility: [facility] Address: [address] [place] [address] Performed By: #### 5 8410-2 ####[facility] LABIA [id number] [place] [address] [place] Platelets (Bld) [#/Vol] 222 10*3/uL Normal 150-400 [facility] Comment on above: Order Comment: Speci men Type: BLOOD SPECIMENOrdering Facility: [facility] Address: [address] [place] [address] Performed By: #### 5 8410-2 ####[facility] LABCLIA [id number] [place] [address] [place] RBC (Bld) [#/Vol] 3.49 10*6/uL Low 3.90-5.20 [facility] Comment on above: Order Comment: Speci men Type: BLOOD SPECIMENOrdering Facility: [facility] Address: [address] [place] [address] Performed By: #### 5 8410-2 ####[facility] LABCLIA [id number] [place] [address] [place] WBC (Bld) [#/Vol] 15.24 10*3/uL High 3.70-11.00 [facility] Comment on above: Order Comment: Speci men Type: BLOOD SPECIMENOrdering Facility: [facility] Address: [address] [place] [address] Performed By: #### 5 8410-2 ####[facility] LABCLIA [id number] [place] [address] [place] CONSULT PROGon 11-18-2024 CONSULT PROG Normal [facility] Comprehensive metabolic 2000 panelon 11-18-2024 Albumin [Mass/Vol] 2.7 g/dL Low 3.9-4.9 [facility] Comment on above: Order Comment: Speci men Type: BLOOD SPECIMENOrdering Facility: [facility] Address: [address] [place] [address] Performed By: #### 2 4323-8, 3084-1, 2532-0, 2777-1 ####[facility] LABCLIA [id number] [place] [address] [place] ALP [Catalytic activity/Vol] 285 U/L High 34-123 [facility] Comment on above: Order Comment: Speci men Type: BLOOD SPECIMENOrdering Facility: [facility] Address: [address] [place] [address] Performed By: #### 2 4323-8, 3084-1, 2532-0, 2777-1 ####[facility] LABCLIA [id number] [place] [address] [place] ALT [Catalytic activity/Vol] 46 U/L High 7-38 [facility] Comment on above: Order Comment: Speci men Type: BLOOD SPECIMENOrdering Facility: [facility] Address: [address] [place] [address] Performed By: #### 2 4323-8, 3084-1, 2532-0, 2777-1 ####[facility] LABCLIA [id number] [place] [address] [place] Anion gap [Moles/Vol] 11 mmol/L Normal 8-15 [facility] Comment on above: Order Comment: Speci men Type: BLOOD SPECIMENOrdering Facility: [facility] Address: [address] [place] [address] Performed By: #### 2 4323-8, 3084-1, 2532-0, 2777-1 ####[facility] LABCLIA [id number] [place] [address] [place] AST [Catalytic activity/Vol] 60 U/L High 13-35 [facility] Comment on above: Order Comment: Speci men Type: BLOOD SPECIMENOrdering Facility: [facility] Address: [address] [place] [address] Performed By: #### 2 4323-8, 3084-1, 2532-0, 2777-1 ####[facility] LABCLIA [id number] [place] [address] [place] Bilirubin [Mass/Vol] 0.3 mg/dL Normal 0.2-1.3 [facility] Comment on above: Order Comment: Speci men Type: BLOOD SPECIMENOrdering Facility: [facility] Address: [address] [place] [address] Performed By: #### 2 4323-8, 3084-1, 2532-0, 2777-1 ####[facility] LABCLIA [id number] [place] [id number] [place] Calcium [Mass/Vol] 9.0 mg/dL Normal 8.5-10.2 [facility] Comment on above: Order Comment: Speci men Type: BLOOD SPECIMENOrdering Facility: [facility] Address: [address] [place] [address] Performed By: #### 2 4323-8, 3084-1, 2532-0, 2777-1 ####[facility] LABCLIA [id number] [place] [address] [place] Chloride [Moles/Vol] 99 mmol/L Normal 98-107 [facility] Comment on above: Order Comment: Speci men Type: BLOOD SPECIMENOrdering Facility: [facility] Address: [address] [place] [address] Performed By: #### 2 4323-8, 3084-1, 2532-0, 2777-1 ####[facility] LABCLIA [id number] [place] [address] [place] CO2 [Moles/Vol] 26 mmol/L Normal 22-30 [facility] Comment on above: Order Comment: Speci men Type: BLOOD SPECIMENOrdering Facility: [facility] Address: [address] [place] [address] Performed By: #### 2 4323-8, 3084-1, 2532-0, 277-1 ####[facility] LABCLIA [id number] [place] [id number] [place] Creatinine [Mass/Vol] 0.66 mg/dL Normal 0.58-0.96 [facility] Comment on above: Order Comment: Speci men Type: BLOOD SPECIMENOrdering Facility: [facility] Address: [address] [place] [address] Performed By: #### 2 4323-8, 3084-1, 2532-0, 2777-1 ####[facility] LABCLIA [id number] [address] [place] Creatinine and Glomerular filtration rate.predicted panel (S/P/Bld) 97 mL/min/1.73m??? Normal >=60 [facility] Comment on above: Order Comment: Bia benitez Type: BLOOD SPECIMENOrdering Facility: [facility] Address: [address] [place] [address] Result Comment: Cornell mated Glomerular Filtration Rate (eGFR) is calculated using the 2020 CKD-EPI creatinine equation. This equation utilizes serum creatinine, sex, and age as parameters. The creatinine assay has traceable calibration to isotope dilution-mass spectrometry. Refer to KDIGO guidelines for clinical interpretation. In patients with unstable renal function, e.g. those with acute kidney injury, the eGFR may not accurately reflect actual GFR. Performed By: #### 2 4323-8, 3084-1, 2532-0, 2777-1 ####[facility] LABCLIA [id number] [place] [address] [place] Glucose [Mass/Vol] 145 mg/dL High 74-99 [facility] Comment on above: Order Comment: Bia benitez Type: BLOOD SPECIMENOrdering Facility: [facility] Address: [address] [place] [address] Result Comment: The [place] Diabetes [employer] (ADA) provides guidance for cutoff values for fasting glucose and random glucose. The ADA defines fasting as no caloric intake for at least 8 hours. Fasting plasma glucose results between 100 to 125 mg/dL indicate increased risk for diabetes (prediabetes).Fasting plasma glucose results greater than or equal to 126 mg/dL meet the criteria for diagnosis of diabetes. In the absence of unequivocal hyperglycemia, results should be confirmed by repeat testing. In a patient with classic symptoms of hyperglycemia or hyperglycemic crisis, random plasma glucose results greater than or equal to 200 mg/dL meet the criteria for diagnosis of diabetes.Reference: Standards of Medical Care in Diabetes 2016, [place] [employer]. Diabetes Care. 2016.39(Suppl 1). Performed By: #### 2 4323-8, 3084-1, 2532-0, 2777-1 ####[facility] LABCLIA [id number] [address] [address] [place] Potassium [Moles/Vol] 4.8 mmol/L Normal 3.7-5.1 [facility] Comment on above: Order Comment: Speci men Type: BLOOD SPECIMENOrdering Facility: [facility] Address: [address] [place] [address] Performed By: #### 2 4323-8, 3084-1, 2532-0, 2776-1 ####[facility] LABCLIA [id number] [place] [id number] [place] Protein [Mass/Vol] 5.2 g/dL Low 6.3-8.0 [facility] Comment on above: Order Comment: Speci men Type: BLOOD SPECIMENOrdering Facility: [facility] Address: [address] [place] [address] Performed By: #### 2 4323-8, 3084-1, 2-0, 2776-1 ####[facility] LABCLIA [id number] [place] [id number] [place] Sodium [Moles/Vol] 136 mmol/L Normal 136-144 [facility] Comment on above: Order Comment: Speci men Type: BLOOD SPECIMENOrdering Facility: [facility] Address: [address] [place] [address] Performed By: #### 2 4323-8, 3084-1, 2532-0, 2776-1 ####[facility] LABCLIA [id number] [place] [id number] [place] Urea nitrogen [Mass/Vol] 19 mg/dL Normal 7-21 [facility] Comment on above: Order Comment: Speci men Type: BLOOD SPECIMENOrdering Facility: [facility] Address: [address] [place] [address] Performed By: #### 2 4323-8, 3084-1, 2532-0, 7-1 ####[facility] LABCLIA [id number] [place] [address] [place] Albumin [Mass/Vol] 2.8 g/dL Low 3.9-4.9 [facility] Comment on above: Order Comment: Speci men Type: BLOOD SPECIMENOrdering Facility: [facility] Address: [address] [place] [address] Performed By: #### 2 4323-8, 3084-1, 2532-0, 2777-1 ####[facility] LABCLIA [id number] [place] [address] [place] ALP [Catalytic activity/Vol] 278 U/L High 34-123 [facility] Comment on above: Order Comment: Speci men Type: BLOOD SPECIMENOrdering Facility: [facility] Address: [address] [place] [address] Performed By: #### 2 4323-8, 3084-1, 2532-0, 2777-1 ####[facility] LABCLIA [id number] [place] [address] [place] ALT [Catalytic activity/Vol] 44 U/L High 7-38 [facility] Comment on above: Order Comment: Speci men Type: BLOOD SPECIMENOrdering Facility: [facility] Address: [address] [place] [address] Performed By: #### 2 4323-8, 3084-1, 2532-0, 2777-1 ####[facility] LABIA [id number] [place] [id number] [place] Anion gap [Moles/Vol] 12 mmol/L Normal 8-15 [facility] Comment on above: Order Comment: Speci men Type: BLOOD SPECIMENOrdering Facility: [facility] Address: [address] [place] [address] Performed By: #### 2 4323-8, 3084-1, 2532-0, 2777-1 ####[facility] LABCLIA [id number] [place] [id number] [place] AST [Catalytic activity/Vol] 56 U/L High 13-35 [facility] Comment on above: Order Comment: Speci men Type: BLOOD SPECIMENOrdering Facility: [facility] Address: [address] [place] [address] Performed By: #### 2 4323-8, 3084-1, 2532-0, 2777-1 ####[facility] LABCLIA [id number] [place] [address] [place] Bilirubin [Mass/Vol] 0.3 mg/dL Normal 0.2-1.3 [facility] Comment on above: Order Comment: Speci men Type: BLOOD SPECIMENOrdering Facility: [facility] Address: [address] [place] [address] Performed By: #### 2 4323-8, 3084-1, 2532-0, 7-1 ####[facility] LABIA [id number] [place] [address] [place] Calcium [Mass/Vol] 8.9 mg/dL Normal 8.5-10.2 [facility] Comment on above: Order Comment: Speci men Type: BLOOD SPECIMENOrdering Facility: [facility] Address: [address] [place] [address] Performed By: #### 2 4323-8, 3084-1, 2532-0, 2776-1 ####[facility] LABCLIA [id number] [place] [address] [place] Chloride [Moles/Vol] 98 mmol/L Normal 98-107 [facility] Comment on above: Order Comment: Speci men Type: BLOOD SPECIMENOrdering Facility: [facility] Address: [address] [place] [address] Performed By: #### 2 4323-8, 3084-1, 2532-0, 2777-1 ####[facility] LABCLIA [id number] [place] [address] [place] CO2 [Moles/Vol] 25 mmol/L Normal 22-30 [facility] Comment on above: Order Comment: Speci men Type: BLOOD SPECIMENOrdering Facility: [facility] Address: [address] [place] [address] Performed By: #### 2 4323-8, 3084-1, 2532-0, 2777-1 ####[facility] LABCLIA [id number] [place] [address] [place] Creatinine [Mass/Vol] 0.72 mg/dL Normal 0.58-0.96 [facility] Comment on above: Order Comment: Speci men Type: BLOOD SPECIMENOrdering Facility: [facility] Address: [address] [place] [address] Performed By: #### 2 4323-8, 3084-1, 2532-0, 2776-1 ####[facility] LABIA [id number] [place] [address] [place] Creatinine and Glomerular filtration rate.predicted panel (S/P/Bld) 92 mL/min/1.73m??? Normal >=60 [facility] Comment on above: Order Comment: Speci men Type: BLOOD SPECIMENOrdering Facility: [facility] Address: [address] [place] [address] Result Comment: Cornell mated Glomerular Filtration Rate (eGFR) is calculated using the 2020 CKD-EPI creatinine equation. This equation utilizes serum creatinine, sex, and age as parameters. The creatinine assay has traceable calibration to isotope dilution-mass spectrometry. Refer to KDIGO guidelines for clinical interpretation. In patients with unstable renal function, e.g. those with acute kidney injury, the eGFR may not accurately reflect actual GFR. Performed By: #### 2 4323-8, 3084-1, 2532-0, 2777-1 ####[facility] LABCLIA [id number] [address] [address] [place] Glucose [Mass/Vol] 154 mg/dL High 74-99 [facility] Comment on above: Order Comment: Speci men Type: BLOOD SPECIMENOrdering Facility: [facility] Address: [address] [place] [address] Result Comment: The [place] Diabetes [employer] (ADA) provides guidance for cutoff values for fasting glucose and random glucose. The ADA defines fasting as no caloric intake for at least 8 hours. Fasting plasma glucose results between 100 to 125 mg/dL indicate increased risk for diabetes (prediabetes).Fasting plasma glucose results greater than or equal to 126 mg/dL meet the criteria for diagnosis of diabetes. In the absence of unequivocal hyperglycemia, results should be confirmed by repeat testing. In a patient with classic symptoms of hyperglycemia or hyperglycemic crisis, random plasma glucose results greater than or equal to 200 mg/dL meet the criteria for diagnosis of diabetes.Reference: Standards of Medical Care in Diabetes 2016, [place] [employer]. Diabetes Care. 2016.39(Suppl 1). Performed By: #### 2 4323-8, 3084-1, 2532-0, 2776-1 ####[facility] LABCLIA [id number] [place] [address] [place] Potassium [Moles/Vol] 4.3 mmol/L Normal 3.7-5.1 [facility] Comment on above: Order Comment: Belli eli Type: BLOOD SPECIMENOrdering Facility: [facility] Address: [address] [place] [address] Performed By: #### 2 4323-8, 3084-1, 2531-0, 2776- ####[facility] LABCLIA [id number] [place] [address] [place] Protein [Mass/Vol] 5.8 g/dL Low 6.3-8.0 [facility] Comment on above: Order Comment: Belli men Type: BLOOD SPECIMENOrdering Facility: [facility] Address: [address] [place] [address] Performed By: #### 2 4323-8, 3084-1, 2532-0, 2776-1 ####[facility] LABCLIA [id number] [address] [address] [place] Sodium [Moles/Vol] 135 mmol/L Low 136-144 [facility] Comment on above: Order Comment: Speci men Type: BLOOD SPECIMENOrdering Facility: [facility] Address: [address] [place] [address] Performed By: #### 2 4323-8, 3084-1, 2532-0, 277-1 ####[facility] LABCLIA [id number] [place] [id number] [place] Urea nitrogen [Mass/Vol] 17 mg/dL Normal 7-21 [facility] Comment on above: Order Comment: Speci men Type: BLOOD SPECIMENOrdering Facility: [facility] Address: [address] [place] [address] Performed By: #### 2 4323-8, 3084-1, 2532-0, 2776-1 ####[facility] LABCLIA [id number] [place] [id number] [place] Albumin [Mass/Vol] 2.8 g/dL Low 3.9-4.9 [facility] Comment on above: Order Comment: Speci men Type: BLOOD SPECIMENOrdering Facility: [facility] Address: [address] [place] [address] Performed By: #### 1 9123-9, 3084-1, 277-1, 13511-5 ####[facility] LABCLIA [id number] [place] [id number] [place] ALP [Catalytic activity/Vol] 283 U/L High 34-123 [facility] Comment on above: Order Comment: Speci men Type: BLOOD SPECIMENOrdering Facility: [facility] Address: [address] [place] [address] Performed By: #### 1 9123-9, 3084-1, 2777-1, 86544-0 ####[facility] LABCLIA [id number] [place] [id number] [place] ALT [Catalytic activity/Vol] 44 U/L High 7-38 [facility] Comment on above: Order Comment: Speci men Type: BLOOD SPECIMENOrdering Facility: [facility] Address: [address] [place] [address] Performed By: #### 1 9123-9, 3084-1, 2777-1, 79067-9 ####[facility] LABCLIA [id number] [place] [address] [place] Anion gap [Moles/Vol] 11 mmol/L Normal 8-15 [facility] Comment on above: Order Comment: Speci men Type: BLOOD SPECIMENOrdering Facility: [facility] Address: [address] [place] [address] Performed By: #### 1 9123-9, 3084-1, 277-1, 24782-6 ####[facility] LABCLIA [id number] [place] [address] [place] AST [Catalytic activity/Vol] 50 U/L High 13-35 [facility] Comment on above: Order Comment: Speci men Type: BLOOD SPECIMENOrdering Facility: [facility] Address: [address] [place] [address] Performed By: #### 1 9123-9, 3084-1, 277-1, 48051-9 ####[facility] LABCLIA [id number] [place] [id number] [place] Bilirubin [Mass/Vol] 0.3 mg/dL Normal 0.2-1.3 [facility] Comment on above: Order Comment: Speci men Type: BLOOD SPECIMENOrdering Facility: [facility] Address: [address] [place] [address] Performed By: #### 1 9123-9, 3084-1, 2777-1, 15575-5 ####[facility] LABCLIA [id number] [address] [address] [place] Calcium [Mass/Vol] 9.3 mg/dL Normal 8.5-10.2 [facility] Comment on above: Order Comment: Speci men Type: BLOOD SPECIMENOrdering Facility: [facility] Address: [address] [place] [address] Performed By: #### 1 9123-9, 3084-1, 277-1, 50934-1 ####[facility] LABCLIA [id number] [place] [id number] [place] Chloride [Moles/Vol] 96 mmol/L Low 98-107 [facility] Comment on above: Order Comment: Speci men Type: BLOOD SPECIMENOrdering Facility: [facility] Address: [address] [place] [address] Performed By: #### 1 9123-9, 3084-1, 277-, 20026-0 ####[facility] LABCLIA [id number] [place] [address] [place] CO2 [Moles/Vol] 24 mmol/L Normal 22-30 [facility] Comment on above: Order Comment: Speci men Type: BLOOD SPECIMENOrdering Facility: [facility] Address: [address] [place] [address] Performed By: #### 1 9123-9, 3084-1, 277-, 19722-9 ####[facility] LABCLIA [id number] [place] [id number] [place] Creatinine [Mass/Vol] 0.58 mg/dL Normal 0.58-0.96 [facility] Comment on above: Order Comment: Speci men Type: BLOOD SPECIMENOrdering Facility: [facility] Address: [address] [place] [address] Performed By: #### 1 9123-9, 3084-1, 2777-1, 57550-2 ####[facility] LABCLIA [id number] [address] [place] Creatinine and Glomerular filtration rate.predicted panel (S/P/Bld) 100 mL/min/1.73m??? Normal >=60 [facility] Comment on above: Order Comment: Bia benitez Type: BLOOD SPECIMENOrdering Facility: [facility] Address: [address] [place] [address] Result Comment: Cornell mated Glomerular Filtration Rate (eGFR) is calculated using the 2020 CKD-EPI creatinine equation. This equation utilizes serum creatinine, sex, and age as parameters. The creatinine assay has traceable calibration to isotope dilution-mass spectrometry. Refer to KDIGO guidelines for clinical interpretation. In patients with unstable renal function, e.g. those with acute kidney injury, the eGFR may not accurately reflect actual GFR. Performed By: #### 1 9123-9, 3084-1, 2777-1, 66190-5 ####[facility] LABCLIA [id number] [place] [address] [place] Glucose [Mass/Vol] 398 mg/dL High 74-99 [facility] Comment on above: Order Comment: Bia benitez Type: BLOOD SPECIMENOrdering Facility: [facility] Address: [address] [place] [address] Result Comment: The [place] Diabetes [employer] (ADA) provides guidance for cutoff values for fasting glucose and random glucose. The ADA defines fasting as no caloric intake for at least 8 hours. Fasting plasma glucose results between 100 to 125 mg/dL indicate increased risk for diabetes (prediabetes).Fasting plasma glucose results greater than or equal to 126 mg/dL meet the criteria for diagnosis of diabetes. In the absence of unequivocal hyperglycemia, results should be confirmed by repeat testing. In a patient with classic symptoms of hyperglycemia or hyperglycemic crisis, random plasma glucose results greater than or equal to 200 mg/dL meet the criteria for diagnosis of diabetes.Reference: Standards of Medical Care in Diabetes 2016, [place] [employer]. Diabetes Care. 2016.39(Suppl 1). Performed By: #### 1 9123-9, 3084-1, 2777-1, 58949-0 ####[facility] LABCLIA [id number] [address] [place] [address] [place] Potassium [Moles/Vol] 4.5 mmol/L Normal 3.7-5.1 [facility] Comment on above: Order Comment: Speci men Type: BLOOD SPECIMENOrdering Facility: [facility] Address: [address] [place] [address] Performed By: #### 1 9123-9, 3084-1, 277-, 75322-3 ####[facility] LABCLIA [id number] [place] [id number] [place] Protein [Mass/Vol] 5.9 g/dL Low 6.3-8.0 [facility] Comment on above: Order Comment: Speci men Type: BLOOD SPECIMENOrdering Facility: [facility] Address: [address] [place] [address] Performed By: #### 1 9123-9, 3084-, 27712-18, 88557-7 ####[facility]CLIA [id number] [place] [address] [place] Sodium [Moles/Vol] 131 mmol/L Low 136-144 [facility] Comment on above: Order Comment: Speci men Type: BLOOD SPECIMENOrdering Facility: [facility] Address: [address] [place] [address] Performed By: #### 1 9123-9, 3084-1, 27712-18, 51488-6 ####[facility] LABCLIA [id number] [place] [id number] [place] Urea nitrogen [Mass/Vol] 15 mg/dL Normal 7-21 [facility] Comment on above: Order Comment: Speci men Type: BLOOD SPECIMENOrdering Facility: [facility] Address: [address] [place] [address] Performed By: #### 1 9123-9, 3084-1, 2777-, 81362-6 ####[facility] LABCLIA [id number] [address] [address] [place] LDH SerPl-cCncon 11-18-2024 LDH [Catalytic activity/Vol] 3009 U/L High 135-214 [facility] Comment on above: Order Comment: Speci men Type: BLOOD SPECIMENOrdering Facility: [facility] Address: [address] [place] [address] Performed By: #### 2 4323-8, 3084-1, 2532-0, 2777-1 ####[facility] [id number] [place] [address] [place] LDH [Catalytic activity/Vol] 2652 U/L High 135-214 [facility] Comment on above: Order Comment: Speci men Type: BLOOD SPECIMENOrdering Facility: [facility] Address: [address] [place] [address] Performed By: #### 2 4323-8, 3084-1, 2532-0, 2776-1 ####[facility] LABCLIA [id number] [place] [address] [place] LDH [Catalytic activity/Vol] 2346 U/L High 135-214 [facility] Comment on above: Order Comment: Speci men Type: BLOOD SPECIMENOrdering Facility: [facility] Address: [address] [place] [address] Performed By: #### 2 532-0 ####[facility] LABCLIA [id number] [place] [address] [place] Magnesium SerPl-mCncon 11-18 Magnesium [Mass/Vol] 1.9 mg/dL Normal 1.7-2.3 [facility] Comment on above: Order Comment: Speci men Type: BLOOD SPECIMENOrdering Facility: [facility] Address: [address] [place] [address] Performed By: #### 1 9123-9, 3084-1, 2777-1, 94212-7 ####[facility] LABCLIA [id number] [place] [id number] [place] NURSING PROGon 11-18-2024 NURSING PROG Normal [facility] Phosphate SerPl-ncon 11-18 Phosphate [Mass/Vol] 2.3 mg/dL Low 2.7-4.8 [facility] Comment on above: Order Comment: Speci men Type: BLOOD SPECIMENOrdering Facility: [facility] Address: [address] [place] [address] Performed By: #### 2 4323-8, 3084-1, 2532-0, 2777-1 ####[facility] LAB[facility] [id number] [address] [place] Phosphate [Mass/Vol] 2.2 mg/dL Low 2.7-4.8 [facility] Comment on above: Order Comment: Speci men Type: BLOOD SPECIMENOrdering Facility: [facility] Address: [address] [place] [address] Performed By: #### 2 4323-8, 3084-1, 2532-0, 2777-1 ####[facility] [id number] [address] [place] Phosphate [Mass/Vol] 1.7 mg/dL Low 2.7-4.8 [facility] Comment on above: Order Comment: Speci men Type: BLOOD SPECIMENOrdering Facility: [facility] Address: [address] [place] [address] Performed By: #### 1 9123-9, 3084-1, 2777-1, 95120-0 ####[facility] LAB[facility] [id number] [place] [id number] [place] Urate SerPl-mCncon Urate [Mass/Vol] 2.1 mg/dL Low 2.5-6.6 [facility] Comment on above: Order Comment: Speci men Type: BLOOD SPECIMENOrdering Facility: [facility] Address: [address] [place], [place] [address] Performed By: #### 2 4323-8, 3084-1, 2532-0, 2777-1 ####[facility] LABCLIA [id number] [address] [address] [place] Urate [Mass/Vol] 2.4 mg/dL Low 2.5-6.6 [facility] Comment on above: Order Comment: Speci men Type: BLOOD SPECIMENOrdering Facility: [facility] Address: [address] [place] [address] Performed By: #### 2 4323-8, 3084-1, 2532-0, 2777-1 ####[facility] LABCLIA [id number] [place] [address] [place] Urate [Mass/Vol] 2.4 mg/dL Low 2.5-6.6 [facility] Comment on above: Order Comment: Speci men Type: BLOOD SPECIMENOrdering Facility: [facility] Address: [address] [place] [address] Performed By: #### 1 9123-9, 3084-1, 2777-1, 36438-7 ####[facility] LABCLIA [id number] [address] [address] [place] CBC panel Auto (Bld)on 11-17 Erythrocyte distribution width (RBC) [Ratio] 16.1 % High 11.5-15.0 [facility] Comment on above: Order Comment: Speci men Type: BLOOD SPECIMENOrdering Facility: [facility] Address: [address] [place] [address] Performed By: #### 5 8410-2 ####[facility] LABCLIA [id number] [address] [address] [place] Hematocrit (Bld) [Volume fraction] 29.7 % Low 36.0-46.0 [facility] Comment on above: Order Comment: Speci men Type: BLOOD SPECIMENOrdering Facility: [facility] Address: [address] [place] [address] Performed By: #### 5 8410-2 ####[facility] LABIA [id number] [place] [address] [place] Hemoglobin (Bld) [Mass/Vol] 9.7 g/dL Low 11.5-15.5 [facility] Comment on above: Order Comment: Speci men Type: BLOOD SPECIMENOrdering Facility: [facility] Address: [address] [place] [address] Performed By: #### 5 8410-2 ####[facility] LABIA [id number] [place] [address] [place] MCH (RBC) [Entitic mass] 27.3 pg Normal 26.0-34.0 [facility] Comment on above: Order Comment: Speci men Type: BLOOD SPECIMENOrdering Facility: [facility] Address: [address] [place] [address] Performed By: #### 5 8410-2 ####[facility] LABIA [id number] [place] [address] [place] MCHC (RBC) [Mass/Vol] 32.7 g/dL Normal 30.5-36.0 [facility] Comment on above: Order Comment: Speci men Type: BLOOD SPECIMENOrdering Facility: [facility] Address: [address] [place] [address] Performed By: #### 5 8410-2 ####[facility] LABIA [id number] [place] [address] [place] MCV (RBC) [Entitic vol] 83.7 fL Normal 80.0-100.0 [facility] Comment on above: Order Comment: Speci men Type: BLOOD SPECIMENOrdering Facility: [facility] Address: [address] [place] [address] Performed By: #### 5 8410-2 ####[facility] LABCLIA [id number] [address], [place] [address] [place] Nucleated RBC (Bld) [#/Vol] 10*3/uL Normal <0.01 [facility] Comment on above: Order Comment: Speci men Type: BLOOD SPECIMENOrdering Facility: [facility] Address: [address] [place] [address] Performed By: #### 5 8410-2 ####[facility] LABIA [id number] [address], [place] [address] [place] Platelet mean volume (Bld) [Entitic vol] 9.7 fL Normal 9.0-12.7 [facility] Comment on above: Order Comment: Speci men Type: BLOOD SPECIMENOrdering Facility: [facility] Address: [address] [place] [address] Performed By: #### 5 8410-2 ####[facility] LABIA [id number] [place] [address] [place] Platelets (Bld) [#/Vol] 227 10*3/uL Normal 150-400 [facility] Comment on above: Order Comment: Speci men Type: BLOOD SPECIMENOrdering Facility: [facility] Address: [address] [place] [address] Performed By: #### 5 8410-2 ####[facility] LABIA [id number] [place] [address] [place] RBC (Bld) [#/Vol] 3.55 10*6/uL Low 3.90-5.20 [facility] Comment on above: Order Comment: Speci men Type: BLOOD SPECIMENOrdering Facility: [facility] Address: [address] [place] [address] Performed By: #### 5 8410-2 ####[facility] LABIA [id number] [place] [address] [place] WBC (Bld) [#/Vol] 9.92 10*3/uL Normal 3.70-11.00 [facility] Comment on above: Order Comment: Speci men Type: BLOOD SPECIMENOrdering Facility: [facility] Address: [address] [place] [address] Performed By: #### 5 8410-2 ####[facility] LABCLIA [id number] [place] [id number] [place] CONSULT PROGon 11-17-2024 CONSULT PROG Normal [facility] Comprehensive metabolic 2000 panelon 11-17-2024 Albumin [Mass/Vol] 2.9 g/dL Low 3.9-4.9 [facility] Comment on above: Order Comment: Speci men Type: BLOOD SPECIMENOrdering Facility: [facility] Address: [address] [place] [address] Performed By: #### 2 777-1, 49337-3, 2531-0, 3083-1 ####[facility] LABCLIA [id number] [place] [id number] [place] ALP [Catalytic activity/Vol] 277 U/L High 34-123 [facility] Comment on above: Order Comment: Speci men Type: BLOOD SPECIMENOrdering Facility: [facility] Address: [address] [place] [address] Performed By: #### 2 777-1, 64935-7, 2531-0, 3083-1 ####[facility] LABCLIA [id number] [place] [address] [place] ALT [Catalytic activity/Vol] 43 U/L High 7-38 [facility] Comment on above: Order Comment: Speci men Type: BLOOD SPECIMENOrdering Facility: [facility] Address: [address] [place] [address] Performed By: #### 2 777-1, 36005-9, 2532-0, 3084-1 ####[facility] LABCLIA [id number] [place] [address] [place] Anion gap [Moles/Vol] 12 mmol/L Normal 8-15 [facility] Comment on above: Order Comment: Speci men Type: BLOOD SPECIMENOrdering Facility: [facility] Address: [address] [place] [address] Performed By: #### 2 777-1, 83091-7, 253-0, 3083-1 ####[facility] LABCLIA [id number] [place] [id number] [place] AST [Catalytic activity/Vol] 54 U/L High 13-35 [facility] Comment on above: Order Comment: Speci men Type: BLOOD SPECIMENOrdering Facility: [facility] Address: [address] [place] [address] Performed By: #### 2 777-1, 04549-4, 2531-0, 3083-1 ####[facility] LABCLIA [id number] [place] [address] [place] Bilirubin [Mass/Vol] 0.3 mg/dL Normal 0.2-1.3 [facility] Comment on above: Order Comment: Speci men Type: BLOOD SPECIMENOrdering Facility: [facility] Address: [address] [place] [address] Performed By: #### 2 777-1, 17552-5, 2531-0, 3083-1 ####[facility] LABCLIA [id number] [place] [id number] [place] Calcium [Mass/Vol] 9.2 mg/dL Normal 8.5-10.2 [facility] Comment on above: Order Comment: Speci men Type: BLOOD SPECIMENOrdering Facility: [facility] Address: [address] [place] [address] Performed By: #### 2 777-1, 34770-0, 2532-0, 3083-1 ####[facility] LABCLIA [id number] [address] [address] [place] Chloride [Moles/Vol] 98 mmol/L Normal 98-107 [facility] Comment on above: Order Comment: Speci men Type: BLOOD SPECIMENOrdering Facility: [facility] Address: [address] [place] [address] Performed By: #### 2 777-1, 62696-9, 2532-0, 3084-1 ####[facility] LABCLIA [id number] [place] [address] [place] CO2 [Moles/Vol] 24 mmol/L Normal 22-30 [facility] Comment on above: Order Comment: Speci men Type: BLOOD SPECIMENOrdering Facility: [facility] Address: [address] [place] [address] Performed By: #### 2 777-1, 25938-0, 2532-0, 3084-1 ####[facility] LABCLIA [id number] [place] [address] [place] Creatinine [Mass/Vol] 0.65 mg/dL Normal 0.58-0.96 [facility] Comment on above: Order Comment: Speci men Type: BLOOD SPECIMENOrdering Facility: [facility] Address: [address] [place] [address] Performed By: #### 2 777-1, 17217-6, 2532-0, 3084-1 ####[facility] LABIA [id number] [place] [address] [place] Creatinine and Glomerular filtration rate.predicted panel (S/P/Bld) 97 mL/min/1.73m??? Normal >=60 [facility] Comment on above: Order Comment: Speci men Type: BLOOD SPECIMENOrdering Facility: [facility] Address: [address] [place] [address] Result Comment: Cornell mated Glomerular Filtration Rate (eGFR) is calculated using the 2020 CKD-EPI creatinine equation. This equation utilizes serum creatinine, sex, and age as parameters. The creatinine assay has traceable calibration to isotope dilution-mass spectrometry. Refer to KDIGO guidelines for clinical interpretation. In patients with unstable renal function, e.g. those with acute kidney injury, the eGFR may not accurately reflect actual GFR. Performed By: #### 2 777-1, 10677-9, 2531-0, 3083- ####[facility] LABCLIA [id number] [address] [address] [place] Glucose [Mass/Vol] 282 mg/dL High 74-99 [facility] Comment on above: Order Comment: Bia benitez Type: BLOOD SPECIMENOrdering Facility: [facility] Address: [address] [place] [address] Result Comment: The [place] [employer] (ADA) provides guidance for cutoff values for fasting glucose and random glucose. The ADA defines fasting as no caloric intake for at least 8 hours. Fasting plasma glucose results between 100 to 125 mg/dL indicate increased risk for diabetes (prediabetes).Fasting plasma glucose results greater than or equal to 126 mg/dL meet the criteria for diagnosis of diabetes. In the absence of unequivocal hyperglycemia, results should be confirmed by repeat testing. In a patient with classic symptoms of hyperglycemia or hyperglycemic crisis, random plasma glucose results greater than or equal to 200 mg/dL meet the criteria for diagnosis of diabetes.Reference: Standards of Medical Care in Diabetes 2016, [place] [employer]. Diabetes Care. 2016.39(Suppl 1). Performed By: #### 2 777-1, 07093-9, 2531-0, 3083-06 ####[facility] LABCLIA [id number] [address] [address] [place] Potassium [Moles/Vol] 4.6 mmol/L Normal 3.7-5.1 [facility] Comment on above: Order Comment: Bia benitez Type: BLOOD SPECIMENOrdering Facility: [facility] Address: [address] [place] [address] Performed By: #### 2 777-1, 91890-1, 2531-0, 3083- ####[facility] LABCLIA [id number] [address] [address] [place] Protein [Mass/Vol] 5.6 g/dL Low 6.3-8.0 [facility] Comment on above: Order Comment: Speci men Type: BLOOD SPECIMENOrdering Facility: [facility] Address: [address] [place] [address] Performed By: #### 2 777-1, 53846-1, 2532-0, 3083-1 ####[facility] LABCLIA [id number] [address] [address] [place] Sodium [Moles/Vol] 134 mmol/L Low 136-144 [facility] Comment on above: Order Comment: Speci men Type: BLOOD SPECIMENOrdering Facility: [facility] Address: [address] [place] [address] Performed By: #### 2 777-1, 20907-2, 2531-0, 3083-1 ####[facility] LABCLIA [id number] [address] [address] [place] Urea nitrogen [Mass/Vol] 17 mg/dL Normal 7-21 [facility] Comment on above: Order Comment: Speci men Type: BLOOD SPECIMENOrdering Facility: [facility] Address: [address] [place], [place] [address] Performed By: #### 2 777-1, 93304-8, 2531-0, 3083-1 ####[facility] LABCLIA [id number] [address] [address] [place] Albumin [Mass/Vol] 2.9 g/dL Low 3.9-4.9 [facility] Comment on above: Order Comment: Speci men Type: BLOOD SPECIMENOrdering Facility: [facility] Address: [address] [place] [address] Performed By: #### 2 4323-8, 2777-1, 3084-1, 2532-0 ####[facility] LABCLIA [id number] [place] [id number] [place] ALP [Catalytic activity/Vol] 288 U/L High 34-123 [facility] Comment on above: Order Comment: Speci men Type: BLOOD SPECIMENOrdering Facility: [facility] Address: [address] [place] [address] Performed By: #### 2 4323-8, 2777-1, 3084-1, 2532-0 ####[facility] LABCLIA [id number] [place] [id number] [place] ALT [Catalytic activity/Vol] 40 U/L High 7-38 [facility] Comment on above: Order Comment: Speci men Type: BLOOD SPECIMENOrdering Facility: [facility] Address: [address] [place] [address] Performed By: #### 2 4323-8, 2777-1, 3084-1, 2532-0 ####[facility] LABCLIA [id number] [place] [id number] [place] Anion gap [Moles/Vol] 11 mmol/L Normal 8-15 [facility] Comment on above: Order Comment: Speci men Type: BLOOD SPECIMENOrdering Facility: [facility] Address: [address] [place] [address] Performed By: #### 2 4323-8, 2777-1, 3084-1, 2532-0 ####[facility] LABCLIA [id number] [place] [id number] [place] AST [Catalytic activity/Vol] 55 U/L High 13-35 [facility] Comment on above: Order Comment: Speci men Type: BLOOD SPECIMENOrdering Facility: [facility] Address: [address] [place] [address] Performed By: #### 2 4323-8, 2777-1, 3084-1, 2532-0 ####[facility] LABCLIA [id number] [address] [address] [place] Bilirubin [Mass/Vol] 0.5 mg/dL Normal 0.2-1.3 [facility] Comment on above: Order Comment: Speci men Type: BLOOD SPECIMENOrdering Facility: [facility] Address: [address] [place] [address] Performed By: #### 2 4323-8, 2777-1, 3084-1, 2532-0 ####[facility] LABCLIA [id number] [address] [address] [place] Calcium [Mass/Vol] 8.7 mg/dL Normal 8.5-10.2 [facility] Comment on above: Order Comment: Speci men Type: BLOOD SPECIMENOrdering Facility: [facility] Address: [address] [place] [address] Performed By: #### 2 4323-8, 2777-1, 3083-, 2532-0 ####[facility] LABCLIA [id number] [place] [id number] [place] Chloride [Moles/Vol] 96 mmol/L Low 98-107 [facility] Comment on above: Order Comment: Speci men Type: BLOOD SPECIMENOrdering Facility: [facility] Address: [address] [place] [address] Performed By: #### 2 4323-8, 2777-1, 308-, 2532-0 ####[facility] LABCLIA [id number] [address] [address] [place] CO2 [Moles/Vol] 26 mmol/L Normal 22-30 [facility] Comment on above: Order Comment: Speci men Type: BLOOD SPECIMENOrdering Facility: [facility] Address: [address] [place], [place] [address] Performed By: #### 2 4323-8, 2777-1, 3084-1, 2532-0 ####[facility] LABCLIA [id number] [place] [id number] [place] Creatinine [Mass/Vol] 0.62 mg/dL Normal 0.58-0.96 [facility] Comment on above: Order Comment: Speci men Type: BLOOD SPECIMENOrdering Facility: [facility] Address: [address] [place] [address] Performed By: #### 2 4323-8, 2777-1, 3084-1, 2532-0 ####[facility] [id number] [place] [address] [place] Creatinine and Glomerular filtration rate.predicted panel (S/P/Bld) 98 mL/min/1.73m??? Normal >=60 [facility] Comment on above: Order Comment: Bia benitez Type: BLOOD SPECIMENOrdering Facility: [facility] Address: [address] [place] [address] Result Comment: Cornell mated Glomerular Filtration Rate (eGFR) is calculated using the 2020 CKD-EPI creatinine equation. This equation utilizes serum creatinine, sex, and age as parameters. The creatinine assay has traceable calibration to isotope dilution-mass spectrometry. Refer to KDIGO guidelines for clinical interpretation. In patients with unstable renal function, e.g. those with acute kidney injury, the eGFR may not accurately reflect actual GFR. Performed By: #### 2 4323-8, 2777-1, 3084-1, 2532-0 ####[facility] LABIA [id number] [place] [id number] [place] Glucose [Mass/Vol] 387 mg/dL High 74-99 [facility] Comment on above: Order Comment: Speci men Type: BLOOD SPECIMENOrdering Facility: [facility] Address: [address] [place] [address] Result Comment: The [place] [employer] (ADA) provides guidance for cutoff values for fasting glucose and random glucose. The ADA defines fasting as no caloric intake for at least 8 hours. Fasting plasma glucose results between 100 to 125 mg/dL indicate increased risk for diabetes (prediabetes).Fasting plasma glucose results greater than or equal to 126 mg/dL meet the criteria for diagnosis of diabetes. In the absence of unequivocal hyperglycemia, results should be confirmed by repeat testing. In a patient with classic symptoms of hyperglycemia or hyperglycemic crisis, random plasma glucose results greater than or equal to 200 mg/dL meet the criteria for diagnosis of diabetes.Reference: Standards of Medical Care in Diabetes 2016, [place] [employer]. Diabetes Care. 2016.39(Suppl 1). Performed By: #### 2 4323-8, 2777-1, 3084-, 2532-0 ####[facility] [id number] [address] [address] [place] Potassium [Moles/Vol] 4.6 mmol/L Normal 3.7-5.1 [facility] Comment on above: Order Comment: Speci men Type: BLOOD SPECIMENOrdering Facility: [facility] Address: [address] [place] [address] Performed By: #### 2 4323-8, 277-, 3083-, 253-0 ####[facility] [id number] [address] [address] [place] Protein [Mass/Vol] 5.8 g/dL Low 6.3-8.0 [facility] Comment on above: Order Comment: Speci men Type: BLOOD SPECIMENOrdering Facility: [facility] Address: [address] [place] [address] Performed By: #### 2 4323-8, 277-1, 3083-, 2532-0 ####[facility] [id number] [address] [address] [place] Sodium [Moles/Vol] 133 mmol/L Low 136-144 [facility] Comment on above: Order Comment: Speci men Type: BLOOD SPECIMENOrdering Facility: [facility] Address: [address] [place] [address] Performed By: #### 2 4323-8, 277-1, 3084-, 2532-0 ####[facility] [id number] [address] [address] [place] Urea nitrogen [Mass/Vol] 18 mg/dL Normal 7-21 [facility] Comment on above: Order Comment: Speci men Type: BLOOD SPECIMENOrdering Facility: [facility] Address: [address] [place] [address] Performed By: #### 2 4323-8, 2777-1, 3084-1, 2532-0 ####[facility] [id number] [address] [address] [place] Albumin [Mass/Vol] 2.8 g/dL Low 3.9-4.9 [facility] Comment on above: Order Comment: Speci men Type: BLOOD SPECIMENOrdering Facility: [facility] Address: [address] [place] [address] Performed By: #### 3 084-1, 42281-8, 20214-0, 2776- ####[facility] [id number] [address] [address] [place] ALP [Catalytic activity/Vol] 243 U/L High 34-123 [facility] Comment on above: Order Comment: Speci men Type: BLOOD SPECIMENOrdering Facility: [facility] Address: [address] [place] [address] Performed By: #### 3 084-1, 89619-9, 39167-3, 2776- ####[facility] LABCLIA [id number] [address] [address] [place] ALT [Catalytic activity/Vol] 36 U/L Normal 7-38 [facility] Comment on above: Order Comment: Speci men Type: BLOOD SPECIMENOrdering Facility: [facility] Address: [address] [place], [place] [id number] Performed By: #### 3 084-1, 26407-8, 27472-7, 2776- ####[facility] LAB[facility]IA [id number] [place] [id number] [place] Anion gap [Moles/Vol] 8 mmol/L Normal 8-15 [facility] Comment on above: Order Comment: Speci men Type: BLOOD SPECIMENOrdering Facility: [facility] Address: [address] [place] [address] Performed By: #### 3 084-1, 75116-1, , 2776-06 ####[facility] LAB[facility] [id number] [place] [address] [place] AST [Catalytic activity/Vol] 45 U/L High 13-35 [facility] Comment on above: Order Comment: Speci men Type: BLOOD SPECIMENOrdering Facility: [facility] Address: [address] [place] [address] Performed By: #### 3 084-1, 71731-8, , 2776-06 ####[facility] LABCLIA [id number] [place] [address] [place] Bilirubin [Mass/Vol] 0.4 mg/dL Normal 0.2-1.3 [facility] Comment on above: Order Comment: Speci men Type: BLOOD SPECIMENOrdering Facility: [facility] Address: [address] [place] [address] Performed By: #### 3 084-1, 90474-1, , 2776-06 ####[facility] [id number] [place] [id number] [place] Calcium [Mass/Vol] 8.9 mg/dL Normal 8.5-10.2 [facility] Comment on above: Order Comment: Speci men Type: BLOOD SPECIMENOrdering Facility: [facility] Address: [address] [place] [address] Performed By: #### 3 084-1, 88727-2, , 2776- ####[facility] LABCLIA [id number] [address] [address] [place] Chloride [Moles/Vol] 98 mmol/L Normal 98-107 [facility] Comment on above: Order Comment: Speci men Type: BLOOD SPECIMENOrdering Facility: [facility] Address: [address] [place] [address] Performed By: #### 3 084-1, 50075-9, 58951-3, 2776-1 ####[facility] LABCLIA [id number] [place] [address] [place] CO2 [Moles/Vol] 28 mmol/L Normal 22-30 [facility] Comment on above: Order Comment: Speci men Type: BLOOD SPECIMENOrdering Facility: [facility] Address: [address] [place] [address] Performed By: #### 3 084-1, 32438-0, 28363-4, 2776-06 ####[facility] LABCLIA [id number] [place] [address] [place] Creatinine [Mass/Vol] 0.60 mg/dL Normal 0.58-0.96 [facility] Comment on above: Order Comment: Speci men Type: BLOOD SPECIMENOrdering Facility: [facility] Address: [address] [place] [address] Performed By: #### 3 084-1, 72636-5, 83850-4, 2776-06 ####[facility] LABCLIA [id number] [place] [address] [place] Creatinine and Glomerular filtration rate.predicted panel (S/P/Bld) 99 mL/min/1.73m??? Normal >=60 [facility] Comment on above: Order Comment: Speci men Type: BLOOD SPECIMENOrdering Facility: [facility] Address: [address] [place] [address] Result Comment: Cornell mated Glomerular Filtration Rate (eGFR) is calculated using the 2020 CKD-EPI creatinine equation. This equation utilizes serum creatinine, sex, and age as parameters. The creatinine assay has traceable calibration to isotope dilution-mass spectrometry. Refer to KDIGO guidelines for clinical interpretation. In patients with unstable renal function, e.g. those with acute kidney injury, the eGFR may not accurately reflect actual GFR. Performed By: #### 3 084-1, 26986-6, , 2776-06 ####[facility] LABCLIA [id number] [address] [address] [place] Glucose [Mass/Vol] 284 mg/dL High 74-99 [facility] Comment on above: Order Comment: Bia benitez Type: BLOOD SPECIMENOrdering Facility: [facility] Address: [address] [place] [address] Result Comment: The [place] Diabetes [employer] (ADA) provides guidance for cutoff values for fasting glucose and random glucose. The ADA defines fasting as no caloric intake for at least 8 hours. Fasting plasma glucose results between 100 to 125 mg/dL indicate increased risk for diabetes (prediabetes).Fasting plasma glucose results greater than or equal to 126 mg/dL meet the criteria for diagnosis of diabetes. In the absence of unequivocal hyperglycemia, results should be confirmed by repeat testing. In a patient with classic symptoms of hyperglycemia or hyperglycemic crisis, random plasma glucose results greater than or equal to 200 mg/dL meet the criteria for diagnosis of diabetes.Reference: Standards of Medical Care in Diabetes 2016, [place] [employer]. Diabetes Care. 2016.39(Suppl 1). Performed By: #### 3 084-1, 30333-9, , 2776-06 ####[facility]IA [id number] [address] [address] [place] Potassium [Moles/Vol] 4.8 mmol/L Normal 3.7-5.1 [facility] Comment on above: Order Comment: Bia benitez Type: BLOOD SPECIMENOrdering Facility: [facility] Address: [address] [place] [address] Performed By: #### 3 084-1, 74662-0, , 2776-06 ####[facility] LABIA [id number] [address] [address] [place] Protein [Mass/Vol] 6.0 g/dL Low 6.3-8.0 [facility] Comment on above: Order Comment: Speci men Type: BLOOD SPECIMENOrdering Facility: [facility] Address: [address] [place] [address] Performed By: #### 3 084-1, 84541-1, 32926-0, 2776- ####[facility] LABIA [id number] [address] [address] [place] Sodium [Moles/Vol] 134 mmol/L Low 136-144 [facility] Comment on above: Order Comment: Speci men Type: BLOOD SPECIMENOrdering Facility: [facility] Address: [address] [place] [address] Performed By: #### 3 084-1, 27296-8, , 2776- ####[facility] [id number] [address] [address] [place] Urea nitrogen [Mass/Vol] 17 mg/dL Normal 7-21 [facility] Comment on above: Order Comment: Speci men Type: BLOOD SPECIMENOrdering Facility: [facility] Address: [address] [place] [address] Performed By: #### 3 084-1, 05495-5, 43049-5, 2776-06 ####[facility] LABIA [id number] [address] [address] [place] LDH SerPl-cCncon 11-17-2024 LDH [Catalytic activity/Vol] 2142 U/L High 135-214 [facility] Comment on above: Order Comment: Speci men Type: BLOOD SPECIMENOrdering Facility: [facility] Address: [address] [place] [address] Performed By: #### 2 777-1, 35311-8, 2532-0, 3084-1 ####[facility] LABIA [id number] [address] [address] [place] LDH [Catalytic activity/Vol] 2244 U/L High 135-214 [facility] Comment on above: Order Comment: Speci men Type: BLOOD SPECIMENOrdering Facility: [facility] Address: [address] [place], [place] [address] Performed By: #### 2 4323-8, 2777-1, 3084-1, 2532-0 ####[facility] LABIA [id number] [address] [address] [place] LDH [Catalytic activity/Vol] 2703 U/L High 135-214 [facility] Comment on above: Order Comment: Speci men Type: BLOOD SPECIMENOrdering Facility: [facility] Address: [address] [place] [address] Performed By: #### 2 532-0 ####[facility] [id number] [address] [address] [place] Magnesium SerPl-mCncon 11-17 Magnesium [Mass/Vol] 2.0 mg/dL Normal 1.7-2.3 [facility] Comment on above: Order Comment: Speci men Type: BLOOD SPECIMENOrdering Facility: [facility] Address: [address] [place], [place] [address] Performed By: #### 3 084-1, 00663-7, 99181-3, 2777-1 ####[facility] [id number] [address] [address] [place] Phosphate SerPl-mCncon 11-17 Phosphate [Mass/Vol] 2.4 mg/dL Low 2.7-4.8 [facility] Comment on above: Order Comment: Speci men Type: BLOOD SPECIMENOrdering Facility: [facility] Address: [address] [place] [address] Performed By: #### 2 777-1, 74129-7, 2532-0, 3084-1 ####[facility] LABCLIA [id number] [place] [address] [place] Phosphate [Mass/Vol] 3.0 mg/dL Normal 2.7-4.8 [facility] Comment on above: Order Comment: Speci men Type: BLOOD SPECIMENOrdering Facility: [facility] Address: [address] [place] [address] Performed By: #### 2 4323-8, 2777-1, 3084-1, 2532-0 ####[facility] LABCLIA [id number] [place] [address] [place] Phosphate [Mass/Vol] 2.7 mg/dL Normal 2.7-4.8 [facility] Comment on above: Order Comment: Speci men Type: BLOOD SPECIMENOrdering Facility: [facility] Address: [address] [place] [address] Performed By: #### 3 084-1, 46079-3, 75086-1, 277-1 ####[facility] LABIA [id number] [place] [address] [place] Urate SerPl-mCncon 5 Urate [Mass/Vol] 2.2 mg/dL Low 2.5-6.6 [facility] Comment on above: Order Comment: Speci men Type: BLOOD SPECIMENOrdering Facility: [facility] Address: [address] [place] [address] Performed By: #### 2 777-1, 38217-3, 2532-0, 308-1 ####[facility] LABCLIA [id number] [place] [address] [place] Urate [Mass/Vol] 2.8 mg/dL Normal 2.5-6.6 [facility] Comment on above: Order Comment: Speci men Type: BLOOD SPECIMENOrdering Facility: [facility] Address: [address] [place] [id number] Performed By: #### 2 4323-8, 2777-1, 3084-1, 2532-0 ####[facility]CLIA [id number] [address] [address] [place] Urate [Mass/Vol] 2.6 mg/dL Normal 2.5-6.6 [facility] Comment on above: Order Comment: Speci men Type: BLOOD SPECIMENOrdering Facility: [facility] Address: [address] [place] [address] Performed By: #### 3 084-1, 31261-1, 96565-8, 2776-1 ####[facility]IA [id number] [address] [address] [place] Bas Metab 2000 Pnl SerPlon 0 11-16-2024 Chloride [Moles/Vol] 97 mmol/L Low 98-107 [facility] Comment on above: Order Comment: Speci men Type: BLOOD SPECIMENOrdering Facility: [facility] Address: [address] [place] [address] Performed By: #### 2 4321-2, ####[facility] LABIA [id number] [address] [address] [place] Performed By: #### 2 4323-8, 2777-1, 2532-0, 3084-1 ####[facility]IA [id number] [address] [address] [place] Basic metabolic 2000 panelon 11-16-2024 Anion gap [Moles/Vol] 9 mmol/L Normal 8-15 [facility] Comment on above: Order Comment: Speci men Type: BLOOD SPECIMENOrdering Facility: [facility] Address: [address] [place] [address] Performed By: #### 2 4321-2, 45218-4 ####[facility]IA [id number] [address] [address] [place] Calcium [Mass/Vol] 9.4 mg/dL Normal 8.5-10.2 [facility] Comment on above: Order Comment: Speci men Type: BLOOD SPECIMENOrdering Facility: [facility] Address: [address] [place] [address] Performed By: #### 2 432-2, ####[facility] LABIA [id number] [address] [address] [place] CO2 [Moles/Vol] 29 mmol/L Normal 22-30 [facility] Comment on above: Order Comment: Speci men Type: BLOOD SPECIMENOrdering Facility: [facility] Address: [address] [place] [address] Performed By: #### 2 4322, ####[facility] LABIA [id number] [place] [address] [place] Creatinine [Mass/Vol] 0.61 mg/dL Normal 0.58-0.96 [facility] Comment on above: Order Comment: Speci men Type: BLOOD SPECIMENOrdering Facility: [facility] Address: [address] [place] [address] Performed By: #### 2 4321-2, ####[facility] LABIA [id number] [place] [address] [place] Creatinine and Glomerular filtration rate.predicted panel (S/P/Bld) 99 mL/min/1.73m??? Normal >=60 [facility] Comment on above: Order Comment: Speci men Type: BLOOD SPECIMENOrdering Facility: [facility] Address: [address] [place] [address] Result Comment: Cornell mated Glomerular Filtration Rate (eGFR) is calculated using the 2020 CKD-EPI creatinine equation. This equation utilizes serum creatinine, sex, and age as parameters. The creatinine assay has traceable calibration to isotope dilution-mass spectrometry. Refer to KDIGO guidelines for clinical interpretation. In patients with unstable renal function, e.g. those with acute kidney injury, the eGFR may not accurately reflect actual GFR. Performed By: #### 2 4320-07, ####[facility] [id number] [address] [address] [place] Glucose [Mass/Vol] 127 mg/dL High 74-99 [facility] Comment on above: Order Comment: Specvivian benitez Type: BLOOD SPECIMENOrdering Facility: [facility] Address: [address] [place] [address] Result Comment: The [place] Diabetes [employer] (ADA) provides guidance for cutoff values for fasting glucose and random glucose. The ADA defines fasting as no caloric intake for at least 8 hours. Fasting plasma glucose results between 100 to 125 mg/dL indicate increased risk for diabetes (prediabetes).Fasting plasma glucose results greater than or equal to 126 mg/dL meet the criteria for diagnosis of diabetes. In the absence of unequivocal hyperglycemia, results should be confirmed by repeat testing. In a patient with classic symptoms of hyperglycemia or hyperglycemic crisis, random plasma glucose results greater than or equal to 200 mg/dL meet the criteria for diagnosis of diabetes.Reference: Standards of Medical Care in Diabetes 2016, [place] [employer]. Diabetes Care. 2016.39(Suppl 1). Performed By: #### 2 4320-07, ####[facility]IA [id number] [address] [address] [place] Potassium [Moles/Vol] 4.2 mmol/L Normal 3.7-5.1 [facility] Comment on above: Order Comment: Bia benitez Type: BLOOD SPECIMENOrdering Facility: [facility] Address: [address] [place] [address] Performed By: #### 2 4320-07, ####[facility] [id number] [address] [address] [place] Sodium [Moles/Vol] 135 mmol/L Low 136-144 [facility] Comment on above: Order Comment: Speci men Type: BLOOD SPECIMENOrdering Facility: [facility] Address: [address] [place] [address] Performed By: #### 2 4321-2, 44084-9 ####[facility]IA [id number] [facility] [address] [place] [address] [place] Urea nitrogen [Mass/Vol] 16 mg/dL Normal 7-21 [facility] Comment on above: Order Comment: Speci men Type: BLOOD SPECIMENOrdering Facility: [facility] Address: [address] [place] [address] Performed By: #### 2 4321-2, ####[facility]CLIA [id number] [address] [place] [address] [facility] [place] CASE MANAGEMon 11-16-2024 CASE MANAGEM Normal [facility] CBC panel Auto (Bld)on 11-16 Erythrocyte distribution width (RBC) [Ratio] 15.8 % High 11.5-15.0 [facility] Comment on above: Order Comment: Speci men Type: BLOOD SPECIMENOrdering Facility: [facility] Address: [address] [place] [address] Performed By: #### 5 8410-2 ####[facility] [id number] [facility] [address] [place] [address] [place] Hematocrit (Bld) [Volume fraction] 32.5 % Low 36.0-46.0 [facility] Comment on above: Order Comment: Speci men Type: BLOOD SPECIMENOrdering Facility: [facility] Address: [address] [place], [place] [address] Performed By: #### 5 8410-2 ####[facility] LABCLIA [id number] [facility] [address] [place] [address] [place] Hemoglobin (Bld) [Mass/Vol] 10.5 g/dL Low 11.5-15.5 [facility] Comment on above: Order Comment: Speci men Type: BLOOD SPECIMENOrdering Facility: [facility] Address: [address] [place] [address] Performed By: #### 5 8410-2 ####[facility] [id number] [place] [address] [place] MCH (RBC) [Entitic mass] 27.5 pg Normal 26.0-34.0 [facility] Comment on above: Order Comment: Speci men Type: BLOOD SPECIMENOrdering Facility: [facility] Address: [address] [place] [address] Performed By: #### 5 8410-2 ####[facility] LAB[facility] [id number] [place] [address] [place] MCHC (RBC) [Mass/Vol] 32.3 g/dL Normal 30.5-36.0 [facility] Comment on above: Order Comment: Speci men Type: BLOOD SPECIMENOrdering Facility: [facility] Address: [address] [place] [address] Performed By: #### 5 8410-2 ####[facility] [id number] [place] [address] [place] MCV (RBC) [Entitic vol] 85.1 fL Normal 80.0-100.0 [facility] Comment on above: Order Comment: Speci men Type: BLOOD SPECIMENOrdering Facility: [facility] Address: [address] [place] [address] Performed By: #### 5 8410-2 ####[facility] LAB[facility] [id number] [place] [address] [place] Nucleated RBC (Bld) [#/Vol] 10*3/uL Normal <0.01 [facility] Comment on above: Order Comment: Speci men Type: BLOOD SPECIMENOrdering Facility: [facility] Address: [address] [place] [address] Performed By: #### 5 8410-2 ####[facility] LABCLIA [id number] [address] [place] [address] [place] Platelet mean volume (Bld) [Entitic vol] 10.1 fL Normal 9.0-12.7 [facility] Comment on above: Order Comment: Speci men Type: BLOOD SPECIMENOrdering Facility: [facility] Address: [address] [place] [address] Performed By: #### 5 8410-2 ####[facility] LABCLIA [id number] [address] [place] [address] [place] Platelets (Bld) [#/Vol] 303 10*3/uL Normal 150-400 [facility] Comment on above: Order Comment: Speci men Type: BLOOD SPECIMENOrdering Facility: [facility] Address: [address] [place] [address] Performed By: #### 5 8410-2 ####[facility]CLIA [id number] [address] [place] [address] [place] RBC (Bld) [#/Vol] 3.82 10*6/uL Low 3.90-5.20 [facility] Comment on above: Order Comment: Speci men Type: BLOOD SPECIMENOrdering Facility: [facility] Address: [address] [place] [address] Performed By: #### 5 8410-2 ####[facility] LABCLIA [id number] [address] [place] [address] [place] WBC (Bld) [#/Vol] 14.93 10*3/uL High 3.70-11.00 [facility] Comment on above: Order Comment: Speci men Type: BLOOD SPECIMENOrdering Facility: [facility] Address: [address] [place] [address] Performed By: #### 5 8410-2 ####[facility] LABCLIA [id number] [address] [address] [place] CK SerPl-cCncon 11-16-2024 CK [Catalytic activity/Vol] 47 U/L Normal 42-196 [facility] Comment on above: Order Comment: Speci men Type: BLOOD SPECIMENOrdering Facility: [facility] Address: [address] [place] [address] Performed By: #### H STNT, 2157-6 ####[facility] LABIA [id number] [place] [address] [place] CONSULTon 11-16-2024 CONSULT Normal [facility] CONSULT PROGon 11-16-2024 CONSULT PROG Normal [facility] Comprehensive metabolic 2000 panelon 11-16-2024 Albumin [Mass/Vol] 2.7 g/dL Low 3.9-4.9 [facility] Comment on above: Order Comment: Speci men Type: BLOOD SPECIMENOrdering Facility: [facility] Address: [address] [place] [address] Performed By: #### 2 4323-8, 3084-1, 2532-0, 2777-1 ####[facility] [id number] [place] [address] [place] ALP [Catalytic activity/Vol] 254 U/L High 34-123 [facility] Comment on above: Order Comment: Speci men Type: BLOOD SPECIMENOrdering Facility: [facility] Address: [address] [place] [address] Performed By: #### 2 4323-8, 3084-1, 2532-0, 2777-1 ####[facility] LABIA [id number] [place] [id number] [place] ALT [Catalytic activity/Vol] 33 U/L Normal 7-38 [facility] Comment on above: Order Comment: Speci men Type: BLOOD SPECIMENOrdering Facility: [facility] Address: [address] [place] [address] Performed By: #### 2 4323-8, 3084-1, 2532-0, 2777- ####[facility] LABCLIA [id number] [address] [address] [place] Anion gap [Moles/Vol] 11 mmol/L Normal 8-15 [facility] Comment on above: Order Comment: Speci men Type: BLOOD SPECIMENOrdering Facility: [facility] Address: [address] [place] [address] Performed By: #### 2 4323-8, 3084-1, 2532-0, 2776- ####[facility] LABCLIA [id number] [address] [address] [place] AST [Catalytic activity/Vol] 47 U/L High 13-35 [facility] Comment on above: Order Comment: Speci men Type: BLOOD SPECIMENOrdering Facility: [facility] Address: [address] [place] [address] Performed By: #### 2 4323-8, 3084-1, 2531-0, 2776-06 ####[facility]IA [id number] [place] [id number] [place] Bilirubin [Mass/Vol] 0.3 mg/dL Normal 0.2-1.3 [facility] Comment on above: Order Comment: Speci men Type: BLOOD SPECIMENOrdering Facility: [facility] Address: [address] [place], [place] [address] Performed By: #### 2 4323-8, 3084-1, 2-0, 2776-06 ####[facility] LABCLIA [id number] [address] [address] [place] Calcium [Mass/Vol] 8.6 mg/dL Normal 8.5-10.2 [facility] Comment on above: Order Comment: Speci men Type: BLOOD SPECIMENOrdering Facility: [facility] Address: [address] [place], [place] [address] Performed By: #### 2 4323-8, 3084-1, 2532-0, 2777-1 ####[facility] LABCLIA [id number] [address] [address] [place] Chloride [Moles/Vol] 98 mmol/L Normal 98-107 [facility] Comment on above: Order Comment: Speci men Type: BLOOD SPECIMENOrdering Facility: [facility] Address: [address] [place] [address] Performed By: #### 2 4323-8, 3084-1, 2532-0, 7-1 ####[facility] [id number] [place] [address] [place] CO2 [Moles/Vol] 26 mmol/L Normal 22-30 [facility] Comment on above: Order Comment: Speci men Type: BLOOD SPECIMENOrdering Facility: [facility] Address: [address] [place] [address] Performed By: #### 2 4323-8, 3084-1, 2532-0, 2776-1 ####[facility] LABIA [id number] [place] [address] [place] Creatinine [Mass/Vol] 0.71 mg/dL Normal 0.58-0.96 [facility] Comment on above: Order Comment: Speci men Type: BLOOD SPECIMENOrdering Facility: [facility] Address: [address] [place] [address] Performed By: #### 2 4323-8, 3084-1, 2532-0, 2776-1 ####[facility] [id number] [place] [address] [place] Creatinine and Glomerular filtration rate.predicted panel (S/P/Bld) 94 mL/min/1.73m??? Normal >=60 [facility] Comment on above: Order Comment: Speci men Type: BLOOD SPECIMENOrdering Facility: [facility] Address: [address] [place] [address] Result Comment: Cornell mated Glomerular Filtration Rate (eGFR) is calculated using the 2020 CKD-EPI creatinine equation. This equation utilizes serum creatinine, sex, and age as parameters. The creatinine assay has traceable calibration to isotope dilution-mass spectrometry. Refer to KDIGO guidelines for clinical interpretation. In patients with unstable renal function, e.g. those with acute kidney injury, the eGFR may not accurately reflect actual GFR. Performed By: #### 2 4323-8, 3084-1, 2-0, 2776- ####[facility] [id number] [address] [address] [place] Glucose [Mass/Vol] 240 mg/dL High 74-99 [facility] Comment on above: Order Comment: Bia benitez Type: BLOOD SPECIMENOrdering Facility: [facility] Address: [address] [place] [address] Result Comment: The [place] Diabetes Association (ADA) provides guidance for cutoff values for fasting glucose and random glucose. The ADA defines fasting as no caloric intake for at least 8 hours. Fasting plasma glucose results between 100 to 125 mg/dL indicate increased risk for diabetes (prediabetes).Fasting plasma glucose results greater than or equal to 126 mg/dL meet the criteria for diagnosis of diabetes. In the absence of unequivocal hyperglycemia, results should be confirmed by repeat testing. In a patient with classic symptoms of hyperglycemia or hyperglycemic crisis, random plasma glucose results greater than or equal to 200 mg/dL meet the criteria for diagnosis of diabetes.Reference: Standards of Medical Care in Diabetes 2016, [place] [employer]. Diabetes Care. 2016.39(Suppl 1). Performed By: #### 2 4323-8, 3084-1, 2531-0, 2776-06 ####[facility] [id number] [address] [address] [place] Potassium [Moles/Vol] 4.9 mmol/L Normal 3.7-5.1 [facility] Comment on above: Order Comment: Bia benitez Type: BLOOD SPECIMENOrdering Facility: [facility] Address: [address] [place] [address] Performed By: #### 2 4323-8, 3084-1, 2532-0, 2776-1 ####[facility] LABCLIA [id number] [address] [address] [place] Protein [Mass/Vol] 5.3 g/dL Low 6.3-8.0 [facility] Comment on above: Order Comment: Speci men Type: BLOOD SPECIMENOrdering Facility: [facility] Address: [address] [place] [address] Performed By: #### 2 4323-8, 3084-1, 2532-0, 2776- ####[facility] [id number] [place] [id number] [place] Sodium [Moles/Vol] 135 mmol/L Low 136-144 [facility] Comment on above: Order Comment: Speci men Type: BLOOD SPECIMENOrdering Facility: [facility] Address: [address] [place] [address] Performed By: #### 2 4323-8, 3084-1, 2-0, 2776-06 ####[facility] [id number] [place] [id number] [place] Urea nitrogen [Mass/Vol] 16 mg/dL Normal 7-21 [facility] Comment on above: Order Comment: Speci men Type: BLOOD SPECIMENOrdering Facility: [facility] Address: [address] [place], [place] [address] Performed By: #### 2 4323-8, 3084-1, 2532-0, 2776-06 ####[facility] [id number] [address] [address] [place] Albumin [Mass/Vol] 2.9 g/dL Low 3.9-4.9 [facility] Comment on above: Order Comment: Speci men Type: BLOOD SPECIMENOrdering Facility: [facility] Address: [address] [place] [address] Performed By: #### 2 777-1, 3084-1, 2532-0, 18020-0 ####[facility] LABCLIA [id number] [address] [address] [place] ALP [Catalytic activity/Vol] 265 U/L High 34-123 [facility] Comment on above: Order Comment: Speci men Type: BLOOD SPECIMENOrdering Facility: [facility] Address: [address] [place] [address] Performed By: #### 2 777-1, 3084-1, 2532-0, 95488-9 ####[facility] LABCLIA [id number] [place] [id number] [place] ALT [Catalytic activity/Vol] 36 U/L Normal 7-38 [facility] Comment on above: Order Comment: Speci men Type: BLOOD SPECIMENOrdering Facility: [facility] Address: [address] [place] [address] Performed By: #### 2 777-1, 3084-1, 253-0, 56732-1 ####[facility] [id number] [place] [id number] [place] Anion gap [Moles/Vol] 12 mmol/L Normal 8-15 [facility] Comment on above: Order Comment: Speci men Type: BLOOD SPECIMENOrdering Facility: [facility] Address: [address] [place] [address] Performed By: #### 2 777-1, 3084-1, 253-0, 93358-4 ####[facility] LABCLIA [id number] [address] [address] [place] AST [Catalytic activity/Vol] 50 U/L High 13-35 [facility] Comment on above: Order Comment: Speci men Type: BLOOD SPECIMENOrdering Facility: [facility] Address: [address] [place] [address] Performed By: #### 2 777-1, 3084-1, 2532-0, 59381-5 ####[facility] LABCLIA [id number] [address] [address] [place] Bilirubin [Mass/Vol] 0.3 mg/dL Normal 0.2-1.3 [facility] Comment on above: Order Comment: Speci men Type: BLOOD SPECIMENOrdering Facility: [facility] Address: [address] [place] [address] Performed By: #### 2 777-1, 3084-1, 0, 79922-5 ####[facility] LABCLIA [id number] [address] [address] [place] Calcium [Mass/Vol] 9.1 mg/dL Normal 8.5-10.2 [facility] Comment on above: Order Comment: Speci men Type: BLOOD SPECIMENOrdering Facility: [facility] Address: [address] [place] [address] Performed By: #### 2 777-1, 3084-1, 0, 10067-2 ####[facility] [id number] [place] [id number] [place] Chloride [Moles/Vol] 97 mmol/L Low 98-107 [facility] Comment on above: Order Comment: Speci men Type: BLOOD SPECIMENOrdering Facility: [facility] Address: [address] [place], [place] [address] Performed By: #### 2 777-1, 3084-1, 0, 96980-1 ####[facility] [id number] [address] [address] [place] CO2 [Moles/Vol] 26 mmol/L Normal 22-30 [facility] Comment on above: Order Comment: Speci men Type: BLOOD SPECIMENOrdering Facility: [facility] Address: [address] [place], [place] [address] Performed By: #### 2 777-1, 3084-1, 2532-0, ####[facility] [id number] [address] [address] [place] Creatinine [Mass/Vol] 0.79 mg/dL Normal 0.58-0.96 [facility] Comment on above: Order Comment: Bia benitez Type: BLOOD SPECIMENOrdering Facility: [facility] Address: [address] [place] [address] Performed By: #### 2 777-1, 3084-1, 0, ####[facility] [id number] [address] [address] [place] Creatinine and Glomerular filtration rate.predicted panel (S/P/Bld) 83 mL/min/1.73m??? Normal >=60 [facility] Comment on above: Order Comment: Bia benitez Type: BLOOD SPECIMENOrdering Facility: [facility] Address: [address] [place] [address] Result Comment: Cornell mated Glomerular Filtration Rate (eGFR) is calculated using the 2020 CKD-EPI creatinine equation. This equation utilizes serum creatinine, sex, and age as parameters. The creatinine assay has traceable calibration to isotope dilution-mass spectrometry. Refer to KDIGO guidelines for clinical interpretation. In patients with unstable renal function, e.g. those with acute kidney injury, the eGFR may not accurately reflect actual GFR. Performed By: #### 2 777-1, 3084-1, 0, ####[facility] [id number] [address] [address] [place] Glucose [Mass/Vol] 220 mg/dL High 74-99 [facility] Comment on above: Order Comment: Belli eli Type: BLOOD SPECIMENOrdering Facility: [facility] Address: [address] [place] [address] Result Comment: The [place] Diabetes Association (ADA) provides guidance for cutoff values for fasting glucose and random glucose. The ADA defines fasting as no caloric intake for at least 8 hours. Fasting plasma glucose results between 100 to 125 mg/dL indicate increased risk for diabetes (prediabetes).Fasting plasma glucose results greater than or equal to 126 mg/dL meet the criteria for diagnosis of diabetes. In the absence of unequivocal hyperglycemia, results should be confirmed by repeat testing. In a patient with classic symptoms of hyperglycemia or hyperglycemic crisis, random plasma glucose results greater than or equal to 200 mg/dL meet the criteria for diagnosis of diabetes.Reference: Standards of Medical Care in Diabetes 2016, [place] [employer]. Diabetes Care. 2016.39(Suppl 1). Performed By: #### 2 777-1, 3084-1, 2532-0, 74825-3 ####[facility] [id number] [place] [id number] [place] Potassium [Moles/Vol] 5.0 mmol/L Normal 3.7-5.1 [facility] Comment on above: Order Comment: Speci men Type: BLOOD SPECIMENOrdering Facility: [facility] Address: [address] [place] [address] Performed By: #### 2 777-1, 3084-1, 2531-0, 24935-9 ####[facility] [id number] [place] [id number] [place] Protein [Mass/Vol] 5.8 g/dL Low 6.3-8.0 [facility] Comment on above: Order Comment: Speci men Type: BLOOD SPECIMENOrdering Facility: [facility] Address: [address] [place], [place] [address] Performed By: #### 2 777-1, 3084-1, 2532-0, 48137-9 ####[facility] [id number] [place] [id number] [place] Sodium [Moles/Vol] 135 mmol/L Low 136-144 [facility] Comment on above: Order Comment: Speci men Type: BLOOD SPECIMENOrdering Facility: [facility] Address: [address] [place] [address] Performed By: #### 2 777-1, 3084-1, 2532-0, 55219-8 ####[facility] LABCLIA [id number] [address] [address] [place] Urea nitrogen [Mass/Vol] 18 mg/dL Normal 7-21 [facility] Comment on above: Order Comment: Speci men Type: BLOOD SPECIMENOrdering Facility: [facility] Address: [address] [place], [place] [address] Performed By: #### 2 777-1, 3084-1, 2532-0, 59593-4 ####[facility] [id number] [address] [address] [place] Albumin [Mass/Vol] 3.1 g/dL Low 3.9-4.9 [facility] Comment on above: Order Comment: Speci men Type: BLOOD SPECIMENOrdering Facility: [facility] Address: [address] [place] [address] Performed By: #### 2 4323-8, 2777-1, 2532-0, 3084-1 ####[facility] [id number] [address] [address] [place] ALP [Catalytic activity/Vol] 246 U/L High 34-123 [facility] Comment on above: Order Comment: Speci men Type: BLOOD SPECIMENOrdering Facility: [facility] Address: [address] [place], [place] [address] Performed By: #### 2 4323-8, 2777-1, 2532-0, 3084-1 ####[facility] [id number] [address] [address] [place] ALT [Catalytic activity/Vol] 31 U/L Normal 7-38 [facility] Comment on above: Order Comment: Speci men Type: BLOOD SPECIMENOrdering Facility: [facility] Address: [address] [place], [place] [address] Performed By: #### 2 4323-8, 2777-1, 2532-0, 3084-1 ####[facility] LABCL[facility] [id number] [address] [address] [place] Anion gap [Moles/Vol] 13 mmol/L Normal 8-15 [facility] Comment on above: Order Comment: Speci men Type: BLOOD SPECIMENOrdering Facility: [facility] Address: [address] [place] [address] Performed By: #### 2 4323-8, 2777-1, 2531-0, 3084-1 ####[facility] LABCLIA [id number] [place] [id number] [place] AST [Catalytic activity/Vol] 47 U/L High 13-35 [facility] Comment on above: Order Comment: Speci men Type: BLOOD SPECIMENOrdering Facility: [facility] Address: [address] [place] [address] Performed By: #### 2 4323-8, 2777-1, 2531-0, 308- ####[facility] [id number] [place] [id number] [place] Bilirubin [Mass/Vol] 0.4 mg/dL Normal 0.2-1.3 [facility] Comment on above: Order Comment: Speci men Type: BLOOD SPECIMENOrdering Facility: [facility] Address: [address] [place], [place] [address] Performed By: #### 2 4323-8, 2777-1, 2531-0, 3084- ####[facility] [id number] [place] [id number] [place] Calcium [Mass/Vol] 9.0 mg/dL Normal 8.5-10.2 [facility] Comment on above: Order Comment: Speci men Type: BLOOD SPECIMENOrdering Facility: [facility] Address: [address] [place], [place] [address] Performed By: #### 2 4323-8, 7-1, 2532-0, 3083-06 ####[facility] LABCLIA [id number] [place] [id number] [place] CO2 [Moles/Vol] 26 mmol/L Normal 22-30 [facility] Comment on above: Order Comment: Speci men Type: BLOOD SPECIMENOrdering Facility: [facility] Address: [address] [place] [address] Performed By: #### 2 4323-8, 2777-1, 2531-0, 3083- ####[facility] LABCLIA [id number] [place] [address] [place] Creatinine [Mass/Vol] 0.62 mg/dL Normal 0.58-0.96 [facility] Comment on above: Order Comment: Speci men Type: BLOOD SPECIMENOrdering Facility: [facility] Address: [address] [place] [address] Performed By: #### 2 4323-8, 277-, 0, 3083-06 ####[facility] [id number] [place] [address] [place] Creatinine and Glomerular filtration rate.predicted panel (S/P/Bld) 98 mL/min/1.73m??? Normal >=60 [facility] Comment on above: Order Comment: Speci men Type: BLOOD SPECIMENOrdering Facility: [facility] Address: [address] [place] [address] Result Comment: Cornell mated Glomerular Filtration Rate (eGFR) is calculated using the 2020 CKD-EPI creatinine equation. This equation utilizes serum creatinine, sex, and age as parameters. The creatinine assay has traceable calibration to isotope dilution-mass spectrometry. Refer to KDIGO guidelines for clinical interpretation. In patients with unstable renal function, e.g. those with acute kidney injury, the eGFR may not accurately reflect actual GFR. Performed By: #### 2 4323-8, 2777-1, 2532-0, 3083- ####[facility] LABCLIA [id number] [place] [address] [place] Glucose [Mass/Vol] 116 mg/dL High 74-99 [facility] Comment on above: Order Comment: Speci men Type: BLOOD SPECIMENOrdering Facility: [facility] Address: [address] [place] [address] Result Comment: The [place] Diabetes [employer] (ADA) provides guidance for cutoff values for fasting glucose and random glucose. The ADA defines fasting as no caloric intake for at least 8 hours. Fasting plasma glucose results between 100 to 125 mg/dL indicate increased risk for diabetes (prediabetes).Fasting plasma glucose results greater than or equal to 126 mg/dL meet the criteria for diagnosis of diabetes. In the absence of unequivocal hyperglycemia, results should be confirmed by repeat testing. In a patient with classic symptoms of hyperglycemia or hyperglycemic crisis, random plasma glucose results greater than or equal to 200 mg/dL meet the criteria for diagnosis of diabetes.Reference: Standards of Medical Care in Diabetes 2016, [place] Diabetes [employer]. Diabetes Care. 2016.39(Suppl 1). Performed By: #### 2 4323-8, 2777-1, 2532-0, 3084-1 ####[facility] LABCL[facility] [id number] [place] [address] [place] Potassium [Moles/Vol] 4.5 mmol/L Normal 3.7-5.1 [facility] Comment on above: Order Comment: Speci men Type: BLOOD SPECIMENOrdering Facility: [facility] Address: [address] [place] [address] Performed By: #### 2 4323-8, 2777-1, 2532-0, 3084-1 ####[facility] LAB[facility] [id number] [place] [address] [place] Protein [Mass/Vol] 5.9 g/dL Low 6.3-8.0 [facility] Comment on above: Order Comment: Speci men Type: BLOOD SPECIMENOrdering Facility: [facility] Address: [address] [place] [address] Performed By: #### 2 4323-8, 2777-1, 2532-0, 3084-1 ####[facility] LAB[facility]IA [id number] [place] [address] [place] Sodium [Moles/Vol] 136 mmol/L Normal 136-144 [facility] Comment on above: Order Comment: Speci men Type: BLOOD SPECIMENOrdering Facility: [facility] Address: [address] [place] [address] Performed By: #### 2 4323-8, 2777-1, 2532-0, 3084-1 ####[facility] LAB[facility] [id number] [place] [address] [place] Urea nitrogen [Mass/Vol] 17 mg/dL Normal 7-21 [facility] Comment on above: Order Comment: Speci men Type: BLOOD SPECIMENOrdering Facility: [facility] Address: [address] [place] [address] Performed By: #### 2 4323-8, 2777-1, 2532-0, 3084-1 ####[facility] [id number] [place] [address] [place] HIGH SENSITIVITY TROPONIN To n 11-16-2024 Troponin T.cardiac High sensitivity method [Mass/Vol] 7 ng/L Normal <12 [facility] Comment on above: Order Comment: Speci men Type: BLOOD SPECIMENOrdering Facility: [facility] Address: [address] [place] [address] Performed By: #### H STNT, 2157-6 ####[facility] [id number] [place] [address] [place] LDH SerPl-cCncon 11-16-2024 LDH [Catalytic activity/Vol] 2397 U/L High 135-214 [facility] Comment on above: Order Comment: Speci men Type: BLOOD SPECIMENOrdering Facility: [facility] Address: [address] [place] [address] Performed By: #### 2 4323-8, 3084-1, 2532-0, 2777-1 ####[facility] [id number] [address] [address] [place] LDH [Catalytic activity/Vol] 2346 U/L High 135-214 [facility] Comment on above: Order Comment: Speci men Type: BLOOD SPECIMENOrdering Facility: [facility] Address: [address] [place] [address] Performed By: #### 2 777-1, 3084-1, 2532-0, 85606-9 ####[facility] [id number] [place] [id number] [place] LDH [Catalytic activity/Vol] 2499 U/L High 135-214 [facility] Comment on above: Order Comment: Speci men Type: BLOOD SPECIMENOrdering Facility: [facility] Address: [address] [place] [address] Performed By: #### 2 4323-8, 2777-1, 2532-0, 3084-1 ####[facility] [id number] [place] [id number] [place] MEDICAL EMERon 11-16-2024 MEDICAL TAM Normal [facility] Magnesium SerPl-mCncon 11-16 Magnesium [Mass/Vol] 1.9 mg/dL Normal 1.7-2.3 [facility] Comment on above: Order Comment: Speci men Type: BLOOD SPECIMENOrdering Facility: [facility] Address: [address] [place], [place] [address] Performed By: #### 2 4321-2, 96584-5 ####[facility] [id number] [place] [id number] [place] NURSING PROGon 11-16-2024 NURSING PROG Normal [facility] PT EDon 11-16-2024 PT ED Normal [facility] Phosphate SerPl-mCncon 11-16 Phosphate [Mass/Vol] 2.2 mg/dL Low 2.7-4.8 [facility] Comment on above: Order Comment: Speci men Type: BLOOD SPECIMENOrdering Facility: [facility] Address: [address] [place] [address] Performed By: #### 2 4323-8, 3084-1, 2532-0, 2777-1 ####[facility] [id number] [place] [id number] [place] Phosphate [Mass/Vol] 2.6 mg/dL Low 2.7-4.8 [facility] Comment on above: Order Comment: Speci men Type: BLOOD SPECIMENOrdering Facility: [facility] Address: [address] [place] [address] Performed By: #### 2 777-1, 3084-1, 2532-0, 94020-0 ####[facility] [id number] [place] [address] [place] Phosphate [Mass/Vol] 3.0 mg/dL Normal 2.7-4.8 [facility] Comment on above: Order Comment: Speci men Type: BLOOD SPECIMENOrdering Facility: [facility] Address: [address] [place] [address] Performed By: #### 2 4323-8, 2777-1, 2532-0, 3084-1 ####[facility] [id number] [place] [id number] [place] SOCIAL WORKon 11-16-2024 SOCIAL WORK Normal [facility] THERAPY NTon 11-16-2024 THERAPY NT Normal [facility] Urate SerPl-mCncon Urate [Mass/Vol] 2.4 mg/dL Low 2.5-6.6 [facility] Comment on above: Order Comment: Speci men Type: BLOOD SPECIMENOrdering Facility: [facility] Address: [address] [place] [address] Performed By: #### 2 4323-8, 3084-1, 2532-0, 2777-1 ####[facility] [id number] [address] [address] [place] Urate [Mass/Vol] 2.8 mg/dL Normal 2.5-6.6 [facility] Comment on above: Order Comment: Speci men Type: BLOOD SPECIMENOrdering Facility: [facility] Address: [address] [place] [address] Performed By: #### 2 777-1, 3084-1, 2532-0, 65192-4 ####[facility] [id number] [address] [place] Urate [Mass/Vol] 3.5 mg/dL Normal 2.5-6.6 [facility] Comment on above: Order Comment: Speci men Type: BLOOD SPECIMENOrdering Facility: [facility] Address: [address] [place] [address] Performed By: #### 2 4323-8, 2777-1, 2532-0, 3084-1 ####[facility] [id number] [place] [id number] [place] CASE MANAGEMon 11-15-2024 CASE MANAGEM Normal [facility] CBC panel Auto (Bld)on 11-15 Erythrocyte distribution width (RBC) [Ratio] 15.8 % High 11.5-15.0 [facility] Comment on above: Order Comment: Speci men Type: BLOOD SPECIMENOrdering Facility: [facility] Address: [address] [place] [address] Performed By: #### 5 8410-2 ####[facility] [id number] [place] [id number] [place] Hematocrit (Bld) [Volume fraction] 30.9 % Low 36.0-46.0 [facility] Comment on above: Order Comment: Speci men Type: BLOOD SPECIMENOrdering Facility: [facility] Address: [address] [place] [address] Performed By: #### 5 8410-2 ####[facility] [id number] [place] [address] [place] Hemoglobin (Bld) [Mass/Vol] 10.0 g/dL Low 11.5-15.5 [facility] Comment on above: Order Comment: Speci men Type: BLOOD SPECIMENOrdering Facility: [facility] Address: [address] [place] [address] Performed By: #### 5 8410-2 ####[facility] [id number] [place] [address] [place] MCH (RBC) [Entitic mass] 27.5 pg Normal 26.0-34.0 [facility] Comment on above: Order Comment: Speci men Type: BLOOD SPECIMENOrdering Facility: [facility] Address: [address] [place] [address] Performed By: #### 5 8410-2 ####[facility] [id number] [address] [place] MCHC (RBC) [Mass/Vol] 32.4 g/dL Normal 30.5-36.0 [facility] Comment on above: Order Comment: Speci men Type: BLOOD SPECIMENOrdering Facility: [facility] Address: [address] [place] [address] Performed By: #### 5 8410-2 ####[facility] [id number] [place] [address] [place] MCV (RBC) [Entitic vol] 84.9 fL Normal 80.0-100.0 [facility] Comment on above: Order Comment: Speci men Type: BLOOD SPECIMENOrdering Facility: [facility] Address: [address] [place] [address] Performed By: #### 5 8410-2 ####[facility] [id number] [facility] [address] [place] [address] [place] Nucleated RBC (Bld) [#/Vol] 10*3/uL Normal <0.01 [facility] Comment on above: Order Comment: Speci men Type: BLOOD SPECIMENOrdering Facility: [facility] Address: [address] [place] [address] Performed By: #### 5 8410-2 ####[facility] LAB[facility] [id number] [address] [place] [address] [place] Platelet mean volume (Bld) [Entitic vol] 9.8 fL Normal 9.0-12.7 [facility] Comment on above: Order Comment: Speci men Type: BLOOD SPECIMENOrdering Facility: [facility] Address: [address] [place] [address] Performed By: #### 5 8410-2 ####[facility] [id number] [address], [place] [address] [place] Platelets (Bld) [#/Vol] 272 10*3/uL Normal 150-400 [facility] Comment on above: Order Comment: Speci men Type: BLOOD SPECIMENOrdering Facility: [facility] Address: [address] [place] [address] Performed By: #### 5 8410-2 ####[facility] [id number] [address] [place] [address] [place] RBC (Bld) [#/Vol] 3.64 10*6/uL Low 3.90-5.20 [facility] Comment on above: Order Comment: Speci men Type: BLOOD SPECIMENOrdering Facility: [facility] Address: [address] [place] [address] Performed By: #### 5 8410-2 ####[facility] [id number] [address] [place] [address] [place] WBC (Bld) [#/Vol] 12.52 10*3/uL High 3.70-11.00 [facility] Comment on above: Order Comment: Speci men Type: BLOOD SPECIMENOrdering Facility: [facility] Address: [address] [place] [address] Performed By: #### 5 8410-2 ####[facility] [id number] [place] [address] [place] CONSULT PROGon 11-15-2024 CONSULT PROG Normal [facility] CONSULT PROG Normal [facility] Comprehensive metabolic 2000 panelon 11-15-2024 Albumin [Mass/Vol] 2.7 g/dL Low 3.9-4.9 [facility] Comment on above: Order Comment: Speci men Type: BLOOD SPECIMENOrdering Facility: [facility] Address: [address] [place] [address] Performed By: #### 2 4323-8, 3084-1, , 2776-06 ####[facility] [id number] [place] [address] [place] ALP [Catalytic activity/Vol] 215 U/L High 34-123 [facility] Comment on above: Order Comment: Speci men Type: BLOOD SPECIMENOrdering Facility: [facility] Address: [address] [place] [address] Performed By: #### 2 4323-8, 3084-1, , 2776-06 ####[facility] [id number] [place] [id number] [place] ALT [Catalytic activity/Vol] 30 U/L Normal 7-38 [facility] Comment on above: Order Comment: Speci men Type: BLOOD SPECIMENOrdering Facility: [facility] Address: [address] [place] [address] Performed By: #### 2 4323-8, 3084-1, , 2776- ####[facility] [id number] [address] [address] [place] Anion gap [Moles/Vol] 11 mmol/L Normal 8-15 [facility] Comment on above: Order Comment: Speci men Type: BLOOD SPECIMENOrdering Facility: [facility] Address: [address] [place], [place] [address] Performed By: #### 2 4323-8, 3084-1, 92561-8, 2776- ####[facility] [id number] [address] [address] [place] AST [Catalytic activity/Vol] 49 U/L High 13-35 [facility] Comment on above: Order Comment: Speci men Type: BLOOD SPECIMENOrdering Facility: [facility] Address: [address] [place] [address] Result Comment: Resu lts may be falsely increased due to interference from hemolysis. Suggest reorder as clinically indicated. Performed By: #### 2 4323-8, 3084-1, 93724-3, 2776-06 ####[facility] LAB[facility] [id number] [address] [address] [place] Bilirubin [Mass/Vol] 0.3 mg/dL Normal 0.2-1.3 [facility] Comment on above: Order Comment: Speci men Type: BLOOD SPECIMENOrdering Facility: [facility] Address: [address] [place] [address] Performed By: #### 2 4323-8, 3084-1, 90304-0, 2776-06 ####[facility] [id number] [address] [address] [place] Calcium [Mass/Vol] 9.0 mg/dL Normal 8.5-10.2 [facility] Comment on above: Order Comment: Speci men Type: BLOOD SPECIMENOrdering Facility: [facility] Address: [address] [place], [place] [address] Performed By: #### 2 4323-8, 3084-1, 47665-7, 2777-1 ####[facility] [id number] [place] [address] [place] Chloride [Moles/Vol] 98 mmol/L Normal 98-107 [facility] Comment on above: Order Comment: Speci men Type: BLOOD SPECIMENOrdering Facility: [facility] Address: [address] [place] [address] Performed By: #### 2 4323-8, 3084-1, 02750-0, 2776-1 ####[facility] [id number] [place] [address] [place] CO2 [Moles/Vol] 24 mmol/L Normal 22-30 [facility] Comment on above: Order Comment: Speci men Type: BLOOD SPECIMENOrdering Facility: [facility] Address: [address] [place] [address] Performed By: #### 2 4323-8, 3084-1, 30749-4, 277-1 ####[facility] [id number] [place] [address] [place] Creatinine [Mass/Vol] 0.71 mg/dL Normal 0.58-0.96 [facility] Comment on above: Order Comment: Speci men Type: BLOOD SPECIMENOrdering Facility: [facility] Address: [address] [place] [address] Performed By: #### 2 4323-8, 3084-1, 06672-1, 277-1 ####[facility] [id number] [place] [address] [place] Creatinine and Glomerular filtration rate.predicted panel (S/P/Bld) 94 mL/min/1.73m??? Normal >=60 [facility] Comment on above: Order Comment: Speci men Type: BLOOD SPECIMENOrdering Facility: [facility] Address: [address] [place] [address] Result Comment: Cornell mated Glomerular Filtration Rate (eGFR) is calculated using the 2020 CKD-EPI creatinine equation. This equation utilizes serum creatinine, sex, and age as parameters. The creatinine assay has traceable calibration to isotope dilution-mass spectrometry. Refer to KDIGO guidelines for clinical interpretation. In patients with unstable renal function, e.g. those with acute kidney injury, the eGFR may not accurately reflect actual GFR. Performed By: #### 2 4323-8, 3084-1, , 2776-06 ####[facility] [id number] [address] [address] [place] Glucose [Mass/Vol] 235 mg/dL High 74-99 [facility] Comment on above: Order Comment: Specvivian benitez Type: BLOOD SPECIMENOrdering Facility: [facility] Address: [address] [place] [address] Result Comment: The [place] [employer] (ADA) provides guidance for cutoff values for fasting glucose and random glucose. The ADA defines fasting as no caloric intake for at least 8 hours. Fasting plasma glucose results between 100 to 125 mg/dL indicate increased risk for diabetes (prediabetes).Fasting plasma glucose results greater than or equal to 126 mg/dL meet the criteria for diagnosis of diabetes. In the absence of unequivocal hyperglycemia, results should be confirmed by repeat testing. In a patient with classic symptoms of hyperglycemia or hyperglycemic crisis, random plasma glucose results greater than or equal to 200 mg/dL meet the criteria for diagnosis of diabetes.Reference: Standards of Medical Care in Diabetes 2016, [place] [employer]. Diabetes Care. 2016.39(Suppl 1). Performed By: #### 2 4323-8, 3084-1, , 2776-06 ####[facility] [id number] [address] [address] [place] Potassium [Moles/Vol] 5.2 mmol/L High 3.7-5.1 [facility] Comment on above: Order Comment: Speci men Type: BLOOD SPECIMENOrdering Facility: [facility] Address: [address] [place] [address] Performed By: #### 2 4323-8, 3084-1, 85576-5, 277-1 ####[facility] [id number] [place] [address] [place] Protein [Mass/Vol] 6.2 g/dL Low 6.3-8.0 [facility] Comment on above: Order Comment: Speci men Type: BLOOD SPECIMENOrdering Facility: [facility] Address: [address] [place] [address] Performed By: #### 2 4323-8, 3084-1, 07193-8, 2776- ####[facility] [id number] [place] [address] [place] Sodium [Moles/Vol] 133 mmol/L Low 136-144 [facility] Comment on above: Order Comment: Speci men Type: BLOOD SPECIMENOrdering Facility: [facility] Address: [address] [place] [address] Performed By: #### 2 4323-8, 3084-1, 60657-8, 2776- ####[facility] [id number] [place] [id number] [place] Urea nitrogen [Mass/Vol] 18 mg/dL Normal 7-21 [facility] Comment on above: Order Comment: Speci men Type: BLOOD SPECIMENOrdering Facility: [facility] Address: [address] [place] [address] Performed By: #### 2 4323-8, 3084-1, 27618-3, 277- ####[facility] [id number] [place] [address] [place] LDH SerPl-cCncon 11-15-2024 LDH [Catalytic activity/Vol] 2448 U/L High 135-214 [facility] Comment on above: Order Comment: Speci men Type: BLOOD SPECIMENOrdering Facility: [facility] Address: [address] [place] [address] Result Comment: Hemo lysis present. The origin of the hemolysis, in vitro versus an in vivo hemolytic process, cannot be distinguished via this assay alone. In vitro hemolysis may lead to non-physiological (spurious) elevation in lactate dehydrogenase (LDH) results. Theresult should be interpreted in context of the clinical setting and other test results. Suggest reorder as clinically indicated. Performed By: #### 2 532-0 ####[facility] [id number] [place] [address] [place] Magnesium SerPl-mCncon 11-15 Magnesium [Mass/Vol] 2.0 mg/dL Normal 1.7-2.3 [facility] Comment on above: Order Comment: Speci men Type: BLOOD SPECIMENOrdering Facility: [facility] Address: [address] [place] [address] Performed By: #### 2 4323-8, 3084-1, 97629-2, 7- ####[facility] LAB[facility] [id number] [place] [id number] [place] Phosphate SerPl-mCncon 11-15 Phosphate [Mass/Vol] 3.1 mg/dL Normal 2.7-4.8 [facility] Comment on above: Order Comment: Speci men Type: BLOOD SPECIMENOrdering Facility: [facility] Address: [address] [place] [address] Performed By: #### 2 4323-8, 3084-1, , 2776- ####[facility] [id number] [place] [id number] [place] THERAPY NTon 11-15-2024 THERAPY NT Normal [facility] THERAPY NT Normal [facility] Urate SerPl-mCncon Urate [Mass/Vol] 4.6 mg/dL Normal 2.5-6.6 [facility] Comment on above: Order Comment: Speci men Type: BLOOD SPECIMENOrdering Facility: [facility] Address: [address] [place] [address] Performed By: #### 2 4323-8, 3084-1, 57697-6, 2777-1 ####[facility] [id number] [address] [address] [place] ALLIED HEALTHon 11-14-2024 ALLIED HEALTH Normal [facility] ANES POSTPROC EVALon 025 ANES POSTPROC EVAL Normal [facility] ANES PRE-OPon 11-14-2024 ANES PRE-OP Normal [facility] Albumin SerPl-mCncon 025 Albumin [Mass/Vol] 2.6 g/dL Low 3.9-4.9 [facility] Comment on above: Order Comment: Speci men Type: BLOOD SPECIMENOrdering Facility: [facility] Address: [address] [place] [address] Performed By: #### 1 751-7, 2777-1, 48705-6 ####[facility] [id number] [place] [id number] [place] Basic metabolic 2000 panelon 11-14-2024 Anion gap [Moles/Vol] 12 mmol/L Normal 8-15 [facility] Comment on above: Order Comment: Speci men Type: BLOOD SPECIMENOrdering Facility: [facility] Address: [address] [place] [address] Performed By: #### 1 751-7, 2777-1, 70197-3 ####[facility] [id number] [place] [id number] [place] Calcium [Mass/Vol] 9.5 mg/dL Normal 8.5-10.2 [facility] Comment on above: Order Comment: Speci men Type: BLOOD SPECIMENOrdering Facility: [facility] Address: [address] [place] [address] Result Comment: Resu lt rechecked. Performed By: #### 1 751-7, 2777-1, 31250-2 ####[facility] LABCLIA [id number] [address] [address] [place] Chloride [Moles/Vol] 102 mmol/L Normal 98-107 [facility] Comment on above: Order Comment: Speci men Type: BLOOD SPECIMENOrdering Facility: [facility] Address: [address] [place] [address] Performed By: #### 1 751-7, 2777-1, 15369-1 ####[facility] [id number] [place] [address] [place] CO2 [Moles/Vol] 25 mmol/L Normal 22-30 [facility] Comment on above: Order Comment: Speci men Type: BLOOD SPECIMENOrdering Facility: [facility] Address: [address] [place] [address] Performed By: #### 1 751-7, 2777-, 11416-0 ####[facility] [id number] [place] [id number] [place] Creatinine [Mass/Vol] 0.63 mg/dL Normal 0.58-0.96 [facility] Comment on above: Order Comment: Speci men Type: BLOOD SPECIMENOrdering Facility: [facility] Address: [address] [place] [address] Performed By: #### 1 751-7, 2777-, 86481-0 ####[facility] [id number] [place] [id number] [place] Creatinine and Glomerular filtration rate.predicted panel (S/P/Bld) 98 mL/min/1.73m??? Normal >=60 [facility] Comment on above: Order Comment: Speci men Type: BLOOD SPECIMENOrdering Facility: [facility] Address: [address] [place] [address] Result Comment: Cornell mated Glomerular Filtration Rate (eGFR) is calculated using the 2020 CKD-EPI creatinine equation. This equation utilizes serum creatinine, sex, and age as parameters. The creatinine assay has traceable calibration to isotope dilution-mass spectrometry. Refer to KDIGO guidelines for clinical interpretation. In patients with unstable renal function, e.g. those with acute kidney injury, the eGFR may not accurately reflect actual GFR. Performed By: #### 1 751-7, 2777-1, 90914-4 ####[facility] LAB[facility] [id number] [place] [id number] [place] Glucose [Mass/Vol] 98 mg/dL Normal 74-99 [facility] Comment on above: Order Comment: Bia benitez Type: BLOOD SPECIMENOrdering Facility: [facility] Address: [address] [place] [address] Result Comment: The [place] Diabetes [employer] (ADA) provides guidance for cutoff values for fasting glucose and random glucose. The ADA defines fasting as no caloric intake for at least 8 hours. Fasting plasma glucose results between 100 to 125 mg/dL indicate increased risk for diabetes (prediabetes).Fasting plasma glucose results greater than or equal to 126 mg/dL meet the criteria for diagnosis of diabetes. In the absence of unequivocal hyperglycemia, results should be confirmed by repeat testing. In a patient with classic symptoms of hyperglycemia or hyperglycemic crisis, random plasma glucose results greater than or equal to 200 mg/dL meet the criteria for diagnosis of diabetes.Reference: Standards of Medical Care in Diabetes 2016, [place] [employer]. Diabetes Care. 2016.39(Suppl 1). Performed By: #### 1 751-7, 2777-, 25251-9 ####[facility] [id number] [place] [id number] [place] Potassium [Moles/Vol] 4.6 mmol/L Normal 3.7-5.1 [facility] Comment on above: Order Comment: Bia benitez Type: BLOOD SPECIMENOrdering Facility: [facility] Address: [address] [place] [address] Performed By: #### 1 751-7, 2777-, 97346-0 ####[facility] LABCLIA [id number] [address] [place] [address] [place] Sodium [Moles/Vol] 139 mmol/L Normal 136-144 [facility] Comment on above: Order Comment: Speci men Type: BLOOD SPECIMENOrdering Facility: [facility] Address: [address] [place] [address] Performed By: #### 1 751-7, 2777-1, 58288-8 ####[facility] LAB[facility] [id number] [address], [place] [address] [place] Urea nitrogen [Mass/Vol] 16 mg/dL Normal 7-21 [facility] Comment on above: Order Comment: Speci men Type: BLOOD SPECIMENOrdering Facility: [facility] Address: [address] [place] [address] Performed By: #### 1 751-7, 2777-1, 66805-0 ####[facility] [id number] [place] [address] [place] CBC W Auto Differential pane l (Bld)on 11-14-2024 Basophils (Bld) [#/Vol] 10*3/uL Normal <0.11 [facility] Comment on above: Order Comment: Speci men Type: BLOOD SPECIMENOrdering Facility: [facility] Address: [address] [place] [address] Performed By: #### 5 7021-8, 28469-8 ####[facility] [id number] [address], [facility] [place] Basophils/100 WBC (Bld) 0.1 % Normal [facility] Comment on above: Order Comment: Speci men Type: BLOOD SPECIMENOrdering Facility: [facility] Address: [address] [place] [address] Performed By: #### 5 7021-8, 28983-7 ####[facility] [id number] [place] [id number] [place] Differential cell count method Nom (Bld) Auto Normal [facility] Comment on above: Order Comment: Speci men Type: BLOOD SPECIMENOrdering Facility: [facility] Address: [address] [place] [address] Performed By: #### 5 7021-8, 93406-6 ####[facility] LABCLIA [id number] [facility] [place] [place] [address] [place] Eosinophils (Bld) [#/Vol] 10*3/uL Normal <0.46 [facility] Comment on above: Order Comment: Speci men Type: BLOOD SPECIMENOrdering Facility: [facility] Address: [address] [place] [address] Performed By: #### 5 7021-8, 06027-8 ####[facility] LABCLIA [id number] [place] [address] [place] Eosinophils/100 WBC (Bld) 0.0 % Normal [facility] Comment on above: Order Comment: Speci men Type: BLOOD SPECIMENOrdering Facility: [facility] Address: [address] [place] [address] Performed By: #### 5 7021-8, 43945-1 ####[facility] LABCLIA [id number] [facility] [place] [address] [place] Immature granulocytes (Bld) [#/Vol] 0.13 10*3/uL High <0.10 [facility] Comment on above: Order Comment: Speci men Type: BLOOD SPECIMENOrdering Facility: [facility] Address: [address] [place] [address] Performed By: #### 5 7021-8, 35905-6 ####[facility] LABCLIA [id number] [facility] [place] [address] [place] Immature granulocytes/100 WBC (Bld) 1.2 % Normal [facility] Comment on above: Order Comment: Speci men Type: BLOOD SPECIMENOrdering Facility: [facility] Address: [address] [place], [place] [address] Performed By: #### 5 7021-8, 55560-1 ####[facility] [id number] [address] [address] [place] Lymphocytes (Bld) [#/Vol] 1.28 10*3/uL Normal 1.00-4.00 [facility] Comment on above: Order Comment: Speci men Type: BLOOD SPECIMENOrdering Facility: [facility] Address: [address] [place] [address] Performed By: #### 5 7021-8, 80035-1 ####[facility] [id number] [place] [address] [place] Lymphocytes/100 WBC (Bld) 11.4 % Normal [facility] Comment on above: Order Comment: Speci men Type: BLOOD SPECIMENOrdering Facility: [facility] Address: [address] [place] [address] Performed By: #### 5 7021-8, 78453-1 ####[facility] [id number] [place] [address] [place] Monocytes (Bld) [#/Vol] 0.60 10*3/uL Normal <0.87 [facility] Comment on above: Order Comment: Speci men Type: BLOOD SPECIMENOrdering Facility: [facility] Address: [address] [place] [address] Performed By: #### 5 7021-8, 42451-5 ####[facility] [id number] [place] [id number] [place] Monocytes/100 WBC (Bld) 5.3 % Normal [facility] Comment on above: Order Comment: Speci men Type: BLOOD SPECIMENOrdering Facility: [facility] Address: [address] [place] [address] Performed By: #### 5 7021-8, 94153-3 ####[facility] LAB[facility] [id number] [place] [address] [place] Neutrophils (Bld) [#/Vol] 9.24 10*3/uL High 1.45-7.50 [facility] Comment on above: Order Comment: Speci men Type: BLOOD SPECIMENOrdering Facility: [facility] Address: [address] [place] [address] Performed By: #### 5 7021-8, 89105-1 ####[facility] [id number] [place] [address] [place] Neutrophils/100 WBC (Bld) 82.0 % Normal [facility] Comment on above: Order Comment: Speci men Type: BLOOD SPECIMENOrdering Facility: [facility] Address: [address] [place] [address] Performed By: #### 5 7021-8, 79937-5 ####[facility] [id number] [place] [id number] [place] CBC panel Auto (Bld)on 11-14 Erythrocyte distribution width (RBC) [Ratio] 15.5 % High 11.5-15.0 [facility] Comment on above: Order Comment: Speci men Type: BLOOD SPECIMENOrdering Facility: [facility] Address: [address] [place] [address] Performed By: #### 5 7021-8, 33945-5 ####[facility] LABCLIA [id number] [place] [id number] [place] Hematocrit (Bld) [Volume fraction] 33.9 % Low 36.0-46.0 [facility] Comment on above: Order Comment: Speci men Type: BLOOD SPECIMENOrdering Facility: [facility] Address: [address] [place] [address] Performed By: #### 5 7021-8, 71618-2 ####[facility] [id number] [place] [address] [place] Hemoglobin (Bld) [Mass/Vol] 11.0 g/dL Low 11.5-15.5 [facility] Comment on above: Order Comment: Speci men Type: BLOOD SPECIMENOrdering Facility: [facility] Address: [address] [place] [address] Performed By: #### 5 7021-8, 10525-5 ####[facility] [id number] [place] [address] [place] MCH (RBC) [Entitic mass] 26.8 pg Normal 26.0-34.0 [facility] Comment on above: Order Comment: Speci men Type: BLOOD SPECIMENOrdering Facility: [facility] Address: [address] [place] [address] Performed By: #### 5 7021-8, 20676-4 ####[facility] [id number] [place] [address] [place] MCHC (RBC) [Mass/Vol] 32.4 g/dL Normal 30.5-36.0 [facility] Comment on above: Order Comment: Speci men Type: BLOOD SPECIMENOrdering Facility: [facility] Address: [address] [place] [address] Performed By: #### 5 7021-8, 59680-9 ####[facility] [id number] [place] [id number] [place] MCV (RBC) [Entitic vol] 82.7 fL Normal 80.0-100.0 [facility] Comment on above: Order Comment: Speci men Type: BLOOD SPECIMENOrdering Facility: [facility] Address: [address] [place] [address] Performed By: #### 5 7021-8, 72660-3 ####[facility] [id number] [address] [address] [place] Nucleated RBC (Bld) [#/Vol] 10*3/uL Normal <0.01 [facility] Comment on above: Order Comment: Speci men Type: BLOOD SPECIMENOrdering Facility: [facility] Address: [address] [place] [address] Performed By: #### 5 7021-8, 58356-7 ####[facility] [id number] [place] [address] [place] Platelet mean volume (Bld) [Entitic vol] 9.3 fL Normal 9.0-12.7 [facility] Comment on above: Order Comment: Speci men Type: BLOOD SPECIMENOrdering Facility: [facility] Address: [address] [place] [address] Performed By: #### 5 7021-8, 67612-3 ####[facility] [id number] [place] [address] [place] Platelets (Bld) [#/Vol] 275 10*3/uL Normal 150-400 [facility] Comment on above: Order Comment: Speci men Type: BLOOD SPECIMENOrdering Facility: [facility] Address: [address] [place] [address] Performed By: #### 5 7021-8, 42779-7 ####[facility] [id number] [place] [address] [place] RBC (Bld) [#/Vol] 4.10 10*6/uL Normal 3.90-5.20 [facility] Comment on above: Order Comment: Speci men Type: BLOOD SPECIMENOrdering Facility: [facility] Address: [address] [place] [address] Performed By: #### 5 7021-8, 52207-2 ####[facility] [id number] [place] [address] [place] WBC (Bld) [#/Vol] 10.83 10*3/uL Normal 3.70-11.00 [facility] Comment on above: Order Comment: Speci men Type: BLOOD SPECIMENOrdering Facility: [facility] Address: [address] [place] [address] Performed By: #### 5 7021-8, 36239-6 ####[facility]IA [id number] [place] [address] [place] CONSULTon 11-14-2024 CONSULT Normal [facility] CONSULT PROGon 11-14-2024 CONSULT PROG Normal [facility] CONSULT PROG Normal [facility] MRI BRAIN WO/W IVCONon 11-14 MRI BRAIN WO/W IVCON Normal [facility] MRI CERVICAL SPINE WO/W IVCO Non 11-14-2024 MRI CERVICAL SPINE WO/W IVCON Normal [facility] MRI LUMBAR SPINE WO/W IVCONo n 11-14-2024 MRI LUMBAR SPINE WO/W IVCON Normal [facility] MRI THORACIC SPINE WO/W IVCO Non 11-14-2024 MRI THORACIC SPINE WO/W IVCON Normal [facility] Phosphate SerPl-mCncon 11-14 Phosphate [Mass/Vol] 3.8 mg/dL Normal 2.7-4.8 [facility] Comment on above: Order Comment: Speci men Type: BLOOD SPECIMENOrdering Facility: [facility] Address: [address] [place] [address] Performed By: #### 1 751-7, 2777-1, 18685-4 ####[facility] [id number] [place] [address] [place] SOCIAL WORKon 11-14-2024 SOCIAL WORK Normal [facility] THERAPY NTon 11-14-2024 THERAPY NT Normal [facility] THERAPY NT Normal [facility] Urinalysis complete panel (U )on 11-14-2024 Bacteria LM.HPF (Urine sed) [#/Area] Negative Normal Negative [facility] Comment on above: Order Comment: Speci men Type: URINE SPECIMENOrdering Facility: [facility] Address: [facility] [place] [address] Performed By: #### 2 4356-8 ####[facility] LABCLIA [id number] [address] [place] [address] [place] Bilirubin Ql (U) Negative Normal Negative [facility] Comment on above: Order Comment: Speci men Type: URINE SPECIMENOrdering Facility: [facility] Address: [address] [place] [address] Performed By: #### 2 4356-8 ####[facility] LABCLIA [id number] [address], [facility] [place] Clarity (Unsp spec) Clear Normal Clear [facility] Comment on above: Order Comment: Speci men Type: URINE SPECIMENOrdering Facility: [facility] Address: [address] [place] [address] Performed By: #### 2 4356-8 ####[facility] [id number] [address], [facility] [place] Color (U) Yellow Normal Yellow [facility] Comment on above: Order Comment: Speci men Type: URINE SPECIMENOrdering Facility: [facility] Address: [address] [place] [address] Performed By: #### 2 4356-8 ####[facility] [id number] [address] [place] [address] [place] Epithelial cells LM.HPF (Urine sed) [#/Area] None Seen Normal [facility] Comment on above: Order Comment: Speci men Type: URINE SPECIMENOrdering Facility: [facility] Address: [address] [place] [address] Performed By: #### 2 4356-8 ####[facility] [id number] [address] [place] [address] [place] Glucose Test strip (U) [Mass/Vol] Negative Normal Negative [facility] Comment on above: Order Comment: Speci men Type: URINE SPECIMENOrdering Facility: [facility] Address: [address] [place] [address] Performed By: #### 2 4356-8 ####[facility] [id number] [place] [address] [place] Hemoglobin Ql (U) Negative Normal Negative [facility] Comment on above: Order Comment: Speci men Type: URINE SPECIMENOrdering Facility: [facility] Address: [address] [place] [address] Performed By: #### 2 4356-8 ####[facility] [id number] [place] [address] [place] Hyaline casts (Urine sed) [#/Area] 0 /[LPF] Normal 0 /LPF [facility] Comment on above: Order Comment: Speci men Type: URINE SPECIMENOrdering Facility: [facility] Address: [address] [place] [address] Performed By: #### 2 4356-8 ####[facility]CL[facility] [id number] [address] [place] Ketones Ql (U) Negative Normal Negative [facility] Comment on above: Order Comment: Speci men Type: URINE SPECIMENOrdering Facility: [facility] Address: [address] [place] [address] Performed By: #### 2 4356-8 ####[facility] [id number] [place] [address] [place] Leukocyte esterase Test strip Ql (U) Negative Normal Negative [facility] Comment on above: Order Comment: Speci men Type: URINE SPECIMENOrdering Facility: [facility] Address: [address] [place] [address] Performed By: #### 2 4356-8 ####[facility] [id number] [place] [address] [place] Nitrite Ql (U) Negative Normal Negative [facility] Comment on above: Order Comment: Speci men Type: URINE SPECIMENOrdering Facility: [facility] Address: [address] [place] [address] Performed By: #### 2 4356-8 ####[facility] [id number] [place] [address] [place] pH (U) 7.0 [pH] Normal <8.5 [facility] Comment on above: Order Comment: Speci men Type: URINE SPECIMENOrdering Facility: [facility] Address: [address] [place] [address] Performed By: #### 2 4356-8 ####[facility] [id number] [place] [address] [place] Protein (U) [Mass/Vol] Negative Normal Negative [facility] Comment on above: Order Comment: Speci men Type: URINE SPECIMENOrdering Facility: [facility] Address: [address] [place] [address] Performed By: #### 2 4356-8 ####[facility] [id number] [place] [address] [place] RBC LM.HPF (Urine sed) [#/Area] 0-2 /HPF Normal 0-2 /HPF [facility] Comment on above: Order Comment: Speci men Type: URINE SPECIMENOrdering Facility: [facility] Address: [address] [place] [address] Performed By: #### 2 4356-8 ####[facility] [id number] [place] [address] [place] Specific gravity (U) [Rel density] 1.011 Normal 1.005-1.03 0 [facility] Comment on above: Order Comment: Speci men Type: URINE SPECIMENOrdering Facility: [facility] Address: [address] [place] [address] Performed By: #### 2 4356-8 ####[facility] [id number] [place] [address] [place] Urobilinogen Ql (U) 1.0 EU/dL Normal 0.2-1.0 EU/dL [facility] Comment on above: Order Comment: Speci men Type: URINE SPECIMENOrdering Facility: [facility] Address: [address] [place] [address] Performed By: #### 2 4356-8 ####[facility] [id number] [place] [address] [place] WBC LM.HPF (Urine sed) [#/Area] 0-5 /HPF Normal 0-5 /HPF [facility] Comment on above: Order Comment: Speci men Type: URINE SPECIMENOrdering Facility: [facility] Address: [address] [place] [address] Performed By: #### 2 4356-8 ####[facility] [id number] [place] [address] [place] CASE MGT INIT ASSESon 2024 CASE MGT INIT ASSES Normal [facility] CBC panel Auto (Bld)on 11-13 Erythrocyte distribution width (RBC) [Ratio] 15.4 % High 11.5-15.0 [facility] Comment on above: Order Comment: Speci men Type: BLOOD SPECIMENOrdering Facility: [facility] Address: [address] [place] [address] Performed By: #### 5 8410-2 ####[facility] [id number] [place] [address] [place] Hematocrit (Bld) [Volume fraction] 34.1 % Low 36.0-46.0 [facility] Comment on above: Order Comment: Speci men Type: BLOOD SPECIMENOrdering Facility: [facility] Address: [address] [place] [address] Performed By: #### 5 8410-2 ####[facility] [id number] [place] [address] [place] Hemoglobin (Bld) [Mass/Vol] 11.2 g/dL Low 11.5-15.5 [facility] Comment on above: Order Comment: Speci men Type: BLOOD SPECIMENOrdering Facility: [facility] Address: [address] [place] [address] Performed By: #### 5 8410-2 ####[facility] [id number] [place] [address] [place] MCH (RBC) [Entitic mass] 27.0 pg Normal 26.0-34.0 [facility] Comment on above: Order Comment: Speci men Type: BLOOD SPECIMENOrdering Facility: [facility] Address: [address] [place] [address] Performed By: #### 5 8410-2 ####[facility] [id number] [place] [address] [place] MCHC (RBC) [Mass/Vol] 32.8 g/dL Normal 30.5-36.0 [facility] Comment on above: Order Comment: Speci men Type: BLOOD SPECIMENOrdering Facility: [facility] Address: [address] [place] [address] Performed By: #### 5 8410-2 ####[facility] [id number] [place] [address] [place] MCV (RBC) [Entitic vol] 82.2 fL Normal 80.0-100.0 [facility] Comment on above: Order Comment: Speci men Type: BLOOD SPECIMENOrdering Facility: [facility] Address: [address] [place] [address] Performed By: #### 5 8410-2 ####[facility] [id number] [place] [address] [place] Nucleated RBC (Bld) [#/Vol] 10*3/uL Normal <0.01 [facility] Comment on above: Order Comment: Speci men Type: BLOOD SPECIMENOrdering Facility: [facility] Address: [address] [place] [address] Performed By: #### 5 8410-2 ####[facility] [id number] [place] [address] [place] Platelet mean volume (Bld) [Entitic vol] 9.6 fL Normal 9.0-12.7 [facility] Comment on above: Order Comment: Speci men Type: BLOOD SPECIMENOrdering Facility: [facility] Address: [address] [place] [address] Performed By: #### 5 8410-2 ####[facility] [id number] [place] [address] [place] Platelets (Bld) [#/Vol] 405 10*3/uL High 150-400 [facility] Comment on above: Order Comment: Speci men Type: BLOOD SPECIMENOrdering Facility: [facility] Address: [address] [place] [address] Performed By: #### 5 8410-2 ####[facility] [id number] [place] [address] [place] RBC (Bld) [#/Vol] 4.15 10*6/uL Normal 3.90-5.20 [facility] Comment on above: Order Comment: Speci men Type: BLOOD SPECIMENOrdering Facility: [facility] Address: [address] [place] [address] Performed By: #### 5 8410-2 ####[facility] [id number] [place] [address] [place] WBC (Bld) [#/Vol] 13.79 10*3/uL High 3.70-11.00 [facility] Comment on above: Order Comment: Speci men Type: BLOOD SPECIMENOrdering Facility: [facility] Address: [address] [place] [address] Performed By: #### 5 8410-2 ####[facility] [id number] [facility] [place] [address] [place] CONSULTon 11-13-2024 CONSULT Normal [facility] CONSULT PROGon 11-13-2024 CONSULT PROG Normal [facility] Renal function 2000 panelon 11-13-2024 Albumin [Mass/Vol] 2.4 g/dL Low 3.9-4.9 [facility] Comment on above: Order Comment: Speci men Type: BLOOD SPECIMENOrdering Facility: [facility] Address: [address] [place] [address] Performed By: #### 2 4362-6 ####[facility] [id number] [facility] [place] [id number] [place] Anion gap [Moles/Vol] 12 mmol/L Normal 8-15 [facility] Comment on above: Order Comment: Speci men Type: BLOOD SPECIMENOrdering Facility: [facility] Address: [address] [place] [address] Performed By: #### 2 4362-6 ####[facility] [id number] [facility] [place] [id number] [place] Calcium [Mass/Vol] 7.7 mg/dL Low 8.5-10.2 [facility] Comment on above: Order Comment: Speci men Type: BLOOD SPECIMENOrdering Facility: [facility] Address: [address] [place] [address] Performed By: #### 2 4362-6 ####[facility] [id number] [facility] [place] [id number] [place] Chloride [Moles/Vol] 110 mmol/L High 98-107 [facility] Comment on above: Order Comment: Speci men Type: BLOOD SPECIMENOrdering Facility: [facility] Address: [address] [place] [address] Performed By: #### 2 4362-6 ####[facility] [id number] [place] [id number] [place] CO2 [Moles/Vol] 22 mmol/L Normal 22-30 [facility] Comment on above: Order Comment: Speci men Type: BLOOD SPECIMENOrdering Facility: [facility] Address: [address] [place] [address] Performed By: #### 2 4362-6 ####[facility] [id number] [address] STATES OF [facility] Creatinine [Mass/Vol] 0.47 mg/dL Low 0.58-0.96 [facility] Comment on above: Order Comment: Speci men Type: BLOOD SPECIMENOrdering Facility: [facility] Address: [address] [place] [address] Performed By: #### 2 4362-6 ####[facility] [id number] [address] Creatinine and Glomerular filtration rate.predicted panel (S/P/Bld) 105 mL/min/1.73m??? Normal >=60 [facility] Comment on above: Order Comment: Speci men Type: BLOOD SPECIMENOrdering Facility: [facility] Address: [address] [place] [address] Result Comment: Cornell mated Glomerular Filtration Rate (eGFR) is calculated using the 2020 CKD-EPI creatinine equation. This equation utilizes serum creatinine, sex, and age as parameters. The creatinine assay has traceable calibration to isotope dilution-mass spectrometry. Refer to KDIGO guidelines for clinical interpretation. In patients with unstable renal function, e.g. those with acute kidney injury, the eGFR may not accurately reflect actual GFR. Performed By: #### 2 4362-6 ####[facility] [id number] [place] [address] [place] Glucose [Mass/Vol] 65 mg/dL Low 74-99 [facility] Comment on above: Order Comment: Speci men Type: BLOOD SPECIMENOrdering Facility: [facility] Address: [address] [place] [address] Result Comment: The [place] [employer] (ADA) provides guidance for cutoff values for fasting glucose and random glucose. The ADA defines fasting as no caloric intake for at least 8 hours. Fasting plasma glucose results between 100 to 125 mg/dL indicate increased risk for diabetes (prediabetes).Fasting plasma glucose results greater than or equal to 126 mg/dL meet the criteria for diagnosis of diabetes. In the absence of unequivocal hyperglycemia, results should be confirmed by repeat testing. In a patient with classic symptoms of hyperglycemia or hyperglycemic crisis, random plasma glucose results greater than or equal to 200 mg/dL meet the criteria for diagnosis of diabetes.Reference: Standards of Medical Care in Diabetes 2016, [place] [employer]. Diabetes Care. 2016.39(Suppl 1). Performed By: #### 2 4362-6 ####[facility] [id number] [place] [address] [place] Phosphate [Mass/Vol] 2.4 mg/dL Low 2.7-4.8 [facility] Comment on above: Order Comment: Speci men Type: BLOOD SPECIMENOrdering Facility: [facility] Address: [address] [place] [address] Performed By: #### 2 4362-6 ####[facility] [id number] [place] [id number] [place] Potassium [Moles/Vol] 2.6 mmol/L Low 3.7-5.1 [facility] Comment on above: Order Comment: Speci men Type: BLOOD SPECIMENOrdering Facility: [facility] Address: [address] [place] [address] Performed By: #### 2 4362-6 ####[facility] [id number] [place] [id number] [place] Sodium [Moles/Vol] 144 mmol/L Normal 136-144 [facility] Comment on above: Order Comment: Speci men Type: BLOOD SPECIMENOrdering Facility: [facility] Address: [address] [place] [address] Performed By: #### 2 4362-6 ####[facility] [id number] [place] [address] [place] Urea nitrogen [Mass/Vol] 17 mg/dL Normal 7-21 [facility] Comment on above: Order Comment: Speci men Type: BLOOD SPECIMENOrdering Facility: [facility] Address: [address] [place] [address] Performed By: #### 2 4362-6 ####[facility] [id number] [place] [id number] [place] SOCIAL WORKon 11-13-2024 SOCIAL WORK Normal [facility] ALLIED HEALTHon 11-12-2024 ALLIED HEALTH Normal [facility] CBC panel Auto (Bld)on 11-12 Erythrocyte distribution width (RBC) [Ratio] 15.0 % Normal 11.5-15.0 [facility] Comment on above: Order Comment: Speci men Type: BLOOD SPECIMENOrdering Facility: [facility] Address: [address] [place] [address] Performed By: #### 5 8410-2 ####[facility] [id number] [place] [id number] [place] Hematocrit (Bld) [Volume fraction] 28.0 % Low 36.0-46.0 [facility] Comment on above: Order Comment: Speci men Type: BLOOD SPECIMENOrdering Facility: [facility] Address: [address] [place] [address] Performed By: #### 5 8410-2 ####[facility] [id number] [place] [address] [place] Hemoglobin (Bld) [Mass/Vol] 9.4 g/dL Low 11.5-15.5 [facility] Comment on above: Order Comment: Speci men Type: BLOOD SPECIMENOrdering Facility: [facility] Address: [address] [place] [address] Performed By: #### 5 8410-2 ####[facility] [id number] [address] [place] MCH (RBC) [Entitic mass] 27.6 pg Normal 26.0-34.0 [facility] Comment on above: Order Comment: Speci men Type: BLOOD SPECIMENOrdering Facility: [facility] Address: [address] [place] [address] Performed By: #### 5 8410-2 ####[facility] [id number] [address] [place] MCHC (RBC) [Mass/Vol] 33.6 g/dL Normal 30.5-36.0 [facility] Comment on above: Order Comment: Speci men Type: BLOOD SPECIMENOrdering Facility: [facility] [facility] Address: [address] [place] [address] Performed By: #### 5 8410-2 ####[facility] [id number] [place] [address] [place] MCV (RBC) [Entitic vol] 82.4 fL Normal 80.0-100.0 [facility] Comment on above: Order Comment: Speci men Type: BLOOD SPECIMENOrdering Facility: [facility] Address: [address] [place] [address] Performed By: #### 5 8410-2 ####[facility] [id number] [address] [place] Nucleated RBC (Bld) [#/Vol] 10*3/uL Normal <0.01 [facility] Comment on above: Order Comment: Speci men Type: BLOOD SPECIMENOrdering Facility: [facility] Address: [address] [place] [address] Performed By: #### 5 8410-2 ####[facility] [id number] [place] [address] [place] Platelet mean volume (Bld) [Entitic vol] 9.2 fL Normal 9.0-12.7 [facility] Comment on above: Order Comment: Speci men Type: BLOOD SPECIMENOrdering Facility: [facility] Address: [address] [place] [address] Performed By: #### 5 8410-2 ####[facility] [id number] [place] [address] [place] Platelets (Bld) [#/Vol] 318 10*3/uL Normal 150-400 [facility] Comment on above: Order Comment: Speci men Type: BLOOD SPECIMENOrdering Facility: [facility] Address: [address] [place] [address] Performed By: #### 5 8410-2 ####[facility] [id number] [place] [address] [place] RBC (Bld) [#/Vol] 3.40 10*6/uL Low 3.90-5.20 [facility] Comment on above: Order Comment: Speci men Type: BLOOD SPECIMENOrdering Facility: [facility] Address: [address] [place] [address] Performed By: #### 5 8410-2 ####[facility] [id number] [place] [address] [place] WBC (Bld) [#/Vol] 18.01 10*3/uL High 3.70-11.00 [facility] Comment on above: Order Comment: Speci men Type: BLOOD SPECIMENOrdering Facility: [facility] Address: [address] [place] [address] Performed By: #### 5 8410-2 ####[facility] LABCLIA [id number] [place] [id number] [place] CONSULTon 11-12-2024 CONSULT Normal [facility] HISTORY PHYSICALon HISTORY PHYSICAL Normal [facility] NURSING PROGon 11-12-2024 NURSING PROG Normal [facility] NURSING PROG HNO ID: [id number] Author: CLEOPATRA MILLAN, ADDI Service: Nursing Author Type: Registered Nurse Type: Nursing Progress Note Filed: 11/12/2024 00:06 Note Text: Patient discharged to [facility] at this time via EMS. No IV access currently, EMS, , and receiving RN aware. Normal [facility] Renal function 2000 panelon 11-12-2024 Albumin [Mass/Vol] 2.7 g/dL Low 3.9-4.9 [facility] Comment on above: Order Comment: Speci men Type: BLOOD SPECIMENOrdering Facility: [facility] Address: [address] [place] [address] Performed By: #### 2 4362-6 ####[facility] LAB[facility]IA [id number] [place] [address] [place] Anion gap [Moles/Vol] 11 mmol/L Normal 8-15 [facility] Comment on above: Order Comment: Speci men Type: BLOOD SPECIMENOrdering Facility: [facility] Address: [address] [place] [address] Performed By: #### 2 4362-6 ####[facility] LAB[facility]IA [id number] [address] [address] [place] Calcium [Mass/Vol] 9.4 mg/dL Normal 8.5-10.2 [facility] Comment on above: Order Comment: Speci men Type: BLOOD SPECIMENOrdering Facility: [facility] Address: [address] [place] [address] Performed By: #### 2 4362-6 ####[facility] LABCLIA [id number] [place] [address] [place] Chloride [Moles/Vol] 100 mmol/L Normal 98-107 [facility] Comment on above: Order Comment: Speci men Type: BLOOD SPECIMENOrdering Facility: [facility] Address: [address] [place] [address] Performed By: #### 2 4362-6 ####[facility] LAB[facility]IA [id number] [place] [address] [place] CO2 [Moles/Vol] 26 mmol/L Normal 22-30 [facility] Comment on above: Order Comment: Speci men Type: BLOOD SPECIMENOrdering Facility: [facility] Address: [address] [place] [address] Performed By: #### 2 4362-6 ####[facility] [id number] [place] [address] [place] Creatinine [Mass/Vol] 0.65 mg/dL Normal 0.58-0.96 [facility] Comment on above: Order Comment: Speci men Type: BLOOD SPECIMENOrdering Facility: [facility] Address: [address] [place] [address] Performed By: #### 2 4362-6 ####[facility] [id number] [address] [facility] Creatinine and Glomerular filtration rate.predicted panel (S/P/Bld) 97 mL/min/1.73m??? Normal >=60 [facility] Comment on above: Order Comment: Speci men Type: BLOOD SPECIMENOrdering Facility: [facility] Address: [address] [place] [address] Result Comment: Cornell mated Glomerular Filtration Rate (eGFR) is calculated using the 2020 CKD-EPI creatinine equation. This equation utilizes serum creatinine, sex, and age as parameters. The creatinine assay has traceable calibration to isotope dilution-mass spectrometry. Refer to KDIGO guidelines for clinical interpretation. In patients with unstable renal function, e.g. those with acute kidney injury, the eGFR may not accurately reflect actual GFR. Performed By: #### 2 4362-6 ####[facility] [id number] [place] [address] [place] Glucose [Mass/Vol] 117 mg/dL High 74-99 [facility] Comment on above: Order Comment: Speci men Type: BLOOD SPECIMENOrdering Facility: [facility] Address: [address] [place] [address] Result Comment: The [place] Diabetes Association (ADA) provides guidance for cutoff values for fasting glucose and random glucose. The ADA defines fasting as no caloric intake for at least 8 hours. Fasting plasma glucose results between 100 to 125 mg/dL indicate increased risk for diabetes (prediabetes).Fasting plasma glucose results greater than or equal to 126 mg/dL meet the criteria for diagnosis of diabetes. In the absence of unequivocal hyperglycemia, results should be confirmed by repeat testing. In a patient with classic symptoms of hyperglycemia or hyperglycemic crisis, random plasma glucose results greater than or equal to 200 mg/dL meet the criteria for diagnosis of diabetes.Reference: Standards of Medical Care in Diabetes 2016, [place] [employer]. Diabetes Care. 2016.39(Suppl 1). Performed By: #### 2 4362-6 ####[facility] [id number] [place] [address] [place] Phosphate [Mass/Vol] 2.6 mg/dL Low 2.7-4.8 [facility] Comment on above: Order Comment: Speci men Type: BLOOD SPECIMENOrdering Facility: [facility] Address: [address] [place] [address] Performed By: #### 2 4362-6 ####[facility] [id number] [place] [address] [place] Potassium [Moles/Vol] 4.4 mmol/L Normal 3.7-5.1 [facility] Comment on above: Order Comment: Speci men Type: BLOOD SPECIMENOrdering Facility: [facility] Address: [address] [place] [address] Performed By: #### 2 4362-6 ####[facility] LABCLIA [id number] [place] [address] [place] Sodium [Moles/Vol] 137 mmol/L Normal 136-144 [facility] Comment on above: Order Comment: Speci men Type: BLOOD SPECIMENOrdering Facility: [facility] Address: [address] [place] [address] Performed By: #### 2 4362-6 ####[facility] LAB[facility]IA [id number] [place] [address] [place] Urea nitrogen [Mass/Vol] 17 mg/dL Normal 7-21 [facility] Comment on above: Order Comment: Speci men Type: BLOOD SPECIMENOrdering Facility: [facility] Address: [address] [place] [address] Performed By: #### 2 4362-6 ####[facility] LABCLIA [id number] [place] [address] [place] SEPSIS LACTATEon 11-12-2024 Lactate [Moles/Vol] 1.7 mmol/L Normal <=2.0 [facility] Comment on above: Order Comment: Speci men Type: BLOOD SPECIMENOrdering Facility: [facility] Address: [address] [place] [address] Performed By: #### S LACT ####[facility] LABCLIA [id number] [place] [address] [place] CBC panel Auto (Bld)on 11-11 Erythrocyte distribution width (RBC) [Ratio] 14.6 % Normal 11.5-15.0 [facility] Comment on above: Order Comment: Speci men Type: BLOOD SPECIMEN [facility] Address: [address] [place] [address] Performed By: #### 2 4323-8, 17717-8, 2777-1, TSHRF, 3024-7 #### [facility] CLIA [id number] [address] [place], [place] [address] [place] Hematocrit (Bld) [Volume fraction] 28.4 % Low 36.0-46.0 [facility] Comment on above: Order Comment: Speci men Type: BLOOD SPECIMEN [facility] Address: [address] [place] [address] Performed By: #### 2 4323-8, 17319-0, 2777-1, TSHRF, 302-7 #### [facility] CLIA [id number] [address] [place], [place] [address] [place] Hemoglobin (Bld) [Mass/Vol] 9.5 g/dL Low 11.5-15.5 [facility] Comment on above: Order Comment: Speci men Type: BLOOD SPECIMEN [facility] Address: [address] [place] [address] Performed By: #### 2 4323-8, 53032-6, 2776-, [facility], 302-7 #### [facility] CLIA [id number] [address] [place] [address] [place] MCH (RBC) [Entitic mass] 27.9 pg Normal 26.0-34.0 [facility] Comment on above: Order Comment: Speci men Type: BLOOD SPECIMEN [facility] Address: [address] [place] [address] Performed By: #### 2 4323-8, 62522-6, 2776-, TSH[facility], 302-7 #### [facility] CLIA [id number] [address] [place], [place] [address] [place] MCHC (RBC) [Mass/Vol] 33.5 g/dL Normal 30.5-36.0 [facility] Comment on above: Order Comment: Speci men Type: BLOOD SPECIMEN [facility] Address: [address] [place] [address] Performed By: #### 2 4323-8, 86559-6, 2777-1, TSHRF, 302-7 #### [facility] CLIA [id number] [address] [place] [address] [place] MCV (RBC) [Entitic vol] 83.5 fL Normal 80.0-100.0 [facility] Comment on above: Order Comment: Speci men Type: BLOOD SPECIMEN [facility] Address: [address] [place] [address] Performed By: #### 2 4323-8, 70173-2, 2776-1, TSHRF, 302-7 #### [facility] CLIA [id number] [address] [place] [address] [place] Nucleated RBC (Bld) [#/Vol] 10*3/uL Normal <0.01 [facility] Comment on above: Order Comment: Speci men Type: BLOOD SPECIMEN [facility] Address: [address] [place] [address] Performed By: #### 2 4323-8, 42675-1, 2776-1, TSHRF, 302-7 #### [facility] CLIA [id number] [address] [place] [address] [place] Platelet mean volume (Bld) [Entitic vol] 9.8 fL Normal 9.0-12.7 [facility] Comment on above: Order Comment: Speci men Type: BLOOD SPECIMEN [facility] Address: [address] [place] [address] Performed By: #### 2 4323-8, 97502-6, 2776-1, TSHRF, 3023-7 #### [facility] CLIA [id number] [address] [place] [address] [place] Platelets (Bld) [#/Vol] 298 10*3/uL Normal 150-400 [facility] Comment on above: Order Comment: Speci men Type: BLOOD SPECIMEN [facility] Address: [address] [place] [address] Performed By: #### 2 4323-8, 30513-7, 277-1, TSHRF, 302-7 #### [facility] CLIA [id number] [address] [place] [address] [place] RBC (Bld) [#/Vol] 3.40 10*6/uL Low 3.90-5.20 [facility] Comment on above: Order Comment: Speci men Type: BLOOD SPECIMEN [facility] Address: [address] [place] [address] Performed By: #### 2 4323-8, 04525-1, 2777-1, TSH, 3024-7 #### [facility] CLIA [id number] [address] [place] [address] [place] WBC (Bld) [#/Vol] 10.96 10*3/uL Normal 3.70-11.00 [facility] Comment on above: Order Comment: Speci men Type: BLOOD SPECIMEN [facility] Address: [address] [place] [address] Performed By: #### 2 4323-8, 82948-6, 2777-1, [facility], 3024-7 #### [facility] CLIA [id number] [address] [place], [place] [address] [place] Lactate (Bld) [Moles/Vol]on 11-11-2024 Lactate [Moles/Vol] 1.9 mmol/L Normal 0.4-2.0 [facility] Comment on above: Order Comment: Speci men Type: BLOOD SPECIMEN [facility] Address: [address] [place] [address] Performed By: #### 2 4323-8, 02125-9, 2777-1, [facility], 3024-7 #### [facility] CLIA [id number] [address] [place], [place] [address] [place] Lactate [Moles/Vol] 2.4 mmol/L High 0.4-2.0 [facility] Comment on above: Order Comment: Speci men Type: BLOOD SPECIMEN [facility] Address: [address] [place] [address] Performed By: #### 2 4323-8, 34157-4, 7-1, [facility], 302-7 #### [facility] CLIA [id number] [address] [place], [place] [address] [place] NURSING PROGon 11-11-2024 NURSING PROG HNO ID: [id number] Author: CLEOPATRA MILLAN, RN Service: Nursing Author Type: Registered Nurse Type: Nursing Progress Note Filed: 11/11/2024 23:29 Note Text: Report called to RN assuming care at [facility]. Patient is going to [facility] Bed 2. Transport arranged. Normal [facility] NURSING PROG HNO ID: [id number] Author: CANDACE MCKOEN RN Service: ? Author Type: Registered Nurse Type: Nursing Progress Note Filed: 11/11/2024 09:44 Note Text: Pt refusing to wear ekg monitor and cont pulse ox. Pneumatic compression sleeves are also off of this pt, she is refusing to wear these as well at this time . MD Natarajan made aware. Normal [facility] Renal function 2000 panelon 11-11-2024 Albumin [Mass/Vol] 2.1 g/dL Low 3.2-5.0 [facility] Comment on above: Order Comment: Specvivian men Type: BLOOD SPECIMEN [facility] Address: [address] [place] [address] Performed By: #### 2 4323-8, 32298-1, 2776-1, [facility], 302-7 #### [facility] CLIA [id number] [address] [place], [place] [address] [place] Anion gap [Moles/Vol] mmol/L Low 5-16 [facility] Comment on above: Order Comment: Speci men Type: BLOOD SPECIMEN [facility] Address: [address] [place] [address] Performed By: #### 2 4323-8, 43313-0, 2777-1, T[facility], 3024-7 #### [facility] CLIA [id number] [address] [place], [place] [address] [place] Calcium [Mass/Vol] 9.0 mg/dL Normal 8.5-10.5 [facility] Comment on above: Order Comment: Speci men Type: BLOOD SPECIMEN [facility] Address: [address] [place], [place] [address] Performed By: #### 2 4323-8, 75935-2, 2777-1, TSH[facility], 302-7 #### [facility] CLIA [id number] [address] [place], [place] [address] [place] Chloride [Moles/Vol] 104 mmol/L Normal 98-107 [facility] Comment on above: Order Comment: Speci men Type: BLOOD SPECIMEN [facility] Address: [address] [place] [address] Performed By: #### 2 4323-8, 88028-0, 2776-1, TSHRF, 7 #### [facility] CLIA [id number] [address] [place] [address] [place] CO2 [Moles/Vol] 29 mmol/L Normal 21-32 [facility] Comment on above: Order Comment: Speci men Type: BLOOD SPECIMEN [facility] Address: [address] [place] [address] Performed By: #### 2 4323-8, 57298-1, 2776-1, TSHRF, 7 #### [facility] CLIA [id number] [address] [place] [address] [place] Creatinine [Mass/Vol] 0.47 mg/dL Low 0.51-0.95 [facility] Comment on above: Order Comment: Speci men Type: BLOOD SPECIMEN [facility] Address: [address] [place] [address] Result Comment: Jeanne ents receiving either N-Acetylcysteine (NAC) or Metamizole prior to venipuncture, may have falsely depressed results. Performed By: #### 2 4323-8, 63030-4, 2777-1, TSHRF, 302-7 #### [facility] CLIA [id number] [address] [place] [address] [place] Creatinine and Glomerular filtration rate.predicted panel (S/P/Bld) 105 mL/min/1.73m??? Normal >=60 [facility] Comment on above: Order Comment: Bia benitez Type: BLOOD SPECIMEN [facility] Address: [address] [place] [address] Result Comment: Cornell mated Glomerular Filtration Rate (eGFR) is calculated using the 2020 CKD-EPI creatinine equation. This equation utilizes serum creatinine, sex, and age as parameters. The creatinine assay has traceable calibration to isotope dilution-mass spectrometry. Refer to KDIGO guidelines for clinical interpretation. In patients with unstable renal function, e.g. those with acute kidney injury, the eGFR may not accurately reflect actual GFR. Performed By: #### 2 4323-8, 38472-9, 2777-1, [facility], 3024-7 #### [facility] CLIA [id number] [address] [place] [address] [place] Glucose [Mass/Vol] 391 mg/dL High 70-100 [facility] Comment on above: Order Comment: Bia benitez Type: BLOOD SPECIMEN [facility] Address: [address] [place] [address] Result Comment: The [place] Diabetes [employer] (ADA) provides guidance for cutoff values for fasting glucose and random glucose. The ADA defines fasting as no caloric intake for at least 8 hours. Fasting plasma glucose results between 100 to 125 mg/dL indicate increased risk for diabetes (prediabetes). Fasting plasma glucose results greater than or equal to 126 mg/dL meet the criteria for diagnosis of diabetes. In the absence of unequivocal hyperglycemia, results should be confirmed by repeat testing. In a patient with classic symptoms of hyperglycemia or hyperglycemic crisis, random plasma glucose results greater than or equal to 200 mg/dL meet the criteria for diagnosis of diabetes. Reference: Standards of Medical Care in Diabetes 2016, [place] [employer]. Diabetes Care. 2016.39(Suppl 1). Results may be falsely elevated after the administration of Sulfapyridine. Results may be falsely depressed after the administration of Sulfasalazine. Performed By: #### 2 4323-8, 05511-6, 2777-1, TSHRF, 3024-7 #### [facility] CLIA [id number] [address] [place], [place] [address] [place] Phosphate [Mass/Vol] 2.4 mg/dL Low 2.5-4.9 [facility] Comment on above: Order Comment: Belli eli Type: BLOOD SPECIMEN [facility] Facility[facility] Address: [address] [place] [address] Result Comment: Elev ated m-protein (paraprotein) levels in the serum may be exhibited in patients with monoclonal gammopathies, causing falsely elevated inorganic phosphorus results. Performed By: #### 2 4323-8, 54008-5, 2777-1, TSHRF, 3023-7 #### [facility] CLIA [id number] [address] [place] [address] [place] Potassium [Moles/Vol] 4.5 mmol/L Normal 3.5-5.1 [facility] Comment on above: Order Comment: Belli men Type: BLOOD SPECIMEN [facility]ing Facility: [facility] Address: [address] [place] [address] Performed By: #### 2 4323-8, 21798-6, 2776-1, TSH[facility], 3023- #### [facility] CLIA [id number] [address] [place], [place] [address] [place] Sodium [Moles/Vol] 127 mmol/L Low 136-145 [facility] Comment on above: Order Comment: Speci men Type: BLOOD SPECIMEN [facility]ing Facility: [facility] Address: [address] [place] [address] Performed By: #### 2 4323-8, 81841-8, 2776-1, TSHRF, 302-7 #### [facility] CLIA [id number] [address] [place], [place] [address] [place] Urea nitrogen [Mass/Vol] 13 mg/dL Normal 7-26 [facility] Comment on above: Order Comment: Belli men Type: BLOOD SPECIMEN [facility]ing Facility: [facility] Address: [address] [place] [address] Performed By: #### 2 4323-8, 31085-2, 2777-1, TSH, 3024-7 #### [facility] CLIA [id number] [address] [place], [place] [address] [place] ALLIED HEALTHon 11-10-2024 ALLIED HEALTH HNO ID: [id number] Author: ARSENIO LERMA Chaplain Service: Spiritual Care Author Type: Senior Database Administrator Type: Allied Health Filed: 11/10/2024 15:32 Note Text: SPIRITUALCARE Spiritual Care Visit- Brief Note Name: Doreen Denise Date:11/10/2024 Notes: The pt was with the family member. Both were asleep. Senior Database Administrator used the [employer] presence. Senior Database Administrator Signature: Arsenio Lerma To contact the Spiritual Care Department: Please call [phone] or Page the On-Call Senior Database Administrator at pager [phone]. Thank you for the opportunity to be of service. This is an electronically created document. IF PRINTED, PLEASE DO NOT REMOVE FROM THE CHART OR MODIFY PRINTED COPY. Normal [facility] Basic metabolic 2000 panelon 11-10-2024 Anion gap [Moles/Vol] 8 mmol/L Normal 5-16 [facility] Comment on above: Order Comment: Speci men Type: BLOOD SPECIMEN [facility]ing Facility: [facility] Address: [address] [place] [address] Performed By: #### 2 4323-8, 58378-5, 2777-1, [facility], 3024-7 #### [facility] CLIA [id number] [address] [place] [address] [place] Calcium [Mass/Vol] 8.7 mg/dL Normal 8.5-10.5 [facility] Comment on above: Order Comment: Speci men Type: BLOOD SPECIMEN Ordering Facility: [facility] Address: [address] [place] [address] Performed By: #### 2 4323-8, 77229-4, 7-1, [facility], 302-7 #### [facility] CLIA [id number] [address] [place], [place] [address] [place] Chloride [Moles/Vol] 96 mmol/L Low 98-107 [facility] Comment on above: Order Comment: Speci men Type: BLOOD SPECIMEN [facility]ing Facility: [facility] Address: [address] [place] [address] Performed By: #### 2 4323-8, 15757-5, 2776-1, [facility], 302-7 #### [facility] CLIA [id number] [address] [place], [place] [address] [place] CO2 [Moles/Vol] 26 mmol/L Normal 21-32 [facility] Comment on above: Order Comment: Speci men Type: BLOOD SPECIMEN Ordering Facility: [facility] Address: [address] [place] [address] Performed By: #### 2 4323-8, 95079-9, 2776-1, TSH, 302-7 #### [facility] CLIA [id number] [address] [place] [address] [place] Creatinine [Mass/Vol] 0.49 mg/dL Low 0.51-0.95 [facility] Comment on above: Order Comment: Speci men Type: BLOOD SPECIMEN Ordering Facility: [facility] Address: [address] [place] [address] Result Comment: Jeanne ents receiving either N-Acetylcysteine (NAC) or Metamizole prior to venipuncture, may have falsely depressed results. Performed By: #### 2 4323-8, 87232-3, 277-1, TSH, 302-7 #### [facility] CLIA [id number] [address] [place] [address] [place] Creatinine and Glomerular filtration rate.predicted panel (S/P/Bld) 104 mL/min/1.73m??? Normal >=60 [facility] Comment on above: Order Comment: Speci men Type: BLOOD SPECIMEN Ordering Facility: [facility] Address: [address] [place] [address] Result Comment: Cornell mated Glomerular Filtration Rate (eGFR) is calculated using the 2020 CKD-EPI creatinine equation. This equation utilizes serum creatinine, sex, and age as parameters. The creatinine assay has traceable calibration to isotope dilution-mass spectrometry. Refer to KDIGO guidelines for clinical interpretation. In patients with unstable renal function, e.g. those with acute kidney injury, the eGFR may not accurately reflect actual GFR. Performed By: #### 2 4323-8, 46195-5, 2777-1, [facility], 302-7 #### [facility] CLIA [id number] [address] [place], [place] [address] [place] Glucose [Mass/Vol] 344 mg/dL High 70-100 [facility] Comment on above: Order Comment: Bia benitez Type: BLOOD SPECIMEN Ordering Facility: [facility] Address: [address] [place] [address] Result Comment: The [place] Diabetes Association (ADA) provides guidance for cutoff values for fasting glucose and random glucose. The ADA defines fasting as no caloric intake for at least 8 hours. Fasting plasma glucose results between 100 to 125 mg/dL indicate increased risk for diabetes (prediabetes). Fasting plasma glucose results greater than or equal to 126 mg/dL meet the criteria for diagnosis of diabetes. In the absence of unequivocal hyperglycemia, results should be confirmed by repeat testing. In a patient with classic symptoms of hyperglycemia or hyperglycemic crisis, random plasma glucose results greater than or equal to 200 mg/dL meet the criteria for diagnosis of diabetes. Reference: Standards of Medical Care in Diabetes 2016, [place] Diabetes Association. Diabetes Care. 2016.39(Suppl 1). Results may be falsely elevated after the administration of Sulfapyridine. Results may be falsely depressed after the administration of Sulfasalazine. Performed By: #### 2 4323-8, 65135-2, 277-1, [facility], 302-7 #### [facility] CLIA [id number] [address] [place], [place] [address] [place] Potassium [Moles/Vol] 4.8 mmol/L Normal 3.5-5.1 [facility] Comment on above: Order Comment: Speci men Type: BLOOD SPECIMEN Ordering Facility: [facility] Address: [facility] [place] [id number] Performed By: #### 2 4323-8, 40122-5, 2776-1, TSHRF, 7 #### [facility] CLIA [id number] [address] [place], [place] [address] [place] Sodium [Moles/Vol] 130 mmol/L Low 136-145 [facility] Comment on above: Order Comment: Speci men Type: BLOOD SPECIMEN Ordering Facility: [facility] Address: [address] [place], [place] [address] Performed By: #### 2 4323-8, 63531-7, 2776-1, TSHRF, 3023-12 #### [facility] CLIA [id number] [address] [place], [place] [address] [place] Urea nitrogen [Mass/Vol] 10 mg/dL Normal 01-12 [facility] Comment on above: Order Comment: Speci men Type: BLOOD SPECIMEN Ordering Facility: [facility] Address: [address] [place], [place] [address] Performed By: #### 2 4323-8, 59465-0, 2776-1, TSHRF, 7 #### [facility] CLIA [id number] [address] [place], [place] [address] [place] CBC panel Auto (Bld)on 11-10 Erythrocyte distribution width (RBC) [Ratio] 14.7 % Normal 11.5-15.0 [facility] Comment on above: Order Comment: Speci men Type: BLOOD SPECIMEN Ordering Facility: [facility] Address: [address] [place], [place] [address] Performed By: #### 2 4323-8, 40754-3, 2776-1, TSHRF, 3023-12 #### [facility] CLIA [id number] [address] [place] [address] [place] Hematocrit (Bld) [Volume fraction] 30.0 % Low 36.0-46.0 [facility] Comment on above: Order Comment: Speci men Type: BLOOD SPECIMEN Ordering Facility: [facility] Address: [address] [place] [address] Performed By: #### 2 4323-8, , 2776-, TSHRF, 302-7 #### [facility] CLIA [id number] [address] [place], [place] [address] [place] Hemoglobin (Bld) [Mass/Vol] 10.1 g/dL Low 11.5-15.5 [facility] Comment on above: Order Comment: Speci men Type: BLOOD SPECIMEN Ordering Facility: [facility] Address: [address] [place] [address] Performed By: #### 2 4323-8, , 2776-, TSHRF, 302-7 #### [facility] CLIA [id number] [address] [place] [address] [place] MCH (RBC) [Entitic mass] 27.9 pg Normal 26.0-34.0 [facility] Comment on above: Order Comment: Speci men Type: BLOOD SPECIMEN Ordering Facility: [facility] Address: [address] [place] [address] Performed By: #### 2 4323-8, , 2776-, TSHRF, 302-7 #### [facility] CLIA [id number] [address] [place] [address] [place] MCHC (RBC) [Mass/Vol] 33.7 g/dL Normal 30.5-36.0 [facility] Comment on above: Order Comment: Speci men Type: BLOOD SPECIMEN Ordering Facility: [facility] Address: [address] [place] [address] Performed By: #### 2 4323-8, , 2776-, TSHRF, 302-7 #### [facility] CLIA [id number] [address] [place], [place] [address] [place] MCV (RBC) [Entitic vol] 82.9 fL Normal 80.0-100.0 [facility] Comment on above: Order Comment: Speci men Type: BLOOD SPECIMEN Ordering Facility: [facility] Address: [facility] [place] [id number] Performed By: #### 2 4323-8, 25537-3, 7-1, TSHRF, 3024-7 #### [facility] CLIA [id number] [address] [place] [address] [place] Nucleated RBC (Bld) [#/Vol] 10*3/uL Normal <0.01 [facility] Comment on above: Order Comment: Speci men Type: BLOOD SPECIMEN Ordering Facility: [facility] Address: [address] [place] [address] Performed By: #### 2 4323-8, 28261-3, 7-1, TSHRF, 302-7 #### [facility] CLIA [id number] [address] [place], [place] [address] [place] Platelet mean volume (Bld) [Entitic vol] 9.6 fL Normal 9.0-12.7 [facility] Comment on above: Order Comment: Speci men Type: BLOOD SPECIMEN Ordering Facility: [facility] Address: [address] [place] [address] Performed By: #### 2 4323-8, , 2776-1, TSHRF, 302-7 #### [facility] CLIA [id number] [address] [place], [place] [address] [place] Platelets (Bld) [#/Vol] 314 10*3/uL Normal 150-400 [facility] Comment on above: Order Comment: Speci men Type: BLOOD SPECIMEN Ordering Facility: [facility] Address: [address] [place] [address] Performed By: #### 2 4323-8, 96364-4, 7-1, TSHRF, 302-7 #### [facility] CLIA [id number] [address] [place] [address] [place] RBC (Bld) [#/Vol] 3.62 10*6/uL Low 3.90-5.20 [facility] Comment on above: Order Comment: Speci men Type: BLOOD SPECIMEN Ordering Facility: [facility] Address: [address] [place] [address] Performed By: #### 2 4323-8, 45675-5, 2777-1, TSHRF, 3024-7 #### [facility] CLIA [id number] [address] [place], [place] [address] [facility] WBC (Bld) [#/Vol] 13.52 10*3/uL High 3.70-11.00 [facility] Comment on above: Order Comment: Speci men Type: BLOOD SPECIMEN Ordering Facility: [facility] Address: [address] [place] [address] Performed By: #### 2 4323-8, 18084-0, 2777-1, [facility], 3024-7 #### [facility] CLIA [id number] [address] [place], [place] [address] [facility] CNDSon 11-10-2024 CNDS HNO ID: [id number] Author: ELÍAS NATARAJAN MD Service: General Internal Medicine Author Type: Physician Type: Discharge Summary Filed: 11/10/2024 17:48 Note Text: DISCHARGE SUMMARY PATIENT NAME: Doreen Denise ADMISSION DATE: 11/09/2024 DISCHARGE DATE: 11/10/2024 Attending Physician: Elías Natarajan MD Code Status: Full Code Highest Readmission Risk Score: 13 The 30 day readmissions risk score is derived from an internally validated risk model which evaluates patient level characteristics, utilization history, medication orders and lab results up until the day of discharge. Patients with a score of 39 or above are considered highest risk for readmission. Specific patient level drivers will be listed at the bottom of the summary. Reason for Hospitalization: Principal Problem: Acute pneumonia (POA: Yes) Resolved Problems: * No resolved hospital problems. 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 She denies any fever, chills or night sweats. She does have pain on the right side where she fell for 5 days ago with some shortness of breath but no sputum production. During the ER evaluation she is afebrile, tachycardic with heart rate of 102 bpm and borderline hypoxic with an O2 sat 91% on room air. She had 2 L of oxygen placed which improved her O2 sat to 96%. Labs show an elevated white blood cell count of 13,000, lactate of 2.2. Urinalysis does not appear infected. Troponin normal X2 values, proBNP only slightly elevated to 446. Sodium low at 127. Glucose elevated 316. Due to her recent fall CT of the brain and cervical spine were obtained. Cervical spine CT did not show any acute traumatic subluxation. She does have a nonspecific 5 mm lucent lesion in the C4 vertebral body that wasnot present 12/22/2018. Lytic metastases is in the differential. Thyroid nodules with recommendation for thyroid ultrasound. CT of the brain showing multiple small intra-axial parenchymal lesions in both cerebral hemispheres with surrounding edema. Local mass effect does not result in midline shift or herniation. A few lesions are in the peripheral rim of the relative hyperdensity densities/isointensity to little matter which can be seen with hypercellular neoplasm, blood products or calcification. Scattered hypodensities in the supratentorial white matter are nonspecific but are most compatible with chronic microvascular ischemic changes. Vascular calcifications in the carotid siphons. Chronic left orbital floor fracture. Chest x-ray with enlarged right hilum. Hazy opacity overlying the right lower lung recommended CT for further evaluation. CT of the chest does not show any pulmonary emboli. She does have acute right anterior 4th, 5th and 6th rib fractures. A persistent large right lower lobe mass extending to the hilum with adjacent postobstructiveconsolidation of the right lower lobe with increasing mediastinallymphadenopathy. While in the ER she received 2 L of IV fluids, morphine 4 mg IV X2 doses, Zofran 4 mg IV. She had a DuoNeb and was empirically started on Rocephin and azithromycin however with abnormal CT scan findings broadening of antibiotic coverage for possible empyema was considered and she received vancomycin and Zosyn. MRSA nares screen was obtained and negative for MRSA so vancomycin was discontinued. The ER physician conferred with the on-call neurosurgeon, Dr. Dickson. It was suggested that she be transferred to [facility] in case they have options available for the brain mets that she would not have here. Family and patient are agreeable to this so ER physician may contact with [facility] and was able to speak with on-call fellow from oncology who was agreeable to having the patient transferred there for evaluation of additional treatments. Dr. Rodney hospitalist accepted the transfer however no beds are available at this time so she will be admitted to our hospital in the interim. 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 Neurosurgery team recommended decadron. Patient is on iv antibiotics for pneumonia. Waiting for transfer to [facility]. WBC (k/uL) Date Value 11/10/2024 13.52 (H) RBC (m/uL) Date Value 11/10/2024 3.62 (L) Hemoglobin (g/dL) Date Value 11/10/2024 10.1 (L) Hematocrit (%) Date Value 11/10/2024 30.0 (L) MCV (fL) Date Value 11/10/2024 82.9 MCH (pg) Date Value 11/10/2024 27.9 MCHC (g/dL) Date Value 11/11/19 (more content not included)... [facility] CONSULTon 11-10-2024 CONSULT HNO ID: [id number] Author: MELLY DICKSON MD, PhD Service: Neurosurgery Author Type: Physician Type: Consults Filed: 11/10/2024 09:44 Note Text: Neurosurgery INITIAL CONSULT NOTE SERVICE DATE: 11/10/2024 SERVICE TIME: 9:30AM REASON FOR CONSULT: metastatic cancer to brain REQUESTING PHYSICIAN: ER PRIMARY CARE PHYSICIAN: No primary care provider on file. Subjective Ms. Denise is a 64 year old female who presents for evaluation of gait difficulty and falls. She is admitted for pneumonia. She has known history of metastatic squamous call carcinoma. FUNCTIONAL STATUS: Independent PAST MEDICAL HISTORY Diagnosis Date Chronic bilateral low back pain with right-sided sciatica 03/17/2016 Chronic obstructive pulmonary disease (COPD) (HCC) COPD, mild (HCC) 03/17/2016 DDD (degenerative disc disease), lumbar 03/18/[address] Sorensen's notes Diabetes (HCC) Drug abuse (HCC) 03/23/2016 Tox screen 02/2016 showed high levels of methamphetamines and OARRS was neg for any prescription sources. Essential hypertension 05/01/2015 Radiculopathy, lumbar region 03/18/2016 Smoker 05/01/2015 Started around age 17 up to a PPD. Thoracic radiculopathy 03/18/2016 Uncontrolled type 2 diabetes mellitus without complication, with long-term current use of insulin 03/22/2016 PAST SURGICAL HISTORY Procedure Laterality Date ANESTH, SECTION BACK SURGERY HX MRSA No family history on file. Social History Tobacco Use Smoking status: Every Day Current packs/day: 0.50 Types: Cigarettes Smokeless tobacco: Never Substance Use Topics Alcohol use: No Drug use: No Comment: urine drug screen + amphetamines 03/17/16 oxyCODONE IR (ROXICODONE) 5 mg immediate release tablet, Take 1-2 tablets by mouth every 4 hours as needed for pain for up to 7 days., Disp: 84 tablet, Rfl: 0 Blood-Glucose Meter (TRUE METRIX GLUCOSE METER), Use as directed to check glucose three times daily. E11.65, Disp: 1 each, Rfl: 0 blood sugar diagnostic (TRUE METRIX GLUCOSE TEST STRIP) test strip, Use with blood glucose test three times a day. Insulin Dep? Yes, Disp: 300 each, Rfl: 3 Lancets, Use with blood glucose test three times a day. Insulin Dep? Yes. True Metrix meter., Disp: 300 each, Rfl: 3 Insulin [place], Disposable, (BD ULTRA-FINE NATY PEN NEEDLE) 32 gauge x 5/32, Use one needle for each dose. 2/day. Type 2 DM insulin dependant., Disp: 200 Each, Rfl: 11 insulin NPH-insulin regular 70/30 100 unit/mL (70-30) pen, Inject 24 units before breakfast and 16 units before dinner., Disp: 30 mL, Rfl: 4 metroNIDAZOLE (FLAGYL) 500 mg tablet, 1 tablet as directed. Crush 1-2 tablets and sprinkle over wound twice daily for odor., Disp: 80 tablet, Rfl: 1 hydrocortisone-acetic acid (VOSOL-HC) otic solution, Use 3 Drops in the left ear twice daily., Disp: 5 mL, Rfl: 0 albuterol HFA (PROVENTIL HFA) 90 mcg/actuation inhaler, Inhale 2 Puffs as instructed every 6 hours as needed., Disp: 1 Inhaler, Rfl: 2 lisinopril (ZESTRIL, PRINIVIL) 5 mg tablet, Take 1 tablet by mouth once daily., Disp: 30 tablet, Rfl: 3 albuterol (PROVENTIL) 2.5 mg/0.5 mL nebulizer solution, Use 0.5 mL via nebulizer every 6 hours as needed., Disp: 100 Vial, Rfl: 3 aspirin, enteric coated 81 mg EC tablet, Take 81 mg by mouth once daily., Disp: , Rfl: Current Facility-Administered Medications Medication Dose Route Frequency iv contrast (radiology procedure) INTRAVENOUS DIRECTED PRN azithromycin 500 mg in D5W 250 mL Vial-Bag (ZITHROMAX) 500 mg INTRAVENOUS q 24 HR NaCl 0.9% iv flush bag 20 mL INTRAVENOUS PRN iv contrast (radiology procedure) INTRAVENOUS DIRECTED PRN aluminum-magnesium hydroxide-simethicone 200-200-20 mg/5 mL 30 mL 30 mL ORAL DAILY PRN ondansetron 4 mg tab(s) (ZOFRAN) 4 mg ORAL q 6 H PRN Or ondansetron (PF) 4 mg injection (ZOFRAN) 4 mg INTRAVENOUS q 6 H PRN polyethylene glycol 3350 17 g packet 17 g ORAL DAILY PRN acetaminophen 650 mg tab(s) (TYLENOL) 650 mg ORAL q 6 H PRN dextrose 40 % 15 g 15 g ORAL PRN Or glucagon 1 mg injection 1 mg INTRAMUSCULAR PRN Or dextrose 10% iv bolus 12.5 g INTRAVENOUS PRN albuterol 2.5 mg /3 mL (0.083 %) 2.5 mg (PROVENTIL) 2.5 mg INHALATION q 4 H PRN ipratropium-albuterol 3 mL nebulizer solution (DUONEB) 3 mL INHALATION QID benzonatate 200 mg cap(s) (TESSALON PERLE) 200 mg ORAL TID PRN piperacillin-tazobactam iv piggyback 3.375 g in dextrose (iso-osmotic) 50 mL (ZOSYN) 3.375 g INTRAVENOUS q 6 H morphine 4 mg injection 4 mg INTRAVENOUS q 4 H PRN lactated ringers iv infusion 100 mL/hr INTRAVENOUS CONTINUOUS dexAMETHasone sodium phosphate 4 mg injection (DECADRON) 4 mg INTRAVENOUS q 6 H Allergies As of Date: 11/09/2024 Allergen Noted Reaction CODEINE 02/17/2013 Rash VICODIN [HYDROCODONE-ACETAMINOPHE* Rash Fully Assessed 11/09/2024 COMPLETE REVIEW OF SYSTEMS: Objective PHYSICAL EXAM: Physical Exam Performed: Cachetic, awake, alert, oriented x3. Moves al (more content not included)... [facility] CONSULT PROGon 11-10-2024 CONSULT PROG HNO ID: [id number] Author: DORINDA ESCALANTE RPh Service: Pharmacy Author Type: Pharmacist Type: Consult Progress Note Filed: 11/10/2024 05:12 Note Text: PHARMACY VANCOMYCIN DOSING NOTE Patient Name: Doreen Denise Admission Date: 11/09/2024 Date of Consult: 11/10/2024 Time of Consult: 5:10 AM Indication: Respiratory infection Goal Range: 15-20 mcg/mL RECOMMENDATIONS/PLAN: Pharmacy consulted for vancomycin dosing for Doreen Denise, a 64 year old female. 1.Please note: Vancomycin consult placed on 11/09/24 and dc on 11/10/24 and then restarted. Patient is currently ordered vancomycin 750 mg x 1 in ED , then Vancomycin 1 g q12h. Today is day 2 of therapy. 2. No vancomycin level has been drawn for this dosing regimen. 3. The present dose of vancomycin is the recommended dosage for this patient at this time. Continue therapy as prescribed. 4. The next vancomycin level will be ordered for 11/12 @1000 unless clinically indicated sooner. (Pharmacy will order) We will follow patient renal function, vancomycin levels and doses with you during the course of therapy. Additional recommendations will appear in follow up notes. If you have any questions, please contact pharmacy at [phone]. Age: [age] year old Allergies: ALLERGIES Allergen Reactions Codeine Rash Vicodin [Hydrocodon* Rash Last 3 Encounter Wt Readings: Date: Wt: 11/09/2024 59.4 kg (131 lb) 10/23/2024 59.5 kg (131 lb 2.8 oz) 10/10/2024 60.3 kg (132 lb 15 oz) Last 1 Encounter Ht Readings: Date: Ht: 11/09/2024 167.6 cm (5' 6) CrCl: 105.7 mL/min Temp (24hrs), Av.6 ?C (97.9 ?F), Min:36.6 ?C (97.9 ?F), Max:36.6 ?C (97.9 ?F) - Current Temp: 36.6 ?C (97.9 ?F) Labs BUN (mg/dL) Date Value 11/09/2024 17 10/23/2024 8 09/14/2024 11 Creatinine (mg/dL) Date Value 11/09/2024 0.49 (L) 10/23/2024 0.44 (L) 09/14/2024 0.47 (L) WBC (k/uL) Date Value 11/09/2024 13.62 (H) 09/14/2024 10.47 09/04/2024 12.19 (H) Vancomycin Levels: No results found for: TAM Escalante, [facility] CT ABD/PEL W IVCONon 11-10-[address] ABD/PEL W IVCON * * *Final Report* * * DATE OF EXAM: Nov 10 2024 12:56AM 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 TECHNIQUE: CT of the abdomen and pelvis was performed using standard technique, scanning from just above the dome of the diaphragm to the pubic symphysis. Contrast: IV: 100 ml of Omnipaque 350 : ml of CT Radiation dose: Integrated Dose-length product (DLP) for this visit = 490.34 mGy*cm. CT Dose Reduction Employed: Automated exposure control(AEC) and iterative recon FINDINGS: Difficult to compare due to low resolution noncontrast PET/CT. Lower Thorax: Partially seen dominant right lower lobe mass with associated postobstructive change/atelectasis. See dedicated chest CTA. Liver: Multiple (>10) metastases, largest in the right liver 7.5 cm. Gallbladder/Biliary: Cholelithiasis. Diffuse bile duct dilation. Spleen: Unremarkable. Pancreas: Unremarkable. Adrenals: Bilateral adrenal nodularity, grossly similar to prior. Kidneys: Left renal cyst. No hydronephrosis. Vessels: Atherosclerotic disease. No abdominal aortic aneurysm. GI Tract: No wall thickening or obstruction. Diverticulosis. Pelvis: No pelvic mass. Mesentery/Peritoneum/Retrope ritoneum: No free air or fluid Nodes: Enlarged kale hepatis nodes, up to 2.2 cm short axis, likely metastatic. Bones, soft tissues: -Right anterior rib fractures; see dedicated chest CT. Degenerative changes. -Enhancing lesions in bilateral proximal femur, possibly metastases (3:804, 795). - Nonspecific soft tissue thickening adjacent to the coccyx (2:98). Health And Safety Coordinator (topogram) images: No additional findings. IMPRESSION: 1. No acute internal traumatic injury of the abdomen and pelvis. 2. Extensive metastatic disease. Junior Net Developer: LIZZIE Transcribe Date/Time: Nov 10 2024 2:57A Dictated by : KEILY CASPER MD This examination was interpreted and the report reviewed and electronically signed by: KEILY CASPER MD on Nov 10 2024 3:19AM EST [id number] [facility] ED NOTEon 11-10-2024 ED NOTE HNO ID: [id number] Author: ANGELINA TRUJILLO RN Service: Nursing Author Type: Registered Nurse Type: ED Notes Filed: 11/10/2024 02:30 Note Text: Pt family dressed patient back in her street clothes, pt and family adamantly declining request for patient to don her gown. Pt family asked can she go outside for a while. This RN educated patient and family on how this could produce a dangerous situation and cause the patient harm. Patient and family did not demonstrate understanding. Pt family stated she is getting transferred, why can't she just go outside. Previous education reinforced and patient placed back in bed with bed alarm activated. Patient and family verbalized understanding [facility] ED NOTE HNO ID: [id number] Author: MEREDITH MAK RN Service: ? Author Type: Registered Nurse Type: ED Notes Filed: 11/10/2024 04:23 Note Text: Daughter and daughters boyfriend in car would like updates as they come, [facility] ED NOTE HNO ID: [id number] Author: NICKI MCDANIEL CT Service: ? Author Type: Clinical Legal Specialist Type: ED Notes Filed: 11/10/2024 03:54 Note Text: CONTACTED CC TRANSFER CTR REGARDING ACCEPTANCE AND ROOM FOR PT @ [facility]. It was reported that the PT does not currently have a bed assigned and will not until the AM when discharges are completed. [facility] ED PROV NOTEon 11-10-2024 ED PROV NOTE HNO ID: [id number] Author: TIFFANIE BELLO DO Service: Emergency Medicine Author Type: Physician Type: ED Provider Notes Filed: 11/10/2024 04:59 Note Text: ED CONTINUATION OF CARE NOTE Code Status: Full Code Assumed care from: Dr. Berumen Presentation / Findings / Interventions / Plan / Items to Follow Up: 64-year-old female with history of squamous cell carcinoma left forearm with metastatic disease presenting emergency department with chest pain, frequent falls, generalized weakness. Concern for possible pneumonia versus findings consistent with known metastatic disease on chest x-ray. Given Zosyn and azithromycin. Workup also significant for mild leukocytosis 13.6 and lactic acidosis 2.2. Hyponatremia 127 unchanged from baseline. Soundly hypoxic placed on oxygen via nasal cannula with improvement. Is on [address] brain showing multiple areas of brain metastasis. No midline shift. There is vasogenic edema. She also has new lytic lesions C4 concerning for metastatic disease. Traumatic rib fractures on the right anterior fourth, fifth, sixth ribs. Case was discussed with our trauma team as well as neurosurgery team. Was started on Decadron 4 mg every 6 hours. At this decision made to transfer to [facility] oncology team. Dr. Guerrero excepted patient [facility]. Will schedule Decadron. Does not sound like patient will get a bed anytime soon and therefore will require medical admission. On reevaluation no acute changes. Pain is well-controlled. Had some soft blood pressures but upon recheck blood pressure is uptrending. Discussed with Dr. Saenz with trauma team the patient will need admitted here. Feels the patient can be admitted to medical service with trauma consult if needed. Discussed with Dr. Astorga who agreed admit at this time. ED Course as of 11/10/24 7001 Tiffanie Bello's Documentation Sat November 10, [address] Saenz with trauma surgery. Dari with admission to medicine. Clinical Impressions as of 11/10/24458 Skin cancer Lung mass Brain mass Postobstructive pneumonia Hyponatremia Medical Decision Making SIGNATURE: Tiffanie Joaquin PATIENT NAME: Doreen Denise DATE: November 10, 2024 TIME: 4:17 AM PAGER/CONTACT #: TIFFANIE BELLO 11/10/24 0459 [facility] ED PROV NOTE HNO ID: [id number] Author: MEREDITH BERUMEN MD Service: ? Author Type: Physician Type: ED Provider Notes Filed: 11/10/2024 01:36 Note Text: ED Provider Note Patient Name: Doreen Denise : 1960 SERVICE DATE: 11/09/24 History Patient presents with: Chest Pain: Pt is being treated for cancer. Multiple falls this week. Pt has hit her head during these falls but denies being on any thinners. Daughter states incontinence and that she usually has a cough but has not had one for awhile. Chest pain started a couple days ago. This is a 64-year-old female history of squamous cell carcinoma of the left forearm with metastasis to the right lung who presents with chest pain and frequent falls. Per family patient has had multiple falls this week. She has hit her head intermittently. She is not on any blood thinners. She also complaining of severe right-sided chest pain for the last 2 days. She usually has a cough but this has stopped. She denies shortness of breath, nausea or vomiting, dysuria or hematuria, abdominal pain, back pain, headache, neck pain, leg pain or swelling. Denies any focal numbness or focal weakness but is generally weak. PAST MEDICAL HISTORY Diagnosis Date - Chronic bilateral low back pain with right-sided sciatica 03/17/2016 - Chronic obstructive pulmonary disease (COPD) ([facility]) - COPD, mild (HCC) 03/17/2016 - DDD (degenerative disc disease), lumbar 03/18/[address] Sorensen's notes - Diabetes ([facility]) - Drug abuse ([facility]) 03/23/2016 Tox screen 02/2016 showed high levels of methamphetamines and OARRS was neg for any prescription sources. - Essential hypertension 05/01/2015 - Radiculopathy, lumbar region 03/18/2016 - Smoker 05/01/2015 Started around age 17 up to a PPD. - Thoracic radiculopathy 03/18/2016 - Uncontrolled type 2 diabetes mellitus without complication, with long-term current use of insulin 03/22/2016 PAST SURGICAL HISTORY Procedure Laterality Date - ANESTH, SECTION - BACK SURGERY HX MRSA No family history on file. Social History Tobacco Use - Smoking status: Every Day Current packs/day: 0.50 Types: Cigarettes - Smokeless tobacco: Never Substance and Sexual Activity - Alcohol use: No - Drug use: No Comment: urine drug screen + amphetamines 03/17/16 - Sexual activity: Not on file ALLERGIES Allergen Reactions - Codeine Rash - Vicodin [Hydrocodon* Rash Review of Systems Physical Exam Vitals [11/09/24 1728] BP Pulse Temp Temp src Resp SpO2 Weight Height 117/68 (!) 102 36.6 ?C (97.9 ?F) Oral 18 (!) 93 % 59.4 kg (131 lb) 1.676 m (5' 6) Physical Exam Constitutional: Comments: Thin appearing, appears in pain. HENT: Head: Normocephalic and atraumatic. Mouth/Throat: Mouth: Mucous membranes are moist. Pharynx: Oropharynx is clear. Eyes: Extraocular Movements: Extraocular movements intact. Conjunctiva/sclera: Conjunctivae normal. Pupils: Pupils are equal, round, and reactive to light. Cardiovascular: Rate and Rhythm: Normal rate and regular rhythm. Pulses: Normal pulses. Heart sounds: Normal heart sounds. Pulmonary: Effort: Pulmonary effort is normal. Comments: Diminished right-sided breath sounds at the base, no wheezes, rales or rhonchi. Abdominal: General: Bowel sounds are normal. There is no distension. Palpations: Abdomen is soft. There is no mass. Tenderness: There is no abdominal tenderness. There is no guarding. Musculoskeletal: Cervical back: Normal range of motion. No tenderness. Comments: Tenderness to the right chest wall. No crepitance, no tenderness to the midline spine or lower back. No tenderness to all 4 extremities. Moves all extremities without discomfort. Skin: General: Skin is warm and dry. Neurological: General: No focal deficit present. Mental Status: She is alert. Comments: Oriented to person, place and year but states the month is December. Appears impulsive. Severe Sepsis Identified Date: 11/09/24 (11/09/241853) Severe Sepsis Identified Time: 1852 (11/09/241853) Diagnostic Testing ED Labs Ordered and Reviewed NT PRO BNP - Abnormal; Notable for the following components: Result Value Ref Range NT Pro BNP 446 (*) <125 pg/mL All other components within normal limits COMPLETE BLOOD COUNT AND DIFFERENTIAL - Abnormal; Notable for the following components: WBC 13.62 (*) 3.70 - 11.00 k/uL Hemoglobin 11.2 (*) 11.5 - 15.5 g/dL Hematocrit 33.6 (*) 36.0 - 46.0 % MPV 8.8 (*) 9.0 - 12.7 fL Abs Neut 11.66 (*) 1.45 - 7.50 k/uL Abs Immature Gran 0.12 (*) <0.10 k/uL All other components within normal limits COMPREHENSIVE METABOLIC PANEL - Abnormal; Notable for the following components: Albumin 2.2 (*) 3.2 - 5.0 g/dL Alkaline Phosphatase 161 (*) 45 - 117 U/L Glucose 316 (*) 70 - 100 mg/dL Creatinine 0.49 (*) 0.51 - 0.95 mg/dL Sodium 127 (*) 136 - 145 mmol/L Chloride 95 (*) 98 - 107 mmol/L Anion Gap <3 (*) 5 - 16 mmol/L All (more content not included)... Normal [facility] HISTORY PHYSICALon HISTORY PHYSICAL HNO ID: [id number] Author: ANUEL ASTORGA MD Service: Hospital Medicine Author Type: Physician Type: H&P Filed: 11/10/2024 05:52 Note Text: HISTORY AND PHYSICAL EXAMINATION PATIENT NAME: Doreen Denise SERVICE DATE AND TIME: 11/10/2024 5:33 AM PRIMARY CARE PHYSICIAN: No primary care provider on file. CHIEF COMPLAINT: Right sided chest pain and frequent falls lately. HPI: This is a 64 year old female with a PMH of metastatic squamous cell carcinoma left forearm to the lung who presents with gait difficulties, frequent falls and right sided chest pain today. She denies any fever, chills or night sweats. She does have pain on the right side where she fell for 5 days ago with some shortness of breath but no sputum production. During the ER evaluation she is afebrile, tachycardic with heart rate of 102 bpm and borderline hypoxic with an O2 sat 91% on room air. She had 2 L of oxygen placed which improved her O2 sat to 96%. Labs show an elevated white blood cell count of 13,000, lactate of 2.2. Urinalysis does not appear infected. Troponin normal X2 values, proBNP only slightly elevated to 446. Sodium low at 127. Glucose elevated 316. Due to her recent fall CT of the brain and cervical spine were obtained. Cervical spine CT did not show any acute traumatic subluxation. She does have a nonspecific 5 mm lucent lesion in the C4 vertebral body that was not present 12/22/2018. Lytic metastases is in the differential. Thyroid nodules with recommendation for thyroid ultrasound. CT of the brain showing multiple small intra-axial parenchymal lesions in both cerebral hemispheres with surrounding edema. Local mass effect does not result in midline shift or herniation. A few lesions are in the peripheral rim of the relative hyperdensity densities/isointensity to little matter which can be seen with hypercellular neoplasm, blood products or calcification. Scattered hypodensities in the supratentorial white matter are nonspecific but are most compatible with chronic microvascular ischemic changes. Vascular calcifications in the carotid siphons. Chronic left orbital floor fracture. Chest x-ray with enlarged right hilum. Hazy opacity overlying the right lower lung recommended CT for further evaluation. CT of the chest does not show any pulmonary emboli. She does have acute right anterior 4th, 5th and 6th rib fractures. A persistent large right lower lobe mass extending to the hilum with adjacent postobstructive consolidation of the right lower lobe with increasing mediastinal lymphadenopathy. While in the ER she received 2 L of IV fluids, morphine 4 mg IV X2 doses, Zofran 4 mg IV. She had a DuoNeb and was empirically started on Rocephin and azithromycin however with abnormal CT scan findings broadening of antibiotic coverage for possible empyema was considered and she received vancomycin and Zosyn. MRSA nares screen was obtained and negative for MRSA so vancomycin was discontinued. The ER physician conferred with the on-call neurosurgeon, Dr. Dickson. It was suggested that she be transferred to [facility] in case they have options available for the brain mets that she would not have here. Family and patient are agreeable to this so ER physician may contact with [facility] and was able to speak with on-call fellow from oncology who was agreeable to having the patient transferred there for evaluation of additional treatments. Dr. Rodney hospitalist accepted the transfer however no beds are available at this time so she will be admitted to our hospital in the interim. 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 ASSESSMENT/PLAN: PRINCIPLE PROBLEM: 1. 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 Lung mass/pneumonia/acute respiratory failure with hypoxia - Zosyn and azithromycin - DuoNebs 4 times daily - Albuterol as needed - Tylenol as needed fevers, mild to moderate pain - Tessalon Perles as needed cough - IV fluids until appetite and p.o. intake improved - Decadron may also help right sided rib fracture discomfort -Oxygen to keep O2 sats greater than 92% 3. Tobacco abuse -Patient smokes 1 ppd -Provide smoking cessation couseling - Patient declines nicotine patch 4. DVT ASSESSMENTEncourage early and ongoing ambulation/mobility as appropriate and tolerated by patient Sequential Compression Devices FLUIDS/ELECTROLYTES/DIET: Regular diet LR @ 100cc/hr DEVICES PRESENT ON ADMISSION: (more content not included)... [facility] THERAPY NTon 11-10-2024 THERAPY NT HNO ID: [id number] Author: FRANCIS TAVARES, RESTAURANT K[employer] AND SERVICE MANAGER Service: Respiratory Therapy Author Type: Registered Resp Therapist Type: Therapy (PT/OT/Speech/Resp) Filed: 11/10/2024 01:24 Note Text: Summary: insentive RESPIRATORY THERAPY PROGRESS NOTE SERVICE DATE: 11/10/2024 SERVICE TIME: 19 SIGNATURE: Francis Tavares RRT PATIENT NAME: Doreen Denise DATE: November 10, 2024 TIME: 1:23 AM PAGER/CONTACT #: Kiki wells 750-1000 ml Normal [facility] Bacteria Bld Culton 11-10-19 Bacteria identified Cx Nom (Bld) CULTURE, BLOOD: No growth 5 days Normal [facility] Comment on above: Performed By: #### 2 4323-8, 77234-4, 2777-1, [facility], 3024-7 #### [facility] CLIA [id number] [address] [place] [address] [place] Bacteria identified Cx Nom (Bld) CULTURE, BLOOD: No growth 5 days Normal [facility] Comment on above: Performed By: #### 2 4323-8, 68539-6, 7-1, [facility], 3024-7 #### [facility] CLIA [id number] [address] [place] [address] [place] CBC W Auto Differential pane l (Bld)on 11-09-2024 Basophils (Bld) [#/Vol] 10*3/uL Normal <0.11 [facility] Comment on above: Order Comment: Speci eli Type: BLOOD SPECIMEN Ordering Facility: [facility] Address: [address] [place] [address] Performed By: #### 2 532-0 #### [facility] CLIA [id number] [address] [place] [address] [place] Basophils/100 WBC (Bld) 0.1 % Normal [facility] Comment on above: Order Comment: Speci men Type: BLOOD SPECIMEN Ordering Facility: [facility] Address: [address] [place] [address] Performed By: #### 2 532-0 #### [facility] CLIA [id number] [address] [place] [address] [place] Differential cell count method Nom (Bld) Auto Normal [facility] Comment on above: Order Comment: Speci men Type: BLOOD SPECIMEN Ordering Facility: [facility] Address: [address] [place] [address] Performed By: #### 2 532-0 #### [facility] CLIA [id number] [address] [place] [address] [place] Eosinophils (Bld) [#/Vol] 0.03 10*3/uL Normal <0.46 [facility] Comment on above: Order Comment: Speci men Type: BLOOD SPECIMEN Ordering Facility: [facility] Address: [address] [place] [address] Performed By: #### 2 532-0 #### [facility] CLIA [id number] [address] [place] [address] [place] Eosinophils/100 WBC (Bld) 0.2 % Normal [facility] Comment on above: Order Comment: Speci men Type: BLOOD SPECIMEN Ordering Facility: [facility] Address: [address] [place] [address] Performed By: #### 2 532-0 #### [facility] CLIA [id number] [address] [place] [address] [place] Erythrocyte distribution width (RBC) [Ratio] 14.7 % Normal 11.5-15.0 [facility] Comment on above: Order Comment: Speci men Type: BLOOD SPECIMEN Ordering Facility: [facility] Address: [address] [place] [address] Performed By: #### 2 532-0 #### [facility] CLIA [id number] [address] [place] [address] [place] Hematocrit (Bld) [Volume fraction] 33.6 % Low 36.0-46.0 [facility] Comment on above: Order Comment: Speci men Type: BLOOD SPECIMEN Ordering Facility: [facility] Address: [address] [place] [address] Performed By: #### 2 532-0 #### [facility] CLIA [id number] [address] [place] [address] [place] Hemoglobin (Bld) [Mass/Vol] 11.2 g/dL Low 11.5-15.5 [facility] Comment on above: Order Comment: Speci men Type: BLOOD SPECIMEN Ordering Facility: [facility] Address: [address] [place] [address] Performed By: #### 2 532-0 #### [facility] CLIA [id number] [address] [place] [address] [place] Immature granulocytes (Bld) [#/Vol] 0.12 10*3/uL High <0.10 [facility] Comment on above: Order Comment: Speci men Type: BLOOD SPECIMEN Ordering Facility: [facility] Address: [address] [place] [address] Performed By: #### 2 532-0 #### [facility] CLIA [id number] [address] [place] [address] [place] Immature granulocytes/100 WBC (Bld) 0.9 % Normal [facility] Comment on above: Order Comment: Speci men Type: BLOOD SPECIMEN Ordering Facility: [facility] Address: [address] [place] [address] Performed By: #### 2 532-0 #### [facility] CLIA [id number] [address] [place] [address] [place] Lymphocytes (Bld) [#/Vol] 1.02 10*3/uL Normal 1.00-4.00 [facility] Comment on above: Order Comment: Speci men Type: BLOOD SPECIMEN Ordering Facility: [facility] Address: [address] [place] [address] Performed By: #### 2 532-0 #### [facility] CLIA [id number] [address] [place] [address] [place] Lymphocytes/100 WBC (Bld) 7.5 % Normal [facility] Comment on above: Order Comment: Speci men Type: BLOOD SPECIMEN Ordering Facility: [facility] Address: [address] [place] [address] Performed By: #### 2 532-0 #### [facility] CLIA [id number] [address] [place] [address] [place] MCH (RBC) [Entitic mass] 27.7 pg Normal 26.0-34.0 [facility] Comment on above: Order Comment: Speci men Type: BLOOD SPECIMEN Ordering Facility: [facility] Address: [address] [place] [address] Performed By: #### 2 532-0 #### [facility] CLIA [id number] [address] [place] [address] [place] MCHC (RBC) [Mass/Vol] 33.3 g/dL Normal 30.5-36.0 [facility] Comment on above: Order Comment: Speci men Type: BLOOD SPECIMEN Ordering Facility: [facility] Address: [address] [place] [address] Performed By: #### 2 532-0 #### [facility] CLIA [id number] [address] [place] [address] [place] MCV (RBC) [Entitic vol] 83.0 fL Normal 80.0-100.0 [facility] Comment on above: Order Comment: Speci men Type: BLOOD SPECIMEN Ordering Facility: [facility] Address: [address] [place] [address] Performed By: #### 2 532-0 #### [facility] CLIA [id number] [address] [place] [address] Monocytes (Bld) [#/Vol] 0.77 10*3/uL Normal <0.87 [facility] Comment on above: Order Comment: Speci men Type: BLOOD SPECIMEN Ordering Facility: [facility] Address: [address] [place] [address] Performed By: #### 2 532-0 #### [facility] CLIA [id number] [address] [place] [address] [place] Monocytes/100 WBC (Bld) 5.7 % Normal [facility] Comment on above: Order Comment: Speci men Type: BLOOD SPECIMEN Ordering Facility: [facility] Address: [address] [place] [address] Performed By: #### 2 532-0 #### [facility] CLIA [id number] [address] [place] [address] [place] Neutrophils (Bld) [#/Vol] 11.66 10*3/uL High 1.45-7.50 [facility] Comment on above: Order Comment: Speci men Type: BLOOD SPECIMEN Ordering Facility: [facility] Address: [address] [place] [address] Performed By: #### 2 532-0 #### [facility] CLIA [id number] [address] [place] [address] [place] Neutrophils/100 WBC (Bld) 85.6 % Normal [facility] Comment on above: Order Comment: Speci men Type: BLOOD SPECIMEN Ordering Facility: [facility] Address: [address] [place] [address] Performed By: #### 2 532-0 #### [facility] CLIA [id number] [address] [place] [address] [place] Nucleated RBC (Bld) [#/Vol] 10*3/uL Normal <0.01 [facility] Comment on above: Order Comment: Speci men Type: BLOOD SPECIMEN Ordering Facility: [facility] Address: [address] [place] [address] Performed By: #### 2 532-0 #### [facility] CLIA [id number] [address] [place] [address] [place] Nucleated RBC/100 WBC (Bld) [Ratio] 0.0 /100 WBC Normal [facility] Comment on above: Order Comment: Speci men Type: BLOOD SPECIMEN Ordering Facility: [facility] Address: [address] [place] [address] Performed By: #### 2 532-0 #### [facility] CLIA [id number] [address] [place] [address] [place] Platelet mean volume (Bld) [Entitic vol] 8.8 fL Low 9.0-12.7 [facility] Comment on above: Order Comment: Speci men Type: BLOOD SPECIMEN Ordering Facility: [facility] Address: [address] [place] [address] Performed By: #### 2 532-0 #### [facility] CLIA [id number] [address] [place] [address] [place] Platelets (Bld) [#/Vol] 350 10*3/uL Normal 150-400 [facility] Comment on above: Order Comment: Speci men Type: BLOOD SPECIMEN Ordering Facility: [facility] Address: [address] [place] [address] Performed By: #### 2 532-0 #### [facility] CLIA [id number] [address] [place] [address] [place] RBC (Bld) [#/Vol] 4.05 10*6/uL Normal 3.90-5.20 [facility] Comment on above: Order Comment: Speci men Type: BLOOD SPECIMEN Ordering Facility: [facility] Address: [address] [place] [address] Performed By: #### 2 532-0 #### [facility] CLIA [id number] [address] [place], [place] [address] [place] WBC (Bld) [#/Vol] 13.62 10*3/uL High 3.70-11.00 [facility] Comment on above: Order Comment: Speci men Type: BLOOD SPECIMEN Ordering Facility: [facility] Address: [address] [place] [address] Performed By: #### 2 532-0 #### [facility] CLIA [id number] [address] [place], [place] [address] [place] CNPNon 11-09-2024 CNPN Normal [facility] CONSULT PROGon 11-09-2024 CONSULT PROG HNO ID: [id number] Author: OLESYA CRUZ RPh Service: Pharmacy Author Type: Pharmacist Type: Consult Progress Note Filed: 11/09/2024 21:18 Note Text: PHARMACY VANCOMYCIN DOSING NOTE Patient Name: Doreen Denise Admission Date: 11/09/2024 Date of Consult: 11/09/2024 Time of Consult: 9:15 PM Indication: Respiratory infection Goal Range: 15-20 mcg/mL RECOMMENDATIONS/PLAN: Pharmacy consulted for vancomycin dosing for Doreen Denise, a 64 year old female. 1. Patient is currently ordered Vancomycin 750 mg IV q12h. Today is day 1 of therapy. 2. No vancomycin level has been drawn for this dosing regimen. 3. The present dose of vancomycin is the recommended dosage for this patient at this time. Continue therapy as prescribed. 4. The next vancomycin level has been ordered for 11/11@2029. (Completed) 5. S. aureus nasal PCR swab ordered We will follow patient renal function, vancomycin levels and doses with you during the course of therapy. Additional recommendations will appear in follow up notes. If you have any questions, please contact pharmacy at 1946. Age: [age] year old Allergies: ALLERGIES Allergen Reactions Codeine Rash Vicodin [Hydrocodon* Rash Last 3 Encounter Wt Readings: Date: Wt: 11/09/2024 59.4 kg (131 lb) 10/23/2024 59.5 kg (131 lb 2.8 oz) 10/10/2024 60.3 kg (132 lb 15 oz) Last 1 Encounter Ht Readings: Date: Ht: 11/09/2024 167.6 cm (5' 6) CrCl: 105.7 mL/min Temp (24hrs), Av.6 ?C (97.9 ?F), Min:36.6 ?C (97.9 ?F), Max:36.6 ?C (97.9 ?F) - Current Temp: 36.6 ?C (97.9 ?F) Labs BUN (mg/dL) Date Value 11/09/2024 17 10/23/2024 8 09/14/2024 11 Creatinine (mg/dL) Date Value 11/09/2024 0.49 (L) 10/23/2024 0.44 (L) 09/14/2024 0.47 (L) WBC (k/uL) Date Value 11/09/2024 13.62 (H) 09/14/2024 10.47 09/04/2024 12.19 (H) Vancomycin Levels: No results found for: TAM Cruz, [facility] CT BRAIN WO IVCONon 11-10-19 CT BRAIN WO IVCON * * *Final Report* * * DATE OF EXAM: Nov 09 2024 8:53PM [facility] 0504 - CT BRAIN WO IVCON / PROCEDURE REASON: Head trauma, moderate-severe * * * * Physician Interpretation * * * * EXAMINATION: CT CERVICAL SPINE WO IVCON, CT BRAIN WO IVCON CLINICAL HISTORY: Multiple falls, history of malignancy. Neck trauma, intoxicated or obtunded (Age >= 16y) (accession [id number]), Head trauma, moderate-severe (accession [id number]) TECHNIQUE: Serial axial images without IV contrast were obtained from the vertex to the foramen magnum and through the cervical spine. MQ: CTBWO_3 CT Dose-Length Product (DLP): 1344.16 mGy*cm CT Dose Reduction Employed: Automated exposure control(AEC) and iterative recon COMPARISON: Outside neck CTs 12/22/2018 and PET/CT 02/05/2019 RESULT: Head CT: Scalp and Bones: No acute soft tissue abnormality. No fracture or lytic or blastic lesion. Post-operative change: None. Acute ischemia: No evidence of acute cortical territorial infarct. Hemorrhage: No evidence of acute intracranial hemorrhage. Mass Lesion / Mass Effect: Multiple small intra-axial parenchymal lesions in both cerebral hemispheres with surrounding edema. Local mass effect does not result in midline shift or herniation. A few lesions are with peripheral rim of relative hyperdensity densities/isointensity to little matter which can be seen with hypercellular neoplasm, blood products or calcification. Chronic change: Scattered hypodensities in the supratentorial white matter are nonspecific but are most compatible with chronic microvascular ischemic changes. Vascular calcifications in the carotid siphons . Parenchyma: There is no significant volume loss. Ventricles: The ventricles are within normal limits of size and configuration for age. Skull base: Skull base is intact. Middle ear cavities and mastoid air cells are grossly clear. Paranasal sinuses: The visualized paranasal sinuses are grossly clear. Additional findings: Chronic left orbital floor fracture. Cervical spine: Counting reference: Craniocervical junction. Anatomic Variants: None. Alignment: Mild straightening of usual cervical lordotic curvature. Craniocervical junction: Craniocervical junction is normal. Bones: No acute fracture. A 5 mm lucent lesion in the C4 vertebral body is nonspecific and was not visualized on the prior 12/22/2018 CT. Unchanged chronic C7 anterior wedge compression deformity with mild vertebral body height loss anteriorly. No sclerotic lesion identified. Cervical soft tissues: No prevertebral soft tissue swelling are other gross acute soft tissue abnormality. Degenerative changes: Moderate atlantodental arthrosis. Multilevel disc degeneration with loss of disc height and discal calcification, greatest at C5-C6. Disc osteophyte complexes contribute to estimated mild multilevel canal stenosis. Advanced multilevel facet arthrosis with fused facets bilaterally at C2-C3 very degrees of mild to moderate multilevel foraminal stenosis due to uncovertebral and facet arthrosis. Additional findings: Partially imaged nodule in the left thyroid lobe which is partially calcified and measures up to approximately 2.0 cm within the imaged field. This lesion was present on the prior 12/22/2018 CT. Focal increased FDG uptake in the right thyroid lobe seen on the prior PET/CT of 02/05/2019 by qualitative review as seen on the fused PET/CT images. IMPRESSION: Head CT: Multiple small intra-axial parenchymal lesions in both cerebral hemispheres with surrounding edema. Local mass effect does not result in midline shift or herniation. Working diagnosis is metastatic disease in this patient with history of malignancy. Brain MRI without and with IV contrast recommended to further evaluate. Cervical spine CT: 1. No cervical spine fracture or acute traumatic subluxation. 2. Nonspecific 5 mm lucent lesion in the C4 vertebral body, not visualized on the prior 12/22/2018 CT. Lytic metastasis is in the differential. 3. Multilevel degenerative changes. 4. Thyroid nodules for which thyroid ultrasound is recommended to further evaluate if not recently performed. Junior Net Developer: LIZZIE Transcribe Date/Time: Nov 09 2024 9:40P Dictated by : SHARON WHITE MD This examination was interpreted and the report reviewed and electronically signed by: SHARON WHITE MD on Nov 09 2024 10:01PM EST [id number] [facility] CT CERVICAL SPINE WO IVCONon 05-23-2025 CT CERVICAL SPINE WO IVCON * * *Final Report* * * DATE OF EXAM: Nov 09 2024 8:53PM [facility] 0505 - CT CERVICAL SPINE WO IVCON / PROCEDURE REASON: Neck trauma, intoxicated or obtunded (Age >= 16y) * * * * Physician Interpretation * * * * EXAMINATION: CT CERVICAL SPINE WO IVCON, CT BRAIN WO IVCON CLINICAL HISTORY: Multiple falls, history of malignancy. Neck trauma, intoxicated or obtunded (Age >= 16y) (accession [id number]), Head trauma, moderate-severe (accession [id number]) TECHNIQUE: Serial axial images without IV contrast were obtained from the vertex to the foramen magnum and through the cervical spine. MQ: CTBWO_3 CT Dose-Length Product (DLP): 1344.16 mGy*cm CT Dose Reduction Employed: Automated exposure control(AEC) and iterative recon COMPARISON: Outside neck CTs 12/22/2018 and PET/CT 02/05/2019 RESULT: Head CT: Scalp and Bones: No acute soft tissue abnormality. No fracture or lytic or blastic lesion. Post-operative change: None. Acute ischemia: No evidence of acute cortical territorial infarct. Hemorrhage: No evidence of acute intracranial hemorrhage. Mass Lesion / Mass Effect: Multiple small intra-axial parenchymal lesions in both cerebral hemispheres with surrounding edema. Local mass effect does not result in midline shift or herniation. A few lesions are with peripheral rim of relative hyperdensity densities/isointensity to little matter which can be seen with hypercellular neoplasm, blood products or calcification. Chronic change: Scattered hypodensities in the supratentorial white matter are nonspecific but are most compatible with chronic microvascular ischemic changes. Vascular calcifications in the carotid siphons . Parenchyma: There is no significant volume loss. Ventricles: The ventricles are within normal limits of size and configuration for age. Skull base: Skull base is intact. Middle ear cavities and mastoid air cells are grossly clear. Paranasal sinuses: The visualized paranasal sinuses are grossly clear. Additional findings: Chronic left orbital floor fracture. Cervical spine: Counting reference: Craniocervical junction. Anatomic Variants: None. Alignment: Mild straightening of usual cervical lordotic curvature. Craniocervical junction: Craniocervical junction is normal. Bones: No acute fracture. A 5 mm lucent lesion in the C4 vertebral body is nonspecific and was not visualized on the prior 12/22/2018 CT. Unchanged chronic C7 anterior wedge compression deformity with mild vertebral body height loss anteriorly. No sclerotic lesion identified. Cervical soft tissues: No prevertebral soft tissue swelling are other gross acute soft tissue abnormality. Degenerative changes: Moderate atlantodental arthrosis. Multilevel disc degeneration with loss of disc height and discal calcification, greatest at C5-C6. Disc osteophyte complexes contribute to estimated mild multilevel canal stenosis. Advanced multilevel facet arthrosis with fused facets bilaterally at C2-C3 very degrees of mild to moderate multilevel foraminal stenosis due to uncovertebral and facet arthrosis. Additional findings: Partially imaged nodule in the left thyroid lobe which is partially calcified and measures up to approximately 2.0 cm within the imaged field. This lesion was present on the prior 12/22/2018 CT. Focal increased FDG uptake in the right thyroid lobe seen on the prior PET/CT of 02/05/2019 by qualitative review as seen on the fused PET/CT images. IMPRESSION: Head CT: Multiple small intra-axial parenchymal lesions in both cerebral hemispheres with surrounding edema. Local mass effect does not result in midline shift or herniation. Working diagnosis is metastatic disease in this patient with history of malignancy. Brain MRI without and with IV contrast recommended to further evaluate. Cervical spine CT: 1. No cervical spine fracture or acute traumatic subluxation. 2. Nonspecific 5 mm lucent lesion in the C4 vertebral body, not visualized on the prior 12/22/2018 CT. Lytic metastasis is in the differential. 3. Multilevel degenerative changes. 4. Thyroid nodules for which thyroid ultrasound is recommended to further evaluate if not recently performed. Junior Net Developer: [facility] HOSPITALNick Transcribe Date/Time: Nov 09 2024 9:40P Dictated by : SHARON WHITE MD This examination was interpreted and the report reviewed and electronically signed by: SHARON WHITE MD on Nov 09 2024 10:01PM EST [id number] [facility] CTA CHEST (NON GATED) W IVCO N PEon 11-09-2024 CTA CHEST (NON GATED) W IVCON PE * * *Final Report* * * DATE OF EXAM: Nov 09 2024 8:53PM [facility] 0564 - CTA CHEST (NON GATED) W IVCON PE / PROCEDURE REASON: right chest pain, HX skin cancer with pulm mets, on immunotherapy * * * * Physician Interpretation * * * * EXAMINATION: CTA CHEST PE PROTOCOL CLINICAL HISTORY: right chest pain, HX skin cancer with pulm mets, on immunotherapy Technique: Spiral CT acquisition of the chest from the thoracic inlet to the upper abdomen following IV contrast using PE protocol with coronal and sagittal reformatted images. MIPS or 3D surface rendered/reconstructed images were generated to better assess the vasculature per CT Angiogram protocol. Contrast: 100 mL Omnipaque [address] Radiation dose: Integrated Dose-length product (DLP) for this visit = 1344.16 mGy*cm CT Dose Reduction Employed: Automated exposure control(AEC) and iterative recon Comparison: PET CT September 10, 2024 RESULT: CTA OF THE CHEST: Limitations: None Evaluation for thromboembolic disease: No acute pulmonary artery embolism. Lung parenchyma, pleura, and airways: Persistent large mass in the right lower lobe extending to the hilum and with postobstructive consolidation/collapse of the right lower lobe. The mass appears bigger, but measurements are limited by timing of contrast and surrounding consolidation, it likely measures at least 8 cm. Lower neck, lymph nodes, and mediastinum: Increased mediastinal and right hilar lymphadenopathy, for example an aorticopulmonary lymph node previously measuring 1.6 x 1.2 cm, now measures 2.8 x 2 cm. Stable left thyroid lobe nodule. Heart, pericardium, and thoracic vessels: The heart is within normal size limits. No abnormal pericardial effusion. No thoracic aortic aneurysm. Upper abdomen: Limited evaluation by streak artifacts. Partially visualized adrenal gland nodularity. Bones and soft tissues: Multiple chronic appearing bilateral rib fractures. Acute appearing right anterior fourth, fifth and sixth rib fractures. IMPRESSION: 1. No acute pulmonary artery embolism. 2. Acute right anterior fourth, fifth and sixth rib fractures. 3. Persistent large right lower lobe mass extending to the hilum with adjacent postobstructive consolidation/atelectasis of the right lower lobe. Increasing mediastinal lymphadenopathy. Junior Net Developer: PSC[facility] Transcribe Date/Time: Nov 09 2024 9:52P Dictated by : PRAMOD DE LA ROSA MD This examination was interpreted and the report reviewed and electronically signed by: PRAMOD DE LA ROSA MD on Nov 09 2024 10:06PM EST [id number] [facility] Comprehensive metabolic 2000 panelon 11-09-2024 Albumin [Mass/Vol] 2.2 g/dL Low 3.2-5.0 [facility] Comment on above: Order Comment: Speci men Type: BLOOD SPECIMEN Ordering Facility: [facility] Address: [address] [place] [address] Performed By: #### 2 532-0 #### [facility] CLIA [id number] [address] [place] [address] [place] ALP [Catalytic activity/Vol] 161 U/L High 45-117 [facility] Comment on above: Order Comment: Speci men Type: BLOOD SPECIMEN Ordering Facility: [facility] Address: [address] [place] [address] Performed By: #### 2 532-0 #### [facility] CLIA [id number] [address] [place] [address] [place] ALT [Catalytic activity/Vol] 18 U/L Normal 13-61 [facility] Comment on above: Order Comment: Speci men Type: BLOOD SPECIMEN Ordering Facility: [facility] Address: [address] [place] [address] Result Comment: Resu lts may be falsely depressed after the administration of Sulfasalazine and/or Sulfapyridine. Performed By: #### 2 532-0 #### [facility] CLIA [id number] [address] [place] [address] [place] Anion gap [Moles/Vol] mmol/L Low 5-16 [facility] Comment on above: Order Comment: Speci men Type: BLOOD SPECIMEN Ordering Facility: [facility] Address: [address] [place] [address] Performed By: #### 2 532-0 #### [facility] CLIA [id number] [address] [place] [address] [place] AST [Catalytic activity/Vol] 32 U/L Normal 8-34 [facility] Comment on above: Order Comment: Speci men Type: BLOOD SPECIMEN Ordering Facility: [facility] Address: [address] [place] [address] Result Comment: Resu lts may be falsely depressed after the administration of Sulfasalazine and/or Sulfapyridine. Performed By: #### 2 532-0 #### [facility] CLIA [id number] [address] [place] [address] [place] Bilirubin [Mass/Vol] 0.5 mg/dL Normal 0.2-1.0 [facility] Comment on above: Order Comment: Speci men Type: BLOOD SPECIMEN Ordering Facility: [facility] Address: [address] [place] [address] Performed By: #### 2 532-0 #### [facility] CLIA [id number] [address] [place] [address] [place] Calcium [Mass/Vol] 9.6 mg/dL Normal 8.5-10.5 [facility] Comment on above: Order Comment: Speci men Type: BLOOD SPECIMEN Ordering Facility: [facility] Address: [address] [place] [address] Performed By: #### 2 532-0 #### [facility] CLIA [id number] [address] [place] [address] [place] Chloride [Moles/Vol] 95 mmol/L Low 98-107 [facility] Comment on above: Order Comment: Speci men Type: BLOOD SPECIMEN Ordering Facility: [facility] Address: [address] [place] [address] Performed By: #### 2 532-0 #### [facility] CLIA [id number] [address] [place] [address] [place] CO2 [Moles/Vol] 30 mmol/L Normal 21-32 [facility] Comment on above: Order Comment: Speci men Type: BLOOD SPECIMEN Ordering Facility: [facility] Address: [address] [place] [address] Performed By: #### 2 532-0 #### [facility] CLIA [id number] [address] [place] [address] [place] Creatinine [Mass/Vol] 0.49 mg/dL Low 0.51-0.95 [facility] Comment on above: Order Comment: Speci men Type: BLOOD SPECIMEN Ordering Facility: [facility] Address: [address] [place] [address] Result Comment: Jeanne ents receiving either N-Acetylcysteine (NAC) or Metamizole prior to venipuncture, may have falsely depressed results. Performed By: #### 2 532-0 #### [facility] CLIA [id number] [address] [place] [address] [place] Creatinine and Glomerular filtration rate.predicted panel (S/P/Bld) 104 mL/min/1.73m??? Normal >=60 [facility] Comment on above: Order Comment: Bia benitez Type: BLOOD SPECIMEN Ordering Facility: [facility] Address: [address] [place] [address] Result Comment: Cornell mated Glomerular Filtration Rate (eGFR) is calculated using the 2020 CKD-EPI creatinine equation. This equation utilizes serum creatinine, sex, and age as parameters. The creatinine assay has traceable calibration to isotope dilution-mass spectrometry. Refer to KDIGO guidelines for clinical interpretation. In patients with unstable renal function, e.g. those with acute kidney injury, the eGFR may not accurately reflect actual GFR. Performed By: #### 2 532-0 #### [facility] CLIA [id number] [address] [place] [address] [place] Glucose [Mass/Vol] 316 mg/dL High 70-100 [facility] Comment on above: Order Comment: Bia benitez Type: BLOOD SPECIMEN Ordering Facility: [facility] Address: [address] [place], [place] [id number] Result Comment: The [place] Diabetes Association (ADA) provides guidance for cutoff values for fasting glucose and random glucose. The ADA defines fasting as no caloric intake for at least 8 hours. Fasting plasma glucose results between 100 to 125 mg/dL indicate increased risk for diabetes (prediabetes). Fasting plasma glucose results greater than or equal to 126 mg/dL meet the criteria for diagnosis of diabetes. In the absence of unequivocal hyperglycemia, results should be confirmed by repeat testing. In a patient with classic symptoms of hyperglycemia or hyperglycemic crisis, random plasma glucose results greater than or equal to 200 mg/dL meet the criteria for diagnosis of diabetes. Reference: Standards of Medical Care in Diabetes 2016, [place] Diabetes Association. Diabetes Care. 2016.39(Suppl 1). Results may be falsely elevated after the administration of Sulfapyridine. Results may be falsely depressed after the administration of Sulfasalazine. Performed By: #### 2 532-0 #### [facility] CLIA [id number] [address] [place] [address] [place] Potassium [Moles/Vol] 4.8 mmol/L Normal 3.5-5.1 [facility] Comment on above: Order Comment: Speci men Type: BLOOD SPECIMEN Ordering Facility: [facility] Address: [address] [place] [address] Performed By: #### 2 532-0 #### [facility] CLIA [id number] [address] [place] [address] [place] Protein [Mass/Vol] 7.1 g/dL Normal 6.0-8.5 [facility] Comment on above: Order Comment: Speci men Type: BLOOD SPECIMEN Ordering Facility: [facility] Address: [address] [place] [address] Performed By: #### 2 532-0 #### [facility] CLIA [id number] [address] [place] [address] [place] Sodium [Moles/Vol] 127 mmol/L Low 136-145 [facility] Comment on above: Order Comment: Speci men Type: BLOOD SPECIMEN Ordering Facility: [facility] Address: [address] [place] [address] Performed By: #### 2 532-0 #### [facility] CLIA [id number] [address] [place] [address] [place] Urea nitrogen [Mass/Vol] 17 mg/dL Normal 7-26 [facility] Comment on above: Order Comment: Speci men Type: BLOOD SPECIMEN Ordering Facility: [facility] Address: [address] [place] [address] Performed By: #### 2 532-0 #### [facility] CLIA [id number] [address] [place] [address] [place] ECG COMPLETEon 11-09-2024 ECG COMPLETE Ventricular Rate : 1 01 BPM Atrial Rate : 101 BPM P-R Interval : 152 ms QRS Duration : 86 ms Q-T Interval : 344 ms QTC Calculation(Bazett) : 446 ms Calculated P Altus : 75 degrees Calculated R Altus : 67 degrees Calculated T Altus : 72 degrees Sinus tachycardia Otherwise normal ECG When compared to previous ekg no significant changes seen Confirmed by CHINMAY RAMIREZ MD ([id number]) on 11/10/2024 2:00:35 PM NAME : DOREEN DENISE PID : [id number] : 1960 Gender : Female Race : ORD : [id number] Procedure Date : Nov 09 2024 17:31:28 Edit Date : Nov 10 2024 14:00:38 Diagnosis: Sinus tachycardia Otherwise normal ECG When compared to previous ekg no significant changes seen Confirmed by CHINMAY RAMIREZ MD ([id number]) on 11/10/2024 2:00:35 PM Test Reason : [facility] By : CHINMAY RAMIREZ MD Edited By : CHINMAY RAMIREZ MD Referred By : , Acquired by : [id number], [facility] ED Triage Noteon 11-09-2024 ED Triage Note HNO ID: [id number] Author: MARLENE BRANHAM PA Service: ? Author Type: Physician Yoga Teacher Type: ED Triage Notes Filed: 11/09/2024 17:32 Note Text: Initial Provider Assessment: WILVER REYNOSO 5:31 PM HPI:The patient presents today with a CC of chest pain and recent falls. Onset over the past several days chest pain started yesterday been falling more frequently history of metastatic skin cancer to the lung. History of COPD. No abdominal pain or vomiting at this time. PE: Appears in good health. Vital signs as documented. Skin warm and dry large skin cancer to the left forearm Neck nontender. No JVD. Lungs wheezing and diminished to auscultation bilaterally. Symmetrical expansion. Heart exam notable for regular rhythm, normal sounds and absence of murmurs, rubs or gallops. Abdomen soft nontender without evidence of masses or abdominal aortic enlargement. Extremities nonedematous. Initial vitals/nursing notes have been reviewed upon patient's arrival: BP 117/68 Pulse (!) 102 Resp 18 Ht 167.6 cm (5' 6) Wt 59.4 kg (131 lb) SpO2 (!) 93% BMI 21.14 kg/m? ACTIVE PROBLEM LIST Smoker Essential Hypertension Chronic Bilateral Low Back Pain With Right-Sided Sciatica Copd, Mild (Hcc) Ddd (Degenerative Disc Disease), Lumbar Thoracic Radiculopathy Radiculopathy, Lumbar Region Uncontrolled Type 2 Diabetes Mellitus Without Complication, With Long-Term Current Use of Insulin Drug Abuse (Hcc) Noncompliance Right Lower Lobe Lung Mass Lymphadenopathy Non Hodgkin's Lymphoma (Hcc) Preop Examination Squamous Cell Carcinoma, Arm, Left Normal [facility] Ethanol SerPl-mCncon 025 Ethanol [Mass/Vol] mg/dL Normal <0.010 [facility] Comment on above: Order Comment: Speci men Type: BLOOD SPECIMEN Ordering Facility: [facility] Address: [address] [place] [address] Performed By: #### 2 532-0 #### [facility] CLIA [id number] [address] [place] [address] [place] FENTANYL SCREEN, QUALITATIVE , URINEon 11-09-2024 fentaNYL Screen Ql (U) Negative Normal Negative [facility] Comment on above: Order Comment: Speci men Type: URINE SPECIMEN Ordering Facility: [facility] Address: [address] [place] [address] Result Comment: Cuto ff Threshold at 1 ng/mL. Performed By: #### U ACR #### [facility] CLIA [id number] [address] [place] [address] [place] HIGH SENSITIVITY TROPONIN I (INITIAL)on 11-09-2024 Tropinin I.cardiac panel High sensitivity method <2.5 Normal 0.0-34.0 [facility] Comment on above: Order Comment: Speci men Type: BLOOD SPECIMEN Ordering Facility: [facility] Address: [address] [place] [address] Performed By: #### 2 532-0 #### [facility] CLIA [id number] [address] [place], [place] [id number] [place] HIGH SENSITIVITY TROPONIN I (SECOND)on 05-23-2025 Tropinin I.cardiac panel High sensitivity method <2.5 Normal 0.0-34.0 [facility] Comment on above: Order Comment: Bia benitez Type: BLOOD SPECIMEN Ordering Facility: [facility] Address: [address] [place] [address] Performed By: #### 2 532-0 #### [facility] CLIA [id number] [address] [place], [place] [address] [place] Magnesium SerPl-mCncon 11-09 Magnesium [Mass/Vol] 1.8 mg/dL Normal 1.6-2.6 [facility] Comment on above: Order Comment: Bia benitez Type: BLOOD SPECIMEN Ordering Facility: [facility] Address: [address] [place] [address] Performed By: #### 2 532-0 #### [facility] CLIA [id number] [address] [place], [place] [address] [place] NT-proBNP SerPl-ncon 11-09 Natriuretic peptide.B prohormone N-Terminal [Mass/Vol] 446 pg/mL High <125 [facility] Comment on above: Order Comment: Bia benitez Type: BLOOD SPECIMEN Ordering Facility: [facility] Address: [address] [place] [address] Result Comment: NT-p roBNP results of less than 300 pg/mL likely rules out acute congestive heart failure with 99% predictive value. NOTE: These cutoff points are suggested for ACUTE CHF DIAGNOSIS only Less than 50 years\X09\ Greater than 450 pg/mL 50 - 75 years\X09\\X09\ Greater than 900 pg/mL Greater than 75 years\X09\ Greater than 1800 pg/mL Performed By: #### 2 532-0 #### [facility] CLIA [id number] [address] [place] [address] [place] SEPSIS LACTATE W/ REFLEX (IN ITIAL)on 11-09-2024 Lactate [Moles/Vol] 2.2 mmol/L High 0.4-2.0 [facility] Comment on above: Order Comment: Belli eli Type: BLOOD SPECIMEN Ordering Facility: [facility] Address: [address] [place] [address] Result Comment: CRIT ICAL Performed By: #### 2 532-0 #### [facility] CLIA [id number] [address] [place], [place] [address] [place] SEPSIS LACTATE W/ REFLEX (SE COND)on 11-09-2024 Lactate [Moles/Vol] 2.5 mmol/L High 0.4-2.0 [facility] Comment on above: Order Comment: Speci men Type: URINE SPECIMEN Ordering Facility: [facility] Address: [address] [place] [address] Result Comment: CRIT ICAL Performed By: #### U ACR #### [facility] CLIA [id number] [address] [place] [address] [place] STAPHYLOCOCCUS AUREUS AND MR SA SCREEN, PCR, NASALon 11-09-2024 S. aureus and MRSA panel AARON+probe (Nose) Methicillin-SUSCEPTIBLE Staphylococcus aureus Detected Abnormal Not Detected [facility] Comment on above: Order Comment: Speci men Type: URINE SPECIMEN Ordering Facility: [facility] Address: [address] [place] [address] Performed By: #### U ACR #### [facility] CLIA [id number] [address] [place], [place] [address] [place] TOXICOLOGY SCREEN, ROUTINE U RINEon 11-09-2024 Amphetamines Confirm (U) [Mass/Vol] Negative Normal Negative [facility] Comment on above: Order Comment: Speci men Type: URINE SPECIMEN Ordering Facility: [facility] Address: [address] [place] [address] Result Comment: Cuto ff threshold at 1000 ng/mL. Performed By: #### U ACR #### [facility] CLIA [id number] [address] [place], [place] [address] [place] BARBITURATES, URINE Negative Normal Negative [facility] Comment on above: Order Comment: Speci men Type: URINE SPECIMEN Ordering Facility: [facility] Address: [address] [place] [address] Result Comment: Cuto ff threshold at 200 ng/mL. Performed By: #### U ACR #### [facility] CLIA [id number] [address] [place] [address] [place] BENZODIAZEPINES, UR Negative Normal Negative [facility] Comment on above: Order Comment: Speci men Type: URINE SPECIMEN Ordering Facility: [facility] Address: [address] [place] [address] Result Comment: Cuto ff threshold at 200 ng/mL. Performed By: #### U ACR #### [facility] CLIA [id number] [address] [place] [address] [place] Cannabinoids Screen Ql (U) Negative Normal Negative [facility] Comment on above: Order Comment: Speci men Type: URINE SPECIMEN Ordering Facility: [facility] Address: [address] [place] [address] Result Comment: Cuto ff threshold at 50 ng/mL. Performed By: #### U ACR #### [facility] CLIA [id number] [address] [place] [address] [place] Cocaine Ql (U) Negative Normal Negative [facility] Comment on above: Order Comment: Speci men Type: URINE SPECIMEN Ordering Facility: [facility] Address: [address] [place] [address] Result Comment: Cuto ff threshold at 300 ng/mL. Performed By: #### U ACR #### [facility] CLIA [id number] [address] [place] [address] [place] Opiates Screen Ql (U) Positive Abnormal Negative [facility] Comment on above: Order Comment: Speci men Type: URINE SPECIMEN Ordering Facility: [facility] Address: [address] [place] [address] Result Comment: Cuto ff threshold at 300 ng/mL. Performed By: #### U ACR #### [facility] CLIA [id number] [address] [place] [address] [place] Phencyclidine Ql (U) Negative Normal Negative [facility] Comment on above: Order Comment: Speci men Type: URINE SPECIMEN Ordering Facility: [facility] Address: [address] [place] [address] Result Comment: Cuto ff threshold at 25 ng/mL. Performed By: #### U ACR #### [facility] CLIA [id number] [address] [place] [address] Urinalysis complete panel (U )on 11-09-2024 Bacteria LM.HPF (Urine sed) [#/Area] None Seen Normal None Seen [facility] Comment on above: Order Comment: Speci men Type: URINE SPECIMEN Ordering Facility: [facility] Address: [address] [place] [address] Performed By: #### U ACR #### [facility] CLIA [id number] [address] [place] [address] [place] Bilirubin Ql (U) Negative Normal Negative [facility] Comment on above: Order Comment: Speci men Type: URINE SPECIMEN Ordering Facility: [facility] Address: [address] [place] [address] Performed By: #### U ACR #### [facility] CLIA [id number] [address] [place] [address] [place] Clarity (Unsp spec) Clear Normal Clear [facility] Comment on above: Order Comment: Speci men Type: URINE SPECIMEN Ordering Facility: [facility] Address: [address] [place] [address] Performed By: #### U ACR #### [facility] CLIA [id number] [address] [place] [address] [place] Color (U) Yellow Normal Yellow [facility] Comment on above: Order Comment: Speci men Type: URINE SPECIMEN Ordering Facility: [facility] Address: [address] [place] [address] Performed By: #### U ACR #### [facility] CLIA [id number] [address] [place] [address] Epithelial cells LM.HPF (Urine sed) [#/Area] Few Normal [facility] Comment on above: Order Comment: Speci men Type: URINE SPECIMEN Ordering Facility: [facility] Address: [address] [place] [address] Performed By: #### U ACR #### [facility] CLIA [id number] [address] [place] [address] Glucose Test strip (U) [Mass/Vol] 1+ Abnormal Negative [facility] Comment on above: Order Comment: Speci men Type: URINE SPECIMEN Ordering Facility: [facility] Address: [address] [place] [address] Performed By: #### U ACR #### [facility] CLIA [id number] [address] [place] [address] [place] Hemoglobin Ql (U) Negative Normal Negative [facility] Comment on above: Order Comment: Speci men Type: URINE SPECIMEN Ordering Facility: [facility] Address: [address] [place] [address] Performed By: #### U ACR #### [facility] [place] [id number] [address] [place] [address] [place] Hyaline casts (Urine sed) [#/Area] 4-10 /LPF Abnormal 0 /LPF [facility] Comment on above: Order Comment: Speci men Type: URINE SPECIMEN Ordering Facility: [facility] Address: [address] [place] [address] Performed By: #### U ACR #### [facility] CLIA [id number] [address] [place] [address] Ketones Ql (U) Negative Normal Negative [facility] Comment on above: Order Comment: Speci men Type: URINE SPECIMEN Ordering Facility: [facility] Address: [address] [place] [address] Performed By: #### U ACR #### [facility] CLIA [id number] [address] [place] [address] Leukocyte esterase Test strip Ql (U) Trace Abnormal Negative [facility] Comment on above: Order Comment: Speci men Type: URINE SPECIMEN Ordering Facility: [facility] Address: [address] [place] [address] Performed By: #### U ACR #### [facility] CLIA [id number] [address] [place] [address] [place] Nitrite Ql (U) Negative Normal Negative [facility] Comment on above: Order Comment: Speci men Type: URINE SPECIMEN Ordering Facility: [facility] Address: [address] [place] [address] Performed By: #### U ACR #### [facility] CLIA [id number] [address] [place] [address] [place] pH (U) 6.0 [pH] Normal 5.0-8.0 [facility] Comment on above: Order Comment: Speci men Type: URINE SPECIMEN Ordering Facility: [facility] Address: [address] [place] [address] Performed By: #### U ACR #### [facility] CLIA [id number] [address] [place] [address] [place] Protein (U) [Mass/Vol] Negative Normal Negative [facility] Comment on above: Order Comment: Speci men Type: URINE SPECIMEN Ordering Facility: [facility] Address: [address] [place] [address] Performed By: #### U ACR #### [facility] CLIA [id number] [address] [place] [address] [place] RBC LM.HPF (Urine sed) [#/Area] 3-5 /HPF Abnormal 0-3 /HPF [facility] Comment on above: Order Comment: Speci men Type: URINE SPECIMEN Ordering Facility: [facility] Address: [address] [place] [address] Performed By: #### U ACR #### [facility] CLIA [id number] [address] [place] [address] [place] Specific gravity (U) [Rel density] >1.030 High 1.005-1.03 0 [facility] Comment on above: Order Comment: Speci men Type: URINE SPECIMEN Ordering Facility: [facility] Address: [address] [place] [address] Performed By: #### U ACR #### [facility] CLIA [id number] [address] [place] [address] [place] Urobilinogen Ql (U) 1+ Abnormal Negative [facility] Comment on above: Order Comment: Speci men Type: URINE SPECIMEN Ordering Facility: [facility] Address: [address] [place] [address] Performed By: #### U ACR #### [facility] CLIA [id number] [address] [place] [address] [place] WBC LM.HPF (Urine sed) [#/Area] 0-5 /HPF Normal 0-5 /HPF [facility] Comment on above: Order Comment: Speci men Type: URINE SPECIMEN Ordering Facility: [facility] Address: [address] [place] [address] Performed By: #### U ACR #### [facility] CLIA [id number] [address] [place] [address] [place] XR CHEST 1V FRONTAL PORTon 0 11-09-2024 XR CHEST 1V FRONTAL PORT * * *Final Report* * * DATE OF EXAM: Nov 09 2024 5:48PM [id number] [id number] - XR CHEST 1V FRONTAL PORT / PROCEDURE REASON: Chest pain * * * * Physician Interpretation * * * * EXAMINATION: CHEST RADIOGRAPH (PORTABLE SINGLE VIEW AP) Exam Date/Time: 11/09/2024 5:48 PM CLINICAL HISTORY: Chest pain MQ: XCPR_5 Comparison: 11/27/2014 RESULT: Lines, tubes, and devices: None. Lungs and pleura: No pneumothorax. Hazy opacity overlying the right lung base. Cardiomediastinal silhouette: Enlarged right hilum. Other: . IMPRESSION: Enlarged right hilum. Hazy opacity overlying the right lower lung. Recommend CT for further evaluation to evaluate for a hilar mass and pleural effusion. Junior Net Developer: PSCB Transcribe Date/Time: Nov 09 2024 6:39P Dictated by : BLANK CHEEMA MD This examination was interpreted and the report reviewed and electronically signed by: BLANK CHEEMA MD on Nov 09 2024 6:40PM EST [id number] Normal [facility] CNPNon 11-07-2024 CNPN Normal [facility] CNPNon 11-05-2024 CNPN Normal [facility] CNPNon 11-04-2024 CNPN Normal [facility] CNCNPATEDon 10-23-2024 CNCNPATED Normal [facility] CNOVSPon 10-23-2024 CNOVSP Normal [facility] Comprehensive metabolic 2000 panelon 10-23-2024 Albumin [Mass/Vol] 3 g/dL Low 3.9 - 4.9 g/dL [facility] ALP [Catalytic activity/Vol] 106 U/L 34 - 123 U/L [facility] ALT [Catalytic activity/Vol] 10 U/L 7 - 38 U/L [facility] Anion gap [Moles/Vol] 11 mmol/L 8 - 15 mmol/L [facility] AST [Catalytic activity/Vol] 20 U/L 13 - 35 U/L [facility] Bilirubin [Mass/Vol] 0.4 mg/dL 0.2 - 1 .3 mg/dL [facility] Calcium [Mass/Vol] 9.1 mg/dL 8.5 - 10. 2 mg/dL [facility] Chloride [Moles/Vol] 92 mmol/L Low 98 - 10 7 mmol/L [facility] CO2 [Moles/Vol] 23 mmol/L 22 - 30 mmol/L [facility] Creatinine [Mass/Vol] 0.44 mg/dL Low 0.58 - 0.96 mg/dL [facility] GFR/1.73 sq M.predicted among non-blacks MDRD (S/P/Bld) [Vol rate/Area] 107 mL/min/{1.73_m2} - PINF [facility] Comment on above: Estimated Glomerular Filtration Rate (eGFR) is calculated using the 2020 CKD-EPI creatinine equation. This equation utilizes serum creatinine, sex, and age as parameters. The creatinine assay has traceable calibration to isotope dilution-mass spectrometry. Refer to KDIGO guidelines for clinical interpretation. In patients with unstable renal function, e.g. those with acute kidney injury, the eGFR may not accurately reflect actual GFR. Glucose [Mass/Vol] 362 mg/dL High 74 - 99 mg/dL [facility] Comment on above: The [place] Diabete s Association (ADA) provides guidance for cutoff values for fasting glucose and random glucose. The ADA defines fasting as no caloric intake for at least 8 hours. Fasting plasma glucose results between 100 to 125 mg/dL indicate increased risk for diabetes (prediabetes). Fasting plasma glucose results greater than or equal to 126 mg/dL meet the criteria for diagnosis of diabetes. In the absence of unequivocal hyperglycemia, results should be confirmed by repeat testing. In a patient with classic symptoms of hyperglycemia or hyperglycemic crisis, random plasma glucose results greater than or equal to 200 mg/dL meet the criteria for diagnosis of diabetes. Reference: Standards of Medical Care in Diabetes 2016, [place] Diabetes Association. Diabetes Care. 2016.39(Suppl 1). Interpretation and review of laboratory results Abnormal [facility] Potassium [Moles/Vol] 4.5 mmol/L 3.7 - 5.1 mmol/L [facility] Protein [Mass/Vol] 7.3 g/dL 6.3 - 8.0 g/dL [facility] Sodium [Moles/Vol] 126 mmol/L Low 136 - 144 mmol/L [facility] Urea nitrogen [Mass/Vol] 8 mg/dL 7 - 21 mg/dL [facility] Albumin [Mass/Vol] 3.0 g/dL Low 3.9-4.9 [facility] Comment on above: Order Comment: Speci men Type: BLOOD SPECIMENOrdering Facility: [facility] Address: [address] [place] [address] Performed By: #### 2 4323-8 ####[facility] [id number] [place] [address] [place] ALP [Catalytic activity/Vol] 106 U/L Normal 34-123 [facility] Comment on above: Order Comment: Speci men Type: BLOOD SPECIMENOrdering Facility: [facility] Address: [address] [place] [address] Performed By: #### 2 4323-8 ####[facility] [id number] [place] [address] [place] ALT [Catalytic activity/Vol] 10 U/L Normal 7-38 [facility] Comment on above: Order Comment: Speci men Type: BLOOD SPECIMENOrdering Facility: [facility] Address: [address] [place] [address] Performed By: #### 2 4323-8 ####[facility] [id number] [place] [address] [place] Anion gap [Moles/Vol] 11 mmol/L Normal 8-15 [facility] Comment on above: Order Comment: Speci men Type: BLOOD SPECIMENOrdering Facility: [facility] Address: [address] [place] [address] Performed By: #### 2 4323-8 ####[facility] [id number] [place] [address] [place] AST [Catalytic activity/Vol] 20 U/L Normal 13-35 [facility] Comment on above: Order Comment: Speci men Type: BLOOD SPECIMENOrdering Facility: [facility] Address: [address] [place] [address] Performed By: #### 2 4323-8 ####[facility] [id number] [place] [address] [place] Bilirubin [Mass/Vol] 0.4 mg/dL Normal 0.2-1.3 [facility] Comment on above: Order Comment: Speci men Type: BLOOD SPECIMENOrdering Facility: [facility] Address: [address] [place] [address] Performed By: #### 2 4323-8 ####[facility] [id number] [place] [address] [place] Calcium [Mass/Vol] 9.1 mg/dL Normal 8.5-10.2 [facility] Comment on above: Order Comment: Speci men Type: BLOOD SPECIMENOrdering Facility: [facility] Address: [address] [place] [address] Performed By: #### 2 4323-8 ####[facility] [id number] [place] [address] [place] Chloride [Moles/Vol] 92 mmol/L Low 98-107 [facility] Comment on above: Order Comment: Speci men Type: BLOOD SPECIMENOrdering Facility: [facility] Address: [address] [place] [address] Performed By: #### 2 4323-8 ####[facility] [id number] [place] [address] [place] CO2 [Moles/Vol] 23 mmol/L Normal 22-30 [facility] Comment on above: Order Comment: Speci men Type: BLOOD SPECIMENOrdering Facility: [facility] Address: [address] [place] [address] Performed By: #### 2 4323-8 ####[facility] [id number] [address] STATES OF [facility] Creatinine [Mass/Vol] 0.44 mg/dL Low 0.58-0.96 [facility] Comment on above: Order Comment: Speci men Type: BLOOD SPECIMENOrdering Facility: [facility] Address: [address] [place] [address] Performed By: #### 2 4323-8 ####[facility] [id number] [address] OF [facility] Creatinine and Glomerular filtration rate.predicted panel (S/P/Bld) 107 mL/min/1.73m??? Normal >=60 [facility] Comment on above: Order Comment: Speci men Type: BLOOD SPECIMENOrdering Facility: [facility] Address: [address] [place] [address] Result Comment: Cornell mated Glomerular Filtration Rate (eGFR) is calculated using the 2020 CKD-EPI creatinine equation. This equation utilizes serum creatinine, sex, and age as parameters. The creatinine assay has traceable calibration to isotope dilution-mass spectrometry. Refer to KDIGO guidelines for clinical interpretation. In patients with unstable renal function, e.g. those with acute kidney injury, the eGFR may not accurately reflect actual GFR. Performed By: #### 2 4323-8 ####[facility] [id number] [place] [address] [place] Glucose [Mass/Vol] 362 mg/dL High 74-99 [facility] Comment on above: Order Comment: Speci men Type: BLOOD SPECIMENOrdering Facility: [facility] Address: [address] [place] [address] Result Comment: The [place] Diabetes Association (ADA) provides guidance for cutoff values for fasting glucose and random glucose. The ADA defines fasting as no caloric intake for at least 8 hours. Fasting plasma glucose results between 100 to 125 mg/dL indicate increased risk for diabetes (prediabetes).Fasting plasma glucose results greater than or equal to 126 mg/dL meet the criteria for diagnosis of diabetes. In the absence of unequivocal hyperglycemia, results should be confirmed by repeat testing. In a patient with classic symptoms of hyperglycemia or hyperglycemic crisis, random plasma glucose results greater than or equal to 200 mg/dL meet the criteria for diagnosis of diabetes.Reference: Standards of Medical Care in Diabetes 2016, [place] Diabetes [employer]. Diabetes Care. 2016.39(Suppl 1). Performed By: #### 2 4323-8 ####[facility] [id number] [place] [address] [place] Potassium [Moles/Vol] 4.5 mmol/L Normal 3.7-5.1 [facility] Comment on above: Order Comment: Speci men Type: BLOOD SPECIMENOrdering Facility: [facility] Address: [address] [place] [address] Performed By: #### 2 4323-8 ####[facility] [id number] [place] [address] [place] Protein [Mass/Vol] 7.3 g/dL Normal 6.3-8.0 [facility] Comment on above: Order Comment: Speci men Type: BLOOD SPECIMENOrdering Facility: [facility] Address: [address] [place] [address] Performed By: #### 2 4323-8 ####[facility] [id number] [place] [address] [place] Sodium [Moles/Vol] 126 mmol/L Low 136-144 [facility] Comment on above: Order Comment: Speci men Type: BLOOD SPECIMENOrdering Facility: [facility] Address: [address] [place] [address] Performed By: #### 2 4323-8 ####[facility] [id number] [place] [address] [place] Urea nitrogen [Mass/Vol] 8 mg/dL Normal 7-21 [facility] Comment on above: Order Comment: Speci men Type: BLOOD SPECIMENOrdering Facility: [facility] Address: [address] [place] [address] Performed By: #### 2 4323-8 ####[facility] [id number] [place] [address] [place] CNPNon 10-16-2024 CNPN Normal [facility] CNOVSPon 10-10-2024 CNOVSP Normal [facility] CNPNon 10-05-2024 CNPN Normal [facility] ANES POSTPROC EVALon 025 ANES POSTPROC EVAL Normal [facility] ANES PRE-OPon 10-02-2024 ANES PRE-OP Normal [facility] Bronchoscopyon 10-02-2024 Bronchoscopy Normal [facility] CYTOLOGY NON-GYNon ADEQUACY INTERPRETATION Normal [facility] Comment on above: Order Comment: Speci men Type: SPECIMEN OBTAINED BY ASPIRATIONOrdering Facility: [facility] Address: [address] [place] [address] Result Comment: A: # 1 Atypical cells #2 Positive for malignancyB: #1 Lymphoid sample #2 Non-diagnosticC: #1,2 Lymphoid sampleD: #1 Lymphoid sampleE: #1,2,3 Non-diagnostic #4,5 Lymphoid SampleF: #1,2,3 Lymphoid sampleDr. Kenyon Mendieta // Brendon Nguyen // Kenyon Clemens // Telly Angeles letter in the above intra-procedural assessment refers to a unique site. The specific site is indicated in the final diagnosis portion of the report. Each number in this assessment references a discrete evaluation episode.Intra-procedural assessment performed at [facility], [address] [place] [address]. [place] [address] Performed By: #### C YTONON ####[facility] SYSTEMIA [id number] [address] AP DISCLAIMER Normal [facility] Comment on above: Order Comment: Speci men Type: SPECIMEN OBTAINED BY ASPIRATIONOrdering Facility: [facility] Address: [address] [place] [address] Result Comment: Ofelia christensen Developed Test (LDT) Disclaimer:Performance characteristics of immunohistochemical, immunofluorescent, and chromogenic in-situ hybridization tests have been determined by the performing laboratory within [facility]'s [facility] Pathology and Laboratory Medicine Department ([facility], [facility], [facility], [facility], [facility], [facility], or [facility]) in a manner consistent with CLIA requirements. One or more of these tests may not have been cleared or approved by the FDA. RT-PLM is regulated under CLIA as qualified to perform high-complexity testing. These tests are used for clinical purposes. These should not be regarded as investigational or for research. Positive and negative controls stain appropriately. Performed By: #### C YTONON ####[facility] SYSTEM[facility] [id number] [place] [address] [place] CASE REPORT Normal [facility] Comment on above: Order Comment: Speci men Type: SPECIMEN OBTAINED BY ASPIRATIONOrdering Facility: [facility] Address: [address] [place] [address] Result Comment: [facility] Cytology Report Case: [id number] Provider: Linnette Mojica MD Collected: 10/02/2024 09:39 AMOrdering Location: Admitting Received: 10/02/2024 10:52 AMPathologist: Cierra Mendieta MDSpecimens: A) - Lung, Right Lower Lobe, Transbronchial, Right Lower Lobe TBNA B) - Lymph Node, Transbronchial, 11L C) - Lymph Node, Transbronchial, 4L D) - Lymph Node, Transbronchial, 4R E) - Lymph Node, Transbronchial, Station 7 F) - Lymph Node, Transbronchial, 10R Performed By: #### C YTONON ####[facility] [id number] [address] OF [facility] CLINICAL HISTORY Normal [facility] Comment on above: Order Comment: Speci men Type: SPECIMEN OBTAINED BY ASPIRATIONOrdering Facility: [facility] Address: [address] [place] [address] Result Comment: Pre- op diagnosis:Bronchiolar disease [J98.09]Right perihilar mass; history of squamous cell carcinoma and Non-Hodgkin's Lymphoma Performed By: #### C YTONON ####[facility] LABIA [id number] [address] DIAGNOSIS COMMENT A. The malignant caitlin ls are positive for AE1/3 and negative for p40, TTF-1, and NapsinA. Interpretation of stains is somewhat limited by extensive background necrosis. Please see surgical pathology report [id number] for additional information. Normal [facility] Comment on above: Order Comment: Speci men Type: SPECIMEN OBTAINED BY ASPIRATIONOrdering Facility: [facility] Address: [address] [place] [address] Performed By: #### C YTONON ####[facility] LABIA [id number] [address] FINAL DIAGNOSIS Normal [facility] Comment on above: Order Comment: Speci men Type: SPECIMEN OBTAINED BY ASPIRATIONOrdering Facility: [facility] Address: [address] [place] [address] Result Comment: A - Lung, Right Lower Lobe, Transbronchial, FNA - Right Lower Lobe TBNA Positive for malignant cells. Poorly differentiated carcinoma with extensive necrosis. See comment.B - Lymph Node, Transbronchial, FNA - 11L Negative for malignant cells. Benign lymphoid sample.C - Lymph Node, Transbronchial, FNA - 4L Negative for malignant cells. Benign lymphoid sample.D - Lymph Node, Transbronchial, FNA - 4R Negative for malignant cells. Benign lymphoid sample.E - Lymph Node, Transbronchial, FNA - Station 7 Negative for malignant cells. Benign lymphoid sample.F - Lymph Node, Transbronchial, FNA - 10R Negative for malignant cells. Benign lymphoid sample.The following cell blocks were associated with this case:A1 Cell Block, Alcohol FixedB1 Cell Block, Alcohol FixedC1 Cell Block, Alcohol FixedD1 Cell Block, Alcohol FixedE1 Cell Block, Alcohol FixedF1 Cell Block, Alcohol Fixed at 1501 EDT Performed By: #### C YTONON ####[facility] LAB[facility]IA [id number] [place] [address] [place] FINAL PERFORMING LAB Normal [facility] Comment on above: Order Comment: Speci men Type: SPECIMEN OBTAINED BY ASPIRATIONOrdering Facility: [facility] Address: [address] [place] [address] Result Comment: Tech nical component, director of medical review screening performed at: [facility], [address] [place] [address] CLIA: [id number] interpretation performed at: [facility], [address] [place] [address] CLIA# [id number] Director: Jean Davis MD Performed By: #### C YTONON ####[facility] LAB[facility]IA [id number] [place] [address] [place] GROSS DESCRIPTION Normal [facility] Comment on above: Order Comment: Speci men Type: SPECIMEN OBTAINED BY ASPIRATIONOrdering Facility: [facility] Address: [address] [place] [address] Result Comment: A. L marshall, Right Lower Lobe, Gijjxbummkleru31 cc hazy pink CytoLyt with material. ThinPrep and Cell Block prepared and 4 smears (2 air dried and 2 fixed).B. Lymph Node, Uzwjqnzfurvcyg48 cc clear colorless CytoLyt with scant particles. ThinPrep and Cell Block prepared and 4 smears (2 air dried and 2 fixed).C. Lymph Node, Nwseobuyvejpfv34 cc hazy light pink CytoLyt with material. ThinPrep and Cell Block prepared and 4 smears (2 air dried and 2 fixed).D. Lymph Node, Elwqbtjbsjzyap30 cc hazy red CytoLyt with material. ThinPrep and Cell Block prepared and 2 smears (1 air dried and 1 fixed).E. Lymph Node, Vwztazzjmbvsdw95 cc hazy light pink CytoLyt with material. ThinPrep and Cell Block prepared and 10 smears (5 air dried and 5 fixed).F. Lymph Node, Ifyjfkhshrnjnj56 cc clear light pink CytoLyt with material. ThinPrep and Cell Block prepared and 6 smears (3 air dried and 3 fixed). Performed By: #### C YTONON ####[facility] LABIA [id number] [place] [address] [place] ORDER COMMENT Normal [facility] Comment on above: Order Comment: Speci men Type: SPECIMEN OBTAINED BY ASPIRATIONOrdering Facility: [facility] Address: [address] [place] [address] Result Comment: Pre- op diagnosis:Bronchiolar disease [J98.09] Performed By: #### C YTONON ####[facility] LABIA [id number] [place] [address] [place] ECG COMPLETEon 10-02-2024 ECG COMPLETE Normal [facility] NURSING PROGon 10-02-2024 NURSING PROG Normal [facility] Pathology biopsy report Hira (Tiss)on 10-02-2024 ADDENDUM 1: Normal [facility] Comment on above: Order Comment: Speci men Type: TISSUE SPECIMENOrdering Facility: [facility] Address: [address] [place] [address] Result Comment: Immu nostain for POU2F3 was performed on the biopsy at [facility] and the stain was interpreted at [facility]. POU2F3 is diffusely positive in tumor cells, supportive of small cell carcinoma.Addendum electronically signed by Jace Zaldivar MD on 10/17/2024 at 1410 EDT Performed By: #### 6 6121-5 ####[facility] LABIA [id number] [place] [address] [place] AP DISCLAIMER Normal [facility] Comment on above: Order Comment: Speci men Type: TISSUE SPECIMENOrdering Facility: [facility] Address: [address] [place] [address] Result Comment: Ofelia christensen Developed Test (LDT) Disclaimer:Performance characteristics of immunohistochemical, immunofluorescent, and chromogenic in-situ hybridization tests have been determined by the performing laboratory within [facility]'s [facility] Pathology and Laboratory Medicine Department ([facility], [facility], [facility], [facility], [facility], [facility], or [facility]) in a manner consistent with CLIA requirements. One or more of these tests may not have been cleared or approved by the FDA. RT-PLM is regulated under CLIA as qualified to perform high-complexity testing. These tests are used for clinical purposes. These should not be regarded as investigational or for research. Positive and negative controls stain appropriately. Performed By: #### 6 6121-5 ####[facility] LAB[facility]IA [id number] [place] [address] [place] CASE REPORT Normal [facility] Comment on above: Order Comment: Speci men Type: TISSUE SPECIMENOrdering Facility: [facility] Address: [address] [place] [address] Result Comment: Surg [facility] Pathology Report Case: [id number] Provider: Linnette Mojica MD Collected: 10/02/2024 09:50 AMOrdering Location: Admitting Received: 10/02/2024 04:42 PMPathologist: Jace Zaldivar MDSpecimen: Lung, Right, Biopsy, RLL MASS CORE BIOPSY Performed By: #### 6 6121-5 ####[facility] LAB[facility]IA [id number] [address] [facility] CLINICAL HISTORY Normal [facility] Comment on above: Order Comment: Bia benitez Type: TISSUE SPECIMENOrdering Facility: [facility] Address: [address] [place] [address] Result Comment: Pre- op diagnosis: Bronchiolar disease [J98.09]PET: Metabolic activity in nasopharyngeal/parapharyngeal region, left>right, may represent intramuscular activity and/or residual lymphomatous involvement. 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 Metabolically active right perihilar mass contiguous with right hilar and subcarinal LN, extending into the RLL and postobstructive changes in the right lung. Metabolically active AP window LN, may represent dung metastatic disease related to right lung findings. Metabolically active right hepatic lobe mass Performed By: #### 6 6121-5 ####[facility] LAB[facility]IA [id number] [address] DIAGNOSIS COMMENT Normal [facility] Comment on above: Order Comment: Bai benitez Type: TISSUE SPECIMENOrdering Facility: [facility] Address: [address] [place] [address] Result Comment: The tumor is extensively necrotic. The majority of tumor cells have crush artifact, are poorly preserved and show features suggestive of small cell carcinoma. There is additionally a focal non-small cell carcinoma morphology in a minor subset of tumor cells. By immunohistochemistry, tumor cells are positive for CAM5.2 and negative for TTF-1, INSM1, chromogranin and p40. RB1 immunostain shows loss of nuclear expression in tumor cells. While the tumor in the current biopsy is difficult to classify due to extensive necrosis, the morphologic and immunohistochemical features (including RB1 loss) raise the possibility of a small cell carcinoma or combined small cell carcinoma. Immunostain for POU2F3 will be performed and results will be reported in an addendum.The case was reviewed by Dr. Denice Veloz and Dr. Kimberly Chaney (pulmonary pathology) who agree with the above interpretation. Performed By: #### 6 6121-5 ####[facility] LAB[facility]IA [id number] [address] [facility] FINAL DIAGNOSIS Normal [facility] Comment on above: Order Comment: Speci men Type: TISSUE SPECIMENOrdering Facility: [facility] Address: [address] [place] [address] Result Comment: Lung , right lower lobe, mass, core biopsy:-Extensively necrotic poorly differentiated carcinoma (see comment). at 1516 EDT Performed By: #### 6 6121-5 ####[facility] LAB[facility]IA [id number] [address] STATES OF [facility] FINAL PERFORMING LAB Normal [facility] Comment on above: Order Comment: Speci men Type: TISSUE SPECIMENOrdering Facility: [facility] Address: [address] [place] [address] Result Comment: Diag nostic interpretation performed at: [facility], [address] [place] [address] CLIA# [id number] Director: Jean Davis MD Performed By: #### 6 6121-5 ####[facility]IA [id number] [address] [place] GROSS DESCRIPTION Normal [facility] Comment on above: Order Comment: Speci men Type: TISSUE SPECIMENOrdering Facility: [facility] Address: [address] [place] [address] Result Comment: A. L marshall, Right, BiopsyReceived in formalin are multiple brown-red, soft and friable cylindrical tissue segments aggregating to 2.7 x 0.4 x 0.2 cm Totally submitted in one cassette.DL October 02, 2024 7:12 PM. Gross examination performed at [facility], [address] [place] [address] Performed By: #### 6 6121-5 ####[facility] LAB[facility]IA [id number] [address] [place] CNPNon 10-01-2024 CNPN Normal [facility] CNPNon 09-28-2024 CNPN Normal [facility] CNPNon 09-25-2024 CNPN Normal [facility] NURSING PROGon 09-25-2024 NURSING PROG Normal [facility] CNPNon 09-21-2024 CNPN Normal [facility] CNPNon 09-19-2024 CNPN Normal [facility] CNPNon 09-18-2024 CNPN Normal [facility] ALBUMIN/CREATININE RATIO, UR INEon 09-14-2024 Albumin DL <= 20 mg/L (U) [Mass/Vol] mg/dL Normal 0.0-19.0 [facility] Comment on above: Order Comment: Speci men Type: URINE SPECIMEN [facility] Address: [address] [place], [place] [address] Performed By: #### U ACR #### [facility] CLIA [id number] [address] [place], [place] [address] [place] Albumin/Creatinine (U) [Mass ratio] <6 Normal <30 [facility] Comment on above: Order Comment: Speci men Type: URINE SPECIMEN [facility] Address: [address] [place] [address] Result Comment: Adul t Male and Female Nephrotic Criteria: <30 mg/g is considered normal to mildly increased 30-300 mg/g is considered moderately increased >300 mg/g is considered severely increased KDIGO. (2013). KDIGO 2012 Clinical Practice Guideline for the Evaluation and Management of Chronic Kidney Disease. Official Journal of the International Society of Nephrology, 3(1), 1-150. Performed By: #### U ACR #### [facility] CLIA [id number] [address] [place], [place] [address] [place] Creatinine (U) [Mass/Vol] 47.5 mg/dL Normal 29.0-226.0 [facility] Comment on above: Order Comment: Speci men Type: URINE SPECIMEN [facility] Address: [address] [place] [address] Performed By: #### U ACR #### [facility] CLIA [id number] [address] [place] [address] [place] C peptide SerPl-mCncon 09-14 C peptide [Mass/Vol] 3.1 ng/mL Normal 1.1-4.4 [facility] Comment on above: Order Comment: Speci men Type: BLOOD SPECIMEN [facility] Address: [address] [place] [address] Performed By: #### 1 986-9 #### [facility] CLIA [id number] [address] [place] [address] [place] [address] [place] CBC W Auto Differential pane l (Bld)on 09-14-2024 Basophils (Bld) [#/Vol] 10*3/uL Normal <0.11 [facility] Comment on above: Order Comment: Speci men Type: BLOOD SPECIMEN [facility] Address: [address] [place] [address] Performed By: #### 5 7021-8 #### [facility] CLIA [id number] [address] [place] [address] [place] Basophils/100 WBC (Bld) 0.1 % Normal [facility] Comment on above: Order Comment: Speci men Type: BLOOD SPECIMEN [facility] Address: [address] [place] [address] Performed By: #### 5 7021-8 #### [facility] CLIA [id number] [address] [place] [address] [place] Differential cell count method Nom (Bld) Auto Normal [facility] Comment on above: Order Comment: Speci men Type: BLOOD SPECIMEN [facility] Address: [address] [place] [address] Performed By: #### 5 7021-8 #### [facility] CLIA [id number] [address] [place] [address] [place] Eosinophils (Bld) [#/Vol] 0.28 10*3/uL Normal <0.46 [facility] Comment on above: Order Comment: Speci men Type: BLOOD SPECIMEN [facility] Address: [address] [place] [address] Performed By: #### 5 7021-8 #### [facility] CLIA [id number] [address] [place] [address] [place] Eosinophils/100 WBC (Bld) 2.7 % Normal [facility] Comment on above: Order Comment: Speci men Type: BLOOD SPECIMEN [facility] Address: [address] [place] [address] Performed By: #### 5 7021-8 #### [facility] CLIA [id number] [address] [place] [address] [place] Erythrocyte distribution width (RBC) [Ratio] 13.8 % Normal 11.5-15.0 [facility] Comment on above: Order Comment: Speci men Type: BLOOD SPECIMEN [facility] Address: [address] [place] [address] Performed By: #### 5 7021-8 #### [facility] CLIA [id number] [address] [place] [address] [place] Hematocrit (Bld) [Volume fraction] 33.6 % Low 36.0-46.0 [facility] Comment on above: Order Comment: Speci men Type: BLOOD SPECIMEN [facility] Address: [address] [place] [address] Performed By: #### 5 7021-8 #### [facility] CLIA [id number] [address] [place] [address] [place] Hemoglobin (Bld) [Mass/Vol] 11.1 g/dL Low 11.5-15.5 [facility] Comment on above: Order Comment: Speci men Type: BLOOD SPECIMEN [facility] Address: [address] [place] [address] Performed By: #### 5 7021-8 #### [facility] CLIA [id number] [address] [place] [address] [place] Immature granulocytes (Bld) [#/Vol] 0.05 10*3/uL Normal <0.10 [facility] Comment on above: Order Comment: Speci men Type: BLOOD SPECIMEN [facility] Address: [address] [place] [address] Performed By: #### 5 7021-8 #### [facility] CLIA [id number] [address] [place] [address] [place] Immature granulocytes/100 WBC (Bld) 0.5 % Normal [facility] Comment on above: Order Comment: Speci men Type: BLOOD SPECIMEN [facility] Address: [address] [place] [address] Performed By: #### 5 7021-8 #### [facility] CLIA [id number] [address] [place] [address] [place] Lymphocytes (Bld) [#/Vol] 1.09 10*3/uL Normal 1.00-4.00 [facility] Comment on above: Order Comment: Speci men Type: BLOOD SPECIMEN [facility] Address: [address] [place] [address] Performed By: #### 5 7021-8 #### [facility] CLIA [id number] [address] [place] [address] [place] Lymphocytes/100 WBC (Bld) 10.4 % Normal [facility] Comment on above: Order Comment: Speci men Type: BLOOD SPECIMEN [facility] Address: [address] [place] [address] Performed By: #### 5 7021-8 #### [facility] CLIA [id number] [address] [place] [address] [place] MCH (RBC) [Entitic mass] 28.2 pg Normal 26.0-34.0 [facility] Comment on above: Order Comment: Speci men Type: BLOOD SPECIMEN [facility] Address: [address] [place] [address] Performed By: #### 5 7021-8 #### [facility] CLIA [id number] [address] [place] [address] [place] MCHC (RBC) [Mass/Vol] 33.0 g/dL Normal 30.5-36.0 [facility] Comment on above: Order Comment: Speci men Type: BLOOD SPECIMEN [facility] Address: [address] [place] [address] Performed By: #### 5 7021-8 #### [facility] CLIA [id number] [address] [place] [address] [place] MCV (RBC) [Entitic vol] 85.3 fL Normal 80.0-100.0 [facility] Comment on above: Order Comment: Speci men Type: BLOOD SPECIMEN [facility] Address: [address] [place] [address] Performed By: #### 5 7021-8 #### [facility] CLIA [id number] [address] [place] [address] [place] Monocytes (Bld) [#/Vol] 0.63 10*3/uL Normal <0.87 [facility] Comment on above: Order Comment: Speci men Type: BLOOD SPECIMEN [facility]: [facility] Address: [address] [place] [address] Performed By: #### 5 7021-8 #### [facility] CLIA [id number] [address] [place] [address] [place] Monocytes/100 WBC (Bld) 6.0 % Normal [facility] Comment on above: Order Comment: Speci men Type: BLOOD SPECIMEN [facility]ing Facility: [facility] Address: [address] [place] [address] Performed By: #### 5 7021-8 #### [facility] CLIA [id number] [address] [place] [address] [place] Neutrophils (Bld) [#/Vol] 8.41 10*3/uL High 1.45-7.50 [facility] Comment on above: Order Comment: Speci men Type: BLOOD SPECIMEN Ordering Facility: [facility] Address: [address] [place] [address] Performed By: #### 5 7021-8 #### [facility] CLIA [id number] [address] [place] [address] [place] Neutrophils/100 WBC (Bld) 80.3 % Normal [facility] Comment on above: Order Comment: Speci men Type: BLOOD SPECIMEN Ordering Facility: [facility] Address: [address] [place] [address] Performed By: #### 5 7021-8 #### [facility] CLIA [id number] [address] [place] [address] [place] Nucleated RBC (Bld) [#/Vol] 10*3/uL Normal <0.01 [facility] Comment on above: Order Comment: Speci men Type: BLOOD SPECIMEN [facility]ing Facility: [facility] Address: [address] [place] [address] Performed By: #### 5 7021-8 #### [facility] CLIA [id number] [address] [place] [address] [place] Nucleated RBC/100 WBC (Bld) [Ratio] 0.0 /100 WBC Normal [facility] Comment on above: Order Comment: Speci men Type: BLOOD SPECIMEN [facility]ing [facility]: [facility] Address: [address] [place] [address] Performed By: #### 5 7021-8 #### [facility] CLIA [id number] [address] [place] [address] [place] Platelet mean volume (Bld) [Entitic vol] 9.4 fL Normal 9.0-12.7 [facility] Comment on above: Order Comment: Speci men Type: BLOOD SPECIMEN Ordering Facility: [facility] Address: [address] [place] [address] Performed By: #### 5 7021-8 #### [facility] CLIA [id number] [address] [place] [address] [place] Platelets (Bld) [#/Vol] 316 10*3/uL Normal 150-400 [facility] Comment on above: Order Comment: Speci men Type: BLOOD SPECIMEN Ordering Facility: [facility] Address: [address] [place] [address] Performed By: #### 5 7021-8 #### [facility] CLIA [id number] [address] [place] [address] [place] RBC (Bld) [#/Vol] 3.94 10*6/uL Normal 3.90-5.20 [facility] Comment on above: Order Comment: Speci men Type: BLOOD SPECIMEN Ordering Facility: [facility] Address: [address] [place] [address] Performed By: #### 5 7021-8 #### [facility] CLIA [id number] [address] [place] [address] [place] [facility] WBC (Bld) [#/Vol] 10.47 10*3/uL Normal 3.70-11.00 [facility] Comment on above: Order Comment: Speci men Type: BLOOD SPECIMEN Ordering Facility: [facility] Address: [address] [place], [place] [address] Performed By: #### 5 7021-8 #### [facility] CLIA [id number] [address] [place] [address] [place] CNPNon 09-14-2024 CNPN Normal [facility] metabolic 2000 panelon 09-14-2024 Albumin [Mass/Vol] 2.7 g/dL Low 3.2-5.0 [facility] Comment on above: Order Comment: Speci men Type: BLOOD SPECIMEN Ordering Facility: [facility] Address: [address] [place], [place] [address] Performed By: #### 2 4323-8, 11287-8, 2777-1, TSHRF, 3024-7 #### [facility] CLIA [id number] [address] [place] [address] [place] ALP [Catalytic activity/Vol] 85 U/L Normal 45-117 [facility] Comment on above: Order Comment: Speci men Type: BLOOD SPECIMEN Ordering Facility: [facility] Address: [address] [place] [address] Performed By: #### 2 3-8, , 2776-06, TSHRF, 3023-7 #### [facility] CLIA [id number] [address] [place] [address] [place] ALT [Catalytic activity/Vol] 7 U/L Low 13-61 [facility] Comment on above: Order Comment: Speci men Type: BLOOD SPECIMEN Ordering Facility: [facility] Address: [address] [place] [address] Result Comment: Resu lts may be falsely depressed after the administration of Sulfasalazine and/or Sulfapyridine. Performed By: #### 2 4322-8, , 2776-06, TSHRF, 3023-7 #### [facility] CLIA [id number] [address] [place] [address] [place] Anion gap [Moles/Vol] 8 mmol/L Normal 5-16 [facility] Comment on above: Order Comment: Speci eli Type: BLOOD SPECIMEN Ordering Facility: [facility] Address: [address] [place] [address] Performed By: #### 2 4322-8, , 2776-06, TSHRF, 3023-7 #### [facility] CLIA [id number] [address] [place] [address] [place] AST [Catalytic activity/Vol] 18 U/L Normal 8-34 [facility] Comment on above: Order Comment: Speci eli Type: BLOOD SPECIMEN Ordering Facility: [facility] Address: [address] [place] [address] Result Comment: Resu lts may be falsely depressed after the administration of Sulfasalazine and/or Sulfapyridine. Performed By: #### 2 3-8, , 2776-, TSHRF, 3023-7 #### [facility] CLIA [id number] [address] [place], [place] [address] [place] Bilirubin [Mass/Vol] 0.5 mg/dL Normal 0.2-1.0 [facility] Comment on above: Order Comment: Speci men Type: BLOOD SPECIMEN Ordering Facility: [facility] Address: [address] [place] [address] [place] [address] Performed By: #### 2 4323-8, 10445-9, 2777-1, TSHRF, 3024-7 #### [facility] CLIA [id number] [address] [place] [address] [place] Calcium [Mass/Vol] 9.4 mg/dL Normal 8.5-10.5 [facility] Comment on above: Order Comment: Speci men Type: BLOOD SPECIMEN Ordering Facility: [facility] Address: [address] [place] [address] [place] [address] Performed By: #### 2 4323-8, 58920-3, 7-1, TSHRF, 302-7 #### [facility] CLIA [id number] [address] [place] [address] [place] Chloride [Moles/Vol] 94 mmol/L Low 98-107 [facility] Comment on above: Order Comment: Speci men Type: BLOOD SPECIMEN Ordering Facility: [facility] Address: [address] [place] [address] Performed By: #### 2 4323-8, 70859-4, 2776-1, TSHRF, 302-7 #### [facility] CLIA [id number] [address] [place], [place] [address] [place] CO2 [Moles/Vol] 31 mmol/L Normal 21-32 [facility] Comment on above: Order Comment: Speci men Type: BLOOD SPECIMEN Ordering Facility: [facility] Address: [address] [place] [address] Performed By: #### 2 4323-8, 11549-8, 2777-1, TSHRF, 3024-7 #### [facility] CLIA [id number] [address] [place] [address] [place] Creatinine [Mass/Vol] 0.47 mg/dL Low 0.51-0.95 [facility] Comment on above: Order Comment: Bia benitez Type: BLOOD SPECIMEN Ordering Facility: [facility] Address: [address] [id number] Result Comment: Jeanne ents receiving either N-Acetylcysteine (NAC) or Metamizole prior to venipuncture, may have falsely depressed results. Performed By: #### 2 4323-8, 92924-2, 2777-1, [facility], 3024-7 #### [facility] CLIA [id number] [address] [place] [address] [place] Creatinine and Glomerular filtration rate.predicted panel (S/P/Bld) 105 mL/min/1.73m??? Normal >=60 [facility] Comment on above: Order Comment: Bia benitez Type: BLOOD SPECIMEN Ordering Facility: [facility] Address: [address] [place] [address] Result Comment: Cornell mated Glomerular Filtration Rate (eGFR) is calculated using the 2020 CKD-EPI creatinine equation. This equation utilizes serum creatinine, sex, and age as parameters. The creatinine assay has traceable calibration to isotope dilution-mass spectrometry. Refer to KDIGO guidelines for clinical interpretation. In patients with unstable renal function, e.g. those with acute kidney injury, the eGFR may not accurately reflect actual GFR. Performed By: #### 2 4323-8, 35311-6, 2777-1, [facility], 3024-7 #### [facility] CLIA [id number] [address] [place], [place] [address] [place] Glucose [Mass/Vol] 263 mg/dL High 70-100 [facility] Comment on above: Order Comment: Bia benitez Type: BLOOD SPECIMEN Ordering Facility: [facility] Address: [address] [id number] Result Comment: The [place] Diabetes Association (ADA) provides guidance for cutoff values for fasting glucose and random glucose. The ADA defines fasting as no caloric intake for at least 8 hours. Fasting plasma glucose results between 100 to 125 mg/dL indicate increased risk for diabetes (prediabetes). Fasting plasma glucose results greater than or equal to 126 mg/dL meet the criteria for diagnosis of diabetes. In the absence of unequivocal hyperglycemia, results should be confirmed by repeat testing. In a patient with classic symptoms of hyperglycemia or hyperglycemic crisis, random plasma glucose results greater than or equal to 200 mg/dL meet the criteria for diagnosis of diabetes. Reference: Standards of Medical Care in Diabetes 2016, [place] Diabetes Association. Diabetes Care. 2016.39(Suppl 1). Results may be falsely elevated after the administration of Sulfapyridine. Results may be falsely depressed after the administration of Sulfasalazine. Performed By: #### 2 4323-8, 38162-0, 2776-1, TSH, 302-7 #### [facility] CLIA [id number] [address] [place], [place] [address] [place] Potassium [Moles/Vol] 4.2 mmol/L Normal 3.5-5.1 [facility] Comment on above: Order Comment: Bia benitez Type: BLOOD SPECIMEN Ordering Facility: [facility] Address: [address] [place] [address] Performed By: #### 2 4323-8, , 2776-06, [facility], 3023-7 #### [facility] CLIA [id number] [address] [place] [address] [place] Protein [Mass/Vol] 7.3 g/dL Normal 6.0-8.5 [facility] Comment on above: Order Comment: Bia benitez Type: BLOOD SPECIMEN Ordering Facility: [facility] Address: [address] [place] [address] Performed By: #### 2 4323-8, 16742-2, 2776-06, TSH, 3023-7 #### [facility] CLIA [id number] [address] [place], [place] [address] [place] Sodium [Moles/Vol] 133 mmol/L Low 136-145 [facility] Comment on above: Order Comment: Bia benitez Type: BLOOD SPECIMEN Ordering Facility: [facility] Address: [address] [place] [address] Performed By: #### 2 4323-8, 07328-6, 2776-, TSHRF, 302-7 #### [facility] CLIA [id number] [address] [id number] [place] Urea nitrogen [Mass/Vol] 11 mg/dL Normal - [facility] Comment on above: Order Comment: Speci men Type: BLOOD SPECIMEN Ordering Facility: [facility] Address: [address] [place] [address] Performed By: #### 2 4323-8, 22181-6, 2777-1, TSHRF, 3024-7 #### [facility] CLIA [id number] [address] [id number] [place] GAD65 Ab Ser-aCncon 09-15-19 25 Glutamate decarboxylase 65 Ab Qn (S) <5.0 Normal <=5.0 [facility] Comment on above: Order Comment: Bia benitez Type: BLOOD SPECIMEN Ordering Facility: [facility] Address: [address] [place] [address] Result Comment: Anti -glutamic acid decarboxylase antibody (GAD65) test usually in conjunction with another test such as IA-2 antibody is used as an aid in establishing the autoimmune nature of previously-diagnosed type I diabetes mellitus or in predicting of progression to type I diabetes mellitus in patients with certain autoimmune diseases including autoimmune gastritis among others. It is also used as an aid in diagnosis of stiff person syndrome and certain autoimmune nervous system diseases. Clinical correlation is required. Performed By: #### 1 3926-1 #### [facility] CLIA [id number] [address] [place] [address] [place] Glutamate decarboxylase 65 A b Qn (S)on 09-14-2024 GLUTAMIC ACID DECARBOXYLAS AB QUALITATIVE Negative Normal Negative [facility] Comment on above: Order Comment: Bia benitez Type: BLOOD SPECIMEN Ordering Facility: [facility] Address: [address] [place] [address] Performed By: #### 1 3926-1 #### [facility] CLIA [id number] [address] [place] [address] [place] LDH SerPl-cCncon 09-14-2024 LDH [Catalytic activity/Vol] 606 U/L High 84-246 [facility] Comment on above: Order Comment: Speci men Type: BLOOD SPECIMEN Ordering Facility: [facility] Address: [address] [place] [address] Performed By: #### 2 532-0 #### [facility] CLIA [id number] [address] [place], [place] [address] [place] Magnesium SerPl-mCncon 09-14 Magnesium [Mass/Vol] 1.7 mg/dL Normal 1.6-2.6 [facility] Comment on above: Order Comment: Speci men Type: BLOOD SPECIMEN Ordering Facility: [facility] Address: [address] [place] [address] Performed By: #### 2 4323-8, 87577-8, 2776-06, TSHRF, 3024-7 #### [facility] CLIA [id number] [address] [place], [place] [address] [place] Phosphate SerPl-mCncon 09-14 Phosphate [Mass/Vol] 3.9 mg/dL Normal 2.5-4.9 [facility] Comment on above: Order Comment: Belli eli Type: BLOOD SPECIMEN Ordering Facility: [facility] Address: [address] [place] [address] Result Comment: Elev ated m-protein (paraprotein) levels in the serum may be exhibited in patients with monoclonal gammopathies, causing falsely elevated inorganic phosphorus results. Performed By: #### 2 4323-8, 48585-1, 2776-06, TSHRF, 3024-7 #### [facility] CLIA [id number] [address] [place], [place] [address] [place] T4 Free SerPl-mCncon 025 Free T4 [Mass/Vol] 1.2 ng/dL Normal 0.8-1.5 [facility] Comment on above: Order Comment: Speci men Type: BLOOD SPECIMEN Ordering Facility: [facility] Address: [address] [place] [address] Performed By: #### 2 4323-8, 51061-1, 2776-1, TSHRF, 3024-7 #### [facility] CLIA [id number] [address] [place] [address] [place] TSH W/REFLEX FT4on TSH Qn 0.326 m[IU]/L Low 0.358-3.74 0 [facility] Comment on above: Order Comment: Speci men Type: BLOOD SPECIMEN Ordering Facility: [facility] Address: [address] [place] [address] Result Comment: 3rd generation ultra sensitive TSH. Performed By: #### 2 4323-8, 83630-8, 2777-1, TSHRF, 3024-7 #### [facility] CLIA [id number] [address] [place] [address] [place] CNOVSPon 09-12-2024 CNOVSP Normal [facility] CNPNon 09-12-2024 CNPN Normal [facility] GLUCOSE, BLOOD (POC)on 09-10 Glucose [Mass/Vol] 82 mg/dL 74 - 99 mg/dL [facility] Comment on above: Location:[facility], [address] [place] [address], [facility] The Accu-Chek Inform II glucose meter has not been approved for testing on patients receiving intensive medical intervention or therapy and results from this point of care glucose test should not be used for patient management decisions in these cases. Inaccurate results may also occur from other interfering factors, such as N-acetylcysteine (blood concentrations of greater than 5mg/dL), galactose, extremes of hematocrit (<10 or >65), or high doses of ascorbic acid (vitamin C) greater than 3mg/dL. Consider alternate testing mechanisms (e.g. core lab, blood gas instrument) in the above situations. [facility] NM PET/CT WHOLE BODY INITon 09-10-2024 NM PET/CT WHOLE BODY INIT Normal [facility] Absolute neutrophil countOrd ered By: Isabel Pelaez on 09-05-2024 Neutrophils (Bld) [#/Vol] 9.3 10*3/uL High 2.0-7.7 [facility] Amphetamines Screen method > 1000 ng/mL Ql (U)Ordered By: Isabel Pelaez on 09-05-2024 Amphetamines Ql (U) Negative <1000 ng/mL [facility] Urine Barbiturates Screen Negative < 200 ng/mL [facility] Anion gap in Serum or Plasma Ordered By: Isabel Pelaez on 09-05-2024 Anion gap [Moles/Vol] 8 mmol/L 5-15 [facility] BUN/creatinine ratioOrdered By: Isabel Pelaez on 09-05-2024 Urea nitrogen/Creatinine [Mass ratio] 19.7 mg/mg 10-20 [facility] Basophil percentageOrdered B y: Isabel Pelaez on 09-05-2024 Basophils/100 WBC (Bld) 0.3 % 0-1 [facility] Bedside Glucoseon 09-05-2024 FINGERSTICK GLU 204 mg/dL High 74-106 [facility] Comment on above: Result Comment: ANNEMARIE GEMENT OF PATIENT CARE PER NURSING PROTOCOL Performed By: #### L 501.080 #### [facility] [address] [place], [address] FINGERSTICK GLU 287 mg/dL High 74-106 [facility] Comment on above: Result Comment: ANNEMARIE GEMENT OF PATIENT CARE PER NURSING PROTOCOL Performed By: #### L 9000.0810 #### [facility] [address] [place], [address] Bilirubin, totalOrdered By: Isabel Pelaez on 09-05-2024 Bilirubin [Mass/Vol] 0.40 mg/dL 0.00-1.30 [facility] CBC W/Diff, Automatedon 08-18 Absolute Lymph 1.37 X10 3/uL Normal 0.83-4.51 [facility] Comment on above: Performed By: #### L 100.0100, L500.4050, L501.9985 #### [facility] [address] [place], [address] Absolute Neut 9.3 X10 3/uL High 2.0-7.7 [facility] Comment on above: Performed By: #### L 100.0100, L500.4050, L501.9985 #### [facility] [address] [place], [address] Basophils/100 WBC (Bld) 0.3 % Normal 0-1 [facility] Comment on above: Performed By: #### L 100.0100, L500.4050, L501.9985 #### [facility] [address] [place], [address] Eosinophils/100 WBC (Bld) 2.5 % Normal 0-5 [facility] Comment on above: Performed By: #### L 100.0100, L500.4050, L501.9985 #### [facility] [address] [place], [address] Erythrocyte distribution width (RBC) [Ratio] 13.6 % Normal 11.6-14.6 [facility] Comment on above: Performed By: #### L 100.0100, L500.4050, L501.9985 #### [facility] [address] [place], [address] Hematocrit (Bld) [Volume fraction] 32.3 % Low 37-47 [facility] Comment on above: Performed By: #### L 100.0100, L500.4050, L501.9985 #### [facility] [address] [place], [address] Hemoglobin (Bld) [Mass/Vol] 11.0 g/dL Low 12.0-15.0 [facility] Comment on above: Performed By: #### L 100.0100, L500.4050, L501.9985 #### [facility] [address] [place], [address] IG% 0.600 Normal 0.0-0.9 [facility] Comment on above: Result Comment: IG% - Immature Granulocytes (promyelocytes, myelocytes and metamyelocytes) > 1% indicates that a LEFT SHIFT is Present. Performed By: #### L 100.0100, L500.4050, L501.9985 #### [facility] [address] [place], [address] Lymphocytes/100 WBC (Bld) 11.6 % Low 19-41 [facility] Comment on above: Performed By: #### L 100.0100, L500.4050, L501.9985 #### [facility] [address] [place], [address] MCH (RBC) [Entitic mass] 28.4 pg Normal 27.0-32.0 [facility] Comment on above: Performed By: #### L 100.0100, L500.4050, L501.9985 #### [facility] [address] [place], [address] MCHC (RBC) [Mass/Vol] 34.1 g/dL Normal 32-36 [facility] Comment on above: Performed By: #### L 100.0100, L500.4050, L501.9985 #### [facility] [address] [place], [address] MCV (RBC) [Entitic vol] 83.2 fL Normal 81-99 [facility] Comment on above: Performed By: #### L 100.0100, L500.4050, L501.9985 #### [facility] [address] [place], [address] Monocytes/100 WBC (Bld) 6.1 % Normal 0-10 [facility] Comment on above: Performed By: #### L 100.0100, L500.4050, L501.9985 #### [facility] [address] [place], [address] Neutrophils/100 WBC (Bld) 78.9 % High 47-70 [facility] Comment on above: Performed By: #### L 100.0100, L500.4050, L501.9985 #### [facility] [address] [place], [address] Nucleated RBC (Bld) [#/Vol] 0 10*3/uL Normal 0-5 [facility] Comment on above: Performed By: #### L 100.0100, L500.4050, L501.9985 #### [facility] [address] [place], [address] Platelet mean volume (Bld) [Entitic vol] 9.8 fL Normal 6.2-12.0 [facility] Comment on above: Performed By: #### L 100.0100, L500.4050, L501.9985 #### [facility] [address] [place], [address] Platelets (Bld) [#/Vol] 247 10*3/uL Normal 150-450 [facility] Comment on above: Performed By: #### L 100.0100, L500.4050, L501.9985 #### [facility] [address] [place], [address] RBC (Bld) [#/Vol] 3.88 10*6/uL Low 4.2-5.4 [facility] Comment on above: Performed By: #### L 100.0100, L500.4050, L501.9985 #### [facility] [address] [place], [address] RDW SD 40.8 fl Normal 35.1-43.9 [facility] Comment on above: Performed By: #### L 100.0100, L500.4050, L501.9985 #### [facility] [address] [place], [address] WBC (Bld) [#/Vol] 11.8 10*3/uL High 4.4-11.0 [facility] Comment on above: Performed By: #### L 100.0100, L500.4050, L501.9985 #### [facility] [address] [place], [address] Carbon dioxide, total [Moles /volume] in Central venous bloodOrdered By: Isabel Benigno on 09-05-2024 CO2 [Moles/Vol] 27.1 mmol/L 21.0-32.0 [facility] Chloride assayOrdered By: Garima Pelaez on 09-05-2024 Chloride [Moles/Vol] 97 mmol/L Low 98-108 [facility] Comprehensive Metabolic Prof ilon 09-05-2024 Albumin [Mass/Vol] 3.1 g/dL Low 3.4-4.8 [facility] Comment on above: Performed By: #### L 100.0100, L500.4050, L501.9985 #### [facility] [address] [place], [address] Albumin/Globulin [Mass ratio] 0.8 {ratio} Low 0.9-2.4 [facility] Comment on above: Performed By: #### L 100.0100, L500.4050, L501.9985 #### [facility] [address] [place], [address] ALK PHOS 80 U/L Normal 35-104 [facility] Comment on above: Performed By: #### L 100.0100, L500.4050, L501.9985 #### [facility] [address] [place], [address] ALT [Catalytic activity/Vol] 11 U/L Normal <=34 [facility] Comment on above: Performed By: #### L 100.0100, L500.4050, L501.9985 #### [facility] [address] [place], [address] AST [Catalytic activity/Vol] 20 U/L Normal <=31 [facility] Comment on above: Performed By: #### L 100.0100, L500.4050, L501.9985 #### [facility] [address] [place], [address] Bilirubin [Mass/Vol] 0.40 mg/dL Normal 0.00-1.30 [facility] Comment on above: Performed By: #### L 100.0100, L500.4050, L501.9985 #### [facility] [address] [place], [address] BUN/CRE 19.7 RATIO Normal 10-20 [facility] Comment on above: Performed By: #### L 100.0100, L500.4050, L501.9985 #### [facility] [address] [place], [address] Calcium [Mass/Vol] 8.9 mg/dL Normal 7.6-11.0 [facility] Comment on above: Performed By: #### L 100.0100, L500.4050, L501.9985 #### [facility] [address] [place], [address] Chloride [Moles/Vol] 97 mmol/L Low 98-108 [facility] Comment on above: Performed By: #### L 100.0100, L500.4050, L501.9985 #### [facility] [address] [place], [address] CO2 [Moles/Vol] 27.1 mmol/L Normal 21.0-32.0 [facility] Comment on above: Performed By: #### L 100.0100, L500.4050, L501.9985 #### [facility] [address] [place], [address] Creatinine [Mass/Vol] 0.58 mg/dL Low 0.70-1.20 [facility] Comment on above: Performed By: #### L 100.0100, L500.4050, L501.9985 #### [facility] [address] [place], [address] ECRCL 67.27 ml/min Normal 50-250 [facility] Comment on above: Performed By: #### L 100.0100, L500.4050, L501.9985 #### [facility] [address] [place], [address] GAP 8 Normal 5-15 [facility] Comment on above: Performed By: #### L 100.0100, L500.4050, L501.9985 #### [facility] [address] [place], [address] GFR/1.73 sq M.predicted among non-blacks MDRD (S/P/Bld) [Vol rate/Area] 100 mL/min/{1.73_m2} Normal >60 [facility] Comment on above: Result Comment: mL/m in/1.73m2 CKD-EPI Creatinine Equation (2020) Performed By: #### L 100.0100, L500.4050, L501.9985 #### [facility] [address] [place], [address] Globulin (S) [Mass/Vol] 4.1 g/dL Normal 2.2-4.2 [facility] [facility] Comment on above: Performed By: #### L 100.0100, L500.4050, L501.9985 #### [facility] [address] [place], [address] Glucose [Mass/Vol] 125 mg/dL High 70-99 [facility] Comment on above: Performed By: #### L 100.0100, L500.4050, L501.9985 #### [facility] [address] [place], [address] Potassium [Moles/Vol] 3.9 mmol/L Normal 3.3-5.1 [facility] Comment on above: Performed By: #### L 100.0100, L500.4050, L501.9985 #### [facility] [address] [place], [address] Sodium [Moles/Vol] 132 mmol/L Low 133-145 [facility] Comment on above: Performed By: #### L 100.0100, L500.4050, L501.9985 #### [facility] [address] [place], [address] T PROT 7.2 g/dL Normal 5.9-8.4 [facility] Comment on above: Performed By: #### L 100.0100, L500.4050, L501.9985 #### [facility] [address] [place], [address] Urea nitrogen [Mass/Vol] 12 mg/dL Normal 4-19 [facility] Comment on above: Performed By: #### L 100.0100, L500.4050, L501.9985 #### [facility] [address] [place], [address] Discharge Instructionon 08-18 Discharge Instruction [facility] Medical Records Department [address] [place] [address] Instructions for Home/Discharge Instructions 09/05/24 0655 MR#: [id number] Acct: [id number] Name: DOREEN DENISE LONNIE Rep #: [id number] : 1960 64 From: Huseyin Truong DO PCP: Care Physician,Mae Primary Status:ADM MARILEE Discharge Instructions Diet Discharge Diet: 1800 Calorie Control Diet DC O2, CPAP, BIPAP needs Home O2 Discharge instructions: No Dressing / Incision Discharge Activity: Return to Normal Activity Weight Bearing Status: Full weight bearing Follow Up Care Test Results: Test results from this visit will be discussed in further detail at your follow-up appointment, if applicable. Discharge Plan Admission Admit Date/Time: 09/04/24 23:55 Primary Reason for Your Visit: Uncontrolled type 2 diabetes Attending Provider: Huseyin Truong Primary Care Provider: Care Physician,No Primary Consulting Providers: Isabel Pelaez Discharge Orders/Prescriptions Prescriptions: New insulin glargine-yfgn 100 unit/mL (3 mL) Insulin Pen 10 unit subcut BID Qty: 15 0RF metformin 500 mg tablet 500 mg PO BID Qty: 60 0RF (DME) pen needle, diabetic 31 gauge x 1/3 needle See Rx Instructions .Route Qty: 100 0RF Rx Instructions: As directed Referrals / Follow Up: Care Physician,No Primary [Primary Care Provider] - Sánchez Bhagat, JEWELRY MAKER-C [[facility]] - Within 2 Weeks (Call for appointment) Disposition Disposition (needs filled in before D/C Order can be placed): Home, Self Care 09/05/24 0810 Huseyin Truong DO CC: Dr. Isabel Pelaez MD; No Primary Care Physician Signed Normal [facility] Eosinophil percentageOrdered By: Isabel Pelaez on 09-05-2024 Eosinophils/100 WBC (Bld) 2.5 % 0-5 [facility] Erythrocyte distribution wid th ratioOrdered By: Isabel Pelaez on 09-05-2024 Erythrocyte distribution width (RBC) [Ratio] 13.6 % 11.6-14.6 [facility] Erythrocyte distribution wid th standard deviationOrdered By: Isabel Pelaez on 09-05-2024 Erythrocyte distribution width (RBC) [Entitic vol] 40.8 fL 35.1-43.9 [facility] Estimation of creatinine candace aranceOrdered By: Isabel Pelaez on 09-05-2024 Estimated Creatinine Clearance Calc 67.27 ml/min 50-250 [facility] GFR/1.73 sq M.predicted manav g non-blacks MDRD (S/P/Bld) [Vol rate/Area]Ordered By: Isabel Pelaez on 09-05-2024 Estimated GFR (MDRD) Non-Af Amer 100 >60 [facility] Comment on above: mL/min/1.73m2 CKD-EP I Creatinine Equation (2020) Glucose measurement at bedsi deOrdered By: Huseyin Truong on 09-05-2024 Bedside Glucose (Misc Panel) 204 mg/dL High 74-106 [facility] Comment on above: MANAGEMENT OF PATIEN T CARE PER NURSING PROTOCOL Hematocrit Auto (Bld) [Volum e fraction]Ordered By: Isabel Pelaez on 09-05-2024 Hematocrit (Bld) [Volume fraction] 32.3 % Low 37-47 [facility] Hemoglobin A1con 09-05-2024 HbA1c (Bld) [Mass fraction] 12.3 % Normal <=5.6 [facility] Comment on above: Performed By: #### L 9000.0810 #### [facility] [address] [place], [address] Hemoglobin A1c percentageOrd ered By: Isabel Benigno on 09-05-2024 HbA1c (Bld) [Mass fraction] 12.3 % >5.7 [facility] Hemoglobin measurementOrdere d By: Isabel Pelaez on 09-05-2024 Hemoglobin (Bld) [Mass/Vol] 11.0 g/dL Low 12.0-15.0 [facility] Immature granulocytes/100 WB C Auto (Bld)Ordered By: Isabel Benigno on 09-05-2024 Immature granulocytes/100 WBC (Bld) 0.600 % 0.0-0.9 [facility] Comment on above: IG% - Immature Granu locytes (promyelocytes, myelocytes and metamyelocytes) > 1% indicates that a LEFT SHIFT is Present. Laboratory - Chemistry and C hemistry - challengeOrdered By: Isabel Pelaez on 09-05-2024 AST [Catalytic activity/Vol] 20 U/L <32 [facility] Lymphocytes Auto (Unsp spec) [#/Vol]Ordered By: Isabel Pelaez on 09-05-2024 Lymphocytes (Bld) [#/Vol] 1.37 10*3/uL 0.83-4.51 [facility] Lymphocytes/100 WBC Auto (Un sp spec)Ordered By: Isabel Benigno on 09-05-2024 Lymphocytes/100 WBC (Bld) 11.6 % Low 19-41 [facility] MCV (mean corpuscular volume ) determinationOrdered By: Isabel Pelaez on 09-05-2024 MCV (RBC) [Entitic vol] 83.2 fL 81-99 [facility] Magnesiumon 09-05-2024 Magnesium [Mass/Vol] 1.7 mg/dL Normal 1.5-2.2 [facility] Comment on above: Order Comment: Comme nts: May add to ED labs Comments: may add to ED labs Performed By: #### L 501.5200, L501.2300 #### [facility] [address] [place], [place], [id number] Mean corpuscular hemoglobin (MCH) determinationOrdered By: Isabel Pelaez on 09-05-2024 MCH (RBC) [Entitic mass] 28.4 pg 27.0-32.0 [facility] Mean corpuscular hemoglobin concentration (MCHC) determinationOrdered By: Isabel Pelaez on 09-05-2024 MCHC (RBC) [Mass/Vol] 34.1 g/dL 32-36 [facility] Mean platelet volume determi nationOrdered By: Isabel Benigno on 09-05-2024 Platelet mean volume (Bld) [Entitic vol] 9.8 fL 6.2-12.0 [facility] Methadone, urineOrdered By: [facility] Benigno on 09-05-2024 Urine Methadone Screen Negative < 300 ng/mL [facility] Monocyte percentageOrdered B y: Isabel Pelaez on 09-05-2024 Monocytes/100 WBC (Bld) 6.1 % 0-10 [facility] Neutrophil percentageOrdered By: [facility] Benigno on 09-05-2024 Neutrophils/100 WBC (Bld) 78.9 % High 47-70 [facility] No Panel InformationOrdered By: Isabel Pelaez on 09-05-2024 Urine Buprenorphine Qualitative Negative < 200 ng/mL [facility] Urine Oxycodone Screen Positive < 100 ng/mL [facility] Comment on above: If confirmation test ing is needed, a separate order will be required to send out testing to the reference laboratory. Nucleated red blood cell per centageOrdered By: Isabel Pelaez on 09-05-2024 Nucleated RBC/100 WBC (Bld) [Ratio] 0 % 0-5 [facility] Osmolality, Serumon 09-06-19 25 OSMOLALITY,SER 280 mOsm/KG Normal 280-301 [facility] Comment on above: Performed By: #### L 501.7300 #### [facility] [address] [place], [place], [address] Osmolality, serumOrdered By: Isabel Pelaez on 09-05-2024 Serum Osmolality 280 mOsm/KG 280-301 [facility] Phosphoruson 09-05-2024 Phosphate [Mass/Vol] 2.7 mg/dL Normal 2.7-4.5 [facility] Comment on above: Order Comment: Comme nts: May add to ED labs Comments: may add to ED labs Performed By: #### L 501.5200, L501.2300 #### [facility] [address] [place], [address] Platelet countOrdered By: Garima ramos Benigno on 09-05-2024 Platelets (Bld) [#/Vol] 247 10*3/uL 150-450 [facility] Potassium (Unsp spec) [Mass/ Vol]Ordered By: Isabel Pelaez on 09-05-2024 Potassium [Moles/Vol] 3.9 mmol/L 3.3-5.1 [facility] Quantitative urine opiates m easurementOrdered By: Isabel Pelaez on 09-05-2024 Opiates Ql (U) Negative < 300 ng/mL [facility] RBC Auto (Bld) [#/Vol]Ordere d By: Isabel Pelaez on 09-05-2024 RBC (Bld) [#/Vol] 3.88 10*6/uL Low 4.2-5.4 [facility] Serum creatinine measurement (mass/volume)Ordered By: Isabel Pelaez on 09-05-2024 Creatinine [Mass/Vol] 0.58 mg/dL Low 0.70-1.20 [facility] Serum globulin measurementOr dered By: Isabel Pelaez on 09-05-2024 Globulin (S) [Mass/Vol] 4.1 g/dL 2.2-4.2 [facility] Serum glucose measurement (m ass/volume)Ordered By: Isabel Pelaez on 09-05-2024 Glucose [Mass/Vol] 125 mg/dL High 70-99 [facility] Serum or plasma alanine erickson otransferase (ALT) measurementOrdered By: Isabel Pelaez on 09-05-2024 ALT [Catalytic activity/Vol] 11 U/L <35 [facility] Serum or plasma albumin kathleen urement (mass/volume)Ordered By: Isabel Pelaez on 09-05-2024 Albumin [Mass/Vol] 3.1 g/dL Low 3.4-4.8 [facility] Serum or plasma albumin/glob ulin mass ratioOrdered By: Isabel Pelaez on 09-05-2024 Albumin/Globulin [Mass ratio] 0.8 {ratio} Low 0.9-2.4 [facility] Serum or plasma alkaline jennyfer sphatase measurementOrdered By: Isabel Pelaez on 09-05-2024 ALP [Catalytic activity/Vol] 80 U/L 35-104 [facility] Serum or plasma calcium kathleen urement (mass/volume)Ordered By: Isabel Pelaez on 09-05-2024 Calcium [Mass/Vol] 8.9 mg/dL 7.6-11.0 [facility] Serum or plasma urea nitroge n measurement (mass/volume)Ordered By: Isabel Pelaez on 09-05-2024 Urea nitrogen [Mass/Vol] 12 mg/dL 4-19 [facility] Sodium levelOrdered By: Adriau mn Benigno on 09-05-2024 Sodium [Moles/Vol] 132 mmol/L Low 133-145 [facility] Total proteinOrdered By: Adria umn Benigno on 09-05-2024 Protein [Mass/Vol] 7.2 g/dL 5.9-8.4 [facility] Urine Drug Screen (VISTA)on 09-05-2024 AMPHETAMINES Negative Normal <1000 ng/mL [facility] Comment on above: Performed By: #### L 505.5000 #### [facility] [address] [place], [place], [id number] BARBITIURATES Negative Normal < 200 ng/mL [facility] Comment on above: Performed By: #### L 505.5000 #### [facility] [address] [facility] [id number] BENZODIAZIPINE Negative Normal < 200 ng/mL [facility] Comment on above: Performed By: #### L 505.5000 #### [facility] [address] [place], [place], [id number] BUP Ur Drug Scr Negative Normal < 200 ng/mL [facility] Comment on above: Performed By: #### L 505.5000 #### [facility] [address] [place], [address] COCAINE Negative Normal < 300 ng/mL [facility] Comment on above: Performed By: #### L 505.5000 #### [facility] [address] [facility] [address] Fentanyl Negative Normal [facility] Comment on above: Performed By: #### L 505.5000 #### [facility] [address] [place] [id number] METHADONE Negative Normal < 300 ng/mL [facility] Comment on above: Performed By: #### L 505.5000 #### [facility] [address] [place] [id number] OPIATES Negative Normal < 300 ng/mL [facility] Comment on above: Performed By: #### L 505.5000 #### [facility] [address] [place] [address] OXYCODONE Positive Normal < 100 ng/mL [facility] Comment on above: Result Comment: If c onfirmation testing is needed, a separate order will be required to send out testing to the reference laboratory. Performed By: #### L 505.5000 #### [facility] [address] [place] [address] PCP Negative Normal < 25 ng/mL [facility] Comment on above: Performed By: #### L 505.5000 #### [facility] [address] [place] [id number] THC Negative Normal < 50 ng/mL [facility] Comment on above: Performed By: #### L 505.5000 #### [facility] [address] [place] [phone] Urine benzodiazepine levelOr dered By: Isabel White on 09-05-2024 Benzodiazepines Ql (U) Negative < 200 ng/mL [facility] Urine cocaine levelOrdered B y: Isabel Pelaez on 09-05-2024 Cocaine Ql (U) Negative < 300 ng/mL [facility] Urine ezfpw-3-yorigcrikksndo abinol (THC) measurementOrdered By: Isabel Pelaez on 09-05-2024 Cannabinoids Screen Ql (U) Negative < 50 ng/mL [facility] Urine phencyclidine (PCP) de tectionOrdered By: Isable Pelaez on 09-05-2024 Phencyclidine Ql (U) Negative < 25 ng/mL [facility] White blood cell (WBC) count Ordered By: Isabel Pelaez on 09-05-2024 WBC (Bld) [#/Vol] 11.8 10*3/uL High 4.4-11.0 [facility] fentaNYL Screen Ql (U)Ordere d By: Isabel Pelaez on 09-05-2024 Urine Fentanyl Screen Negative [facility] Absolute neutrophil countOrd ered By: Ramez Nuñez on 09-04-2024 Neutrophils (Bld) [#/Vol] 8.9 10*3/uL High 2.0-7.7 [facility] Anion gap in Serum or Plasma Ordered By: Ramez Nuñez on 09-04-2024 Anion gap [Moles/Vol] 9 mmol/L 5-15 [facility] BUN/creatinine ratioOrdered By: Ramez Nuñez on 09-04-2024 Urea nitrogen/Creatinine [Mass ratio] 20.1 mg/mg High 10-20 [facility] Base excess Calc (BldV) [Mol es/Vol]Ordered By: Ramez Nuñez on 09-04-2024 Venous Blood Base Excess 9 mmol/L High -1.0-3.5 [facility] Basic Metabolic Profile (BMP )on 09-04-2024 BUN/CRE 20.1 RATIO High 10-20 [facility] Comment on above: Performed By: #### L 9000.0810 #### [facility] [address] [place], [place], [id number] Calcium [Mass/Vol] 8.6 mg/dL Normal 7.6-11.0 [facility] Comment on above: Performed By: #### L 9000.0810 #### [facility] [address] [place], [address] Chloride [Moles/Vol] 90 mmol/L Low 98-108 [facility] Comment on above: Performed By: #### L 9000.0810 #### [facility] [address] [place], [address] CO2 [Moles/Vol] 26.7 mmol/L Normal 21.0-32.0 [facility] Comment on above: Performed By: #### L 9000.0810 #### [facility] [address] [place], [address] Creatinine [Mass/Vol] 0.68 mg/dL Low 0.70-1.20 [facility] Comment on above: Performed By: #### L 9000.0810 #### [facility] [address] [place], [address] ECRCL 67.27 ml/min Normal 50-250 [facility] Comment on above: Performed By: #### L 9000.0810 #### [facility] [address] [place], [address] GAP 9 Normal 5-15 [facility] Comment on above: Performed By: #### L 9000.0810 #### [facility] [address] [place], [address] GFR/1.73 sq M.predicted among non-blacks MDRD (S/P/Bld) [Vol rate/Area] 96 mL/min/{1.73_m2} Normal >60 [facility] Comment on above: Result Comment: mL/m in/1.73m2 CKD-EPI Creatinine Equation (2020) Performed By: #### L 9000.0810 #### [facility] [address] [place], [address] Glucose [Mass/Vol] 388 mg/dL High 70-99 [facility] Comment on above: Performed By: #### L 9000.0810 #### [facility] [address] [place], [address] Potassium [Moles/Vol] 4.6 mmol/L Normal 3.3-5.1 [facility] Comment on above: Result Comment: Hemo lysis present, Results??could be affected. ?? Performed By: #### L 9000.0810 #### [facility] [address] [place], [address] Sodium [Moles/Vol] 125 mmol/L Low 133-145 [facility] Comment on above: Performed By: #### L 9000.0810 #### [facility] [address] [place], [address] Urea nitrogen [Mass/Vol] 14 mg/dL Normal 4-19 [facility] Comment on above: Performed By: #### L 9000.0810 #### [facility] [address] [place], [address] Basophil percentageOrdered B y: Ramez Nuñez on 09-04-2024 Basophils/100 WBC (Bld) 0.2 % 0-1 [facility] Bilirubin Test strip Ql (U)O rdered By: Ramez Nuñez on 09-04-2024 Bilirubin Ql (U) Negative Negative [facility] CBC W Auto Differential pane l (Bld)on 09-04-2024 Basophils (Bld) [#/Vol] 0.03 10*3/uL Normal <0.11 [facility] Comment on above: Order Comment: Speci men Type: BLOOD SPECIMENOrdering Facility: [facility] Address: [address] [place] [address] Performed By: #### 5 7021-8 ####[facility] [id number] [id number] [place] [address] [place] Basophils/100 WBC (Bld) 0.2 % Normal [facility] Comment on above: Order Comment: Speci men Type: BLOOD SPECIMENOrdering Facility: [facility] Address: [address] [place] [address] Performed By: #### 5 7021-8 ####[facility] LAB[facility] [id number] [place] [address] [place] Differential cell count method Nom (Bld) Auto Normal [facility] Comment on above: Order Comment: Speci men Type: BLOOD SPECIMENOrdering Facility: [facility] Address: [address] [place] [address] Performed By: #### 5 7021-8 ####[facility] LAB[facility] [id number] [place] [address] [place] Eosinophils (Bld) [#/Vol] 0.23 10*3/uL Normal <0.46 [facility] Comment on above: Order Comment: Speci men Type: BLOOD SPECIMENOrdering Facility: [facility] Address: [address] [place] [address] Performed By: #### 5 7021-8 ####[facility] [id number] [place] [address] [place] Eosinophils/100 WBC (Bld) 1.9 % Normal [facility] Comment on above: Order Comment: Speci men Type: BLOOD SPECIMENOrdering Facility: [facility] Address: [address] [place] [address] Performed By: #### 5 7021-8 ####[facility] [id number] [place] [address] [place] Erythrocyte distribution width (RBC) [Ratio] 13.5 % Normal 11.5-15.0 [facility] Comment on above: Order Comment: Speci men Type: BLOOD SPECIMENOrdering Facility: [facility] Address: [address] [place] [address] Performed By: #### 5 7021-8 ####[facility] [id number] [place] [address] [place] Hematocrit (Bld) [Volume fraction] 34.2 % Low 36.0-46.0 [facility] Comment on above: Order Comment: Speci men Type: BLOOD SPECIMENOrdering Facility: [facility] Address: [address] [place] [address] Performed By: #### 5 7021-8 ####[facility] [id number] [place] [address] [place] Hemoglobin (Bld) [Mass/Vol] 11.0 g/dL Low 11.5-15.5 [facility] Comment on above: Order Comment: Speci men Type: BLOOD SPECIMENOrdering Facility: [facility] Address: [address] [place] [address] Performed By: #### 5 7021-8 ####[facility] [id number] [place] [address] [place] Immature granulocytes (Bld) [#/Vol] 0.07 10*3/uL Normal <0.10 [facility] Comment on above: Order Comment: Speci men Type: BLOOD SPECIMENOrdering Facility: [facility] Address: [address] [place] [address] Performed By: #### 5 7021-8 ####[facility] LABIA [id number] [place] [address] [place] Immature granulocytes/100 WBC (Bld) 0.6 % Normal [facility] Comment on above: Order Comment: Speci men Type: BLOOD SPECIMENOrdering Facility: [facility] Address: [address] [place] [address] Performed By: #### 5 7021-8 ####[facility] LABCLIA [id number] [place] [address] [place] Lymphocytes (Bld) [#/Vol] 1.30 10*3/uL Normal 1.00-4.00 [facility] Comment on above: Order Comment: Speci men Type: BLOOD SPECIMENOrdering Facility: [facility] Address: [address] [place] [address] Performed By: #### 5 7021-8 ####[facility] LABIA [id number] [place] [address] [place] Lymphocytes/100 WBC (Bld) 10.7 % Normal [facility] Comment on above: Order Comment: Speci men Type: BLOOD SPECIMENOrdering Facility: [facility] Address: [address] [place] [address] Performed By: #### 5 7021-8 ####[facility] LABCLIA [id number] [place] [address] [place] MCH (RBC) [Entitic mass] 27.8 pg Normal 26.0-34.0 [facility] Comment on above: Order Comment: Speci men Type: BLOOD SPECIMENOrdering Facility: [facility] Address: [address] [place] [address] Performed By: #### 5 7021-8 ####[facility] LABIA [id number] [place] [address] [place] MCHC (RBC) [Mass/Vol] 32.2 g/dL Normal 30.5-36.0 [facility] Comment on above: Order Comment: Speci men Type: BLOOD SPECIMENOrdering Facility: [facility] Address: [address] [place] [address] Performed By: #### 5 7021-8 ####[facility] LABCLIA [id number] [place] [address] [place] MCV (RBC) [Entitic vol] 86.6 fL Normal 80.0-100.0 [facility] Comment on above: Order Comment: Speci men Type: BLOOD SPECIMENOrdering Facility: [facility] Address: [address] [place] [address] Performed By: #### 5 7021-8 ####[facility] LABCLIA [id number] [address] [address] [place] Monocytes (Bld) [#/Vol] 0.80 10*3/uL Normal <0.87 [facility] Comment on above: Order Comment: Speci men Type: BLOOD SPECIMENOrdering Facility: [facility] Address: [address] [place] [address] Performed By: #### 5 7021-8 ####[facility] LABCLIA [id number] [place] [address] [place] Monocytes/100 WBC (Bld) 6.6 % Normal [facility] Comment on above: Order Comment: Speci men Type: BLOOD SPECIMENOrdering Facility: [facility] Address: [address] [place] [address] Performed By: #### 5 7021-8 ####[facility]IA [id number] [place] [address] [place] Neutrophils (Bld) [#/Vol] 9.76 10*3/uL High 1.45-7.50 [facility] Comment on above: Order Comment: Speci men Type: BLOOD SPECIMENOrdering Facility: [facility] Address: [address] [place] [address] Performed By: #### 5 7021-8 ####[facility] LABCLIA [id number] [place] [address] [place] Neutrophils/100 WBC (Bld) 80.0 % Normal [facility] Comment on above: Order Comment: Speci men Type: BLOOD SPECIMENOrdering Facility: [facility] Address: [address] [place] [address] Performed By: #### 5 7021-8 ####[facility] LAB[facility]IA [id number] [address], [facility] [place] Nucleated RBC (Bld) [#/Vol] 10*3/uL Normal <0.01 [facility] Comment on above: Order Comment: Speci men Type: BLOOD SPECIMENOrdering Facility: [facility] Address: [address] [place] [address] Performed By: #### 5 7021-8 ####[facility] [id number] [address] [address] [place] Nucleated RBC/100 WBC (Bld) [Ratio] 0.0 /100 WBC Normal [facility] Comment on above: Order Comment: Speci men Type: BLOOD SPECIMENOrdering Facility: [facility] Address: [address] [place] [address] Performed By: #### 5 7021-8 ####[facility] [id number] [address], [place] [address] [place] Platelet mean volume (Bld) [Entitic vol] 10.1 fL Normal 9.0-12.7 [facility] Comment on above: Order Comment: Speci men Type: BLOOD SPECIMENOrdering Facility: [facility] Address: [address] [place] [address] Performed By: #### 5 7021-8 ####[facility] [id number] [place] [address] [place] Platelets (Bld) [#/Vol] 272 10*3/uL Normal 150-400 [facility] Comment on above: Order Comment: Speci men Type: BLOOD SPECIMENOrdering Facility: [facility] Address: [address] [place] [address] Performed By: #### 5 7021-8 ####[facility] [id number] [address] [place] [address] [place] RBC (Bld) [#/Vol] 3.95 10*6/uL Normal 3.90-5.20 [facility] Comment on above: Order Comment: Speci men Type: BLOOD SPECIMENOrdering Facility: [facility] Address: [address] [place] [address] Performed By: #### 5 7021-8 ####[facility] LABCLIA [id number] [address] [address] [place] WBC (Bld) [#/Vol] 12.19 10*3/uL High 3.70-11.00 [facility] Comment on above: Order Comment: Speci men Type: BLOOD SPECIMENOrdering Facility: [facility] Address: [address] [place] [address] Performed By: #### 5 7021-8 ####[facility] [id number] [address] [address] [place] CBC W/Diff, Automatedon 08-18 Absolute Lymph 1.37 X10 3/uL Normal 0.83-4.51 [facility] Comment on above: Performed By: #### L 100.0100 #### [facility] [address] [place], [address] Absolute Neut 8.9 X10 3/uL High 2.0-7.7 [facility] Comment on above: Performed By: #### L 100.0100 #### [facility] [address] [facility] [place], [address] Basophils/100 WBC (Bld) 0.2 % Normal 0-1 [facility] Comment on above: Performed By: #### L 100.0100 #### [facility] [address] [place], [address] Eosinophils/100 WBC (Bld) 2.1 % Normal 0-5 [facility] Comment on above: Performed By: #### L 100.0100 #### [facility] [address] [place], [address] Erythrocyte distribution width (RBC) [Ratio] 13.5 % Normal 11.6-14.6 [facility] Comment on above: Performed By: #### L 100.0100 #### [facility] [address] [place], [address] Hematocrit (Bld) [Volume fraction] 30.9 % Low 37-47 [facility] Comment on above: Performed By: #### L 100.0100 #### [facility] [address] [place], [address] Hemoglobin (Bld) [Mass/Vol] 10.7 g/dL Low 12.0-15.0 [facility] Comment on above: Performed By: #### L 100.0100 #### [facility] [address] [place], [address] IG% 0.500 Normal 0.0-0.9 [facility] Comment on above: Result Comment: IG% - Immature Granulocytes (promyelocytes, myelocytes and metamyelocytes) > 1% indicates that a LEFT SHIFT is Present. Performed By: #### L 100.0100 #### [facility] [address] [place], [address] Lymphocytes/100 WBC (Bld) 12.1 % Low 19-41 [facility] Comment on above: Performed By: #### L 100.0100 #### [facility] [address] [place], [address] MCH (RBC) [Entitic mass] 28.8 pg Normal 27.0-32.0 [facility] Comment on above: Performed By: #### L 100.0100 #### [facility] [address] [place], [address] MCHC (RBC) [Mass/Vol] 34.6 g/dL Normal 32-36 [facility] Comment on above: Performed By: #### L 100.0100 #### [facility] [address] [place], [address] MCV (RBC) [Entitic vol] 83.1 fL Normal 81-99 [facility] Comment on above: Performed By: #### L 100.0100 #### [facility] [address] [place], [address] Monocytes/100 WBC (Bld) 6.7 % Normal 0-10 [facility] Comment on above: Performed By: #### L 100.0100 #### [facility] [address] [place], [address] Neutrophils/100 WBC (Bld) 78.4 % High 47-70 [facility] Comment on above: Performed By: #### L 100.0100 #### [facility] [address] [place], [address] Nucleated RBC (Bld) [#/Vol] 0 10*3/uL Normal 0-5 [facility] Comment on above: Performed By: #### L 100.0100 #### [facility] [address] [place], [address] Platelet mean volume (Bld) [Entitic vol] 9.9 fL Normal 6.2-12.0 [facility] Comment on above: Performed By: #### L 100.0100 #### [facility] [address] [place], [address] Platelets (Bld) [#/Vol] 245 10*3/uL Normal 150-450 [facility] Comment on above: Performed By: #### L 100.0100 #### [facility] [address] [place], [address] RBC (Bld) [#/Vol] 3.72 10*6/uL Low 4.2-5.4 [facility] Comment on above: Performed By: #### L 100.0100 #### [facility] [address] [place], [address] RDW SD 40.4 fl Normal 35.1-43.9 [facility] Comment on above: Performed By: #### L 100.0100 #### [facility] [address] [place], [address] WBC (Bld) [#/Vol] 11.3 10*3/uL High 4.4-11.0 [facility] Comment on above: Performed By: #### L 100.0100 #### [facility] [address] [place], [address] CNPNon 09-04-2024 CNPN Normal [facility] CO2 (BldV) [Moles/Vol]Ordere d By: Ramez Nuñez on 09-04-2024 CO2 [Moles/Vol] 34 mmol/L High 23-33 [facility] CO2 (BldV) [Partial pressure ]Ordered By: Ramez Nuñez on 09-04-2024 Bed Mix Venous Bld PCO2 at Pat Temp 42.5 mmHg 41-51 [facility] Carbon dioxide, total [Moles /volume] in Central venous bloodOrdered By: Ramez Nuñez on 09-04-2024 CO2 [Moles/Vol] 26.7 mmol/L 21.0-32.0 [facility] Chloride assayOrdered By: Melissa Nuñez on 09-04-2024 Chloride [Moles/Vol] 90 mmol/L Low 98-108 [facility] Comprehensive metabolic 2000 panelon 09-04-2024 Albumin [Mass/Vol] 3.4 g/dL Low 3.9-4.9 [facility] Comment on above: Order Comment: Speci men Type: BLOOD SPECIMENOrdering Facility: [facility] Address: [address] [place] [address] Performed By: #### 2 4323-8 ####[facility] [id number] [address] [address] [place] ALP [Catalytic activity/Vol] 85 U/L Normal 34-123 [facility] Comment on above: Order Comment: Speci men Type: BLOOD SPECIMENOrdering Facility: [facility] Address: [address] [place] [address] Performed By: #### 2 4323-8 ####[facility] LABCLIA [id number] [facility] [id number] [address] [place] ALT [Catalytic activity/Vol] 13 U/L Normal 7-38 [facility] Comment on above: Order Comment: Speci men Type: BLOOD SPECIMENOrdering Facility: [facility] Address: [address] [place] [address] Performed By: #### 2 4323-8 ####[facility] [id number] [facility] [address] [place] [address] [place] Anion gap [Moles/Vol] 8 mmol/L Normal 8-15 [facility] Comment on above: Order Comment: Speci men Type: BLOOD SPECIMENOrdering Facility: [facility] Address: [address] [place] [address] Performed By: #### 2 4323-8 ####[facility] LAB[facility]IA [id number] [address], [facility] [place] AST [Catalytic activity/Vol] 15 U/L Normal 13-35 [facility] Comment on above: Order Comment: Speci men Type: BLOOD SPECIMENOrdering Facility: [facility] Address: [address] [place] [address] Performed By: #### 2 4323-8 ####[facility]CLIA [id number] [facility] [address] [address] [place] Bilirubin [Mass/Vol] 0.5 mg/dL Normal 0.2-1.3 [facility] Comment on above: Order Comment: Speci men Type: BLOOD SPECIMENOrdering Facility: [facility] Address: [address] [place], [place] [address] Performed By: #### 2 4323-8 ####[facility] LABCLIA [id number] [facility] [address] [place] [address] [place] Calcium [Mass/Vol] 9.2 mg/dL Normal 8.5-10.2 [facility] Comment on above: Order Comment: Speci men Type: BLOOD SPECIMENOrdering Facility: [facility] Address: [address] [place] [address] Performed By: #### 2 4323-8 ####[facility] LAB[facility]IA [id number] [place] [address] [place] Chloride [Moles/Vol] 89 mmol/L Low 98-107 [facility] Comment on above: Order Comment: Speci men Type: BLOOD SPECIMENOrdering Facility: [facility] Address: [address] [place] [address] Performed By: #### 2 4323-8 ####[facility] [id number] [place] [address] [place] CO2 [Moles/Vol] 29 mmol/L Normal 22-30 [facility] Comment on above: Order Comment: Speci men Type: BLOOD SPECIMENOrdering Facility: [facility] Address: [address] [place] [address] Performed By: #### 2 4323-8 ####[facility]IA [id number] [place] [address] [place] Creatinine [Mass/Vol] 0.53 mg/dL Low 0.58-0.96 [facility] Comment on above: Order Comment: Speci men Type: BLOOD SPECIMENOrdering Facility: [facility] Address: [address] [place] [address] Performed By: #### 2 4323-8 ####[facility] [id number] [place] [id number] [place] Creatinine and Glomerular filtration rate.predicted panel (S/P/Bld) 102 mL/min/1.73m??? Normal >=60 [facility] Comment on above: Order Comment: Speci men Type: BLOOD SPECIMENOrdering Facility: [facility] Address: [address] [place] [address] Result Comment: Cornell mated Glomerular Filtration Rate (eGFR) is calculated using the 2020 CKD-EPI creatinine equation. This equation utilizes serum creatinine, sex, and age as parameters. The creatinine assay has traceable calibration to isotope dilution-mass spectrometry. Refer to KDIGO guidelines for clinical interpretation. In patients with unstable renal function, e.g. those with acute kidney injury, the eGFR may not accurately reflect actual GFR. Performed By: #### 2 4323-8 ####[facility] [id number] [address] [address] [place] Glucose [Mass/Vol] 513 mg/dL High 74-99 [facility] Comment on above: Order Comment: Bia benitez Type: BLOOD SPECIMENOrdering Facility: [facility] Address: [address] [place] [address] Result Comment: The [place] Diabetes Association (ADA) provides guidance for cutoff values for fasting glucose and random glucose. The ADA defines fasting as no caloric intake for at least 8 hours. Fasting plasma glucose results between 100 to 125 mg/dL indicate increased risk for diabetes (prediabetes).Fasting plasma glucose results greater than or equal to 126 mg/dL meet the criteria for diagnosis of diabetes. In the absence of unequivocal hyperglycemia, results should be confirmed by repeat testing. In a patient with classic symptoms of hyperglycemia or hyperglycemic crisis, random plasma glucose results greater than or equal to 200 mg/dL meet the criteria for diagnosis of diabetes.Reference: Standards of Medical Care in Diabetes 2016, [place] Diabetes Association. Diabetes Care. 2016.39(Suppl 1). Performed By: #### 2 4323-8 ####[facility] [id number] [address] [address] [place] Potassium [Moles/Vol] 5.3 mmol/L High 3.7-5.1 [facility] Comment on above: Order Comment: Bia benitez Type: BLOOD SPECIMENOrdering Facility: [facility] Address: [address] [place] [address] Performed By: #### 2 4323-8 ####[facility] [id number] [address] [address] [place] Protein [Mass/Vol] 7.4 g/dL Normal 6.3-8.0 [facility] Comment on above: Order Comment: Speci men Type: BLOOD SPECIMENOrdering Facility: [facility] Address: [address] [place] [address] Performed By: #### 2 4323-8 ####[facility] LABCLIA [id number] [place] [id number] [place] Sodium [Moles/Vol] 126 mmol/L Low 136-144 [facility] Comment on above: Order Comment: Speci men Type: BLOOD SPECIMENOrdering Facility: [facility] Address: [address] [place] [address] Performed By: #### 2 4323-8 ####[facility] [id number] [place] [address] [place] Urea nitrogen [Mass/Vol] 15 mg/dL Normal 7-21 [facility] Comment on above: Order Comment: Speci men Type: BLOOD SPECIMENOrdering Facility: [facility] Address: [address] [place] [address] Performed By: #### 2 4323-8 ####[facility] [id number] [place] [id number] [place] Emergency Department Summary on 09-04-2024 Emergency Department Summary [facility] Medical Records Department [address] [place] [address] Emergency Department Summary 09/04/24 MR#: [id number] Acct: [id number] Name: DOREEN DENISE Rep #: [id number] : 1960 64 From: Ramez Nuñez MD PCP: Care Physician,No Primary Status:REG ER Location: ED HPI History of Present Illness Chief Complaint: Hyperglycemia Informant: patient and family Narrative Narrative: 64-year-old female states that she has felt poorly for a month. This is worse than the generalized fatigue she has had for the last 4-5 months that she relates to skin cancer on her left forearm that she is seeing oncology for and in the process of getting worked up before having surgical management of it which is going to also involve plastics according to family. In the past several weeks at least, she has had polyuria and polydipsia, and she had some labs from oncology this morning as an outpatient, her blood sugar was over 500, which is why she is here as she was directed to come to the ER. She states she was diagnosed as a diabetic in the past, but she thought that she did not have it anymore, she states she used to be on insulin and no pills that she knows of, but she has no idea what dose she was on and she takes no medicines for diabetes and has not for a long time. [facility] Medical History History of pneumonia History of diabetes mellitus History of cancer Endocarditis port placement HTN (hypertension) DLBCL (diffuse large B cell lymphoma) Neck mass Diabetes COPD (chronic obstructive pulmonary disease) Tobacco use disorder History of personality disorder Home Medications ???Medication ???Instructions ???Recorded ???Last Taken ???Type albuterol sulfate 90 mcg/actuation 1 - 2 puff inhalation Q4H PRN WA N 03/22/13 07/25/16 Rx aerosol inhaler Wheezing ##1 Allergy/AdvReac Type Severity Reaction Status Date / Time acetaminophen (From Vicodin) Allergy Severe Swelling Verified 09/04/24 22:10 hydrocodone bitartrate (From Allergy Severe Swelling Verified 09/04/24 22:10 Vicodin) Family History Mother Brain cancer Father Throat cancer Surgical History History of lymph node biopsy History of colonoscopy History of esophagogastroduodenoscopy (EGD) Status post myringotomy with insertion of tube History of section Social History Smoking Status: Light Smoker (<10/day) quit status: considering quitting additional social history: pt admits to vaping, using marijuana use, edibles, aspirin and ibuprofen ROS ROS ED Constitutional Constitutional ED: Reports chills, fatigue and malaise; Denies fever(s) Eyes Eyes: Denies change in vision or diplopia ENT ENT ED: Denies rhinorrhea or sore throat Cardiovascular Cardiovascular: Denies chest pain or palpitations Respiratory/Chest Respiratory/Chest: Denies cough or dyspnea Gastrointestinal Gastrointestinal: Denies abdominal pain, diarrhea, nausea or vomiting Genitourinary Genitourinary ED: Reports urinary frequency; Denies dysuria or hematuria Musculoskeletal Musculoskeletal: Denies back pain or neck pain Integumentary Reports other Details: Sore skin cancer lesion left forearm ; Denies abscess or rash Neurologic Neurologic: Denies headache(s), paresthesias or weakness Psychiatric Psychiatric: Denies anxiety or suicidal thoughts Endocrine Endocrinology: Reports polydipsia and polyuria EXAM Physical Exam Const Vital Signs: 09/04/24 22:10 09/04/24 22:27 Temperature 98 F Temperature Source Temporal Pulse Rate 105 H Respiratory Rate 16 Respiratory Effort Normal Non-Labored Blood Pressure 109/78 Blood Pressure Mean 88 Pulse Ox 93 Oxygen Delivery Method Room Air Positive well nourished and well developed Constitutional Narrative: Keenly alert conversive General Appearance ED: well developed and NAD HEENT Reports moist mucous membranes normocephalic and atraumatic Eyes PERRL and EOMs intact bilaterally Neck full ROM and supple Resp normal respiratory effort and clear to auscultation bilaterally Cardio regular rate, regular rhythm and no murmurs Rate: other Other Details: Mild tachycardia GI non-tender and non-distended Auscultation: normoactive bowel sounds Palpation: soft Back/Spine no CVA tenderness General Back: other FROM Extremity normal to inspection General Extremety ED: Negative for edema, pulses abnormal or tenderness General Extremity: Negative for edema or pulses abnormal Neuro oriented x3, CN's II-XII intact bilaterally and no sensory deficits noted Sensorium / O (more content not included)... Normal [facility] Eosinophil percentageOrdered By: Ramez Nuñez on 09-04-2024 Eosinophils/100 WBC (Bld) 2.1 % 0-5 [facility] Epithelial cells.squamous LM Ql (Urine sed)Ordered By: Ramez Nuñez on 09-04-2024 Epithelial cells.squamous LM.HPF (Urine sed) [#/Area] 0 /[HPF] 5-10 [facility] Erythrocyte distribution wid th ratioOrdered By: Ramez Nuñez on 09-04-2024 Erythrocyte distribution width (RBC) [Ratio] 13.5 % 11.6-14.6 [facility] Erythrocyte distribution wid th standard deviationOrdered By: Ramez Nuñez on 09-04-2024 Erythrocyte distribution width (RBC) [Entitic vol] 40.4 fL 35.1-43.9 [facility] Estimation of creatinine candace aranceOrdered By: Ramez Nuñez on 09-04-2024 Estimated Creatinine Clearance Calc 67.27 ml/min 50-250 [facility] GFR/1.73 sq M.predicted manav g non-blacks MDRD (S/P/Bld) [Vol rate/Area]Ordered By: Ramez Nuñez on 09-04-2024 Estimated GFR (MDRD) Non-Af Amer 96 >60 [facility] Comment on above: mL/min/1.73m2 CKD-EP I Creatinine Equation (2020) Glucose Ql (U)Ordered By: Melissa Nuñez on 09-04-2024 Glucose (U) [Mass/Vol] 1000 mg/dL High Normal [facility] H AND P Exam - [facility] 09-04-2024 H&P Exam - Hospitalist [facility] Medical Records Department [address] [place] [address] H P Exam - Hospitalist 09/04/24 4514 MR#: [id number] Acct: [id number] Name: DOREEN DENISE Rep #: [id number] : 1960 64 From: Isabel Pelaez MD PCP: Care Physician,No Primary Status:ADM MARILEE Location: [place] [address] HPI - General General Date of Admission: 09/04/24 Date of Service: 09/04/24 Chief Complaint: Fatigue, weakness. HPI Narrative The patient is a 64 y/o F w/ PMHx: COPD, Diabetes mellitus type II, Tobacco use, Polysubstance abuse (methamphetamine/cocaine/can nabis), Personality disorder unclear specifics, HTN, Hx Endocarditis treated with IV antibiotic therapy only per patient report, Chronic normocytic anemia, recent history of enlarging mass in the left forearm of unclear specific significance with planned MRI at that time with follow-up with MRI obtained 07/29/2024 with a large and homogenously enhancing lobulated dermal mass measuring approximately 3.9 x 3.9 x 5.9 cm with significant mass effect of the subdermal tissue seen with a lesser effect on the subadjacent tendons but no definitive extension into the subjacent musculature or tendons with most recent evaluation noted 07/04/[address] with Dr. Cuba who presents to the [facility] ED on 09/04/2024 with history of feeling poorly with general malaise for at least 1 month and prior to this ongoing fatigue over the last 4 to 5 months with increased recent 1 week history of polyuria, polydipsia with outpatient labs notable for elevated blood sugar of at least 500 with physician recommendation to present to the ED for evaluation. She does states she is following with an oncologist and says that at the [facility] but it does not appear to be a local [place] physician and it potentially is main campus but uncertain. She states she does have a history of diabetes but has not been taking any of her medications even having been in the past on insulin. She is noncompliant with her medications per several chart review histories. Workup in the ED included T98, heart rate 105, BP 109/70, respiratory rate 16, 93% room air, CBC with WC 11.3, he 1 10.7, MCV 83.1, platelet 245 with left shift, VBG with pH 7.49, bicarb 32, total CO2 34, O2 74% on room air, BMP with sodium 125, chloride 90, BUN/creatinine 14/0.67, GFR 96, glucose 388, unremarkable b-hydroxybutyric, urinalysis noted to be cloudy, specific gravity 1.010, protein 15, glucose 1000, ketone negative, occult blood 25 with no marked urine RBCs or WBCs. In the ED patient ministered 1 L normal saline as well as insulin lispro 14 units subcu x 1. [facility] Medical History History of pneumonia History of diabetes mellitus History of cancer Endocarditis port placement HTN (hypertension) DLBCL (diffuse large B cell lymphoma) Neck mass Diabetes COPD (chronic obstructive pulmonary disease) Tobacco use disorder History of personality disorder Allergy/AdvReac Type Severity Reaction Status Date / Time acetaminophen (From Vicodin) Allergy Severe Swelling Verified 09/04/24 22:10 hydrocodone bitartrate (From Allergy Severe Swelling Verified 09/04/24 22:10 Vicodin) Family History Mother Brain cancer Father Throat cancer Surgical History History of lymph node biopsy History of colonoscopy History of esophagogastroduodenoscopy (EGD) Status post myringotomy with insertion of tube History of section Social History household members: none Smoking Status: Light Smoker (<10/day) quit status: considering quitting alcohol intake: current alcohol intake frequency: holidays/special occasions only substance use type: other details: Methamphetamine/cocaine/smita abis noted previously. additional social history: pt admits to vaping, using marijuana use, edibles, aspirin and ibuprofen ROS ROS Narrative Admission Review of Systems: CONSTITUTIONAL: No weight loss, fever, chills, + weakness or fatigue. HEENT: Eyes: No visual loss, blurred vision, double vision or yellow sclerae. Ears, Nose, Throat: No hearing loss, sneezing, congestion, runny nose or sore throat. SKIN: No rash or itching, + significant left forearm lesion which has been growing for several months, following with plastic surgery and oncology, consistent with cancer. CARDIOVASCULAR: No chest pain, chest pressure or chest discomfort, palpitations, edema, orthopnea, syncopal events. RESPIRATORY: No shortness of breath, cough or sputum, wheezing, hemoptysis. GASTROINTESTINAL: + Decreased appetite. No nausea, vomiting or diarrhea, abdominal pain, melena, BRBPR. GENITOURINARY: No dysuria, frequency, urgency or (more content not included)... Normal [facility] HbA1c (Bld)on 09-04-2024 Average glucose Estimated from glycated hemoglobin (Bld) [Mass/Vol] 272 mg/dL Normal [facility] Comment on above: Order Comment: Speci men Type: BLOOD SPECIMENOrdering Facility: [facility] Address: [address] [place] [address] Result Comment: eAG: (Estimated average glucose) is a calculated value from HgbA1c and is help desk representative of the average blood glucose level in the last 2-3 month period. Performed By: #### 5 5454-3 ####[facility] LAB[facility]IA [id number] [place] [address] [place] HbA1c (Bld) [Mass fraction] 11.1 % High 4.3-5.6 [facility] Comment on above: Order Comment: Speci men Type: BLOOD SPECIMENOrdering Facility: [facility] Address: [address] [place] [address] Result Comment: [place] Diabetes Association guidelines indicate that patients with HgbA1c in the range 5.7-6.4% are at increased risk for development of diabetes, and intervention by lifestyle modification may be beneficial. HgbA1c greater or equal to 6.5% is considered diagnostic of diabetes. Performed By: #### 5 5454-3 ####[facility] LABIA [id number] [address] [place] Hematocrit Auto (Bld) [Volum e fraction]Ordered By: Ramez Nuñez on 09-04-2024 Hematocrit (Bld) [Volume fraction] 30.9 % Low 37-47 [facility] Hemoglobin measurementOrdere d By: Ramez Nuñez on 09-04-2024 Hemoglobin (Bld) [Mass/Vol] 10.7 g/dL Low 12.0-15.0 [facility] Immature granulocytes/100 WB C Auto (Bld)Ordered By: Ramez Nuñez on 09-04-2024 Immature granulocytes/100 WBC (Bld) 0.500 % 0.0-0.9 [facility] Comment on above: IG% - Immature Granu locytes (promyelocytes, myelocytes and metamyelocytes) > 1% indicates that a LEFT SHIFT is Present. Ketones Test strip Ql (U)Ord ered By: Ramez Nuñez on 09-04-2024 Ketones Ql (U) Negative Negative [facility] L501.6901on 09-04-2024 BETA-HYDROXYBUT 0.1 mmol/L Normal 0.0-0.3 [facility] Comment on above: Performed By: #### L 9000.0810 #### [facility] [address] [place], [address] Lymphocytes Auto (Unsp spec) [#/Vol]Ordered By: Ramez Nuñez on 09-04-2024 Lymphocytes (Bld) [#/Vol] 1.37 10*3/uL 0.83-4.51 [facility] Lymphocytes/100 WBC Auto (Un sp spec)Ordered By: Ramez Nuñez on 09-04-2024 Lymphocytes/100 WBC (Bld) 12.1 % Low 19-41 [facility] MCV (mean corpuscular volume ) determinationOrdered By: Ramez Nuñez on 09-04-2024 MCV (RBC) [Entitic vol] 83.1 fL 81-99 [facility] Magnesium (Unsp spec) [Mass/ Vol]Ordered By: Isabel Pelaez on 09-04-2024 Magnesium [Mass/Vol] 1.7 mg/dL 1.5-2.2 [facility] Mean corpuscular hemoglobin (MCH) determinationOrdered By: Ramez Nuñez on 09-04-2024 MCH (RBC) [Entitic mass] 28.8 pg 27.0-32.0 [facility] Mean corpuscular hemoglobin concentration (MCHC) determinationOrdered By: Ramez Nuñez on 09-04-2024 MCHC (RBC) [Mass/Vol] 34.6 g/dL 32-36 [facility] Mean platelet volume determi nationOrdered By: Ramez Nuñez on 09-04-2024 Platelet mean volume (Bld) [Entitic vol] 9.9 fL 6.2-12.0 [facility] Microscopic analysis of urin e for red blood cells (RBC)Ordered By: Ramez Nuñez on 09-04-2024 Urine RBC 0-5 SEEN /hpf 0-5 [facility] Monocyte percentageOrdered B y: Ramez Nuñez on 09-04-2024 Monocytes/100 WBC (Bld) 6.7 % 0-10 [facility] Mucus LM Ql (Urine sed)Order ed By: Ramez Nuñez on 09-04-2024 Mucus Ql (Urine sed) 0 SEEN /hpf [facility] Neutrophil percentageOrdered By: Ramez Nuñez on 09-04-2024 Neutrophils/100 WBC (Bld) 78.4 % High 47-70 [facility] Nitrite Test strip Ql (U)Ord ered By: Ramez Nuñez on 09-04-2024 Nitrite Ql (U) Negative Negative [facility] No Panel InformationOrdered By: Ramez Nuñez on 09-04-2024 Blood Gas Sample Site Not entered [facility] Blood Gas Specimen Type ZONIA [facility] Oxygen Delivery Device Room Air [facility] Beta-Hydroxybutyric Acid mmol/L 0.1 mmol/L 0.0-0.3 [facility] Nucleated red blood cell per centageOrdered By: Ramez Nuñez on 09-04-2024 Nucleated RBC/100 WBC (Bld) [Ratio] 0 % 0-5 [facility] Oxygen (BldV) [Partial press ure]Ordered By: Ramez Nuñez on 09-04-2024 Venous Blood Partial Pressure O2 36 mmHg 25-40 [facility] Platelet countOrdered By: Melissa Nuñez on 09-04-2024 Platelets (Bld) [#/Vol] 245 10*3/uL 150-450 [facility] Potassium (Unsp spec) [Mass/ Vol]Ordered By: Ramez Nuñez on 09-04-2024 Potassium [Moles/Vol] 4.6 mmol/L 3.3-5.1 [facility] Comment on above: Hemolysis present, R esults could be affected. Protein Test strip Ql (U)Ord ered By: Ramez Nuñez on 09-04-2024 Protein Ql (U) 15 mg/dl High Negative [facility] RBC Auto (Bld) [#/Vol]Ordere d By: Ramze Nuñez on 09-04-2024 RBC (Bld) [#/Vol] 3.72 10*6/uL Low 4.2-5.4 [facility] Serum creatinine measurement (mass/volume)Ordered By: Ramez Nuñez on 09-04-2024 Creatinine [Mass/Vol] 0.68 mg/dL Low 0.70-1.20 [facility] Serum glucose measurement (m ass/volume)Ordered By: Ramez Nuñez on 09-04-2024 Glucose [Mass/Vol] 388 mg/dL High 70-99 [facility] Serum or plasma calcium kathleen urement (mass/volume)Ordered By: Ramez Nuñez on 09-04-2024 Calcium [Mass/Vol] 8.6 mg/dL 7.6-11.0 [facility] Serum or plasma urea nitroge n measurement (mass/volume)Ordered By: Ramez Nuñez on 09-04-2024 Urea nitrogen [Mass/Vol] 14 mg/dL 4-19 [facility] Serum phosphorus measurement Ordered By: Isabel Pelaez on 09-04-2024 Phosphorus Level 2.7 mg/dL 2.7-4.5 [facility] Sodium levelOrdered By: Timo Nuñez on 09-04-2024 Sodium [Moles/Vol] 125 mmol/L Low 133-145 [facility] Urinalysis, Completeon 09-04 BACTERIA 1+ /hpf Normal None Seen [facility] Comment on above: Order Comment: MARLEY CTOR TO SPECIFY Performed By: #### L 400.0001 #### [facility] [address] [place], [address] RBC 0-5 SEEN Normal 0-5 [facility] Comment on above: Order Comment: MARLEY CTOR TO SPECIFY Performed By: #### L 400.0001 #### [facility] [address] [place], [address] WBC 0-5 SEEN Normal 0-5 [facility] Comment on above: Order Comment: MARLEY CTOR TO SPECIFY Performed By: #### L 400.0001 #### [facility] [address] [place], [address] BILIRUBIN URINE Negative Normal Negative [facility] Comment on above: Order Comment: MARLEY CTOR TO SPECIFY Performed By: #### L 400.0001 #### [facility] [address] [place], [address] Clarity (U) Sl. Cloudy Normal Clear [facility] Comment on above: Order Comment: MARLEY CTOR TO SPECIFY Performed By: #### L 400.0001 #### [facility] [address] [place], [address] Color (U) Yellow Normal Yellow [facility] Comment on above: Order Comment: COLLE CTOR TO SPECIFY Performed By: #### L 400.0001 #### [facility] [address] [place], [address] GLUCOSE, UR 1000 mg/dl Abnormal Normal [facility] Comment on above: Order Comment: COLLE CTOR TO SPECIFY Performed By: #### L 400.0001 #### [facility] [address] [place], [place], [facility] KETONE UR Negative Normal Negative [facility] Comment on above: Order Comment: COLLE CTOR TO SPECIFY Performed By: #### L 400.0001 #### [facility] [address] [place], [facility] LEUK ESTERASE Negative Normal Negative [facility] Comment on above: Order Comment: MARLEY CTOR TO SPECIFY Performed By: #### L 400.0001 #### [facility] [address] [place] [address] Nitrite Ql (U) Negative Normal Negative [facility] Comment on above: Order Comment: MARLEY CTOR TO SPECIFY Performed By: #### L 400.0001 #### [facility] [address] [place], [facility] OCCULT BLOOD-UR 25 /ul Abnormal Negative [facility] Comment on above: Order Comment: MARLEY CTOR TO SPECIFY Performed By: #### L 400.0001 #### [facility] [address] [place], [facility] pH UR 7.0 Normal 5.0 - 8.0 [facility] Comment on above: Order Comment: MARLEY CTOR TO SPECIFY Performed By: #### L 400.0001 #### [facility] [address] [place] [address] PROT DIPSTX 15 mg/dl Abnormal Negative [facility] Comment on above: Order Comment: MARLEY CTOR TO SPECIFY Performed By: #### L 400.0001 #### [facility] [address] [place] [address] SP.GR. DIPSTX 1.010 Normal 1.002-1.03 0 [facility] Comment on above: Order Comment: MARLEY CTOR TO SPECIFY Performed By: #### L 400.0001 #### [facility] [address] [place], [address] UROBILI Normal Normal Normal [facility] Comment on above: Order Comment: MARLEY CTOR TO SPECIFY Performed By: #### L 400.0001 #### [facility] [address] [place], [address] EPI,SQUAMOUS 0 SEEN Normal 5-10 [facility] Comment on above: Order Comment: MARLEY CTOR TO SPECIFY Performed By: #### L 400.0001 #### [facility] [address] [place], [address] Mucus Ql (Urine sed) 0 SEEN Normal [facility] Comment on above: Order Comment: MARLEY CTOR TO SPECIFY Performed By: #### L 400.0001 #### [facility] [address] [place], [address] Urine blood detectionOrdered By: Ramez Nuñez on 09-04-2024 Urine Occult Blood 25 /ul High Negative [facility] Urine clarityOrdered By: Aracelis Nuñez on 09-04-2024 Clarity (U) Sl. Cloudy Clear [facility] Urine color determinationOrd ered By: Ramez Nuñez on 09-04-2024 Color (U) Yellow Yellow [facility] Urine leukocyte esterase det ection by dipstickOrdered By: Ramez Nuñez on 09-04-2024 Leukocyte esterase Test strip Ql (U) Negative Negative [facility] Urine pHOrdered By: Ramez Nuñez on 09-04-2024 pH (U) 7.0 [pH] 5.0 - 8.0 [facility] Urine sediment bacteria coun t by microscopy (number/high power field)Ordered By: Ramez Nuñze on 09-04-2024 Bacteria LM.HPF (Urine sed) [#/Area] 1 /[HPF] None Seen [facility] Urine specific gravity measu rementOrdered By: Ramez Nuñez on 09-04-2024 Specific gravity (U) [Rel density] 1.010 1.002-1.03 0 [facility] Urobilinogen Ql (U)Ordered B y: Ramez Nuñez on 09-04-2024 Urine Urobilinogen Normal mg/dl Normal [facility] Venous Blood Gason 5 Blood Gas Type OZNIA Normal [facility] Comment on above: Performed By: #### L 9000.0810 #### [facility] [address] [place], [address] CO2 [Moles/Vol] 34 mmol/L High 23-33 [facility] Comment on above: Performed By: #### L 9000.0810 #### [facility] [address] [place], [address] HCO3 (Bld) [Moles/Vol] 32 mmol/L High 22-26 [facility] Comment on above: Performed By: #### L 9000.0810 #### [facility] [address] [place], [address] O2 Delivery Dev Room Air Normal [facility] Comment on above: Performed By: #### L 9000.0810 #### [facility] [address] [place], [address] SITE Not entered [facility] Comment on above: Performed By: #### L 9000.0810 #### [facility] [address] [place], [address] VBG BE 9 mmol/L High -1.0-3.5 [facility] Comment on above: Performed By: #### L 9000.0810 #### [facility] [address] [place], [address] VBG pCO2 42.5 mmHg Normal 41-51 [facility] Comment on above: Performed By: #### L 9000.0810 #### [facility] [address] [place], [place], [address] VBG pH 7.49 High 7.32-7.42 [facility] Comment on above: Performed By: #### L 9000.0810 #### [facility] [address] [place], [place], [address] VBG PO2 36 mmHg Normal 25-40 [facility] Comment on above: Performed By: #### L 9000.0810 #### [facility] [address] [place], [place], [address] VBG SO2 74 High 50-70 [facility] Comment on above: Performed By: #### L 9000.0810 #### [facility] [address] [place], [place], [address] Venous blood bicarbonate bryan surementOrdered By: Ramez Nuñez on 09-04-2024 HCO3 (Bld) [Moles/Vol] 32 mmol/L High 22-26 [facility] Venous blood oxygen saturati on measurementOrdered By: Ramez Nuñez on 09-04-2024 Oxygen saturation in Blood 74 % High 50-70 [facility] White blood cell (WBC) count Ordered By: Ramez Nuñez on 09-04-2024 WBC (Bld) [#/Vol] 11.3 10*3/uL High 4.4-11.0 [facility] White blood cell countOrdere d By: Ramez Nuñez on 09-04-2024 Urine WBC 0-5 SEEN /hpf 0-5 [facility] pH (BldV)Ordered By: Ramez Nuñez on 09-04-2024 Venous Blood pH 7.49 High 7.32-7.42 [facility] CNOVon 08-30-2024 CNOV Normal [facility] CNOVSPon 08-30-2024 CNOVSP Normal [facility] CNPNon 08-30-2024 CNPN Normal [facility] CNPNon 08-20-2024 CNPN [facility] CNOVon 08-16-2024 CNOV Normal [facility] FLOW CYTOMETRY FOR LEUKEMIA/ LYMPHOMA (FCLL) PERFORMABLEon 08-16-2024 FLOW CYTOMETRY ORDER STATUS Results will be reported under F case ID when completed Normal [facility] Comment on above: Order Comment: Speci men Type: TISSUE SPECIMENOrdering Facility: [facility] Address: [address] [place] [address] Performed By: #### F CLLP ####[facility] LAB[facility]IA [id number] [place] [address] [place] FLOW CYTOMETRY FOR LEUKEMIA/ LYMPHOMA (FCLL) REFLEXon 08-16-2024 DIAGNOSIS COMMENT Normal [facility] Comment on above: Order Comment: Speci men Type: TISSUE SPECIMENOrdering Facility: [facility] Address: [address] [place] [address] Result Comment: This test was developed and its performance characteristics determined by [facility] [place] ([facility]). It has not been cleared or approved by the FDA. [facility] is regulated under CLIA as qualified to perform high-complexity testing. This test is used for clinical purposes. It should not be regarded as investigational or for research. Performed By: #### F CLLRFLX ####[facility] LABCLIA [id number] [place] [address] [place] FINAL PERFORMING LAB Normal [facility] Comment on above: Order Comment: Speci men Type: TISSUE SPECIMENOrdering Facility: [facility] Address: [address] [place] [address] Result Comment: Diag nostic interpretation performed at [facility], [address] [place] [address] CLIA# [id number] Director: Jean Davis M.D. Performed By: #### F CLLRFLX ####[facility] LABCLIA [id number] [place] [id number] [place] FLOW CYTOMETRY RESULTS Normal [facility] Comment on above: Order Comment: Speci men Type: TISSUE SPECIMENOrdering Facility: [facility] Address: [address] [place] [address] Result Comment: Spec imen type: Soft tissue mass biopsyMorphology comments: See associated surgical pathology report [id number]: n/aLymphocyte gate: 2% of total eventsA limited flow cytometric analysis was performed on the soft tissue mass biopsy due to low cell yield. Antibodies to CD5, CD10, CD19, CD20, CD23, CD45, CD123, CD200, and kappa and lambda light chains were used. This shows that 2% of total events have the CD45 and side scatter properties of lymphocytes. The lymphocytes are composed of T-cells (100%) and virtually no B-cells. Performed By: #### F CLLRFLX ####[facility] LABCLIA [id number] [place] [address] [place] GROSS DESCRIPTION Normal [facility] Comment on above: Order Comment: Speci men Type: TISSUE SPECIMENOrdering Facility: [facility] Address: [address] [place] [address] Result Comment: A. S oft Tissue, Mass, BiopsyReceived 1 piece; 0.5 x 0.3 x 0.1 cm. Performed By: #### F CLLRFLX ####[facility] LABCLIA [id number] [place] [address] [place] INTERPRETATION Normal [facility] Comment on above: Order Comment: Speci men Type: TISSUE SPECIMENOrdering Facility: [facility] Address: [address] [place] [address] Result Comment: Ther e is no immunophenotypic evidence of involvement by a lymphoproliferative disorder in this limited sample. Correlation with the clinical findings is suggested.OVN/PXC 08/17/24 at 1453 EST Performed By: #### F CLLRFLX ####[facility] LABCLIA [id number] [place] [id number] [place] No Panel Informationon 08-16 IMPRESSION: Distal forearm soft tissue mass without acute osseous abnormality. Junior Net Developer: LIZZIE Transcribe Date/Time: Aug 16 2024 11:58A Dictated by : TRACY CALVO MD This examination was interpreted and the report reviewed and electronically signed by: DARRYN APONTE MD on Aug 16 2024 12:22PM [facility] DIVISION OF RADIOLOGY Radiology Study observation (narrative) [facility] No Panel InformationOrdered By: Ccf Provider on 08-16-2024 [facility] Pathology biopsy report Hira (Tiss)on 08-16-2024 AP DISCLAIMER Normal [facility] Comment on above: Order Comment: Speci men Type: TISSUE SPECIMENOrdering Facility: [facility] Address: [address] [place] [address] Result Comment: fOelia christensen Developed Test (LDT) Disclaimer:Performance characteristics of immunohistochemical, immunofluorescent, and chromogenic in-situ hybridization tests have been determined by the performing laboratory within [facility]'s [facility] Pathology and Laboratory Medicine Department ([facility], [facility], [facility], [facility], [facility], [facility], or [facility]) in a manner consistent with CLIA requirements. One or more of these tests may not have been cleared or approved by the FDA. [facility] is regulated under CLIA as qualified to perform high-complexity testing. These tests are used for clinical purposes. These should not be regarded as investigational or for research. Positive and negative controls stain appropriately. Performed By: #### 6 6121-5 ####[facility] LABCLIA [id number] [place] [id number] [place] CASE REPORT Normal [facility] Comment on above: Order Comment: Speci men Type: TISSUE SPECIMENOrdering Facility: [facility] Address: [address] [place] [address] Result Comment: Surg ical Pathology Report Case: [id number] Provider: Tiffanie Avila MD Collected: 08/16/2024 12:29 PMOrdering Location: Orthopaedics Received: 08/16/2024 07:30 PMPathologist: Cesar Jewell MD, PhDSpecimens: A) - Soft Tissue, Mass, Biopsy, A: left forearm (fresh) B) - Soft Tissue, Mass, Biopsy, B: left forearm (formalin) Performed By: #### 6 6121-5 ####[facility] LABCLIA [id number] [address] STATES OF [facility] CLINICAL HISTORY fungating left forearm mass Normal [facility] Comment on above: Order Comment: Speci men Type: TISSUE SPECIMENOrdering Facility: [facility] Address: [address] [place] [address] Performed By: #### 6 6121-5 ####[facility] LABCLIA [id number] OF [facility] FINAL DIAGNOSIS Normal [facility] Comment on above: Order Comment: Speci men Type: TISSUE SPECIMENOrdering Facility: [facility] Address: [address] [place] [address] Result Comment: A. S kin, left forearm, biopsy:- Squamous cell carcinoma, invasive and well differentiated.B. Skin, left forearm, biopsy:- Squamous cell carcinoma, invasive and well differentiated.AF/bs 08/17/2024 at 1727 EST Performed By: #### 6 6121-5 ####[facility] LABCLIA [id number] [address] FINAL PERFORMING LAB Normal [facility] Comment on above: Order Comment: Speci men Type: TISSUE SPECIMENOrdering Facility: [facility] Address: [address] [place] [address] Result Comment: Diag nostic interpretation performed at: [facility], [address] [place] [address], [facility] [place] [id number] CLIA# [id number] Director: Jean Davis MD Performed By: #### 6 6121-5 ####[facility] [id number] [place] [address] [place] GROSS DESCRIPTION Normal [facility] Comment on above: Order Comment: Speci men Type: TISSUE SPECIMENOrdering Facility: [facility] Address: [address] [place] [address] Result Comment: A. S oft Tissue, Mass, BiopsyReceived fresh labeled left forearm (fresh) are 2 fragments of of punch biopsy, the first measuring 0.7 x 0.4 x 0.4 cm and the second measuring 0.4 x 0.3 x 0.2 cm. A portion of the 0.7 cm fragment is submitted in RPMI. The remainder of the specimen is submitted in formalin in cassette A1. Gross examination performed at [facility], [address] [place] [address] [id number] 08/16/24 8:48 PMB. Soft Tissue, Mass, BiopsyReceived in formalin labeled left forearm (formalin) are 2 fragments of webb punch biopsy, the first measuring 0.5 x 0.5 x 0.4 cm and the second measuring by 0.2 cm. The specimen is entirely submitted in cassette B1. Gross examination performed at [facility], [address] [place] [address] [id number] 08/16/24 8:51 PM Performed By: #### 6 6121-5 ####[facility] [id number] [place] [id number] [place] XR FOREARM 2V AP/LAT LTon XR FOREARM 2V AP/LAT LT Normal [facility] XR Radius and Ulna - left AP and Lateralon 08-16-2024 * * *Final Report* * * DATE OF EXAM: Aug 16 2024 11:32AM AOX [id number] - XR FOREARM 2V AP/LAT LT / PROCEDURE REASON: Localized superficial swelling, mass, or lump * * * * Physician Interpretation * * * * EXAMINATION / TECHNIQUE: XR WRIST 3V PA/LAT/OBL LT, XR FOREARM 2V AP/LAT LT PATIENT/TECHNOLOGIST PROVIDED HISTORY: Large growth at the Left forearm/posterior aspect. CLINICAL INFORMATION ( PROVIDED BY ORDERING CLINICIAN) : Localized superficial swelling, mass, or lump COMPARISON: MRI 07/29/2024 RESULT: 6.3 x 2.4 cm soft tissue mass along the dorsal aspect of the distal forearm, corresponding with superficial mass on 07/29/2024 MRI. No adjacent bony erosions or periosteal reaction. No soft tissue mineralization/calcification . No fracture or dislocation. Severe first CMC osteoarthritis. DIVISION OF RADIOLOGY Provider, [facility] - 08/16/2024 * * *Final Report* * * DATE OF EXAM: Aug 16 2024 11:32AM AOX 5341 - XR FOREARM 2V AP/LAT LT / PROCEDURE REASON: Localized superficial swelling, mass, or lump * * * * Physician Interpretation * * * * EXAMINATION / TECHNIQUE: XR WRIST 3V PA/LAT/OBL LT, XR FOREARM 2V AP/LAT LT PATIENT/TECHNOLOGIST PROVIDED HISTORY: Large growth at the Left forearm/posterior aspect. CLINICAL INFORMATION ( PROVIDED BY ORDERING CLINICIAN) : Localized superficial swelling, mass, or lump COMPARISON: MRI 07/29/2024 RESULT: 6.3 x 2.4 cm soft tissue mass along the dorsal aspect of the distal forearm, corresponding with superficial mass on 07/29/2024 MRI. No adjacent bony erosions or periosteal reaction. No soft tissue mineralization/calcification . No fracture or dislocation. Severe first CMC osteoarthritis. IMPRESSION IMPRESSION: Distal forearm soft tissue mass without acute osseous abnormality. Junior Net Developer: [facility] Transcribe Date/Time: Aug 16 2024 11:58A Dictated by : TRACY CALVO MD This examination was interpreted and the report reviewed and electronically signed by: DARRYN APONTE MD on Aug 16 2024 12:22PM EST [facility] XR WRIST 3V PA/LAT/OBL LTon 08-16-2024 XR WRIST 3V PA/LAT/OBL LT Normal [facility] XR Wrist - left PA and Later al and Obliqueon 08-16-2024 * * *Final Report* * * DATE OF EXAM: Aug 16 2024 11:32AM AOX 5270 - XR WRIST 3V PA/LAT/OBL LT / PROCEDURE REASON: Localized superficial swelling, mass, or lump * * * * Physician Interpretation * * * * EXAMINATION / TECHNIQUE: XR WRIST 3V PA/LAT/OBL LT, XR FOREARM 2V AP/LAT LT PATIENT/TECHNOLOGIST PROVIDED HISTORY: Large growth at the Left forearm/posterior aspect. CLINICAL INFORMATION ( PROVIDED BY ORDERING CLINICIAN) : Localized superficial swelling, mass, or lump COMPARISON: MRI 07/29/2024 RESULT: 6.3 x 2.4 cm soft tissue mass along the dorsal aspect of the distal forearm, corresponding with superficial mass on 07/29/2024 MRI. No adjacent bony erosions or periosteal reaction. No soft tissue mineralization/calcification . No fracture or dislocation. Severe first CMC osteoarthritis. DIVISION OF RADIOLOGY Provider, [facility] - 08/16/2024 * * *Final Report* * * DATE OF EXAM: Aug 16 2024 11:32AM AOX 5270 - XR WRIST 3V PA/LAT/OBL LT / PROCEDURE REASON: Localized superficial swelling, mass, or lump * * * * Physician Interpretation * * * * EXAMINATION / TECHNIQUE: XR WRIST 3V PA/LAT/OBL LT, XR FOREARM 2V AP/LAT LT PATIENT/TECHNOLOGIST PROVIDED HISTORY: Large growth at the Left forearm/posterior aspect. CLINICAL INFORMATION ( PROVIDED BY ORDERING CLINICIAN) : Localized superficial swelling, mass, or lump COMPARISON: MRI 07/29/2024 RESULT: 6.3 x 2.4 cm soft tissue mass along the dorsal aspect of the distal forearm, corresponding with superficial mass on 07/29/2024 MRI. No adjacent bony erosions or periosteal reaction. No soft tissue mineralization/calcification . No fracture or dislocation. Severe first CMC osteoarthritis. IMPRESSION IMPRESSION: Distal forearm soft tissue mass without acute osseous abnormality. Junior Net Developer: [facility] Transcribe Date/Time: Aug 16 2024 11:58A Dictated by : TRACY CALVO MD This examination was interpreted and the report reviewed and electronically signed by: DARRYN APONTE MD on Aug 16 2024 12:22PM [facility] Upper Ext No Joint W/WO Cont on 07-29-2024 Upper Ext No Joint W/WO Cont [facility] [address] [place] [address] [id number] Upper Ext No Joint W/WO Cont MR#: [id number] Acct: [id number] Name: DOREEN DENISE Rep #: [id number] : 1960 F 64 From: Sharon Caal PCP: Care Physician,No Primary Status: REG CLI Study: Upper Ext No Joint W/WO Cont Date of Exam: Exam# [id number] Ordering Dr: Brigette Cuba MD ADDENDUM by Dr. Sharon Redd MD on 08/06/24 at 1429 Contrast dose: Clariscan 12 mL intravenous. Reading Location: [id number] 08/06/24 1429 Date cc: Dr. 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 TECHNIQUE: MRI of the distal left forearm, without and with contrast. COMPARISON: None provided. FINDINGS In the distal left forearm, a large dorsal/radial inhomogeneously enhancing lobulated dermal mass dorsal/radial is seen, measured at approximately 3.9 x 3.9 x 5.9 cm. Significant mass effect of the subdermal tissues is seen, with lesser degree of mass effect on the subjacent tendons, but no definitive extension into the subjacent musculature or tendons is clearly identified. No underlying osseous signal changes are seen. No joint effusion is evident. Visualized portions of the carpal tunnel are unremarkable. MRI/Upper Ext No Joint W/WO Cont IMPRESSION: Large inhomogeneously enhancing lobulated dermal mass, as described. Reading Location: [id number] CC: Dr. Brigette Cuba MD; No Primary Care Physician Junior Net Developer: Signed Normal [facility] Plastic Surgery Visit Report on 07-04-2024 Plastic Surgery Visit Report [facility] Plastic Reconstructive Surgery [address] [place] [address], [address] [place] [address] OFFICE VISIT Date of Service: 07/04/24 MR#: [id number] Acct: [id number] Name: DOREEN DENISE Rep #: [id number] : 1960 Provider: Dr. Brigette sanchez MD Age/Sex: 64/F Location: [facility] Status: Signed Intake Vital Signs 10/13/23 18:18 07/04/24 13:47 Height 5 ft 7 in 5 ft 7 in Weight: 136 lb BMI 21.2 BP 147/87 H Blood Pressure Location Rt brachial Position Sitting Respiration 18 Pulse 105 H Temp 97.9 F Temp Source Oral Pulse Oximetry (%) 96 Oxygen Delivery Method room air Intake Visit Reasons: L WRIST LESION Chief Complaint: left wrist lesion Accompanied by: Friend Is patient in pain?: Yes (01/27) Allergies acetaminophen (From Vicodin) Allergy (Severe, Verified 10/13/23 18:18) Swelling hydrocodone bitartrate (From Vicodin) Allergy (Severe, Verified 10/13/23 18:18) Swelling Medications ???Medication ???Instructions ???Recorded ???Confirmed ???Type albuterol sulfate 90 mcg/actuation 1 - 2 puff inhalation Q4H PRN PRN 03/22/13 07/04/24 Rx aerosol inhaler Wheezing ##1 Have you fallen in the past year?: No Nurse's Note: pt here for evaluation of lesion on left wrist PFSH Medical History (Updated 07/04/24 @ 14:[address] Brigette Cuba MD) History of pneumonia History of diabetes mellitus History of cancer Endocarditis port placement HTN (hypertension) DLBCL (diffuse large B cell lymphoma) Neck mass Diabetes COPD (chronic obstructive pulmonary disease) Tobacco use disorder History of personality disorder Surgical History History of lymph node biopsy History of colonoscopy History of esophagogastroduodenoscopy (EGD) Status post myringotomy with insertion of tube History of section Family History Mother Brain cancer Father Throat cancer Social History (Updated 07/04/24 @ 13:47 by Shannan Caldera) Smoking Status: Current every day smoker tobacco type: cigarettes quit status: considering quitting additional social history: pt admits to vaping, using marijuana use, edibles, aspirin and ibuprofen HPI L WRIST LESION Details: Doreen comes in with a 4-month history of an enlarging mass on her left arm. She states it is tender. Her medical history is significant for a lymphoma in the past which was treated. She is under the understanding that she is cancer free. She attends the appointment with her sister who verifies the history of the tumor presence for the past 4 months. She states she does not currently have a primary care provider. She denies use of drugs including amphetamines and cocaine. She admits to occasional marijuana use and nicotine use. ROS General General: Yes good health; No fatigue, fever(s) or weight loss HENMT HENMT: No rhinitis, sore throat/mouth sore, nasal congestion, contacts or glaucoma Endo Endocrine: No thyroid disease, polydipsia, heat intolerance, cold intolerance, hepatitis or excessive urine Skin Skin: No Bleeding, bruising, changing moles or suspicious lesion Musc Musculoskeletal: No joint pain, joint stiffness, muscle weakness, back pain, osteoarthritis or Muscle aches/ myalgia Neuro Neurological: No headache(s), No lightheadedness and No numbness Cardio Cardiovascular: No chest pain, pacemaker, fatigue or shortness of breat with exertion Psych Psychiatric: No depression, claustrophobia or anxiety Resp Respiratory: No spitting up, shortness of breath, sleep apnea, asthma, emphysema, TB, Cough or Smoker Gastro Gastrointestinal: No diarrhea, constipation, blood in stool, nausea, vomiting or abdominal bloating Gibran Hematologic: No anemia, No bleeding and No abnormal bleeding Genitourinary: No urinary frequency, blood in urine or incontinence Exam Details Patient attends the appointment with her sister. She is noted to have choreoathetoid???like movements throughout the appointment. There appears to be yellow discoloration in her face along the malar areas in her upper forehead?the patient denies any history of falls or trauma. 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 This projects 1 to 2 cm above the surface. It has some clear drainage and is not ulcerated. It does not appear to be fixed to the underlying tissue nor does it move with flexion and extension of the wrist or fingers. There are no palpable epitrochlear or axillary masses. She will need to have a complete evaluation by a primary care provider including blood work to assess her health status. We will also order an MRI of her arm with and without contrast to assess the extent of (more content not included)... Normal [facility] CT SPINE CERVICAL W/O CONTRA Alfred 10-13-2023 CT SPINE CERVICAL W/O CONTRAST ORIGINAL EXAMINATION: CT OF THE CERVICAL SPINE WITHOUT CONTRAST10/13/2023 9:[address] CERVICAL SPINE WITHOUT CONTRAST TECHNIQUE: CT of the cervical spine was performed without the administration of intravenous contrast. Multiplanar reformatted images are provided for review. Automated exposure control, iterative reconstruction, and/or weight based adjustment of the mA/kV was utilized to reduce the radiation dose to as low as reasonably achievable. COMPARISON: None available HISTORY: ORDERING SYSTEM PROVIDED HISTORY: Reason for Exam: pt states having RT sided neck pain x3days. INJURY FINDINGS: The cervical vertebral bodies are in normal alignment without acute fracture or subluxation. The vertebral body heights are maintained. There is a decrease within the C5-C6 and C6-C7 disc space heights with adjacent endplate hypertrophy. The paraspinal soft tissues are within normal limits. 6 mm nodule right upper lobe. IMPRESSION: 1. No acute osseous injury. 2. Moderate degenerative changes worst at C5-C6. 3. Right solid pulmonary nodule within the upper lobe measuring 6 mm. Per Fleischner Society Guidelines, recommend a non-contrast Chest CT at 6-12 months. If patient is high risk for malignancy, consider an additional non-contrast Chest CT at 18-24 months. If patient is low risk for malignancy, non-contrast Chest CT at 18-24 months is optional. These guidelines do not apply to immunocompromised patients and patients with cancer. Follow up in patients with significant comorbidities as clinically warranted. For lung cancer screening, adhere to Lung-RADS guidelines. Reference: Radiology. 2017; 284(1):228-43. Interpreted by: Sharon Perera MD Preliminary Report By: Sharon Perera MD Electronically signed By Sharon Perera MD Dictated Date: 10/13/2023 9:07:38 PM Prelim Date: 10/13/2023 9:09:32 PM Sign Date: 10/13/2023 9:09:32 PM Ordering Provider: FABRICIO SANTOS [facility] ([place] 36 04-15-2023 36 Left message on sons voicemail due to Pt phone is not in service for her to call in and get scheduled Areli Anderson COMMERCIAL SALES REPRESENTATIVE [facility] ED NOTEon 05-22-2022 ED NOTE HNO ID: [id number] Author: Rui Flowers RN Service: Emergency Medicine Author Type: Registered Nurse Type: ED Notes Filed: 05/23/2022 9:05 AM Note Text: Emergency Services: ED Call Back Questionnaire SERVICE DATE: 05/22/2022 Are you feeling better? Yes Any questions about discharge instructions and follow-up care? No Do you have any further questions? No SIGNATURE: Rui Flowers RN PATIENT NAME: Doreen Denise DATE: May 23, 2022 TIME: 9:05 AM [facility] ED NOTE HNO ID: [id number] Author: Joselin Maxwell RN Service: Emergency Medicine Author Type: Registered Nurse Type: ED Notes Filed: 05/22/2022 2:45 PM Note Text: Ears irrigated by MS BERT tolerated fair-advised with understanding [facility] ED PROV NOTEon 05-22-2022 ED PROV NOTE HNO ID: [id number] Author: Huseyin Ribera APRN.CNP Service: Emergency Medicine Author Type: Nurse Practitioner Type: ED Provider Notes Filed: 05/22/2022 2:40 PM Note Text: ED Provider Note Patient Name: Doreen Denise : 1960 SERVICE DATE: 05/22/22 History Patient presents with: Ear Pain: Right ear pain x 2 days. Denies injury. Took Ibuprofen without relief. 62-year-old female with a past medical history of chronic back pain, COPD, type 2 diabetes, hypertension, drug abuse, lumbar radiculopathy, tobacco abuse presents emergency department for complaint of severe right ear pain starting yesterday. She denies any fevers, chills, sore throat, congestion. She thinks she has an ear infection. PAST MEDICAL HISTORY Diagnosis Date Chronic bilateral low back pain with right-sided sciatica 03/17/2016 Chronic obstructive pulmonary disease (COPD) (HCC) COPD, mild (HCC) 03/17/2016 DDD (degenerative disc disease), lumbar 03/18/[address] Sorensen's notes Diabetes ([facility]) Drug abuse ([facility]) 03/23/2016 Tox screen 02/2016 showed high levels of methamphetamines and OARRS was neg for any prescription sources. Essential hypertension 05/01/2015 Radiculopathy, lumbar region 03/18/2016 Smoker 05/01/2015 Started around age 17 up to a PPD. Thoracic radiculopathy 03/18/2016 Uncontrolled type 2 diabetes mellitus without complication, with long-term current use of insulin 03/22/2016 PAST SURGICAL HISTORY Procedure Laterality Date ANESTH, SECTION BACK SURGERY HX MRSA No family history on file. Social History Tobacco Use Smoking status: Every Day Packs/day: 0.50 Types: Cigarettes Smokeless tobacco: Never Substance and Sexual Activity Alcohol use: No Drug use: No Comment: urine drug screen + amphetamines 03/17/16 Sexual activity: Not on file ALLERGIES Allergen Reactions Codeine Rash Vicodin [Hydrocodon* Rash Review of Systems Constitutional: Negative for activity change, appetite change, chills and fever. HENT: Positive for ear pain. Negative for congestion. Eyes: Negative for discharge and itching. Respiratory: Negative for chest tightness and shortness of breath. Cardiovascular: Negative for chest pain and leg swelling. Gastrointestinal: Negative for abdominal distention, nausea and vomiting. Genitourinary: Negative for dysuria and frequency. Musculoskeletal: Negative for arthralgias and back pain. Skin: Negative for color change and pallor. Neurological: Negative for dizziness and headaches. Hematological: Negative for adenopathy. Does not bruise/bleed easily. Psychiatric/Behavioral: Negative for agitation and confusion. Physical Exam Vitals [05/22/22 1323] BP Pulse Temp Temp src Resp SpO2 Weight Height 148/89 (!) 99 36.1 ?C (97 ?F) Temporal 16 99 % 63.5 kg (140 lb) 1.702 m (5' 7) Physical Exam Constitutional: General: She is in acute distress. Appearance: She is normal weight. She is not ill-appearing, toxic-appearing or diaphoretic. HENT: Head: Normocephalic and atraumatic. Right Ear: Hearing normal. There is impacted cerumen. Left Ear: Hearing normal. There is impacted cerumen. Tympanic membrane is erythematous. Nose: Nose normal. No congestion. Mouth/Throat: Mouth: Mucous membranes are moist. Pharynx: Oropharynx is clear. Eyes: Extraocular Movements: Extraocular movements intact. Conjunctiva/sclera: Conjunctivae normal. Pulmonary: Effort: Pulmonary effort is normal. No respiratory distress. Abdominal: General: Abdomen is flat. There is no distension. Musculoskeletal: General: No swelling. Normal range of motion. Skin: General: Skin is warm and dry. Capillary Refill: Capillary refill takes less than 2 seconds. Neurological: General: No focal deficit present. Mental Status: She is alert and oriented to person, place, and time. Psychiatric: Mood and Affect: Mood normal. Behavior: Behavior normal. Diagnostic Testing ED Labs Ordered and Reviewed - No data to display Procedures ED Course / Clinical Impression Clinical Impressions as of 05/22/22 1439 Non-recurrent acute suppurative otitis media of right ear without spontaneous rupture of tympanic membrane MDM / Disposition / Plan 62-year-old female with a past medical history of chronic back pain, COPD, type 2 diabetes, hypertension, drug abuse, lumbar radiculopathy, tobacco abuse presents emergency department for complaint of severe right ear pain starting yesterday. She denies any fevers, chills, sore throat, congestion. She thinks she has an ear infection. Patient had a large amount of cerumen in her ears bilaterally. Ordered Debrox eardrops and was able to remove with an ear curette a large amount of wax she appears to have a significant acute otitis on the right side. She was prescribed Augmentin as well as hydrocortisone drops for pain. She is to use the Debrox drops 4 times daily and take the antibiotic. Patient agreeab (more content not included)... Normal [facility] LABORATORYOrdered By: Adriana Tinajero on 04-25-2022 Albumin BCP dye [Mass/Vol] 3.6 G/dL Invalid Interpretation Code 3.4 - 4.8 G/dL AO ADM SS Albumin/Globulin [Mass ratio] 1.0 {ratio} Invalid Interpretation Code 1.1 - 2.5 ratio AO ADM SS ALP [Catalytic activity/Vol] 90 U/L Invalid Interpretation Code 40 - 135 U/L AO ADM SS ALT With P-5'-P [Catalytic activity/Vol] 16 U/L Invalid Interpretation Code 14 - 59 U/L AO ADM SS AST With P-5'-P [Catalytic activity/Vol] 14 U/L Invalid Interpretation Code 10 - 40 U/L AO ADM SS Basophil, Absolute 0.0 103/mcL Invalid Interpretation Code 0.0 - 0.2 10^3/mcL AO Workflow SS Basophils/100 WBC (Bld) 0.3 % Invalid Interpretation Code 0.0 - 2.5 % AO Workflow SS Bilirubin [Mass/Vol] 0.3 mg/dL Invalid Interpretation Code 0.2 - 1.0 mg/dL AO ADM SS Calcium [Mass/Vol] 9.1 mg/dL Invalid Interpretation Code 8.4 - 10.2 mg/dL AO ADM SS Chloride [Moles/Vol] 99 mmol/L Invalid Interpretation Code 98 - 107 mmol/L AO ADM SS CO2 [Moles/Vol] 36 mmol/L Invalid Interpretation Code 23 - 31 mmol/L AO ADM SS Creatinine [Mass/Vol] 0.70 mg/dL Invalid Interpretation Code 0.55 - 1.02 mg/dL AO ADM SS CRP [Mass/Vol] mg/dL Invalid Interpretation Code 0.0 - 0.9 mg/dL AO Chemistry S Electrolyte Balance 2.0 mEq/L Invalid Interpretation Code 4.0 - 15.0 mEq/L AO ADM SS Eosinophil, Absolute 0.2 103/mcL Invalid Interpretation Code 0.0 - 0.4 10^3/mcL AO Workflow SS Eosinophils/100 WBC (Bld) 2.7 % Invalid Interpretation Code 0.0 - 7.0 % AO Workflow SS Erythrocyte distribution width (RBC) [Ratio] 14.0 % Invalid Interpretation Code 11.5 - 14.5 % AO Workflow SS Globulin 3.5 G/dL Invalid Interpretation Code AO ADM SS Glucose [Mass/Vol] 278 mg/dL Invalid Interpretation Code 80 - 115 mg/dL AO ADM SS Hematocrit (Bld) [Volume fraction] 38.7 % Invalid Interpretation Code 37.0 - 47.0 % AO Workflow SS Hemoglobin (Bld) [Mass/Vol] 13.6 G/dL Invalid Interpretation Code 12.0 - 16.0 G/dL AO Workflow SS Lymphocyte, Absolute 2.2 103/mcL Invalid Interpretation Code 0.8 - 3.9 10^3/mcL AO Workflow SS Lymphocytes/100 WBC (Bld) 32.7 % Invalid Interpretation Code 10.0 - 50.0 % AO Workflow SS Magnesium [Mass/Vol] 1.7 mg/dL Invalid Interpretation Code 1.8 - 2.4 mg/dL AO ADM SS MCH (RBC) [Entitic mass] 30.4 pg Invalid Interpretation Code 27.0 - 31.2 pg AO Workflow SS MCHC 35.1 G/dL Invalid Interpretation Code 33.0 - 37.0 G/dL AO Workflow SS MCV (RBC) [Entitic vol] 86.8 fL Invalid Interpretation Code 80.0 - 94.0 fL AO Workflow SS Monocyte distribution width Auto (Bld) [Entitic vol] 17.59 Invalid Interpretation Code 0.00 - 20.00 AO Workflow SS Comment on above: Result Comment: For ED adult patients suspected of sepsis, MDW<=20.0 does not rule out sepsis or risk of sepsis Monocyte, Absolute 0.5 103/mcL Invalid Interpretation Code 0.2 - 1.0 10^3/mcL AO Workflow SS Monocytes/100 WBC (Bld) 7.5 % Invalid Interpretation Code 1.7 - 13.0 % AO Workflow SS Natriuretic peptide.B prohormone N-Terminal [Mass/Vol] 234 pg/mL Invalid Interpretation Code 0 - 125 pg/mL AO ADM SS Neutrophil, Absolute 3.8 103/mcL Invalid Interpretation Code 2.9 - 6.2 10^3/mcL AO Workflow SS Neutrophils/100 WBC (Bld) 56.8 % Invalid Interpretation Code 37.0 - 80.0 % AO Workflow SS Platelet mean volume (Bld) [Entitic vol] 7.9 fL Invalid Interpretation Code 7.4 - 10.4 fL AO Workflow SS Platelets (Bld) [#/Vol] 188 103/mcL Invalid Interpretation Code 130 - 400 10^3/mcL AO Workflow SS Potassium [Moles/Vol] 4.2 mmol/L Invalid Interpretation Code 3.5 - 5.1 mmol/L AO ADM SS Protein [Mass/Vol] 7.1 G/dL Invalid Interpretation Code 6.4 - 8.2 G/dL AO ADM SS RBC (Bld) [#/Vol] 4.46 106/mcL Invalid Interpretation Code 4.20 - 5.40 10^6/mcL AO Workflow SS Sodium [Moles/Vol] 137 mmol/L Invalid Interpretation Code 136 - 145 mmol/L AO ADM SS Troponin I.cardiac DL <= 0.01 ng/mL [Mass/Vol] 9.9 ng/L Invalid Interpretation Code 0.0 - 51.4 ng/L AO ADM SS Urea nitrogen [Mass/Vol] 15 mg/dL Invalid Interpretation Code 7 - 18 mg/dL AO ADM SS Urea nitrogen/Creatinine [Mass ratio] 21 ratio Invalid Interpretation Code 7 - 27 ratio AO ADM SS WBC (Bld) [#/Vol] 6.8 103/mcL Invalid Interpretation Code 4.6 - 10.8 10^3/mcL AO Workflow SS LABORATORYOrdered By: SYSTEM SYSTEM on 04-25-2022 GFR 102 ml/min/1.73sqm Invalid Interpretation Code AO Chemistry S GFR Non- 84 ml/min/1.73sqm Invalid Interpretation Code AO Chemistry S ED NOTEon 01-20-2022 ED NOTE HNO ID: [id number] Author: Ranjith Perez RN Service: ? Author Type: Registered Nurse Type: ED Notes Filed: 01/20/2022 7:54 PM Note Text: Pt medicated while in ER - prescription(s) provided for home use. Pt previously refused crutches/walker. Discharge instructions, follow up recommendations and medications reviewed with patient. Pt advised to return to ED with worsening symptoms. Pt verbalizes understanding. Stable upon d/c [facility] ED NOTE HNO ID: [id number] Author: Tristen Snow Service: Emergency Medicine Author Type: Legal Specialist Type: ED Notes Filed: 01/20/2022 7:50 PM Note Text: 16 Inch Knee Immobilizer applied to left knee for immobilization. Pt is declining Crutches at this time and will use Walker she has at home. Pt also states she does have Crutches @ home. Another Female is @ bedside. [facility] ED NOTE HNO ID: [id number] Author: Kelle Humphrey RN Service: ? Author Type: Registered Nurse Type: ED Notes Filed: 01/20/2022 6:05 PM Note Text: Pt with left knee pain worsening over the last few days without known trauma. [facility] ED PROV NOTEon 01-20-2022 ED PROV NOTE HNO ID: [id number] Author: Shaun Robles PA-C Service: Emergency Medicine Author Type: Physician Yoga Teacher Type: ED Provider Notes Filed: 01/21/2022 7:38 PM Note Text: ED Provider Note Patient Name: Doreen Denise : 1960 SERVICE DATE: 01/20/22 History Patient presents with: Knee Pain This is a 62-year-old female with past medical history COPD, hypertension, diabetes mellitus presents emergency department for left knee pain. Patient reports pain to the left knee over the past 3 days, worse today. Denies any known fall or trauma. She reports pain diffusely to the left knee. Also reports some swelling. She does report some increased pain with weightbearing. She does have a walker at home that she does use intermittently. She denies any fevers. Denies any redness or wounds to the knee. Denies any history of gout. She denies any IV drug use. She states that her blood sugar has been running well. PAST MEDICAL HISTORY Diagnosis Date - Chronic bilateral low back pain with right-sided sciatica 03/17/2016 - Chronic obstructive pulmonary disease (COPD) ([facility]) - COPD, mild ([facility]) 03/17/2016 - DDD (degenerative disc disease), lumbar 03/18/[address] Sorensen's notes - Diabetes ([facility]) - Drug abuse ([facility]) 03/23/2016 Tox screen 02/2016 showed high levels of methamphetamines and OARRS was neg for any prescription sources. - Essential hypertension 05/01/2015 - Radiculopathy, lumbar region 03/18/2016 - Smoker 05/01/2015 Started around age 17 up to a PPD. - Thoracic radiculopathy 03/18/2016 - Uncontrolled type 2 diabetes mellitus without complication, with long-term current use of insulin 03/22/2016 PAST SURGICAL HISTORY Procedure Laterality Date - ANESTH, SECTION - BACK SURGERY HX MRSA No family history on file. Social History Tobacco Use - Smoking status: Current Every Day Smoker Packs/day: 0.50 - Smokeless tobacco: Never Used Substance and Sexual Activity - Alcohol use: No - Drug use: No Comment: urine drug screen + amphetamines 03/17/16 - Sexual activity: Not on file ALLERGIES Allergen Reactions - Codeine Rash - Vicodin [Hydrocodon* Rash Review of Systems Constitutional: Negative for chills and fever. Musculoskeletal: Positive for arthralgias and joint swelling. All other systems reviewed and are negative. Physical Exam Vitals [01/20/22 1805] BP Pulse Temp Temp src Resp SpO2 Weight Height 136/87 (!) 115 37.2 ?C (99 ?F) Temporal 24 99 % 63.5 kg (140 lb) 1.702 m (5' 7) Physical Exam Vitals and nursing note reviewed. Constitutional: General: She is not in acute distress. Appearance: She is well-developed. HENT: Head: Normocephalic and atraumatic. Right Ear: External ear normal. Left Ear: External ear normal. Nose: Nose normal. Eyes: General: No scleral icterus. Right eye: No discharge. Left eye: No discharge. Conjunctiva/sclera: Conjunctivae normal. Neck: Vascular: No JVD. Trachea: No tracheal deviation. Cardiovascular: Rate and Rhythm: Normal rate and regular rhythm. Heart sounds: Normal heart sounds. Pulmonary: Effort: Pulmonary effort is normal. No respiratory distress. Abdominal: General: There is no distension. Musculoskeletal: General: Swelling and tenderness present. No deformity. Comments: There is diffuse tenderness about the left knee. There is swelling noted. Patient has full range of motion with flexion extension of the left knee. There is no erythema of the knee. There is some mild warmth noted. PT and DP pulses are 2+. Sensation is grossly intact to the left lower extremity. Skin: General: Skin is warm and dry. Neurological: Mental Status: She is alert and oriented to person, place, and time. Psychiatric: Mood and Affect: Mood normal. Diagnostic Testing ED Labs Ordered and Reviewed - No data to display XR KNEE LIMITED 2V AP/LAT LEFT Final Result IMPRESSION: 1. Age-indeterminate depressed lateral tibial plateau fracture without acute fracture line visualized. 2. Large suprapatellar joint effusion. 3. Moderate tricompartmental osteoarthropathy without erosions. Junior Net Developer: [facility] Transcribe Date/Time: Jan 20 2022 6:28P Dictated by : PRAMOD DE LA ROSA MD This examination was interpreted and the report reviewed and electronically signed by: PRAMOD DE LA ROSA MD on Jan 20 2022 6:30PM EST Procedures ED Course / Clinical Impression Vital signs were reviewed. Triage records were reviewed. Medical records were reviewed. Nursing notes were reviewed and incorporated. ASSESSMENT: Briefly, patient is a 62 year old female who presents with left knee pain x3 days. ED COURSE: On arrival to the emergency department, patient noted be tachycardic in triage. Afebrile. On exam, patient is laying in bed, she does appear in some pain clutching her left knee. Heart rate is mildly tachycardic, regular rhythm. Lungs clear to auscultation throughout. Th (more content not included)... Normal [facility] XR KNEE 2V AP/LAT LTon 01-20 XR KNEE 2V AP/LAT LT * * *Final Report* * * DATE OF EXAM: Jan 20 2022 6:21PM ANX [id number] - XR KNEE 2V AP/LAT LT / PROCEDURE REASON: Joint pain, knee * * * * Physician Interpretation * * * * EXAMINATION: XR KNEE 2V AP/LAT LT CLINICAL HISTORY: Joint pain, knee Comparison: None RESULT: Bones: The lateral tibial plateau is depressed by approximately 5 mm. Tricompartmental osteophytosis. Soft tissues: Large suprapatellar joint effusion. IMPRESSION: 1. Age-indeterminate depressed lateral tibial plateau fracture without acute fracture line visualized. 2. Large suprapatellar joint effusion. 3. Moderate tricompartmental osteoarthropathy without erosions. Junior Net Developer[facility] Transcribe Date/Time: Jan 20 2022 6:28P Dictated by : PRAMOD DE LA ROSA MD This examination was interpreted and the report reviewed and electronically signed by: PRAMOD DE LA ROSA MD on Jan 20 2022 6:30PM EST [id number] Normal [facility] CR Femur 2+ Views Righton CR Femur 2+ Views Right Patient Name: DOREEN DENISE Diagnostic Radiology ACCESSION EXAM DATE/TIME PROCEDURE ORDERING PROVIDER [id number] 08/08/2021 20:04 EST CR Femur 2+ Views Right [id number] ROSHNI DONOVAN CPT code 90840 Reason For Exam (CR Femur 2+ Views Right n) fall on ice Report PELVIS SINGLE VIEW. RIGHT FEMUR 2 VIEWS CLINICAL INDICATION: fall on hip, pain TECHNIQUE: Single, AP view of the pelvis. 2 views of the right femur COMPARISON: None. FINDINGS: No acute fracture or dislocation. Hip joint spaces maintained. Degenerative change in the visualized lumbosacral junction. Degenerative change also noted in the right knee joint, including chronic-appearing fragmentation or spurring off the superior patellar pole. Soft tissues grossly unremarkable. IMPRESSION: 1. No acute osseous abnormality. 2. Degenerative change. Report Dictated on Workstation: EDWARD Final Dictated: 08/08/2021 8:07 pm Dictating Physician: MD REYNA WENDELL Signed Date and Time: 08/08/2021 8:10 pm Signed by: MD REYNA WENDELL Transcribed Date and Time: 08/08/2021 8:07 Normal [facility] CR Pelvis 1 or 2 Viewson CR Pelvis 1 or 2 Views Patient Name: DOREEN DENISE Diagnostic Radiology ACCESSION EXAM DATE/TIME PROCEDURE ORDERING PROVIDER [id number] 08/08/2021 20:03 EST CR Pelvis 1 or 2 Views [id number] TSE CPT code 14442 Reason For Exam (CR Pelvis 1 or 2 Views) fall on hip Report PELVIS SINGLE VIEW. RIGHT FEMUR 2 VIEWS CLINICAL INDICATION: fall on hip, pain TECHNIQUE: Single, AP view of the pelvis. 2 views of the right femur COMPARISON: None. FINDINGS: No acute fracture or dislocation. Hip joint spaces maintained. Degenerative change in the visualized lumbosacral junction. Degenerative change also noted in the right knee joint, including chronic-appearing fragmentation or spurring off the superior patellar pole. Soft tissues grossly unremarkable. IMPRESSION: 1. No acute osseous abnormality. 2. Degenerative change. Report Dictated on Workstation: EDWARD Final Dictated: 08/08/2021 8:07 pm Dictating Physician: MD REYNA WENDELL Signed Date and Time: 08/08/2021 8:10 pm Signed by: MD REYNA WENDELL Transcribed Date and Time: 08/08/2021 8:07 Normal [facility] CR Chest Portableon 07-04-19 22 CR Chest Portable Patient Name: DOREEN DENISE Diagnostic Radiology ACCESSION EXAM DATE/TIME PROCEDURE ORDERING PROVIDER [id number] 07/04/2021 02:57 EST CR Chest Portable MD MARTINEZ STEPHEN CPT code 81673 Reason For Exam (CR Chest Portable) cough x 3 days Report CHEST X-RAY AP CLINICAL INDICATION: Cough AP radiograph of the chest was obtained. COMPARISON: September 13, 2020 FINDINGS: The cardiac silhouette is within normal limits. No focal consolidation or opacification is seen within the lungs. No pleural effusion or pneumothorax is identified. Degenerative changes of the thoracic spine are noted. IMPRESSION: No acute cardiopulmonary process. Report Dictated on Final Dictated: 07/04/2021 3:39 am Dictating Physician: MD DIANA JASON Signed Date and Time: 07/04/2021 3:41 am Signed by: MD DIANA JASON Transcribed Date and Time: 07/04/2021 3:39 Normal [facility] Basic Metabolic Panelon 08-2 Calcium [Mass/Vol] 9.8 mg/dL Normal 8.4-10.4 [facility] Comment on above: Performed By: #### B GLU #### [place] [address] [place], [place] Glucose [Mass/Vol] 287 mg/dL High 70-100 [facility] Comment on above: Performed By: #### B GLU #### [place] [address] [place] [address] Anion gap [Moles/Vol] 5 mmol/L Normal 3-13 [facility] Comment on above: Performed By: #### B GLU #### [place] [address] [place], [place] CO2 [Moles/Vol] 30 mmol/L Normal 22-30 [facility] Comment on above: Performed By: #### B GLU #### [place] [address] [place], [place] Creatinine [Mass/Vol] 0.52 mg/dL Normal 0.52-1.25 [facility] Comment on above: Performed By: #### B GLU #### [place] [address] [place], [place] eGFR OTHER > 90.0 Normal >60 [facility] Comment on above: Result Comment: KDIG O guidelines provide the following GFR categories: Stage GFR(ml/min/1.73 m2) Terms G1 >=90 Normal or high G2 60-89 Mildly decreased* G3a 45-59 Mildly to moderately decreased G3b 30-44 Moderately to severely decreased G4 15-29 Severely decreased G5 <15 Kidney failure *Relative to young adult level. In the absence of evidence of kidney damage, neither GFR category G1 nor G2 fulfill the criteria for CKD. The CKD-EPI equation is validated in individuals 18 years of age and older. Currently the best equation for estimating glomerular filtration rate (GFR) from serum creatinine in children is the Bedside Meza equation. It is less accurate in patients with extremes of muscle mass, restriction of dietary protein, ingestion of creatine, extra-renal metabolism of creatinine, or treatment with medications that affect renal tubular creatinine secretion. Performed By: #### B GLU #### [address] GFR/1.73 sq M.predicted among blacks MDRD (S/P/Bld) [Vol rate/Area] mL/min/{1.73_m2} Normal >60 [facility] Comment on above: Performed By: #### B GLU #### [place] [address] [place], [place] Urea nitrogen [Mass/Vol] 12 mg/dL Normal 7-20 [facility] Comment on above: Performed By: #### B GLU #### [place] [place] [place], [place] Chloride [Moles/Vol] 101 mmol/L Normal 98-107 [facility] Comment on above: Performed By: #### B GLU #### [place] [place] [place], [place] Potassium [Moles/Vol] 4.8 mmol/L Normal 3.5-5.1 [facility] Comment on above: Performed By: #### B GLU #### [place] [place] [place], [place] Sodium [Moles/Vol] 136 mmol/L Normal 135-145 [facility] Comment on above: Performed By: #### B GLU #### [place] [place], [place] Basic Metabolic PanelOrdered By: Karlie Wilburn on 02-07-2021 Anion gap [Moles/Vol] 5 mmol/L 3 - 13 mmol/L [facility] Work Phone: [phone] Calcium [Mass/Vol] 9.8 mg/dL 8.4 - 10. 4 mg/dL [facility] Work Phone: [phone] Chloride [Moles/Vol] 101 mmol/L 98 - 10 7 mmol/L [facility] Work Phone: [phone] CO2 [Moles/Vol] 30 mmol/L 22 - 30 mmol/L [facility] Work Phone: [phone] Creatinine [Mass/Vol] 0.52 mg/dL 0.52 - 1.25 mg/dL [facility] Work Phone: [phone] EGFR IF NonAfrican Thai >90.0 >60 mL/min [facility] Work Phone: [phone] Comment on above: KDIGO guidelines pro vide the following GFR categories: Stage GFR(ml/min/1.73 m2) Terms G1 >=90 Normal or high G2 60-89 Mildly decreased* G3a 45-59 Mildly to moderately decreased G3b 30-44 Moderately to severely decreased G4 15-29 Severely decreased G5 <15 Kidney failure *Relative to young adult level. In the absence of evidence of kidney damage, neither GFR category G1 nor G2 fulfill the criteria for CKD. The CKD-EPI equation is validated in individuals 18 years of age and older. Currently the best equation for estimating glomerular filtration rate (GFR) from serum creatinine in children is the Bedside Meza equation. It is less accurate in patients with extremes of muscle mass, restriction of dietary protein, ingestion of creatine, extra-renal metabolism of creatinine, or treatment with medications that affect renal tubular creatinine secretion. GFR/1.73 sq M.predicted among blacks MDRD (S/P/Bld) [Vol rate/Area] mL/min/{1.73_m2} >60 mL/min [facility] Work Phone: [phone] Glucose [Mass/Vol] 287 mg/dL High 70 - 100 mg/dL [facility] Work Phone: [phone] Interpretation and review of laboratory results Abnormal [facility] Work Phone: [phone] Potassium [Moles/Vol] 4.8 mmol/L 3.5 - 5.1 mmol/L [facility] Work Phone: [phone] Sodium [Moles/Vol] 136 mmol/L 135 - 145 mmol/L [facility] Work Phone: Urea nitrogen (BldV) [Mass/Vol] 12 mg/dL 7 - 20 mg/dL [facility] Work Phone: CT Abdomen Pelvis Wo Contras tOrdered By: Karlie Wilburn on 02-07-2021 [id number] ACCESSION EXAM DATE/TIME PROCEDURE ORDERING PROVIDER [id number] 02/07/2021 11:[address] Abdomen/Pelvis (No POLO, MARYANNE, KARLIE Mcdonald PO, No IV) CPT code 33211 Reason For Exam (CT Abdomen/Pelvis (No PO, No IV)) Right flank pain suspect urinary stone Report CT ABDOMEN AND PELVIS WITHOUT IV CONTRAST CLINICAL INDICATION: Right flank pain TECHNIQUE: Multidetector spiral transaxial sequence was performed through the abdomen and pelvis without intravenous contrast. Images were reconstructed at 3 mm slice width at 3 mm interval. COMPARISON: None FINDINGS: Exam quality: This examination is limited for the evaluation of solid organs and vascular structures due to the lack of intravenous contrast. Chest base: Normal. Liver: The liver is mildly enlarged with normal contours. No identifiable lesion. Biliary tree: Normal caliber. Gallstones are seen in a nondistended gallbladder. Spleen: Normal. Adrenals: Normal. Pancreas: Normal. Kidneys: 2.9 cm fluid density left renal lesion consistent with a cyst. Renal collecting systems: No calculi, hydronephrosis or ureteral dilatation. Free fluid: None. Retroperitoneal/mesenteric lymphadenopathy: None. Bowel: Normal caliber bowel loops. Diverticuli are noted throughout the sigmoid colon. No stenotic lesion, mucosal thickening or adjacent fat stranding is noted to suggest diverticulitis. Nondistended appendix. Computed Tomography Report Aorta: Mild atherosclerotic calcifications are seen in the aorta and its branches. The aorta is normal in caliber. Abdominal wall: Normal. Pelvic organs/viscera: No mass identified. Bladder: No calculi or filling defects. Pelvic lymphadenopathy: None. Osseous structures: Degenerative change of the visualized spine is noted. IMPRESSION: 1. No radiopaque urinary calculi or hydroureteronephrosis. 2. Other chronic and incidental findings including mild hepatomegaly, cholecystolithiasis and colonic diverticulosis. Report Dictated on --- Final --- Dictated: 02/07/2021 11:57 am Dictating Physician: MD VELA NICHOLAS Signed Date and Time: 02/07/2021 12:02 pm Signed by: MD VELA NICHOLAS Transcribed Date and Time: 02/07/2021 11:57 [facility] Work Phone: [place], [facility] Incoming Radiology Results From [facility] - 02/07/2021 12:03 PM EDT Patient Name: DOREEN DENISE Computed Tomography ACCESSION EXAM DATE/TIME PROCEDURE ORDERING PROVIDER [id number] 02/07/2021 11:[address] Abdomen/Pelvis (No WILBURN, PA, KARLIE N PO, No IV) CPT code 16681 Reason For Exam (CT Abdomen/Pelvis (No PO, No IV)) Right flank pain suspect urinary stone Report CT ABDOMEN AND PELVIS WITHOUT IV CONTRAST CLINICAL INDICATION: Right flank pain TECHNIQUE: Multidetector spiral transaxial sequence was performed through the abdomen and pelvis without intravenous contrast. Images were reconstructed at 3 mm slice width at 3 mm interval. COMPARISON: None FINDINGS: Exam quality: This examination is limited for the evaluation of solid organs and vascular structures due to the lack of intravenous contrast. Chest base: Normal. Liver: The liver is mildly enlarged with normal contours. No identifiable lesion. Biliary tree: Normal caliber. Gallstones are seen in a nondistended gallbladder. Spleen: Normal. Adrenals: Normal. Pancreas: Normal. Kidneys: 2.9 cm fluid density left renal lesion consistent with a cyst. Renal collecting systems: No calculi, hydronephrosis or ureteral dilatation. Free fluid: None. Retroperitoneal/mesenteric lymphadenopathy: None. Bowel: Normal caliber bowel loops. Diverticuli are noted throughout the sigmoid colon. No stenotic lesion, mucosal thickening or adjacent fat stranding is noted to suggest diverticulitis. Nondistended appendix. Computed Tomography Report Aorta: Mild atherosclerotic calcifications are seen in the aorta and its branches. The aorta is normal in caliber. Abdominal wall: Normal. Pelvic organs/viscera: No mass identified. Bladder: No calculi or filling defects. Pelvic lymphadenopathy: None. Osseous structures: Degenerative change of the visualized spine is noted. IMPRESSION: 1. No radiopaque urinary calculi or hydroureteronephrosis. 2. Other chronic and incidental findings including mild hepatomegaly, cholecystolithiasis and colonic diverticulosis. Report Dictated on --- Final --- Dictated: 02/07/2021 11:57 am Dictating Physician: MD VELA NICHOLAS Signed Date and Time: 02/07/2021 12:02 pm Signed by: MD VELA NICHOLAS Transcribed Date and Time: 02/07/2021 11:57 [facility] Work Phone: [facility] Work Phone: CT Abdomen/Pelvis w/o Contra ston 02-07-2021 CT Abdomen/Pelvis w/o Contrast Patient Name: DOREEN DENISE Computed Tomography ACCESSION EXAM DATE/TIME PROCEDURE ORDERING PROVIDER [id number] 02/07/2021 11:[address] Abdomen/Pelvis (No WILBURN, PA, KARLIE N PO, No IV) CPT code 45902 Reason For Exam (CT Abdomen/Pelvis (No PO, No IV)) Right flank pain suspect urinary stone Report CT ABDOMEN AND PELVIS WITHOUT IV CONTRAST CLINICAL INDICATION: Right flank pain TECHNIQUE: Multidetector spiral transaxial sequence was performed through the abdomen and pelvis without intravenous contrast. Images were reconstructed at 3 mm slice width at 3 mm interval. COMPARISON: None FINDINGS: Exam quality: This examination is limited for the evaluation of solid organs and vascular structures due to the lack of intravenous contrast. Chest base: Normal. Liver: The liver is mildly enlarged with normal contours. No identifiable lesion. Biliary tree: Normal caliber. Gallstones are seen in a nondistended gallbladder. Spleen: Normal. Adrenals: Normal. Pancreas: Normal. Kidneys: 2.9 cm fluid density left renal lesion consistent with a cyst. Renal collecting systems: No calculi, hydronephrosis or ureteral dilatation. Free fluid: None. Retroperitoneal/mesenteric lymphadenopathy: None. Bowel: Normal caliber bowel loops. Diverticuli are noted throughout the sigmoid colon. No stenotic lesion, mucosal thickening or adjacent fat stranding is noted to suggest diverticulitis. Nondistended appendix. Computed Tomography Report Aorta: Mild atherosclerotic calcifications are seen in the aorta and its branches. The aorta is normal in caliber. Abdominal wall: Normal. Pelvic organs/viscera: No mass identified. Bladder: No calculi or filling defects. Pelvic lymphadenopathy: None. Osseous structures: Degenerative change of the visualized spine is noted. IMPRESSION: 1. No radiopaque urinary calculi or hydroureteronephrosis. 2. Other chronic and incidental findings including mild hepatomegaly, cholecystolithiasis and colonic diverticulosis. Report Dictated on Final Dictated: 02/07/2021 11:57 am Dictating Physician: MD VELA NICHOLAS Signed Date and Time: 02/07/2021 12:02 pm Signed by: MD VELA NICHOLAS Transcribed Date and Time: 02/07/2021 11:57 Normal [facility] Complete Urinalysison 2020 Appearance (U) Clear Normal Clear [facility] Comment on above: Result Comment: . Performed By: #### B GLU #### [place] [address] [place], [place] Bilirubin,Urine Negative Normal Negative [facility] Comment on above: Result Comment: . Performed By: #### B GLU #### [place] [address] [place], [place] Color (U) Light-Yellow Normal Lt. Yellow [facility] Comment on above: Result Comment: . Performed By: #### B GLU #### [facility] [address], [place] Glucose Ql (U) Normal Normal Normal (<70) [facility] Comment on above: Result Comment: . Performed By: #### B GLU #### [facility] [address], [place] Ketone,Urine Negative Normal Negative [facility] Comment on above: Result Comment: . Performed By: #### B GLU #### [facility] [address] [place] [address] Leukocytes,Urine Negative Normal Negative [facility] Comment on above: Result Comment: . Performed By: #### B GLU #### [facility] [address], [place] Nitrites,Urine Negative Normal Negative [facility] Comment on above: Result Comment: . Performed By: #### B GLU #### [facility] [address], [place] Occult Blood,Urine Negative Normal Negative [facility] Comment on above: Result Comment: . Performed By: #### B GLU #### [facility] [address], [place] pH,Urine 6.5 Normal 5.0-8.0 [facility] Comment on above: Result Comment: . Performed By: #### B GLU #### [facility] [address], [place] Specific [place],Urine 1.010 Normal 1.005 - 1.030 [facility] Comment on above: Result Comment: . Performed By: #### B GLU #### [facility] [address], [place] Total Protein,Urine Negative Normal Negative [facility] Comment on above: Result Comment: . Performed By: #### B GLU #### [facility] [address], [place] Urobilinogen,Urine Normal Normal Normal (0-1) [facility] Comment on above: Result Comment: . Performed By: #### B GLU #### [facility] [address], [place] ED Provider Noteon [facility] Patient: Doreen Denise : 1960 Date of Evaluation: 02/07/2021 ED CHAN Provider: Karlie Wilburn PA-C ChiefComplaint Chief Complaint Patient presents with ? Flank Pain NOTTAWASEPPI POTAWATOMIVivian Denise is a 61 y.o. female with right-sided flank pain started last night, profoundly worse today, states it is significantly painful to touch the area, shoots around the flank. Denies any changes with her bowel or bladder habits, denies history of kidney stones. Denies history of shingles/zoster, has had chickenpox in the past, is not vaccinated for zoster. Pain is 9/10 sharp and aching in nature. Denies chest pain, shortness of breath, recent hospitalization or procedures. Aside from remote history of cancer now in remission denies any long-term medical problems. She has a listed history of insulin-dependent diabetes, COPD, amphetamine abuse, hypertension, remote history of lymphoma. ROS: Review of Systems At least 10 systems reviewed and otherwise acutely negative except as in the NOTTAWASEPPI POTAWATOMI. Past History Past Medical History: Diagnosis Date ? Amphetamine abuse (HCC) ? Cholecystitis ? COPD (chronic obstructive pulmonary disease) (HCC) ? Diabetes mellitus (HCC) insulin dependence ? History of personality disorder ? HTN (hypertension) ? Lymphoma, large cell (HCC) head, neck, face ? Poor compliance with medication ? Sepsis (HCC) ? Tobacco use Past Surgical History: Procedure Laterality Date ? SECTION ? COLONOSCOPY ? LYMPH NODE BIOPSY ? UPPER GASTROINTESTINAL ENDOSCOPY Social History Socioeconomic History ? Marital status: Single Spouse name: None ? Number of children: None ? Years of education: None ? Highest education level: None Occupational History ? None Tobacco Use ? Smoking status: Current Every Day Smoker Packs/day: 0.50 Types: Cigarettes Start date: 1980 ? Smokeless tobacco: Never Used Substance and Sexual Activity ? Alcohol use: No ? Drug use: No Comment: hx amphetamines, not for past year ? Sexual activity: None Other Topics Concern ? None Social History Narrative ? None Social Determinants of Health Financial Resource Strain: ? Difficulty of Paying Living Expenses: Food Insecurity: No Food Insecurity ? Worried About Running Out of Food in the Last Year: Never true ? Ran Out of Food in the Last Year: Never true Transportation Needs: No Transportation Needs ? Lack of Transportation (Medical): No ? Lack of Transportation (Non-Medical): No Physical Activity: Insufficiently Active ? Days of Exercise per Week: 3 days ? Minutes of Exercise per Session: 30 min Stress: Stress Concern Present ? Feeling of Stress : Rather much Social Connections: ? Frequency of Communication with Friends and Family: ? Frequency of Social Gatherings with Friends and Family: ? Attends [employer] Services: ? Active Member of Clubs or Organizations: ? Attends Club or Organization Meetings: ? Marital Status: Intimate Partner Violence: ? Fear of Current or Ex-Partner: ? Emotionally Abused: ? Physically Abused: ? Sexually Abused: Medications/Allergies Discharge Medication List as of 02/07/2021 12:43 PM CONTINUE these medications which have NOT CHANGED Details Alcohol Swabs (ALCOHOL PADS) 70 % PADS Disp-200 each, R-5, NormalAs Directed Lancets MISC Disp-200 each, R-5, NormalUse three times a day and as needed blood glucose monitor strips Use as directed 3x/day. Type:, Disp-100 strip, R-5, Normal hydroCHLOROthiazide (HYDRODIURIL) 25 MG tablet Take 1 tablet by mouth daily for 10 days, Disp-90 tablet, R-0Normal blood glucose monitor kit and supplies Dispense sufficient amount for indicated testing frequency plus additional to accommodate PRN testing needs. Dispense all needed supplies to include: monitor, strips, lancing device, lancets, control solutions, alcohol swabs., Disp-1 kit, R-0, Normal aspirin 81 MG EC tablet 81 mg Indications: pt states she is not taking Historical Med insulin lispro, 1 Unit Dial, (HUMALOG KWIKPEN) 100 UNIT/ML SOPN Inject 6 Units into the skin 3 times daily (before meals), Disp-5 pen, R-1Normal insulin glargine (LANTUS SOLOSTAR) 100 UNIT/ML injection pen Inject 25 Units into the skin nightly, Disp-5 pen, R-3Normal Allergies Allergen Reactions ? Codeine Rash ? Vicodin [Hydrocodone-Acetaminophen] Rash Physical Exam ED Triage Vitals [02/07/21 1047] BP Temp Temp src Pulse Resp SpO2 Height Weight (!) 114/100 97.2 ?F (36.2 ?C) -- 101 18 100 % 5' 7 (1.702 m) 140 lb (63.5 kg) Physical Exam Vitals and nursing note reviewed. Constitutional: Appearance: She is not toxic-appearing or diaphoretic. Comments: Middle-age female appears uncomfortable, complaining of pain, calm and cooperative alert and oriented x4, mentating appropriately. HENT: Head: Normocephalic and atraumatic. Right Ear: Hearing and external ear normal. (more content not included)... Normal Striiv Hemogram (CBC) w/Auto DiffOr dered By: Karlie Wilburn on 02-07-2021 Absolute Baso # 0.0 10*3/uL 0.0 - 0.2 10*3/uL [employer] Work Phone: Absolute Neut # 4.8 10*3/uL 1.8 - 7.0 10*3/uL [facility] Work Phone: [phone] Basophils/100 WBC (Bld) 0.2 % 0.0 - 2.0 % [facility] Work Phone: [phone] Eosinophils (Bld) [#/Vol] 0.2 10*3/uL 0.0 - 0.5 10*3/uL [facility] Work Phone: 1() 222 Eosinophils/100 WBC (Bld) 2.6 % 1.0 - 6.0 % [facility] Work Phone: 1() 222 Granulocytes/100 WBC (Bld) 63.1 % 40.0 - 80.0 % [facility] Work Phone: ) 222 Hematocrit (Bld) [Volume fraction] 42.0 % 35.0 - 47.0 % [facility] Work Phone: [phone] Hemoglobin.gastrointe stinal spec 1 Ql (Stl) 14.4 g/dL 11.7 - 16.0 g/dL [facility] Work Phone: [phone] Interpretation and review of laboratory results Abnormal [employer] Work Phone: [phone]() 222 Lymphocytes (Bld) [#/Vol] 2.1 10*3/uL 1.0 - 4.3 10*3/uL [facility] Work Phone: 1() 222 Lymphocytes/100 WBC (Bld) 27.0 % 20.0 - 40.0 % [facility] Work Phone: 1() 222 MCH (RBC) [Entitic mass] 30.2 pg 26.0 - 34.0 pg [facility] Work Phone: 1() 222 MCHC (RBC) [Mass/Vol] 34.4 % 32.0 - 36.0 % [facility] Work Phone: [phone] 222 MCV (RBC) [Entitic vol] 87.8 fL 79.0 - 98.0 fL [facility] Work Phone: 1() 222 Monocytes (Bld) [#/Vol] 0.5 10*3/uL 0.0 - 0.8 10*3/uL [facility] Work Phone: [phone] Monocytes/100 WBC (Bld) 7.1 % 2.0 - 10.0 % [employer] Work Phone: [phone] Platelet distribution width (Bld) [Ratio] 16.0 % High 11.5 - 14.5 % [employer] Work Phone: [phone] Platelet mean volume (Bld) [Entitic vol] 8.2 fL 7.4 - 10.4 fL [employer] Work Phone: [phone] Platelets (Bld) [#/Vol] 199 10*3/uL 140 - 440 10*3/uL [employer] Work Phone: [phone] RBC (Bld) [#/Vol] 4.78 10*6/uL 3.80 - 5.20 10*6/uL [employer] Work Phone: [phone] WBC (Bld) [#/Vol] 7.6 10*3/uL 3.6 - 10.7 10*3/uL [employer] Work Phone: [phone] Test Performed by [facility], [facility] [place] [address] [facility] Work Phone: [phone] [employer] Work Phone: [phone] Hemogram w/ Autodiffon 02-07 Abs Baso Cnt 0.0 10*3/uL Normal 0.0-0.2 [facility] Comment on above: Performed By: #### B GLU #### [facility] [employer] [place] [address] [place] [address] Abs Neutrophile Cnt 4.8 10*3/uL Normal 1.8-7.0 [facility] Comment on above: Performed By: #### B GLU #### [facility] [employer] [address] [address] Basophils/100 WBC (Bld) 0.2 % Normal 0.0-2.0 [facility] Comment on above: Performed By: #### B GLU #### [facility] [address] [address] Eosinophils (Bld) [#/Vol] 0.2 10*3/uL Normal 0.0-0.5 [facility] Comment on above: Performed By: #### B GLU #### [facility] [address] [place], [place] Eosinophils/100 WBC (Bld) 2.6 % Normal 1.0-6.0 [facility] Comment on above: Performed By: #### B GLU #### [facility] [address] [place], [place] Erythrocyte distribution width (RBC) [Ratio] 16.0 % High 11.5-14.5 [facility] Comment on above: Performed By: #### B GLU #### [place] [address] [place], [place] Granulocytes/100 WBC (Bld) 63.1 % Normal 40.0-80.0 [facility] Comment on above: Performed By: #### B GLU #### [place] [address] [place], [place] Hematocrit (Bld) [Volume fraction] 42.0 % Normal 35.0-47.0 [facility] Comment on above: Performed By: #### B GLU #### [place] [address] [place], [place] Hemoglobin (Bld) [Mass/Vol] 14.4 g/dL Normal 11.7-16.0 [facility] Comment on above: Performed By: #### B GLU #### [place] [address] [place], [place] Lymphocytes (Bld) [#/Vol] 2.1 10*3/uL Normal 1.0-4.3 [facility] Comment on above: Performed By: #### B GLU #### [place] [address] [place], [place] Lymphocytes/100 WBC (Bld) 27.0 % Normal 20.0-40.0 [facility] Comment on above: Performed By: #### B GLU #### [place] [address] [place], [place] MCH (RBC) [Entitic mass] 30.2 pg Normal 26.0-34.0 [facility] Comment on above: Performed By: #### B GLU #### [place] [address] [place], [place] MCHC 34.4 % Normal 32.0-36.0 [facility] Comment on above: Performed By: #### B GLU #### [place] [address] [place], [place] MCV (RBC) [Entitic vol] 87.8 fL Normal 79.0-98.0 [facility] Comment on above: Performed By: #### B GLU #### [place] [address] [place], [place] Monocytes (Bld) [#/Vol] 0.5 10*3/uL Normal 0.0-0.8 [facility] Comment on above: Performed By: #### B GLU #### [place] [address] [place], [place] Monocytes/100 WBC (Bld) 7.1 % Normal 2.0-10.0 [facility] Comment on above: Performed By: #### B GLU #### [place] [address] [place], [place] Platelet mean volume (Bld) [Entitic vol] 8.2 fL Normal 7.4-10.4 [facility] Comment on above: Performed By: #### B GLU #### [place] [address] [place], [place] Platelets (Bld) [#/Vol] 199 10*3/uL Normal 140-440 [facility] Comment on above: Performed By: #### B GLU #### [place] [address] [place], [place] RBC (Bld) [#/Vol] 4.78 10*6/uL Normal 3.80-5.20 [facility] Comment on above: Performed By: #### B GLU #### [place] [address] [place], [place] WBC (Bld) [#/Vol] 7.6 10*3/uL Normal 3.6-10.7 [facility] Comment on above: Performed By: #### B GLU #### [place] [address] [place], [place] Hepatic Functionon ALP [Catalytic activity/Vol] 72 U/L Normal 38-126 [facility] Comment on above: Performed By: #### B GLU #### [facility] [address] [place], [place] ALT [Catalytic activity/Vol] 12 U/L Normal 0-34 [facility] Comment on above: Result Comment: The ALT test is performed by an updated assay method. Please note that the reference intervals have been changed and are now sex specific. Performed By: #### B GLU #### [facility] [address] [place], [place] AST [Catalytic activity/Vol] 25 U/L Normal 15-46 [facility] Comment on above: Performed By: #### B GLU #### [place] [address] [place], [place] Bilirubin [Mass/Vol] 1.0 mg/dL Normal 0.2-1.3 [facility] Comment on above: Performed By: #### B GLU #### [place] [address] [place], [place] Bilirubin.indirect [Mass/Vol] 0.0 mg/dL Normal 0.0-0.3 [facility] Comment on above: Performed By: #### B GLU #### [facility] [address] [place], [place] Protein [Mass/Vol] 7.9 g/dL Normal 6.3-8.2 [facility] Comment on above: Performed By: #### B GLU #### [facility] [address] [place], [place] Albumin [Mass/Vol] 4.3 g/dL Normal 3.5-5.0 [facility] Comment on above: Performed By: #### B GLU #### [place] [address] [place], [place] Hepatic Function PanelOrdere d By: Karlie Wilburn on 02-07-2021 Albumin [Mass/Vol] 4.3 g/dL 3.5 - 5.0 g/dL [facility] Work Phone: ALP (Bld) [Catalytic activity/Vol] 72 U/L 38 - 126 U/L [facility] Work Phone: [phone] ALT [Catalytic activity/Vol] 12 U/L 0 - 34 U/L [facility] Work Phone: [phone] Comment on above: The ALT test is perf ormed by an updated assay method. Please note that the reference intervals have been changed and are now sex specific. AST [Catalytic activity/Vol] 25 U/L 15 - 46 U/L [facility] Work Phone: [phone] Bilirubin [Mass/Vol] 1.0 mg/dL 0.2 - 1 .3 mg/dL [facility] Work Phone: [phone] Bilirubin.indirect [Mass/Vol] 0.0 mg/dL 0.0 - 0.3 mg/dL [facility] Work Phone: [phone] Free PSA/Total PSA [Mass fraction] 7.9 g/dL 6.3 - 8.2 g/dL [facility] Work Phone: [phone] Lipaseon 02-07-2021 Lipase [Catalytic activity/Vol] 64 U/L Normal 23-300 [facility] Comment on above: Performed By: #### B GLU #### [address] [address] LipaseOrdered By: Karlie sandoval on 02-07-2021 Lipase [Catalytic activity/Vol] 64 U/L 23 - 300 U/L [facility] Work Phone: [phone] Panel InformationOrdered By: Karlie Wilburn on 02-07-2021 Test Performed by [facility], [address] [place] [id number] [place], [place] [address] Work Phone: [phone] [facility] Work Phone: [phone] UrinalysisOrdered By: Karlie Wilburn on 02-07-2021 Appearance (U) Clear Clear NA [facility] Work Phone: Comment on above: . Bilirubin Urine Negative Negative mg/dL [facility] Work Phone: [phone] Comment on above: . Color (U) Light-Yellow Lt. Yellow NA [employer] Work Phone: [phone] Comment on above: . Glucose, Ur Normal Normal (<70) mg/dL [employer] Work Phone: 1 Comment on above: . Ketones Ql (U) Negative Negative mg/dL [facility] Work Phone: 1 Comment on above: . LEUKOCYTES, UA Negative Negative Howie/uL [employer] Work Phone: 1 Comment on above: . Nitrite, Urine Negative Negative NA [employer] Work Phone: 1 Comment on above: . Occult Blood,Urine Negative Negative mg/dL [facility] Work Phone: 1 Comment on above: . pH (U) 6.5 [pH] [employer] Work Phone: 1 Comment on above: . Specific [place], Urine 1.010 [facility] Work Phone: 1 Comment on above: . Total Protein, Urine Negative Negativ e mg/dL [facility] Work Phone: 1 Comment on above: . Urobilinogen, Urine Normal Normal (0-1) mg/dL [facility] Work Phone: 1 Comment on above: . Test Performed by [facility], [address] [place] [id number] [facility] Work Phone: 1 [facility] Work Phone: [phone] CULTURE BLOODon 10-07-2020 Microscopic examination of blood, culture CULTURE BLOOD --> Status: F No growth at 5 days. Normal [facility] Comment on above: Performed By: #### C ELEANOR3Tramaine, MG3 #### [facility] [address] [place], [place] CULTURE BLOOD (Two)on 2020 Microscopic examination of blood, culture CULTURE BLOOD (Two) --> Status: F No growth at 5 days. Normal [facility] Comment on above: Performed By: #### C ELEANOR3M, MG3 #### [facility] [address] [place] [address] Hemogram w/ Autodiffon 09-17 Abs Baso Cnt 0.0 10*3/uL Normal 0.0-0.2 [facility] Comment on above: Performed By: #### B GLU #### [facility] [address] [place] [address] Abs Neutrophile Cnt 5.4 10*3/uL Normal 1.8-7.0 [facility] Comment on above: Performed By: #### B GLU #### [place] [address] [place] [address] Basophils/100 WBC (Bld) 0.4 % Normal 0.0-2.0 [facility] Comment on above: Performed By: #### B GLU #### [place] [address] [place], [place] Eosinophils (Bld) [#/Vol] 0.3 10*3/uL Normal 0.0-0.5 [facility] Comment on above: Performed By: #### B GLU #### [place] [address] [place], [place] Eosinophils/100 WBC (Bld) 4.3 % Normal 1.0-6.0 [facility] Comment on above: Performed By: #### B GLU #### [place] [address] [place], [place] Erythrocyte distribution width (RBC) [Ratio] 16.4 % High 11.5-14.5 [facility] Comment on above: Performed By: #### B GLU #### [place] [address] [place], [place] Granulocytes/100 WBC (Bld) 69.3 % Normal 40.0-80.0 [facility] Comment on above: Performed By: #### B GLU #### [place] [address] [place], [place] Hematocrit (Bld) [Volume fraction] 33.0 % Low 35.0-47.0 [facility] Comment on above: Performed By: #### B GLU #### [place] [address] [place], [place] Hemoglobin (Bld) [Mass/Vol] 11.1 g/dL Low 11.7-16.0 [facility] Comment on above: Performed By: #### B GLU #### [place] [address] [place], [place] Lymphocytes (Bld) [#/Vol] 1.4 10*3/uL Normal 1.0-4.3 [facility] Comment on above: Performed By: #### B GLU #### [address] [place], [place] Lymphocytes/100 WBC (Bld) 17.8 % Low 20.0-40.0 [facility] Comment on above: Performed By: #### B GLU #### [place] [address] [place], [place] MCH (RBC) [Entitic mass] 28.8 pg Normal 26.0-34.0 [facility] Comment on above: Performed By: #### B GLU #### [address] MCHC 33.6 % Normal 32.0-36.0 [facility] Comment on above: Performed By: #### B GLU #### [address] [place] MCV (RBC) [Entitic vol] 85.7 fL Normal 79.0-98.0 [facility] Comment on above: Performed By: #### B GLU #### [address] [place] Monocytes (Bld) [#/Vol] 0.6 10*3/uL Normal 0.0-0.8 [facility] Comment on above: Performed By: #### B GLU #### [place] [address] [place], [place] Monocytes/100 WBC (Bld) 8.2 % Normal 2.0-10.0 [facility] Comment on above: Performed By: #### B GLU #### [address] Platelet mean volume (Bld) [Entitic vol] 8.2 fL Normal 7.4-10.4 [facility] Comment on above: Performed By: #### B GLU #### [address] Platelets (Bld) [#/Vol] 286 10*3/uL Normal 140-440 [facility] Comment on above: Performed By: #### B GLU #### [place] [address] [place], [place] RBC (Bld) [#/Vol] 3.86 10*6/uL Normal 3.80-5.20 [facility] Comment on above: Performed By: #### B GLU #### [place] [address] [place] WBC (Bld) [#/Vol] 7.7 10*3/uL Normal 3.6-10.7 [facility] Comment on above: Performed By: #### B GLU #### [place] [address] [place], [place] Hepatic Functionon 1 ALP [Catalytic activity/Vol] 118 U/L Normal 38-126 [facility] Comment on above: Performed By: #### B GLU #### [place] [address] [place], [place] ALT [Catalytic activity/Vol] 14 U/L Normal 0-34 [facility] Comment on above: Result Comment: The ALT test is performed by an updated assay method. Please note that the reference intervals have been changed and are now sex specific. Performed By: #### B GLU #### [place] [address] [place], [place] AST [Catalytic activity/Vol] 28 U/L Normal 15-46 [facility] Comment on above: Performed By: #### B GLU #### [place] [address] [place] Bilirubin [Mass/Vol] 0.4 mg/dL Normal 0.2-1.3 [facility] Comment on above: Performed By: #### B GLU #### [place] [address] [place] Bilirubin.indirect [Mass/Vol] 0.0 mg/dL Normal 0.0-0.3 [facility] Comment on above: Performed By: #### B GLU #### [place] [address] [place] Protein [Mass/Vol] 8.3 g/dL High 6.3-8.2 [facility] Comment on above: Performed By: #### B GLU #### [facility] [address] [place], [place] Albumin [Mass/Vol] 4.0 g/dL Normal 3.5-5.0 [facility] Comment on above: Performed By: #### B GLU #### [facility] [address] [place], [place] Basic Metabolic Panelon 03-2 Calcium [Mass/Vol] 8.9 mg/dL Normal 8.4-10.4 [facility] Comment on above: Performed By: #### B GLU #### [place] [address] [place], [place] Anion gap [Moles/Vol] 5 mmol/L Normal 3-13 [facility] Comment on above: Performed By: #### B GLU #### [place] [address] [place] CO2 [Moles/Vol] 33 mmol/L High 22-30 [facility] Comment on above: Performed By: #### B GLU #### [place] [address] [place] Creatinine [Mass/Vol] 0.51 mg/dL Low 0.52-1.25 [facility] Comment on above: Performed By: #### B GLU #### [place] [address] [place], [place] eGFR OTHER > 90.0 Normal >60 [facility] Comment on above: Result Comment: KDIG O guidelines provide the following GFR categories: Stage GFR(ml/min/1.73 m2) Terms G1 >=90 Normal or high G2 60-89 Mildly decreased* G3a 45-59 Mildly to moderately decreased G3b 30-44 Moderately to severely decreased G4 15-29 Severely decreased G5 <15 Kidney failure *Relative to young adult level. In the absence of evidence of kidney damage, neither GFR category G1 nor G2 fulfill the criteria for CKD. The CKD-EPI equation is validated in individuals 18 years of age and older. Currently the best equation for estimating glomerular filtration rate (GFR) from serum creatinine in children is the Bedside Meza equation. It is less accurate in patients with extremes of muscle mass, restriction of dietary protein, ingestion of creatine, extra-renal metabolism of creatinine, or treatment with medications that affect renal tubular creatinine secretion. Performed By: #### B GLU #### [facility] [address] [place] [address] GFR/1.73 sq M.predicted among blacks MDRD (S/P/Bld) [Vol rate/Area] mL/min/{1.73_m2} Normal >60 [facility] Comment on above: Performed By: #### B GLU #### [place] [address] [place] [address] Glucose [Mass/Vol] 584 mg/dL Critically high 70-100 [facility] Comment on above: Performed By: #### B GLU #### [place] [address] [place] Urea nitrogen [Mass/Vol] 14 mg/dL Normal 7-20 [facility] Comment on above: Performed By: #### B GLU #### [place] [address] [place] [address] Chloride [Moles/Vol] 92 mmol/L Low 98-107 [facility] Comment on above: Performed By: #### B GLU #### [place] [address] [place] [address] Potassium [Moles/Vol] 4.4 mmol/L Normal 3.5-5.1 [facility] Comment on above: Performed By: #### B GLU #### [place] [address] [place] Sodium [Moles/Vol] 130 mmol/L Low 135-145 [facility] Comment on above: Performed By: #### B GLU #### [place] [address] [place] Anion gap [Moles/Vol] 5 mmol/L 3 - 13 mmol/L [facility] Work Phone: Calcium [Mass/Vol] 8.9 mg/dL 8.4 - 10. 4 mg/dL [facility] Work Phone: [phone] Chloride [Moles/Vol] 92 mmol/L Low 98 - 10 7 mmol/L [facility] Work Phone: [phone] CO2 [Moles/Vol] 33 mmol/L High 22 - 30 mmol/L [facility] Work Phone: [phone] Creatinine [Mass/Vol] 0.51 mg/dL Low 0.52 - 1.25 mg/dL [facility] Work Phone: [phone] EGFR IF NonAfrican Thai >90.0 >60 mL/min [facility] Work Phone: [phone] Comment on above: KDIGO guidelines pro vide the following GFR categories: Stage GFR(ml/min/1.73 m2) Terms G1 >=90 Normal or high G2 60-89 Mildly decreased* G3a 45-59 Mildly to moderately decreased G3b 30-44 Moderately to severely decreased G4 15-29 Severely decreased G5 <15 Kidney failure *Relative to young adult level. In the absence of evidence of kidney damage, neither GFR category G1 nor G2 fulfill the criteria for CKD. The CKD-EPI equation is validated in individuals 18 years of age and older. Currently the best equation for estimating glomerular filtration rate (GFR) from serum creatinine in children is the Bedside Meza equation. It is less accurate in patients with extremes of muscle mass, restriction of dietary protein, ingestion of creatine, extra-renal metabolism of creatinine, or treatment with medications that affect renal tubular creatinine secretion. GFR/1.73 sq M predicted among blacks MDRD (S/P/Bld) [Vol rate/Area] mL/min/{1.73_m2} >60 mL/min [facility] Work Phone: [phone] Glucose [Mass/Vol] 584 mg/dL Critically high 70 - 1 00 mg/dL [facility] Work Phone: [phone] Interpretation and review of laboratory results Abnormal [facility] Work Phone: [phone] Potassium [Moles/Vol] 4.4 mmol/L 3.5 - 5.1 mmol/L [facility] Work Phone: [phone] Sodium [Moles/Vol] 130 mmol/L Low 135 - 145 mmol/L [facility] Work Phone: [phone] Urea nitrogen [Mass/Vol] 14 mg/dL 7 - 20 mg/dL [facility] Work Phone: Test Performed by [facility], [address] [place] [address] [facility] Work Phone: CR Chest Portableon 09-14-19 21 CR Chest Portable Patient Name: DOREEN DENISE Diagnostic Radiology ACCESSION EXAM DATE/TIME PROCEDURE ORDERING PROVIDER [id number] 09/13/2020 09:23 EDT CR Chest Portable MD ALBRECHT VIJAY CPT code 60663 Reason For Exam (CR Chest Portable) rib injury Report CHEST: CLINICAL INDICATION: Rib injury TECHNIQUE: AP portable chest COMPARISON: 08/29/2020 FINDINGS: The cardiomediastinal silhouette appears unchanged from the prior exam. A left PICC terminates overlying the lower SVC. No consolidation or pulmonary edema. No pneumothorax. There is no sizable pleural effusion. The osseous structures are unremarkable. IMPRESSION: No displaced rib fracture or pneumothorax. Report Dictated on Final Dictated: 09/13/2020 9:27 am Dictating Physician: MD VELA NICHOLAS Signed Date and Time: 09/13/2020 9:30 am Signed by: MD VELA NICHOLAS Transcribed Date and Time: 09/13/2020 9:27 Normal [facility] Glucose,Bedsideon 09-13-2020 Glucose [Mass/Vol] 281 mg/dL High 70-100 [facility] Comment on above: Result Comment: Test performed by glucose meter. Results may be 10%-15% lower than serum/plasma values. (CLIA ID [id number]) Performed By: #### B GLU #### [address] [address] POCT Glucoseon 09-13-2020 Glucose [Mass/Vol] 281 mg/dL High 70 - 100 mg/dL [facility] Work Phone: Comment on above: Test performed by gl ucose meter. Results may be 10%-15% lower than serum/plasma values. (CLIA ID [id number]) Interpretation and review of laboratory results Abnormal [employer] Work Phone: Test Performed by [employer], [address] [place] [address] [employer] Work Phone: Troponin Ion 09-13-2020 Troponin I.cardiac [Mass/Vol] ng/mL Normal 0.000-0.03 4 [facility] Comment on above: Result Comment: . Performed By: #### B GLU #### [facility] [address] [place] [address] Troponin x1on 09-13-2020 Troponin I.cardiac [Mass/Vol] ng/mL 0.000 - 0.034 ng/mL [employer] Work Phone: Comment on above: . Test Performed by [employer], [address] [place] [address] [employer] Work Phone: XR CHEST PORTABLEon 09-14-19 [place] Results From [facility] - 09/13/2020 9:31 AM EDT Patient Name: DOREEN DENISE Diagnostic Radiology ACCESSION EXAM DATE/TIME PROCEDURE ORDERING PROVIDER [id number] 09/13/2020 09:23 EDT CR Chest Portable MD ALBRECHT VIJAY CPT code 51710 Reason For Exam (CR Chest Portable) rib injury Report CHEST: CLINICAL INDICATION: Rib injury TECHNIQUE: AP portable chest COMPARISON: 08/29/2020 FINDINGS: The cardiomediastinal silhouette appears unchanged from the prior exam. A left PICC terminates overlying the lower SVC. No consolidation or pulmonary edema. No pneumothorax. There is no sizable pleural effusion. The osseous structures are unremarkable. IMPRESSION: No displaced rib fracture or pneumothorax. Report Dictated on --- Final --- Dictated: 09/13/2020 9:27 am Dictating Physician: MD VELA NICHOLAS Signed Date and Time: 09/13/2020 9:30 am Signed by: MD VELA NICHOLAS Transcribed Date and Time: 09/13/2020 9:27 [employer] Work Phone: Patient Name: DOREEN DENISE Diagnostic Radiology ACCESSION EXAM DATE/TIME PROCEDURE ORDERING PROVIDER [id number] 09/13/2020 09:23 EDT CR Chest Portable MD ALBRECHT VIJAY CPT code 57160 Reason For Exam (CR Chest Portable) rib injury Report CHEST: CLINICAL INDICATION: Rib injury TECHNIQUE: AP portable chest COMPARISON: 08/29/2020 FINDINGS: The cardiomediastinal silhouette appears unchanged from the prior exam. A left PICC terminates overlying the lower SVC. No consolidation or pulmonary edema. No pneumothorax. There is no sizable pleural effusion. The osseous structures are unremarkable. IMPRESSION: No displaced rib fracture or pneumothorax. Report Dictated on --- Final --- Dictated: 09/13/2020 9:27 am Dictating Physician: MD VELA NICHOLAS Signed Date and Time: 09/13/2020 9:30 am Signed by: MD VELA NICHOLAS Transcribed Date and Time: 09/13/2020 9:27 [employer] Work Phone: CBC WITH AUTO DIFFERENTIALon 09-10-2020 Absolute Baso # 0.1 10*3/uL 0.0 - 0.2 10*3/uL [facility] Work Phone: [phone] Absolute Neut # 6.4 10*3/uL 1.8 - 7.0 10*3/uL [facility] Work Phone: [phone] Basophils/100 WBC (Bld) 0.6 % 0.0 - 2.0 % [facility] Work Phone: Eosinophils (Bld) [#/Vol] 0.2 10*3/uL 0.0 - 0.5 10*3/uL [facility] Work Phone: Eosinophils/100 WBC (Bld) 2.4 % 1.0 - 6.0 % [facility] Work Phone: Erythrocyte distribution width (RBC) [Ratio] 16.7 % High 11.5 - 14.5 % [facility] Work Phone: 1) 222 Granulocytes/100 WBC (Bld) 74.4 % 40.0 - 80.0 % [employer] Work Phone: 1) 222 Hematocrit (Bld) [Volume fraction] 31.6 % Low 35.0 - 47.0 % [employer] Work Phone: 1) 222 Hemoglobin (Bld) [Mass/Vol] 10.6 g/dL Low 11.7 - 16.0 g/dL [employer] Work Phone: 1) 222 Interpretation and review of laboratory results Abnormal [employer] Work Phone: 1) 222 Lymphocytes (Bld) [#/Vol] 1.3 10*3/uL 1.0 - 4.3 10*3/uL [employer] Work Phone: 1) 222 Lymphocytes/100 WBC (Bld) 15.0 % Low 20.0 - 40.0 % [employer] Phone: 1) 222 MCH (RBC) [Entitic mass] 28.6 pg 26.0 - 34.0 pg [employer] Work Phone: 1) 222 MCHC (RBC) [Mass/Vol] 33.6 % 32.0 - 36.0 % [employer] Phone: 1) 222 MCV (RBC) [Entitic vol] 85.4 fL 79.0 - 98.0 fL [employer] Phone: 1) 222 Monocytes (Bld) [#/Vol] 0.7 10*3/uL 0.0 - 0.8 10*3/uL [employer] Work Phone: 1) 222 Monocytes/100 WBC (Bld) 7.6 % 2.0 - 10.0 % [employer] Phone: 1) 222 Platelet mean volume (Bld) [Entitic vol] 8.0 fL 7.4 - 10.4 fL [employer] Work Phone: 1) 222 Platelets (Bld) [#/Vol] 284 10*3/uL 140 - 440 10*3/uL [employer] Work Phone: 1) 222 RBC (Bld) [#/Vol] 3.70 10*6/uL Low 3.80 - 5.20 10*6/uL [employer] Work Phone: 1 WBC (Bld) [#/Vol] 8.7 10*3/uL 3.6 - 10.7 10*3/uL [employer] Work Phone: 1 Test Performed by [employer], [address] [place] [address] [employer] Work Phone: 1 HEPATIC FUNCTION PANELon Albumin [Mass/Vol] 3.7 g/dL 3.5 - 5.0 g/dL [employer] Work Phone: 1 ALP [Catalytic activity/Vol] 138 U/L High 38 - 126 U/L [employer] Work Phone: 1 ALT [Catalytic activity/Vol] 12 U/L 0 - 34 U/L [employer] Work Phone: Comment on above: The ALT test is perf ormed by an updated assay method. Please note that the reference intervals have been changed and are now sex specific. AST [Catalytic activity/Vol] 36 U/L 15 - 46 U/L [employer] Work Phone: 1 Bilirubin Ql (U) 0.3 mg/dL 0.2 - 1.3 mg/dL [employer] Work Phone: Bilirubin.direct [Mass/Vol] 0.0 mg/dL 0.0 - 0.3 mg/dL [employer] Work Phone: 1 Interpretation and review of laboratory results Abnormal [facility] Work [facility]: Protein [Mass/Vol] 8.2 g/dL 6.3 - 8.2 g/dL [employer] Work Phone: Test Performed by [employer], [facility] [place] [address] [employer] Work Phone: [phone] Hemogram w/ Autodiffon 09-10 Abs Baso Cnt 0.1 10*3/uL Normal 0.0-0.2 [facility] Comment on above: Performed By: #### H EMDF, LFT3 #### [facility] [place] [address] Abs Neutrophile Cnt 6.4 10*3/uL Normal 1.8-7.0 [facility] Comment on above: Performed By: #### H ROBERT LFT3 #### [address] Basophils/100 WBC (Bld) 0.6 % Normal 0.0-2.0 [facility] Comment on above: Performed By: #### H ROBERT LFT3 #### [address] [address] [place], [place] Eosinophils (Bld) [#/Vol] 0.2 10*3/uL Normal 0.0-0.5 [facility] Comment on above: Performed By: #### H ROBERT LFT3 #### [address] Eosinophils/100 WBC (Bld) 2.4 % Normal 1.0-6.0 [facility] Comment on above: Performed By: #### H ROBERT LFT3 #### [address] Erythrocyte distribution width (RBC) [Ratio] 16.7 % High 11.5-14.5 [facility] Comment on above: Performed By: #### H ROBERT LFT3 #### [address] Granulocytes/100 WBC (Bld) 74.4 % Normal 40.0-80.0 [facility] Comment on above: Performed By: #### H ROBERT LFT3 #### [address] [place], [place] Hematocrit (Bld) [Volume fraction] 31.6 % Low 35.0-47.0 [facility] Comment on above: Performed By: #### H EMDF LFT3 #### [address] [place] Hemoglobin (Bld) [Mass/Vol] 10.6 g/dL Low 11.7-16.0 [facility] Comment on above: Performed By: #### H EMDF LFT3 #### [address] [place] [address] Lymphocytes (Bld) [#/Vol] 1.3 10*3/uL Normal 1.0-4.3 [facility] Comment on above: Performed By: #### H ROBERT LFT3 #### [facility] [address] [place] [address] Lymphocytes/100 WBC (Bld) 15.0 % Low 20.0-40.0 [facility] Comment on above: Performed By: #### H ROBERT LFT3 #### [facility] [address] [place] [address] MCH (RBC) [Entitic mass] 28.6 pg Normal 26.0-34.0 [facility] Comment on above: Performed By: #### H ROBERT LFT3 #### [address] [place] [address] MCHC 33.6 % Normal 32.0-36.0 [facility] Comment on above: Performed By: #### H ROBERT LFT3 #### [facility] [address] [place] [address] MCV (RBC) [Entitic vol] 85.4 fL Normal 79.0-98.0 [facility] Comment on above: Performed By: #### H ROBERT LFT3 #### [address] [place] [address] Monocytes (Bld) [#/Vol] 0.7 10*3/uL Normal 0.0-0.8 [facility] Comment on above: Performed By: #### H EMDElías, LFT3 #### [facility] [address] [place] [address] Monocytes/100 WBC (Bld) 7.6 % Normal 2.0-10.0 [facility] Comment on above: Performed By: #### H EMDElías LFT3 #### [facility] [address] [place] [address] Platelet mean volume (Bld) [Entitic vol] 8.0 fL Normal 7.4-10.4 [facility] Comment on above: Performed By: #### H ROBERT LFT3 #### [facility] [address] [place], [place] Platelets (Bld) [#/Vol] 284 10*3/uL Normal 140-440 [facility] Comment on above: Performed By: #### H EMDF, LFT3 #### [facility] [address] [place], [place] RBC (Bld) [#/Vol] 3.70 10*6/uL Low 3.80-5.20 [facility] Comment on above: Performed By: #### H EMDF, LFT3 #### [facility] [address] [place], [place] WBC (Bld) [#/Vol] 8.7 10*3/uL Normal 3.6-10.7 [facility] Comment on above: Performed By: #### H EMDF, LFT3 #### [address] [place], [place] Hepatic Functionon 1 ALP [Catalytic activity/Vol] 138 U/L High 38-126 [facility] Comment on above: Performed By: #### H EMDF, LFT3 #### [address] [place], [place] ALT [Catalytic activity/Vol] 12 U/L Normal 0-34 [facility] Comment on above: Result Comment: The ALT test is performed by an updated assay method. Please note that the reference intervals have been changed and are now sex specific. Performed By: #### H EMDF, LFT3 #### [facility] [address] [place], [place] AST [Catalytic activity/Vol] 36 U/L Normal 15-46 [facility] Comment on above: Performed By: #### H EMDF, LFT3 #### [address] [place], [place] Bilirubin [Mass/Vol] 0.3 mg/dL Normal 0.2-1.3 [facility] Comment on above: Performed By: #### H EMDF, LFT3 #### [address] [place], [place] Bilirubin.indirect [Mass/Vol] 0.0 mg/dL Normal 0.0-0.3 [facility] Comment on above: Performed By: #### H ROBERT LFT3 #### [facility] [address] [place], [place] Protein [Mass/Vol] 8.2 g/dL Normal 6.3-8.2 [facility] Comment on above: Performed By: #### H KIARAF LFT3 #### [facility] [address] [place] [place], [place] Albumin [Mass/Vol] 3.7 g/dL Normal 3.5-5.0 [facility] Comment on above: Performed By: #### H ROBERT LFT3 #### [facility] [address] [place], [place] CBC WITH AUTO DIFFERENTIALon 09-03-2020 Absolute Baso # 0.0 10*3/uL 0.0 - 0.2 10*3/uL [employer] Work Phone: ) 222 Absolute Neut # 7.3 10*3/uL High 1.8 - 7.0 10*3/uL [employer] Work Phone: ) 222 Basophils/100 WBC (Bld) 0.3 % 0.0 - 2.0 % [employer] Work Phone: ) 222 Eosinophils (Bld) [#/Vol] 0.1 10*3/uL 0.0 - 0.5 10*3/uL [employer] Work Phone: ) 222 Eosinophils/100 WBC (Bld) 0.6 % Low 1.0 - 6.0 % [employer] Work Phone: [phone] Erythrocyte distribution width (RBC) [Ratio] 16.0 % High 11.5 - 14.5 % [employer] Work Phone: ) 222 Granulocytes/100 WBC (Bld) 82.8 % High 40.0 - 80.0 % [employer] Work Phone: [phone] Hematocrit (Bld) [Volume fraction] 27.6 % Low 35.0 - 47.0 % [employer] Work Phone: ) 222 Hemoglobin (Bld) [Mass/Vol] 9.2 g/dL Low 11.7 - 16.0 g/dL [employer] Work Phone: 1() 222 Interpretation and review of laboratory results Abnormal [employer] Work Phone: 1() 222 Lymphocytes (Bld) [#/Vol] 1.0 10*3/uL 1.0 - 4.3 10*3/uL [facility] Work Phone: 1() 222 Lymphocytes/100 WBC (Bld) 11.0 % Low 20.0 - 40.0 % [facility] Work Phone: 1() 222 MCH (RBC) [Entitic mass] 28.6 pg 26.0 - 34.0 pg [facility] Work Phone: 1() 222 MCHC (RBC) [Mass/Vol] 33.3 % 32.0 - 36.0 % [employer] Work Phone: 1() 222 MCV (RBC) [Entitic vol] 86.0 fL 79.0 - 98.0 fL [employer] Work Phone: () 222 Monocytes (Bld) [#/Vol] 0.5 10*3/uL 0.0 - 0.8 10*3/uL [facility] Work Phone: 1() 222 Monocytes/100 WBC (Bld) 5.3 % 2.0 - 10.0 % [employer] Work Phone: 1() 222 Platelet mean volume (Bld) [Entitic vol] 7.7 fL 7.4 - 10.4 fL [employer] Work Phone: 1() 222 Platelets (Bld) [#/Vol] 307 10*3/uL 140 - 440 10*3/uL [facility] Work Phone: 1() 222 RBC (Bld) [#/Vol] 3.21 10*6/uL Low 3.80 - 5.20 10*6/uL [facility] Work Phone: 1() 222 WBC (Bld) [#/Vol] 8.8 10*3/uL 3.6 - 10.7 10*3/uL [facility] Work Phone: 1() 222 Test Performed by [facility], [address] [place] [address] [facility] Work Phone: 1() 222 HEPATIC FUNCTION PANELon Albumin [Mass/Vol] 3.5 g/dL 3.5 - 5.0 g/dL [employer] Work Phone: ALP [Catalytic activity/Vol] 119 U/L 38 - 126 U/L [employer] Work Phone: ALT [Catalytic activity/Vol] 12 U/L 0 - 34 U/L [employer] Work Phone: Comment on above: The ALT test is perf ormed by an updated assay method. Please note that the reference intervals have been changed and are now sex specific. AST [Catalytic activity/Vol] 29 U/L 15 - 46 U/L [employer] Work Phone: Bilirubin Ql (U) 0.3 mg/dL 0.2 - 1.3 mg/dL [employer] Work Phone: Bilirubin.direct [Mass/Vol] 0.0 mg/dL 0.0 - 0.3 mg/dL [employer] Work Phone: Protein [Mass/Vol] 7.5 g/dL 6.3 - 8.2 g/dL [employer] Work Phone: Test Performed by [facility], [address] [place] [address] [facility] Work Phone: Hemogram w/ Autodiffon 09-03 Abs Baso Cnt 0.0 10*3/uL Normal 0.0-0.2 [facility] Comment on above: Performed By: #### B GLU #### [facility] [employer] [address] [address] Abs Neutrophile Cnt 7.3 10*3/uL High 1.8-7.0 [facility] Comment on above: Performed By: #### B GLU #### [address] [address] Basophils/100 WBC (Bld) 0.3 % Normal 0.0-2.0 [facility] Comment on above: Performed By: #### B GLU #### [address] Eosinophils (Bld) [#/Vol] 0.1 10*3/uL Normal 0.0-0.5 [facility] Comment on above: Performed By: #### B GLU #### [facility] [address] [place], [place] Eosinophils/100 WBC (Bld) 0.6 % Low 1.0-6.0 [facility] Comment on above: Performed By: #### B GLU #### [address] [place], [place] Erythrocyte distribution width (RBC) [Ratio] 16.0 % High 11.5-14.5 [facility] Comment on above: Performed By: #### B GLU #### [address] [place], [place] Granulocytes/100 WBC (Bld) 82.8 % High 40.0-80.0 [facility] Comment on above: Performed By: #### B GLU #### [address] [place], [place] Hematocrit (Bld) [Volume fraction] 27.6 % Low 35.0-47.0 [facility] Comment on above: Performed By: #### B GLU #### [address] [place], [place] Hemoglobin (Bld) [Mass/Vol] 9.2 g/dL Low 11.7-16.0 [facility] Comment on above: Performed By: #### B GLU #### [address] [place], [place] Lymphocytes (Bld) [#/Vol] 1.0 10*3/uL Normal 1.0-4.3 [facility] Comment on above: Performed By: #### B GLU #### [address] [place], [place] Lymphocytes/100 WBC (Bld) 11.0 % Low 20.0-40.0 [facility] Comment on above: Performed By: #### B GLU #### [address] [place], [place] MCH (RBC) [Entitic mass] 28.6 pg Normal 26.0-34.0 [facility] Comment on above: Performed By: #### B GLU #### [facility] [address] [place], [place] MCHC 33.3 % Normal 32.0-36.0 [facility] Comment on above: Performed By: #### B GLU #### [facility] [address] [place], [place] MCV (RBC) [Entitic vol] 86.0 fL Normal 79.0-98.0 [facility] Comment on above: Performed By: #### B GLU #### [address] [place], [place] Monocytes (Bld) [#/Vol] 0.5 10*3/uL Normal 0.0-0.8 [facility] Comment on above: Performed By: #### B GLU #### [address] [place], [place] Monocytes/100 WBC (Bld) 5.3 % Normal 2.0-10.0 [facility] Comment on above: Performed By: #### B GLU #### [address] [place], [place] Platelet mean volume (Bld) [Entitic vol] 7.7 fL Normal 7.4-10.4 [facility] Comment on above: Performed By: #### B GLU #### [facility] [address] [place], [place] Platelets (Bld) [#/Vol] 307 10*3/uL Normal 140-440 [facility] Comment on above: Performed By: #### B GLU #### [facility] [address] [place], [place] RBC (Bld) [#/Vol] 3.21 10*6/uL Low 3.80-5.20 [facility] Comment on above: Performed By: #### B GLU #### [address] [place], [place] WBC (Bld) [#/Vol] 8.8 10*3/uL Normal 3.6-10.7 [facility] Comment on above: Performed By: #### B GLU #### [facility] [address] [place], [place] Hepatic Functionon ALT [Catalytic activity/Vol] 12 U/L Normal 0-34 [facility] Comment on above: Result Comment: The ALT test is performed by an updated assay method. Please note that the reference intervals have been changed and are now sex specific. Performed By: #### B GLU #### [facility] [address] [place], [place] ALP [Catalytic activity/Vol] 119 U/L Normal 38-126 [facility] Comment on above: Performed By: #### B GLU #### [facility] [address] [place], [place] AST [Catalytic activity/Vol] 29 U/L Normal 15-46 [facility] Comment on above: Performed By: #### B GLU #### [facility] [address] [place], [place] Bilirubin [Mass/Vol] 0.3 mg/dL Normal 0.2-1.3 [facility] Comment on above: Performed By: #### B GLU #### [facility] [address] [place], [place] Bilirubin.indirect [Mass/Vol] 0.0 mg/dL Normal 0.0-0.3 [facility] Comment on above: Performed By: #### B GLU #### [facility] [address] [place], [place] Protein [Mass/Vol] 7.5 g/dL Normal 6.3-8.2 [facility] Comment on above: Performed By: #### B GLU #### [facility] [address] [place], [place] Albumin [Mass/Vol] 3.5 g/dL Normal 3.5-5.0 [facility] Comment on above: Performed By: #### B GLU #### [facility] [address] [place], [place] CULTURE BLOODon 09-02-2020 Microscopic examination of blood, culture CULTURE BLOOD --> Status: F No growth at 5 days. Normal [facility] Comment on above: Performed By: #### C MP3M, MG3 #### [facility] [employer] [facility] [address] [place] [address] CULTURE BLOOD (Two)on 2020 Microscopic examination of blood, culture CULTURE BLOOD (Two) --> Status: F No growth at 5 days. Normal [facility] [employer] [facility] Comment on above: Performed By: #### C MP3M, MG3 #### [facility] [address] [place] [address] CR Chest Portableon 08-30-19 21 CR Chest Portable Patient Name: DOREEN DENISE Diagnostic Radiology ACCESSION EXAM DATE/TIME PROCEDURE ORDERING PROVIDER [id number] 08/29/2020 18:13 EST CR Chest Portable ELVER BONILLA CPT code 05714 Reason For Exam (CR Chest Portable) line placement Report CHEST PORTABLE CLINICAL INDICATION: line placement TECHNIQUE: Single, portable chest x-ray. COMPARISON: None. FINDINGS: Patient rotated to the right. Left PICC catheter tip projects over the SVC-RA junction. Cardiac silhouette within normal limits. Lungs show interstitial prominence centrally may be chronic. Probable small bilateral pleural effusions. No focal consolidation or apparent pneumothorax. Degenerative change in the thoracic spine. IMPRESSION: 1. Left PICC catheter placement and position, as reported. 2. Possible small bilateral pleural effusions. Report Dictated on Workstation: EDWARD Final Dictated: 08/29/2020 6:06 pm Dictating Physician: MD REYNA WENDELL Signed Date and Time: 08/29/2020 6:10 pm Signed by: MD REYNA WENDELL Transcribed Date and Time: 08/29/2020 6:06 Normal [facility] Glucose,Bedsideon 08-29-2020 Glucose [Mass/Vol] 258 mg/dL High 70-100 [facility] Comment on above: Result Comment: Test performed by glucose meter. Results may be 10%-15% lower than serum/plasma values. (CLIA ID [id number]) Performed By: #### B GLU #### [employer] [address] [place] [address] Glucose [Mass/Vol] 99 mg/dL Normal 70-100 [facility] Comment on above: Result Comment: Test performed by glucose meter. Results may be 10%-15% lower than serum/plasma values. (CLIA ID [id number]) Performed By: #### B GLU #### [address] [place] [address] POCT Glucoseon 08-29-2020 Glucose [Mass/Vol] 258 mg/dL High 70 - 100 mg/dL [facility] Work Phone: Comment on above: Test performed by gl ucose meter. Results may be 10%-15% lower than serum/plasma values. (CLIA ID [id number]) Interpretation and review of laboratory results Abnormal [facility] Work Phone: Test Performed by [facility], [address] [place] [id number] [place], [place] [address]A Work Phone: Glucose [Mass/Vol] 99 mg/dL 70 - 100 mg/dL [facility] Work Phone: Comment on above: Test performed by gl ucose meter. Results may be 10%-15% lower than serum/plasma values. (CLIA ID [id number]) Test Performed by [facility], [address] [place] [id number] [place], [place] [address]A Work Phone: Glucose,Bedsideon 08-28-2020 Glucose [Mass/Vol] 153 mg/dL High 70-100 [facility] Comment on above: Result Comment: Test performed by glucose meter. Results may be 10%-15% lower than serum/plasma values. (CLIA ID [id number]) Performed By: #### B GLU #### [address] [place] [address] Glucose [Mass/Vol] 149 mg/dL High 70-100 [facility] Comment on above: Result Comment: Test performed by glucose meter. Results may be 10%-15% lower than serum/plasma values. (CLIA ID [id number]) Performed By: #### B GLU #### [facility] [address] [place] [address] Glucose [Mass/Vol] 196 mg/dL High 70-100 [facility] Comment on above: Result Comment: Test performed by glucose meter. Results may be 10%-15% lower than serum/plasma values. (CLIA ID [id number]) Performed By: #### B GLU #### [facility] [address] [place] [address] Glucose [Mass/Vol] 339 mg/dL High 70-100 [facility] Comment on above: Result Comment: Test performed by glucose meter. Results may be 10%-15% lower than serum/plasma values. (CLIA ID [id number]) Performed By: #### B GLU #### [facility] [address] [place] [address] POCT Glucoseon 08-28-2020 Glucose [Mass/Vol] 153 mg/dL High 70 - 100 mg/dL [facility] Work Phone: Comment on above: Test performed by gl ucose meter. Results may be 10%-15% lower than serum/plasma values. (CLIA ID [id number]) Interpretation and review of laboratory results Abnormal [facility] Work Phone: Test Performed by [facility] [employer] [facility], [address] [place] [address] [facility] Work Phone: Glucose [Mass/Vol] 149 mg/dL High 70 - 100 mg/dL [facility] Work Phone: Comment on above: Test performed by gl ucose meter. Results may be 10%-15% lower than serum/plasma values. (CLIA ID [id number]) Interpretation and review of laboratory results Abnormal [facility] Work Phone: Test Performed by [employer], [address] [place] [id number] [facility] Work Phone: Glucose [Mass/Vol] 196 mg/dL High 70 - 100 mg/dL [facility] Work Phone: Comment on above: Test performed by gl ucose meter. Results may be 10%-15% lower than serum/plasma values. (CLIA ID [id number]) Interpretation and review of laboratory results Abnormal [facility] Work Phone: 1() 222 Test Performed [place] [address] [facility] Work Phone: 1 Glucose [Mass/Vol] 339 mg/dL High 70 - 100 mg/dL [facility] Work Phone: 1( Comment on above: Test performed by [employer] ucose meter. Results may be 10%-15% lower than serum/plasma values. (CLIA ID [id number]) Interpretation and review of laboratory results Abnormal [facility] Work Phone: 1() Test Performed [place] [address] [facility] Work Phone: 1() CBC Auto Differentialon 08-18 Absolute Baso # 0.0 10*3/uL 0.0 - 0.2 10*3/uL [facility] Work Phone: () 222 Absolute Neut # 7.7 10*3/uL High 1.8 - 7.0 10*3/uL [facility] Work Phone: () 222 Basophils/100 WBC (Bld) 0.2 % 0.0 - 2.0 % [facility] Work Phone: 222 Eosinophils (Bld) [#/Vol] 0.0 10*3/uL 0.0 - 0.5 10*3/uL [facility] Work Phone: ) 222 Eosinophils/100 WBC (Bld) 0.2 % Low 1.0 - 6.0 % [facility] Work Phone: () 222 Erythrocyte distribution width (RBC) [Ratio] 15.4 % High 11.5 - 14.5 % [facility] Work Phone: () 222 Granulocytes/100 WBC (Bld) 86.1 % High 40.0 - 80.0 % [facility] Work Phone: () 222 Hematocrit (Bld) [Volume fraction] 23.2 % Low 35.0 - 47.0 % [facility] Work Phone: 222 Hemoglobin (Bld) [Mass/Vol] 8.0 g/dL Low 11.7 - 16.0 g/dL [facility] Work Phone: [phone] Interpretation and review of laboratory results Abnormal [facility] Work Phone: [phone] Lymphocytes (Bld) [#/Vol] 0.7 10*3/uL Low 1.0 - 4.3 10*3/uL [employer] Work Phone: [phone] Lymphocytes/100 WBC (Bld) 8.3 % Low 20.0 - 40.0 % [facility] Work Phone: [phone] MCH (RBC) [Entitic mass] 29.5 pg 26.0 - 34.0 pg [employer] Work Phone: [phone] MCHC (RBC) [Mass/Vol] 34.4 % 32.0 - 36.0 % [employer] Work Phone: [phone] MCV (RBC) [Entitic vol] 85.7 fL 79.0 - 98.0 fL [employer] Work Phone: [phone] Monocytes (Bld) [#/Vol] 0.5 10*3/uL 0.0 - 0.8 10*3/uL [employer] Work Phone: [phone] Monocytes/100 WBC (Bld) 5.2 % 2.0 - 10.0 % [employer] Work Phone: [phone] Platelet mean volume (Bld) [Entitic vol] 8.5 fL 7.4 - 10.4 fL [facility] Work Phone: [phone] Platelets (Bld) [#/Vol] 169 10*3/uL 140 - 440 10*3/uL [facility] Work Phone: [phone] RBC (Bld) [#/Vol] 2.71 10*6/uL Low 3.80 - 5.20 10*6/uL [employer] Work Phone: [phone] WBC (Bld) [#/Vol] 8.9 10*3/uL 3.6 - 10.7 10*3/uL [employer] Work Phone: [phone] Test Performed by [facility], [address] [place] [id number] [facility] Work Phone: [phone] Comp Panel with Mg Reflexon 08-27-2020 Calcium [Mass/Vol] 7.4 mg/dL Low 8.4-10.4 [facility] Comment on above: Performed By: #### C MP3M, MG3 #### [facility] [address] [place], [place] ALP [Catalytic activity/Vol] 105 U/L Normal 38-126 [facility] Comment on above: Performed By: #### C MP3M, MG3 #### [facility] [address] [place], [place] ALT [Catalytic activity/Vol] 14 U/L Normal 0-34 [facility] Comment on above: Result Comment: The ALT test is performed by an updated assay method. Please note that the reference intervals have been changed and are now sex specific. Performed By: #### C MP3M, MG3 #### [facility] [address], [place] Anion gap [Moles/Vol] 5 mmol/L Normal 3-13 [facility] Comment on above: Performed By: #### C MP3M, MG3 #### [facility] [address] [place], [place] AST [Catalytic activity/Vol] 30 U/L Normal 15-46 [facility] Comment on above: Performed By: #### C MP3M, MG3 #### [facility] [address] [place], [place] Bilirubin [Mass/Vol] 0.7 mg/dL Normal 0.2-1.3 [facility] Comment on above: Performed By: #### C MP3M, MG3 #### [facility] [address], [place] CO2 [Moles/Vol] 27 mmol/L Normal 22-30 [facility] Comment on above: Performed By: #### C MP3M, MG3 #### [facility] [address], [place] Creatinine [Mass/Vol] 0.49 mg/dL Low 0.52-1.25 [facility] Comment on above: Performed By: #### C MP3M, MG3 #### [facility] [address] [place] [address] eGFR OTHER > 90.0 Normal >60 [facility] Comment on above: Result Comment: KDIG O guidelines provide the following GFR categories: Stage GFR(ml/min/1.73 m2) Terms G1 >=90 Normal or high G2 60-89 Mildly decreased* G3a 45-59 Mildly to moderately decreased G3b 30-44 Moderately to severely decreased G4 15-29 Severely decreased G5 <15 Kidney failure *Relative to young adult level. In the absence of evidence of kidney damage, neither GFR category G1 nor G2 fulfill the criteria for CKD. The CKD-EPI equation is validated in individuals 18 years of age and older. Currently the best equation for estimating glomerular filtration rate (GFR) from serum creatinine in children is the Bedside Meza equation. It is less accurate in patients with extremes of muscle mass, restriction of dietary protein, ingestion of creatine, extra-renal metabolism of creatinine, or treatment with medications that affect renal tubular creatinine secretion. Performed By: #### C MP3M, MG3 #### [facility] [address], [place] GFR/1.73 sq M.predicted among blacks MDRD (S/P/Bld) [Vol rate/Area] mL/min/{1.73_m2} Normal >60 [facility] Comment on above: Performed By: #### C MP3M, MG3 #### [facility] [address] [place] [address] Glucose [Mass/Vol] 285 mg/dL High 70-100 [facility] Comment on above: Performed By: #### C MP3M, MG3 #### [facility] [address] [place], [place] Protein [Mass/Vol] 5.7 g/dL Low 6.3-8.2 [facility] Comment on above: Performed By: #### C MP3M, MG3 #### [facility] [address] [place] [address] Urea nitrogen [Mass/Vol] 7 mg/dL Normal 7-20 [facility] Comment on above: Performed By: #### C MP3M, MG3 #### [facility] [address] [place] [address] Albumin [Mass/Vol] 2.6 g/dL Low 3.5-5.0 [facility] Comment on above: Performed By: #### C MP3M, MG3 #### [facility] [address] [place] [address] Chloride [Moles/Vol] 97 mmol/L Low 98-107 [facility] Comment on above: Performed By: #### C MP3M, MG3 #### [facility] [address] [place] [address] Potassium [Moles/Vol] 3.5 mmol/L Normal 3.5-5.1 [facility] Comment on above: Performed By: #### C MP3M, MG3 #### [facility] [address] [place] [address] Sodium [Moles/Vol] 130 mmol/L Low 135-145 [facility] Comment on above: Performed By: #### C MP3M, MG3 #### [facility] [address] [place] [address] Comprehensive Metabolic Pane l w/ Reflex to on 08-27-2020 Albumin [Mass/Vol] 2.6 g/dL Low 3.5 - 5.0 g/dL [facility] Work Phone: [phone] ALP [Catalytic activity/Vol] 105 U/L 38 - 126 U/L [facility] Work [facility]: ALT [Catalytic activity/Vol] 14 U/L 0 - 34 U/L [facility] Work Phone: Comment on above: The ALT test is perf ormed by an updated assay method. Please note that the reference intervals have been changed and are now sex specific. Anion gap [Moles/Vol] 5 mmol/L 3 - 13 mmol/L [facility] Work Phone: AST [Catalytic activity/Vol] 30 U/L 15 - 46 U/L [facility] Work Phone: [phone] Bilirubin Ql (U) 0.7 mg/dL 0.2 - 1.3 mg/dL [facility] Work Phone: [phone] Calcium [Mass/Vol] 7.4 mg/dL Low 8.4 - 10. 4 mg/dL [facility] Work Phone: [phone] Chloride [Moles/Vol] 97 mmol/L Low 98 - 10 7 mmol/L [facility] Work Phone: [phone] CO2 [Moles/Vol] 27 mmol/L 22 - 30 mmol/L [facility] Work Phone: [phone] Creatinine [Mass/Vol] 0.49 mg/dL Low 0.52 - 1.25 mg/dL [facility] Work Phone: [phone] EGFR IF NonAfrican Thai >90.0 >60 mL/min [facility] Work Phone: [phone] Comment on above: KDIGO guidelines pro vide the following GFR categories: Stage GFR(ml/min/1.73 m2) Terms G1 >=90 Normal or high G2 60-89 Mildly decreased* G3a 45-59 Mildly to moderately decreased G3b 30-44 Moderately to severely decreased G4 15-29 Severely decreased G5 <15 Kidney failure *Relative to young adult level. In the absence of evidence of kidney damage, neither GFR category G1 nor G2 fulfill the criteria for CKD. The CKD-EPI equation is validated in individuals 18 years of age and older. Currently the best equation for estimating glomerular filtration rate (GFR) from serum creatinine in children is the Bedside Meza equation. It is less accurate in patients with extremes of muscle mass, restriction of dietary protein, ingestion of creatine, extra-renal metabolism of creatinine, or treatment with medications that affect renal tubular creatinine secretion. GFR/1.73 sq M predicted among blacks MDRD (S/P/Bld) [Vol rate/Area] mL/min/{1.73_m2} >60 mL/min [facility] Work Phone: [phone] Glucose [Mass/Vol] 285 mg/dL High 70 - 100 mg/dL [facility] Work Phone: [phone] Interpretation and review of laboratory results Abnormal [facility] Work Phone: [phone] Potassium [Moles/Vol] 3.5 mmol/L 3.5 - 5.1 mmol/L [facility] Work Phone: [phone] Protein [Mass/Vol] 5.7 g/dL Low 6.3 - 8.2 g/dL [facility] Work Phone: Sodium [Moles/Vol] 130 mmol/L Low 135 - 145 mmol/L [facility] Work Phone: [phone] Urea nitrogen [Mass/Vol] 7 mg/dL 7 - 20 mg/dL [facility] Work Phone: Test Performed by [facility], [address] [place] [address] [facility] Work Phone: [phone] Glucose,Bedsideon 08-27-2020 Glucose [Mass/Vol] 263 mg/dL High 70-100 [facility] Comment on above: Result Comment: Test performed by glucose meter. Results may be 10%-15% lower than serum/plasma values. (CLIA ID [id number]) Performed By: #### B GLU #### [place] [address] [place] [address] Glucose [Mass/Vol] 146 mg/dL High 70-100 [facility] Comment on above: Result Comment: Test performed by glucose meter. Results may be 10%-15% lower than serum/plasma values. (CLIA ID [id number]) Performed By: #### B GLU #### [facility] [address] [place] [address] Glucose [Mass/Vol] 221 mg/dL High 70-100 [facility] Comment on above: Result Comment: Test performed by glucose meter. Results may be 10%-15% lower than serum/plasma values. (CLIA ID [id number]) Performed By: #### B GLU #### [facility] [address] [place] [address] Glucose [Mass/Vol] 283 mg/dL High 70-100 [facility] Comment on above: Result Comment: Test performed by glucose meter. Results may be 10%-15% lower than serum/plasma values. (CLIA ID [id number]) Performed By: #### B GLU #### [facility] [address] [place] [address] Glucose [Mass/Vol] 317 mg/dL High 70-100 [facility] Comment on above: Result Comment: Test performed by glucose meter. Results may be 10%-15% lower than serum/plasma values. (CLIA ID [id number]) Performed By: #### B GLU #### [facility] [address] [place] [address] Hemoglobin A1Con 08-27-2020 Glucose [Mass/Vol] 263 mg/dL Normal [facility] Comment on above: Performed By: #### B GLU #### [address] HbA1c (Bld) [Mass fraction] 10.8 % Abnormal [facility] Comment on above: Result Comment: Norm al less than 5.7% Prediabetes 5.7% to 6.4% Diabetes 6.5% or higher --HgbA1C levels may not be accurate in patients who have renal disease, received recent blood transfusions, are anemic, or who have dyshemoglobinemia. Performed By: #### B GLU #### [place] [address] [place], [place] Hemoglobin A1con 08-27-2020 eAG 263 mg/dL [facility] Work Phone: HbA1c (Bld) [Mass fraction] 10.8 % Abnormal [facility] Work Phone: Comment on above: Normal less than 5.7 % Prediabetes 5.7% to 6.4% Diabetes 6.5% or higher --HgbA1C levels may not be accurate in patients who have renal disease, received recent blood transfusions, are anemic, or who have dyshemoglobinemia. Interpretation and review of laboratory results Abnormal [facility] Work Phone: Test Performed by [facility], [address] [place] [address] [employer] Work Phone: Hemogram w/ Autodiffon 08-27 Abs Baso Cnt 0.0 10*3/uL Normal 0.0-0.2 [facility] Comment on above: Performed By: #### B GLU #### [address] Abs Neutrophile Cnt 7.7 10*3/uL High 1.8-7.0 [facility] Comment on above: Performed By: #### B GLU #### [facility] [address], [place] Basophils/100 WBC (Bld) 0.2 % Normal 0.0-2.0 [facility] Comment on above: Performed By: #### B GLU #### [facility] [address], [place] Eosinophils (Bld) [#/Vol] 0.0 10*3/uL Normal 0.0-0.5 [facility] Comment on above: Performed By: #### B GLU #### [place] [address], [place] Eosinophils/100 WBC (Bld) 0.2 % Low 1.0-6.0 [facility] Comment on above: Performed By: #### B GLU #### [place] [address], [place] Erythrocyte distribution width (RBC) [Ratio] 15.4 % High 11.5-14.5 [facility] Comment on above: Performed By: #### B GLU #### [place] [address], [place] Granulocytes/100 WBC (Bld) 86.1 % High 40.0-80.0 [facility] Comment on above: Performed By: #### B GLU #### [place] [address], [place] Hematocrit (Bld) [Volume fraction] 23.2 % Low 35.0-47.0 [facility] Comment on above: Performed By: #### B GLU #### [place] [address] [place], [place] Hemoglobin (Bld) [Mass/Vol] 8.0 g/dL Low 11.7-16.0 [facility] Comment on above: Performed By: #### B GLU #### [place] [address], [place] Lymphocytes (Bld) [#/Vol] 0.7 10*3/uL Low 1.0-4.3 [facility] Comment on above: Performed By: #### B GLU #### [facility] [address], [place] Lymphocytes/100 WBC (Bld) 8.3 % Low 20.0-40.0 [facility] Comment on above: Performed By: #### B GLU #### [facility] [address], [place] MCH (RBC) [Entitic mass] 29.5 pg Normal 26.0-34.0 [facility] Comment on above: Performed By: #### B GLU #### [facility] [address], [place] MCHC 34.4 % Normal 32.0-36.0 [facility] Comment on above: Performed By: #### B GLU #### [place] [address] [place], [place] MCV (RBC) [Entitic vol] 85.7 fL Normal 79.0-98.0 [facility] Comment on above: Performed By: #### B GLU #### [facility] [address], [place] Monocytes (Bld) [#/Vol] 0.5 10*3/uL Normal 0.0-0.8 [facility] Comment on above: Performed By: #### B GLU #### [facility] [address], [place] Monocytes/100 WBC (Bld) 5.2 % Normal 2.0-10.0 [facility] Comment on above: Performed By: #### B GLU #### [facility] [address], [place] Platelet mean volume (Bld) [Entitic vol] 8.5 fL Normal 7.4-10.4 [facility] Comment on above: Performed By: #### B GLU #### [facility] [address], [place] Platelets (Bld) [#/Vol] 169 10*3/uL Normal 140-440 [facility] Comment on above: Performed By: #### B GLU #### [facility] [address] [place] [address] RBC (Bld) [#/Vol] 2.71 10*6/uL Low 3.80-5.20 [facility] Comment on above: Performed By: #### B GLU #### [facility] [address] [place] [address] WBC (Bld) [#/Vol] 8.9 10*3/uL Normal 3.6-10.7 [facility] Comment on above: Performed By: #### B GLU #### [facility] [address] [place] [address] Magnesiumon 08-27-2020 Magnesium [Mass/Vol] 1.6 mg/dL Normal 1.6-2.3 [facility] Comment on above: Performed By: #### C MP3M, MG3 #### [facility] [address] [place] [address] Magnesium [Mass/Vol] 1.6 mg/dL 1.6 - 2 .3 mg/dL [facility] Work Phone: Test Performed by [facility], [address] [place] [address] [facility] Work Phone: POCT Glucoseon 08-27-2020 Glucose [Mass/Vol] 263 mg/dL High 70 - 100 mg/dL [facility] Work Phone: Comment on above: Test performed by gl ucose meter. Results may be 10%-15% lower than serum/plasma values. (CLIA ID [id number]) Interpretation and review of laboratory results Abnormal [facility] Work Phone: [phone] Test Performed by [facility], [facility] [place] [address] [facility] Work Phone: Glucose [Mass/Vol] 146 mg/dL High 70 - 100 mg/dL [facility] Work Phone: Comment on above: Test performed by gl ucose meter. Results may be 10%-15% lower than serum/plasma values. (CLIA ID [id number]) Interpretation and review of laboratory results Abnormal [facility] Work Phone: Test Performed by [facility], [place] [address] [facility] Work Phone: Glucose [Mass/Vol] 221 mg/dL High 70 - 100 mg/dL [facility] Work Phone: Comment on above: Test performed by gl ucose meter. Results may be 10%-15% lower than serum/plasma values. (CLIA ID [id number]) Interpretation and review of laboratory results Abnormal [facility] Work Phone: Test Performed by [facility], [facility] [address] [place] [address] [facility] Work Phone: Glucose [Mass/Vol] 283 mg/dL High 70 - 100 mg/dL [facility] Work Phone: Comment on above: Test performed by gl ucose meter. Results may be 10%-15% lower than serum/plasma values. (CLIA ID [id number]) Interpretation and review of laboratory results Abnormal [facility] Work Phone: Test Performed by [facility], [facility] [address] [place] [address] [employer] Work Phone: VL DUP LOWER EXTREMITY VENOU S RIGHTon 08-27-2020 [facility] Lower Extremity Venous Duplex Report Patient Howie, : 1960 Study 08/27/2020 Name: Doreen (60yrs) Date: Age: 60 Account: [id number] Gender: F Loc: BP: Ordering Physician: Bertram Mcmillan Senior Manager Quality Assurance: Claritza Rocha RVT Interpreting Physician: Latrell Beckford MD Location: [facility] Indications: R/o dvt , edema, Tx with chemo. Conclusions 1. There is no evidence of acute deep or superficial venous thrombosis noted in the right lower extremity. 2. The left common femoral vein fully compresses and demonstrates normal venous flow. History: Risk factors: Current tobacco use. Hypertension. Diabetes mellitus. Study data: Complete lower extremity venous duplex evaluation. Grayscale 2D imaging, color Doppler imaging, and spectral Doppler analysis. Location: Bedside. Procedure: A vascular evaluation was performed with the patient in the supine position. Images were obtained using a Femasys E9 vascular ultrasound machine. Venous flow and imaging: + +- ------+ + +Location +Overall+Properties + + +- ------+ + +R CFV +Patent +Normal phasicity; spontaneous; + + + +normal augmentation; compressible + + +- ------+ + +R saphenofemoral junction+Patent +Compressible + + +- ------+ + +R profunda femoral +Patent +Spontaneous + + +- ------+ + +R FV - prox. +Patent +Compressible + + +- ------+ + +R FV - mid +Patent +Normal phasicity; spontaneous; + + + +normal augmentation; compressible + + +- ------+ + +R FV - distal +Patent +Compressible + + +- ------+ + +R popliteal +Patent +Normal phasicity; spontaneous; + + + +normal augmentation; compressible + + +- ------+ + +R gastrocnemius +Patent +Compressible + + +- ------+ + +R PTV +Patent +Compressible + + +- ------+ + +R peroneal +Patent +Compressible + + +- ------+ + +R soleal +Patent +Compressible + + +- ------+ + +R GSV +Patent +Compressible + + +- ------+ + +L CFV +Patent +Normal phasicity; spontaneous; + + + +normal augmentation; compressible + + +- ------+ + Prepared and electronically signed by Latrell Beckford MD 08/27/2020 15:26 [employer] Work Phone: [place], [facility] Incoming Cardiology Results From Kaya/Karma - 08/27/2020 3:26 PM EST [facility] Lower Extremity Venous Duplex Report Heidi Denise DOB: 1960 Study 08/27/2020 Name: Doreen (60yrs) Date: Age: 60 Account: [id number] Gender: F Loc: BP: Ordering Physician: Bertram Mcmillan Senior Manager Quality Assurance: Claritza Rocha RVT Interpreting Physician: Latrell Beckford MD Location: [facility] Indications: R/o dvt , edema, Tx with chemo. Conclusions 1. There is no evidence of acute deep or superficial venous thrombosis noted in the right lower extremity. 2. The left common femoral vein fully compresses and demonstrates normal venous flow. History: Risk factors: Current tobacco use. Hypertension. Diabetes mellitus. Study data: Complete lower extremity venous duplex evaluation. Grayscale 2D imaging, color Doppler imaging, and spectral Doppler analysis. Location: Bedside. Procedure: A vascular evaluation was performed with the patient in the supine position. Images were obtained using a Femasys E9 vascular ultrasound machine. Venous flow and imaging: + +- ------+ + +Location +Overall+Properties + + +- ------+ + +R CFV +Patent +Normal phasicity; spontaneous; + + + +normal augmentation; compressible + + +- ------+ + +R saphenofemoral junction+Patent +Compressible + + +- ------+ + +R profunda femoral +Patent +Spontaneous + + +- ------+ + +R FV - prox. +Patent +Compressible + + +- ------+ + +R FV - mid +Patent +Normal phasicity; spontaneous; + + + +normal augmentation; compressible + + +- ------+ + +R FV - distal +Patent +Compressible + + +- ------+ + +R popliteal +Patent +Normal phasicity; spontaneous; + + + +normal augmentation; compressible + + +- ------+ + +R gastrocnemius +Patent +Compressible + + +- ------+ + +R PTV +Patent +Compressible + + +- ------+ + +R peroneal +Patent +Compressible + + +- ------+ + +R soleal +Patent +Compressible + + +- ------+ + +R GSV +Patent +Compressible + + +- ------+ + +L CFV +Patent +Normal phasicity; spontaneous; + + + +normal augmentation; compressible + + +- ------+ + Prepared and electronically signed by Latrell Beckford MD 08/27/2020 15:26 [facility] Work Phone: VL Venous Duplex US Lower Ex t Righton 08-27-2020 VL Venous Duplex US Lower Ext Right Patient Name: DOREEN DENISE Ultrasound ACCESSION EXAM DATE/TIME PROCEDURE ORDERING PROVIDER [id number] 08/27/2020 14:43 EST VL Venous Duplex US SCOTTY BERTRAM Lower Ext Right CPT code 86164 Reason For Exam (VL Venous Duplex US Lower Ext Right) r/o DVT Report [facility] Lower Extremity Venous Duplex Report Patient KAREN Denise: 1960 Study 08/27/2020 Name: Doreen (60yrs) Date: Age: 60 Account: [id number] Gender: F Loc: BP: Ordering Physician: Bertram Mcmillan Senior Manager Quality Assurance: Claritza Rocha RVT Interpreting Physician: Latrell Beckford MD Location: [facility] Indications: R/o dvt , edema, Tx with chemo. Conclusions 1. There is no evidence of acute deep or superficial venous thrombosis noted in the right lower extremity. 2. The left common femoral vein fully compresses and demonstrates normal venous flow. History: Risk factors: Current tobacco use. Hypertension. Diabetes mellitus. Study data: Complete lower extremity venous duplex evaluation. Grayscale 2D imaging, color Doppler imaging, and spectral Doppler analysis. Location: Bedside. Procedure: A vascular evaluation was performed with the patient in the supine position. Images were obtained using a Femasys E9 vascular ultrasound machine. Ultrasound Report Venous flow and imaging: + +- ------+ + +Location +Overall+Properties + + +- ------+ + +R CFV +Patent +Normal phasicity; spontaneous; + + + +normal augmentation; compressible + + +- ------+ + +R saphenofemoral junction+Patent +Compressible + + +- ------+ + +R profunda femoral +Patent +Spontaneous + + +- ------+ + +R FV - prox. +Patent +Compressible + + +- ------+ + +R FV - mid +Patent +Normal phasicity; spontaneous; + + + +normal augmentation; compressible + + +- ------+ + +R FV - distal +Patent +Compressible + + +- ------+ + +R popliteal +Patent +Normal phasicity; spontaneous; + + + +normal augmentation; compressible + + +- ------+ + +R gastrocnemius +Patent +Compressible + + +- ------+ + +R PTV +Patent +Compressible + + +- ------+ + +R peroneal +Patent +Compressible + + +- ------+ + +R soleal +Patent +Compressible + + +- ------+ + +R GSV +Patent +Compressible + + +- ------+ + +L CFV +Patent +Normal phasicity; spontaneous; + + + +normal augmentation; compressible + + +- ------+ + Prepared and electronically signed by Latrell Beckford MD 08/27/2020 15:26 Final Dictated: 08/27/2020 3:26 pm Dictating Physician: LATRELL BECKFORD Signed Date and Time: 08/27/2020 3:26 pm Signed by: LATRELL BECKFORD Cardiovascular ACCESSION EXAM DATE/TIME PROCEDURE [id number] 08/27/2020 14:43 EST VL Venous Duplex US Lower Ext Right CPT code 99109 Reason For Exam (VL Venous Duplex US Lower Ext Right) r/o DVT Cardiovascular Report [facility] Lower Extremity Venous Duplex Report Patient Howie, : 1960 Study 08/27/2020 Name: Doreen (60yrs) Date: Age: 60 Account: [id number] Gender: F Loc: BP: Ordering Physician: Bertram Mcmillan Senior Manager Quality Assurance: Claritza Rocha RVT Interpreting Physician: Latrell Beckford MD Location: [facility] Indications: R/ (more content not included)... Normal [facility] [facility] POCT Glucoseon 03-09-2021 Glucose [Mass/Vol] 317 mg/dL High 70 - 100 mg/dL [facility] Work Phone: Comment on above: Test performed by gl ucose meter. Results may be 10%-15% lower than serum/plasma values. (CLIA ID [id number]) Interpretation and review of laboratory results Abnormal [facility] Work Phone: Test Performed by [facility], [address] [place] [id number] [facility] Work Phone: Tumor Board Note-Head and Ne ckon 10-27-2018 Tumor Board Note-Head and Neck Note: Tumor Board Note DOREENJOSEPH DENISE was presented at Head and Neck Tumor Board Conference on 27-Oct-[address] Deniz Rodriguez. Impression: Presented with Right neck mass, current smoker, found to have nasopharyngeal mass, biopsy revealing diffuse large B-cell lymphoma, Stage II. Recommendations: Chemotherapy +/- radiation. Disclaimer SCC tumor board recommendations represent the consensus opinion of physicians present at a weekly patient care conference. The treating SCC physician is not always present, and many of the physicians formulating the recommendation have not personally seen or examined the patient under discussion. It is understood that the treating SCC physician considers the expertise of the Tumor Board Recommendation in formulating his/her plan for the patient. However, in many situations, based on individualized patient considerations, a different plan is determined by the treating physician to be the optimal medical management. 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 The patient will be referred to a medical oncologist close to home. Resolution of the hearing difficulty on the right side status post myringotomy. I will see her in 3 months. Provider Impressions Status post biopsy of a nasopharyngeal mass that turned out to be consistent with a lymphoma. The patient will be referred to a medical oncologist close to home. Resolution of the hearing difficulty on the right side status post myringotomy. I will see her in 3 months. Chief Complaint Follow-up status post biopsy of a nasopharyngeal lesion History of Present Illness This lady was seen at the request of a local colleague for the evaluation and management of what looks like a nasopharyngeal cancer. A few months ago the patient noticed the presence of a mass in her right upper neck. This has progressively gotten bigger. She also has lumps on the contralateral side. She had a needle biopsy that showed some necrotic material but was not diagnostic. 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 The patient has issues with hearing on the right side. On October 16, 2018 she was brought to the operating room. She had a myringotomy placed on the right. She also had multiple biopsies of her nasopharynx. He was consistent with a B-cell lymphoma. She is here today to discuss the findings. Her hearing has been restored. Active Problems Lesion of nasopharynx (478.20) (J39.2) Neck mass (784.2) (R22.1) Past Medical History History of chronic obstructive lung disease (V12.69) (Z87.09) History of diabetes mellitus (V12.29) (Z86.39) History of malignant neoplasm (V10.90) (Z85.9) History of No pertinent past surgical history (V49.89) (Z78.9) Family History Family history of malignant neoplasm of brain (V16.8) (Z80.8) Social History Single Allergies No Known Drug Allergies Recorded By: Valery Silva; 10/10/2018 2:46:47 PM Physical Exam Examination of the ear shows of the myringotomy tube in proper position on the right side. Signatures Electronically signed by : Deniz Rodriguez MD; Oct 24 2018 3:43PM EST (Author) Normal [employer] EBV PANELon 10-17-2018 VCA IGM ANTIBODY Negative Normal NEGATIVE [facility] Comment on above: Performed By: #### B MP #### [facility] [address] [place] [address] EBV EA-D IGG ANTIBODY Negative Normal NEGATIVE [facility] Comment on above: Performed By: #### B MP #### [facility] [address] [place] [id number] EBV INTERPRETATION SEE BELOW Normal [facility] Comment on above: Result Comment: . EB V INTERPRETATION CHART . VCA-IGG VCA-IGM NA-IGG EA-IGG . PRIMARY ACUTE +/- +/- - +/- LATE ACUTE + +/- +/- +/- RECOVERING + - - + PREVIOUS INFECTION + - +/- - Performed By: #### B MP #### [facility] [address] [place] [address] EBV NA-1 IGG ANTIBODY Positive Abnormal NEGATIVE [facility] Comment on above: Performed By: #### B MP #### [facility] [address] [place] [address] VCA IGG ANTIBODY Positive Abnormal NEGATIVE [facility] Comment on above: Performed By: #### B MP #### [facility] [address] [place] [id number] EBV PCR,QUANT,PLASMAon 10-17 EBV PCR PLASMA LOG IU/ML Not Calculated Normal [facility] Comment on above: Result Comment: Repo rtable Range: 500-5,000,000 IU/mL. Please note: the testing methodology of the EBV VIRUS DNA QUANTIFICATION has been changed. Laboratory validation shows a good correlation between the results obtained from the new methodology and those obtained from the current testing performed in the reference laboratory. Should there be any issues that need to be clarified, please contact the [facility] at [phone]. Interpretation The EBV VIRUS DNA Quantitative test is a PCR assay targeting the Lmp2A gene using Anal[employer]iCon Discovery ASR reagents. The analytical quantification range of this assay has been determined to be 500 to 5,000,000 IU/ml in plasma or whole blood. The limit of detection for this assay is 388 IU/ml. If the assay DETECTED the presence of the virus but was not able to accurately quantify the number of copies, the test result will be reported as NOT QUANTIFIED. A negative result does not exclude the possibility of EBV virus infection since very low levels of infection or sampling error may cause a false negative result. This assay is intended for use in conjunction with clinical presentation and other laboratory markers of disease progression for the clinical management of EBV infected patients. This test was developed and its performance characteristics determined by the [facility], Department of Pathology, [facility], [place], [place]. It has not been cleared or approved by the US Food and Drug Administration. The FDA has determined that such clearance is not necessary. It should not be regarded as investigational or for research use. Performed By: #### B MP #### [facility] [address] [place], [place] EBV PCR,PLASMA Not Detected Normal [facility] Comment on above: Result Comment: To c onvert IU/mL to copies/mL multiply result by 0.49. REF VALUE NOT DETECTED Performed By: #### B MP #### [facility] [address] [place], [place] GLUCOSE-POCTon 10-16-2018 Glucose mass conc 77 mg/dL Normal 74 - 99 [facility]-Otol kody gology-[facility] Work Phone: Comment on above: Performed By: #### G EMMA #### [facility] [address] [place] [address] Glucose mass conc 173 mg/dL High 74 - 99 [facility]-Otol kody gology-[facility] Work Phone: Comment on above: Performed By: #### G EMMA #### [facility] [address] [place] [address] History and Physical - Surgi jessica Update < 30 dayson 10-16-2018 History and Physical - Surgical Update < 30 days History & Physical Reviewed: I have reviewed the History and Physical dated: 12-Oct-2018 History and Physical reviewed and relevant findings noted. Patient examined to review pertinent physical findings.: No significant changes Home Medications Reviewed: no changes noted Allergies Reviewed: no changes noted This patient has been seen and discussed with the attending physician responsible for performing the procedure: yes Signatures/Attestation/Certi fication: Attending AttestationI saw and evaluated the patient. I personally obtained the bailon and critical portions of the history and physical exam or was physically present for bailon and critical portions performed by the resident/fellow. I reviewed the resident/fellows documentation and discussed the patient with the resident/fellow. I agree with the resident/fellows medical decision making as documented in the residents note. I personally evaluated the patient (as noted in the above attestation) on 16-Oct-2018 Attending Provider Inpatient Certification StatementN/A - observation patient/other outpatient visits Electronic Signatures: Deniz Rodriguez) (Signed 16-Oct-2018 15:57) Authored: Signatures/Attestation/Certi fication Co-Signer: History & Physical Reviewed, Signatures/Attestation/Certi fication Blas Saldaña (Resident)) (Signed 16-Oct-2018 14:12) Authored: History & Physical Reviewed, Signatures/Attestation/Certi fication Last Updated: 16-Oct-2018 15:57 by Deniz Rodriguez) [facility] Imm/Pathon 10-16-2018 EBV early IgM IA Qn (S) Negative NEGATIVE [facility]-Otolaryn gology-[facility] Work Phone: OPERATIVE REPORTon 9 [place] [address] Patient Name: DOREEN DENISE : 1960 Date of Service: 10/16/2018 Patient Location: [place] [address] Patient Type: O Surgeon: Deniz Rodriguez MD Report Type: Operative Reports PREOPERATIVE DIAGNOSIS: 1. Nasopharyngeal cancer. 2. Neck metastasis. 3. Serous otitis. POSTOPERATIVE DIAGNOSIS: 1. Nasopharyngeal cancer. 2. Neck metastasis. 3. Serous otitis. OPERATION/PROCEDURE: 1. Nasal endoscopy and biopsy (multiple). 2. Direct laryngoscopy. 3. Flexible bronchoscopy. 4. Flexible esophagoscopy. 5. Right myringotomy and tube. 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 She is here today to undergo biopsy of the primary site as well as a panendoscopy and insertion of a myringotomy tube. She understands the procedure and possible complication and wishes to proceed. PROCEDURE NOTE: Under general endotracheal anesthesia, the patient was properly positioned. The Dedo laryngoscope was introduced. Careful examination of the oral cavity, oropharynx, hypopharynx, and larynx was negative. The laryngoscope was then suspended over the larynx. The bronchoscope was inserted through the laryngoscope into the tracheobronchial tree. All the different bronchial segments were visualized and they were felt to be within normal limits. She did have some thick mucus. The bronchoscope was pulled. The laryngoscope was resuspended over the esophageal introitus. The gastroscope was introduced all the way down into the stomach. The entire length of the esophagus was visualized on the way out and found to be negative. The patient was draped and some Jeremy-Synephrine was placed on pledget into the nasal passages. After a moment of wait, the rigid nasal endoscope was utilized and passed on the left side and was impossible to pass because of a large spur. On the right side, we accessed the nasopharynx where there was an exophytic mass that basically involved the entire nasopharynx. Biopsies were obtained and sent for frozen section. It was consistent with malignancy. It was recommended that further biopsies be done in order to perform further staining and this was also performed. The ear was then examined. The wax was removed. The microscope was brought into the operative field and through the nasal speculum, and then, using the microscope, a myringotomy was performed, and a Ceferino bobbin myringotomy tube was placed without any difficulty. Drops were applied. The procedure was terminated. The patient was sent back to Recovery in fair condition. Deniz Rodriguez MD EST TT: 10/17/2018 09:11 AM EST DICTATION NUMBER: [id number] SPHEROBED JOB NUMBER: [id number] CC: Electronically Signed by Dr. Deniz Rodriugez 10/18/2018 04:55:41 PM Normal [facility] Otheron 10-16-2018 EBV capsid IgG IA Qn (S) Positive Abnormal NEGATIVE [facility] Work Phone: EBV capsid IgM IA Qn (S) Negative NEGATIVE [facility] Work Phone: EBV nuclear IgG IA Qn (S) Positive Abnormal NEGATIVE [facility] Work Phone: Not Detected [facility] Work Phone: Comment on above: To convert IU/mL to copies/mL multiply result by 0.49. REF VALUENOT DETECTED SEE BELOW [facility]aryn [facility] Work Phone: Comment on above: . EBV INTERPRETATION CHART. VCA-IGG VCA-IGM NA-IGG EA-IGG. PRIMARY ACUTE +/- +/- - +/-LATE ACUTE + +/- +/- +/-RECOVERING + - - +PREVIOUS INFECTION + - +/- - Not Calculated [facility]-Otolary n gology-[facility] Work Phone: Comment on above: Reportable Range: 50 0-5,000,000 IU/mL. Please note: the testing methodology of the EBV VIRUS DNA QUANTIFICATION has been changed. Laboratory validation shows a good correlation between the results obtained from the new methodology and those obtained from the current testing performed in the reference laboratory. Should there be any issues that need to be clarified, please contact the [facility] Diagnostic Laboratory at [phone]. InterpretationThe EBV VIRUS DNA Quantitative test is aPCR assay targeting the Lmp2A gene using AnalytiCon Discovery ASR reagents. The analytical quantification range of this assay has been determined to be 500 to 5,000,000 IU/ml in plasma or whole blood. The limitof detection for this assay is 388 IU/ml. If the assay DETECTED the presence of the virus but was notable to accurately quantify the number of copies, thetest result will be reported as NOT QUANTIFIED. A negative result does not exclude the possibility of EBV virus infection since very low levels of infection or sampling error may cause a false negative result. This assay is intended for use in conjunction withclinical presentation and other laboratory markers ofdisease progression for the clinical management of EBV infected patients. This test was developed and itsperformance characteristics determined by the [facility], Department of Pathology,[place], [place]. It has not been cleared or approved by the US Food and DrugAdministration. The FDA has determined that such clearance is not necessary. It should not be regarded asinvestigational or for research use. Name DOREEN DENISE cession #: [id number] Pathologist: CONNOR MARTIN JR, MD, PhD.Date of Procedure: 10/16/2018Date Received: 10/16/2018Date Reported 10/20/2018Submitting Physician: DENIZ RODRIGUEZ MDLocation: [facility] Other External # FINAL DIAGNOSISA\T\B: RIGHT NASAL PHARYNGEAL MASS, BIOPSIES: -- DIFFUSE LARGE B CELL LYMPHOMA, WHO CLASSIFICATION PENDING GENETIC STUDIES,SEE NOTE.NOTE: The lymphoma is a C-MYC/BCL2 double-expressor. Genetic studies to excludea double/triple hit lymphoma are pending. The lymphoma is CD30+ in a majorityof cells. SUBTYPE BY TABITHA CRITERIA: GERMINAL CENTER TYPEGENETIC STUDIES: FISH for C-MYC, BCL2, and BCL6 gene rearrangements are pendingat the time of this report. MORPHOLOGY: The specimen is composed of multiple fragments of nasopharyngealtissue with diffuse infiltration large lymphoid cells with irregular nuclearcontour, clumped chromatin and prominent nucleoli. There is prominent crushartifact. Background small reactive lymphocytes are present. Regions ofnecrosis or ulceration are also noted. IMMUNOHISTOCHEMISTRY \T\ IN SITU HYBRIDIZATION:Stains performed on part B (unless otherwise specified) demonstrate thefollowing results in the lymphoma cells: CD20 (performed on part A and B):Positive Pax5: Similar to CD20 CD79a: Weakly positive in lymphoma cells. Some cells appear negative. CD3 (performed on part A and B): Negative. Stains background T-cells CD5: Similar to CD3 CD10: Appears positive although difficult to interpret due to backgroundstromal staining BCL6: Strongly positive in over 80% of tumor cells in preserved areas BCL2: Diffusely but weakly positive. Stronger staining in background Tcells. MUM1: Predominantly negative. Possible weak staining in less than 20% oftumor cells. Also stains background plasma cells more prominent in asubepithelial location. MYC: 70-80% positive cells Cyclin D1: Negative in lymphoid cells Ki-67: Proliferative index of about 80% CD30: Positive in over 50% of the lymphoma cells. EBV (ASHLEY in situ hybridization): Negative The following stains were performed on part A (by head and neck pathology) toevaluate for carcinoma: Keratin AE1/AE3, Keratin Cam5.2, P40, Synaptophysin.All these stains were negative for carcinoma. FLOW CYTOMETRY: No specimen received for flow cytometry.The gross and/or microscopic findings were reviewed in conjunction withpathology resident, PAUL Kovacs.Collaborating Supervising Physician: Dr. Crista Prince (head and neck pathology) Electronically Signed Out By CONNOR MARTIN JR, MD, PhD./Windy the signature on this report, the individual or group listed as making theFinal Interpretation/Diagnosis certifies that they have reviewed this case. Intraoperative Consultation:A: right nasal pharynxFrozen Section 1:Date Ordered: 10/16/2018 17:00 Date Received: 10/16/2018 17:00 DateCalled: 10/16/2018 17:10Intraoperative Diagnosis:FSA: Positive for malignancy, favor carcinoma. Lymphoma cannot be excluded;additional tissue for lymphoma protocol requested.Intraoperative Consult Pathologist(s):DIANNE ALEXANDER MD (P) Clinical History:nasal pharyngeal massSpecimens Submitted As:A: right nasal pharynx B: RIGHT NASAL PHARYNGEAL MASS Gross Description:Received fresh for intraoperative analysis labeled with the patient name andspital number are multiple fragments of webb-white soft tissue aggregating 0.9x 0.8 x 0.3 cm. The specimen is submitted in toto for intraoperative analysisin one cassette.BXM/BMMB: Received in formalin, labeled with the patient's name and hospital number,are multiple segments of light webb to red-brown soft tissue aggregating to 1.5x 1.0 x 0.5 cm. The specimen is submitted in toto in one cassette.LMPbkm/10/16/2018 The assays/tests were performed with appropriate positive and negative controlswhich stained appropriately.One or more of the reagents used to perform assayson this specimen MAY have contained components considered to be LaboratoryDeveloped Tests (LDT). LDT's have not been cleared or approved by the U.S.Food and Drug Administration. These assays/tests were developed and theirperformance characteristics determined by the Department of PathologyImmunohistochemistr y Labs at [facility]. The FDA doesnot require this test to go through premarket FDA review. This test is used forclinical purposes. It should not be regarded as investigational or forresearch. This laboratory is certified under the Clinical LaboratoryImprovement Amendments (CLIA) as qualified to perform high complexity clinicallaboratory testing. The assays/tests were performed with appropriate positiveand negative controls which stained appropriately. -Otolaryn gology-[facility] Work Phone: Patient Profile - Preop v2on 10-16-2018 Protein mass conc Profile: Initial Info: How to be AddressedBrenda Spoken Language PreferredEnglish Are you currently using the Personal Electronic Health Record or FormarumRoadnetno Are you interested in learning more about [facility] for the management of your healthnot at this time Stated Reason for AdmissionBiopsies and scope Primary Contact Name and NumberMonalisa (daughter) Patient Belongingsnone Medications Brought to Hospitalno General Health: Weight in kg82.2 kilogram(s) Weight in enp871.2 pound(s) Weight Methodactual (measured) Scale Typestanding Height in cm170 centimeter(s) Height Methodheight measured BMI (kg/m2)28.442 square meter Patient or Family Member Reaction to Anesthesiano previous reaction; no previous family member reaction Blood Avoidance/Restrictionsnone Previous Transfusion Reactionno Health Mgmt: Symptoms/Conditions Managed at Homecancer; endocrine; respiratory Cancer Symptoms/Conditions CommentHead/Neck Respiratory Symptoms/ConditionsCOPD Barriers to Managing Healthnone Endocrine Symptoms/Conditionsdiabetes Relationship/Environ: Resource/Environmental Concernsnone Substance: Current or Former Substance Use never: e-Cigarette/Vaping, Alcohol, Street Drugs YES: Cigarette/Tobacco Tobacco Cessation Education (provide if tobacco use within the last 12 mos)not applicable Risk Screens: Advance Directive Medicalno Advance Directive Information Givenpatient/family declined Advance Directive Mental Healthnot applicable During the past month, have you often been bothered by feeling down, depressed or hopelessno During the past month, have you often had little interest or pleasure in doing thingsno Have you had any thoughts of harming yourselfno Have you had any thoughts of harming anyone elseno Are you or have you been threatened or abused physically,emotionally or sexually abused by anyoneno Do you feel UNSAFE going back to the place you are livingno Patient is Able to be Assessed for Learningyes Factors Influencing Readiness to Learnanxiety Factors that Impact Ability to Learnnone Devices/Methods Used to Communicatenone Learning Preferencesindividual instruction; verbal instruction Cultural Considerationsnone Developmental Considerationsnone Uatsdin Considerationsnone Other learner availableno Falls RiskPatient location auto qualifies him/her for HIGH RISK. Are there any cultural, spiritual, evangelical practices/values/needs that are important for us to knowno Pain Scalenumerical 0-10 Pain Scale Educationteaching provided Current Pain Level0 = None Acceptable Pain Level5 = Moderate Chronic Painno Information Review: Allergies, Home Meds and Significant Events have been Reviewed and Verified with Patient/Familyyes Allergy, Intolerance, Adverse Event: Allergies: No Known Allergies: Active Electronic Signatures: Evie Lynn) (Signed 16-Oct-2018 14:26) Authored: Profile, Additional Information Last Updated: 16-Oct-2018 14:26 by Evie Lynn) [facility] Preop Checkliston 10-16-2018 Preop Checklist Preop Checklist: Preop Checklist: Arrival [id number] Arrival Time13:55 Procedure TypeNasal Endoscopy with Biopsy/Triple Endoscopy/ Right Myringotomy with Tube Placement NPO [id number] 13:55 ID Band Onyes Allergy Bandyes Consent Signedyes H&P Completeyes Anesthesia Assessment Completedyes EKG Performednot ordered Chest X-Ray Performednot ordered HCG Urine TestComplete Chlorhexadine Bath Givennot applicable Hair Washedyes Soap and water bath with hair shampoo the night before surgeryyes SCD's Appliedsent to OR DALE Hose Appliedno Denturesnot applicable Prostheticsnot applicable Hearing Aidsnot applicable Valuables Securednot applicable Glasses / Contactsnot applicable Bowel Prepno Cardiovascular Assessment: Apicalregular Radial Pulsespalpable Pedal Pulsespalpable Extremitieswarm Respiratory Assessment: Respirationsunlabored regular Air Exchangeequal, good Breath Soundsclear Neurological Assessment: Level of Consciousnessalert, oriented Mobilitymoves all extremities Able to Express Selfyes Age Appropriateyes Emotional Statuscalm Preop Education: Surgical Site Infection Preventionyes Pain Scales and Managementyes Language / Communication: Language / CommunicationEnglish Electronic Signatures: Evie Lynn) (Signed 16-Oct-2018 14:28) Authored: Preop Checklist Last Updated: 16-Oct-2018 14:28 by Evie Lynn) Normal [facility] Surgical Pathology Depar sorin 10-16-2018 [facility] Surgical Pathology Department Name DOREEN DENISE Pathologist: CONNOR MARTIN JR, MD, PhD. Date of Procedure: 10/16/2018 Date Received: 10/16/2018 Date Reported 10/20/2018 Submitting Physician: DENIZ RODRIGUEZ MD Location: [facility] Other External # FINAL DIAGNOSIS A AND B: RIGHT NASAL PHARYNGEAL MASS, BIOPSIES: -- DIFFUSE LARGE B CELL LYMPHOMA, WHO CLASSIFICATION PENDING GENETIC STUDIES, SEE NOTE. NOTE: The lymphoma is a C-MYC/BCL2 double-expressor. Genetic studies to exclude a double/triple hit lymphoma are pending. The lymphoma is CD30+ in a majority of cells. SUBTYPE BY TABITHA CRITERIA: [facility] TYPE GENETIC STUDIES: FISH for C-MYC, BCL2, and BCL6 gene rearrangements are pending at the time of this report. MORPHOLOGY: The specimen is composed of multiple fragments of nasopharyngeal tissue with diffuse infiltration large lymphoid cells with irregular nuclear contour, clumped chromatin and prominent nucleoli. There is prominent crush artifact. Background small reactive lymphocytes are present. Regions of necrosis or ulceration are also noted. IMMUNOHISTOCHEMISTRY AND IN SITU HYBRIDIZATION: Stains performed on part B (unless otherwise specified) demonstrate the following results in the lymphoma cells: CD20 (performed on part A and B):Positive Pax5: Similar to CD20 CD79a: Weakly positive in lymphoma cells. Some cells appear negative. CD3 (performed on part A and B): Negative. Stains background T-cells CD5: Similar to CD3 CD10: Appears positive although difficult to interpret due to background stromal staining BCL6: Strongly positive in over 80% of tumor cells in preserved areas BCL2: Diffusely but weakly positive. Stronger staining in background T cells. MUM1: Predominantly negative. Possible weak staining in less than 20% of tumor cells. Also stains background plasma cells more prominent in a subepithelial location. MYC: 70-80% positive cells Cyclin D1: Negative in lymphoid cells Ki-67: Proliferative index of about 80% CD30: Positive in over 50% of the lymphoma cells. EBV (ASHLEY in situ hybridization): Negative The following stains were performed on part A (by head and neck pathology) to evaluate for carcinoma: Keratin AE1/AE3, Keratin Cam5.2, P40, Synaptophysin. All these stains were negative for carcinoma. FLOW CYTOMETRY: No specimen received for flow cytometry. The gross and/or microscopic findings were reviewed in conjunction with pathology resident, PAUL Kovacs. Collaborating Supervising Physician: Dr. Crista Prince (head and neck pathology) Electronically Signed Out By CONNOR MARTIN JR, MD, PhD./DEVI By the signature on this report, the individual or group listed as making the Final Interpretation/Diagnosis certifies that they have reviewed this case. Intraoperative Consultation: A: right nasal pharynx Frozen Section 1: Date Ordered: 10/16/2018 17:00 Date Received: 10/16/2018 17:00 Date Called: 10/16/2018 17:10 Intraoperative Diagnosis: FSA: Positive for malignancy, favor carcinoma. Lymphoma cannot be excluded; additional tissue for lymphoma protocol requested. Intraoperative Consult Pathologist(s): DIANNE ALEXANDER MD (P) Addendum/Procedures: Special Oncology Report Date Ordered: 11/02/2018 Status: Signed Out Date Complete: 11/02/2018 Date Reported: 11/06/2018 Addendum Diagnosis FINAL WHO CLASSIFICATION: DIFFUSE LARGE B CELL LYMPHOMA, NOT OTHERWISE SPECIFIED FISH Interpretation: MYC, IGH/MYC, BCL2, BCL6 Rearrangement NOT DETECTED NORMAL signal pattern consistent with the absence of MYC, IGH/MYC, BCL2, or BCL6 rearrangement. This result should be interpreted within the context of other available clinical and pathological data. Specimen type/Block no.: Nasal Pharyngeal Mass/B1 Number of cells counted: 200 for each probe set Number of observers: 2 ISCN: nuc rashmi(BCL6x2)[200],(MYCx2)[200 ],(MYC,IGH)x2[200],(BCL2x2)[ 200] Probes Used: MYC, BCL2, BCL6 break-apart ([employer], [employer], [place], [place]) Reference range for MYC, BCL2, BCL6: < 20% NORMAL > 20% ABNORMAL Probe Used: IGH/MYC Dual Fusion ([employer], [employer], [place], [place]) Reference range for IGH/MYC: 1O1G2F - > 20% ABNORMAL 1O1G1F - > 30% ABNORMAL Justin Nielsen, Ph.D. FAC, [facility] [employer] Making Machine Operator Reviewer This FISH test was developed and its performance characteristics determined by the [facility]. It has not been cleared or approved by the U.S. Food and Drug Administration. The FDA has determined that such clearance or approval is not necessary. This test is used for clinical purposes. It should not be regarded as investigational or for research. This laboratory is certified under the Clinical Laboratory Improvement Amendments (CLIA) as qualified to perform high complexity laboratory testing. Electronically Signed Out By CONNOR MARTIN JR, MD, PhD./DEVI By the signature on this report, the individual or group listed as making the Final Interpretation/Diagnosis certifies that they have reviewed this case. Clinical History: nasal pharyngeal mass Specimens Submitted As: A: right nasal pharynx B: RIGHT NASAL PHARYNGEAL MASS Gross Description: Received fresh for intraoperative analysis labeled with the patient name and hospital number are multiple fragments of webb-white soft tissue aggregating 0.9 x 0.8 x 0.3 cm. The specimen is submitted in toto for intraoperative analysis in one cassette. BXM/BMM B: Received in formalin, labeled with the patient's name and hospital number, are multiple segments of light webb to red-brown soft tissue aggregating to 1.5 x 1.0 x 0.5 cm. The specimen is submitted in toto in one cassette. [facility] bkm/10/16/2018 The assays/tests were performed with appropriate positive and negative controls which stained appropriately.One or more of the reagents used to perform assays on this specimen MAY have contained components considered to be Laboratory Developed Tests (LDT). LDT's have not been cleared or approved by the U.S. Food and Drug Administration. These assays/tests were developed and their performance characteristics determined by the Department of Pathology Immunohistochemistry Labs at [facility]. The FDA does not require this test to go through premarket FDA review. This test is used for clinical purposes. It should not be regarded as investigational or for research. This laboratory is certified under the Clinical Laboratory Improvement Amendments (CLIA) as qualified to perform high complexity clinical laboratory testing. The assays/tests were performed with appropriate positive and negative controls which stained appropriately. Normal [facility] Comment on above: Performed By: #### B MP #### [facility] [address] [place] [address] HEMOGLOBIN A1Con 10-13-2018 Hemoglobin A1c/Hemoglobin.total mass fraction (Bld) 10.9 % Normal [facility] Comment on above: Result Comment: Diag nosis of Diabetes-Adults Non-Diabetic: < or = 5.6% Increased risk for developing diabetes: 5.7-6.4% Diagnostic of diabetes: > or = 6.5% . Monitoring of Diabetes Age (y) Therapeutic Goal (%) Adults: >18 <7.0 Pediatrics: 13-18 <7.5 7-12 <8.0 0- 6 7.5-8.5 [place] [employer]. Diabetes Care 33(S1), Jun 2009. Performed By: #### H BA1E #### [facility] [address] [place] [address] Hemoglobin A1c/Hemoglobin.total mass fraction (Bld) 266 MG/DL Normal [facility] Comment on above: Performed By: #### H BA1E #### [facility] [address] [place] [address] BASIC METABOLIC PANELon 04-2 Anion gap molar conc 14 mmol/L Normal 10 - 20 [facility] Comment on above: Performed By: #### B MP #### [facility] [address] [place] [address] Calcium mass conc 9.2 mg/dL Normal 8.6 - 10.6 [facility] Comment on above: Performed By: #### B MP #### [facility] [address] [place] [address] Chloride molar conc 96 mmol/L Low 98 - 107 [facility] Comment on above: Performed By: #### B MP #### [facility] [address] [place] [address] Creatinine mass conc 0.48 mg/dL Low 0.50 - 1.05 [facility] Comment on above: Performed By: #### B MP #### [facility] [address] [place] [address] GFR- AM. >60 Normal >60 [facility] Comment on above: Result Comment: CALC ULATIONS OF ESTIMATED GFR ARE PERFORMED USING THE MDRD STUDY EQUATION FOR THE IDMS-TRACEABLE CREATININE METHODS. CLIN CHEM 2007;53:766-72 Performed By: #### B MP #### [facility] [address] [place] [address] GFR-NON AM. >60 Normal >60 [facility] Comment on above: Performed By: #### B MP #### [facility] [address] [place] [address] Glucose mass conc 407 mg/dL High 74 - 99 [facility] Comment on above: Performed By: #### B MP #### [facility] [address] [place] [address] HCO3 molar conc (Bld) 26 mmol/L Normal 21 - 32 [facility] Comment on above: Performed By: #### B MP #### [facility] [address] [place] [address] Potassium molar conc 4.3 mmol/L Normal 3.5 - 5.3 [facility] Comment on above: Performed By: #### B MP #### [facility] [address] [place] [address] Sodium molar conc 132 mmol/L Low 136 - 145 [facility] Comment on above: Performed By: #### B MP #### [facility] [address] [place] [address] Urea nitrogen mass conc 10 mg/dL Normal 6 - 23 [facility] Comment on above: Performed By: #### B MP #### [facility] [address] [place] [address] CBCon 10-12-2018 Erythrocyte distribution width Ratio (RBC) 13.0 % Normal 11.5 - 14.5 [facility] Comment on above: Performed By: #### C BC #### [facility] [address] [place] [address] Hematocrit Volume Fraction (Bld) 42.9 % Normal 36.0 - 46.0 [facility] Comment on above: Performed By: #### C BC #### [facility] [address] [place] [address] Hemoglobin mass conc (Bld) 15.3 g/dL Normal 12.0 - 16.0 [facility] Comment on above: Performed By: #### C BC #### [facility] [address] [place] [address] MCHC mass conc (RBC) 35.7 g/dL Normal 32.0 - 36.0 [facility] Comment on above: Performed By: #### C BC #### [facility] [address] [place] [address] MCV Entitic volume (RBC) 85 fL Normal 80 - 100 [facility] Comment on above: Performed By: #### C BC #### [facility] [address] [place] [address] Nucleated RBC/100 WBC Ratio (Bld) 0.0 /100 WBC Normal 0.0-0.0 [facility] Comment on above: Performed By: #### C BC #### [facility] [address] [place] [address] Platelets #/vol (Bld) 206 10*3/uL Normal 150 - 450 [facility] Comment on above: Performed By: #### C BC #### [facility] [address] [place] [address] RBC #/vol (Bld) 5.02 x10E12/L Normal 4.00 - 5.20 [facility] Comment on above: Performed By: #### C BC #### [facility] [address] [place] [address] WBC #/vol (Bld) 6.3 10*3/uL Normal 4.4 - 11.3 [facility] Comment on above: Performed By: #### C BC #### [facility] [address] [place] [address] Hematologyon 10-12-2018 Hematocrit Volume Fraction (Bld) 42.9 % See Below [facility] Work Phone: Comment on above: Reference Range: 36. 0 - 46.0 Hemoglobin mass conc (Bld) 15.3 g/dL See Below [facility] Work Phone: Comment on above: Reference Range: 12. 0 - 16.0 MCV Entitic volume (RBC) 85 fL 80 - 100 -[facility] Work Phone: [phone] Platelets #/vol (Bld) 206 {x10E9/L} 150 - 450 [facility] Work Phone: [phone] RBC #/vol (Bld) 5.02 {x10E12/L} See Below [facility] Work Phone: [phone] Comment on above: Reference Range: 4.0 0 - 5.20 WBC #/vol (Bld) 6.3 {x10E9/L} 4.4 - 11.3 [facility] Work Phone: [phone] WBC #/vol (Bld) 0.0 {/100_WBC} 0.0-0.0 [facility] Work Phone: [phone] Hemoglobin A1Con 10-12-2018 Hemoglobin A1c/Hemoglobin.total mass fraction (Bld) 266 {MG/DL} [facility] Work Phone: [phone] Hemoglobin A1c/Hemoglobin.total mass fraction (Bld) 10.9 % [facility] Work Phone: [phone] Comment on above: Diagnosis of Diabete s-Adults Non-Diabetic: < or = 5.6% Increased risk for developing diabetes: 5.7-6.4% Diagnostic of diabetes: > or = 6.5%. Monitoring of Diabetes Age (y) Therapeutic Goal (%) Adults: >18 <7.0 Pediatrics: 13-18 <7.5 7-12 <8.0 0- 6 7.5-8.5 [place] [employer]. Diabetes Care 33(S1), Jun 2009. Metabolic Panelon 10-12-2018 Anion gap molar conc 14 mmol/L 10 - 20 [facility] Work Phone: [phone] Calcium mass conc 9.2 mg/dL 8.6 - 10.6 [facility] Work Phone: [phone] Chloride molar conc 96 mmol/L below low threshold 98 - 107 [facility] Work Phone: [phone] CO2 molar conc 26 mmol/L 21 - 32 [facility] Work Phone: [phone] Creatinine mass conc 0.48 mg/dL below low threshold See Below [facility] Work Phone: Comment on above: Reference Range: 0.5 0 - 1.05 Glucose mass conc 407 mg/dL above high threshold 74 - 99 [facility] Work Phone: [phone] Potassium molar conc 4.3 mmol/L 3.5 - 5.3 [facility] Work Phone: [phone] Sodium molar conc 132 mmol/L below low threshold 136 - 145 [facility] Work Phone: [phone] Urea nitrogen mass conc 10 mg/dL 6 - 23 [facility] Work Phone: [phone] Otheron 10-12-2018 Erythrocyte distribution width Ratio (RBC) 13.0 % See Below [facility] Work Phone: [phone] Comment on above: Reference Range: 11. 5 - 14.5 MCHC mass conc (RBC) 35.7 g/dL See Below [facility] Work Phone: Comment on above: Reference Range: 32. 0 - 36.0 >60 >60 [facility] Work Phone: [phone] Comment on above: CALCULATIONS OF CORNELL MATED GFR ARE PERFORMED USING THE MDRD STUDY EQUATION FOR THE IDMS-TRACEABLE CREATININE METHODS. CLIN CHEM 2007;53:766-72 XR Chest 2 views Interpreted by: Brad BRYAN10/12/18 18:16MRN: [id number] Name: DOREEN DENISE STUDY: CHEST 2 VIEW PA AND LAT; 10/12/2018 3:09 pm INDICATION:SMOKER. COMPARISON:None. ORDERING CLINICIAN:DENIZ RODRIGUEZ FINDINGS: CARDIOMEDIASTINAL SILHOUETTE:Cardiomediastinal silhouette is normal in size and configuration. LUNGS:Lungs are clear of focal airspace disease or edema. Question minimalperibronchial thickening but no focal airspace disease. ABDOMEN:No remarkable upper abdominal findings. BONES:No acute osseous changes. IMPRESSION:1. No active disease. Electronically signed by: Brad BRYAN 10/12/18 18:16 Normal [facility] Work Phone: [phone] [facility] Work Phone: [phone] [email or web address] [id number] [facility] Work Phone: [phone] Normal sinus rhythm [facility] Work Phone: [phone] [facility] Work Phone: [phone] [facility] Work Phone: [phone] [facility] Work Phone: [phone] [facility] Work Phone: [phone] [facility] Work Phone: [phone] [facility] Work Phone: [phone] [facility] Work Phone: [phone] [facility] Work Phone: [phone] [facility] Work Phone: [phone] [facility] Work Phone: [phone] [facility] Work Phone: [phone] [facility] Work Phone: [phone] [facility] Work Phone: [phone] TH CHEST 2 VIEW PA AND LATon 10-12-2018 TH CHEST 2 VIEW PA AND LAT Patient Name: DOREEN DENISE STUDY: TH CHEST 2 VIEW PA AND LAT; 10/12/2018 3:09 pm INDICATION: SMOKER. COMPARISON: None. ACCESSION NUMBER(S): [id number] ORDERING CLINICIAN: DENIZ RODRIGUEZ FINDINGS: CARDIOMEDIASTINAL SILHOUETTE: Cardiomediastinal silhouette is normal in size and configuration. LUNGS: Lungs are clear of focal airspace disease or edema. Question minimal peribronchial thickening but no focal airspace disease. ABDOMEN: No remarkable upper abdominal findings. BONES: No acute osseous changes. IMPRESSION: 1. No active disease. 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 The patient will be brought to the operating room for panendoscopy and biopsy. We will also place a myringotomy tube on the right side. I've already discussed with the patient the treatment which will consist of a combination of chemotherapy and radiation. The patient wishes to proceed. 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 The patient will be brought to the operating room for panendoscopy and biopsy. We will also place a myringotomy tube on the right side. I've already discussed with the patient the treatment which will consist of a combination of chemotherapy and radiation. The patient wishes to proceed. Chief Complaint Consultation for the management of a nasopharyngeal cancer History of Present Illness This 58-year-old lady is seen at the request of a local colleague for the evaluation and management of what looks like a nasopharyngeal cancer. A few months ago the patient noticed the presence of a mass in her right upper neck. This has progressively gotten bigger. She also has lumps on the contralateral side. She had a needle biopsy that showed some necrotic material but was not diagnostic. 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 The patient has issues with hearing on the right side. Review of Systems The past medical history and review of system is negative except for diabetes, COPD, and the present problem. Her prior surgeries in present medications are documented in the chart. She does not have any known allergies to medications. The family history shows a father that at age 72 of throat cancer. Her mother also at the same age of brain cancer. This patient smoked between a pack and a pack and half cigarettes a day for the past 42 years. She does not drink significantly. She is single. 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 She lives with her family. She is here today with her daughter. Physical Exam The patient is alert and oriented. Examination of the external ears, ear canals, and eardrums, is within normal limits. She does have a serous otitis on the right side. Examination of the anterior and external nose is negative. Examination of the oral cavity and oropharynx is normal. There is no evidence of any mucosal lesions. There is good mobility of the tongue and palate. There is good mandibular excursion. Palpation of the parotid, neck, and thyroid field shows significant adenopathies with the largest being in the right upper neck measuring approximately 6-7 cm. She has a smaller one on the ipsilateral side. She also has 2 palpable masses in the upper left neck. A flexible laryngoscopy was carried out. Under topical Xylocaine and Jeremy-Synephrine the scope was introduced through the nostril. The nasopharynx, base of tongue, hypopharynx, and larynx are visualized. The vocal cords are normally mobile. There is no pooling of secretions in the piriform sinuses. In the nasopharynx and there is a lesion at that seems to involve the entire nasopharynx. Signatures Electronically signed by : Deniz Rodriguez MD; Oct 10 2018 2:14PM EST (Author) Normal [facility] C-Peptideon 12-31-2016 C-Peptide 3.5 ng/mL Normal 1.0-7.6 [facility] Comment on above: Performed By: #### C PEP ####[place] [address] CBCon 12-30-2016 Basophils/100 WBC Auto (Bld) 0.4 % Normal 0.0-2.5 [facility] Comment on above: Performed By: #### C BC ####[facility], [address] [place], [place] [id number] Eosinophils/100 leukocytes 3.7 % Normal 0.0-6.0 [facility] Comment on above: Performed By: #### C BC ####[place] [address] Erythrocyte distribution width Auto Ratio (RBC) 15.4 % Normal 11.5-15.5 [facility] Comment on above: Performed By: #### C BC ####[place] [address] Erythrocytes (RBC) 4.51 10 6/mcL Normal 4.10-5.30 [facility] Comment on above: Performed By: #### C BC ####[place] [address] Hematocrit (HCT) 39.2 % Normal 34.0-46.0 [facility] Comment on above: Performed By: #### C BC ####[place] [address] Hemoglobin mass conc (Bld) 13.8 G/dL Normal 12.0-16.0 [facility] Comment on above: Performed By: #### C BC ####[place] [id number] Lymphocytes/100 leukocytes 19.5 % Low 20.0-40.0 [facility] Comment on above: Performed By: #### C BC ####[place] [id number] MCH 30.5 pg Normal 27.0-33.0 [facility] Comment on above: Performed By: #### C BC ####[facility], [address] [place] [address] MCHC mass conc (RBC) 35.1 G/dL Normal 32.0-36.0 [facility] Comment on above: Performed By: #### C BC ####[facility], [address] [place] [address] MCV 86.9 fL Normal 80.0-99.0 [facility] Comment on above: Performed By: #### C BC ####[facility], [address] [place] [address] Monocytes/100 leukocytes 6.5 % Normal 2.0-13.0 [facility] Comment on above: Performed By: #### C BC ####[facility], [address] [place] [address] Neutrophils 4.90 10 3/mcL Normal 1.90-7.90 [facility] Comment on above: Performed By: #### C BC ####[facility], [address] [place] [address] Neutrophils/100 WBC Auto (Bld) 69.9 % Normal 50.0-75.0 [facility] Comment on above: Performed By: #### C BC ####[address] [address] Platelet mean volume (PMV) 9.2 fL Normal 6.6-10.5 [facility] Comment on above: Performed By: #### C BC ####[address] [address] Platelets 215 10 3/mcL Normal 150-450 [facility] Comment on above: Performed By: #### C BC ####[address] [address] WBC (Leukocytes) 7.00 10 3/mcL Normal 4.50-10.80 [facility] Comment on above: Performed By: #### C BC ####[address] [address] Comp. Metabolic Panelon 07- Alk. Phosphatase 122 U/L Normal 38-126 [facility] Comment on above: Performed By: #### C MP ####[facility], [address] [place] [address] Albumin/Globulin Ratio 0.8 {ratio} Low 0.9-1.6 [facility] Comment on above: Performed By: #### C MP ####[facility], [address] [place] [address] Bilirubin (direct) 0.6 mg/dL Normal 0.2-1.2 [facility] Comment on above: Performed By: #### C MP ####[facility], [address] [place], [place] [id number] Globulin 4.2 G/dL High 1.5-3.8 [facility] Comment on above: Performed By: #### C MP ####[facility], [address] [place] [address] T. Protein 7.7 G/dL Normal 6.0-8.5 [facility] Comment on above: Performed By: #### C MP ####[facility], [address] [place] [address]641 BUN/Creatinine Ratio 20.0 mg/mg Normal 10.0-22.0 [facility] Comment on above: Performed By: #### C MP ####[facility], [address] [place], [place] [id number] Creatinine 0.40 mg/dL Low 0.50-1.20 [facility] Comment on above: Performed By: #### C MP ####[facility], [address] [place] [address] 15215 Alanine aminotransferase (ALT) 20 U/L Normal 10-49 [facility] Comment on above: Performed By: #### C MP ####[facility], [address] [place] [address]45 Aspartate aminotransferase (AST) 21 U/L Normal 8-34 [facility] Comment on above: Performed By: #### C MP ####[facility], [address] [place] [address] 67637 CO2 33 mmol/L High 22-32 [facility] Comment on above: Performed By: #### C MP ####[facility], [address] [place] [address] 13451 Electrolyte Balance 6.0 mEq/L Normal 4.0-15.0 [facility] Comment on above: Performed By: #### C MP ####[facility], [address] [place] [address]94 Glucose mass conc 254 mg/dL High 70-110 [facility] Comment on above: Performed By: #### C MP ####[facility], [address] [place] [address] 22228 Urea nitrogen 8.0 mg/dL Normal 8.0-22.0 [facility] Comment on above: Performed By: #### C MP ####[address] [address] Albumin 3.5 G/dL Normal 3.2-4.8 [facility] Comment on above: Performed By: #### C MP ####[address] [address] Calcium 9.2 mg/dL Normal 8.4-10.1 [facility] Comment on above: Performed By: #### C MP ####[address] [address] Chloride 99 mmol/L Normal 98-110 [facility] Comment on above: Performed By: #### C MP ####[address] [address] Potassium molar conc 4.6 mmol/L Normal 3.5-5.0 [facility] Comment on above: Performed By: #### C MP ####[address] [address] Sodium 138 mmol/L Normal 136-145 [facility] Comment on above: Performed By: #### C MP ####[address] [address] Glomerular Filtration Rate E stimateon 12-30-2016 eGFR (non-black) mL/min/{1.73_m2} Normal [facility] Comment on above: Performed By: #### G FR ####[place] [address] [place], [place] [id number] Result Comment: Lisa moscoso mean GFR = 93 mL/min/1.73 sq.m. for ages 50-59 years. Chronic Kidney Disease: Less than 60 mL/min/1.73 square metersEnd Stage Renal Disease: Less than 15 mL/min/1.73 square meters HDL Cholesterol Profileon HDL Cholesterol 48 mg/dL Normal 40-59 [facility] Comment on above: Result Comment: HDL Reference Interval: Less than 40 Low - high risk 60 or above Optimal/lowers risk ---- Performed By: #### L IPID ####[facility], [address] [place] [address] LDL Cholesterol 29 mg/dL Normal 0-129 [facility] Comment on above: Result Comment: LDL is a calculated result and requires a 12- hr fast. LDL Reference Interval: Less than 100 Optimal 100-129 Near or above optimal 130-159 Borderline high risk 160-189 High risk 190 and above Very high risk ----- Performed By: #### L IPID ####[facility], [address] [place], [place] [id number] Triglyceride 61 mg/dL Normal 3-149 [facility] Comment on above: Result Comment: Trig lyceride Reference Interval: Less than 150 Normal 150-199 Borderline high risk 200-499 High risk 500 or higher Very high risk ---- Performed By: #### L IPID ####[place] [address] Cholesterol 89 mg/dL Normal 50-199 [facility] Comment on above: Result Comment: Chol esterol Reference Interval: Less than 200 Desirable 200-239 Borderline high risk 240 and above High risk ---- Performed By: #### L IPID ####[place] [id number] Microalbumin, random (u)on 0 12-30-2016 Microalbumin (u) SEE BELOW Normal [facility] Comment on above: Result Comment: Micr oalbumin is less than 500 mcg/dL. Performed By: #### M ALBR ####[place] [address] Ratio of Alb/Creat SEE BELOW Normal 0.0-24.9 [facility] Comment on above: Result Comment: Micr oalbumin (mcg/dL) is less than instrument sensitivity.We are unable to calculate the Alb/Creat Ratio. Performed By: #### M ALBR ####[place] [address] Creatinine 51.5 mg/dL Normal [facility] Comment on above: Performed By: #### M ALBR ####[place] [address] TSHon 12-30-2016 Thyroid stimulating hormone (TSH) 0.35 mcIU/mL Low 0.36-3.74 [facility] Comment on above: Performed By: #### T SH ####[place] [address] Vit. D 25-Hydroxyon 12-31-19 17 Vit. D 25-Hydroxy 30 ng/mL Normal [facility] Comment on above: Result Comment: Inte rpretive Values Based on Total 25(OH)D: Severe Deficiency <20 ng/mL Mild to Moderate Deficiency 20-30 ng/mL Optimum Levels 30-100 ng/mL Toxicity Possible >100 ng/mL Performed By: #### V [facility] ####[facility], [address] [place] [address] Depart Summaryon 12-27-2016 Depart Summary Normal [facility] Inpatient Patient Summaryon 12-27-2016 Inpatient Patient Summary Normal [facility] XR SPINE CERVICAL AP/LATon 0 12-23-2016 XR SPINE CERVICAL AP/LAT ORIGINALXR SPINE CERVICAL AP/LAT CLINICAL STATEMENT: C2 Cervical Fracture COMPARISON: 11/24/2016 FINDINGS: AP and lateral views obtained. There is redemonstration of a fracture through the base of the odontoid and C2 body. The odontoid process appears slightly offset anteriorly and angulated anteriorly. The offset measures approximately 1 to 2 mm which is not appreciated on the prior radiograph. Otherwise, the alignment is unchanged. Mild marginal disc osteophytes noted. Multilevel facet and uncovertebral spurring seen. Lung apices are clear. IMPRESSION: 1. Redemonstration of a type III odontoid fracture. There now appears to be minimal anterior displacement of the odontoid fragment and slight anterior angulation of the odontoid fragment IMPORTANT. PHYSICIAN INPUT NECESSARY BRADY. Interpreted By: Saurabh Seo [facility] Report By: Saurabh Seo MDElectronically Signed By: Saurabh Seo MD Dictated Date: 12/23/2016 11:16:37 AM Prelim Date: 12/23/2016 11:16:37 AM Sign Date: 12/23/2016 11:21:04 AM Normal [facility] Vital Signs Date Time Vital Sign Value Performing Clinician Facility 10-23-2024 14:15-0400 Body mass index (BMI) [Ratio] 21.17 kg/m2 Pat Hinds APRN.DEMAND GENERATOR MANAGER Work Phone: [facility] 10-23-2024 14:15-0400 Body temperature 97.39 [degF] Pat Hinds APRN.DEMAND GENERATOR MANAGER Work Phone: [facility] 10-23-2024 14:15-0400 Body weight 59.5 kg Pat Hinds APRN.DEMAND GENERATOR MANAGER Work Phone: [facility] Comment on above: with shoes 10-23-2024 14:15-0400 Diastolic blood pressure 59 mm[Hg] Pat Bodmann FINE ARTS CHAIR.DEMAND GENERATOR MANAGER Work Phone: [facility] 10-23-2024 14:15-0400 Heart rate 98 /min Pat Hinds FINE ARTS CHAIR.DEMAND GENERATOR MANAGER Work Phone: [facility] 10-23-2024 14:15-0400 Respiratory rate 18 /min Pat Bodmartha FINE ARTS CHAIR.DEMAND GENERATOR MANAGER Work Phone: [facility] 10-23-2024 14:15-0400 SaO2% (BldA) [Mass fraction] 92 % Pat Bodmartha FINE ARTS CHAIR.DEMAND GENERATOR MANAGER Work Phone: [facility] Comment on above: RA 10-23-2024 14:15-0400 Systolic blood pressure 107 mm[Hg] Pat Bodmartha FINE ARTS CHAIR.DEMAND GENERATOR MANAGER Work Phone: [facility] 10-10-2024 11:26-0400 Body mass index (BMI) [Ratio] 21.46 kg/m2 Amrit Martinez MD Work Phone: [facility] 10-10-2024 11:26-0400 Body temperature 97.9 [degF] Amrit Martinez MD Work Phone: [facility] 10-10-2024 11:26-0400 Body weight 60.3 kg Amrit Martinez MD Work Phone: [facility] 10-10-2024 11:26-0400 Diastolic blood pressure 67 mm[Hg] Amrit Martinez MD Work Phone: [facility] 10-10-2024 11:26-0400 Heart rate 97 /min Amrit Martinez MD Work Phone: [facility] 10-10-2024 11:26-0400 Respiratory rate 18 /min Amrit Martinez MD Work Phone: [facility] 10-10-2024 11:26-0400 SaO2% (BldA) [Mass fraction] 96 % Amrit Martinez MD Work Phone: [facility] Comment on above: ra 10-10-2024 11:26-0400 Systolic blood pressure 119 mm[Hg] Amrit Martinez MD Work Phone: [facility] 09-12-2024 13:56-0400 Body height 169.4 cm Amrit Martinez MD Work Phone: [facility] 09-12-2024 13:56-0400 Body mass index (BMI) [Ratio] 21.71 kg/m2 Amrit Martinez MD Work Phone: [facility] 09-12-2024 13:56-0400 Body temperature 98.71 [degF] Amrit Martinez MD Work Phone: [facility] 09-12-2024 13:56-0400 Body weight 62.3 kg Amrit Martinez MD Work Phone: [facility] 09-12-2024 13:56-0400 Diastolic blood pressure 79 mm[Hg] Amrit Martinez MD Work Phone: [facility] 09-12-2024 13:56-0400 Heart rate 105 /min Amrit Martinez MD Work Phone: [facility] 09-12-2024 13:56-0400 Respiratory rate 18 /min Amrit Martinez MD Work Phone: [facility] 09-12-2024 13:56-0400 SaO2% (BldA) [Mass fraction] 97 % Amrit Martinez MD Work Phone: [facility] Comment on above: 09-12-2024 13:56-0400 Systolic blood pressure 132 mm[Hg] Amrit Martinez MD Work Phone: [facility] 09-05-2024 09:58-0400 Body height 170.18 cm No Primary Care Physician [facility] 09-05-2024 09:58-0400 Body weight 62.1 kg No Primary Care Physician [facility] 09-05-2024 08:29-0400 Body temperature 98.1 [degF] No Primary Care Physician [facility] 09-05-2024 08:29-0400 Diastolic blood pressure 68 mm[Hg] No Primary Care Physician [facility] 09-05-2024 08:29-0400 Heart rate 98 /min No Primary Care Physician [facility] 09-05-2024 08:29-0400 Respiratory rate 16 /min No Primary Care Physician [facility] 09-05-2024 08:29-0400 SaO2% (BldA) [Mass fraction] 100 % No Primary Care Physician [facility] 09-05-2024 08:29-0400 Systolic blood pressure 120 mm[Hg] No Primary Care Physician [facility] 09-05-2024 05:49-0400 Body mass index (BMI) [Ratio] 21.4 kg/m2 No Primary Care Physician [facility] 09-05-2024 00:19-0400 Body temperature 98 [degF] No Primary Care Physician [facility] 09-05-2024 00:19-0400 Diastolic blood pressure 76 mm[Hg] No Primary Care Physician [facility] 09-05-2024 00:19-0400 Heart rate 88 /min No Primary Care Physician [facility] 09-05-2024 00:19-0400 Respiratory rate 18 /min No Primary Care Physician [facility] 09-05-2024 00:19-0400 SaO2% (BldA) [Mass fraction] 97 % No Primary Care Physician [facility] 09-05-2024 00:19-0400 Systolic blood pressure 138 mm[Hg] No Primary Care Physician [facility] 09-04-2024 22:10-0400 Body height 170.18 cm No Primary Care Physician [facility] 09-04-2024 22:10-0400 Body mass index (BMI) [Ratio] 21.4 kg/m2 No Primary Care Physician [facility] 09-04-2024 22:10-0400 Body weight 62.14 kg No Primary Care Physician [facility] 08-30-2024 08:46-0400 Body mass index (BMI) [Ratio] 20.92 kg/m2 Enoch Paul MD Work Phone: [facility] 08-30-2024 08:46-0400 Body temperature 98.29 [degF] Enoch Paul MD Work Phone: [facility] 08-30-2024 08:46-0400 Body weight 60.6 kg Enoch Paul MD Work Phone: [facility] 08-30-2024 08:46-0400 Diastolic blood pressure 68 mm[Hg] Enoch Paul MD Work Phone: [facility] 08-30-2024 08:46-0400 Heart rate 106 /min Enoch Paul MD Work Phone: [facility] 08-30-2024 08:46-0400 Respiratory rate 18 /min Enoch Paul MD Work Phone: [facility] 08-30-2024 08:46-0400 SaO2% (BldA) [Mass fraction] 99 % Enoch Paul MD Work Phone: [facility] 08-30-2024 08:46-0400 Systolic blood pressure 109 mm[Hg] Enoch Paul MD Work Phone: [facility] 07-14-2024 19:13-0500 Diastolic Blood Pressure Non-Invasive 78 mm[Hg] DR LEILANI PRO MD [facility] 07-14-2024 19:13-0500 Heart rate 103 /min DR LEILANI PRO MD [facility] 07-14-2024 19:13-0500 Respiratory rate 16 /min DR LEILANI PRO MD [facility] 07-14-2024 19:13-0500 Systolic Blood Pressure Non-Invasive 137 mm[Hg] DR LEILANI PRO MD [facility] 07-14-2024 17:48-0500 Body temperature 97.52 [degF] DR LEILANI PRO MD [facility] 07-14-2024 17:48-0500 Body weight 62.[address] LEILANI PRO MD [facility] 07-14-2024 17:48-0500 Diastolic Blood Pressure Non-Invasive 79 mm[Hg] DR LEILANI PRO MD [facility] 07-14-2024 17:48-0500 Heart rate 110 /min DR LEILANI PRO MD [facility] 07-14-2024 17:48-0500 Respiratory rate 16 /min DR LEILANI PRO MD [facility] 07-14-2024 17:48-0500 Systolic Blood Pressure Non-Invasive 142 mm[Hg] DR LEILANI PRO MD [facility] 07-04-2024 13:47-0500 Body mass index (BMI) [Ratio] 21.2 kg/m2 No Primary Care Physician [facility] 07-04-2024 13:47-0500 Body temperature 97.9 [degF] No Primary Care Physician [facility] 07-04-2024 13:47-0500 Body weight 61.68 kg No Primary Care Physician [facility] 07-04-2024 13:47-0500 Diastolic blood pressure 87 mm[Hg] No Primary Care Physician [facility] 07-04-2024 13:47-0500 Heart rate 105 /min No Primary Care Physician [facility] 07-04-2024 13:47-0500 Respiratory rate 18 /min No Primary Care Physician [facility] 07-04-2024 13:47-0500 SaO2% (BldA) [Mass fraction] 96 % No Primary Care Physician [facility] 07-04-2024 13:47-0500 Systolic blood pressure 147 mm[Hg] No Primary Care Physician [facility] 04-30-2024 20:16-0500 Body temperature 98.06 [degF] DR LEILANI PRO MD [facility] 04-30-2024 20:16-0500 Body weight 62.[address] LEILANI PRO MD [facility] 04-30-2024 20:16-0500 Diastolic Blood Pressure Non-Invasive 88 mm[Hg] DR LEILANI PRO MD [facility] 04-30-2024 20:16-0500 Heart rate 107 /min DR LEILANI PRO MD [facility] 04-30-2024 20:16-0500 Respiratory rate 22 /min DR LEILANI PRO MD [facility] 04-30-2024 20:16-0500 Systolic Blood Pressure Non-Invasive 148 mm[Hg] DR LEILANI PRO MD [facility] 10-13-2023 18:18-0400 Body height 170.18 cm [facility] 10-13-2023 18:18-0400 Body mass index (BMI) [Ratio] 21.7 kg/m2 [facility] 10-13-2023 18:18-0400 Body temperature 96.5 [degF] [facility] 10-13-2023 18:18-0400 Body weight 63.04 kg [facility] 10-13-2023 18:18-0400 Diastolic blood pressure 84 mm[Hg] [facility] 10-13-2023 18:18-0400 Heart rate 102 /min [facility] 10-13-2023 18:18-0400 Respiratory rate 18 /min [facility] 10-13-2023 18:18-0400 SaO2% (BldA) [Mass fraction] 100 % [facility] 10-13-2023 18:18-0400 Systolic blood pressure 147 mm[Hg] [facility] 07-12-2022 22:40-0500 Body height 170.[address] BI GREENFIELD MD [facility] 07-12-2022 22:40-0500 Body temperature 98.06 [degF] DR BI GREENFIELD MD [facility] 07-12-2022 22:40-0500 Body weight 63.[address] BI GREENFIELD MD [facility] 07-12-2022 22:40-0500 Diastolic Blood Pressure Non-Invasive [address] BI GREENFIELD MD [facility] 07-12-2022 22:40-0500 Heart rate 93 /min DR BI GREENFIELD MD [facility] 07-12-2022 22:40-0500 Respiratory rate 22 /min DR BI GREENFIELD MD [facility] 07-12-2022 22:40-0500 Systolic Blood Pressure Non-Invasive [address] BI GREENFIELD MD [facility] 04-26-2022 00:07-0500 Diastolic blood pressure 70 mm[Hg] LEILANI KAMARA MD [facility] 04-26-2022 00:07-0500 Heart rate 96 /min LEILANI KAMARA MD [facility] 04-26-2022 00:07-0500 Respiratory rate 24 /min LEILANI KAMARA MD [facility] 04-26-2022 00:07-0500 Systolic blood pressure 123 mm[Hg] LEILANI KAMARA MD [facility] 04-25-2022 23:40-0500 Respiratory rate 26 /min LEILANI KAMARA MD [facility] 04-25-2022 23:26-0500 Diastolic blood pressure 84 mm[Hg] LEILANI KAMARA MD [facility] 04-25-2022 23:26-0500 Heart rate 99 /min LEILANI KAMARA MD [facility] 04-25-2022 23:26-0500 Mean blood pressure 98 mm[Hg] LEILANI KAMARA MD [facility] 04-25-2022 23:26-0500 Respiratory rate 29 /min LEILANI KAMARA MD [facility] 04-25-2022 23:26-0500 Systolic blood pressure 127 mm[Hg] LEILANI KAMARA MD [facility] 04-25-2022 23:15-0500 Heart rate 100 /min LEILANI KAMARA MD [facility] 04-25-2022 22:51-0500 Diastolic blood pressure 88 mm[Hg] LEILANI KAMARA MD [facility] 04-25-2022 22:51-0500 Systolic blood pressure 136 mm[Hg] LEILANI KAMARA MD [facility] 04-25-2022 22:10-0500 Body temperature 98.6 [degF] LEILANI KAMARA MD [facility] 04-25-2022 22:10-0500 Mean blood pressure 128 mm[Hg] LEILANI KAMARA MD [facility] 02-07-2021 13:00-0400 Diastolic blood pressure 78 mm[Hg] Fabricio Wright MD Work Phone: [facility] Work Phone: 02-07-2021 13:00-0400 Heart rate 89 /min Fabricio Wright MD Work Phone: [facility] Work Phone: 02-07-2021 13:00-0400 Respiratory rate 16 /min Fabricio Wright MD Work Phone: [facility] Work Phone: 02-07-2021 13:00-0400 SaO2% (BldA) [Mass fraction] 99 % Fabricio Wright MD Work Phone: [facility] Work Phone: 02-07-2021 13:00-0400 Systolic blood pressure 118 mm[Hg] Fabricio Wright MD Work Phone: [facility] Work Phone: 02-07-2021 10:47-0400 Body height 170.2 cm Fabricio Wright MD Work Phone: [facility] Work Phone: 02-07-2021 10:47-0400 Body mass index (BMI) [Ratio] 21.93 kg/m2 Fabricio Wright MD Work Phone: [facility] Work Phone: 02-07-2021 10:47-0400 Body temperature 97.2 [degF] Fabricio Wright MD Work Phone: [facility] Work Phone: 02-07-2021 10:47-0400 Body weight 63.5 kg Fabricio Wright MD Work Phone: [facility] Work Phone: 09-22-2020 07:35-0400 Body Temperature 98.01 [degF] Bertram TAMAYO Work Phone: 09-22-2020 07:35-0400 BP Diastolic 86 mm[Hg] Bertram Scotty [facility] Work Phone: 09-22-2020 07:35-0400 BP Systolic 134 mm[Hg] Bertram Scotty [facility] Work Phone: 09-22-2020 07:35-0400 Pulse (Heart Rate) 114 /min Bertram Scotty [facility] Work Phone: 09-21-2020 07:54-0400 Body Temperature 97.5 [degF] Bertram Scotty [facility] Work Phone: 09-21-2020 07:54-0400 BP Diastolic 93 mm[Hg] Bertram Scotty [facility] Work Phone: 09-21-2020 07:54-0400 BP Systolic 144 mm[Hg] Bertram TAMAYO Work Phone: 09-21-2020 07:54-0400 Pulse (Heart Rate) 115 /min Bertram TAMAYO Work Phone: 09-20-2020 07:52-0400 Body Temperature 98.01 [degF] Bertram TAMAYO Work Phone: 09-20-2020 07:52-0400 BP Diastolic 82 mm[Hg] Bertram TAMAYO Work Phone: 09-20-2020 07:52-0400 BP Systolic 154 mm[Hg] Bertram TAMAYO Work Phone: 09-20-2020 07:52-0400 Pulse (Heart Rate) 120 /min Bertram TAMAYO Work Phone: 09-19-2020 08:44-0400 BMI (Body Mass Index) 25.06 kg/m2 Huseyin TAMAYO Work Phone: 09-19-2020 08:44-0400 Body Temperature 97.3 [degF] Huseyin TAMAYO Work Phone: 09-19-2020 08:44-0400 Body weight 72.58 kg Huseyin TAMAYO Work Phone: 09-19-2020 08:44-0400 BP Diastolic 86 mm[Hg] Huseyin TAMAYO Work Phone: 09-19-2020 08:44-0400 BP Systolic 134 mm[Hg] Huseyni TAMAYO Work Phone: 09-19-2020 08:44-0400 Height 170.2 cm Huseyin TAMAYO Work Phone: 09-19-2020 08:44-0400 Pulse (Heart Rate) 94 /min Huseyin TAMAYO Work Phone: 09-19-2020 08:44-0400 Pulse Oximetry 99 % Huseyin TAMAYO Work Phone: 09-19-2020 08:44-0400 Respiratory Rate 16 /min Huseyin TAMAYO Work Phone: 09-19-2020 07:14-0400 Body Temperature 99 [degF] Bertram TAMAYO Work Phone: 09-19-2020 07:14-0400 BP Diastolic 92 mm[Hg] Bertram Scottyedith T[facility] Work Phone: 09-19-2020 07:14-0400 BP Systolic 146 mm[Hg] Bertram Scottyedith [facility] Work Phone: 09-19-2020 07:14-0400 Pulse (Heart Rate) 116 /min Bertram [facility] Work Phone: 09-18-2020 07:49-0400 Body Temperature 98.01 [degF] Bertram BLACKA Work Phone: 09-18-2020 07:49-0400 BP Diastolic 96 mm[Hg] Bertram BLACKA Work Phone: 09-18-2020 07:49-0400 BP Systolic 140 mm[Hg] Bertram TAMAYO Work Phone: 09-18-2020 07:49-0400 Pulse (Heart Rate) 117 /min Bertram BLACKA Work Phone: 09-18-2020 07:49-0400 Respiratory Rate 18 /min Bertram TAMAYO Work Phone: 09-16-2020 08:07-0400 Body Temperature 97.81 [degF] Bertram BLACKA Work Phone: 09-16-2020 08:07-0400 BP Diastolic 92 mm[Hg] Bertram Scotty [facility] Work Phone: 09-16-2020 08:07-0400 BP Systolic 139 mm[Hg] Bertram Scotty [facility] Work Phone: 09-16-2020 08:07-0400 Pulse (Heart Rate) 114 /min Bertram TAMAYO Work Phone: 09-16-2020 08:07-0400 Respiratory Rate 17 /min Bertram TAMAYO Work Phone: 09-15-2020 07:59-0400 Body Temperature 98.2 [degF] Bertram TAMAYO Work Phone: 09-15-2020 07:59-0400 BP Diastolic 98 mm[Hg] Bertram TAMAYO Work Phone: 09-15-2020 07:59-0400 BP Systolic 149 mm[Hg] Bertram TAMAYO Work Phone: 09-15-2020 07:59-0400 Pulse (Heart Rate) 125 /min Bertram TAMAYO Work Phone: 09-13-2020 08:48-0400 BMI (Body Mass Index) 25.82 kg/m2 Laci TAMAYO Work Phone: 09-13-2020 08:48-0400 Body Temperature 97.81 [degF] Laci TAMAYO Work Phone: 09-13-2020 08:48-0400 Body weight 72.58 kg Laci TAMAYO Work Phone: 09-13-2020 08:48-0400 BP Diastolic 85 mm[Hg] Laci BLACKA Work Phone: 09-13-2020 08:48-0400 BP Systolic 157 mm[Hg] Laci BLACKA Work Phone: 09-13-2020 08:48-0400 Height 167.6 cm Laci BLACKA Work Phone: 09-13-2020 08:48-0400 Pulse (Heart Rate) 110 /min Laci BLACKA Work Phone: 09-13-2020 08:48-0400 Pulse Oximetry 100 % Laci TAMAYO Work Phone: 09-13-2020 08:48-0400 Respiratory Rate 20 /min Laci TAMAYO Work Phone: 09-13-2020 07:19-0400 Body Temperature 98.91 [degF] Bertram BLACKA Work Phone: 09-13-2020 07:19-0400 BP Diastolic 103 mm[Hg] Bertram Scottyedith [facility] Work Phone: 09-13-2020 07:19-0400 BP Systolic 157 mm[Hg] Bertram Scotty [facility] Work Phone: 09-13-2020 07:19-0400 Pulse (Heart Rate) 111 /min Bertram Tellezblete [facility] Work Phone: 09-11-2020 08:47-0400 BP Diastolic 101 mm[Hg] Bertram BLACKA Work Phone: 09-11-2020 08:47-0400 BP Systolic 144 mm[Hg] Bertram BLACKA Work Phone: 09-11-2020 08:47-0400 Pulse (Heart Rate) 112 /min Bertram BLACKA Work Phone: 09-11-2020 08:20-0400 Body Temperature 98.6 [degF] Bertram Tellezblemelissa [facility] Work Phone: 09-11-2020 08:20-0400 Respiratory Rate 17 /min Bertram Scotty [facility] Work Phone: 09-10-2020 07:45-0400 Body Temperature 97.59 [degF] Bertram Scotty [facility] Work Phone: 09-10-2020 07:45-0400 BP Diastolic 99 mm[Hg] Bertram Scotty [facility] Work Phone: 09-10-2020 07:45-0400 BP Systolic 144 mm[Hg] Bertram Scotty [facility] Work Phone: 09-10-2020 07:45-0400 Pulse (Heart Rate) 119 /min Bertram BLACKA Work Phone: 09-09-2020 08:07-0400 Body Temperature 98.01 [degF] Bertram BLACKA Work Phone: 09-09-2020 08:07-0400 BP Diastolic 93 mm[Hg] Bertram BLACKA Work Phone: 09-09-2020 08:07-0400 BP Systolic 138 mm[Hg] Bertram BLACKA Work Phone: 09-09-2020 08:07-0400 Pulse (Heart Rate) 116 /min Bertram BLACKA Work Phone: 09-09-2020 08:07-0400 Respiratory Rate 18 /min Bertram BLACKA Work Phone: 09-08-2020 08:18-0400 Body Temperature 98.6 [degF] Bertram TAMAYO Work Phone: 09-08-2020 08:18-0400 BP Diastolic 107 mm[Hg] Bertram BLACKA Work Phone: 09-08-2020 08:18-0400 BP Systolic 162 mm[Hg] Bertram TAMAYO Work Phone: 09-08-2020 08:18-0400 Pulse (Heart Rate) 121 /min Bertram TAMAYO Work Phone: 09-08-2020 08:18-0400 Respiratory Rate 18 /min Bertram BLACKA Work Phone: 09-07-2020 08:16-0400 Body Temperature 97.7 [degF] Bertram BLACKA Work Phone: 09-07-2020 08:16-0400 BP Diastolic 108 mm[Hg] Bertram Scottyedith BLACKA Work Phone: 09-07-2020 08:16-0400 BP Systolic 155 mm[Hg] Bertram BLACKA Work Phone: 09-07-2020 08:16-0400 Pulse (Heart Rate) 114 /min Bertram BLACKA Work Phone: 09-06-2020 08:14-0400 Body Temperature 97.59 [degF] Bertram BLACKA Work Phone: 09-06-2020 08:14-0400 BP Diastolic 91 mm[Hg] Bertram Scotty [facility] Work Phone: 09-06-2020 08:14-0400 BP Systolic 138 mm[Hg] Bertram Scottyedith BLACKA Work Phone: 09-06-2020 08:14-0400 Pulse (Heart Rate) 111 /min Bertram BLACKA Work Phone: 09-04-2020 08:27-0400 BP Diastolic 98 mm[Hg] Bertram BLACKA Work Phone: 09-04-2020 08:27-0400 BP Systolic 141 mm[Hg] Bertram BLACKA Work Phone: 09-04-2020 08:27-0400 Pulse (Heart Rate) 105 /min Bertram BLACKA Work Phone: 09-03-2020 08:05-0400 Body Temperature 99.7 [degF] Bertram BLACKA Work Phone: 09-03-2020 08:05-0400 BP Diastolic 99 mm[Hg] Bertram Scottyedith BLACKA Work Phone: 09-03-2020 08:05-0400 BP Systolic 164 mm[Hg] Bertram Scottyedith BLACKA Work Phone: 09-03-2020 08:05-0400 Pulse (Heart Rate) 100 /min Bertram Scotty [facility] Work Phone: 09-02-2020 08:46-0400 Body Temperature 98.91 [degF] Bertram Scotty [facility] Work Phone: 09-02-2020 08:46-0400 BP Diastolic 95 mm[Hg] Bertram Scotty [facility] Work Phone: 09-02-2020 08:46-0400 BP Systolic 167 mm[Hg] Bertram Scotty [facility] Work Phone: 09-02-2020 08:46-0400 Pulse (Heart Rate) 98 /min Bertram Scotty [facility] Work Phone: 09-01-2020 08:16-0400 Body Temperature 96.91 [degF] Bertram Scotty [facility] Work Phone: 09-01-2020 08:16-0400 BP Diastolic 95 mm[Hg] Bertram Scotty [facility] Work Phone: 09-01-2020 08:16-0400 BP Systolic 165 mm[Hg] Bertram Scotty [facility] Work Phone: 09-01-2020 08:16-0400 Pulse (Heart Rate) 92 /min Bertram Scotty [facility] Work Phone: 08-31-2020 08:14-0400 Body Temperature 99.81 [degF] Bertram Scottyedith BLACKA Work Phone: 08-31-2020 08:14-0400 BP Diastolic 101 mm[Hg] Bertram Scotty [facility] Work Phone: 08-31-2020 08:14-0400 BP Systolic 156 mm[Hg] Bertram Scotty [facility] Work Phone: 08-31-2020 08:14-0400 Pulse (Heart Rate) 93 /min Bertram Scotty [facility] Work Phone: 08-30-2020 08:08-0500 Body Temperature 110.61 [degF] Bertram Scotty [facility] Work Phone: 08-30-2020 08:08-0500 BP Diastolic 89 mm[Hg] Bertram Scotty [facility] Work Phone: 08-30-2020 08:08-0500 BP Systolic 157 mm[Hg] Bertram Scotty [facility] Work Phone: 08-30-2020 08:08-0500 Pulse (Heart Rate) 99 /min Bertram TAMAYO Work Phone: 08-30-2020 08:08-0500 Respiratory Rate 20 /min Bertram TAMAYO Work Phone: 08-29-2020 09:08-0500 Body Temperature 98.8 [degF] Zackary TAMAYO Work Phone: 08-29-2020 09:08-0500 BP Diastolic 74 mm[Hg] Zackary TAMAYO Work Phone: 08-29-2020 09:08-0500 BP Systolic 146 mm[Hg] Zackary TAMAYO Work Phone: 08-29-2020 09:08-0500 Pulse (Heart Rate) 86 /min Zackary TAMAYO Work Phone: 08-29-2020 09:08-0500 Pulse Oximetry 96 % Zackary TAMAYO Work Phone: 08-29-2020 09:08-0500 Respiratory Rate 20 /min Zackary TAMAYO Work Phone: 10-10-2018 16:46-0400 BMI (Body Mass Index) 28.19 kg/m2 Deniz [place] [facility] Work Phone: 10-10-2018 16:46-0400 BP Diastolic 70 mm[Hg] Deniz [place]au -[facility] Work Phone: 10-10-2018 16:46-0400 BP Systolic 130 mm[Hg] Deniz Alejandroertu -[facility]olog [facility] Work Phone: 10-10-2018 16:46-0400 BSA (Body Surface Area) 1.93 m2 Deniz Allenertu -[facility] Work Phone: 10-10-2018 16:46-0400 Height 170.18 cm Deniz Rodriguez [facility] Work Phone: 10-10-2018 16:46-0400 Pulse (Heart Rate) 88 /min Deniz Rodriguez [facility] Work Phone: 10-10-2018 16:46-0400 Weight 81.65 kg Deniz Rodriguez [facility] Work Phone: Encounters Encounter Date Encounter Type Care Provider Facility Start: 11-23-2024 End: 11-23-2024 ambulatory ENOCH PAUL [facility] Start: 11-22-2024 End: 11-22-2024 Telephone encounter Amaury Fleming MD Work Phone: Radiation Oncology Start: 11-22-2024 End: 11-22-2024 ambulatory ENOCH Edson PAUL [facility] Start: 11-20-2024 End: 11-21-2024 Telephone encounter Enoch Paul MD Work Phone: Radiation Oncology Comment on above: Car Hiker - O ther; Patient Question Start: 11-20-2024 ambulatory No Primary Car e Physician Facility:[facility] Start: 11-19-2024 End: 11-21-2024 Orders Only Tressa Collazo APRN.DEMAND GENERATOR MANAGER Work Phone: Endocrinology Comment on above: Car Hiker - O ther (Follow up) Start: 11-15-2024 End: 11-15-2024 ambulatory Monalisa [facility] Start: 11-15-2024 End: 11-15-2024 Patient encounter [facility] Comment on above: SPP Injectab Oncolog y/hematology-Treatment Referral (Nivestym 300 mcg ); Insurance Authorization (PA pending ) Start: 11-12-2024 End: 11-19-2024 Evaluation and management of inpatient SANJAY CORREA [facility] Start: 11-09-2024 End: 11-12-2024 Evaluation and management of inpatient ANUEL ASTORGA Facility:[id number] Start: 11-08-2024 End: 11-15-2024 Orders Only Johana Sagastume MD Work Phone: Hematology/Oncology Comment on above: Cancer related pain (Primary Dx); Malignant neoplasm metastatic to lung, unspecified laterality (HCC) Start: 11-04-2024 End: 11-04-2024 Telephone encounter Celeste Merlos MD Work Phone: Hematology/Oncology Start: 10-23-2024 End: 10-24-2024 ambulatory Chair 3 [facility] Work Phone: Hematology/Oncology Comment on above: Encounter for antine oplastic immunotherapy (Primary Dx); Squamous cell carcinoma, arm, left Start: 10-23-2024 End: 10-23-2024 Patient encounter procedure Pat Hinds FINE ARTS CHAIR.DEMAND GENERATOR MANAGER Work Phone: Hematology/Oncology Start: 10-23-2024 End: 10-23-2024 ambulatory Lab Port[facility] 1 Work Phone: Hematology/Oncology Comment on above: Squamous cell carcin camila, arm, left First Time Treatment Education Squamous cell carcin camila, arm, left (Primary Dx); Malignant neoplasm metastatic to lung, unspecified laterality (HCC); Cancer related pain; History of lymphoma Start: 10-16-2024 End: 10-16-2024 Telephone encounter Johana Sagastume MD Work Phone: Hematology/Oncology Comment on above: Care Coordination; A ppointment Start: 10-10-2024 End: 10-10-2024 Patient encounter procedure Amrit Martinez MD Work Phone: Palliative Medicine Start: 10-10-2024 End: 10-10-2024 ambulatory Amrit Martinez MD Work Phone: Palliative Medicine Comment on above: Palliative care by s pecialist (Primary Dx); Squamous cell carcinoma, arm, left; Cancer related pain; Opioid use agreement exists Start: 10-05-2024 End: 10-05-2024 Telephone encounter Johana Sagastume MD Work Phone: Hematology/Oncology Comment on above: Care Coordination; R esults Start: 10-02-2024 End: 10-02-2024 ambulatory [facility] Facility[facility] Start: 10-02-2024 End: 10-02-2024 ambulatory [facility] Start: 10-01-2024 End: 10-01-2024 ambulatory Brenna Leary EDGARDO Work Phone: Pulmonary Medicine Comment on above: Right lower lobe gavino g mass (Primary Dx); Lymphadenopathy; Non-Hodgkin's lymphoma, unspecified body region, unspecified non-Hodgkin lymphoma type (HCC); Preop examination; SCC (squamous cell carcinoma), arm, left Start: 10-01-2024 End: 10-01-2024 Telemedicine consultation with patient Brenna Leary CARLDionna Work Phone: Pulmonary Medicine Start: 10-01-2024 End: 10-01-2024 Preprocedural examination done Brenna Brown REYNOSO Work Phone: [facility] Start: 10-01-2024 End: 10-01-2024 Telephone encounter Johana Sagastume MD Work Phone: Hematology/Oncology Comment on above: Care Coordination Care Coordination (P rocedure Tomorrow) Start: 10-01-2024 Encounter for other preprocedural examination BRENNA LEARY [facility] Start: 09-28-2024 End: 09-28-2024 Telephone encounter Conchita Mcdaniel MD Work Phone: Pulmonary Medicine Comment on above: Patient Question Start: 09-28-2024 End: 09-28-2024 ambulatory Conchita Mcdaniel MD Work Phone: Pulmonary Medicine Comment on above: Right lower lobe gvaino g mass (Primary Dx) Start: 09-28-2024 End: 09-28-2024 Telemedicine consultation with patient Conchita Mcdaniel MD Work Phone: Pulmonary Medicine Start: 09-25-2024 End: 10-04-2024 Telephone encounter Bi Ho APRN.CNP Work Phone: Endocrinology Comment on above: Insurance Authorizat ion Start: 09-23-2024 End: 11-23-2024 Follow-up encounter Bi Ho FINE ARTS CHAIR.DEMAND GENERATOR MANAGER Work Phone: Endocrinology Start: 09-21-2024 End: 09-21-2024 Telephone encounter Johana Sagastume MD Work Phone: Hematology/Oncology Comment on above: Care Coordination Appointment; Broncho scopy Scheduling Start: 09-19-2024 End: 09-19-2024 Telephone encounter Johana Sagastume MD Work Phone: Hematology/Oncology Comment on above: Car Hiker - O ther (Biopsy) Start: 09-18-2024 End: 09-18-2024 Telephone encounter Johana Sagastume MD Work Phone: Hematology/Oncology Comment on above: Care Coordination (M carlos impairment, disorientation, urinating on the floor. ) Start: 09-17-2024 End: 09-17-2024 ambulatory Cris Burnette MD Work Phone: Pulmonary Medicine Comment on above: Bronchoscopy Schedul ing- CLEARED (Initial bronch request) Refill Request Start: 09-14-2024 End: 09-14-2024 Telephone encounter Mirella Bah RN Work Phone: Palliative Medicine Comment on above: Palliative Care; Car e Coordination Start: 09-14-2024 End: 09-14-2024 ambulatory BI HO Facility:[id number] Start: 09-12-2024 End: 09-12-2024 ambulatory Amrit Martinez MD Work Phone: Palliative Medicine Comment on above: Palliative care by s pecialist (Primary Dx); Squamous cell carcinoma, arm, left; Cancer related pain Start: 09-12-2024 End: 09-12-2024 Patient encounter procedure Amrit Martinez MD Work Phone: Palliative Medicine Start: 09-12-2024 End: 09-12-2024 Telephone encounter Johana Sagastume MD Work Phone: Hematology/Oncology Start: 09-10-2024 End: 09-10-2024 ambulatory SELF [facility] Start: 09-10-2024 End: 09-10-2024 Subsequent hospital visit by physician [facility] Start: 09-07-2024 End: 09-07-2024 Subsequent hospital visit by physician [facility] Comment on above: Cancer of skin of le ft forearm [C44.609] Start: 09-07-2024 End: 09-07-2024 Telemedicine consultation with patient Bi Paredesolson KELLE.DEMAND GENERATOR MANAGER Work Phone: Endocrinology Start: 09-07-2024 End: 09-07-2024 ambulatory Bi Ho FINE ARTS CHAIR.DEMAND GENERATOR MANAGER Work Phone: Endocrinology Comment on above: Poorly control type 2 diabetes mellitus (HCC) (Primary Dx); Poorly controlled type 2 diabetes mellitus with complication (HCC); Diabetes mellitus treated with insulin (HCC) Start: 09-04-2024 End: 09-05-2024 ambulatory Huseyin Truong Facility:[facility] Start: 09-04-2024 End: 09-05-2024 Evaluation and management of inpatient Dr. 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) Start: 08-30-2024 End: 09-03-2024 Telephone encounter Charlotte Pollock RN Work Phone: Radiation Oncology Comment on above: Nm Pet Request Start: 08-30-2024 End: 08-30-2024 ambulatory Johana Sagastume MD Work Phone: Hematology/Oncology Comment on above: Squamous cell carcin camila, arm, left (Primary Dx); Cancer related pain Start: 08-30-2024 End: 08-30-2024 Patient encounter procedure Enoch Paul MD Work Phone: Radiation Oncology Comment on above: 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) Start: 08-20-2024 End: 08-20-2024 Telephone encounter Tiffanie Avila MD Work Phone: Orthopaedics Comment on above: Results Start: 08-16-2024 End: 08-16-2024 Office outpatient new 60 minutes Tiffanie Avila MD Work Phone: Orthopaedics Comment on above: Mass of left upper e xtremity (Primary Dx) Start: 08-16-2024 End: 08-16-2024 ambulatory TIFFANIE AVILA Facility[facility] Start: 08-16-2024 End: 08-16-2024 Subsequent hospital visit by physician X[facility] Rad[facility] Comment on above: Localized superficia l swelling, mass, or lump [R22.9] Start: 08-09-2024 End: 08-09-2024 Orders Only Tiffanie Avila MD Work Phone: Orthopaedics Comment on above: Localized superficia l swelling, mass, or lump (Primary Dx) Start: 07-29-2024 End: 07-29-[address] Brigette Cuba MD -MRI - [facility] Work Phone: Start: 07-29-2024 End: 07-29-2024 ambulatory Brigette Cuba Facility:[facility] Start: 07-14-2024 End: 07-14-2024 Emergency department patient visit DR LEILANI PRO MD [facility] Start: 07-04-2024 End: 07-04-[address] Brigette Cuba MD -[facility] Work Phone: Start: 07-04-2024 End: 07-04-2024 ambulatory Brigette Cuba Facility:[facility] Start: 06-28-2024 End: 06-28-2024 ambulatory NONE PHYSICIAN Facility:A Start: 06-28-2024 End: 06-28-[address] DAMIAN ADAMS MD [facility] Start: 04-30-2024 End: 04-30-2024 Emergency department patient visit DR LEILANI PRO MD [facility] Start: 10-13-2023 End: 10-13-2023 Emergency department patient visit FABRICIO SANTOS MD Facility:[facility] Start: 10-13-2023 End: 10-13-2023 Emergency department patient visit [facility] Work Phone: Start: 07-12-2022 End: 07-12-2022 Emergency department patient visit DR BI GREENFIELD MD [facility] Start: 05-22-2022 End: 05-22-2022 Emergency department patient visit Facility:[facility] Start: 04-25-2022 End: 04-26-2022 Emergency department patient visit LEILANI KAMARA MD [facility] Start: 01-20-2022 End: 01-20-2022 Emergency department patient visit Facility:[facility] Start: 02-07-2021 End: 02-07-2021 Emergency department patient visit Fabricio Wright MD Work Phone: [facility] Emergency Dept Comment on above: Disseminated herpes zoster (Primary Dx); Right flank pain Start: 10-01-2020 End: 10-01-2020 Subsequent hospital visit by physician Bertram Mcmillan Work Phone: [facility] Comment on above: Group B streptococca l infection; Acute bacterial endocarditis; Port or reservoir infection, subsequent encounter; Encounter for long-term (current) use of antibiotics Start: 09-22-2020 End: 09-22-2020 Subsequent hospital visit by physician Bertram Mcmillan Work Phone: [facility] Comment on above: Group B streptococca l infection (Primary Dx) Start: 09-21-2020 End: 09-21-2020 Subsequent hospital visit by physician Bertram Mcmillan Work Phone: [facility] Comment on above: Group B streptococca l infection (Primary Dx) Start: 09-20-2020 End: 09-20-2020 Subsequent hospital visit by physician Bertram Mcmillan Work Phone: [facility] Comment on above: Group B streptococca l infection (Primary Dx) Start: 09-19-2020 End: 09-19-2020 Emergency department patient visit Huseyin Laurent Work Phone: [facility] Emergency Dept Comment on above: Encounter for medica tion refill (Primary Dx); Essential hypertension Start: 09-19-2020 End: 09-19-2020 Subsequent hospital visit by physician Bertram Mcmillan Work Phone: [facility] Comment on above: Group B streptococca l infection (Primary Dx) Start: 09-18-2020 End: 09-18-2020 Subsequent hospital visit by physician Bertram Mcmillan Work Phone: [facility] Comment on above: Group B streptococca l infection (Primary Dx) Start: 09-16-2020 End: 09-16-2020 Subsequent hospital visit by physician Bertram Mcmillan Work Phone: [facility] Comment on above: Group B streptococca l infection (Primary Dx) Start: 09-15-2020 End: 09-15-2020 Subsequent hospital visit by physician Bertram Mcmillan Work Phone: [facility] Comment on above: Group B streptococca l infection (Primary Dx) Start: 09-13-2020 End: 09-13-2020 Emergency department patient visit Laci Albrecht Work Phone: [facility] Emergency Dept Comment on above: Hyperglycemia (Prima ry Dx); Hypertensive urgency Start: 09-13-2020 End: 09-13-2020 Subsequent hospital visit by physician Bertram Hernandez Phone: [facility] Comment on above: Group B streptococca l infection (Primary Dx) Start: 09-11-2020 End: 09-11-2020 Subsequent hospital visit by physician Bertram Mcmillan Work Phone: [facility] Comment on above: Group B streptococca l infection (Primary Dx) Start: 09-10-2020 End: 09-10-2020 Subsequent hospital visit by physician Bertram Hernandez Phone: [facility] Comment on above: Group B streptococca l infection (Primary Dx) Start: 09-09-2020 End: 09-09-2020 Subsequent hospital visit by physician Bertram Mcmillan Work Phone: [facility] Comment on above: Group B streptococca l infection (Primary Dx) Start: 09-08-2020 End: 09-08-2020 Subsequent hospital visit by physician Bertram Mcmillan Work Phone: [facility] Comment on above: Group B streptococca l infection (Primary Dx) Start: 09-07-2020 End: 09-07-2020 Subsequent hospital visit by physician Bertram Mcmillan Work Phone: [facility] Comment on above: Group B streptococca l infection (Primary Dx) Start: 09-06-2020 End: 09-06-2020 Subsequent hospital visit by physician Bertram Mcmillan Work Phone: [facility] Comment on above: Group B streptococca l infection (Primary Dx) Start: 09-04-2020 End: 09-04-2020 Subsequent hospital visit by physician Bertram Mcmillan Work Phone: [facility] Comment on above: Group B streptococca l infection (Primary Dx) Start: 09-03-2020 End: 09-03-2020 Subsequent hospital visit by physician Bertram Mcmillan Work Phone: [facility] Comment on above: Group B streptococca l infection (Primary Dx) Start: 09-02-2020 End: 09-02-2020 Subsequent hospital visit by physician Bertram Mcmillan Work Phone: [facility] Comment on above: Group B streptococca l infection (Primary Dx) Start: 09-01-2020 End: 09-01-2020 Subsequent hospital visit by physician Bertram Mcmillan Work Phone: [facility] Comment on above: Group B streptococca l infection (Primary Dx) Start: 08-31-2020 End: 08-31-2020 Subsequent hospital visit by physician Bertram Mcmillan Work Phone: [facility] Comment on above: Group B streptococca l infection (Primary Dx) Start: 08-30-2020 End: 08-30-2020 Subsequent hospital visit by physician Bertram Mcmillan Work Phone: [facility] Comment on above: Group B streptococca l infection (Primary Dx) Start: 08-26-2020 End: 08-29-2020 Evaluation and management of inpatient Zackary Kim [facility] Phone[facility] Start: 10-24-2018 Patient encounter procedure Deniz Alejandroramone VE-Nnavkveuczymnl-Mjbj rban Work Phone: Start: 10-10-2018 Patient encounter procedure Deniz Lavramone SP-Rsvxrhrwukadti-Lpgy rban Work Phone: Start: 12-30-2016 Ambulatory BETHANY MCKENNA Fac ility:[facility] Start: 12-23-2016 End: 12-24-2016 Ambulatory NENA RIVERA Facility:[facility] Procedures Date Procedure Procedure Detail Performing Clinician Start: 10-23-2024 Comprehensive metabo lic panel Johana Sagastume MD Work Phone: Start: 09-10-2024 Gluc bld gluc mntr d ev cleared fda spec home use [facility] Provider Start: 08-16-2024 Radex forearm 2 views C asandra McFrederick PA-C Work Phone: Start: 07-29-2024 MRI of upper limb No Pr imary Care Physician Start: 02-07-2021 Ct abdomen & pelvis w/o contrast material Karlie Wilburn PA-C Work Phone: Start: 02-07-2021 Basic metabolic pane l calcium total Karlie Wilburn PA-C Work Phone: Start: 02-07-2021 Hepatic function panel Karlie Wilburn PA-C Work Phone: Start: 02-07-2021 Urnls dip stick/tabl et rgnt auto w/o microscopy Karlie Wilburn PA-C Work Phone: Start: 09-13-2020 Gluc bld gluc mntr d ev cleared fda spec home use Laci Adusumilli Work Phone: Start: 09-13-2020 Radiologic exam ches t single view Laci Adusumilli Work Phone: Start: 09-13-2020 Assay of troponin quantitative Laci Adusumilli Work Phone: Start: 09-13-2020 Basic metabolic pane l calcium total Laci Adusumilli Work Phone: Start: 09-10-2020 Blood count complete auto&auto difrntl wbc Bertram Mcmillan Work Phone: Start: 09-10-2020 Hepatic function panel Bertram Mcmillan Work Phone: Start: 09-03-2020 Blood count complete auto&auto difrntl wbc Bertram Mcmillan Work Phone: Start: 09-03-2020 Hepatic function panel Bertram Mcmillan Work Phone: Start: 08-29-2020 Ecg routine ecg w/le ast 12 lds w/i&r Ronel Licea Work Phone: Start: 08-29-2020 Gluc bld gluc mntr d ev cleared fda spec home use Zackary Kim Work Phone: Start: 08-29-2020 Gluc bld gluc mntr d ev cleared fda spec home use Zackary Kim Work Phone: Start: 08-28-2020 Gluc bld gluc mntr d ev cleared fda spec home use Zackary Kim Work Phone: Start: 08-28-2020 Gluc bld gluc mntr d ev cleared fda spec home use Zackary Kim Work Phone: Start: 08-28-2020 Gluc bld gluc mntr d ev cleared fda spec home use Zackary Kim Work Phone: Start: 08-28-2020 Gluc bld gluc mntr d ev cleared fda spec home use Zackary Kim Work Phone: Start: 08-27-2020 Gluc bld gluc mntr d ev cleared fda spec home use Zackary Kim Work Phone: Start: 08-27-2020 Gluc bld gluc mntr d ev cleared fda spec home use Zackary Kim Work Phone: Start: 08-27-2020 Dup-scan xtr veins unilateral/limited study Jose RobertoOlya Mcmillan Work Phone: Start: 08-27-2020 Culture bacterial bl ood aerobic w/id isolates Radha Holliday Work Phone: Start: 08-27-2020 CULTURE, BLOOD 1 Radha Holliday Work Phone: Start: 08-27-2020 Gluc bld gluc mntr d ev cleared fda spec home use Zackary Kim Work Phone: Start: 08-27-2020 Gluc bld gluc mntr d ev cleared fda spec home use Zackary Kim Work Phone: Start: 08-27-2020 Assay of magnesium Js Rojas Work Phone: Start: 08-27-2020 Blood count complete auto&auto difrntl wbc Richmond Rojas Work Phone: Start: 08-27-2020 Hemoglobin glycosyla dale a1c Richmond Rojas Work Phone: Start: 08-26-2020 Gluc bld gluc mntr d ev cleared fda spec home use Zackary Kim Work Phone: Start: 04-15-2017 Lipid 1996 panel - S kinza or Plasma Tiffanie Avila MD Work Phone: Start: 08-02-2016 Colonoscopy Tiffanie astorga MD Work Phone: section LEILANI HERNADEZ MD Port (substance) LEILANI HERNADEZ MD Plan of Treatment Date Care Activity Detail Author Start: 2033 RSV Vaccine (1 - 1-dose 75+ series) RSV Vaccine (1 - 1-dose 75+ series) [facility] Start: 10-24-2027 Diabetes Screening Diabetes Screening [facility] Start: 09-15-2027 Diabetes Screening Diabetes Screening [facility] Start: 09-05-2027 Diabetes Screening Diabetes Screening [facility] Start: 11-22-2025 BP Controlled (<130/80) BP Controlled (<130/80) [facility] Start: 10-23-2025 BP Controlled (<130/80) BP Controlled (<130/80) [facility] Start: 10-10-2025 BP Controlled (<130/80) BP Controlled (<130/80) [facility] Start: 09-14-2025 Hepatitis B screening Urine Albumin:Creatinine Ratio [facility] Start: 08-30-2025 BP Controlled (<130/80) BP Controlled (<130/80) [facility] Start: 12-27-2024 End: 12-27-2024 ambulatory 12/27/2024 11:15 AM EDT [facility] Hematology/Oncology [id number] [place], [place] [id number] Nick HARRY Hematology/Oncology Comment on above: Nick HARRY Start: 12-27-2024 End: 12-27-2024 Follow-up encounter 12/27/2024 10:30 AM EDT Visit (SP) Office Hematology/Oncology [address] [place] [address] Pat Hinds, FINE ARTS CHAIR.DEMAND GENERATOR MANAGER [address] [place] [address] Follow uP Hematology/Oncology Comment on above: Follow uP Start: 12-27-2024 End: 12-27-2024 ambulatory 12/27/2024 9:20 AM EDT Infusion Center Hematology/Oncology [id number] [place] [address] [facility] Hematology/Oncology Comment on above: DRAW LABS Start: 12-22-2024 Diabetes Screening Diabetes Screening [facility] Start: 12-20-2024 End: 12-20-2024 Follow-up encounter 12/20/2024 3:00 PM EDT Visit (SP) Office Hematology/Oncology [address] [place] [id number] Johana Sagastume MD [address] [place] [address] Follow uP Hematology/Oncology Comment on above: Follow uP Start: 12-20-2024 End: 12-20-2024 ambulatory Hematology/Oncology Comment on above: DRAW LABS Nick HARRY Start: 12-07-2024 End: 12-07-2024 ambulatory 12/07/2024 11:30 AM EDT [facility] Endocrinology [address] [place] [address] [place] [address] Camelia Polo, FINE ARTS CHAIR.DEMAND GENERATOR MANAGER [address] [place] [address] Diabetes-post hospitalization Endocrinology Comment on above: Diabetes-post hospitalization Start: 12-06-2024 End: 12-06-2024 ambulatory 12/06/2024 11:45 AM EDT Infusion Center Hematology/Oncology [address] [place] [address] Nick HARRY Hematology/Oncology Comment on above: Nick HARRY Start: 12-06-2024 End: 12-06-2024 Follow-up encounter 12/06/2024 10:30 AM EDT Visit (SP) Office Hematology/Oncology [address] [place] [address] Pat Hinds, FINE ARTS CHAIR.DEMAND GENERATOR MANAGER [address] [place] [address] Follow uP Hematology/Oncology Comment on above: Follow uP Start: 12-06-2024 End: 12-06-2024 ambulatory 12/06/2024 9:20 AM EDT [facility] Center Hematology/Oncology [address] [place] [address] DRAW LABS Hematology/Oncology Comment on above: DRAW LABS Start: 12-06-2024 End: 12-06-2024 Patient encounter procedure 12/06/2024 8:00 AM EDT Office Visit Radiation Oncology [id number] [place] [address] Enoch Paul MD [address] [place] [address] Follow up per WQ Radiation Oncology Comment on above: Follow up per WQ Start: 12-05-2024 Hemoglobin A1c measurement HbA1C [facility] Start: 12-05-2024 End: 12-05-2024 Follow-up encounter Palliative Medicine Comment on above: Pall med follow up per WQ Start: 11-29-2024 End: 11-29-2024 Follow-up encounter 11/29/2024 9:00 AM EDT Visit (SP) Office Hematology/Oncology [address] [place] [address] Pat Hinds, FINE ARTS CHAIR.DEMAND GENERATOR MANAGER [address] [place] [address] Follow uP Hematology/Oncology Comment on above: Follow uP Start: 11-29-2024 End: 11-29-2024 ambulatory Hematology/Oncology Comment on above: DRAW LABS Nick HARRY Start: 11-23-2024 End: 11-23-2024 ambulatory 11/23/2024 3:00 PM EDT Visit (SP) Office Hematology/Oncology [address] [place] [address] [place] [address] [place] [address] HOs Discharge F/U Hematology/Oncology Comment on above: HOs Discharge F/U Start: 11-23-2024 End: 11-23-2024 Patient encounter procedure 11/23/2024 1:30 PM EDT Office Visit Radiation Oncology [address] [place] [address] Amaury Fleming MD [address] [place], [place] [id number] JEWELRY MAKER CONSULT/REFERRED BY DR ARMIJO/brain metastases* Radiation Oncology Comment on above: JEWELRY MAKER CONSULT/REFERRED BY DR ARMIJO/brain metastases* Start: 11-22-2024 End: 11-22-2024 Patient encounter procedure 11/22/2024 8:30 AM EDT Office Visit Radiation Oncology [address] [place] [address] Enoch Paul MD [address] [place] [address] Follow Up Radiation Oncology Comment on above: Follow Up Start: 11-15-2024 End: 11-15-2024 ambulatory 11/15/2024 10:15 AM EDT [facility] Center Hematology/Oncology [address] [place] [address] Nick HARRY Hematology/Oncology Comment on above: Nick HARRY Start: 11-15-2024 End: 11-15-2024 Follow-up encounter 11/15/2024 9:30 AM EDT Visit (SP) Office Hematology/Oncology [address] [place] [address] Johana Sagastume MD [address] [place] [address] Follow uP Hematology/Oncology Comment on above: Follow uP Start: 11-15-2024 End: 11-15-2024 ambulatory 11/15/2024 8:40 AM EDT Infusion Center Hematology/Oncology [address] [place] [address] DRAW LABS Hematology/Oncology Comment on above: DRAW LABS Start: 11-08-2024 End: 11-08-2024 ambulatory 11/08/2024 12:15 PM EDT Infusion Center Hematology/Oncology [address] [place] [address] Nick HARRY Hematology/Oncology Comment on above: Nick HARRY Start: 11-08-2024 End: 11-08-2024 Follow-up encounter 11/08/2024 11:00 AM EDT Visit (SP) Office Hematology/Oncology [address] [place] [address] Johana Sagastume MD [address] [place] [address] Follow uP Hematology/Oncology Comment on above: Follow uP Start: 11-08-2024 End: 11-08-2024 ambulatory 11/08/2024 9:20 AM EDT Infusion Center Hematology/Oncology [address] [place] [address] DRAW LABS Hematology/Oncology Comment on above: DRAW LABS Start: 10-23-2024 End: 10-23-2024 ambulatory 10/23/2024 2:45 PM EDT Infusion Center Hematology/Oncology [address] [place] [address] Nick HARRY Hematology/Oncology Comment on above: Nick HARRY Start: 10-23-2024 End: 10-23-2024 Follow-up encounter 10/23/2024 1:30 PM EDT Visit (SP) Office Hematology/Oncology [address] [place] [address] Pat Hinds, FINE ARTS CHAIR.DEMAND GENERATOR MANAGER [address] [place] [address] Follow up Hematology/Oncology Comment on above: Follow up Start: 10-23-2024 End: 10-23-2024 ambulatory 10/23/2024 12:40 PM EDT Infusion Center Hematology/Oncology [address] [place] [address] DRAW LABS Hematology/Oncology Comment on above: DRAW LABS Start: 10-16-2024 End: 10-16-2024 ambulatory 10/16/2024 2:45 PM EDT Infusion Center Hematology/Oncology [id number] [place] [id number] Nick HARRY Hematology/Oncology Comment on above: Nick HARRY Start: 10-16-2024 End: 01-15-2025 QUANTITATIVE TOXICOLOGY PANEL, URINE QUANTITATIVE TOXICOLOGY PANEL, URINE Lab Routine Opioid use agreement exists Expected: 10/16/2024 (Approximate), Expires: 01/15/2025 [facility] Work Phone: Comment on above: Expected: 10/16/2024 (Approximate), Expi res: 01/15/2025 Start: 10-16-2024 End: 10-16-2024 Follow-up encounter 10/16/2024 11:30 AM EDT Visit (SP) Office Hematology/Oncology [address] [place] [address] Pat Hinds, FINE ARTS CHAIR.DEMAND GENERATOR MANAGER [address] [place] [address] Follow uP Hematology/Oncology Comment on above: Follow uP Start: 10-16-2024 End: 10-16-2024 ambulatory Hematology/Oncology Comment on above: DRAW LABS LAB- F/U & TRX Start: 10-10-2024 End: 10-10-2024 Follow-up encounter 10/10/2024 11:30 AM EDT Visit (SP) Office Palliative Medicine [id number] [place] [address] Amrit Martinez MD [address] [address] Pall med follow up per WQ Palliative Medicine Comment on above: Pall med follow up per WQ Start: 10-02-2024 End: 10-02-2024 Admission to same day surgery center 10/02/2024 10:00 AM EDT - 10/02/2024 12:00 PM EDT Surgery Admitting [address] [address] Linnette Mojica MD [address] [place] [address] BRONCHOSCOPY FLEXIBLE ADULT Admitting Comment on above: BRONCHOSCOPY FLEXIBLE ADULT Start: 10-02-2024 End: 10-02-2024 [facility] incl fluor gdnce dx w/cell washg spx BRONCHOSCOPY FLEXIBLE ADULT Bronchiolar disease 10/02/2024 10:00 AM EDT PULM LAB H23 Start: 10-02-2024 Subsequent hospital visit by physician 10/02/2024 10:00 AM EDT Hospital Encounter Admitting [address] [address] Linnette Mojica MD [address] [place] [address] Bronchiolar disease [J98.09] Admitting Comment on above: Bronchiolar disease [J98.09] Start: 10-02-2024 End: 10-02-2024 Patient encounter procedure 10/02/2024 7:15 AM EDT Office Visit Cardiology [address] [place] [address] Pre Op Testing Cardiology Comment on above: Pre Op Testing Start: 09-28-2024 End: 09-28-2024 Patient encounter procedure 09/28/2024 1:00 PM EDT [facility] Pulmonary Medicine [address] [place] [address] Conchita Mcdaniel MD [address] [place] [address] New Consultation Pulmonary Medicine Comment on above: New Consultation Start: 09-26-2024 End: 09-26-2024 ambulatory 09/26/2024 12:00 PM EDT [facility] Endocrinology [address] [address] [place] [address] Bi Ho, FINE ARTS CHAIR.DEMAND GENERATOR MANAGER [address] [address] [place] [address] DIABETES Endocrinology Comment on above: DIABETES Start: 09-12-2024 End: 12-12-2024 CBC W Auto Differential panel - Blood COMPLETE BLOOD COUNT AND DIFFERENTIAL Lab Routine Squamous cell carcinoma, arm, left History of lymphoma Expected: 09/12/2024, Expires: 12/12/2024 [facility] Work Phone: Comment on above: Expected: 09/12/2024, Expires: Start: 09-12-2024 End: 12-12-2024 Comprehensive metabolic 2000 panel - Serum or Plasma COMPREHENSIVE METABOLIC PANEL Lab Routine Squamous cell carcinoma, arm, left History of lymphoma Expected: 09/12/2024, Expires: 12/12/2024 [facility] Comment on above: Expected: 09/12/2024, Expires: Start: 09-12-2024 End: 12-12-2024 Lactate dehydrogenase [Enzymatic activity/volume] in Serum or Plasma LACTATE DEHYDROGENASE Lab Routine Squamous cell carcinoma, arm, left History of lymphoma Expected: 09/12/2024, Expires: 12/12/2024 [facility] Comment on above: Expected: 09/12/2024, Expires: Start: 09-12-2024 End: 12-12-2024 Magnesium [Mass/volume] in Serum or Plasma MAGNESIUM Lab Routine Squamous cell carcinoma, arm, left History of lymphoma Expected: 09/12/2024, Expires: 12/12/2024 [facility] Comment on above: Expected: 09/12/2024, Expires: Start: 09-12-2024 End: 09-12-2024 Patient encounter procedure 09/12/2024 2:00 PM EDT Visit (SP) Office Palliative Medicine [address] [place] [address] Amrit Martinez MD [address] [place] [address] NEW CONSULT PALL MED Palliative Medicine Comment on above: NEW CONSULT PALL MED Start: 09-12-2024 End: 12-12-2024 Phosphate [Mass/volume] in Serum or Plasma PHOSPHORUS INORGANIC Lab Routine Squamous cell carcinoma, arm, left History of lymphoma Expected: 09/12/2024, Expires: 12/12/2024 [facility] Comment on above: Expected: 09/12/2024, Expires: Start: 09-12-2024 End: 12-12-2024 QUANTITATIVE TOXICOLOGY PANEL, URINE QUANTITATIVE TOXICOLOGY PANEL, URINE Lab Routine Expected: 09/12/2024, Expires: 12/12/2024 [facility] Work Phone: Comment on above: Expected: 09/12/2024, Expires: Start: 09-10-2024 End: 09-10-2024 Patient encounter procedure Molecular Imaging Comment on above: NM PET/CT WHOLE BODY INITIAL Start: 09-07-2024 End: 03-10-2025 C peptide [Mass/volume] in Serum or Plasma C-PEPTIDE BLD Lab Routine Poorly control type 2 diabetes mellitus (HCC) Expected: 09/07/2024, Expires: 03/10/2025 [facility] Work Phone: Comment on above: Expected: 09/07/2024, Expires: Start: 09-07-2024 End: 03-10-2025 Glutamate decarboxylase 65 Ab [Units/volume] in Serum GLUTAMIC AC DECARBOXYLASE AB Lab Routine Poorly control type 2 diabetes mellitus (HCC) Expected: 09/07/2024, Expires: 03/10/2025 [facility] Comment on above: Expected: 09/07/2024, Expires: Start: 09-07-2024 End: 03-10-2025 Microalbumin/Creatinine [Mass Ratio] in Urine ALBUMIN/CREATININE RATIO, URINE Lab Routine Poorly control type 2 diabetes mellitus (HCC) Expected: 09/07/2024, Expires: 03/10/2025 [facility] Comment on above: Expected: 09/07/2024, Expires: Start: 09-07-2024 End: 03-10-2025 Renal function 2000 panel - Serum or Plasma RENAL FUNCTION PANEL Lab Routine Poorly control type 2 diabetes mellitus (HCC) Expected: 09/07/2024, Expires: 03/10/2025 [facility] Comment on above: Expected: 09/07/2024, Expires: Start: 09-07-2024 End: 03-10-2025 TSH W/REFLEX FT4 TSH W/REFLEX FT4 Lab Routine Poorly control type 2 diabetes mellitus (HCC) Expected: 09/07/2024, Expires: 03/10/2025 [facility] Comment on above: Expected: 09/07/2024, Expires: Start: 09-07-2024 End: 09-07-2024 Patient encounter procedure Molecular Imaging Comment on above: NM PET/CT WHOLE BODY INITIAL Start: 09-05-2024 End: 09-05-2024 ambulatory 09/05/2024 12:45 PM EDT [facility] Endocrinology [address] [place] [address] Bi Ho, KELLE.DEMAND GENERATOR MANAGER [address] [address] [place] [address] Diabetes Endocrinology Comment on above: Diabetes Start: 09-05-2024 Patient discharge [facility] Start: 09-05-2024 Following clinical pathway protocol [facility] Start: 09-05-2024 Assessment of risk of venous thromboembolism [facility] Start: 09-05-2024 Care regimes management [facility] Start: 09-05-2024 Chart related administrative procedure [facility] Start: 09-05-2024 Fall prevention [facility] Start: 09-05-2024 Incentive spirometry [facility] Start: 09-05-2024 Inhalation therapy procedure [facility] Start: 09-05-2024 Insertion of catheter into peripheral vein [facility] Start: 09-05-2024 Introduction of urinary catheter [facility] Start: 09-05-2024 Measuring intake and output [facility] Start: 09-05-2024 Notification of physician [facility] Start: 09-05-2024 Oxygen therapy [facility] Start: 09-05-2024 Providing care according to standard [facility] Start: 09-05-2024 Provision of activity privileges [facility] Start: 09-05-2024 Referral to occupational therapist [facility] Start: 09-05-2024 Referral to service [facility] Start: 09-05-2024 Tobacco use cessation education [facility] Start: 09-05-2024 Serum inorganic phosphate measurement [facility] Start: 09-05-2024 End: 09-05-2024 Patient referral to dietitian [facility] Start: 09-04-2024 Hospital admission, emergency, from emergency room, medical nature [facility] Start: 09-04-2024 Verification routine [facility] Start: 09-04-2024 Admission procedure [facility] Start: 09-04-2024 End: 09-05-2024 [facility] Start: 09-04-2024 End: 09-04-2024 Patient encounter procedure Cat Scan Comment on above: CT ABD/PEL WO IVCON and CT Chest WO IVCO N Start: 09-03-2024 End: 09-03-2024 ambulatory 09/03/2024 3:30 PM EDT [facility] Orthopaedics [address] [address] Tiffanie Avila MD [address] [place] [address] 2 week f/u virtual Orthopaedics Comment on above: 2 week f/u virtual Start: 08-30-2024 End: 11-29-2024 CBC W Auto Differential panel - Blood COMPLETE BLOOD COUNT AND DIFFERENTIAL Lab Routine Squamous cell carcinoma, arm, left Cancer related pain Expected: 08/30/2024, Expires: 11/29/2024 [facility] Comment on above: Expected: 08/30/2024, Expires: Start: 08-30-2024 End: 11-29-2024 Comprehensive metabolic 2000 panel - Serum or Plasma COMPREHENSIVE METABOLIC PANEL Lab Routine Squamous cell carcinoma, arm, left Cancer related pain Expected: 08/30/2024, Expires: 11/29/2024 [facility] Work Phone: Comment on above: Expected: 08/30/2024, Expires: Start: 08-30-2024 End: 11-29-2024 Hemoglobin A1c in Blood HEMOGLOBIN A1C Lab Routine Squamous cell carcinoma, arm, left Cancer related pain Expected: 08/30/2024, Expires: 11/29/2024 [facility] Comment on above: Expected: 08/30/2024, Expires: Start: 08-30-2024 End: 09-29-2025 PET+CT Whole body Bone W 18F-NaF IV NM PET/CT WHOLE BODY INITIAL Radiology BRADY Cancer of skin of left forearm Expected: 08/30/2024, Expires: 09/29/2025 [facility] Work Phone: Comment on above: Expected: 08/30/2024, Expires: Start: 08-16-2024 End: 08-16-2024 Patient encounter procedure Radiology Comment on above: forearm left forearm mass Start: 06-20-2024 Advance Directive Discussion Advance Directive Discussion [facility] Start: 02-19-2024 Covid-19 Vaccine ( season) Covid-19 Vaccine ( season) [facility] Start: 2023 Screening for osteoporosis Bone Density Screening [facility] Start: 04-15-2022 Lipid panel Lipid Screening [facility] Start: 03-24-2022 Hemoglobin A1c measurement HbA1C [facility] Start: 09-13-2021 Creatinine measurement Creatinine monitoring [facility] Work Phone: Start: 09-13-2021 Potassium monitoring Potassium monitoring [facility] Work Phone: Start: 08-02-2021 Screening for malignant neoplasm of colon [facility] Start: 06-03-2021 Pneumococcal 0-64 years Vaccine (3 of 3 - PPSV23) Pneumococcal 0-64 years Vaccine (3 of 3 - PPSV23) [facility] Work Phone: Start: 06-03-2021 Pneumococcal 0-64 years Vaccine (3 of 4 - PPSV23) Pneumococcal 0-64 years Vaccine (3 of 4 - PPSV23) [facility] Work Phone: Start: 06-03-2021 Pneumococcal Vaccine: 50+ (3 of 3 - PCV20 or PCV21) Pneumococcal Vaccine: 50+ (3 of 3 - PCV20 or PCV21) [facility] Start: 06-03-2021 Pneumococcal Vaccine: 50+ (3 of 3 - PPSV23, PCV20 or PCV21) Pneumococcal Vaccine: 50+ (3 of 3 - PPSV23, PCV20 or PCV21) [facility] Start: 02-18-2021 Influenza vaccination [facility] Work Phone: Start: 12-24-2020 HbA1c (Bld) [Mass fraction] A1C test (Diabetic or Prediabetic) [facility] Work Phone: Start: 12-24-2020 Hemoglobin A1c measurement A1C test (Diabetic or Prediabetic) [facility] Work Phone: Start: 11-27-2020 HbA1c (Bld) [Mass fraction] A1C test (Diabetic or Prediabetic) [facility] Work Phone: Start: 09-24-2020 End: 09-24-2020 Office Visit 09/24/2020 Office Visit Family Medicine Jon Metcalf PA-C [address] [place] [address] [phone] [facility] Start: 09-23-2020 End: 09-23-2020 Virtual Visit 09/23/2020 Virtual Visit Infectious Diseases Bertram Mcmillan MD [address] [place] [address] [id number] [facility] [place] Start: 09-22-2020 End: 09-22-2020 Appointment 09/22/2020 Appointment Infusion [facility] Start: 09-21-2020 End: 09-21-2020 Appointment 09/21/2020 Appointment [facility] Start: 09-20-2020 End: 09-20-2020 Appointment 09/20/2020 Appointment [facility]fusion [facility] Start: 09-19-2020 End: 09-19-2020 Appointment 09/19/2020 Appointment [facility]fusion [facility] Start: 09-18-2020 End: 09-18-2020 Appointment 09/18/2020 Appointment [facility]fusion [facility] Start: 09-17-2020 End: 09-17-2020 Appointment 09/17/2020 Appointment [facility]fusion [facility] Start: 09-16-2020 End: 09-16-2020 Appointment 09/16/2020 Appointment [facility]fusion [facility] Start: 09-15-2020 End: 09-15-2020 Appointment [facility] Start: 09-14-2020 End: 09-14-2020 Appointment 09/14/2020 Appointment [facility]fusion [facility] Start: 09-13-2020 End: 09-13-2020 Appointment 09/13/2020 Appointment [facility]fusion [facility] Start: 09-12-2020 End: 09-12-2020 Appointment 09/12/2020 Appointment [facility]fusion [facility] Start: 09-11-2020 End: 09-11-2020 Appointment 09/11/2020 Appointment [facility]fusion [facility] Start: 09-10-2020 End: 09-10-2020 Appointment 09/10/2020 Appointment [facility]fusion [facility] Start: 09-09-2020 End: 09-09-2020 Appointment 09/09/2020 Appointment [facility]fusion [facility] Start: 09-08-2020 End: 09-08-2020 Appointment 09/08/2020 Appointment [facility]fusion [facility] Start: 09-07-2020 End: 09-07-2020 Appointment 09/07/2020 Appointment [facility]fusion [facility] Start: 09-06-2020 End: 09-06-2020 Appointment 09/06/2020 Appointment [facility]fusion [facility] Start: 09-05-2020 End: 09-05-2020 Appointment 09/05/2020 Appointment [facility]fusion [facility] Start: 09-04-2020 End: 09-04-2020 Appointment 09/04/2020 Appointment [facility]fusion [facility] Start: 09-03-2020 End: 09-03-2020 Appointment 09/03/2020 Appointment [facility]fusion [facility] Start: 09-02-2020 End: 09-02-2020 Appointment 09/02/2020 Appointment [facility]fusion [facility] Start: 09-01-2020 End: 09-01-2020 Appointment 09/01/2020 Appointment [facility]fusion [facility] Start: 08-31-2020 End: 08-31-2020 Appointment 08/31/2020 Appointment [facility]fusion [facility] Start: 08-30-2020 Hospital Encounter 08/30/2020 Hospital Encounter [facility]fusion [facility] Start: 02-19-2020 Influenza vaccination Flu vaccine (#1) [facility] Work Phone: Start: 09-26-2018 Screening for malignant neoplasm of breast Mammogram Screening [facility] Start: 07-07-2018 Hepatitis B screening Urine Albumin:Creatinine Ratio [facility] Start: 04-21-2018 Diabetic foot examination Diabetic Foot Exam [facility] Start: 04-15-2018 Hepatitis B surface antibody level LDL Cholesterol [facility] Start: 2018 RSV Vaccine (1 - Risk 60-74 years 1-dose series) RSV Vaccine (1 - Risk 60-74 years 1-dose series) [facility] Start: 01-14-2008 Screening for malignant neoplasm of breast Breast cancer screen [facility] Work Phone: Start: 01-14-2008 Screening for malignant neoplasm of colon Colon cancer screen colonoscopy [facility] Work Phone: Start: 01-14-2008 Shingles Vaccine (1 of 2) Shingles Vaccine (1 of 2) [facility] Work Phone: Start: 01-14-2008 Shingrix Vaccine (1 of 2) Shingrix Vaccine (1 of 2) [facility] Start: 2003 Screening for malignant neoplasm of colon [facility] Start: 01-14-1988 Zoledronic acid therapy Alpha-1 Antitrypsin Deficiency Screening [facility] Start: 1979 Screening for malignant neoplasm of cervix Cervical cancer screen [facility] Work Phone: Start: 1977 DTaP/Tdap/Td vaccine (1 - Tdap) DTaP/Tdap/Td vaccine (1 - Tdap) [facility] Work Phone: Start: 1977 Shingrix Vaccine (1 of 2) Shingrix Vaccine (1 of 2) [facility] Start: 1977 Urine microalbumin profile DTaP,Tdap,Td Vaccine (1 - Tdap) [facility] Start: 01-14-1976 Annual PCP Team Chronic Disease Visit Annual PCP Team Chronic Disease Visit [facility] Start: 01-14-1976 Anxiety Screening Anxiety Screening [facility] Start: 01-14-1976 BP Controlled (<130/80) BP Controlled (<130/80) [facility] Start: 01-14-1976 Depression Screening Depression Screening [facility] Start: 01-14-1976 Diabetic microalbuminuria test Diabetic microalbuminuria test [facility] Work Phone: Start: 01-14-1976 Spirometry Spirometry [facility] Start: 1974 COVID-19 Vaccine (1) COVID-19 Vaccine (1) [facility] Work Phone: Start: 1973 HIV screening HIV screen [facility] Work Phone: Start: 1970 COVID-19 Vaccine (1) COVID-19 Vaccine (1) [facility] Work Phone: Start: 1969 Screening for malignant neoplasm of cervix Cervical Cancer Screening [facility] Start: 01-14-1968 Diabetic foot examination Diabetic foot exam [facility] Work Phone: Start: 01-14-1968 Diabetic retinal exam Diabetic retinal exam [facility] Work Phone: Start: 01-14-1968 Glaucoma screening Dilated Retinal Exam [facility] Start: 01-14-1968 Lipid panel Lipid screen [facility] Work Phone: Start: 1963 Covid-19 Vaccine (#1) Covid-19 Vaccine (#1) [facility] Start: 1958 Hepatitis C screening Hepatitis C screen [facility] Work Phone: Amphetamines [Presen ce] in Urine by Screen method >1000 ng/mL [facility] Benzodiazepine measurement, urine [facility] End: 08-27-2020 CBC auto differential CBC auto differential Lab Routine Tomorrow AM for 1 Occurrences starting 08/27/2020 until 08/27/2020 [facility] Work Phone: Comment on above: Tomorrow AM for 1 Occurrences starting 0 08/27/2020 until 08/27/2020 CBC auto differential CBC auto d ifferential Lab Routine 08/27/2020 12:07 AM EST [facility] Work Phone: Cocaine measurement, urine [facility] End: 09-15-2025 CT Abdomen and Pelvis WO contrast CT ABD/PEL WO IVCON Radiology Routine Mass of left upper extremity 1 Occurrences starting 08/16/2024 until 09/15/2025 [facility] [facility] Comment on above: 1 Occurrences starting 08/16/2024 until 09/15/2025 End: 09-15-2025 CT Chest WO contrast CT CHEST WO IVCON Radiology Routine Mass of left upper extremity 1 Occurrences starting 08/16/2024 until 09/15/2025 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 Work Phone: Comment on above: 1 Occurrences starting 09/17/2024 until 09/17/2025 EKG 12 Lead EKG 12 Lead ECG Routine 08/29/2020 1:28 PM EST [employer] Work Phone: [email or web address] [Presence] in Urine by Screen method [facility] Magn[facility] Methadone measuremen t, urine [facility] Microscopic examinat ion of blood, culture [facility] Work Phone: Patient referral [facility] Work Phone: Phencyclidine [Prese nce] in Urine [facility] POCT glucose [facility] Work Phone: Comment on above: 4X Daily (AC & HS) until discontinued st arting 08/27/2020 As Needed until disc ontinued starting 08/26/2020 End: 09-13-2020 POCT GLUCOSE POCT GLUCOSE Point of Care Testing Routine One Time for 1 Occurrences starting 09/13/2020 until 09/13/2020 [facility] Work Phone: Comment on above: One Time for 1 Occurrences starting 08/19 until 09/13/2020 Serum inorganic phosphate measurement [facility] Tissue Pathology bio psy report SURGICAL PATHOLOGY Lab Routine Mass of left upper extremity 08/16/2024 12:29 PM EST [facility] Urine cannabinoid measurement [facility] Urine opiate measurement [facility] End: 08-29-2020 XR CHEST PORTABLE XR CHEST PORTABLE Imaging STAT Once for 1 Occurrences starting 08/29/2020 until 08/29/2020 [facility] Work Phone: Comment on above: Once for 1 Occurrences starting 08/30/19 until 08/29/2020 End: 09-08-2025 XR Radius and Ulna - left AP and Lateral XR FOREARM GENERAL 2V AP/LAT LEFT Radiology Routine Localized superficial swelling, mass, or lump 1 Occurrences starting 08/09/2024 until 09/08/2025 [facility] Comment on above: 1 Occurrences starting 08/09/2024 until 09/08/2025 End: 09-08-2025 XR Wrist - left PA and Lateral and Oblique XR WRIST GENERAL 3V PA/LAT/OBL LEFT Radiology Routine Localized superficial swelling, mass, or lump 1 Occurrences starting 08/09/2024 until 09/08/2025 [facility] Work Phone: Comment on above: 1 Occurrences starting 08/09/2024 until 09/08/2025 Immunizations Immunization Date Immunization Notes Care Provider Milla rider 06-03-2016 pneumococcal polysaccharide vaccine, 23 valent Tiffanie Avila MD Work Phone: [facility] 03-20-2016 influenza, seasonal, injectable Tiffanie Avila MD Work Phone: [facility] 05-01-2015 pneumococcal conjuga te vaccine, 13 megan Avila MD Work Phone: [facility] Work Phone: Payers Date Payer Category Payer Medicare (Managed Care) [employer] [id number] 2024 Private Health Insurance [id number] 2024 Self-pay [id number] 2024 Unknown [id number] 2024 Medicaid [id number] 2023 Private Health Insurance [id number] 2023 Medicaid [id number] 2023 Private Health Insurance [id number] 2023 Unknown [id number] 2022 Medicaid [id number] 2016 Medicaid [id number] 1960 Unknown [id number] 1960 Unknown [id number] 1958 Unknown [id number] 1960 Unknown [id number] Medicare MEDICARE PART A B [id number] Unknown [facility] [id number] Unknown [id number] 462 Unknown [id number] 462 Unknown [id number] 462 Unknown [id number] 462 Unknown [id number] 462 Unknown [id number] 462 Social History Date Type Detail Facility Assertion Unknown if ever smoked [facility] Work Phone: Start: 03-06-2014 End: 08-26-2020 Tobacco smoking status ILIS Current every day smoker [employer] Phone: Start: 06-20-1980 History of tobacco use Cigarette Smo ker [employer] Phone: Start: 08-26-2020 End: 08-16-2024 Cigarettes smoked current (pack per day) - Reported [facility] Start: 03-06-2014 End: 08-26-2020 Tobacco use and exposure Never used [employer] Phone: Start: 08-26-2020 End: 09-12-2024 Alcohol intake Current non-drinker of alcohol (finding) [employer] Phone: Start: 1960 Sex Assigned At Not on file [facility] Work Phone: Exposure to SARS-CoV -2 (event) Not sure [facility] Work Phone: Start: 09-24-2020 History SDOH Physica l Activity DPW 3 [facility] Work Phone: Start: 09-24-2020 History SDOH Stress 4 [facility] Work Phone: Start: 09-24-2020 History SDOH Food Worry 1 [facility] Work Phone: Start: 09-24-2020 History SDOH Transpo rt Med 2 [facility] Work Phone: Start: 07-11-2018 End: 09-05-2024 Tobacco smoking status Light tobacco smoker (finding) [facility] Start: 1960 Sex Assigned At Female A [facility] Start: 08-13-2021 Tobacco smoking stat us ILIS Unknown if ever smoked [facility] Start: 08-13-2021 None [facility] Start: 08-13-2021 Homeless [facility] Start: 08-13-2021 Cigarettes [facility] Sexual Orientation [facility] Start: 07-13-2018 End: 09-05-2024 Sex Female (finding) [facility] Start: 05-22-2022 End: 08-16-2024 Tobacco use panel [facility] Adult Depression Screening Assessment 0 [facility] Medical Equipment Procedure Code Equipment Code Equipment Origin al Text Equipment Identifier Dates Insertion, vascular access port PORT,6FR POWER PORT FDA Start: 12-08-2018 Insertion, vascular access port PORT,6FR POWER PORT FDA Start: 12-08-2018 Insertion, vascular access port PORT,6FR POWER PORT FDA Start: 12-08-2018 Dispense suffici ent amount for indicated testing frequency plus additional to accommodate PRN testing needs. Dispense all needed supplies to include: monitor, strips, lancing device, lancets, control solutions, alcohol swabs. [id number] Start: 09-24-2020 Use as directed 3x/day. Type: [id number] Start: 09-25-2020 Use three times a day and as needed [id number] Start: 09-25-2020 Test blood sugar (s) 3 times daily. Dx: Type 2 DM - Uncontrolled E11.65 Insulin: Yes [id number] Start: 04-21-2017 End: 09-07-2024 Use one needle f or each dose. 3/day. Type 2 DM insulin dependant. [id number] Start: 09-26-2017 End: 09-07-2024 Test blood sugar (s) 3 times daily. Dx: Type 2 DM - Uncontrolled E11.65 Insulin: Yes [id number] Start: 04-21-2017 End: 09-07-2024 Test blood sugar (s) 3 times daily. Dx: Type 2 DM - Uncontrolled E11.65 Insulin: Yes [id number] Start: 09-07-2024 End: 10-04-2024 Use one needle f or each dose. 2/day. Type 2 DM insulin dependant. [id number] Start: 09-07-2024 Test blood sugar (s) 3 times daily. Dx: Type 2 DM - Uncontrolled E11.65 Insulin: Yes [id number] Start: 09-07-2024 End: 10-04-2024 Pen Needle, Diab etic 31 gauge x 1/3 needle Start: 09-05-2024 Use with blood glucose test three times a day. Insulin Dep? Yes [id number] Start: 10-04-2024 Use with blood glucose test three times a day. Insulin Dep? Yes. True Metrix meter. [id number] Start: 10-04-2024 Use to administe r insulin as prescribed. [id number] Start: 11-19-2024 TEST BLOOD SUGAR S 3 TIMES DAILY [id number] Start: 11-19-2024 End: 11-19-2024 Use with blood glucose test three times a day. Insulin Dep? Yes [id number] Start: 11-19-2024 End: 11-19-2024 Use with blood glucose test three times a day. Insulin Dep? Yes [id number] Start: 11-19-2024 Use with blood glucose test three times a day. Insulin Dep? Yes [id number] Start: 11-19-2024 Goals Date Patient Goal Desired Activity /State Functional Status Date Assessment Result Facility 06-02-2025 Are you deaf, or do you have serious difficulty hearing Yes 11/19/2024 4:47 PM EDT Marya Araya, RN Yes [facility] 11-19-2024 Are you blind, or do you have serious difficulty seeing, even when wearing glasses No 11/19/2024 4:47 PM EDT Marya Araya, RN No [facility] 11-19-2024 Do you have serious difficulty walking or climbing stairs Yes 11/19/2024 4:47 PM EDT Marya Araya, RN Yes [facility] 11-19-2024 Do you have difficul ty dressing or bathing Yes 11/19/2024 4:47 PM EDT Marya Araya, RN Yes [facility] 09-05-2024 Functional status Ambulates [facility] Work Phone: 07-14-2024 Functional Status ID band on, Call device within reach, Bed in low position, Wheels locked, Upper/Half-Length side-rails up, personal items within reach, Safety level maintained [facility] 04-30-[address] [facility] 07-12-2022 Functional Status Room check performed [facility] 04-26-2022 Functional Status Activity Ezekiel freedman Independent [facility] 04-25-2022 Functional Status Standard Safet y ID band on, Allergy Band on, Call device within reach, Bed in low position, Wheels locked, Upper/Half-Length side-rails up, Phone within reach, Bedside Cart Locked [facility] 03-06-2014 Are you deaf, or do you have serious difficulty hearing No 03/06/2014 5:03 PM EDT Raquel Parmar LPN No [facility] 03-06-2014 Are you blind, or do you have serious difficulty seeing, even when wearing glasses No 03/06/2014 5:03 PM EDT Raquel Parmar LPN No [facility] 03-06-2014 Do you have serious difficulty walking or climbing stairs No 03/06/2014 5:03 PM EDT Raquel Parmar LPN No [facility] 03-06-2014 Do you have difficul ty dressing or bathing No 03/06/2014 5:03 PM EDT Raquel Parmar LPN No [facility] 03-06-2014 Because of a physica l, mental, or emotional condition, do you have difficulty doing errands alone such as visiting a physician's office or shopping No 03/06/2014 5:03 PM EDT Raquel Parmar LPN No [facility] NEGATED: Highlighted row Functional performance Functional status health issues are not documented Disease [facility] Work Phone: Mental Status Date Assessment Result Facility 11-19-2024 Because of a physical, mental, or emotional condition, do you have serious difficulty concentrating, remembering, or making decisions Yes 11/19/2024 4:47 PM EDT Marya Araya RN Yes [facility] 09-05-2024 Cognitive function Voice/Name [facility] Work Phone: 09-04-2024 Cognitive function Level Of Cons ciousness Awake;Alert;Appropriate [facility] Work Phone: 07-14-2024 Mental Status Oriented x 4 [facility] 04-30-2024 Mental Status Oriented x 4 [facility] 07-12-2022 Mental Status Oriented x 4 [facility] 04-26-2022 Mental Status Orientation Orie nted x 4 [facility] 04-25-2022 [facility]2014 Because of a physical, mental, or emotional condition, do you have serious difficulty concentrating, remembering, or making decisions No 03/06/2014 5:03 PM EDT Raquel Parmar LPN No [facility] NEGATED: Highlighted row Cognitive function [Interpretation] Cognitive status health issues are not documented Disease QO-Cyesssyjwltevv-E [facility] Work Phone: Clinical Notes 04-25-2022 to 11-22-2024 Telephone Encounter - Angie Zhang - 11/22/2024 10:25 AM EDTTelephone Encounter - Angie Zhang - 11/22/2024 10:25 AM EDTTelephone Encounter - Dionne Mckee RN - 11/21/2024 1:54 PM EDT Note Date & Type Note Facility 11-22-2024 Telephone encounter Note THIS HAS BEEN SCHEDULED DIRECTED. Angie Zhang [facility] 11-22-2024 Miscellaneous Notes THIS HAS BEEN SCHEDULED DIRECTED. Angie Zhang documented in this encounter [facility] 11-21-2024 Telephone encounter Note Returned call and Introduced self by name and title. Informed patient that her discharge appt. With Dr. Correa will be cancelled and he will see her in the infusion area when her chemo is scheduled for approximately December 07. Patient thanked us for the call. Dionne Mckee RN Specialty [facility] 11-21-2024 Miscellaneous Notes Returned call and Introduced self by name and title. Informed patient that her discharge appt. With Dr. Correa will be cancelled and he will see her in the infusion area when her chemo is scheduled for approximately December 07. Patient thanked us for the call. Dionne Mckee RN Specialty [facility] Doreen Denise('s) caregiver: Azeb from [facility] is calling Sanjay Correa MD today regarding Car [facility] - Other (Follow up) Azeb called in requesting information on whether Dr. Correa is supposed to be seeing patient during treatment today 11/19/24. States patient's daughter says that's what they were told. Would like a call back at [phone] to clarify. Patient has been identified by name and birthdate. Requesting response back: [phone] (home) [phone] (cell) Kezia Owens November 19, 2024 documented in this encounter [facility] 11-20-2024 Telephone encounter Note Reached out to patient's daughter Anna and spoke about process for radiation and what appointment for was for. She verbalized frustration when mom admitted and frustration with lack of communication as we she was under the impression that her mom would be getting simulation for radiation on and start on for 5 treatments. Patient's daughter appreciated phone all and they will be here on . Daughter ask about who she could call regarding frustration, ombudsman number verified with her. Brenna Wood RN [facility] Work Phone: 11-20-2024 Miscellaneous Notes Reached out to patient's daughter Anna and spoke about process for radiation and what appointment for was for. She verbalized frustration when mom admitted and frustration with lack of communication as we she was under the impression that her mom would be getting simulation for radiation on and start on for 5 treatments. Patient's daughter appreciated phone all and they will be here on . Daughter ask about who she could call regarding frustration, ombudsman number verified with her. Brenna Wood RN Patient's daughter was under the impression that the patient would start radiation on . Explained to daughter that the 11/22 appointment was a follow up/treatment planning appointment. Daughter would like to speak with someone for clarification on the radiation schedule. Anna [phone] documented in this encounter [facility] 11-20-2024 Telephone encounter Note Patient's daughter was under the impression that the patient would start radiation on . Explained to daughter that the 11/22 appointment was a follow up/treatment planning appointment. Daughter would like to speak with someone for clarification on the radiation schedule. Anna [phone] [facility] 11-19-2024 Note [facility] 11-19-2024 Telephone encounter Note Doreen Denise('s) caregiver: Azeb from [facility] is calling Sanjay Correa MD today regarding Car [facility] - Other (Follow up) Azeb called in requesting information on whether Dr. Correa is supposed to be seeing patient during treatment today 11/19/24. States patient's daughter says that's what they were told. Would like a call back at [phone] to clarify. Patient has been identified by name and birthdate. Requesting response back: [phone] (home) [phone] (cell) Kezia Owens November 19, 2024 [facility] 11-18-2024 Note [facility] 11-17-2024 Note [facility] 11-16-2024 Note [facility] 11-16-2024 Note [facility] 11-16-2024 Note [facility] 11-16-2024 Note [facility] 11-16-2024 Note [facility] 11-15-2024 History of Present illness Narrative [facility] received prescription(s) for Nivestym from Dr. Dominguez's office. Benefits investigation was conducted, indicating that a prior authorization is required by patient's insurance plan with [employer]. Encounter will be updated once prior authorization has been submitted by [facility]. Kate BurnettPneudraulic Systems Mechanic Oncology/Hematology [facility] Office: documented in this encounter [facility] 11-15-2024 Note [facility] 11-15-2024 Note [facility] 11-15-2024 Note [facility] 11-15-2024 Note [facility] 11-14-2024 Note HNO ID: [id number] Author: ARELI PARK RN Service: Nursing Author Type: Registered Nurse Type: Nursing Progress Note Filed: 11/14/2024 18:29 Note Text: Report given to floor RN. VSS. [facility] 11-14-2024 Note [facility] 11-14-2024 Note [facility] 11-13-2024 Note [facility] 11-12-2024 Note [facility] 11-12-2024 Note HNO ID: [id number] Author: ANUEL ASTORGA MD Service: Hospital Medicine Author Type: Physician Type: Progress Notes Filed: 11/14/2024 19:47 Note Text: Documentation Query Please provide a diagnosis associated with the clinical indicators Vasogenic edema This document will become part of the patient's medical record. [facility] 11-12-2024 Note HNO ID: [id number] Author: ANUEL ASTORGA MD Service: Hospital Medicine Author Type: Physician Type: Progress Notes Filed: 11/14/2024 19:57 Note Text: Documentation Query Please clarify sepsis diagnosis Sepsis Ruled In present on admission This document will become part of the patient's medical record. [facility] 11-11-2024 Note HNO ID: [id number] Author: ELÍAS NATARAJAN MD Service: General Internal Medicine Author Type: Physician Type: Progress Notes Filed: 11/11/2024 14:04 Note Text: DEPARTMENT OF HOSPITAL MEDICINE PROGRESS NOTE SERVICE DATE: 11/11/2024 SERVICE TIME: 1:47 PM Hospital Medicine/Primary Attending: Elías Natarajan MD PRIMARY CARE PHYSICIAN: No primary care provider on file. 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 She denies any fever, chills or night sweats. She does have pain on the right side where she fell for 5 days ago with some shortness of breath but no sputum production. During the ER evaluation she is afebrile, tachycardic with heart rate of 102 bpm and borderline hypoxic with an O2 sat 91% on room air. She had 2 L of oxygen placed which improved her O2 sat to 96%. Labs show an elevated white blood cell count of 13,000, lactate of 2.2. Urinalysis does not appear infected. Troponin normal X2 values, proBNP only slightly elevated to 446. Sodium low at 127. Glucose elevated 316. Due to her recent fall CT of the brain and cervical spine were obtained. Cervical spine CT did not show any acute traumatic subluxation. She does have a nonspecific 5 mm lucent lesion in the C4 vertebral body that was not present 12/22/2018. Lytic metastases is in the differential. Thyroid nodules with recommendation for thyroid ultrasound. CT of the brain showing multiple small intra-axial parenchymal lesions in both cerebral hemispheres with surrounding edema. Local mass effect does not result in midline shift or herniation. A few lesions are in the peripheral rim of the relative hyperdensity densities/isointensity to little matter which can be seen with hypercellular neoplasm, blood products or calcification. Scattered hypodensities in the supratentorial white matter are nonspecific but are most compatible with chronic microvascular ischemic changes. Vascular calcifications in the carotid siphons. Chronic left orbital floor fracture. Chest x-ray with enlarged right hilum. Hazy opacity overlying the right lower lung recommended CT for further evaluation. CT of the chest does not show any pulmonary emboli. She does have acute right anterior 4th, 5th and 6th rib fractures. A persistent large right lower lobe mass extending to the hilum with adjacent postobstructive consolidation of the right lower lobe with increasing mediastinal lymphadenopathy. While in the ER she received 2 L of IV fluids, morphine 4 mg IV X2 doses, Zofran 4 mg IV. She had a DuoNeb and was empirically started on Rocephin and azithromycin however with abnormal CT scan findings broadening of antibiotic coverage for possible empyema was considered and she received vancomycin and Zosyn. MRSA nares screen was obtained and negative for MRSA so vancomycin was discontinued. The ER physician conferred with the on-call neurosurgeon, Dr. Dickson. It was suggested that she be transferred to [facility] in case they have options available for the brain mets that she would not have here. Family and patient are agreeable to this so ER physician may contact with [facility] and was able to speak with on-call fellow from oncology who was agreeable to having the patient transferred there for evaluation of additional treatments. Dr. Rodney hospitalist accepted the transfer however no beds are available at this time so she will be admitted to our hospital in the interim. Patient is admitted for metastatic squamous cell carcinoma to the brain, pneumonia versus malignant neoplasm of the right lower lung causing postobstructive infection and rib fracture for pain control. 11/10/24 - Patient stable, refusing to wear pulse oxy meter and scds, pain is controlled with medications at times she has break through episodes 11/11/24 - patient continues to refuse pulse oxy meter and scds, O2 sats stable, she has severe break through pain and daughter wants her to be on sustain pain relief so is agreeable to be started on oxycodone ER. Patient used oxydocone at home and it worked well previously. Sign Off/Overnight Events: stable, no worsening sob or cough, waiting for transfer to [facility] for brain mets ROS: Review of other systems is negative or as below Constitutional: Fever/Chill/Pain: Pain in between from fractures on ribs not well controlled Head and Neck : No vision changes, headache or neck pain Cardiopulmonary : No chest pain , shortness of breath, cough, palpitations, dizziness GI/ - No nausea, vomiting, diarrhea, constipation, urinary symptoms Neurological: No new weakness or sensory loss, no dizziness Extremities/Skin: No joint pain or swelling, No rashes Current Facility-Administered Medi (more content not included)... [facility] 11-10-2024 Note HNO ID: [id number] Author: CORKY BENTLEY RN Service: Nursing Author Type: Registered Nurse Type: Progress Notes Filed: 11/10/2024 15:46 Note Text: Report given from off-going nurse, care assumed for this pt at this time. [facility] 11-10-2024 Note HNO ID: [id number] Author: ELÍAS NATARAJAN MD Service: General Internal Medicine Author Type: Physician Type: Progress Notes Filed: 11/10/2024 14:34 Note Text: DEPARTMENT OF HOSPITAL MEDICINE PROGRESS NOTE SERVICE DATE: 11/10/2024 SERVICE TIME: 2:24 PM Hospital Medicine/Primary Attending: Elías Natarajan MD PRIMARY CARE PHYSICIAN: No primary care provider on file. 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 She denies any fever, chills or night sweats. She does have pain on the right side where she fell for 5 days ago with some shortness of breath but no sputum production. During the ER evaluation she is afebrile, tachycardic with heart rate of 102 bpm and borderline hypoxic with an O2 sat 91% on room air. She had 2 L of oxygen placed which improved her O2 sat to 96%. Labs show an elevated white blood cell count of 13,000, lactate of 2.2. Urinalysis does not appear infected. Troponin normal X2 values, proBNP only slightly elevated to 446. Sodium low at 127. Glucose elevated 316. Due to her recent fall CT of the brain and cervical spine were obtained. Cervical spine CT did not show any acute traumatic subluxation. She does have a nonspecific 5 mm lucent lesion in the C4 vertebral body that wasnot present 12/22/2018. Lytic metastases is in the differential. Thyroid nodules with recommendation for thyroid ultrasound. CT of the brain showing multiple small intra-axial parenchymal lesions in both cerebral hemispheres with surrounding edema. Local mass effect does not result in midline shift or herniation. A few lesions are in the peripheral rim of the relative hyperdensity densities/isointensity to little matter which can be seen with hypercellular neoplasm, blood products or calcification. Scattered hypodensities in the supratentorial white matter are nonspecific but are most compatible with chronic microvascular ischemic changes. Vascular calcifications in the carotid siphons. Chronic left orbital floor fracture. Chest x-ray with enlarged right hilum. Hazy opacity overlying the right lower lung recommended CT for further evaluation. CT of the chest does not show any pulmonary emboli. She does have acute right anterior 4th, 5th and 6th rib fractures. A persistent large right lower lobe mass extending to the hilum with adjacent postobstructiveconsolidation of the right lower lobe with increasing mediastinallymphadenopathy. While in the ER she received 2 L of IV fluids, morphine 4 mg IV X2 doses, Zofran 4 mg IV. She had a DuoNeb and was empirically started on Rocephin and azithromycin however with abnormal CT scan findings broadening of antibiotic coverage for possible empyema was considered and she received vancomycin and Zosyn. MRSA nares screen was obtained and negative for MRSA so vancomycin was discontinued. The ER physician conferred with the on-call neurosurgeon, Dr. Dickson. It was suggested that she be transferred to [facility] in case they have options available for the brain mets that she would not have here. Family and patient are agreeable to this so ER physician may contact with [facility] and was able to speak with on-call fellow from oncology who was agreeable to having the patient transferred there for evaluation of additional treatments. Dr. Rodney hospitalist accepted the transfer however no beds are available at this time so she will be admitted to our hospital in the interim. 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 Sign Off/Overnight Events: stable, currently complaining of mild sob and cough, waiting for transfer to [facility] for brain mets ROS: Review of other systems is negative or as below Constitutional: Fever/Chill/Pain: None Head and Neck : No vision changes, headache or neck pain Cardiopulmonary : No chest pain , shortness of breath, cough, palpitations, dizziness GI/ - No nausea, vomiting, diarrhea, constipation, urinary symptoms Neurological: No new weakness or sensory loss, no dizziness Extremities/Skin: No joint pain or swelling, No rashes Current Facility-Administered Medications Medication Dose Route Frequency iv contrast (radiology procedure) INTRAVENOUS DIRECTED PRN azithromycin 500 mg in D5W 250 mL Vial-Bag (ZITHROMAX) 500 mg INTRAVENOUS q 24 HR NaCl 0.9% iv flush bag 20 mL INTRAVENOUS PRN iv contrast (radiology procedure) INTRAVENOUS DIRECTED PRN aluminum-magnesium hydroxide-simethicone 200-200-20 mg/5 mL 30 mL 30 mL ORAL DAILY PRN ondansetron 4 (more content not included)... [facility] 11-04-2024 Telephone encounter Note Images from the original note were not included. [facility] Department of Hematology and Oncology After Hours Documentation November 04, 2024 , 12:49 AM Heme/onc Diagnosis: cSCC left forearm with lung metastasis Primary Epic Ambulatory Specialists/Oncologist: Dr. Sagastume Ms. eDnise's daughter called me regarding concerns of her mother being confused for the last couple of hours. She states that her mother is not behaving like her normal self. Per daughter the patient has been calling her family members on the phone multiple times today and saying things that are not making sense. Her twin sister went home to meet her mother and found her dancing in her home and saying things intermittently that did not make sense. Denies any evidence of visual or auditory hallucinations. At baseline patient Ms. Denise is completely alert and oriented x 3. No reports of any fever/falls/seizure. She is on immunotherapy and last treatment was on 10/23/24. Due to new changes in mentation I recommended that they her to the ED for further evaluation. There can be many reasons for the confusion, like infection, intracranial pathology, medication side effect etc. Ms. Denise's daughter voiced understanding and agreed to take her to the hospital. Celeste Merlos MD Hematology and Oncology Fellow On-call pager: [phone] [facility] Work Phone: 11-04-2024 Miscellaneous Notes Images from the original note were not included. [facility] Department of Hematology and Oncology After Hours Documentation November 04, 2024 , 12:49 AM Heme/onc Diagnosis: cSCC left forearm with lung metastasis Primary Epic Ambulatory Specialists/Oncologist: Dr. Sagastume Ms. Denise's daughter called me regarding concerns of her mother being confused for the last couple of hours. She states that her mother is not behaving like her normal self. Per daughter the patient has been calling her family members on the phone multiple times today and saying things that are not making sense. Her twin sister went home to meet her mother and found her dancing in her home and saying things intermittently that did not make sense. Denies any evidence of visual or auditory hallucinations. At baseline patient Ms. Denise is completely alert and oriented x 3. No reports of any fever/falls/seizure. She is on immunotherapy and last treatment was on 10/23/24. Due to new changes in mentation I recommended that they her to the ED for further evaluation. There can be many reasons for the confusion, like infection, intracranial pathology, medication side effect etc. Ms. Denise's daughter voiced understanding and agreed to take her to the hospital. Celeste Merlos MD Hematology and Oncology Fellow On-call pager: [phone] documented in this encounter [facility] 10-26-2024 Note [facility] 10-26-2024 History of Present illness Narrative Images from the original note were not included. [facility] [place] [facility] On[facility] Follow Up Note Patient name: Doreen Denise [facility] number: [id number] Primary Care Physician: No primary care provider on file. Date of service: October 23, 2024 DIagnosis: cSCC left forearm with lung metastasis History of Present Illness: Ms. Denise is a 64 year old lady who is referred to Medical Oncology for an opinion regarding her cutaneous SCC of the arm. ONCOLOGIC HISTORY: 1. Late 2023 - first noticed left forearm wound, unrelated to injury or known trauma. Grew over past few months. 2. 07/29/2024 - imaging demonstrated 3 cm dorsal forearm mass, no evidence of bone invasion 3. 08/16/2024 - s/p bx of skin left forearm: SCC, invasive and well diff Since last visit, she has undergone bronch, which confirmed lung metastasis. She has discomfort on the left forearm and is anxious to begin therapy. Patient's daughter asking about treatment closer to home. Missed appt last week due to transportation issues. Accompanied by daughter today. Review Of Systems: All systems reviewed with pertinent positives and negatives as outlined in the HPI. Allergies: ALLERGIES Allergen Reactions Codeine Rash Vicodin [Hydrocodon* Rash Current Medications: Current Outpatient Medications on File Prior to Visit Medication Sig hydrocortisone-acetic acid (VOSOL-HC) otic solution Use 3 Drops in the left ear twice daily. albuterol HFA (PROVENTIL HFA) 90 mcg/actuation inhaler Inhale 2 Puffs as instructed every 6 hours as needed. insulin glargine (BASAGLAR KWIKPEN U-100 INSULIN) 100 unit/mL (3 mL) inpn inject 60 units subcutaneously at bedtime insulin aspart U-100 (NOVOLOG FLEXPEN U-100 INSULIN) 100 unit/mL inpn Take 12 units before meals lisinopril (ZESTRIL, PRINIVIL) 5 mg tablet Take 1 tablet by mouth once daily. albuterol (PROVENTIL) 2.5 mg/0.5 mL nebulizer solution Use 0.5 mL via nebulizer every 6 hours as needed. Insulin [place], Disposable, (BD ULTRA-FINE NATY PEN NEEDLES) 32 gauge x 5/32 ndle Use one needle for each dose. 3/day. Type 2 DM insulin dependant. lancets (FREESTYLE LANCETS) 28 gauge misc Test blood sugar(s) 3 times daily. Dx: Type 2 DM - Uncontrolled E11.65 Insulin: Yes blood sugar diagnostic (FREESTYLE LITE STRIPS) test strip Test blood sugar(s) 3 times daily. Dx: Type 2 DM - Uncontrolled E11.65 Insulin: Yes Blood-Glucose Meter (FREESTYLE LITE METER) monitoring kit Freestyle LITE Meter Kit - Dx: Type 2 DM - Uncontrolled E11.65 aspirin, enteric coated 81 mg EC tablet Take 81 mg by mouth once daily. No current facility-administered medications on file prior to visit. Past Medical History: PAST MEDICAL HISTORY Diagnosis Date Chronic bilateral low back pain with right-sided sciatica 03/17/2016 Chronic obstructive pulmonary disease (COPD) ([facility]) COPD, mild (HCC) 03/17/2016 DDD (degenerative disc disease), lumbar 03/18/[address] Sorensen's notes Diabetes ([facility]) Drug abuse ([facility]) 03/23/2016 Tox screen 02/2016 showed high levels of methamphetamines and OARRS was neg for any prescription sources. Essential hypertension 05/01/2015 Radiculopathy, lumbar region 03/18/2016 Smoker 05/01/2015 Started around age 17 up to a PPD. Thoracic radiculopathy 03/18/2016 Uncontrolled type 2 diabetes mellitus without complication, with long-term current use of insulin 03/22/2016 PHYSICAL EXAM: ECOG Performance Score: 1 General Appearance: Somewhat restless, sitting in chair. NAD. Skin: Large exophytic appearing lesion left forearm with underlying skin discoloration. Photo obtained today ENT: Oropharynx: MMM, nonerythematous, no lesions or exudates Lymph: No palpable cervical or supraclavicular ANTONELLA, no left axillary LN. Resp: comfortably breathing on RA CVS: Distal pulses intact and equal. Musculoskeletal: No obvious bony or joint abnl, no LE edema. Neurologic: Oriented x 3, face symmetric. Gait normal, speech and thought process normal. Sensation intact. Labs: 10/23/2024 Protein, Total 7.3 Albumin 3.0 (L) Calcium 9.1 Bilirubin, Total 0.4 Alkaline Phosphatase 106 AST 20 ALT 10 Glucose 362 (H) BUN 8 Creatinine 0.44 (L) Sodium 126 (L) Potassium 4.5 Chloride 92 (L) CO2 23 Anion Gap 11 eGFR 107 Pathology: FINAL DIAGNOSIS Lung, right lower lobe, mass, core biopsy: -Extensively necrotic poorly differentiated carcinoma (see comment). Radiologic Imaging: PET 09/10/24: IMPRESSION: HEAD/NECK: * Increased metabolic activity in the nasopharyngeal/parapharyngeal region, left greater than right, may represent intramuscular activity and/or residual lymphomatous involvement. Correlation with laryngoscopy recommended. * No metabolically active cervical adenopathy. CHEST: * Metabolically active left axillary node, presumed dung metastatic involvement from left forearm squamous cell carcinoma. * Metabolic reactive right perihilar mass contiguous with right hilar and subcarinal adenopathy and extending into the right lower lobe, presumed malignant. Associated postobstructive changes in the right lung. * Metabolically active AP window node, may represent additional dung metastatic involvement related to right lung findings. ABDOMEN/PELVIS: * Metabolically active inferior right hepatic lobe mass, presumed malignant. * No metabolically active abdominopelvic adenopathy. MUSCULOSKELETAL: * No metabolically active osseous lesion. * Intensely metabolically active left forearm squamous cell carcinoma, partially included in the CT [id number]. Impression and Plan: The patient is a 64 year old female with SCC skin of left distal forearm with mets to lung in setting of relative immunosuppression with history of NHL and uncontrolled diabetes who is here today to begin treatment # cSCC - reviewed diagnosis of SCC skin in chronic wound of distal left forearm, as well as bronch findings + PD carcinoma. - the patient relative immunosuppression, noting past history of DLBCL treated with RCHOP x 4 (of planned 6 cycles) in 2019, appears in continue CR - Discussed that treatment in [place] could be an option, but would be under the care of a different oncology team. She was uninterested in transferring care at this time. - Proceed with C1 cemiplimab today - RTC in 3 weeks for ongoing treatment - Plan to repeat scan after 4 cycles (not yet ordered) # Cancer related pain - Following with Dr. Martinez ([facility]) - oxycodone PRN Pat Hinds APRN.CNP I spent a total of 30 minutes on the date of the service which included preparing to see the patient, [id number] patient care, completing clinical documentation, obtaining and/or reviewing separately obtained history, performing a medically appropriate examination, counseling and educating the patient/family/caregiver, ordering medications, tests, or procedures, communicating with other HCPs (not separately reported), independently interpreting results (not separately reported), and communicating results to the patient/family/caregiver. Elements of this note, including HPI, ROS, Physical Exam, Assessment and Plan were copied and pasted from prior oncology encounter. Updates have been made where noted and reflect current exam and medical decision making from October 23, 2024 Pat Hinds APRN.DEMAND GENERATOR MANAGER Additional intake questions: Has the patient had fever, nausea, vomiting, diarrhea, constipation, fatigue for > 1 week? Yes, fatigue and tired Does the patient have a decreased appetite? No Does patient want to see a Headrig Sawyer? No (yes to any of above refer patient to schedulers for dietitian appointment) ) Does patient have any new or increased numbness or tingling of extremities? No Is patient interested in fertility information? NA Does patient need any prescription refills? No Does patient have an advanced directive in place? No, Patient refused referral to Social Work or Resource Center documented in this encounter [facility] 10-23-2024 Note [facility] 10-23-2024 Note [facility] 10-23-2024 History of Present illness Narrative ONCOLOGY PATIENT EDUCATION NOTE TOPIC: Immunotherapy, Medications: Cemiplimab daughter and patient here today for education for treatment of Head and Neck Cancer Anticipated/Scheduled start date: 10/23/24 READINESS TO LEARN: COGNITIVE ABILITY: Alert and oriented MOTIVATION TO LEARN: Interested FAMILY SUPPORT: High - Very involved in pt care INSTRUCTION PROVIDED TO: Patient and Daughter INSTRUCTION PROVIDED BY: Nurse Coordinator PATIENT LEARNS BEST BY: Written Instruction - Hand-outs Verbal Instruction FACTORS AFFECTING LEARNING: None PHYSICAL LIMITATIONS AFFECTING LEARNING: None LEARNING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 external nose normal without rhinorrhea OROPHARYNX: moist mucus membranes NECK: full ROM, no cervical LNs noted RESPIRATORY: breathing non-labored CHEST: equal chest rise with normal respiratory effort NEUROLOGIC: no obvious deficit ASSESSMENT/PLAN: 64 year old female current smoker with PMH of COPD, back pain, personality disorder, diabetes (on insulin), HTN, and non-Hodgkin's lymphoma (DLBCL, in nasopharyngeal area with bilateral cervical dung involvement), s/p [facility] (2017 or 2018 per pt), with 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 PET scan 09/10/24 showed tracer avid right perihilar mass contiguous with right hilar and subcarinal adenopathy and extending into the right lower lobe measures SUV max 12.7, with central photopenia/necrosis, approximately 7.6 x 5.3 cm (4:171). Associated postobstructive changes in the right lung. On preoperative examination, there are no clear contraindications for the patient to undergo general anesthesia. PATIENT IS TO GET EKG TOMORROW AM PRIOR TO BRONCH. SHE IS AWARE. Not on anticoagulation/anti-platelet therapy. No GLP-1 agonists or SGLT2 inhibitors. Risks, benefits, alternatives and personnel discussed with patient who consents to proceed. All questions answered. NPO as of midnight on the day before the planned procedure. Plan to proceed for airway evaluation and staging EBUS under [place], in order to aid in future treatment and management. Planned for tomorrow, Tuesday10/02/[address] Linnette Mojica. Result to go to referring physician, Dr. Johana Sagastume. (R91.8) Right lower lobe lung mass (primary encounter diagnosis) (R59.1) Lymphadenopathy (C85.90) Non-Hodgkin's lymphoma, unspecified body region, unspecified non-Hodgkin lymphoma type (HCC) (Z01.818) Preop examination (C44.629) SCC (squamous cell carcinoma), arm, left I spent a total of 40 minutes on the date of the service which included preparing to see the patient, [id number] patient care, completing clinical documentation, obtaining and/or reviewing separately obtained history, counseling and educating the patient/family/caregiver, ordering medications, tests, or procedures, communicating with other HCPs (not separately reported), independently interpreting results (not separately reported), communicating results to the patient/family/caregiver and care coordination (not separately reported). Brenna Leary PA-C documented in this encounter [facility] 10-01-2024 Note [facility] 10-01-2024 Telephone encounter Note Spoke with Vipul. Explained that I did not say that the procedure tomorrow is canceled, but that a consult must take place prior to the procedure. Let her know that the pulmonology team is going to be reaching out to see if they can get one scheduled for later today. Jeaneth Dimas RN [facility] Work Phone: 10-01-2024 Miscellaneous Notes Spoke with Vipul. Explained that I did not say that the procedure tomorrow is canceled, but that a consult must take place prior to the procedure. Let her know that the pulmonology team is going to be reaching out to see if they can get one scheduled for later today. Jeaneth Dimas RN Vipul called back to speak with Jeaneth. Transferred call to Rhiannon. Monalisa Fulton 10/01/2024 Doreen Denise('s) daughter: Vipul is calling Johana Sagastume MD today regarding Care Coordination (Procedure Tomorrow). Vipul states that she called this morning and was told that the patient's procedure for tomorrow is confirmed but she just got a call from her sister Anna who told her that her she got a call 10 minutes ago telling her the procedure was canceled. She wants to know if the procedure is canceled or not and would like a call back at [phone]. Patient has been identified by name and birthdate. Duration of symptoms: N/A Requesting response back: Yes [phone] (home) [phone] (cell) Saurabh Buck October 01, 2024 documented in this encounter [facility] 10-01-2024 Telephone encounter Note Vipul called back to speak with Jeaneth. Transferred call to Jeaneth. Monalisa Fulton 10/01/2024 [facility] 10-01-2024 Telephone encounter Note Doreen Denise('s) daughter: Vipul is calling Johana Sagastume MD today regarding Care Coordination (Procedure Tomorrow). Vipul states that she called this morning and was told that the patient's procedure for tomorrow is confirmed but she just got a call from her sister Anna who told her that her she got a call 10 minutes ago telling her the procedure was canceled. She wants to know if the procedure is canceled or not and would like a call back at [phone]. Patient has been identified by name and birthdate. Duration of symptoms: N/A Requesting response back: Yes [phone] (home) [phone] (cell) Saurabh Buck October 01, 2024 [facility] 10-01-2024 Telephone encounter Note Called Doreen's daughter Anna, to discuss the situation that occurred during her virtual visit with Dr. Mcdaniel on Tuesday. She is very apologetic about the situation that occurred on Tuesday. She believed that Doreen was cursing at her and not Dr. Mcdaniel, but admitted that she was very rude during the call. I reiterated the need and reasoning for the the procedure and explained that they would need to have another consult prior to the bronch. She was agreeable to this and understands the need for this to happen prior to the procedure. Will update the team. Jeaneth Dimas RN [facility] Work Phone: 10-01-2024 Miscellaneous Notes Called Doreen's daughter Anna, to discuss the situation that occurred during her virtual visit with Dr. Mcdaniel on Tuesday. She is very apologetic about the situation that occurred on Tuesday. She believed that Doreen was cursing at her and not Dr. Mcdaniel, but admitted that she was very rude during the call. I reiterated the need and reasoning for the the procedure and explained that they would need to have another consult prior to the bronch. She was agreeable to this and understands the need for this to happen prior to the procedure. Will update the team. Jeaneth Dimas RN documented in this encounter [facility] 09-28-2024 Telephone encounter Note Patient called to inquire why her virtual visit was cut short. Informed patient per provider, she will have to reschedule her appointment after referring provider has been contacted and updated by Dr Mcdaniel. [facility] 09-28-2024 Miscellaneous Notes Patient called to inquire why her virtual visit was cut short. Informed patient per provider, she will have to reschedule her appointment after referring provider has been contacted and updated by Dr Mcdaniel. documented in this encounter [facility] 09-28-2024 History of Present illness Narrative Images from the original note were not included. INTERVENTIONAL PULMONARY MEDICINE CONSULTATION PLEASE DO NOT REMOVE FROM THE CHART OR MODIFY PRINTED COPY Patient Name: Doreen Denise PRIMARY CARE PHYSICIAN: No primary care provider on file. REFERRING PHYSICIAN: Johana Sagastume (please cc for bronch result) This is a virtual visit using [email or web address] Video Visit. It required patient-provider interaction for the medical decision making as documented below. I have communicated my name and active licensure. The patient's identity and physical location were verified at the time of this visit. Either the patient or their legal help desk representative has been informed of the risks and benefits of -- and alternatives to -- treatment through a remote evaluation and consents to proceed with the evaluation remotely. 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 However, at the start of the visit, patient was extremely rude and used cursed words and told me to f off and shut it up. She is frustrated because she came to [facility] to get her left upper cancer off, however, she has been sent to do this and that, and she reports being done. Her family member tried to calm her down, but as I tried to explain that this visit is needed before bronchoscopy procedure, she was very angry and mad and does not understand why we are doing other things to her, other than what she had came for. HISTORY REVIEWED (electronic chart updated): PAST MEDICAL HISTORY Diagnosis Date Chronic bilateral low back pain with right-sided sciatica 03/17/2016 Chronic obstructive pulmonary disease (COPD) (HCC) COPD, mild (HCC) 03/17/2016 DDD (degenerative disc disease), lumbar 03/18/[address] Sorensen's notes Diabetes (HCC) Drug abuse (HCC) 03/23/2016 Tox screen 02/2016 showed high levels of methamphetamines and OARRS was neg for any prescription sources. Essential hypertension 05/01/2015 Radiculopathy, lumbar region 03/18/2016 Smoker 05/01/2015 Started around age 17 up to a PPD. Thoracic radiculopathy 03/18/2016 Uncontrolled type 2 diabetes mellitus without complication, with long-term current use of insulin 03/22/2016 PAST SURGICAL HISTORY Procedure Laterality Date ANESTH, SECTION BACK SURGERY HX MRSA No family history on file. Social History Tobacco Use Smoking status: Every Day Current packs/day: 0.50 Types: Cigarettes Smokeless tobacco: Never Substance Use Topics Alcohol use: No Drug use: No Comment: urine drug screen + amphetamines 03/17/16 Current Outpatient Medications Medication Sig oxyCODONE IR (ROXICODONE) 5 mg immediate release tablet Take 1-2 tablets by mouth every 4 hours as needed for pain for up to 7 days. Insulin [place], Disposable, (BD ULTRA-FINE NATY PEN NEEDLE) 32 gauge x Use one needle for each dose. 2/day. Type 2 DM insulin dependant. lancets (FREESTYLE LANCETS) 28 gauge Test blood sugar(s) 3 times daily. Dx: Type 2 DM - Uncontrolled E11.65 Insulin: Yes Blood-Glucose Meter (FREESTYLE LITE METER) monitoring kit Freestyle LITE Meter Kit - Dx: Type 2 DM - Uncontrolled E11.65 blood sugar diagnostic (FREESTYLE LITE STRIPS) test strip Test blood sugar(s) 3 times daily. Dx: Type 2 DM - Uncontrolled E11.65 Insulin: Yes insulin NPH-insulin regular 70/30 100 unit/mL (70-30) pen Inject 24 units before breakfast and 16 units before dinner. metroNIDAZOLE (FLAGYL) 500 mg tablet 1 tablet as directed. Crush 1-2 tablets and sprinkle over wound twice daily for odor. hydrocortisone-acetic acid (VOSOL-HC) otic solution Use 3 Drops in the left ear twice daily. albuterol HFA (PROVENTIL HFA) 90 mcg/actuation inhaler Inhale 2 Puffs as instructed every 6 hours as needed. lisinopril (ZESTRIL, PRINIVIL) 5 mg tablet Take 1 tablet by mouth once daily. albuterol (PROVENTIL) 2.5 mg/0.5 mL nebulizer solution Use 0.5 mL via nebulizer every 6 hours as needed. aspirin, enteric coated 81 mg EC tablet Take 81 mg by mouth once daily. No current facility-administered medications for this visit. ALLERGIES Allergen Reactions Codeine Rash Vicodin [Hydrocodon* Rash REVIEW OF SYSTEMS: Unable to complete PHYSICAL EXAMINATION: VIDEO EXAM: (if completed, performed via video enabled technology) No exam performed IMPRESSIONS: # Hypermetabolic left lower lobe mass with adenopathy # History of DLBCL s/p RCHOP # Current LUE squamous cell carcinoma RECOMMENDATION/PLAN: No review of the scans or any detailed explanation was able to be provided to the patient as she was extremely rude and cursing. While I understand the frustrations with ongoing pain (from chart review) and she just would like to proceed to next step of care as soon as possible, I tried to explain reason for visit, she would not allow the visit to be completed. She was frustrated that we are doing so many tests to/ on her, but not the surgery she wanted/ needed for the left arm cancer. She also gave our diver's tender a hard time when we tried to schedule her for a visit and the bronchoscopy. I have communicated my encounter to Dr. Sagastume who will have her nurse reach out to see if they have any needs, but only if they are agreeable with a plan, we will move forward to reschedule again. Electronically Signed: Conchita Mcdaniel MD September 28, 2024 1:33 PM I spent a total of 30 minutes on the date of the service which included preparing to see the patient, completing clinical documentation, obtaining and/or reviewing separately obtained history, and care coordination (not separately reported) Encounter started as a virtual visit (audio-visual) but was converted to a telephone visit (audio only) due to insurmountable technological challenges. documented in this encounter [facility] 09-28-2024 Note [facility] 09-25-2024 Telephone encounter Note Prior authorization required for trbo [employer] with/ Device Kit Preferred meters and test strips include: Alison (e.g., Accu-Check Harper Plus, Accu-Check Guide, Accu-Chek Guide Me) or [employer] (e.g. TrueMetrix, TrueTrack). Jania Siegel RN September 25, 2024 4:17 PM [facility] 09-21-2024 Telephone encounter Note Spoke with pt to schedule Bronchoscopy 10/02/24.New Consult will be 09/28/24 @ 1 pm with . Pt's daughter was ok with different doctor doing procedure. EKG will be done prior to check in on same day @ 7 am in [facility]. [facility] 09-21-2024 Miscellaneous Notes Spoke with pt to schedule Bronchoscopy 10/02/24.New Consult will be 09/28/24 @ 1 pm with . Pt's daughter was ok with different doctor doing procedure. EKG will be done prior to check in on same day @ 7 am in [facility]. documented in this encounter [facility] 09-21-2024 Telephone encounter Note Spoke with daughter Vipul. She has concerns that her mothers arm mass is worsening. She states that it has more drainage and the odor is much stronger. She wanted to know if she should bring her to the emergency room. Advised that this along with the mental status change that the recommendation is still to bring her to the emergency room like we discussed on 09/18. She will wait for her sister to get off work and then bring her to out emergency room. Jeaneth Dimas RN [facility] Work Phone: 09-21-2024 Miscellaneous Notes Spoke with daughter Vipul. She has concerns that her mothers arm mass is worsening. She states that it has more drainage and the odor is much stronger. She wanted to know if she should bring her to the emergency room. Advised that this along with the mental status change that the recommendation is still to bring her to the emergency room like we discussed on 09/18. She will wait for her sister to get off work and then bring her to out emergency room. Jeaneth Dimas RN documented in this encounter [facility] 09-19-2024 Telephone encounter Note Spoke with daughter Vipul. She has concerns as to why the bronchoscopy has not been scheduled yet. Advised that she was cleared for the procedure and the request was sent to the scheduling team and they will reach out to schedule the procedure. Vipul is concerned that the process is taking too long and that her mother is getting worse. Reminded that when we spoke yesterday we did advise them to bring her into the Emergency Room due to her symptoms. Vipul stated that she does not feel Doreen needs to be seen in there Emergency Room. Explained that the process can take some time but that all of the correct teams are involved and are working on getting everything scheduled and completed. She was receptive to this information and will call with further questions. Jeaneth Dimas RN [facility] Work Phone: 09-19-2024 Miscellaneous Notes Spoke with daughter Vipul. She has concerns as to why the bronchoscopy has not been scheduled yet. Advised that she was cleared for the procedure and the request was sent to the scheduling team and they will reach out to schedule the procedure. Vipul is concerned that the process is taking too long and that her mother is getting worse. Reminded that when we spoke yesterday we did advise them to bring her into the Emergency Room due to her symptoms. Vipul stated that she does not feel Doreen needs to be seen in there Emergency Room. Explained that the process can take some time but that all of the correct teams are involved and are working on getting everything scheduled and completed. She was receptive to this information and will call with further questions. Jeaneth Dimas RN Doreen Gatese('s) daughter: Anna is calling Johana Sagastume MD today regarding [facility] - Other (Biopsy) Anna calling to follow up on when patient would be having a biopsy. Would like a call back. Patient has been identified by name and birthdate. Requesting response back: [phone] (home) [phone] (cell) Janna Washington September 19, 2024 documented in this encounter [facility] 09-19-2024 Telephone encounter Note Doreen Denise('s) daughter: Anna is calling Johana Sagastume MD today regarding [employer] [place] - Other (Biopsy) Anna calling to follow up on when patient would be having a biopsy. Would like a call back. Patient has been identified by name and birthdate. Requesting response back: [phone] (home) [phone] (cell) Janna Washington September 19, 2024 [facility] 09-18-2024 Telephone encounter Note Care Coordination Triage Note [facility] [place] Situation: Patient reports Neurological symptoms/Change in Mental Status Background: cSCC left forearm, no active treatment Assessment: Change in Mental Status: Describe the patient s change from baseline: Per the daughters, starting yesterday (09/17) patient has been more weak/fatigued, wandering around the house and disoriented to where she is at. Patient was noted to be urinating on the floor and has had increased frequency in urination as well. When did this occur? 09/17 Did these changes start suddenly or gradually? Suddenly Is the patient able to be awakened? Yes Is the patient restless or agitated? No Is the patient confused about time, place or person? Yes, disoriented to place Is the patient oriented, but inappropriate? No Has this happened before? No Any associated symptoms such as a recent fall or seizure activity? No Any reported headache? No Any history of diabetes? No Any urinary symptoms (urgency, frequency, pain with urination)? Yes, frequency Recommendations: Per RNCC discussion, patient directed to: Emergency Room due to the issue being urgent. Advised daughters to bring patient into the Emergency Room for evaluation. They stated they will wait for the patient to wake up and then will bring her downtown to the Emergency Room. Jeaneth Dimas RN September 18, 2024 9:25 AM [facility] Work Phone: 09-18-2024 Miscellaneous Notes Care Coordination Triage Note [facility] [place] Situation: Patient reports Neurological symptoms/Change in Mental Status Background: cSCC left forearm, no active treatment Assessment: Change in Mental Status: Describe the patient s change from baseline: Per the daughters, starting yesterday (09/17) patient has been more weak/fatigued, wandering around the house and disoriented to where she is at. Patient was noted to be urinating on the floor and has had increased frequency in urination as well. When did this occur? 09/17 Did these changes start suddenly or gradually? Suddenly Is the patient able to be awakened? Yes Is the patient restless or agitated? No Is the patient confused about time, place or person? Yes, disoriented to place Is the patient oriented, but inappropriate? No Has this happened before? No Any associated symptoms such as a recent fall or seizure activity? No Any reported headache? No Any history of diabetes? No Any urinary symptoms (urgency, frequency, pain with urination)? Yes, frequency Recommendations: Per RNCC discussion, patient directed to: Emergency Room due to the issue being urgent. Advised daughters to bring patient into the Emergency Room for evaluation. They stated they will wait for the patient to wake up and then will bring her downtown to the Emergency Room. Jeaneth Dimas RN September 18, 2024 9:25 AM Doreen Denise('s) daughters: Candi is calling Johana Sagastume MD today regarding Care Coordination (Memory impairment, disorientation, urinating on the floor.). Candi state that the patient is having memory impairment, disorientation, urinating on the floor, and yelling at people who are not there. Patient has been identified by name and birthdate. Duration of symptoms: 2 days Requesting response back: no action needed [phone] (home) [phone] (cell) Paged marisa Agrawal. Saurabh Buck September 18, 2024 documented in this encounter [facility] 09-18-2024 Telephone encounter Note Doreen Denise('s) daughters: Candi is calling Johana Sagastume MD today regarding Care Coordination (Memory impairment, disorientation, urinating on the floor.). Candi state that the patient is having memory impairment, disorientation, urinating on the floor, and yelling at people who are not there. Patient has been identified by name and birthdate. Duration of symptoms: 2 days Requesting response back: no action needed [phone] (home) [phone] (cell) Paged marisa Agrawal. Saurabh Buck September 18, 2024 [facility] 09-17-2024 Telephone encounter Note Doreen Denise('s) daughter: Anna is calling Amrit Martinez MD today regarding Refill Request. Patient has been identified by name and birthdate. Requesting delivery method: call[facility]escript [facility]: [facility] Additional Concern: N/A Requesting response back: call on cell [phone] RANI Taylor September 17, 2024 [facility] 09-17-2024 Miscellaneous Notes Doreen Denise('s) daughter: Anna is calling Amrit Martinez MD today regarding Refill Request. Patient has been identified by name and birthdate. Requesting delivery method: call/escript to: [facility] Additional Concern: N/A Requesting response back: call on cell [phone] RANI Taylor September 17, 2024 documented in this encounter [facility] 09-17-2024 Note [facility] 09-17-2024 History of Present illness Narrative Bronchoscopy Request: Cleared for scheduling September 17, 2024 Please schedule patient for the following: Diagnostic EBUS New Consultation Her daughter Anna is the responsible one to answer the phone and make sure she comes to appts, etc. The patient nor her other daughters answer reliably. Clinical Trial Candidate: No Visit and Bronchoscopy: Different Day - New Patient Visit Time Allotment/Tier: TIER 2: 2 HOUR Physician Performing Bronchoscopy: Bronch A, B or C Anesthesia Type: General Special Requests: None Needs Labs: No Needs EKG: Yes Needs CT prior: No Does the pt need cardiac clearance? No Is he/she on anticoagulants/anti-plt therapy? No Nursing Considerations: (ie: detention, TB, respiratory isolation, etc.) Her daughter Anna is the responsible one to answer the phone and make sure she comes to appts, etc. The patient nor her other daughters answer reliably. Diagnosis/Reason for Bronchoscopy: PET with hypermetabolic mass in chest and liver more likely be a lymphoma recurrence rather than her skin SCC Referred by: Nikia Sagastume [phone] Reviewed by: Alejandro Burnette MD September 17, 2024 12:59 PM Addendum: CBC with diff: WBC 10.47 09/14/2024 RBC 3.94 09/14/2024 Hemoglobin 11.1 09/14/2024 Hematocrit 33.6 09/14/2024 MCV 85.3 09/14/2024 MCH 28.2 09/14/2024 MCHC 33.0 09/14/2024 RDW-CV 13.8 09/14/2024 Platelet Count 316 09/14/2024 MPV 9.4 09/14/2024 Neutrophils % 80.3 09/14/2024 Lymphocytes % 10.4 09/14/2024 Monocytes % 6.0 09/14/2024 Eosinophils % 2.7 09/14/2024 Basophils % 0.1 09/14/2024 Abs Neut 8.41 09/14/2024 Abs [place] 0.63 09/14/2024 Abs Eosin 0.28 09/14/2024 Abs Baso <0.03 09/14/2024 Potassium Date Value Ref Range Status 09/14/2024 4.2 3.5 - 5.1 mmol/L Final 09/04/2024 5.3 (H) 3.7 - 5.1 mmol/L Final 03/01/2018 4.8 3.7 - 5.1 mmol/L Final Sodium Date Value Ref Range Status 09/14/2024 133 (L) 136 - 145 mmol/L Final 09/04/2024 126 (L) 136 - 144 mmol/L Final 03/01/2018 127 (L) 136 - 144 mmol/L Final BUN Date Value Ref Range Status 09/14/2024 11 7 - 26 mg/dL Final Creatinine Date Value Ref Range Status 09/14/2024 0.47 (L) 0.51 - 0.95 mg/dL Final Comment: Patients receiving either N-Acetylcysteine (NAC) or Metamizole prior to venipuncture, may have falsely depressed results. documented in this encounter [facility] 09-14-2024 Telephone encounter Note Palliative Medicine Care Coordination NEW PATIENT NOTE PHONE ENCOUNTER Patient identified by name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 Analgesics OTHER Medication Dosage Pharm Subclass albuterol (PROVENTIL) 2.5 mg/0.5 mL nebulizer solution Use 0.5 mL via nebulizer every 6 hours as needed. Asthma/COPD Therapy - Beta 2-Adrenergic Agents, Inhaled, Short Acting albuterol HFA (PROVENTIL HFA) 90 mcg/actuation inhaler Inhale 2 Puffs as instructed every 6 hours as needed. Asthma/COPD Therapy - Beta 2-Adrenergic Agents, Inhal (more content not included)... [facility] 09-07-2024 History of Present illness Narrative Images from the original note were not included. [facility] NEW CONSULTATION DIABETES VISIT THIS IS A VIRTUAL VISIT I have communicated my name and active licensure. The patient's identity and physical location were verified at the time of this visit. Either the patient or their legal help desk representative has been informed of the risks and benefits of -- and alternatives to -- treatment through a remote evaluation and consents to proceed with the evaluation remotely. Doreen Denise is here for a consultation regarding: DM Type 2 My final recommendations will be communicated back to the requesting physician by way of shared Medical record or letter to requesting physician via [place] mail. Referred by Dr. Sagastume PCP is No primary care provider on file. To use this Smartlink, specify the provider ID whose address you want to display, e.g., .[email or web address][1 (where 1 is the provider ID). I reviewed the current allergies, medications, electronic medical record, lab(s), outside lab(s) results, history of vaccinations, and chief complaints. I edited the information obtained, as required. History of Present Illness Some elements in this note were copied from previous endocrine note and have been updated as appropriate today. 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 First Chemo therapy- 2019 - ; B-cell Lymphoma in 2019; No Chemo since 2019 Family history of diabetes includes mother Type 1. 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 no Vitamin D level: none noted Occupation: no, on disability, retired Home: Live alone Physical Activity: Modest Less active recently due to Ca on arm Diet: No specific diet regimen Grazes throughout day, candy bars,, drinks soda, sweet tea No se meal times SMBG Frequency of Monitoring: Three times a Day BG Values: Breakfast: 300-400 Lunch: 300s Dinner: 300-400 Bed-time: 400s + Hypoglycemia Frequency: no Hypoglycemia Awareness:yes Symptoms of Hyperglycemia including polyuria, polydipsia, rapid weight loss, blurred vision: yes Prior DM Medications: - Metformin -- started within past two days--does not like Current DM Related Medications: Elaine OLGUIN sent her home on: NPH 70/30 BID 10-0-10-0 The ASCVD Risk score (Johanna BOYD, et al., 2019) failed to calculate for the following reasons: Cannot find a previous HDL lab Cannot find a previous total cholesterol lab Current Medications 09/07/2024 DIABETES THERAPIES Medication Dosage Pharm Subclass insulin aspart U-100 (NOVOLOG FLEXPEN U-100 INSULIN) 100 unit/mL inpn Take 12 units before meals Insulin Analogs - Rapid Acting insulin glargine (BASAGLAR KWIKPEN U-100 INSULIN) 100 unit/mL (3 mL) inpn inject 60 units subcutaneously at bedtime Insulin Analogs - Long Acting CARDIOVASCULAR Medication Dosage Pharm Subclass lisinopril (ZESTRIL, PRINIVIL) 5 mg tablet Take 1 tablet by mouth once daily. KAPIL Inhibitors ANTI-PLATELET THERAPIES Medication Dosage Pharm Subclass aspirin, enteric coated 81 mg EC tablet Take 81 mg by mouth once daily. Salicylate Analgesics ASPIRIN Medication Dosage Pharm Subclass aspirin, enteric coated 81 mg EC tablet Take 81 mg by mouth once daily. Salicylate Analgesics OTHER Medication Dosage Pharm Subclass albuterol (PROVENTIL) 2.5 mg/0.5 mL nebulizer solution Use 0.5 mL via nebulizer every 6 hours as needed. Asthma/COPD Therapy - Beta 2-Adrenergic Agents, Inhaled, Short Acting albuterol HFA (PROVENTIL HFA) 90 mcg/actuation inhaler Inhale 2 Puffs as instructed every 6 hours as needed. Asthma/COPD Therapy - Beta 2-Adrenergic Agents, Inhaled, Short Acting blood sugar diagnostic (FREESTYLE LITE STRIPS) test strip Test blood sugar(s) 3 times daily. Dx: Type 2 DM - Uncontrolled E11.65 Insulin: Yes Medical Supplies and DME - Blood Glucose Tests Blood-Glucose Meter (FREESTYLE LITE METER) monitoring kit Freestyle LITE Meter Kit - Dx: Type 2 DM - Uncontrolled E11.65 Medical Supplies and DME - Glucose Monitoring Test Supplies hydrocortisone-acetic acid (VOSOL-HC) otic solution Use 3 Drops in the left ear twice daily. Otic (Ear) - Glucocorticoids Insulin [place], Disposable, (BD ULTRA-FINE NATY PEN NEEDLES) 32 gauge x 5/32 ndle Use one needle for each dose. 3/day. Type 2 DM insulin dependant. Medical Supplies and DME - Insulin [place]-Syringes and Admin Supplies lancets (FREESTYLE LANCETS) 28 gauge misc Test blood sugar(s) 3 times daily. Dx: Type 2 DM - Uncontrolled E11.65 Insulin: Yes Medical Supplies and DME - Glucose Monitoring Test Supplies metroNIDAZOLE (FLAGYL) 500 mg tablet 1 tablet as directed. Crush 1-2 tablets and sprinkle over wound twice daily for odor. Antiprotozoal-Antibacterial 1st Generation 8-xkripc-0-nitroimidazole traMADol (ULTRAM) 50 mg tablet Take 1 tablet by mouth every 6 hours as needed for pain for up to 14 days. Analgesic Opioid Agonists Past History, Medications, Allergies PAST MEDICAL HISTORY Diagnosis Date Chronic bilateral low back pain with right-sided sciatica 03/17/2016 Chronic obstructive pulmonary disease (COPD) ([facility]) COPD, mild ([facility]) 03/17/2016 DDD (degenerative disc disease), lumbar 03/18/[address] Sorensen's notes Diabetes ([facility]) Drug abuse ([facility]) 03/23/2016 Tox screen 02/2016 showed high levels of methamphetamines and OARRS was neg for any prescription sources. Essential hypertension 05/01/2015 Radiculopathy, lumbar region 03/18/2016 Smoker 05/01/2015 Started around age 17 up to a PPD. Thoracic radiculopathy 03/18/2016 Uncontrolled type 2 diabetes mellitus without complication, with long-term current use of insulin 03/22/2016 PAST SURGICAL HISTORY Procedure Laterality Date ANESTH, SECTION BACK SURGERY HX MRSA ALLERGIES Allergen Reactions Codeine Rash Vicodin [Hydrocodon* Rash No family history on file. Social History Tobacco Use Smoking status: Every Day Current packs/day: 0.50 Types: Cigarettes Smokeless tobacco: Never Substance Use Topics Alcohol use: No Drug use: No Comment: urine drug screen + amphetamines 03/17/16 Review of Systems GENERAL: No weight loss, malaise or fevers RESPIRATORY: Negative for cough, hemoptysis, wheezing, COPD, dyspnea or shortness of breath CARDIOVASCULAR: Negative for chest pain, leg swelling, hypertension, CHF or palpitations GI: No nausea, vomiting, or diarrhea ENDOCRINE: Negative for cold or heat intolerance, polyuria, polydipsia and goiter Feet: Numbness and tingling NEUROLOGIC:Negative for focal numbness or weakness, headaches and dizziness or syncope. Physical examination Limited due to virtual visit There were no vitals taken for this visit. General appearance: Well appearing, alert, in no acute distress, well-hydrated, well nourished. NEURO: Speech normal, mental status intact, no tremor noted. Previous Laboratory Results LABS Glucose (mg/dL) Date Value 09/04/2024 513 03/01/2018 382 04/15/2017 254 05/17/2016 176 Potassium (mmol/L) Date Value 09/04/2024 5.3 03/01/2018 4.8 Sodium (mmol/L) Date Value 09/04/2024 126 03/01/2018 127 04/15/2017 139 05/17/2016 141 Chloride (mmol/L) Date Value 09/04/2024 89 03/01/2018 91 04/15/2017 98 05/17/2016 101 CO2 (mmol/L) Date Value 09/04/2024 29 03/01/2018 20 04/15/2017 29 05/17/2016 26 Creatinine (mg/dL) Date Value 09/04/2024 0.53 03/01/2018 0.45 04/15/2017 0.55 05/17/2016 0.55 BUN (mg/dL) Date Value 09/04/2024 15 03/01/2018 11 04/15/2017 11 05/17/2016 10 Anion Gap (mmol/L) Date Value 09/04/2024 8 03/01/2018 16 04/15/2017 12 05/17/2016 14 Calcium (mg/dL) Date Value 03/01/2018 9.4 04/15/2017 9.1 05/17/2016 8.8 Calcium, Total (mg/dL) Date Value 09/04/2024 9.2 eGFR- (no units) Date Value 03/01/2018 >60 04/15/2017 >60 05/17/2016 >60 eGFR-All Other Races (.) Date Value 03/01/2018 >60 04/15/2017 >60 05/17/2016 >60 Estimated Glomerular Filtration Rate (mL/min/1.73m ) Date Value 09/04/2024 102 ALT (U/L) Date Value 09/04/2024 13 03/01/2018 16 04/15/2017 14 05/17/2016 16 No results found for: TSH, FREET4 Impression/Recommendations IMPRESSION Doreen Denise is a 64 year old here for evaluation of DM Type 2 complicated by hypertension, hyperlipidemia, and peripheral neuropathy (E11.65) Poorly control type 2 diabetes mellitus (HCC) (primary encounter diagnosis) (E11.8, E11.65) Poorly controlled type 2 diabetes mellitus with complication (HCC) (E11.9, Z79.4) Diabetes mellitus treated with insulin (HCC) Plan: C-PEPTIDE BLD, RENAL FUNCTION PANEL, GLUTAMIC AC DECARBOXYLASE AB, CONSULT TO OPHTHALMOLOGY, ALBUMIN/CREATININE RATIO, URINE, Insulin [place], Disposable, (BD ULTRA-FINE NATY PEN NEEDLE) 32 gauge x 5/32, lancets (FREESTYLE LANCETS) 28 gauge, Blood-Glucose Meter (FREESTYLE LITE METER) monitoring kit, blood sugar diagnostic (FREESTYLE LITE STRIPS) test strip, insulin NPH-insulin regular 70/30 100 unit/mL (70-30) pen, TSH W/REFLEX FT4, CONSULT TO DIABETES EDUCATION DSME RECOMMENDATIONS: 1. Glycemic control: Per ADA Guidelines a target HgbA1C is less than 7.0 % without hypoglycemia. Most recently your HgbA1C is not at target - Glucose reported is globally elevated - Family history of diabetes mellitus type 1 as well as Chemo in 2019; likely deficient endogenous insulin - Known history of non-compliance - Reports currently needing surgery for SCC on arm, but needs A1C controlled - Will be stopping metformin, sending for MADIE/Cpeptide workup - Plan to adjust Nph 70/30 insulins today - Ongoing Poor diet and lack of exercise reported, discussed need for lifestyle modification--will also send to diabetes education Plan NPH 24 units before breakfast and 16 units before dinner Stop Metformin Get fasting labs completed Schedule with diabetes mellitus education and ophthalmology Follow 09/26/24 Check your blood glucose 3 times per day and record data in logbook and bring to each visit We reviewed glucose targets as: Fasting 80-130, before meals 100-130, and bedtime 100-150 mg/dL. Call the office with blood sugars less than 70 Keep glucose tablets or hard candy with you at all times in case of a low blood sugar Patient to continue to follow up with his PCP and with other consultants regarding his other medical problems. The patient was reminded to check their blood glucose as directed and to record the data in a logbook. This patient was advised to bring their logbook to each office visit. I recommended at least 150 minutes per week of moderate physical activity, such as walking and to reduce carbohydrates and overall caloric intake. Hypoglycemia guidelines as well as driving with diabetes reviewed with patient. 2. Hypertension/BP control: BP goal for patients with diabetes is 130/80. -- No VS taken due to virtual visit 3. Lipids: Target LDL cholesterol in patients with diabetes is less than 100, less than 70 if patient has overt CVD. Several studies have shown cardiovascular benefits of statin therapy in all patients with diabetes over age 40 with at least 1 CVD risk factor. Cholesterol, Total Date Value Ref Range Status 04/15/2017 99 (L) 100 - 199 mg/dL Final HDL Cholesterol Date Value Ref Range Status 04/15/2017 65 >55 mg/dL Final LDL Cholesterol Date Value Ref Range Status 04/15/2017 26 (L) 60 - 129 mg/dL Final Triglyceride Date Value Ref Range Status 04/15/2017 38 30 - 149 mg/dL Final -- This patient is not at target on current statin regimen. 4. Nephropathy screening: Annual measurement of urine albumin excretion is recommended in patients with diabetes. Albumin/Creat Ratio (mg/g) Date Value 07/07/2017 Not calculated Protein, Urine (mg/dL) Date Value 04/15/2017 Negative Creatinine, Ur Random (UCRR) (mg/dL) Date Value 07/07/2017 28.5 -- This patient is not up to date on microalbumin screening and this was ordered today. 5. Ophthalmology: Annual dilated eye exams are recommended for patients with type 1 and type 2 diabetes. -- This patient is not up to date with their annual eye exam and was referred to an jury consultant at this visit. -- Last seen 5+ years ago Any part of this document that has been added/copied & pasted from other documents has been reviewed for accuracy and updated as appropriate at the time of the patient encounter I spent a total of 60 minutes on the date of the service which included preparing to see the patient, [id number] patient care, completing clinical documentation, obtaining and/or reviewing separately obtained history, performing a medically appropriate examination, counseling and educating the patient/family/caregiver, and ordering medications, tests, or procedures. Bi Ho APRN.SAÚL Endocrinology & Metabolism [place] documented in this encounter [facility] 09-05-2024 Discharge summary Note Date/Time September 05, 2024 8:10am [facility] Medical Records Department [address] [place] [address] Instructions for Home/Discharge Instructions 09/05/24 0655 MR#: [id number] Acct: [id number] Name: DOREEN DENISE Rep #:[id number] : 1960 64 From: Huseyin Truong DO PCP: Care Physician,No Primary Status :ADM MARILEE Discharge Instructions Diet Discharge Diet: 1800 Calorie Control Diet DC O2, CPAP, BIPAP needs Home O2 Discharge instructions: No Dressing / Incision Discharge Activity: Return to Normal Activity Weight Bearing Status: Full weight bearing Follow Up Care Test Results: Test results from this visit will be discussed in further detail at your follow-up appointment, if applicable. Discharge Plan Admission Admit Date/Time: 09/04/24 23:55 Primary Reason for Your Visit: Uncontrolled type 2 diabetes Attending Provider: Huseyin Truong Primary Care Provider: Care Physician,No Primary Consulting Providers: Isabel Pelaez Discharge Orders/Prescriptions Prescriptions: New insulin glargine-yfgn 100 unit/mL (3 mL) Insulin Pen 10 unit subcut BID Qty: 15 0RF metformin 500 mg tablet 500 mg PO BID Qty: 60 0RF (DME) pen needle, diabetic 31 gauge x 1/3 needle See Rx Instructions .Route Qty: 100 0RF Rx Instructions: As directed Referrals / Follow Up: Care Physician,No Primary [Primary Care Provider] - Sánchez Bhagat Dionna, JEWELRY MAKER-C [[facility]] - Within 2 Weeks (Call for appointment) Disposition Disposition (needs filled in before D/C Order can be placed): Home, Self Care 09/05/24 0810<Electronically signed by Huseyin Truong DO>Huseyin Truong DO CC: Dr. Isabel Pelaez MD; No Primary Care Physician ~ Signed [facility] Work Phone: [phone] Discharge summary [facility] Medical Records Department [address] [place] [address] Instructions for Home/Discharge Instructions 09/05/24 0655 MR#: [id number] Acct: [id number] Name: DOREEN DENISE Rep #:[id number] : 1960 64 From: Huseyin Truong DO PCP: Care Physician,No Primary Status :ADM MARILEE Discharge Instructions Diet Discharge Diet: 1800 Calorie Control Diet DC O2, CPAP, BIPAP needs Home O2 Discharge instructions: No Dressing / Incision Discharge Activity: Return to Normal Activity Weight Bearing Status: Full weight bearing Follow Up Care Test Results: Test results from this visit will be discussed in further detail at your follow- up appointment, if applicable. Discharge Plan Admission Admit Date/Time: 09/04/24 23:55 Primary Reason for Your Visit: Uncontrolled type 2 diabetes Attending Provider: Huseyin Truong Primary Care Provider: Care Physician,No Primary Consulting Providers: Isabel Pelaez Discharge Orders/Prescriptions Prescriptions: New insulin glargine-yfgn 100 unit/mL (3 mL) Insulin Pen 10 unit subcut BID Qty: 15 0RF metformin 500 mg tablet 500 mg PO BID Qty: 60 0RF (DME) pen needle, diabetic 31 gauge x 1/3 needle See Rx Instructions .Route Qty: 100 0RF Rx Instructions: As directed Referrals / Follow Up: Care Physician,No Primary [Primary Care Provider] - Sánchez Bhagat Dionna, JEWELRY MAKER-C [[facility]] - Within 2 Weeks (Call for appointment) Disposition Disposition (needs filled in before D/C Order can be placed): Home, Self Care 09/05/24809Huseyin Truong DO CC: Dr. Isabel Pelaez MD; No Primary Care Physician ~ Signed [facility]03-19-2025 [facility] Medical Records Department [address] [place] [address] Discharge Summary 09/05/24 0810 MR#: [id number] Acct: [id number] Name: DOREEN DENISE LONNIE Rep #: [id number] : 1960 64 From: Huseyin Truong DO PCP: Care Physician,No Primary Status:DIS MARILEE Location: [place] [address] Providers Date of Admission: 09/04/24 Date of Discharge: 09/05/24 Primary Care Physician: No Primary Care Phys Reason For Visit: HYPERGLYCEMIA, ADULT FTT Diagnosis Discharge Diagnosis (1) Acute hyponatremia: Status: Acute Code(s): E87.1 - Hypo-osmolality and hyponatremia Plan 1. Hyponatremia #2 uncontrolled type 2 diabetes #3 left upper extremity neoplasm present before admission Medications at Discharge Home Medications insulin glargine-yfgn 100 unit/mL (3 mL) subcutaneous pen 10 unit (0.1 mL) subcut BID #15 mL 09/05/24 metformin 500 mg tablet 500 mg PO BID #60 tabs 09/05/24 pen needle, diabetic 31 gauge x 1/3 #100 ea 09/05/24 Hospital Course Operations None Procedures None Summary of Care Provided Minutes Spent on Discharge: 31 Hospital Course: This 64-year-old white female was seen in the emergency room at [facility] with chief complaint of malaise and generalized fatigue for the past 4 to 5 months. Patient was seen plastic surgery for a growth on her left forearm. Patient stated in the last several weeks she has had polyuria and polydipsia and she had some labs from oncology this morning as an outpatient and her blood sugar was over 500. She was directed to come to the emergency room for evaluation. She had been diagnosed with diabetes in the past but patient was under the impression that had resolved on its own. Patient stated she is to be on insulin. Workup in the emergency room revealed her white blood cell count to be slightly elevated at 11.3, hemoglobin was 10.7, sodium is low at 125, glucose was 388, analysis was unremarkable. Patient was placed into observation status on PCU for acute hyponatremia and uncontrolled type 2 diabetes, she was given IV fluids and labs were monitored, she was given insulin. Patient's labs improved during her hospitalization with her sodium at the time of discharge being 132. On 09/05/2024, patient was seen and examined: On examination she appeared older than her stated age and appearing frail, she does not appear to be in any distress. Vital signs as documented. Skin warm and dry and without overt rashes. There was a raised skin lesion over the patient's left forearm that measured 6 x 4 cm and had a verrucoid appearance. Neck without JVD, thyroid appears normal, trachea is midline, neck is supple. Lungs clear, normal air movement was noted. Heart exam notable for regular rhythm, normal sounds and absence of murmurs, rubs or gallops. Abdomen unremarkable and without evidence of organomegaly, masses, or abdominal aortic enlargement, bowel sounds are present in all 4 quadrants, no abdominal tenderness was noted. Extremities nonedematous, no cyanosis was noted, no clubbing was noted. Neuro: Cranial nerves II through XII are grossly intact, no focal motor deficits were noted, sensation to light touch and pinprick is intact, motor exam 5/5 throughout. Psych: Patient is alert and oriented x3, she does not appear anxious or depressed, she does not appear agitated. Patient appears stable for discharge on 09/05/2024 Weight / BMI Weight Weight: 62.1 kg Body Mass Index (BMI) 21.4 ABG / Lab / Microbiology Data 09/05/24 04:19 09/05/24 04:19 Laboratory: Laboratory Results - last 24 hr 09/04/24 22:35: WBC 11.3 H, RBC 3.72 L, Hgb 10.7 L, Hct 30.9 L, MCV 83.1, MCH 28.8, MCHC 34.6, RDW Std Deviation 40.4, RDW Coeff of Devi 13.5, Plt Count 245, MPV 9.9, Immature Gran % (Auto) 0.500, N eut % (Auto) 78.4 H, Lymph % (Auto) 12.1 L, [place] % (Auto) 6.7, Eos % (Auto) 2.1, Baso % (Auto) 0.2, Absolute Neuts (auto) 8.9 H, Absolute Lymphs (auto) 1.37, Nucleated RBC % 0, Sodium 125 L, Potassium 4.6, Chloride 90 L, Carbon Dioxide 26.7, Anion Gap 9, BUN 14, Creatinine 0.68 L, Estim Creat Clear Calc 67.27, Est GFR (MDRD) Non-Af 96, BUN/Creatinine Ratio 20.1 H, Glucose 388 H, Calcium 8.6, b- Hydroxybutyric mmol/L 0.1 09/04/24 22:38: Phosphorus 2.7, Magnesium 1.7 09/04/24 23:24: Urine Color Yellow, Urine Clarity Sl. Cloudy, Urine pH 7.0, Ur Specific [place] 1.010, Urine Protein 15 H, Urine Glucose (UA) 1000 H, Urine Ketones Negative, Urine Occult Blood 25 H, Urine Nitrite Negative, Urine Bilirubin Negative, Urine Urobilinogen Normal, Ur Leukocyte Esterase Negative, Urine RBC 0-5 SEEN, Urine WBC 0-5 SEEN, Ur Squamous Epith Cells 0 SEEN, Urine Bacteria 1+, Urine Mucus 0 SEEN 09/05/24 00:11: Urine Opiates Screen NEGATIVE, U Buprenorphine Qual NEGATIVE, Ur Oxycodone Screen PRESUMTIVE POSITIVE, Urine Methadone Screen NEGATIVE, Urine Fentanyl Scre (more content not included)...[facility]03-19-2025 History and physical note Author Isabel Pelaez [facility] Note Date/Time September 05, 2024 12: 36am [facility] Medical Records Department [address] [place] [address] H&P Exam - Hospitalist 09/04/24 5473 MR#: [id number] Acct: [id number] Name: DOREEN DENISE Rep #:[id number] : 1960 64 From: Isabel Pelaez MD PCP: Care Physician,No Primary Status :ADM MARILEE Location: [place] [address] HPI - General General Date of Admission: 09/04/24 Date of Service: 09/04/24 Chief Complaint: Fatigue, weakness. HPI Narrative The patient is a 64 y/o F w/ PMHx: COPD, Diabetes mellitus type II, Tobacco use,Polysubstance abuse (methamphetamine/cocaine/cannabis), Personality disorder unclear specifics, HTN, Hx Endocarditis treated with IV antibiotic therapy only per patient report, Chronic normocytic anemia, recent history of enlarging mass in the left forearm of unclear specific significance with planned MRI at that time with follow-up with MRI obtained 07/29/2024 with a large and homogenously enhancing lobulated dermal mass measuring approximately 3.9 x 3.9 x 5.9 cm with significant mass effect of the subdermal tissue seen with a lesser effect on thesubadjacent tendons but no definitive extension into the subjacent musculature or tendons with most recent evaluation noted 07/04/[address] Cuba who presents to the [facility] ED on 09/04/2024 with history of feelingpoorly with general malaise for at least 1 month and prior to this ongoing fatigue over the last 4 to 5 months with increased recent 1 week history of polyuria, polydipsia with outpatient labs notable for elevated blood sugar of atleast 500 with physician recommendation to present to the ED for evaluation. She does states she is following with an oncologist and says that at the [facility] but it does not appear to be a local [facility] physician and it potentially is main campus but uncertain. She states she does have a history ofdiabetes but has not been taking any of her medications even having been in the past on insulin. She is noncompliant with her medications per several chart review histories. Workup in the ED included T98, heart rate 105, BP 109/70, respiratory rate 16, 93% room air, CBC with WC 11.3, he 1 10.7, MCV 83.1, platelet 245 with left shift, VBG with pH 7.49, bicarb 32, total CO2 34, O2 74% on room air, BMP with sodium 125, chloride 90, BUN/creatinine 14/0.67, GFR 96, glucose 388, unremarkable b-hydroxybutyric, urinalysis noted to be cloudy, specific gravity 1.010, protein 15, glucose 1000, ketone negative, occult blood 25 with no marked urine RBCs or WBCs. In the ED patient ministered 1 L normal saline as well as insulin lispro 14 units subcu x 1. PFSH Medical History History of pneumonia History of diabetes mellitus History of cancer Endocarditis port placement HTN (hypertension) DLBCL (diffuse large B cell lymphoma) Neck mass Diabetes COPD (chronic obstructive pulmonary disease) Tobacco use disorder History of personality disorder Allergy/AdvReac Type Severity Reaction Status Date / Time acetaminophen (From Vicodin) Allergy Severe Swelling Verified 09/04/24 22:10 hydrocodone bitartrate (From Allergy Severe Swelling Verified 09/04/24 22:10 Vicodin) Family History Mother Brain cancer Father Throat cancer Surgical History History of lymph node biopsy History of colonoscopy History of esophagogastroduodenoscopy (EGD) Status post myringotomy with insertion of tube History of section Social History household members: none Smoking Status: Light Smoker (<10/day) quit status: considering quitting alcohol intake: current alcohol intake frequency: holidays/special occasions only substance use type: other details: Methamphetamine/cocaine/cannabis noted previously. additional social history: pt admits to vaping, using marijuana use, edibles, aspirin and ibuprofen ROS ROS Narrative Admission Review of Systems: CONSTITUTIONAL: No weight loss, fever, chills, + weakness or fatigue. HEENT: Eyes: No visual loss, blurred vision, double vision or yellow sclerae. Ears, Nose, Throat: No hearing loss, sneezing, congestion, runny nose or sore throat. SKIN: No rash or itching, + significant left forearm lesion which has been growing for several months, following with plastic surgery and oncology, consistent with cancer. CARDIOVASCULAR: No chest pain, chest pressure or chest discomfort, palpitations,edema, orthopnea, syncopal events. RESPIRATORY: No shortness of breath, cough or sputum, wheezing, hemoptysis. GASTROINTESTINAL: + Decreased appetite. No nausea, vomiting or diarrhea, abdominal pain, melena, BRBPR. GENITOURINARY: No dysuria, frequency, urgency or retention. NEUROLOGICAL: No headache, dizziness, syncope, paralysis, ataxia, numbness or tingling in the extremities, focal weakness, change in bowel or bladder control,seizure. MUSCULOSKELETAL: + muscle, back pain, joint pain or stiffness. HEMATOLOGIC: + Chronic anemia. No specific history of easy bleeding or bruising. LYMPHATICS: No enlarged nodes. No history of splenectomy. PSYCHIATRIC: No history of depression or anxiety. ENDOCRINOLOGIC: No reports of sweating, cold or heat intolerance. + polyuria or polydipsia. ALLERGIES: No history of asthma, hives, eczema or rhinitis. Vital Signs Vital Signs Vital Signs: 09/04/24 22:10 09/04/24 22:27 Temperature 98 F Temperature Source Temporal Pulse Rate 105 H Respiratory Rate 16 Respiratory Effort Normal Non-Labored Blood Pressure 109/78 Blood Pressure Mean 88 Pulse Ox 93 Oxygen Delivery Method Room Air Weight Weight: 137 lb Body Mass Index (BMI) 21.4 Physical Exam Narrative Physical Examination: General: Awake, alert, oriented x 3 and cooperative, seated upright in the ED bed, very restless, high concern for possibility of substance abuse at this point. Skin: Normal color, normal turgor, no icterus, no cyanosis except for significant left forearm large fungating friable mass with odor. HEENT: AT/NC, EOMI, PERRLA, dry MM, poor oral care, no carotid bruits or JVD noted. Lungs: Mildly diminished, greater bases, appropriate effort, no rales, ronchi orwheezing. Heart: Mildly tachycardic with regular rhythm; no gallop, rub audible. Abdomen: Soft, NTTP, ND, hyperactive BS, no appreciated HSM. Extremities: No cyanosis, clubbing, or edema, see skin. Neurological: Patient awake, alert, oriented as noted, cognitive function suspect near baseline intact; pupils equally reactive to light and accommodation, cranial nerves gross normal, moving all 4 extremities, no focal deficits, strength moderately globally decreased Psychiatric: Affect appears fatigued otherwise normal, no acute evidence of depressive or anxiety feelings. Results Lab / Micro Data 09/04/24 22:35 09/04/24 22:35 Labs: Laboratory Results - last 24 hr 09/04/24 22:35: WBC 11.3 H, RBC 3.72 L, Hgb 10.7 L, Hct 30.9 L, MCV 83.1, MCH 28.8, MCHC 34.6, RDW Std Deviation 40.4, RDW Coeff of Devi 13.5, Plt Count 245, MPV 9.9, Immature Gran % (Auto) 0.500, Neut % (Auto) 78.4 H, Lymph % (Auto) 12.1L, [place] % (Auto) 6.7, Eos % (Auto) 2.1, Baso % (Auto) 0.2, Absolute Neuts (auto)8.9 H, Absolute Lymphs (auto) 1.37, Nucleated RBC % 0, Sodium 125 L, Potassium 4.6, Chloride 90 L, Carbon Dioxide 26.7, Anion Gap 9, BUN 14, Creatinine 0.68 L,Estim Creat Clear Calc 67.27, Est GFR (MDRD) Non-Af 96, BUN/Creatinine Ratio 20.1 H, Glucose 388 H, Calcium 8.6, b-Hydroxybutyric mmol/L 0.1 09/04/24 23:24: Urine Color Yellow, Urine Clarity Sl. Cloudy, Urine pH 7.0, Ur Specific [place] 1.010, Urine Protein 15 H, Urine Glucose (UA) 1000 H, Urine Ketones Negative, Urine Occult Blood 25 H, Urine Nitrite Negative, Urine Bilirubin Negative, Urine Urobilinogen Normal, Ur Leukocyte Esterase Negative, Urine RBC 0-5 SEEN, Urine WBC 0-5 SEEN, Ur Squamous Epith Cells 0 SEEN, Urine Bacteria 1+, Urine Mucus 0 SEEN ABG Data ABG results: ABG 09/04/24 23:06 Specimen Type ZONIA Sample Site Not entered VBG pH 7.49 H VBG pO2 36 VBG HCO3 32 H VBG Total CO2 34 H VBG O2 Sat (Calc) 74 H VBG Base Excess 9 H POC Mix VBG pCO2 Pt Tmp 42.5 O2 Delivery Device Room Air Assessment & Plan Assessment/Plan (1) Acute hyponatremia: PLAN: Plan The patient is a 64 y/o F w/ PMHx: COPD, Diabetes mellitus type II, Tobacco use,Polysubstance abuse (methamphetamine/cocaine/cannabis), Personality disorder unclear specifics, HTN, Hx Endocarditis treated with IV antibiotic therapy only per patient report, Chronic normocytic anemia, recent history of enlarging mass in the left forearm of unclear specific significance with planned MRI at that time with follow-up with MRI obtained 07/29/2024 with a large and homogenously enhancing lobulated dermal mass measuring approximately 3.9 x 3.9 x 5.9 cm with significant mass effect of the subdermal tissue seen with a lesser effect on thesubadjacent tendons but no definitive extension into the subjacent musculature or tendons with most recent evaluation noted 07/04/[address] visit [address] Dr. Cuba who presents to the [facility] ED on 09/04/2024 with history of feelingpoorly with general malaise for at least 1 month and prior to this ongoing fatigue over the last 4 to 5 months with increased recent 1 week history of polyuria, polydipsia with outpatient labs notable for elevated blood sugar of atleast 500 with physician recommendation to present to the ED for evaluation. #1. Fatigue, malaise, polyuria/polydipsia with adult failure to thrive, multifactorial as noted below in addition to Acute hyponatremia, hypochloremia, suspected in part secondary to hyperglycemia however also suspected hypovolemic component: Admission sodium 125, chloride 90, will initially given suspicion forhypovolemic component hydrate and trend CMP however if not correcting or concerns arise for alternate etiology will pursue further. #2. Diabetes mellitus type II with hyperglycemia, uncontrolled, currently untreated: Hydroxybutyrate negative, urinalysis with glucose but no ketones. Will obtain serum osmolality to be cautious in case of HHS. Currently not on any regimen but in the past had been on insulin. She does have a strong historyof noncompliance. Admission glucose elevated 388, will add low-dose twice dailylong-acting, will obtain hemoglobin A1c in the interim maintain on ADA diet, accu checks w/ ISS. #3. Left upper extremity mass, unclear exact significance: Patient is already set up and following with plastic surgery and reportedly [facility] oncology potentially at [facility] with recent MRI 07/29/2024 with a large and homogenously enhancing lobulated dermal mass measuring approximately 3.9 x 3.9 x5.9 cm with significant mass effect of the subdermal tissue seen with a lesser effect on the subadjacent tendons but no definitive extension into the subjacentmusculature or tendons, most recent evaluation per plastic surgery 07/04/2024 andper patient and daughter she does have upcoming follow-up with the surgeon again. Given she has follow-up already in place will defer any aggressive inpatient evaluation at this point. Mass is cancerous appearing. #4. History of polysubstance abuse per chart review with suspected ongoing polysubstance abuse: Urine drug screen requested and acute placed in order to beobtained in the ED, high suspicion especially based on behavior and lack of follow-up for ongoing at least methamphetamine usage. Case management consultedand awaiting UDS as noted. #5. Hx Diffuse Large B Cell Lymphoma: Most recent visit noted 08/13/[address] Loco oncology initially evaluated at [facility] for clinical trial however she was discovered mollified secondary to persistent methamphetamine abuse, started receiving R-CHOP at [facility] [place] with [place] reported poor compliance with imaging/treatment dates eventually receiving a total of 4 out of planned 6 cycles with remission achieved per PET/CT unfortunately disappearing from January2019 until July 2021 and no recent follow-up noted since but now reportedly following with Oncology potentially for her recent possible skin CA but uncertain. #6. Chart reported previous history of endocarditis: Most recent noted echocardiogram transesophageal 08/25/2020 with normal LV size, LV systolic function normal, estimated EF 60%, mobile mass measuring 2.5 cm x 1.8 cm with botanical attached to the atrial appendage, left atrium mildly enlarged. From review of records discharge summary 08/26/2020 patient had bacteremia with septic shock and endocarditis at that time transferred to [facility] with unclear interventions following. Records requested from tertiary facility to be certain but she reports she was only treated with prolonged course of IV antibiotic therapy. #7. Chronic normocytic anemia: Admission hemoglobin 10.7, MCV 83.1, baseline hemoglobin per review of records has vacillated and unfortunately patient is notbeen seen in some time, most recent previous to this 08/13/2021 hemoglobin 12.3 however previous to this had ranged 7-10, will continue to trend. #8. Hypertension: Per current list does not appear to be on regimen, clarified to be certain, PRN hydralazine in the interim. #9. Tobacco Abuse: Encouraged cessation, currently down to 2 cigarettes daily, inpatient consultation per RT, NR deferred given low amount currently using. #10. DVT prophylaxis: Lovenox. #11. CODE status: Patient does not have healthcare power of research attorney or living will in place but notes her daughter would be her medical decision-maker if necessary discussed CODE status at length including difference between FULL code, DNR-CCA and DNR-CC status. Following discussions about the differences in these status, requested Full Code status. Advanced Care Planning Face to Face Time: 16 minutes. Charges/Coding Visit Charges Inpatient E&M: 96223 Init Hosp L3 Procedures Hospitalists Procedures: 40112 Advncd Care Plan 30 Min 09/05/24 0036 <Electronically signed by Isabel Pelaez MD> Cosigner Signature (if applicable): CC: Dr. Isabel Pelaez MD; No Primary Care Physician~ Signed [facility] Work Phone: [phone]) [phone] Discharge summary Author Ramez Nuñez [facility] Note Date/Time September 04, 2024 11: 58pm [facility] Medical Records Department [address] [place] [address] Emergency Department Summary 09/04/24 MR#: [id number] Acct: [id number] Name: DOREEN DENISE Rep #:[id number] : 1960 64 From: Ramez Nuñez MD PCP: Care Physician,No Primary Status :REG ER Location: ED HPI History of Present Illness Chief Complaint: Hyperglycemia Informant: patient and family Narrative Narrative: 64-year-old female states that she has felt poorly for a month. This is worse than the generalized fatigue she has had for the last 4-5 months that she relates to skin cancer on her left forearm that she is seeing oncology for and in the process of getting worked up before having surgical management of it which is going to also involve plastics according to family. In the past several weeks at least, she has had polyuria and polydipsia, and she had some labs from oncology this morning as an outpatient, her blood sugar was over 500, which is why she is here as she was directed to come to the ER. She states she was diagnosed as a diabetic in the past, but she thought that she did not have it anymore, she states she used to be on insulin and no pills that she knows of, but she has no idea what dose she was on and she takes no medicines for diabetesand has not for a long time. [facility] Medical History History of pneumonia History of diabetes mellitus History of cancer Endocarditis port placement HTN (hypertension) DLBCL (diffuse large B cell lymphoma) Neck mass Diabetes COPD (chronic obstructive pulmonary disease) Tobacco use disorder History of personality disorder Home Medications ?Medication ?Instructions ?Recorded ?Last Taken ?Type albuterol sulfate 90 mcg/actuation 1 - 2 puff inhalati on Q4H PRN PRN 03/22/13 07/25/16 Rx aerosol inhaler Wheezing ##1 Allergy/AdvReac Type Severity Reaction Status Date / Time acetaminophen (From Vicodin) Allergy Severe Swelling Verified 09/04/24 22:10 hydrocodone bitartrate (From Allergy Severe Swelling Verified 09/04/24 22:10 Vicodin) Family History Mother Brain cancer Father Throat cancer Surgical History History of lymph node biopsy History of colonoscopy History of esophagogastroduodenoscopy (EGD) Status post myringotomy with insertion of tube History of section Social History Smoking Status: Light Smoker (<10/day) quit status: considering quitting additional social history: pt admits to vaping, using marijuana use, edibles, aspirin and ibuprofen ROS ROS ED Constitutional Constitutional ED: Reports chills, fatigue and malaise; Denies fever(s) Eyes Eyes: Denies change in vision or diplopia ENT ENT ED: Denies rhinorrhea or sore throat Cardiovascular Cardiovascular: Denies chest pain or palpitations Respiratory/Chest Respiratory/Chest: Denies cough or dyspnea Gastrointestinal Gastrointestinal: Denies abdominal pain, diarrhea, nausea or vomiting Genitourinary Genitourinary ED: Reports urinary frequency; Denies dysuria or hematuria Musculoskeletal Musculoskeletal: Denies back pain or neck pain Integumentary Reports other Details: Sore skin cancer lesion left forearm ; Denies abscess or rash Neurologic Neurologic: Denies headache(s), paresthesias or weakness Psychiatric Psychiatric: Denies anxiety or suicidal thoughts Endocrine Endocrinology: Reports polydipsia and polyuria EXAM Physical Exam Const Vital Signs: 09/04/24 22:10 09/04/24 22:27 Temperature 98 F Temperature Source Temporal Pulse Rate 105 H Respiratory Rate 16 Respiratory Effort Normal Non-Labored Blood Pressure 109/78 Blood Pressure Mean 88 Pulse Ox 93 Oxygen Delivery Method Room Air Positive well nourished and well developed Constitutional Narrative: Keenly alert conversive General Appearance ED: well developed and NAD HEENT Reports moist mucous membranes normocephalic and atraumatic Eyes PERRL and EOMs intact bilaterally Neck full ROM and supple Resp normal respiratory effort and clear to auscultation bilaterally Cardio regular rate, regular rhythm and no murmurs Rate: other Other Details: Mild tachycardia GI non-tender and non-distended Auscultation: normoactive bowel sounds Palpation: soft Back/Spine no CVA tenderness General Back: other FROM Extremity normal to inspection General Extremety ED: Negative for edema, pulses abnormal or tenderness General Extremity: Negative for edema or pulses abnormal Neuro oriented x3, CN's II-XII intact bilaterally and no sensory deficits noted Sensorium / Orientation: awake and alert Motor Exam: strength 5/5 throughout Psych Psych Narrative: Anxious and somewhat agitated but cooperative Skin Skin Narrative: 6-7 cm long fungating exophytic skin growth dorsal left forearm, oozing small amount of blood, no signs of active infection or purulent discharge/abscess. All compartment soft and nondistended. MDM MDM MDM Narrative Medical decision making narrative: Give the patient a liter of fluids while we ran some labs since they were not done at this hospital and I do not have access to her outpatient labs done earlier today. Her blood sugar is in the high 300s, but I am more concerned about her sodium that is 125. She is symptomatic from this feeling very weak. I do not know how long it has been low. I think she would benefit from an inpatient observation so that we can replace it overnight hopefully. Her beta hydroxybutyrate is negative and her pH is actually a little on the high side at 7.49, ruling out DKA. She has no idea what kind of diabetic she is, she thoughtshe grew out of it and the EMR states that she has a history of type 2 diabetes making DKA less likely. Urinalysis negative for infection just positive for glycosuria. Discussed with hospitalist. Lab Data Attestation: I reviewed the patient's lab results. Labs: Laboratory Results - last 24 hr 09/04/24 09/04/24 22:35 23:24 WBC 11.3 H RBC 3.72 L Hgb 10.7 L Hct 30.9 L MCV 83.1 MCH 28.8 MCHC 34.6 RDW Std Deviation 40.4 RDW Coeff of Devi 13.5 Plt Count 245 MPV 9.9 Immature Gran % (Auto) 0.500 Neut % (Auto) 78.4 H Lymph % (Auto) 12.1 L [place] % (Auto) 6.7 Eos % (Auto) 2.1 Baso % (Auto) 0.2 Absolute Neuts (auto) 8.9 H Absolute Lymphs (auto) 1.37 Nucleated RBC % 0 Sodium 125 L Potassium 4.6 Chloride 90 L Carbon Dioxide 26.7 Anion Gap 9 BUN 14 Creatinine 0.68 L Estim Creat Clear Calc 67.27 Est GFR (MDRD) Non-Af 96 BUN/Creatinine Ratio 20.1 H Glucose 388 H Calcium 8.6 b-Hydroxybutyric mmol/L 0.1 Urine Color Yellow Urine Clarity Sl. Cloudy Urine pH 7.0 Ur Specific [place] 1.010 Urine Protein 15 H Urine Glucose (UA) 1000 H Urine Ketones Negative Urine Occult Blood 25 H Urine Nitrite Negative Urine Bilirubin Negative Urine Urobilinogen Normal Ur Leukocyte Esterase Negative Urine RBC 0-5 SEEN Urine WBC 0-5 SEEN Ur Squamous Epith Cells 0 SEEN Urine Bacteria 1+ Urine Mucus 0 SEEN ABG Data ABG results: ABG 09/04/24 23:06 Specimen Type ZONIA Sample Site Not entered VBG pH 7.49 H VBG pO2 36 VBG HCO3 32 H VBG Total CO2 34 H VBG O2 Sat (Calc) 74 H VBG Base Excess 9 H POC Mix VBG pCO2 Pt Tmp 42.5 O2 Delivery Device Room Air Management Discussion w/another healthcare provider: Hospitalist Discharge Plan Dx/Rx/DC Orders Clinical Impression: Acute hyponatremia, Poor compliance with medication, Neoplasm of uncertain behavior of skin, Uncontrolled type 2 diabetes mellitus with hyperglycemia Disposition Disposition: Acute Care Hospital [facility] What to do if you have Problems For any increased pain, shortness of breath, bleeding, nausea or vomiting, chestpain, or any unexpected problems, contact your Primary Care Provider. Call [facility] ([phone]) or report to the closest Emergency Room. Call 911 if necessary. 09/04/242357 <Electronically signed by Ramez Nuñez MD> Cosigner Signature (if applicable): CC: No Primary Care Physician ~ Signed [facility] Work Phone: [phone] [phone] History and physical note [facility] Medical Records Department [address] [place] [address] H&P Exam - Hospitalist 09/04/242353 MR#: [id number] Acct: [id number] Name: DOREEN DENISE Rep #:[id number] : 1960 64 From: Isabel Pelaez MD PCP: Care Physician,No Primary Status :ADM MARILEE Location: [place] [address] HPI - General General Date of Admission: 09/04/24 Date of Service: 09/04/24 Chief Complaint: Fatigue, weakness. HPI Narrative The patient is a 64 y/o F w/ PMHx: COPD, Diabetes mellitus type II, Tobacco use,Polysubstance abuse(methamphetamine/cocaine/cannabis), Personality disorder unclear specifics, HTN, Hx Endocarditis treated with IV antibiotic therapy only per patient report, Chronic normocytic anemia, recent history of enlarging mass in the left forearm of unclear specific significance with planned MRI at that timewith follow-up with MRI obtained 07/29/2024 with a large and homogenously enhancing lobulated dermal mass measuring approximately 3.9 x 3.9 x 5.9 cm with significant mass effect of the subdermal tissueseen with a lesser effect on thesubadjacent tendons but no definitive extension into the subjacent m usculature or tendons with most recent evaluation noted 07/04/[address] Dr[address] Cuba who presents to the [facility] ED on 09/04/2024 with history of feelingpoorly with general malaise forat least 1 month and prior to this ongoing fatigue over the last 4 to 5 months with increased recent 1 week history of polyuria, polydipsia with outpatient labs notable for elevated blood sugar of atleast 500 with physician recommendation to present to the ED for evaluation. She does states she is following with an oncologist and says that at the [facility] but it does not appear to be a local [place] physician and it potentially is main campus but uncertain. She states she does have a history ofdiabetes but has not been taking any of her medications even having been in the past on insulin. She is noncompliant with her medications per several chart review histories. Workup in the ED included T98, heart rate 105, BP 109/70, respiratory rate 16, 93% room air, CBC with WC 11.3, he 1 10.7, MCV 83.1, platelet 245 with left shift, VBG with pH 7.49, bicarb 32, total CO2 34, O2 74% on room air, BMP with sodium 125, chloride 90, BUN/creatinine 14/0.67, GFR 96, glucose 388, unremarkable b-hydroxybutyric, urinalysis noted to be cloudy, specific gravity 1.010, protein 15, glucose 1000, ketone negative, occult blood 25 with no marked urine RBCs or WBCs. In the ED patient ministered 1 L normal saline as well as insulin lispro 14 units subcu x 1. [facility] Medical History History of pneumonia History of diabetes mellitus History of cancer Endocarditis port placement HTN (hypertension) DLBCL (diffuse large B cell lymphoma) Neck mass Diabetes COPD (chronic obstructive pulmonary disease) Tobacco use disorder History of personality disorder Allergy/AdvReac Type Severity Reaction Status Date / Time acetaminophen (From Vicodin) Allergy Severe Swelling Verified 09/04/24 22:10 hydrocodone bitartrate (From Allergy Severe Swelling Verified 09/04/24 22:10 Vicodin) Family History Mother Brain cancer Father Throat cancer Surgical History History of lymph node biopsy History of colonoscopy History of esophagogastroduodenoscopy (EGD) Status post myringotomy with insertion of tube History of section Social History household members: none Smoking Status: Light Smoker (<10/day) quit status: considering quitting alcohol intake: current alcohol intake frequency: holidays/special occasions only substance use type: other details: Methamphetamine/cocaine/cannabis noted previously. additional social history: pt admits to vaping, using marijuana use, edibles, aspirin and ibuprofen ROS ROS Narrative Admission Review of Systems: CONSTITUTIONAL: No weight loss, fever, chills, + weakness or fatigue. HEENT: Eyes: No visual loss, blurred vision, double vision or yellow sclerae. Ears, Nose, Throat: No hearing loss, sneezing, congestion, runny nose or sore throat. SKIN: No rash or itching, + significant left forearm lesion which has been growing for several months, following with plastic surgery and oncology, consistent with cancer. CARDIOVASCULAR: No chest pain, chest pressure or chest discomfort, palpitations,edema, orthopnea, syncopal events. RESPIRATORY: No shortness of breath, cough or sputum, wheezing, hemoptysis. GASTROINTESTINAL: + Decreased appetite. No nausea, vomiting or diarrhea, abdominal pain, melena, BRBPR. GENITOURINARY: No dysuria, frequency, urgency or retention. NEUROLOGICAL: No headache, dizziness, syncope, paralysis, ataxia, numbness or tingling in the extremities, focal weakness, change in bowel or bladder control,seizure. MUSCULOSKELETAL: + muscle, back pain, joint pain or stiffness. HEMATOLOGIC: + Chronic anemia. No specific history of easy bleeding or bruising. LYMPHATICS: No enlarged nodes. No history of splenectomy. PSYCHIATRIC: No history of depression or anxiety. ENDOCRINOLOGIC: No reports of sweating, cold or heat intolerance. + polyuria or polydipsia. ALLERGIES: No history of asthma, hives, eczema or rhinitis. Vital Signs Vital Signs Vital Signs: 09/04/24 22:10 09/04/24 22:27 Temperature 98 F Temperature Source Temporal Pulse Rate 105 H Respiratory Rate 16 Respiratory Effort Normal Non-Labored Blood Pressure 109/78 Blood Pressure Mean 88 Pulse Ox 93 Oxygen Delivery Method Room Air Weight Weight: 137 lb Body Mass Index (BMI) 21.4 Physical Exam Narrative Physical Examination: General: Awake, alert, oriented x 3 and cooperative, seated upright in the ED bed, very restless, high concern for possibility of substance abuse at this point. Skin: Normal color, normal turgor, no icterus, no cyanosis except for significant left forearm large fungating friable mass with odor. HEENT: AT/NC, EOMI, PERRLA, dry MM, poor oral care, no carotid bruits or JVD noted. Lungs: Mildly diminished, greater bases, appropriate effort, no rales, ronchi orwheezing. Heart: Mildly tachycardic with regular rhythm; no gallop, rub audible. Abdomen: Soft, NTTP, ND, hyperactive BS, no appreciated HSM. Extremities: No cyanosis, clubbing, or edema, see skin. Neurological: Patient awake, alert, oriented as noted, cognitive function suspect near baseline intact; pupils equally reactive to light and accommodation, cranial nerves gross normal, moving all 4 extremities, no focal deficits, strength moderately globally decreased Psychiatric: Affect appears fatigued otherwise normal, no acute evidence of depressive or anxiety feelings. Results Lab / Micro Data 09/04/24 22:35 09/04/24 22:35 Labs: Laboratory Results - last 24 hr 09/04/24 22:35: WBC 11.3 H, RBC 3.72 L, Hgb 10.7 L, Hct 30.9 L, MCV 83.1, MCH 28.8, MCHC 34.6, RDW Std Deviation 40.4, RDW Coeff of Devi 13.5, Plt Count 245, MPV 9.9, Immature Gran % (Auto) 0.500, Neut % (Auto) 78.4 H, Lymph % (Auto) 12.1L, [place] % (Auto) 6.7, Eos % (Auto) 2.1, Baso % (Auto) 0.2, Absolute Neuts (auto)8.9 H, Absolute Lymphs (auto) 1.37, Nucleated RBC % 0, Sodium 125 L, Potassium 4.6, Chloride 90 L, Carbon Dioxide 26.7, Anion Gap 9, BUN 14, Creatinine 0.68 L,Estim Creat Clear Calc 67.27, Est GFR (MDRD) Non-Af 96, BUN/Creatinine Ratio 20.1 H, Glucose 388 H, Calcium 8.6, b-Hydroxybutyric mmol/L 0.1 09/04/24 23:24: Urine Color Yellow, Urine Clarity Sl. Cloudy, Urine pH 7.0, Ur Specific [place] 1.010, Urine Protein 15 H, Urine Glucose (UA) 1000 H, Urine Ketones Negative, Urine Occult Blood 25 H, Urine Nitrite Negative, Urine Bilirubin Negative, Urine Urobilinogen Normal, Ur Leukocyte Esterase Negative, Urine RBC 0-5 SEEN, Urine WBC 0-5 SEEN, Ur Squamous Epith Cells 0 SEEN, Urine Bacteria 1+, Urine Mucus 0 SEEN ABG Data ABG results: ABG 09/04/24 23:06 Specimen Type ZONIA Sample Site Not entered VBG pH 7.49 H VBG pO2 36 VBG HCO3 32 H VBG Total CO2 34 H VBG O2 Sat (Calc) 74 H VBG Base Excess 9 H POC Mix VBG pCO2 Pt Tmp 42.5 O2 Delivery Device Room Air Assessment & Plan Assessment/Plan (1) Acute hyponatremia: PLAN: Plan The patient is a 64 y/o F w/ PMHx: COPD, Diabetes mellitus type II, Tobacco use,Polysubstance abuse(methamphetamine/cocaine/cannabis), Personality disorder unclear specifics, HTN, Hx Endocarditis treated with IV antibiotic therapy only per patient report, Chronic normocytic anemia, recent history of enlarging mass in the left forearm of unclear specific significance with planned MRI at that timewith follow-up with MRI obtained 07/29/2024 with a large and homogenously enhancing lobulated dermal mass measuring approximately 3.9 x 3.9 x 5.9 cm with significant mass effect of the subdermal tissueseen with a lesser effect on thesubadjacent tendons but no definitive extension into the subjacent m usculature or tendons with most recent evaluation noted 07/04/[address] visit [address] Dr[address] Cuba who presents to the [facility] ED on 09/04/2024 with history of feelingpoorly with general malaise forat least 1 month and prior to this ongoing fatigue over the last 4 to 5 months with increased recent 1 week history of polyuria, polydipsia with outpatient labs notable for elevated blood sugar of atleast 500 with physician recommendation to present to the ED for evaluation. #1. Fatigue, malaise, polyuria/polydipsia with adult failure to thrive, multifactorial as noted below in addition to Acute hyponatremia, hypochloremia, suspected in part secondary to hyperglycemia however also suspected hypovolemic component: Admission sodium 125, chloride 90, will initially given suspicion forhypovolemic component hydrate and trend CMP however if not correcting or concerns arisefor alternate etiology will pursue further. #2. Diabetes mellitus type II with hyperglycemia, uncontrolled, currently untreated: Hydroxybutyrate negative, urinalysis with glucose but no ketones. Will obtain serum osmolality to be cautious in case of HHS. Currently not on any regimen but in the past had been on insulin. She does have a stronghistoryof noncompliance. Admission glucose elevated 388, will add low-dose twice dailylong-acting, will obtain hemoglobin A1c in the interim maintain on ADA diet, accu checks w/ ISS. #3. Left upper extremity mass, unclear exact significance: Patient is already set up and following with plastic surgery and reportedly [facility] with recentMRI 07/29/2024 with a large and homogenously enhancing lobulated dermal mass measuring approximately 3.9 x 3.9 x5.9 cm with significant mass effect of the subdermal tissue seen with a lesser effect on the subadjacent tendons but no definitive extension into the subjacentmusculature or tendons, most recent evaluation per plastic surgery 07/04/2024 andper patient and daughter she does have upcoming follow-up with the surgeon again. Given she has follow-up already in place will defer any aggressive inpatient evaluation at this point. Mass is cancerous appearing. #4. History of polysubstance abuse per chart review with suspected ongoing polysubstance abuse: Urine drug screen requested and acute placed in order to beobtained in the ED, high suspicion especially based on behavior and lack of follow-up for ongoing at least methamphetamine usage. Case management consultedand awaiting UDS as noted. #5. Hx Diffuse Large B Cell Lymphoma: Most recent visit noted 08/13/[address] Loco oncology initially evaluated at [facility] for clinical trial however she was discovered mollified secondary to persistent methamphetamine abuse, started receiving R-CHOP at [facility] [place] reported poor compliance with imaging/treatment dates eventually receiving a total of 4 out of planned 6 cycles with remission achieved per PET/CT unfortunately disappearing from January2019 until July 2021 and no recent follow-up noted since but now reportedly following with Oncology potentially for her recent possible skin CA but uncertain. #6. Chart reported previous history of endocarditis: Most recent noted echocardiogram transesophageal 08/25/2020 with normal LV size, LV systolic function normal, estimated EF 60%, mobile mass measuring 2.5 cm x 1.8 cm with botanical attached to the atrial appendage, left atrium mildly enlarged. From review of records discharge summary 08/26/2020 patient had bacteremia with septic shock and endocarditis at that time transferred to [facility] with unclear interventions following. Records requested from tertiary facility to be certain but she reports she was only treated with prolonged course of IV antibiotic therapy. #7. Chronic normocytic anemia: Admission hemoglobin 10.7, MCV 83.1, baseline hemoglobin per review of records has vacillated and unfortunately patient is notbeen seen in some time, most recent previous to this 08/13/2021 hemoglobin 12.3 however previous to this had ranged 7-10, will continue to trend. #8. Hypertension: Per current list does not appear to be on regimen, clarified to be certain, PRN hydralazine in the interim. #9. Tobacco Abuse: Encouraged cessation, currently down to 2 cigarettes daily, inpatient consultation per RT, NR deferred given low amount currently using. #10. DVT prophylaxis: Lovenox. #11. CODE status: Patient does not have healthcare power of research attorney or living will in place but notes her daughter would be her medical decision-maker if necessary discussed CODE status at length including difference between FULL code, DNR-CCA and DNR-CC status. Following discussions about the differences in these status, requested Full Code status. Advanced Care Planning Face to Face Time: 16 minutes. Charges/Coding Visit Charges Inpatient E&M: 96205 Init Hosp L3 Procedures Hospitalists Procedures: 66741 Advncd Care Plan 30 Min 09/05/24 0036 Cosigner Signature (if applicable): CC: Dr. Isabel Pelaez MD; No Primary Care Physician~ Signed [facility]03-18-2025 Discharge summary [facility] Medical Records Department [address] [place] [address] Emergency Department Summary 09/04/24 MR#: [id number] Acct: [id number] Name: DOREEN DENISE Rep #:[id number] : 1960 64 From: Ramez Nuñez MD PCP: Care Physician,No Primary Status :REG ER Location: ED HPI History of Present Illness Chief Complaint: Hyperglycemia Informant: patient and family Narrative Narrative: 64-year-old female states that she has felt poorly for a month. This is worse than the generalized fatigue she has had for the last 4-5 months that she relates to skin cancer on her left forearm thatshe is seeing oncology for and in the process of getting worked up before having surgical management of it which is going to also involve plastics according to family. In the past several weeks at least, she has had polyuria and polydipsia, and she had some labs from oncology this morning as an outpatient, her blood sugar was over 500, which is why she is here as she was directed to come to the ER. She states she was diagnosed as a diabetic in the past, but she thought that she did not have it a nymore, she states she used to be on insulin and no pills that she knows of, but she has no idea what dose she was on and she takes no medicines for diabetesand has not for a long time. [facility] Medical History History of pneumonia History of diabetes mellitus History of cancer Endocarditis port placement HTN (hypertension) DLBCL (diffuse large B cell lymphoma) Neck mass Diabetes COPD (chronic obstructive pulmonary disease) Tobacco use disorder History of personality disorder Home Medications ?Medication ?Instructions ?Recorded ?Last Taken ?Type albuterol sulfate 90 mcg/actuation 1 - 2 puff inhalati on Q4H PRN PRN 03/22/13 07/25/16 Rx aerosol inhaler Wheezing ##1 Allergy/AdvReac Type Severity Reaction Status Date / Time acetaminophen (From Vicodin) Allergy Severe Swelling Verified 09/04/24 22:10 hydrocodone bitartrate (From Allergy Severe Swelling Verified 09/04/24 22:10 Vicodin) Family History Mother Brain cancer Father Throat cancer Surgical History History of lymph node biopsy History of colonoscopy History of esophagogastroduodenoscopy (EGD) Status post myringotomy with insertion of tube History of section Social History Smoking Status: Light Smoker (<10/day) quit status: considering quitting additional social history: pt admits to vaping, using marijuana use, edibles, aspirin and ibuprofen ROS ROS ED Constitutional Constitutional ED: Reports chills, fatigue and malaise; Denies fever(s) Eyes Eyes: Denies change in vision or diplopia ENT ENT ED: Denies rhinorrhea or sore throat Cardiovascular Cardiovascular: Denies chest pain or palpitations Respiratory/Chest Respiratory/Chest: Denies cough or dyspnea Gastrointestinal Gastrointestinal: Denies abdominal pain, diarrhea, nausea or vomiting Genitourinary Genitourinary ED: Reports urinary frequency; Denies dysuria or hematuria Musculoskeletal Musculoskeletal: Denies back pain or neck pain Integumentary Reports other Details: Sore skin cancer lesion left forearm ; Denies abscess or rash Neurologic Neurologic: Denies headache(s), paresthesias or weakness Psychiatric Psychiatric: Denies anxiety or suicidal thoughts Endocrine Endocrinology: Reports polydipsia and polyuria EXAM Physical Exam Const Vital Signs: 09/04/24 22:10 09/04/24 22:27 Temperature 98 F Temperature Source Temporal Pulse Rate 105 H Respiratory Rate 16 Respiratory Effort Normal Non-Labored Blood Pressure 109/78 Blood Pressure Mean 88 Pulse Ox 93 Oxygen Delivery Method Room Air Positive well nourished and well developed Constitutional Narrative: Keenly alert conversive General Appearance ED: well developed and NAD HEENT Reports moist mucous membranes normocephalic and atraumatic Eyes PERRL and EOMs intact bilaterally Neck full ROM and supple Resp normal respiratory effort and clear to auscultation bilaterally Cardio regular rate, regular rhythm and no murmurs Rate: other Other Details: Mild tachycardia GI non-tender and non-distended Auscultation: normoactive bowel sounds Palpation: soft Back/Spine no CVA tenderness General Back: other FROM Extremity normal to inspection General Extremety ED: Negative for edema, pulses abnormal or tenderness General Extremity: Negative for edema or pulses abnormal Neuro oriented x3, CN's II-XII intact bilaterally and no sensory deficits noted Sensorium / Orientation: awake and alert Motor Exam: strength 5/5 throughout Psych Psych Narrative: Anxious and somewhat agitated but cooperative Skin Skin Narrative: 6-7 cm long fungating exophytic skin growth dorsal left forearm, oozing small amount of blood, no signs of active infection or purulent discharge/abscess. All compartment soft and nondistended. MDM MDM MDM Narrative Medical decision making narrative: Give the patient a liter of fluids while we ran some labs since they were not done at this hospitaland I do not have access to her outpatient labs done earlier today. Her blood sugar is in the high 300s, but I am more concerned about her sodium that is 125. She is symptomatic from this feeling very weak. I do not know how long it has been low. I think she would benefit from an inpatient observation so that we can replace it overnight hopefully. Her beta hydroxybutyrate is negative and her pH is actually a little on the high side at 7.49, ruling out DKA. She has no idea what kind of diabetic she is, she thoughtshe grew out of it and the EMR states that she has a history of type 2 diabetesmaking DKA less likely. Urinalysis negative for infection just positive for glycosuria. Discussed with hospitalist. Lab Data Attestation: I reviewed the patient's lab results. Labs: Laboratory Results - last 24 hr 09/04/24 09/04/24 22:35 23:24 WBC 11.3 H RBC 3.72 L Hgb 10.7 L Hct 30.9 L MCV 83.1 MCH 28.8 MCHC 34.6 RDW Std Deviation 40.4 RDW Coeff of Devi 13.5 Plt Count 245 MPV 9.9 Immature Gran % (Auto) 0.500 Neut % (Auto) 78.4 H Lymph % (Auto) 12.1 L [place] % (Auto) 6.7 Eos % (Auto) 2.1 Baso % (Auto) 0.2 Absolute Neuts (auto) 8.9 H Absolute Lymphs (auto) 1.37 Nucleated RBC % 0 Sodium 125 L Potassium 4.6 Chloride 90 L Carbon Dioxide 26.7 Anion Gap 9 BUN 14 Creatinine 0.68 L Estim Creat Clear Calc 67.27 Est GFR (MDRD) Non-Af 96 BUN/Creatinine Ratio 20.1 H Glucose 388 H Calcium 8.6 b-Hydroxybutyric mmol/L 0.1 Urine Color Yellow Urine Clarity Sl. Cloudy Urine pH 7.0 Ur Specific [place] 1.010 Urine Protein 15 H Urine Glucose (UA) 1000 H Urine Ketones Negative Urine Occult Blood 25 H Urine Nitrite Negative Urine Bilirubin Negative Urine Urobilinogen Normal Ur Leukocyte Esterase Negative Urine RBC 0-5 SEEN Urine WBC 0-5 SEEN Ur Squamous Epith Cells 0 SEEN Urine Bacteria 1+ Urine Mucus 0 SEEN ABG Data ABG results: ABG 09/04/24 23:06 Specimen Type ZONIA Sample Site Not entered VBG pH 7.49 H VBG pO2 36 VBG HCO3 32 H VBG Total CO2 34 H VBG O2 Sat (Calc) 74 H VBG Base Excess 9 H POC Mix VBG pCO2 Pt Tmp 42.5 O2 Delivery Device Room Air Management Discussion w/another healthcare provider: Hospitalist Discharge Plan Dx/Rx/DC Orders Clinical Impression: Acute hyponatremia, Poor compliance with medication, Neoplasm of uncertain behavior of skin, Uncontrolled type 2 diabetes mellitus with hyperglycemia Disposition Disposition: Acute Care Hospital [facility] What to do if you have Problems For any increased pain, shortness of breath, bleeding, nausea or vomiting, chestpain, or any unexpected problems, contact your Primary Care Provider. Call [facility] ([phone]) or report tothe closest Emergency Room. Call 911 if necessary. 09/04/24 1216 Cosigner Signature (if applicable): CC: No Primary Care Physician ~ Signed [facility]03-18-2025 Telephone encounter Note* Telephone Encounter - Calos Lemus MD - 09/04/2024 9:20 PM EDT Images from the original note were not included. [facility] [place] Department of Hematology and Oncology After Hours Documentation September 04, 2024, 9:20 PM Primary Care Physician: No primary care provider on file. Primary Epic Ambulatory Specialists/Oncologist: Dr. Sagastume Heme/onc diagnosis: cSCC left forearm Paged by lab regarding blood glucose of 513. Those labs were non fasting at 1:50 pm Called patient. She was sleeping. Discussed with her daughter Vipul. Patient has uncontrolled diabetes, used to have blood gludoe 300-600 in the past and took insulin as needed. For some reason, she took herself off insulin and decided to stop. Those numbers are not new or surprising. She says her blood glucose has always been around this range. She is at her baseline prior to sleeping. No abdominal pain, vomiting, dizziness, or change of mental status. Discussed that if any of those symptoms develop, she needs to go to the ED. Otherwise she needs to schedule an appointment with PCP or hospital unit coordinator as well. Vipul confirmed understanding of the plan. Calos Lemus MD Hematology and Oncology Fellow On-Call Pager: [phone] [facility] Work Phone: [phone] [phone] Miscellaneous Notes* Telephone Encounter - Calos Lemus MD - 09/04/2024 9:20 PM EDT Images from the original note were not included. [facility] Department of Hematology and Oncology After Hours Documentation September 04, 2024, 9:20 PM Primary Care Physician: No primary care provider on file. Primary Epic Ambulatory Specialists/Oncologist: Dr. Sagastume Heme/onc diagnosis: [facility] left forearm Paged by lab regarding blood glucose of 513. Those labs were non fasting at 1:50 pm Called patient. She was sleeping. Discussed with her daughter Vipul. Patient has uncontrolled diabetes, used to have blood gludoe 300-600 in the past and took insulin as needed. For some reason, she took herself off insulin and decided to stop. Those numbers are not new or surprising. She says her blood glucose has always been around this range. She is at her baseline prior to sleeping. No abdominal pain, vomiting, dizziness, or change of mental status. Discussed that if any of those symptoms develop, she needs to go to the ED. Otherwise she needs to schedule an appointment with PCP or hospital unit coordinator as well. Vipul confirmed understanding of the plan. Calos Lemus MD Hematology and Oncology Fellow On-Call Pager: [phone] documented in this encounterProtestant [facility]acon[facility]03-17-[facility]25 History of Present illness Narrative* Tiffanie Avila MD - 09/03/2024 3:30 PM EDT Orthopaedic Oncology Follow-Up Note I have communicated my name and active licensure. The patient's identity and physical location wereverified at the time of this visit. Either the patient or their legal help desk representative has been informed of the risks and benefits of -- and alternatives to -- treatment through a remote evaluation andconsents to proceed with the evaluation remotely. Portions of this note were copied and pasted, all were verified for accuracy and relevant updates added. Chief Complaint: left distal forearm mass Referring Physician: Interval Events: Doreen has seen Johana Sagastume and Enoch Paul and surgical resection has been recommended. Video visit with her and daughter today. No changes from prior. Down to smoking 2 cigarettes per day. History of Present Illness: Doreen Denise is a 64 year old year old female with a pmh of Non Hodgkin's lymphoma (see below), chronic back pain, COPD, type 2 diabetes, hypertension, drug abuse, lumbarradiculopathy, tobacco abuse who presents for evaluation of the above chief complaint. 4 months agomelly developed an atraumatic left forearm wound that has significantly grown in size over the past several months. She came in today to get this evaluated. She says it is nontender and nonpainful, occasionally uses yellowish fluid. Personal history of cancer: Non-Hodgkins Lymphoma, does not remember when she was diagnosed. Does not remember her oncologist or where they were located. Did chemotherapy in [place] about 5 years ago, said that she last saw heroncologist in February of 2024 and she was told that she was good. Night pain: No, no pain at all Unintentional weight loss: None Tobacco/nicotine/vape use (if yes, how much): Cigarettes 1/2 pack per day since teenage, marijuana,no vape, does not endorse any other recreational drug use History of diabetes (if yes, last A1c): Yes T2DM, no treatment, last A1c 3 years ago 10.8 Blood thinners (if yes, for what): None Work: Retired Support at home: Lives by herself out in [place], daughter lives across the road Review of Systems: Review of systems is positive for above. Other complete ROS is questioned and negative. PAST MEDICAL HISTORY Diagnosis Date Chronic bilateral low back pain with right-sided sciatica 03/17/2016 Chronic obstructive pulmonary disease (COPD) ([facility]) COPD, mild ([facility]) 03/17/2016 DDD (degenerative disc disease), lumbar 03/18/[address] Sorensen's notes Diabetes ([facility]) Drug abuse ([facility]) 03/23/2016 Tox screen 02/2016 showed high levels of methamphetamines and OARRS was neg for any prescription sources. Essential hypertension 05/01/2015 Radiculopathy, lumbar region 03/18/2016 Smoker 05/01/2015 Started around age 17 up to a PPD. Thoracic radiculopathy 03/18/2016 Uncontrolled type 2 diabetes mellitus without complication, with long-term current use of insulin 03/22/2016 PAST SURGICAL HISTORY Procedure Laterality Date ANESTH, SECTION BACK SURGERY HX MRSA ALLERGIES Allergen Reactions Codeine Rash Vicodin [Hydrocodon* Rash Current Outpatient Medications on File Prior to Visit Medication Sig hydrocortisone-acetic acid (VOSOL-HC) otic solution Use 3 Drops in the left ear twice daily. albuterol HFA (PROVENTIL HFA) 90 mcg/actuation inhaler Inhale 2 Puffs as instructed every 6 hours as needed. insulin glargine (BASAGLAR KWIKPEN U-100 INSULIN) 100 unit/mL (3 mL) inpn inject 60 units subcutaneously at bedtime insulin aspart U-100 (NOVOLOG FLEXPEN U-100 INSULIN) 100 unit/mL inpn Take 12 units before meals lisinopril (ZESTRIL, PRINIVIL) 5 mg tablet Take 1 tablet by mouth once daily. albuterol (PROVENTIL) 2.5 mg/0.5 mL nebulizer solution Use 0.5 mL via nebulizer every 6 hours as needed. Insulin [place], Disposable, (BD ULTRA-FINE NATY PEN NEEDLES) 32 gauge x 5/32 ndle Use one needle for each dose. 3/day. Type 2 DM insulin dependant. lancets (FREESTYLE LANCETS) 28 gauge misc Test blood sugar(s) 3 times daily. Dx: Type 2 DM - Uncontrolled E11.65 Insulin: Yes blood sugar diagnostic (FREESTYLE LITE STRIPS) test strip Test blood sugar(s) 3 times daily. Dx: Type 2 DM - Uncontrolled E11.65 Insulin: Yes Blood-Glucose Meter (FREESTYLE LITE METER) monitoring kit Freestyle LITE Meter Kit - Dx: Type 2 DM - Uncontrolled E11.65 aspirin, enteric coated 81 mg EC tablet Take 81 mg by mouth once daily. No current facility-administered medications on file prior to visit. No family history on file. Social History Tobacco Use Smoking status: Every Day Current packs/day: 0.50 Types: Cigarettes Smokeless tobacco: Never Substance Use Topics Alcohol use: No Drug use: No Comment: urine drug screen + amphetamines 03/17/16 No or limited physical exam performed today due to virtual nature of visit. Most recent physical exam copied below for clarity. Physical Examination: There were no vitals taken for this visit. General: alert, oriented, no acute distress HEENT: normocephalic, extraocular movements intact, mucous membranes moist/intact Cardiovascular: No lower extremity edema Pulmonary: normal respiratory effort and chest wall excursion Left forearm with approximately 3 x 3 cm fungating dorsal forearm mass no other obvious lesions No axillary lymphadenopathy AIN/PIN/ulnar intact Radial pulse 2+ Results Reviewed: Laboratory evaluation: Lab Results Component Value Date HBA1C 10.4 (H) 03/01/2018 HBA1C 12.1 (H) 04/15/2017 HBA1C 11.6 (H) 05/17/2016 Radiographic evaluation: MRI left arm 07/29: Heterogenous dorsal forearm mass approximately 3 x 3 cm XR left forearm/wrist 08/16: Evidence of dorsal forearm soft tissue mass, no acute findings of radius or ulna Impression: (C44.629) 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 All of the patients questions have been sought and answered. After discussion with the patient, I have recommended wide resection with staged reconstruction with the plastic surgery team following margin review. We have discussed the risks, benefits, and alternatives of this at length. We discussed that the risks of surgery include but are not limited to: bleeding, infection, neurovascular injury, DVT/PE, wound healing complications, local recurrence, poor cosmesis, persistent pain and stiffness, need for further surgeries or treatments, cardiopulmonary failure, stroke, and .We discussed that the risk of wound healing in particular was elevated in this case due to smoking status and diabetes. Alternatives to surgery were discussed and included radiation and systemic therapy. The perioperative management plan will include: 1. Blood management: 1g tranexamic acid 2. DVT prophylaxis: Early mobilization, mechanical compression devices, chemoprophylaxis not indicated 3. Antibiotics: ancef, doxy while vac in place 4. Disposition: to floor 5. Special considerations: Stage 1 - resection with vac placement - supine, hand table Stage 2 - plastic surgery reconstruction at 5-7 days post resection after margins finalized Plan: - smoking cessation consult placed - A1c ordered, endo consult placed for aggressive glucose management - will dixcuss recon with plastics - consented verbally today, will need pt signature in pre op - Surgery date TBD - return post op No follow-ups on file. These recommendations are being sent back to via Gone!/[employer] Senior Sharepoint Developer or Chart CCfor [facility] Providers. Orthopaedic Medical Decision Making (MDM) Complexity of problems: Illness posing threat to life or bodily function, Complexity of data: Independent interpretation of imaging, 2 unique test results reviewed, Risk: Decision on elective major surgery w/risk factors, Level of MDM: High (5) Tiffanie Avila MD Associate Staff, Orthopaedic Surgery Division of Musculoskeletal Oncology documented in this encounterProtestant Deaconess Hospital03-17-2025 NoteBu[facility]03-[facility] Telephone encounter Note* Telephone Encounter - Samreen Ann - 09/03/2024 12:26 PM EDT Scheduled 09/14 @ 1315 [facility]03-17-2025 Miscellaneous Notes* Telephone Encounter - Samreen Ann - 09/03/2024 12:26 PM EDT Scheduled 09/14 @ 1315 * Telephone Encounter - Jessica Mccartney RN - 08/31/2024 8:55 AM EDT FDG PET - ORDER Whole Body PET CT With DX CT/MR: No 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 Lymphoma dx Diagnosis: Cancer of skin of left forearm [C44.609] Additional Information/Imagin08-30-24 Rad Onc 01-13-25 Skin, left forearm, biopsy:- Squamous cell carcinoma, invasive and well differentiated. history of Non-Hodgkins Lymphoma treated 5 years ago now with well- differentiated squamous cell carcinoma of the left forearm s/p biopsy on 08/16/24, [id number]. 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 Is this request for a [place] PET scan appointment? Yes: Probation And Patrol Agent: Charlotte Pollock RN Requesting Person (Last Name, First Name): Charlotte Pollock RN Area Code + Phone/Pager: [phone], [phone] Who do we call to schedule this appointment? Patient Requesting Staff Dr. Enoch Paul Area Code + Phone/Pager: N/A PET Orders (A delay in scheduling will result if the orders are not present at time of review): Internal ADDITIONAL ACTION MAY BE REQUIRED IF PATIENTS OON INSURANCE OR SELF PAY COVERAGE HAS NOT BEEN CLEARED FOR REQUESTED APPOINTMENT. Scheduling: BRADY: As soon as insurance will allow-- needed to complete staging /treatment decisions What account will this PET appointment be linked to? P/F Type of PET: Oncology: Are there additional diagnostic CT scans required to be done at time of PET scan? No Is the request for a PET MR ? No What account will diagnostic testing appointment be linked to? N/A Will the patient need anesthesia? NO Send requests to P [facility] RE[facility] documented in this encounterProtestant [facility]acon[facility]03-14-2025 Telephone encounter Note * Telephone Encounter - Jessica Mccartney RN - 08/31/2024 8:55 AM EDT [facility] PET - ORDER Whole Body PET CT With DX CT/MR: No 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 Lymphoma dx Diagnosis: Cancer of skin of left forearm [C44.609] Additional Information/Imagin08-30-24 Rad Onc 01-13-25 Skin, left forearm, biopsy:- Squamous cell carcinoma, invasive and well differentiated. history of Non-Hodgkins Lymphoma treated 5 years ago now with well- differentiated squamous cell carcinoma of the left forearm s/p biopsy on 08/16/24, [id number]. Initial/Subsequent: Initial PET Imaging Protocol: Top Of Head To Toes Diagnostic Imaging Requested: No Is this a pretreatment and an initial PET scan: No - Schedule as requested Route to or Requested Scheduling Pool: P PET CEMENT BOAT AND BARGE LOADER Gael [facility] CLERICAL POOL([place]), Gael [facility]03-13-2025 History of Present illness Narrative* Johana Sagastume MD - 08/30/2024 1:00 PM EDT [facility] [place] [facility] Oncology Initial Consultation Note Patient name: Doreen Denise [facility] number: [id number] Primary Care Physician: No primary care provider on file. Date of service: August 30, 2024 Reason for consultation: [facility] left forearm Referring Physician: Dr. Tiffanie Avila Final recommendations will be communicated back to the requesting physician by way of the shared medical record. History of Present Illness: Ms. Denise is a 64 year old lady who is referred to Medical Oncology for an opinion regarding her cutaneous SCC of the arm. ONCOLOGIC HISTORY: 1. Late 2023 - first noticed left forearm wound, unrelated to injury or known trauma. Grew over past few months. 2. 07/29/2024 - imaging demonstrated 3 cm dorsal forearm mass, no evidence of bone invasion 3. 08/16/2024 - s/p bx of skin left forearm: SCC, invasive and well diff The patient was evaluated by Dr. Avila and referred to consider systemic therapy or RT. Today, she reports wanting surgery BRADY. She has increasing pain in area and has been taking Tylenol and ibuprofen like candy. Unable to sleep. Dropping items from left hand, thinks it's weaker than right. No numbness or tingling. 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 She was treated with 4 of 6 cycles RCHOP in [place] before lost to follow-up from 01/2019until 2021 where she was deemed in complete remission for 3 years. Also, DM2, HTN, COPD, active smoker. Lives near her daughter. Has 12 total children, one daughter . Youngest are twin daughters present for today's consult, who are both quite involved in their mother's care. Review Of Systems: All systems reviewed with pertinent positives and negatives as outlined in the HPI. Allergies: ALLERGIES Allergen Reactions Codeine Rash Vicodin [Hydrocodon* Rash Current Medications: Current Outpatient Medications on File Prior to Visit Medication Sig hydrocortisone-acetic acid (VOSOL-HC) otic solution Use 3 Drops in the left ear twice daily. albuterol HFA (PROVENTIL HFA) 90 mcg/actuation inhaler Inhale 2 Puffs as instructed every 6 hours as needed. insulin glargine (BASAGLAR KWIKPEN U-100 INSULIN) 100 unit/mL (3 mL) inpn inject 60 units subcutaneously at bedtime insulin aspart U-100 (NOVOLOG FLEXPEN U-100 INSULIN) 100 unit/mL inpn Take 12 units before meals lisinopril (ZESTRIL, PRINIVIL) 5 mg tablet Take 1 tablet by mouth once daily. albuterol (PROVENTIL) 2.5 mg/0.5 mL nebulizer solution Use 0.5 mL via nebulizer every 6 hours as needed. Insulin [place], Disposable, (BD ULTRA-FINE NATY PEN NEEDLES) 32 gauge x 5/32 ndle Use one needle for each dose. 3/day. Type 2 DM insulin dependant. lancets (FREESTYLE LANCETS) 28 gauge misc Test blood sugar(s) 3 times daily. Dx: Type 2 DM - Uncontrolled E11.65 Insulin: Yes blood sugar diagnostic (FREESTYLE LITE STRIPS) test strip Test blood sugar(s) 3 times daily. Dx: Type 2 DM - Uncontrolled E11.65 Insulin: Yes Blood-Glucose Meter (FREESTYLE LITE METER) monitoring kit Freestyle LITE Meter Kit - Dx: Type 2 DM - Uncontrolled E11.65 aspirin, enteric coated 81 mg EC tablet Take 81 mg by mouth once daily. No current facility-administered medications on file prior to visit. Past Medical History: PAST MEDICAL HISTORY Diagnosis Date Chronic bilateral low back pain with right-sided sciatica 03/17/2016 Chronic obstructive pulmonary disease (COPD) ([facility]) COPD, mild ([facility]) 03/17/2016 DDD (degenerative disc disease), lumbar 03/18/[address] Sorensen's notes Diabetes ([facility]) Drug abuse ([facility]) 03/23/2016 Tox screen 02/2016 showed high levels of methamphetamines and OARRS was neg for any prescription sources. Essential hypertension 05/01/2015 Radiculopathy, lumbar region 03/18/2016 Smoker 05/01/2015 Started around age 17 up to a PPD. Thoracic radiculopathy 03/18/2016 Uncontrolled type 2 diabetes mellitus without complication, with long-term current use of insulin 03/22/2016 PAST SURGICAL HISTORY Procedure Laterality Date ANESTH, SECTION BACK SURGERY HX MRSA Social History: Social History Tobacco Use Smoking status: Every Day Current packs/day: 0.50 Types: Cigarettes Smokeless tobacco: Never Substance Use Topics Alcohol use: No Drug use: No Comment: urine drug screen + amphetamines 03/17/16 Family History: No family history on file. PHYSICAL EXAM: ECOG Performance Score: 1 General Appearance: Uncomfortable-appearing female. Lying on exam table. Skin: Large exophytic appearing lesion left forearm with underlying skin discoloration. ENT: Oropharynx: MMM, nonerythematous, no lesions or exudates Lymph: No palpable cervical or supraclavicular ANTONELLA, no left axillary LN. Resp: comfortably breathing on RA CVS: Distal pulses intact and equal. Musculoskeletal: No obvious bony or joint abnl, no LE edema. 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 Neurologic: Oriented x 3, face symmetric. Gait normal, speech and thought process normal. Sensationintact. Labs: No recent labs available for review Radiologic Imaging: None for review. Impression and Plan: The patient is a 64 year old female with SCC skin of left distal forearm in setting of relative immunosuppression with history of NHL and uncontrolled diabetes who is referred for further evaluation and treatment. # cSCC - The above findings were reviewed with the patient. Etiology of the disease, expected natural history and treatment approach of patient's cancer also discussed in detail. - reviewed diagnosis of SCC skin in chronic wound of distal left forearm - the patient relatively immunosuppression, noting past history of DLBCL treated with RCHOP x 4 (ofplanned 6 cycles) in 2019, appears in continue CR. Will repeat labs today and reflex to peripheral flow if abnormal. - discussed complete staging with PET, ordered - reviewed treatment paradigms for this disease including SOC resection followed by RT, vs definitive RT, vs systemic therapy in form of immunotherapy. I am concerned with adherence to treatment necessary with systemic therapy, which is at least a year commitment, given her past history of drug abuse and non- adherence to cancer treatment with her lymphoma - there is also the possibility of a jeremy-adjuvant approach, with the administration of a few cyclesof immunotherapy followed by response-adapted resection or RT. - she is meeting with Dr. Paul today as well. We will review her imaging and discuss with Dr. Avila best course of treatment for her cancer. - will check basic labs # Cancer related pain - refer to Pall med - checking labs given copious amounts of Tylenol and NSAIDs I spent a total of 60 minutes on the date of the service which included preparing to see the patient, [id number] patient care, completing clinical documentation, obtaining and/or reviewing separately obtained history, performing a medically appropriate examination, counseling and educating the pat ient/family/caregiver, ordering medications, tests, or procedures, communicating with other HCPs (not separately reported), independently interpreting results (not separately reported), and communicating results to the patient/family/caregiver. documented in this encounterProtestant [facility]acon[facility]03-13-2025 NoteBucyrus [facility]03-13-2025 Telephone encounter Note* Telephone Encounter - Charlotte Pollock RN - 08/30/2024 11:47 AM EDT This form is used for MAIN CAMPUS APPOINTMENTS ONLY. Is this request for a [place] PET scan appointment? Yes: Probation And Patrol Agent: Charlotte Pollock RN Requesting Person (Last Name, First Name): Charlotte Pollock RN Area Code + Phone/Pager: [phone], [phone] Who do we call to schedule this appointment? Patient Requesting Staff Dr. Enoch Paul Area Code + Phone/Pager: N/A PET Orders (A delay in scheduling will result if the orders are not present at time of review): Internal ADDITIONAL ACTION MAY BE REQUIRED IF PATIENTS OON INSURANCE OR SELF PAY COVERAGE HAS NOT BEEN CLEARED FOR REQUESTED APPOINTMENT. Scheduling: BRADY: As soon as insurance will allow-- needed to complete staging /treatment decisions What account will this PET appointment be linked to? P/F Type of PET: Oncology: Are there additional diagnostic CT scans required to be done at time of PET scan? No Is the request for a PET MR ? No What account will diagnostic testing appointment be linked to? N/A Will the patient need anesthesia? NO Send requests to [facility] REVIEW [facility] Work Phone: [phone] NoteBucyrus Community Hospital03-13-2025 History of Present illness Narrative* Enoch Paul MD - 08/30/2024 9:15 AM EDT Images from the original note were not included. Radiation Oncology - New Patient/Consult Note PATIENT NAME: Doreen Denise PATIENT REQUESTING PROVIDER: Tiffanie Avila MD. DIAGNOSIS: 64 year old female with history of Non-Hodgkins Lymphoma treated 5 years ago now with well-differentiated squamous cell carcinoma of the left forearm s/p biopsy on 08/16/24, [id number]. HPI: 64 year old female who presents with above diagnosis, for an opinion regarding the role of radiation therapy in the management of the patient's disease. Final recommendations will be communicated back to the requesting physician by way of the shared medical record, or letter to requesting physician via US mail. Doreen Denise reports first noticing a raised lesion on the left forearm in 04/2024. It has progressively enlarged since that time. She reports a pulling sensation/tightness in the region that causesdiscomfort. She also states she has felt more fatigued recently and spends more time in bed. She isusually active and does house/yard work. Lives independently, but has daughters and other friends close by. Last 5 Encounter Wt Readings: Date: Wt: 08/30/2024 60.6 kg (133 lb 9.6 oz) 05/22/2022 63.5 kg (140 lb) 01/20/2022 63.5 kg (140 lb) 01/19/2021 63.5 kg (140 lb) 06/05/2018 82.1 kg (181 lb) FINAL DIAGNOSIS A. Skin, left forearm, biopsy: - Squamous cell carcinoma, invasive and well differentiated. B. Skin, left forearm, biopsy: - Squamous cell carcinoma, invasive and well differentiated. ALLERGIES Allergen Reactions Codeine Rash Vicodin [Hydrocodon* Rash Current Outpatient Medications on File Prior to Visit Medication Sig hydrocortisone-acetic acid (VOSOL-HC) otic solution Use 3 Drops in the left ear twice daily. albuterol HFA (PROVENTIL HFA) 90 mcg/actuation inhaler Inhale 2 Puffs as instructed every 6 hours as needed. insulin glargine (BASAGLAR KWIKPEN U-100 INSULIN) 100 unit/mL (3 mL) inpn inject 60 units subcutaneously at bedtime insulin aspart U-100 (NOVOLOG FLEXPEN U-100 INSULIN) 100 unit/mL inpn Take 12 units before meals lisinopril (ZESTRIL, PRINIVIL) 5 mg tablet Take 1 tablet by mouth once daily. albuterol (PROVENTIL) 2.5 mg/0.5 mL nebulizer solution Use 0.5 mL via nebulizer every 6 hours as needed. Insulin [place], Disposable, (BD ULTRA-FINE NATY PEN NEEDLES) 32 gauge x 5/32 ndle Use one needle for each dose. 3/day. Type 2 DM insulin dependant. lancets (FREESTYLE LANCETS) 28 gauge misc Test blood sugar(s) 3 times daily. Dx: Type 2 DM - Uncontrolled E11.65 Insulin: Yes blood sugar diagnostic (FREESTYLE LITE STRIPS) test strip Test blood sugar(s) 3 times daily. Dx: Type 2 DM - Uncontrolled . Insulin: Yes Blood-Glucose Meter (FREESTYLE LITE METER) monitoring kit Freestyle LITE Meter Kit - Dx: Type 2 DM - Uncontrolled E11. aspirin, enteric coated 81 mg EC tablet Take 81 mg by mouth once daily. No current facility-administered medications on file prior to visit. PAST MEDICAL HISTORY Diagnosis Date Chronic bilateral low back pain with right-sided sciatica 03/17/2016 Chronic obstructive pulmonary disease (COPD) ([facility]) COPD, mild ([facility]) 03/17/2016 DDD (degenerative disc disease), lumbar 03/18/[address] Sorensen's notes Diabetes ([facility]) Drug abuse ([facility]) 03/23/2016 Tox screen 02/2016 showed high levels of methamphetamines and OARRS was neg for any prescription sources. Essential hypertension 05/01/2015 Radiculopathy, lumbar region 03/18/2016 Smoker 05/01/2015 Started around age 17 up to a PPD. Thoracic radiculopathy 03/18/2016 Uncontrolled type 2 diabetes mellitus without complication, with long-term current use of insulin 03/22/2016 Prior radiation therapy, collagen vascular disease, or inflammatory bowel disease: No Any implanted or external electric devices? No status: Post-menopausal. PAST SURGICAL HISTORY Procedure Laterality Date ANESTH, SECTION BACK SURGERY HX MRSA No family history on file. Social History Tobacco Use Smoking status: Every Day Current packs/day: 0.50 Types: Cigarettes Smokeless tobacco: Never Substance Use Topics Alcohol use: No Drug use: No Comment: urine drug screen + amphetamines 03/17/16 COMPLETE REVIEW OF SYSTEMS: As noted in HPI PHYSICAL EXAM: VS: BP 109/68 (BP Site: Right Arm, BP Position: Sitting, BP Cuff Size: Regular Adult) Pulse 106 Temp 36.8 C (98.3 F) (Temporal) Resp 18 Wt 60.6 kg (133 lb 9.6 oz) SpO2 99% BMI 20.92 kg/m KPS: 80 General Appearance: Alert and oriented. No acute distress. HEENT: NCAT. Sclera anicteric. EOMI. Neck: Normal ROM. Chest: No respiratory distress. Musculoskeletal: No edema. Normal ROM in extremities. Neuro: Speech fluent. Gait normal. No focal deficits. Skin: 5cm x 3cm fungating lesion on left dorsal forearm surrounding erythema, no sattelite disease no palpable axillary LN RADIOLOGY/LABORATORY DATA: see HPI ASSESSMENT AND PLAN: Doreen Denise is a 64 year old female with history of Non- Hodgkins Lymphoma treated 5 years ago now with well-differentiated squamous cell carcinoma of the left forearm s/p bioipsy on 08/16/24. We discussed the diagnosis in detail with the patient and her daughters. We discussed the need for further staging scans to rule out metastases and will schedule a PET/CT. Assuming localized disease,we reviewed treatment options including upfront surgical resection, neoadjuvant immunotherapy followed by resection, and definitive RT. She has a strong preference to proceed immediately with surgery. We discussed the role of adjuvant RT, but anticipate there will be minimal benefit. Plan to see post-operatively to review final pathology and discuss need for adjuvant therapy. Raymundo Chase MD Radiation Oncology, PGY-4 STAFF NOTE: I have seen and examined the pt and agree with the documentation by the resident as above, which includes my personal edits. The natural history of her disease was discussed with her in detail. Imaging reviewed. Discussed operative and non operative management options. As it is a large lesions, starting with immunotherapy would be reasonable. However, she prefers surgery to have it removed. This is standard and quite reasonable. Sentinal LNB can be considered. Needs PET/CT to complete staging. Ordered and will be scheduled brady The indications, rationale, logistics, R/B/A/P involved in extremity radiotherapy were discussed with her. I will see her postop to review indications for RT but my hope is that it can be avoided. She is not very interested in it and while this is large, hopefully will not have additional risk factors. I will let Dr. Avila know about her preferences. She will see Dr. Sagastume to discuss immunotherapy as well. Electronically Signed Enoch Paul MD cc: Tiffanie Avila MD - [facility] Johana Sagastume MD - [facility] * Clary Brambila LPN - 08/30/2024 8:45 AM EDT Additional intake questions: Has the patient had fever, nausea, vomiting, diarrhea, constipation, fatigue for > 1 week? No Does the patient have a decreased appetite? No Does patient want to see a Headrig Sawyer? No (yes to any of above refer patient to schedulers for dietitian appointment) ) Does patient have any new or increased numbness or tingling of extremities? No Is patient interested in fertility information? No Does patient need any prescription refills? No Does patient have an advanced directive in place? No, Patient refused referral to Social Work or Resource Center Electronically Signed By: Clary Brambila LPN documented in this encounterProtestant Deaconess Hospital03-13-2025 NoteBu[facility]03-03-2025 Telephone encounter Note* Telephone Encounter - Jaida Morgan RN - 08/20/2024 3:33 PM EST Called and spoke to patient's daughter who manages her care with biopsy results- left forearm SCC. Email sent to hem onc/rad onc team, cancer answer line will reach out to schedule patient to discusstreatment plan. CT CAP scheduled on 09/04 (soonest insurance will permit). Can keep appointment withDrAylin Avila on 09/03 for now. Will cancel based on conversation with hem onc/rad onc. Patient's daughter expressed understanding, appreciated call. Jaida Morgan RN, BSN Nurse Coordinator Orthopaedic Oncology [facility]03-03-2025 Miscellaneous Notes* Telephone Encounter - Jaida Morgan RN - 08/20/2024 3:33 PM EST Called and spoke to patient's daughter who manages her care with biopsy results- left forearm SCC. Email sent to hem onc/rad onc team, cancer answer line will reach out to schedule patient to discusstreatment plan. CT CAP scheduled on 09/04 (soonest insurance will permit). Can keep appointment withDr. Avila on 09/03 for now. Will cancel based on conversation with hem onc/rad onc. Patient's daughter expressed understanding, appreciated call. Jaida Morgan RN, BSN Nurse Coordinator Orthopaedic Oncology documented in this encounterProtestant Deaconess Hospital02-27-2025 History of Present illness Narrative* Tiffanie Avila MD - 08/16/2024 11:00 AM EST Orthopaedic Oncology New Patient Evaluation Chief Complaint: left distal forearm mass Referring Physician: History of Present Illness: Doreen Denise is a 64 year old year old female with a pmh of Non Hodgkin's lymphoma (see below), chronic back pain, COPD, type 2 diabetes, hypertension, drug abuse, lumbarradiculopathy, tobacco abuse who presents for evaluation of the above chief complaint. 4 months agomelly developed an atraumatic left forearm wound that has significantly grown in size over the past several months. She came in today to get this evaluated. She says it is nontender and nonpainful, occasionally uses yellowish fluid. Personal history of cancer: Non-Hodgkins Lymphoma, does not remember when she was diagnosed. Does not remember her oncologist or where they were located. Did chemotherapy in [place] about 5 years ago, said that she last saw heroncologist in February of 2024 and she was told that she was good. Night pain: No, no pain at all Unintentional weight loss: None Tobacco/nicotine/vape use (if yes, how much): Cigarettes 1/2 pack per day since teenage, marijuana,no vape, does not endorse any other recreational drug use History of diabetes (if yes, last A1c): Yes T2DM, no treatment, last A1c 3 years ago 10.8 Blood thinners (if yes, for what): None Work: Retired Support at home: Lives by herself out in [place], daughter lives across the road Review of Systems: Review of systems is positive for above. Other complete ROS is questioned and negative. PAST MEDICAL HISTORY Diagnosis Date Chronic bilateral low back pain with right-sided sciatica 03/17/2016 Chronic obstructive pulmonary disease (COPD) ([facility]) COPD, mild ([facility]) 03/17/2016 DDD (degenerative disc disease), lumbar 03/18/[address] Sorensen's notes Diabetes ([facility]) Drug abuse ([facility]) 03/23/2016 Tox screen 02/2016 showed high levels of methamphetamines and OARRS was neg for any prescription sources. Essential hypertension 05/01/2015 Radiculopathy, lumbar region 03/18/2016 Smoker 05/01/2015 Started around age 17 up to a PPD. Thoracic radiculopathy 03/18/2016 Uncontrolled type 2 diabetes mellitus without complication, with long-term current use of insulin 03/22/2016 PAST SURGICAL HISTORY Procedure Laterality Date ANESTH, SECTION BACK SURGERY HX MRSA ALLERGIES Allergen Reactions Codeine Rash Vicodin [Hydrocodon* Rash Current Outpatient Medications on File Prior to Visit Medication Sig hydrocortisone-acetic acid (VOSOL-HC) otic solution Use 3 Drops in the left ear twice daily. albuterol HFA (PROVENTIL HFA) 90 mcg/actuation inhaler Inhale 2 Puffs as instructed every 6 hours as needed. insulin glargine (BASAGLAR KWIKPEN U-100 INSULIN) 100 unit/mL (3 mL) inpn inject 60 units subcutaneously at bedtime insulin aspart U-100 (NOVOLOG FLEXPEN U-100 INSULIN) 100 unit/mL inpn Take 12 units before meals lisinopril (ZESTRIL, PRINIVIL) 5 mg tablet Take 1 tablet by mouth once daily. albuterol (PROVENTIL) 2.5 mg/0.5 mL nebulizer solution Use 0.5 mL via nebulizer every 6 hours as needed. Insulin [place], Disposable, (BD ULTRA-FINE NATY PEN NEEDLES) 32 gauge x 5/32 ndle Use one needle for each dose. 3/day. Type 2 DM insulin dependant. lancets (FREESTYLE LANCETS) 28 gauge misc Test blood sugar(s) 3 times daily. Dx: Type 2 DM - Uncontrolled E11.65 Insulin: Yes blood sugar diagnostic (FREESTYLE LITE STRIPS) test strip Test blood sugar(s) 3 times daily. Dx: Type 2 DM - Uncontrolled E11.65 Insulin: Yes Blood-Glucose Meter (FREESTYLE LITE METER) monitoring kit Freestyle LITE Meter Kit - Dx: Type 2 DM - Uncontrolled E11.65 aspirin, enteric coated 81 mg EC tablet Take 81 mg by mouth once daily. No current facility-administered medications on file prior to visit. No family history on file. Social History Tobacco Use Smoking status: Every Day Current packs/day: 0.50 Types: Cigarettes Smokeless tobacco: Never Substance Use Topics Alcohol use: No Drug use: No Comment: urine drug screen + amphetamines 03/17/16 Physical Examination: There were no vitals taken for this visit. General: alert, oriented, no acute distress HEENT: normocephalic, extraocular movements intact, mucous membranes moist/intact Cardiovascular: No lower extremity edema Pulmonary: normal respiratory effort and chest wall excursion Left forearm with approximately 3 x 3 cm fungating dorsal forearm mass no other obvious lesions No axillary lymphadenopathy AIN/PIN/ulnar intact Radial pulse 2+ Results Reviewed: Laboratory evaluation: Lab Results Component Value Date HBA1C 10.4 (H) 03/01/2018 HBA1C 12.1 (H) 04/15/2017 HBA1C 11.6 (H) 05/17/2016 Radiographic evaluation: MRI left arm 07/29: Heterogenous dorsal forearm mass approximately 3 x 3 cm XR left forearm/wrist 08/16: Evidence of dorsal forearm soft tissue mass, no acute findings of radius or ulna Impression: (R22.32) Mass of left upper extremity (primary encounter diagnosis) I have discussed the differential diagnosis at length with the patient which includes sarcoma, lymphoma, squamous cell carcinoma. At this time, I have recommended punch biopsy which was performed today. All of their questions have been sought and answered. Plan: -- punch biopsy in clinic today - plan to follow-up in 2 to 3 weeks following results of pathology from punch biopsy performed today No follow-ups on file. These recommendations are being sent back to via facsShopogoliqe/Z[employer] Senior Sharepoint Developer or Chart CCfor [facility] Providers. Yaakov Quiroga MD PROCEDURE NOTE Risks/benefits/alternatives of core needle biopsy of the soft tissue mass were discussed with the patient. Written informed consent was signed in the electronic medical record. Specific risks discussed included bleeding, infection, neurovascular injury, hematoma, pain, wound healing complications and a sampling error. All questions were answered and she consented to proceed. The universal safety protocol checklist was utilized for this procedure. The patient was positioned supine and the fungating mass was prepped sterile with ChloraPrep alcohol based cleanser. The sterile drape was applied to create a sterile field, and sterile technique wasused throughout the procedure. The skin was anesthetized directly overlying the mass with 10 cc of 1% plain lidocaine. Adequate anesthesia was confirmed. A punch biopsy was used to take 4 cores. Two were sent in formalin, two fresh. 4 total cores were obtained from the left arm mass. Pressure was held on to the area until hemostasis was obtained. The skin was closed with abdorbable suture, the area was covered with soft dressing. The procedure was well-tolerated. The specimen was placed into formalin, labeled and sent by claim attorney directly to the anatomic pathology lab. Tiffanie Avila MD Associate Staff, Orthopaedic Surgery Division of Musculoskeletal Oncology ATTENDING PHYSICIAN NOTE I have personally interviewed and examined the patient. I agree with the findings in the above note. Suspect squamous cell carcinoma. Biopsy in clinic today. Will obtain CT C/A/P for staging. Will discuss results with skin team for systemic therapy +/- RT vs wide resection with reconstruction. Follow up 3 weeks. Tiffanie Avila MD Associate Staff, Orthopaedic Surgery Division of Musculoskeletal Oncology Orthopaedic Medical Decision Making (MDM) Complexity of problems: Illness posing threat to life or bodily function, Complexity of data: Independent interpretation of imaging, 2 unique test results reviewed, Risk: High risk of morbidity from testing/treatment, Level of MDM: High (5) [facility] History of Present illness Narrative* Teodoro Hernandez RT(R) - 08/16/2024 10:00 AM EST Radiology Service Progress Note PATIENT NAME: Doreen Denise DATE OF SERVICE: August 16, 2024 TIME: 11:29 AM PATIENT IDENTITY VERIFICATION COMPLETED USING TWO (2) IDENTIFIERS: Name and Date of confirmedby patient verbally. FALL SCREENING: Has the patient had 2 falls in the last year or 1 fall with injury or currently using an Ambulatory Assistive Device (Walker, Cane, Wheelchair, Crutches, etc.)? No PATIENT GENDER DATA: Assigned female at . status: : No status:NO. 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 This exposes the sensitive inner layer of the tooth and causes pain. If the cavity isn t treated, it will get bigger. It may enter the pulp and cause an infection or abscess in the bone at the root end (apex) of the tooth. An infection in the tooth is a much more serious problem than a cavity. If the tooth gets infected, you will need a root canal or the entire tooth taken out (extraction). The pain in your tooth may be made worse by eating sweets or drinking hot or cold beverages. It mayspread from the tooth to your ear or the area of your jaw on the same side. Home care Follow these tips when caring for yourself at home: Don't have sweets and hot and cold foods and drinks. Your tooth may be sensitive to changes in temperature. If your tooth is chipped or cracked, or if there is a large open cavity, put oil of cloves directlyon the tooth to relieve pain. You can buy oil of cloves at drugstores. Some pharmacies carry an umzc-tqt-twaurqw toothache kit. This contains a paste that you can put on the exposed tooth to make it less sensitive. Put a cold pack on your jaw over the sore area to help reduce pain. You may use nztg-lfr-nzzhwpy medicine to ease pain, unless another medicine was prescribed. If you have chronic liver or kidney disease, talk with your healthcare provider before using acetaminophen or ibuprofen. Also talk with your provider if you ve had a stomach ulcer or GI bleeding. If you have signs of an infection, you will be given an antibiotic. Take it as directed. Follow-up care Follow up with your dentist, or as advised. Your pain may go away with the treatment given today. But only a dentist can fully look at and treat this problem to prevent further tooth damage. Call 911 Call 911 if any of these occur: Difficulty swallowing or breathing Weakness or fainting Unusual drowsiness Headache or stiff neck When to seek medical advice Call your healthcare provider right away if any of these occur: Redness or swelling of the face Pain gets worse or spreads to your neck Fever of 100.4 F (38 C) or higher, or as directed by your healthcare provider Pus drains from the tooth or gum [id number] [employer]. [address] [place] [address]. All rights reserved. This information is not intended as a substitute for professional medical care. Always follow yourhealthcare professional's instructions. Follow Up Care 07/14/2024 17:45:02 With:Dental list Address: When:2-4 days [facility] 01-25-2025 Emergency department Discharge summary Discharge Instructions Thank you for allowing [facility] to assist you with your healthcare needs. The following is importantdischarge information regarding your hospital visit. Diagnosis from Today's Visit Dental caries What to Do Next Instructions from Your Care Team No qualifying data available. Post Acute Orders No qualifying data available. You Need to Schedule the Following Appointments Follow Up with Dental list When:Within 2-4 days Allergies Vicodin Hives codeine Rash, hives Medications Please ask your primary doctor or pharmacist before taking any other medication not listed, including over the counter drugs, herbal medications, vitamins and or supplements as they may interact withyour home medications. What How Much When Why Instructions Last Dose New acetaminophen-oxyCODONE (Percocet 5 mg-325 mg oral tablet) 1 tab(s) by mouth Every 6 hours as needed for for pain Dental caries Duration: 5 Days Printed Prescription New penicillin V potassium (penicillin V potassium 500 mg oral tablet) 1 tab(s) by mouth Four (4) times a day Duration: 10 Days Printed Prescription Unchanged acetaminophen (Tylenol) by mouth Please take this list to your next doctor s visit. Bring all medications you take, including over the counter medications, herbals and other supplements with you to your doctor s visit. Patients and families are reminded to discard old lists and to update any records with all medication providers or retail pharmacies. Education Materials Dental Cavity A dental cavity is a pit or crater in the surface of a tooth. This exposes the sensitive inner layer of the tooth and causes pain. If the cavity isn t treated, it will get bigger. It may enter the pulp and cause an infection or abscess in the bone at the root end (apex) of the tooth. An infection in the tooth is a much more serious problem than a cavity. If the tooth gets infected, you will need a root canal or the entire tooth taken out (extraction). The pain in your tooth may be made worse by eating sweets or drinking hot or cold beverages. It mayspread from the tooth to your ear or the area of your jaw on the same side. Home care Follow these tips when caring for yourself at home: Don't have sweets and hot and cold foods and drinks. Your tooth may be sensitive to changes in temperature. If your tooth is chipped or cracked, or if there is a large open cavity, put oil of cloves directlyon the tooth to relieve pain. You can buy oil of cloves at drugstores. Some pharmacies carry an krio-age-gpnumvr toothache kit. This contains a paste that you can put on the exposed tooth to make it less sensitive. Put a cold pack on your jaw over the sore area to help reduce pain. You may use bzbl-xug-lthvvvp medicine to ease pain, unless another medicine was prescribed. If you have chronic liver or kidney disease, talk with your healthcare provider before using acetaminophen or ibuprofen. Also talk with your provider if you ve had a stomach ulcer or GI bleeding. If you have signs of an infection, you will be given an antibiotic. Take it as directed. Follow-up care Follow up with your dentist, or as advised. Your pain may go away with the treatment given today. But only a dentist can fully look at and treat this problem to prevent further tooth damage. Call 911 Call 911 if any of these occur: Difficulty swallowing or breathing Weakness or fainting Unusual drowsiness Headache or stiff neck When to seek medical advice Call your healthcare provider right away if any of these occur: Redness or swelling of the face Pain gets worse or spreads to your neck Fever of 100.4 F (38 C) or higher, or as directed by your healthcare provider Pus drains from the tooth or gum [id number] [employer]. [address] [place] [address], [place] [address]. All rights reserved. This information is not intended as a substitute for professional medical care. Always follow yourhealthcare professional's instructions. Additional Information VACCINATE! IT SAVES LIVES! Members of the community who have not yet received the COVID-19 vaccine and would like to receive it can visit one of [facility] vaccine clinics. There are many vaccine clinic locations within the [facility]. For locations and available times, please visit www.gettheshot.coronavirus.[place].gov/. It is important to note that some COVID mobile vaccine clinics are held outdoors and may be canceled in rainy or stormy conditions. To learn more about pediatric vaccinations (ages 5-11), we invite you to visit the [facility] webpage. https://www.[facility].org/pages/2297-Ibekh-Rqmtwphbxxj-Mqukgncfgx-Entkx-Hjb stions.htmlTo learn more about the COVID-19 vaccine, we invite you to visit the CDC website for a list of frequently asked questions. https://www.cdc.gov/coronavirus/2019-ncov/vaccines/faq.html [facility] Patient Portal Access Instructions: Stay connected with your healthcare team and access your personal medical information anytime with the [facility] Patient Portal. If you would like a full copy of your medical records please contact the [facility] Medical Records Department Tuesday through Tuesday between 8a.m. and 4:30p.m. Please follow the directions below to access the portal: 1.Access the email account you provided upon registration to the hospital.2.Look for an invitation email from [facility].3.Open the email and access the invitation link: Accept Invitation to [facility]4.Fill in the required mcdonald to create your account. Sign into www.[employer] with your username and password that you created in the above steps to stay up to date. You can then view a summary of results, a summary of your visits, and the ability to download your summaries to your computer or send the information securely to a physician. Remember that your healthcare information is confidential, so carefully consider who you will allow to register on the [facility] Patient Portal for access to your information. You can also access the [facility] Patient Portal on the [employer] P[employer]. Simply click on Health Records under [employer] and then click on the [facility] logo. HOW TO SAFELY DISPOSE OF PRESCRIPTION MEDICATIONS Please use one of the following methods to safely dispose of your unused medications. 1.Use a drug disposal kit: the drug disposal pouch allows you to safely discard your old and unuseddrugs. Ask your nurse to give you one when you are discharged.2.Visit a local take-back location: Many local pharmacies and police departments have programs that collect old and unwanted prescriptiondrugs. Call your local pharmacy or go to http://Promise[employer]/2I6Pn1g to find one close to you.3.Make use of household items: Use cat litter or old coffee grounds to dispose medications if other options arenot available. Mix your drugs with these household products, seal them in an airtight container andthrow it into the garbage. Call [facility]: [phone] to be sure your drugs can be disposed of in this way. Some medicines may require a different approach.4.Never flush your medications down the toilet. IF YOU HAVE BEEN PRESCRIBED AN OPIOIDS FOR PAIN If you have been prescribed an opioid (such as hydrocodone, oxycodone or morphine), it is critical to understand the possible side effects and risks of opioid pain medications. Even when taken as directed, opioids can have several side effects including: Tolerance, meaning you might need to take more of a medication for the same pain relief. Nausea, vomiting and/or constipation. Sleepiness, dizziness, dry mouth, confusion, depression or itching. Physical dependence, meaning you have withdrawal symptoms when a medication is stopped ? this can develop within a few days. KNOW YOUR RESPONSIBILITIES It is important to know exactly how much and how often to take the opioid pain medications you are prescribed. Never take opioids in higher amounts or more often than prescribed. Do not combine opioids with alcohol or other drugs that cause drowsiness, such as benzodiazepines, also known as benzos,including diazepam and alprazolam, muscle relaxants or sleep aids. Never sell or share prescriptionopioids. This is illegal. Store opioids in a secure place and out of reach of others (including children, family, friends and visitors). The last page(s) of this document has been signed and retained as a CHART COPY Signatures Patient Education Materials Dental Cavity Medication Leaflets My discharge plan and instructions have been reviewed and explained to me and IHOWIE BRENDA L understand my current condition and have read and understand these discharge instructions. I have received a written copy of the plan/instructions. If I have questions, I am aware that I should contact my doctor. Patient/Travel Agent Signature: Date/Time: Relationship to Patient: Witness Name/Signature: [id number] Evaluation note* Diagnosis Onset Date Resolution Status Admit Date Neoplasm of uncertain behavi or of connective and other soft tissue acute July 04 1:07pm Neoplasm of uncertain behavi or of skin acute July 04 1:07pm Acute hyponatremia acute September 04, 2024 11:55pm Neoplasm of uncertain behavi or of skin acute September 04, 2024 11:55pm Uncontrolled type 2 diabetes mellitus with hyperglycemia acute [facility] 2024 11:55pm 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 A benign tumor is a growth that is not cancer. These remain in one place and tend to grow slowly. Benign tumors don t spread to other areas of the body and are rarely life-threatening. (Benign brain tumors are an exception. They can press on parts of the brain and cause serious problems.) Types of benign tumors found in different parts of the body: Breast. Cyst (fluid-filled sac) or adenoma (overgrowth of glandular tissue) Skin. Lipoma (overgrowth of fat cells) or sebaceous cyst (sac filled with skin oils and skin cells) Thyroid. Colloid nodule (an overgrowth of normal thyroid tissue) Colon. Polyps (out-pouching of the moist lining of the intestine) Lung. Granuloma (calcium deposits in an area of scarring) A malignant tumor is cancer. It will invade nearby tissues and can spread through the blood and lymph to other parts of the body. Types of cancer: Carcinoma. Grows in the lining of organs, like the skin, lungs, breast, colon and intestines. Sarcoma. Grows in bones and muscle tissues. Lymphoma. Grows in the lymph nodes and affects a type of white blood cell (lymphocytes). Leukemia. Grows in the bone marrow and affects white blood cells. Myeloma. Grows in the bone marrow and affects cells of the immune system. Treatment: Benign tumors can often be removed with surgery and usually do not grow back. Cancers are treated by surgery, chemotherapy, radiation, or a combination of these methods. Many tumors grow deep in the body and are only found after they cause symptoms or problems. See a healthcare provider right away if you notice any of these changes: A new lump or bump that's getting bigger Blood in your stool Unexpected weight loss (more than 10 pounds in less than 3 months) Fever or frequent colds or infections A skin sore that doesn t heal New lump in the breast or changes in the nipple or skin of your breast Indigestion or trouble swallowing A change in the look of a wart or mole Persistent cough, hoarseness, or bloody sputum Extreme tiredness that doesn't get better with sleep Unexplained pain that doesn't get better or respond to pain medicine White patches or sores in your mouth or on your tongue Changes in your ability to eat, urinate, or have a bowel movement Most problems are not caused by cancer, but they may still need to be treated. Only a healthcare provider can tell you if a change is cancer. [id number] [employer]. [address] [place] [address], [place] [address]. All rights reserved. This information is not intended as a substitute for professional medical care. Always follow yourhealthcare professional's instructions. Follow Up Care 04/30/2024 20:06:59 With:DAMIAN ADAMS JR, MD, Surgery Address: [address] [place] [address] [address] [place] [address]- [phone] When:2-4 days [facility] 11-11-2024 Note Discharge Instructions Thank you for allowing [facility] to assist you with your healthcare needs. The following is importantdischarge information regarding your hospital visit. Diagnosis from Today's Visit Abnormal skin growth What to Do Next Instructions from Your Care Team You are given the name of a surgeon to follow-up with to have this removed and further analyzed. Please call their office tomorrow No qualifying data available. Post Acute Orders No qualifying data available. You Need to Schedule the Following Appointments Follow Up with DAMIAN ADAMS JR, MD, Surgery When:Within 2-4 days Where:[address] [facility] [place] [address]- [phone] Allergies Vicodin Hives codeine Rash, hives Medications Please ask your primary doctor or pharmacist before taking any other medication not listed, including over the counter drugs, herbal medications, vitamins and or supplements as they may interact withyour home medications. What How Much When Why Instructions Last Dose Unchanged albuterol-ipratropium (Combivent Respimat CFC free 20 mcg-100 mcg/ inh inhalation aerosol) 1 puff(s) by inhalation Four (4) times a day COPD - Chronic obstructive pulmonary disease URTI - Viral upper respiratory tract infection with one puff albuterol Unchanged aspirin 81 Milligram by mouth Once a day Unchanged aspirin (aspirin 81 mg oral delayed release tablet) 1 tab(s) by mouth Once a day Unchanged insulin glargine (Basaglar KwikPen 100 units/ mL subcutaneous solution (NF)) 60 unit(s) Subcutaneous Daily at bedtime Unchanged levETIRAcetam (Keppra) Two (2) times a day Unchanged lidocaine topical (lidocaine 5% topical patch) 1 patch(es) Transdermal Every day If needed for pain remove patches after 12 hours Unchanged Misc Medication (short acting insulin) Unchanged naproxen (naproxen 250 mg oral tablet) 1 tab(s) by mouth Every 8 hours PRN pain Unchanged predniSONE (predniSONE 10 mg oral tablet) 3 by mouth Two (2) times a day COPD - Chronic obstructive pulmonary disease URTI - Viral upper respiratory tract infection 1st dose in am Unchanged rivaroxaban (Xarelto 15 mg oral tablet) 1 tab(s) by mouth Two (2) times a day Duration: 21 Days with food Please take this list to your next doctor s visit. Bring all medications you take, including over the counter medications, herbals and other supplements with you to your doctor s visit. Patients and families are reminded to discard old lists and to update any records with all medication providers or retail pharmacies. Education Materials Tumor, Uncertain Cause The body is constantly growing new cells to replace cells that wear out or are damaged in some way.A tumor occurs when cells of the body begin to grow abnormally and make more cells than needed. A benign tumor is a growth that is not cancer. These remain in one place and tend to grow slowly. Benign tumors don t spread to other areas of the body and are rarely life-threatening. (Benign brain tumors are an exception. They can press on parts of the brain and cause serious problems.) Types of benign tumors found in different parts of the body: Breast. Cyst (fluid-filled sac) or adenoma (overgrowth of glandular tissue) Skin. Lipoma (overgrowth of fat cells) or sebaceous cyst (sac filled with skin oils and skin cells) Thyroid. Colloid nodule (an overgrowth of normal thyroid tissue) Colon. Polyps (out-pouching of the moist lining of the intestine) Lung. Granuloma (calcium deposits in an area of scarring) A malignant tumor is cancer. It will invade nearby tissues and can spread through the blood and lymph to other parts of the body. Types of cancer: Carcinoma. Grows in the lining of organs, like the skin, lungs, breast, colon and intestines. Sarcoma. Grows in bones and muscle tissues. Lymphoma. Grows in the lymph nodes and affects a type of white blood cell (lymphocytes). Leukemia. Grows in the bone marrow and affects white blood cells. Myeloma. Grows in the bone marrow and affects cells of the immune system. Treatment: Benign tumors can often be removed with surgery and usually do not grow back. Cancers are treated by surgery, chemotherapy, radiation, or a combination of these methods. Many tumors grow deep in the body and are only found after they cause symptoms or problems. See a healthcare provider right away if you notice any of these changes: A new lump or bump that's getting bigger Blood in your stool Unexpected weight loss (more than 10 pounds in less than 3 months) Fever or frequent colds or infections A skin sore that doesn t heal New lump in the breast or changes in the nipple or skin of your breast Indigestion or trouble swallowing A change in the look of a wart or mole Persistent cough, hoarseness, or bloody sputum Extreme tiredness that doesn't get better with sleep Unexplained pain that doesn't get better or respond to pain medicine White patches or sores in your mouth or on your tongue Changes in your ability to eat, urinate, or have a bowel movement Most problems are not caused by cancer, but they may still need to be treated. Only a healthcare provider can tell you if a change is cancer. 4621-6941 [employer]. [address] [place] [address]. All rights reserved. This information is not intended as a substitute for professional medical care. Always follow yourhealthcare professional's instructions. Additional Information VACCINATE! IT SAVES LIVES! Members of the community who have not yet received the COVID-19 vaccine and would like to receive it can visit one of [facility] vaccine clinics. There are many vaccine clinic locations within the [facility]. For locations and available times, please visit [email or web address]/. It is important to note that some COVID mobile vaccine clinics are held outdoors and may be canceled in rainy or stormy conditions. To learn more about pediatric vaccinations (ages 5-11), we invite you to visit the [facility] webpage. https://www.[email or web address].org/pages/1179-Oxhme-Thqhngokhbg-Kmghzycbnx-Dujod-Hmd stions.htmlTo learn more about the COVID-19 vaccine, we invite you to visit the CDC website for a list of frequently asked questions. https://www.cdc.gov/coronavirus/2019-ncov/vaccines/faq.html [facility] Access Instructions: Stay connected with your healthcare team and access your personal medical information anytime with the [facility] Patient Portal. If you would like a full copy of your medical records please contact the [facility] Medical Records Department Tuesday through Tuesday between 8a.m. and 4:30p.m. Please follow the directions below to access the portal: 1.Access the email account you provided upon registration to the [facility].2.Look for an invitation email from [facility].3.Open the email and access the invitation link: Accept Invitation to [facility]4.Fill in the required mcdonald to create your account. Sign into www.[employer] with your username and password that you created in the above steps to stay up to date. You can then view a summary of results, a summary of your visits, and the ability to download your summaries to your computer or send the information securely to a physician. Remember that your healthcare information is confidential, so carefully consider who you will allow to register on the [facility] Patient Portal for access to your information. You can also access the [facility] Patient Portal on the [employer]ivo. Simply click on Health Records under [employer] and then click on the [facility] logo. HOW TO SAFELY DISPOSE OF PRESCRIPTION MEDICATIONS Please use one of the following methods to safely dispose of your unused medications. 1.Use a drug disposal kit: the drug disposal pouch allows you to safely discard your old and unuseddrugs. Ask your nurse to give you one when you are discharged.2.Visit a local take-back location: Many local pharmacies and police departments have programs that collect old and unwanted prescriptiondrugs. Call your local pharmacy or go to http://PromisePay.[employer]/9D6Rw2k to find one close to you.3.Make use of household items: Use cat litter or old coffee grounds to dispose medications if other options arenot available. Mix your drugs with these household products, seal them in an airtight container andthrow it into the garbage. Call [facility]: [phone] to be sure your drugs can be disposed of in this way. Some medicines may require a different approach.4.Never flush your medications down the toilet. IF YOU HAVE BEEN PRESCRIBED AN OPIOIDS FOR PAIN If you have been prescribed an opioid (such as hydrocodone, oxycodone or morphine), it is critical to understand the possible side effects and risks of opioid pain medications. Even when taken as directed, opioids can have several side effects including: Tolerance, meaning you might need to take more of a medication for the same pain relief. Nausea, vomiting and/or constipation. Sleepiness, dizziness, dry mouth, confusion, depression or itching. Physical dependence, meaning you have withdrawal symptoms when a medication is stopped ? this can develop within a few days. KNOW YOUR RESPONSIBILITIES It is important to know exactly how much and how often to take the opioid pain medications you are prescribed. Never take opioids in higher amounts or more often than prescribed. Do not combine opioids with alcohol or other drugs that cause drowsiness, such as benzodiazepines, also known as benzos,including diazepam and alprazolam, muscle relaxants or sleep aids. Never sell or share prescriptionopioids. This is illegal. Store opioids in a secure place and out of reach of others (including children, family, friends and visitors). The last page(s) of this document has been signed and retained as a CHART COPY Signatures Patient Education Materials Tumor, Uncertain Cause Medication Leaflets My discharge plan and instructions have been reviewed and explained to me and I,DOREEN DENISE understand my current condition and have read and understand these discharge instructions. I have received a written copy of the plan/instructions. If I have questions, I am aware that I should contact my doctor. 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 There are no broken bones. Most sprains take 3 to 6 weeks to heal. If it a severe sprain where the ligament is completely torn, it can take months to recover. Most knee sprains are treated with a splint, knee immobilizer brace, or elastic wrap for support. Severe sprains may rarely require surgery. Home care Stay off the injured leg as much as possible until you can walk on it without pain. If you have a lot of pain with walking, crutches or a walker may be prescribed. (These can be rented or purchased at many pharmacies and surgical or orthopedic supply stores). Follow your healthcare provider's advice about when to begin putting weight on that leg. Keep your leg elevated to reduce pain and swelling. When sleeping, place a pillow under the injuredleg. When sitting, support the injured leg so it is above heart level. This is very important during the first 48 hours. Apply an ice pack over the injured area for 15 to 20 minutes every 3 to 6 hours. You should do thisfor the first 24 to 48 hours. You can make an ice pack by filling a plastic bag that seals at the top with ice cubes and then wrapping it with a thin towel. Continue to use ice packs for relief of pain and swelling as needed. As the ice melts, be careful to avoid getting your wrap, splint, or cast wet. After 48 hours, apply heat (warm shower or warm bath) for 15 to 20 minutes several times a day,or alternate ice and heat. You can place the ice pack directly over the splint. If you have to weara ypuf-zmy-gfyf knee brace, you can open it to apply the ice pack, or heat, directly to the knee. Never put ice directly on the skin. Always wrap the ice in a towel or other type of cloth. You may use dgvv-zmp-czdnirs pain medicine to control pain, unless another pain medicine was prescribed. If you have chronic liver or kidney disease or ever had a stomach ulcer or gastrointestinal bleeding, talk with your healthcare provider before using these medicines. If you were given a splint, keep it completely dry at all times. Bathe with your splint out of the water, protected with 2 large plastic bags, sealed with rubber bands or tape at the top end. If a fiberglass splint gets wet, you can dry it with a language and literature division chair set to cool. If you have a nemi-iei-vtad knee brace, you can remove this to bathe, unless told otherwise. Follow-up care Follow up with your doctor as advised. Any X-rays you had today don t show any broken bones, breaks, or fractures. Sometimes fractures don t show up on the first X-ray. Bruises and sprains can sometimes hurt as much as a fracture. These injuries can take time to heal completely. If your symptoms don t improve or they get worse, talk with your doctor. You may need a repeat X-ray. If X-rays were taken, you will be told of any new findings that may affect your care. Call 911 Call 911 if you have: Shortness of breath Chest pain When to seek medical advice Call your healthcare provider right away if any of these occur: The splint or knee immobilizer brace becomes wet or soft The fiberglass cast or splint remains wet for more than 24 hours Pain or swelling increases The injured leg or toes become cold, blue, numb, or tingly 2052-[address] [employer] [place] [address]. All rights reserved. This information is not intended as a substitute for professional medical care. Always follow yourhealthcare professional's instructions. Follow Up Care 07/12/2022 22:28:07 With:RONEL HERNANDEZ MD Address: [address] [place] [address] [place] [address] [place] [address]- [phone] When:2-4 days [facility] 01-23-2023 Note Discharge Instructions Thank you for allowing [facility] to assist you with your healthcare needs. The following is importantdischarge information regarding your hospital visit. Diagnosis from Today's Visit Knee pain-swelling What to Do Next Instructions from Your Care Team No qualifying data available. Post Acute Orders No qualifying data available. You Need to Schedule the Following Appointments Follow Up with RONEL HERNANDEZ MD When Within 2-4 days Where: [address] [place] [address] [place] [address] [place] [address]- [phone] Allergies Vicodin (Hives) codeine (Rash, hives) Medications Please ask your primary doctor or pharmacist before taking any other medication not listed, including over the counter drugs, herbal medications, vitamins and or supplements as they may interact withyour home medications. What How Much When Why Instructions Last Dose Unchanged albuterol-ipratropium (Combivent Respimat CFC free 20 mcg-100 mcg/ inh inhalation aerosol) 1 puff(s) by inhalation Four (4) times a day COPD - Chronic obstructive pulmonary disease URTI - Viral upper respiratory tract infection with one puff albuterol Unchanged aspirin 81 Milligram by mouth Once a day Unchanged aspirin (aspirin 81 mg oral delayed release tablet) 1 tab(s) by mouth Once a day Unchanged insulin glargine (Basaglar KwikPen 100 units/ mL subcutaneous solution (NF)) 60 unit(s) Subcutaneous Daily at bedtime Unchanged levETIRAcetam (Keppra) Two (2) times a day Unchanged Misc Medication (short acting insulin) Unchanged predniSONE (predniSONE 10 mg oral tablet) 3 by mouth Two (2) times a day COPD - Chronic obstructive pulmonary disease URTI - Viral upper respiratory tract infection 1st dose in am Unchanged rivaroxaban (Xarelto 15 mg oral tablet) 1 tab(s) by mouth Two (2) times a day Duration: 21 Days with food Please take this list to your next doctor s visit. Bring all medications you take, including over the counter medications, herbals and other supplements with you to your doctor s visit. Patients and families are reminded to discard old lists and to update any records with all medication providers or retail pharmacies. Education Materials Knee Sprain A sprain is an injury to the ligaments or capsule that holds a joint together. There are no broken bones. Most sprains take 3 to 6 weeks to heal. If it a severe sprain where the ligament is completely torn, it can take months to recover. Most knee sprains are treated with a splint, knee immobilizer brace, or elastic wrap for support. Severe sprains may rarely require surgery. Home care Stay off the injured leg as much as possible until you can walk on it without pain. If you have a lot of pain with walking, crutches or a walker may be prescribed. (These can be rented or purchased at many pharmacies and surgical or orthopedic supply stores). Follow your healthcare provider's advice about when to begin putting weight on that leg. Keep your leg elevated to reduce pain and swelling. When sleeping, place a pillow under the injuredleg. When sitting, support the injured leg so it is above heart level. This is very important during the first 48 hours. Apply an ice pack over the injured area for 15 to 20 minutes every 3 to 6 hours. You should do thisfor the first 24 to 48 hours. You can make an ice pack by filling a plastic bag that seals at the top with ice cubes and then wrapping it with a thin towel. Continue to use ice packs for relief of pain and swelling as needed. As the ice melts, be careful to avoid getting your wrap, splint, or cast wet. After 48 hours, apply heat (warm shower or warm bath) for 15 to 20 minutes several times a day,or alternate ice and heat. You can place the ice pack directly over the splint. If you have to weara glji-zaf-ncbn knee brace, you can open it to apply the ice pack, or heat, directly to the knee. Never put ice directly on the skin. Always wrap the ice in a towel or other type of cloth. You may use vuic-zsr-wrchzwf pain medicine to control pain, unless another pain medicine was prescribed. If you have chronic liver or kidney disease or ever had a stomach ulcer or gastrointestinal bleeding, talk with your healthcare provider before using these medicines. If you were given a splint, keep it completely dry at all times. Bathe with your splint out of the water, protected with 2 large plastic bags, sealed with rubber bands or tape at the top end. If a fiberglass splint gets wet, you can dry it with a language and literature division chair set to cool. If you have a wssw-rnt-fqnp knee brace, you can remove this to bathe, unless told otherwise. Follow-up care Follow up with your doctor as advised. Any X-rays you had today don t show any broken bones, breaks, or fractures. Sometimes fractures don t show up on the first X-ray. Bruises and sprains can sometimes hurt as much as a fracture. These injuries can take time to heal completely. If your symptoms don t improve or they get worse, talk with your doctor. You may need a repeat X-ray. If X-rays were taken, you will be told of any new findings that may affect your care. Call 911 Call 911 if you have: Shortness of breath Chest pain When to seek medical advice Call your healthcare provider right away if any of these occur: The splint or knee immobilizer brace becomes wet or soft The fiberglass cast or splint remains wet for more than 24 hours Pain or swelling increases The injured leg or toes become cold, blue, numb, or tingly 4246-6085 [employer]. [address] [place] [address]. All rights reserved. This information is not intended as a substitute for professional medical care. Always follow yourhealthcare professional's instructions. Additional Information VACCINATE! IT SAVES LIVES! Members of the community who have not yet received the COVID-19 vaccine and would like to receive it can visit one of [facility] vaccine clinics. There are many vaccine clinic locations within the [facility]. For locations and available times, please visit [email or web address]. It is important to note that some COVID mobile vaccine clinics are held outdoors and may be canceled in rainy orstormy conditions. To learn more about pediatric vaccinations (ages 5-11), we invite you to visit the [facility] webpage. https://www.[email or web address]/pages/5455-Gpxbg-Ziqcspxkein-Abajmssngj-Dtakp-Gng stions.htmlTo learn more about the COVID-19 vaccine, we invite you to visit the [facility] website for a list of frequently asked questions. [email or web address]-kvy-Qxnfxuyn/welcg-Pzvojtt-Jdhcsgccuj _Asked-Questions.pdf [facility] Patient Portal Access Instructions: Stay connected with your healthcare team and access your personal medical information anytime with the [facility] Patient Portal. If you would like a full copy of your medical records please contact the [facility] Medical Records Department Tuesday through Tuesday between 8a.m. and 4:30p.m. Please follow the directions below to access the portal: 1.Access the email account you provided upon registration to the [facility].2.Look for an invitation email from [facility].3.Open the email and access the invitation link: Accept Invitation to [facility]4.Fill in the required mcdonald to create your account. Sign into www.[employer] with your username and password that you created in the above steps to stay up to date. You can then view a summary of results, a summary of your visits, and the ability to download your summaries to your computer or send the information securely to a physician. Remember that your healthcare information is confidential, so carefully consider who you will allow to register on the [facility] Patient Portal for access to your information. You can also access the [facility] Patient Portal on the [employer]. Simply click on Health Records under [employer] and then click on the [facility] [facility] logo. HOW TO SAFELY DISPOSE OF PRESCRIPTION MEDICATIONS Please use one of the following methods to safely dispose of your unused medications. 1.Use a drug disposal kit: the drug disposal pouch allows you to safely discard your old and unuseddrugs. Ask your nurse to give you one when you are discharged.2.Visit a local take-back location: Many local pharmacies and police departments have programs that collect old and unwanted prescriptiondrugs. Call your local pharmacy or go to http://PromisePay.[employer]/0V2Ja0r to find one close to you.3.Make use of household items: Use cat litter or old coffee grounds to dispose medications if other options arenot available. Mix your drugs with these household products, seal them in an airtight container andthrow it into the garbage. Call [facility]: [phone] to be sure your drugs can be disposed of in this way. Some medicines may require a different approach.4.Never flush your medications down the toilet. IF YOU HAVE BEEN PRESCRIBED AN OPIOIDS FOR PAIN If you have been prescribed an opioid (such as hydrocodone, oxycodone or morphine), it is critical to understand the possible side effects and risks of opioid pain medications. Even when taken as directed, opioids can have several side effects including: Tolerance, meaning you might need to take more of a medication for the same pain relief. Nausea, vomiting and/or constipation. Sleepiness, dizziness, dry mouth, confusion, depression or itching. Physical dependence, meaning you have withdrawal symptoms when a medication is stopped ? this can develop within a few days. KNOW YOUR RESPONSIBILITIES It is important to know exactly how much and how often to take the opioid pain medications you are prescribed. Never take opioids in higher amounts or more often than prescribed. Do not combine opioids with alcohol or other drugs that cause drowsiness, such as benzodiazepines, also known as benzos,including diazepam and alprazolam, muscle relaxants or sleep aids. Never sell or share prescriptionopioids. This is illegal. Store opioids in a secure place and out of reach of others (including children, family, friends and visitors). The last page(s) of this document has been signed and retained as a CHART COPY Signatures Patient Education Materials Knee Sprain Medication Leaflets My discharge plan and instructions have been reviewed and explained to me and I,DOREEN DENISE understand my current condition and have read and understand these discharge instructions. I have received a written copy of the plan/instructions. If I have questions, I am aware that I should contact my doctor. 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 HISTORY: ORDERING SYSTEM PROVIDED HISTORY: Reason for Exam: knee pain FINDINGS: No fracture or dislocation. No radiopaque foreign body. Fabella. Small joint fluid. 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 IMPRESSION: No fracture or dislocation. 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 Small joint fluid. Interpreted by: Duc Vásquez Preliminary Report By: Duc Vásquez Electronically signed By Duc Vásquez Dictated Date: 07/12/2022 10:53:06 PM Prelim Date: 07/12/2022 10:54:57 PM Sign Date: 07/12/2022 10:54:57 PM Ordering Provider: BI [place] [facility]01-23-2023 Note ORIGINAL EXAMINATION: THREE XRAY VIEWS OF THE LEFT KNEE 07/12/2022 10:52 pm COMPARISON: None. HISTORY: ORDERING SYSTEM PROVIDED HISTORY: Reason for Exam: knee pain FINDINGS: No fracture or dislocation. No radiopaque foreign body. Fabella. Small joint fluid. 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 IMPRESSION: No fracture or dislocation. 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 Small joint fluid. Interpreted by: Duc Vásquez Preliminary Report By: Duc Vásquez Electronically signed By Duc Vásquez Dictated Date: 07/12/2022 10:53:06 PM Prelim Date: 07/12/2022 10:54:57 PM Sign Date: 07/12/2022 10:54:57 PM Ordering Provider: BI [facility]11-07-2022 Hospital Discharge instructions Patient Education 04/26/2022 00:50:23 High Blood Sugar (Hyperglycemia) High Blood Sugar (Hyperglycemia) Too much sugar (glucose) in your blood is called high blood sugar (hyperglycemia). This can lead toa dangerous condition called ketoacidosis. In severe cases, it can lead to fluid loss (dehydration)and coma. Possible causes of high blood sugar Having a poor treatment plan for diabetes Being sick Being under stress Taking certain medicines, such as steroids Eating too much food, especially carbohydrates Being less active than normal Not taking enough diabetes medicine Symptoms of high blood sugar High blood sugar may not cause symptoms. If you do have symptoms, they may include: Thirst Frequent need to urinate Feeling tired or drowsy Nausea and vomiting Itchy, dry skin Blurry vision Fast breathing and breath that smells fruity Weakness Dizziness Wounds or skin infections that don t heal Unexplained weight loss if hyperglycemia lasts for more than a few days What to do Do the following: Check your blood sugar. Drink plenty of sugar-free, caffeine-free liquids such as water. Don t drink fruit juice. Check your blood sugar again every 4 hours. If you take insulin or diabetes medicines, follow your sick-day plan for taking medicine. Call your healthcare provider if you are not able to eat. Check your blood or urine for ketones as directed. Call your provider if your blood sugar and ketones don't go back to your target range. If the value is high, take your diabetes medicines as prescribed. And check your blood sugar more often. Doses of medicines such as insulin can be increased slightly if blood sugars stay high. But your provider must approve this. Preventing high blood sugar To help keep your blood sugar from getting too high: Control stress. When you're ill, follow your sick-day plan. Follow your meal plan. Eat only the amount of food on your meal plan. Stick to your exercise plan. Take your insulin or diabetes medicines as directed by your healthcare team. Also test your blood sugar as directed. If the plan is not working for you, discuss it with your healthcare provider. Other things to do Carry a medical ID card or a compact USB drive. Or wear a medical alert bracelet or necklace. It should say that you have diabetes. It should also say what to do in case you pass out or go into a coma. Make sure family, friends, and coworkers know the signs of high blood sugar. Tell them what to do if your blood sugar gets very high and you can t help yourself. Talk with your healthcare team about other things you can do to prevent high blood sugar. Special note: Drink plenty of sugar-free and caffeine-free liquids when you feel symptoms of hyperglycemia. Call your healthcare provider if you keep having episodes of high blood sugar. [id number] [employer]. [address] [place] [address]. All rights reserved. This information is not intended as a substitute for professional medical care. Always follow [facility] instructions. 04/26/2022 00:50:20 Hypertension, Established Established High Blood Pressure High blood pressure (hypertension) is a chronic disease. Often, healthcare providers don t know what causes it. But it can be caused by certain health conditions and medicines. If you have high blood pressure, you may not have any symptoms. If you do have symptoms, they may include headache, dizziness, changes in your vision, chest pain, and shortness of breath. But even without symptoms, high blood pressure that s not treated raises your risk for heart attack, heart failure, and stroke. High blood pressure is a serious health risk and shouldn t be ignored. Blood pressure measurements are given as 2 numbers. Systolic blood pressure is the upper number. This is the pressure when the heart contracts. Diastolic blood pressure is the lower number. This is the pressure when the heart relaxes between beats. You will see your blood pressure readings written together. For example, a person with a systolic pressure of 118 and a diastolic pressure of 78 will have 118/78 written in the medical record. Blood pressure is categorized as normal, elevated, or stage 1 or stage 2 high blood pressure: Normal blood pressure is systolic of less than 120 and diastolic of less than 80 (120/80) Elevated blood pressure is systolic of 120 to 129 and diastolic less than 80 Stage 1 high blood pressure is systolic is 130 to 139 or diastolic between 80 to 89 Stage 2 high blood pressure is when systolic is 140 or higher or the diastolic is 90 or higher Home care If you have high blood pressure, follow these home care guidelines to help lower your blood pressure. If you are taking medicines for high blood pressure, these methods may reduce or end your need for medicines in the future. Start a weight-loss program if you are overweight. Cut back on how much salt you get in your diet. Here s how to do this: oDon t eat foods that have a lot of salt. These include olives, pickles, smoked meats, and salted potato chips. oDon t add salt to your food at the table. oUse only small amounts of salt when cooking. Start an exercise program. Talk with your healthcare provider about the type of exercise program that would be best for you. It doesn't have to be hard. Even brisk walking for 20 minutes 3 times a week is a good form of exercise. Don t take medicines that stimulate the heart. This includes many ewmi-xrw-grlcmvq cold and sinus decongestant pills and sprays, as well as diet pills. Check the warnings about high blood pressure onthe label. Before buying any knaw-mug-crefdiv medicines or supplements, always ask the pharmacist about the product's potential interaction with your high blood pressure and your high blood pressure medicines. Stimulants such as amphetamine or cocaine could be deadly for someone with high blood pressure. Never take these. Limit how much caffeine you get in your diet. Switch to caffeine-free products. Stop smoking. If you are a long-time smoker, this can be hard. Talk to your healthcare provider about medicines and nicotine replacement options to help you. Also, enroll in a stop-smoking program tomake it more likely that you will quit for good. Learn how to handle stress. This is an important part of any program to lower blood pressure. Learnabout relaxation methods like meditation, yoga, or biofeedback. If your provider prescribed medicines, take them exactly as directed. Missing doses may cause your blood pressure get out of control. If you miss a dose or doses, check with your healthcare provider or pharmacist about what to do. Consider buying an automatic blood pressure machine to check your blood pressure at home. Ask your provider for a recommendation. You can get one of these at most pharmacies. The [employer] recommends the following guidelines for home blood pressure monitoring: Don't smoke or drink coffee for 30 minutes before taking your blood pressure. Go to the bathroom before the test. Relax for 5 minutes before taking the measurement. Sit with your back supported (don't sit on a couch or soft chair); keep your feet on the floor uncrossed. Place your arm on a solid flat surface (like a table) with the upper part of the arm at heartlevel. Place the middle of the cuff directly above the bend of the elbow. Check the monitor's instruction manual for an illustration. Take multiple readings. When you measure, take 2 to 3 readings one minute apart and record all of the results. Take your blood pressure at the same time every day, or as your healthcare provider recommends. Record the date, time, and blood pressure reading. Take the record with you to your next medical appointment. If your blood pressure monitor has a built-in memory, simply take the monitor with you to your next appointment. Call your provider if you have several high readings. Don't be frightened by a single high blood pressure reading, but if you get several high readings, check in with your healthcare provider. Note: When blood pressure reaches a systolic (top number) of 180 or higher OR diastolic (bottom number) of 110 or higher, seek emergency medical treatment. Follow-up care You will need to see your healthcare provider regularly. This is to check your blood pressure and to make changes to your medicines. Make a follow-up appointment as directed. Bring the record of yourhome blood pressure readings to the appointment. When to seek medical advice Call your healthcare provider right away if any of these occur: Blood pressure reaches a systolic (upper number) of 180 or higher OR a diastolic (bottom number) of110 or higher Chest pain or shortness of breath Severe headache Throbbing or rushing sound in the ears Nosebleed Sudden severe pain in your belly (abdomen) Extreme drowsiness, confusion, or fainting Dizziness or spinning sensation (vertigo) Weakness of an arm or leg or one side of the face You have problems speaking or seeing [id number] [employer]. [address] [place] [address]. All rights reserved. This information is not intended as a substitute for professional medical care. Always follow [facility] professional's instructions. 04/26/2022 00:50:17 URI, Viral W/ Wheezing (Adult) Viral Upper Respiratory Illness with Wheezing (Adult) You have a viral upper respiratory illness (URI), which is another term for the common cold. When the infection causes a lot of irritation, the air passages can go into spasm. This causes wheezing and shortness of breath. This illness is contagious during the first few days. It is spread through the air by coughing and sneezing. It may also be spread by direct contact. This could be by touching the sick person and then touching your own eyes, nose, or mouth. Frequent handwashing will decrease the risk. Most viral illnesses go away within 7 to 10 days with rest and simple home remedies. Sometimes the illness may last for several weeks. Antibiotics will not kill a virus, and they are generally not prescribed for this condition. Home care If symptoms are severe, rest at home for the first 2 to 3 days. When you resume activity, don't letyourself get too tired. If you smoke, stop. Ask your healthcare provider if you need help. Stay away from secondhand cigarette smoke. Don't let people smoke in your house or car. You may use acetaminophen or ibuprofen to control pain and fever, unless another medicine was prescribed. Take the medicine only as directed on the label. If you have chronic liver or kidney disease,have ever had a stomach ulcer or gastrointestinal bleeding, or are taking blood-thinning medicines,talk with your healthcare provider before using these medicines. Aspirin should never be given to anyone under 18 years of age who is ill with a viral infection or fever. It may cause severe liver orbrain damage. Your appetite may be poor, so a light diet is fine. Stay well hydrated by drinking 6 to 8 glasses of fluids per day (water, soft drinks, juices, tea, or soup). Extra fluids will help loosen secretions in the nose and lungs. Ifri-jrd-qpkbevf cold medicines will not shorten the length of time you re sick, but they may be helpful for the following symptoms: cough, sore throat, and nasal and sinus congestion. Ask your healthcare provider or pharmacist which ejui-coo-qmofhag medicine to use. Don't use decongestants if you have high blood pressure. Follow-up care Follow up with your healthcare provider, or as advised. When to seek medical advice Call your healthcare provider right away if any of these occur: Cough with lots of colored sputum (mucus) Severe headache; face, neck, or ear pain Difficulty swallowing due to throat pain Fever of 100.4 F (38 C) or higher, or as directed by your healthcare provider Call 911 Call 911 if any of these occur: Chest pain, shortness of breath, worsening wheezing, or difficulty breathing Coughing up blood Very severe pain when swallowing, especially if it goes along with a muffled voice [id number] [employer]. [address] [place] [address]. All rights reserved. This information is not intended as a substitute for professional medical care. Always follow yourhealthcare professional's instructions. 04/26/2022 00:50:10 COPD Flare COPD Flare You have had a flare-up of your COPD. COPD (chronic obstructive pulmonary disease) is a common lung disease. It causes your airways to get irritated and narrower. This makes it harder for you to breathe. Emphysema and chronic bronchitis are both types of COPD. This is a long-term (chronic) condition. This means you always have it. Sometimes it gets worse. When this happens, it is called a flare-up. Symptoms of COPD People with COPD may have symptoms most of the time. In a flare-up, your symptoms get worse. These symptoms may mean you are having a flare-up: Shortness of breath, shallow or rapid breathing, or wheezing that gets worse Lung infection Cough that gets worse More mucus, thicker mucus or mucus of a different color Tiredness, less energy, or trouble doing your normal activities Fever Chest tightness Your symptoms don t get better even when you use your normal medicines, inhalers, and nebulizer Trouble talking You feel confused Causes of flare-ups Unfortunately, a flare-up can happen even if you did everything right. And even if you followed your healthcare provider s instructions. Some causes of flare- ups are: Smoking or secondhand smoke Colds, the flu, or respiratory infections Air pollution Sudden change in the weather Dust, irritating chemicals, or strong fumes Not taking your medicines as prescribed Home care Here are some things you can do at home to treat a flare-up: Try not to panic. This makes it harder to breathe, and keeps you from doing the right things. Don t smoke or be around others who are smoking. Try to drink more fluids than normal during a flare-up, unless your healthcare provider has told you not to because of heart and kidney problems. More fluids can help loosen the mucus. Use your inhalers and nebulizer, if you have one, as you have been told to. If you were given antibiotics, take them until they are used up or your provider tells you to stop.It s important to finish the antibiotics, even though you feel better. This will make sure the infection has cleared. If you were given prednisone or another steroid, finish it even if you feel better. Preventing a flare-up Flare-ups happen. But the best way to treat one is to prevent it before it starts. Here are some pointers: Don t smoke or be around others who are smoking. Take your medicines as discussed with your healthcare provider. Talk with your provider about getting a flu shot every year. Also find out if you need a pneumonia shot. If there is a weather advisory warning to stay indoors, try to stay inside when possible. Try to eat healthy, exercise, and get plenty of sleep. Try to stay away from things that normally set you off. These include dust, chemical fumes, hairsprays, or strong perfumes. Follow-up care Follow up with your healthcare provider, or as advised. If a culture was done, you will be told if your treatment needs to be changed. You can call as directed for the results. If X-rays were done, you will be told of any new findings that may affect your care. Call 911 Call 911 if any of these occur: You have trouble breathing You feel confused or it s hard to wake you up You faint or lose consciousness You have a rapid heart rate You have new pain in your chest, arm, shoulder, neck, or upper back When to seek medical advice Call your healthcare provider right away if any of these occur: Wheezing or shortness of breath gets worse You need to use your inhalers more often than normal without relief Fever of 100.4 F (38 C) or higher, or as directed by your healthcare provider Coughing up lots of dark-colored or bloody mucus (sputum) Chest pain with each breath You don't start to get better within 24 hours Swelling of your ankles gets worse Dizziness or weakness [id number] [employer]. [address] [place] [address], [place] [address]. All rights reserved. This information is not intended as a substitute for professional medical care. Always follow yourhealthcare professional's instructions. Follow Up Care 04/25/2022 22:05:13 With:MELLY CHE Address: [address] [place] [phone] Business (1) When:2-4 days Comments:Schedule appointment as soon as possibleReturn to ED if symptoms worsenTake 1200mg regular mucinex 2x/day. Stop smoking. Return for symptoms as described. Follow up for blood pressure and lab review/recheck With:TIFFANI PHYSICIAN Address:Unknown When:2-4 days [facility] 11-07-2022 Note Discharge Instructions Thank you for allowing [facility] to assist you with your healthcare needs. The following is importantdischarge information regarding your hospital visit. Diagnosis from Today's Visit COPD - Chronic obstructive pulmonary disease URTI - Viral upper respiratory tract infection Hypertension Hyperglycemia Shortness of breath What to Do Next Instructions from Your Care Team No qualifying data available. Post Acute Orders No qualifying data available. You Need to Schedule the Following Appointments Follow Up with MELLY CHE When Within 2-4 days Why: Schedule appointment as soon as possible Return to ED if symptoms worsen Take 1200mg regular mucinex 2x/day. Stop smoking. Return for symptoms as described. Follow up for blood pressure and lab review/recheck Where: [address] [place] [phone] Business (1) Follow Up with NONE PHYSICIAN When Within 2-4 days Allergies Vicodin (Hives) codeine (Rash, hives) Medications Please ask your primary doctor or pharmacist before taking any other medication not listed, including over the counter drugs, herbal medications, vitamins and or supplements as they may interact withyour home medications. What How Much When Why Instructions Last Dose New albuterol-ipratropium (Combivent Respimat CFC free 20 mcg-100 mcg/ inh inhalation aerosol) 1 puff(s) by inhalation Four (4) times a day COPD - Chronic obstructive pulmonary disease URTI - Viral upper respiratory tract infection with one puff albuterol Printed Prescription New predniSONE (predniSONE 10 mg oral tablet) 3 by mouth Two (2) times a day COPD - Chronic obstructive pulmonary disease URTI - Viral upper respiratory tract infection 1st dose in am Printed Prescription Unchanged aspirin 81 Milligram by mouth Once a day Unchanged aspirin (aspirin 81 mg oral delayed release tablet) 1 tab(s) by mouth Once a day Unchanged insulin glargine (Basaglar KwikPen 100 units/ mL subcutaneous solution (NF)) 60 unit(s) Subcutaneous Daily at bedtime Unchanged levETIRAcetam (Keppra) Two (2) times a day Unchanged Misc Medication (short acting insulin) Unchanged rivaroxaban (Xarelto 15 mg oral tablet) 1 tab(s) by mouth Two (2) times a day Duration: 21 Days with food Please take this list to your next doctor s visit. Bring all medications you take, including over the counter medications, herbals and other supplements with you to your doctor s visit. Patients and families are reminded to discard old lists and to update any records with all medication providers or retail pharmacies. [employer] High Blood Sugar (Hyperglycemia) Too much sugar (glucose) in your blood is called high blood sugar (hyperglycemia). This can lead toa dangerous condition called ketoacidosis. In severe cases, it can lead to fluid loss (dehydration)and coma. Possible causes of high blood sugar Having a poor treatment plan for diabetes Being sick Being under stress Taking certain medicines, such as steroids Eating too much food, especially carbohydrates Being less active than normal Not taking enough diabetes medicine Symptoms of high blood sugar High blood sugar may not cause symptoms. If you do have symptoms, they may include: Thirst Frequent need to urinate Feeling tired or drowsy Nausea and vomiting Itchy, dry skin Blurry vision Fast breathing and breath that smells fruity Weakness Dizziness Wounds or skin infections that don t heal Unexplained weight loss if hyperglycemia lasts for more than a few days What to do Do the following: Check your blood sugar. Drink plenty of sugar-free, caffeine-free liquids such as water. Don t drink fruit juice. Check your blood sugar again every 4 hours. If you take insulin or diabetes medicines, follow your sick-day plan for taking medicine. Call your healthcare provider if you are not able to eat. Check your blood or urine for ketones as directed. Call your provider if your blood sugar and ketones don't go back to your target range. If the value is high, take your diabetes medicines as prescribed. And check your blood sugar more often. Doses of medicines such as insulin can be increased slightly if blood sugars stay high. But your provider must approve this. Preventing high blood sugar To help keep your blood sugar from getting too high: Control stress. When you're ill, follow your sick-day plan. Follow your meal plan. Eat only the amount of food on your meal plan. Stick to your exercise plan. Take your insulin or diabetes medicines as directed by your healthcare team. Also test your blood sugar as directed. If the plan is not working for you, discuss it with your healthcare provider. Other things to do Carry a medical ID card or a [employer] USB drive. Or wear a medical alert bracelet or necklace. It should say that you have diabetes. It should also say what to do in case you pass out or go into a coma. Make sure family, friends, and coworkers know the signs of high blood sugar. Tell them what to do if your blood sugar gets very high and you can t help yourself. Talk with your healthcare team about other things you can do to prevent high blood sugar. Special note: Drink plenty of sugar-free and caffeine-free liquids when you feel symptoms of hyperglycemia. Call your healthcare provider if you keep having episodes of high blood sugar. [id number] [employer]. [address] [place] [address], [place] [id number]. All rights reserved. This information is not intended as a substitute for professional medical care. Always follow yourhealthcare professional's instructions. Established High Blood Pressure High blood pressure (hypertension) is a chronic disease. Often, healthcare providers don t know what causes it. But it can be caused by certain health conditions and medicines. If you have high blood pressure, you may not have any symptoms. If you do have symptoms, they may include headache, dizziness, changes in your vision, chest pain, and shortness of breath. But even without symptoms, high blood pressure that s not treated raises your risk for heart attack, heart failure, and stroke. High blood pressure is a serious health risk and shouldn t be ignored. Blood pressure measurements are given as 2 numbers. Systolic blood pressure is the upper number. This is the pressure when the heart contracts. Diastolic blood pressure is the lower number. This is the pressure when the heart relaxes between beats. You will see your blood pressure readings written together. For example, a person with a systolic pressure of 118 and a diastolic pressure of 78 will have 118/78 written in the medical record. Blood pressure is categorized as normal, elevated, or stage 1 or stage 2 high blood pressure: Normal blood pressure is systolic of less than 120 and diastolic of less than 80 (120/80) Elevated blood pressure is systolic of 120 to 129 and diastolic less than 80 Stage 1 high blood pressure is systolic is 130 to 139 or diastolic between 80 to 89 Stage 2 high blood pressure is when systolic is 140 or higher or the diastolic is 90 or higher Home care If you have high blood pressure, follow these home care guidelines to help lower your blood pressure. If you are taking medicines for high blood pressure, these methods may reduce or end your need for medicines in the future. Start a weight-loss program if you are overweight. Cut back on how much salt you get in your diet. Here s how to do this: oDon t eat foods that have a lot of salt. These include olives, pickles, smoked meats, and salted potato chips. oDon t add salt to your food at the table. oUse only small amounts of salt when cooking. Start an exercise program. Talk with your healthcare provider about the type of exercise program that would be best for you. It doesn't have to be hard. Even brisk walking for 20 minutes 3 times a week is a good form of exercise. Don t take medicines that stimulate the heart. This includes many jury-ldo-jlkuhrk cold and sinus decongestant pills and sprays, as well as diet pills. Check the warnings about high blood pressure onthe label. Before buying any msmt-ltf-ynknyxc medicines or supplements, always ask the pharmacist about the product's potential interaction with your high blood pressure and your high blood pressure medicines. Stimulants such as amphetamine or cocaine could be deadly for someone with high blood pressure. Never take these. Limit how much caffeine you get in your diet. Switch to caffeine-free products. Stop smoking. If you are a long-time smoker, this can be hard. Talk to your healthcare provider about medicines and nicotine replacement options to help you. Also, enroll in a stop-smoking program tomake it more likely that you will quit for good. Learn how to handle stress. This is an important part of any program to lower blood pressure. Learnabout relaxation methods like meditation, yoga, or biofeedback. If your provider prescribed medicines, take them exactly as directed. Missing doses may cause your blood pressure get out of control. If you miss a dose or doses, check with your healthcare provider or pharmacist about what to do. Consider buying an automatic blood pressure machine to check your blood pressure at home. Ask your provider for a recommendation. You can get one of these at most pharmacies. The [place] [employer] recommends the following guidelines for home blood pressure monitoring: Don't smoke or drink coffee for 30 minutes before taking your blood pressure. Go to the bathroom before the test. Relax for 5 minutes before taking the measurement. Sit with your back supported (don't sit on a couch or soft chair); keep your feet on the floor uncrossed. Place your arm on a solid flat surface (like a table) with the upper part of the arm at heartlevel. Place the middle of the cuff directly above the bend of the elbow. Check the monitor's instruction manual for an illustration. Take multiple readings. When you measure, take 2 to 3 readings one minute apart and record all of the results. Take your blood pressure at the same time every day, or as your healthcare provider recommends. Record the date, time, and blood pressure reading. Take the record with you to your next medical appointment. If your blood pressure monitor has a built-in memory, simply take the monitor with you to your next appointment. Call your provider if you have several high readings. Don't be frightened by a single high blood pressure reading, but if you get several high readings, check in with your healthcare provider. Note: When blood pressure reaches a systolic (top number) of 180 or higher OR diastolic (bottom number) of 110 or higher, seek emergency medical treatment. Follow-up care You will need to see your healthcare provider regularly. This is to check your blood pressure and to make changes to your medicines. Make a follow-up appointment as directed. Bring the record of yourhome blood pressure readings to the appointment. When to seek medical advice Call your healthcare provider right away if any of these occur: Blood pressure reaches a systolic (upper number) of 180 or higher OR a diastolic (bottom number) of110 or higher Chest pain or shortness of breath Severe headache Throbbing or rushing sound in the ears Nosebleed Sudden severe pain in your belly (abdomen) Extreme drowsiness, confusion, or fainting Dizziness or spinning sensation (vertigo) Weakness of an arm or leg or one side of the face You have problems speaking or seeing 8214-9193 [employer]. [address] [place] [address], [place] [address]. All rights reserved. This information is not intended as a substitute for professional medical care. Always follow yourhealthcare professional's instructions. Viral Upper Respiratory Illness with Wheezing (Adult) You have a viral upper respiratory illness (URI), which is another term for the common cold. When the infection causes a lot of irritation, the air passages can go into spasm. This causes wheezing and shortness of breath. This illness is contagious during the first few days. It is spread through the air by coughing and sneezing. It may also be spread by direct contact. This could be by touching the sick person and then touching your own eyes, nose, or mouth. Frequent handwashing will decrease the risk. Most viral illnesses go away within 7 to 10 days with rest and simple home remedies. Sometimes the illness may last for several weeks. Antibiotics will not kill a virus, and they are generally not prescribed for this condition. Home care If symptoms are severe, rest at home for the first 2 to 3 days. When you resume activity, don't letyourself get too tired. If you smoke, stop. Ask your healthcare provider if you need help. Stay away from secondhand cigarette smoke. Don't let people smoke in your house or car. You may use acetaminophen or ibuprofen to control pain and fever, unless another medicine was prescribed. Take the medicine only as directed on the label. If you have chronic liver or kidney disease,have ever had a stomach ulcer or gastrointestinal bleeding, or are taking blood-thinning medicines,talk with your healthcare provider before using these medicines. Aspirin should never be given to anyone under 18 years of age who is ill with a viral infection or fever. It may cause severe liver orbrain damage. Your appetite may be poor, so a light diet is fine. Stay well hydrated by drinking 6 to 8 glasses of fluids per day (water, soft drinks, juices, tea, or soup). Extra fluids will help loosen secretions in the nose and lungs. Qpyu-twv-qcdyquo cold medicines will not shorten the length of time you re sick, but they may be helpful for the following symptoms: cough, sore throat, and nasal and sinus congestion. Ask your healthcare provider or pharmacist which hloh-adw-ieastnp medicine to use. Don't use decongestants if you have high blood pressure. Follow-up care Follow up with your healthcare provider, or as advised. When to seek medical advice Call your healthcare provider right away if any of these occur: Cough with lots of colored sputum (mucus) Severe headache; face, neck, or ear pain Difficulty swallowing due to throat pain Fever of 100.4 F (38 C) or higher, or as directed by your healthcare provider Call 911 Call 911 if any of these occur: Chest pain, shortness of breath, worsening wheezing, or difficulty breathing Coughing up blood Very severe pain when swallowing, especially if it goes along with a muffled voice [id number] [employer]. [address] [place] [address]. All rights reserved. This information is not intended as a substitute for professional medical care. Always follow yourhealthcare professional's instructions. COPD Flare You have had a flare-up of your COPD. COPD (chronic obstructive pulmonary disease) is a common lung disease. It causes your airways to get irritated and narrower. This makes it harder for you to breathe. Emphysema and chronic bronchitis are both types of COPD. This is a long-term (chronic) condition. This means you always have it. Sometimes it gets worse. When this happens, it is called a flare-up. Symptoms of COPD People with COPD may have symptoms most of the time. In a flare-up, your symptoms get worse. These symptoms may mean you are having a flare-up: Shortness of breath, shallow or rapid breathing, or wheezing that gets worse Lung infection Cough that gets worse More mucus, thicker mucus or mucus of a different color Tiredness, less energy, or trouble doing your normal activities Fever Chest tightness Your symptoms don t get better even when you use your normal medicines, inhalers, and nebulizer Trouble talking You feel confused Causes of flare-ups Unfortunately, a flare-up can happen even if you did everything right. And even if you followed your healthcare provider s instructions. Some causes of flare- ups are: Smoking or secondhand smoke Colds, the flu, or respiratory infections Air pollution Sudden change in the weather Dust, irritating chemicals, or strong fumes Not taking your medicines as prescribed Home care Here are some things you can do at home to treat a flare-up: Try not to panic. This makes it harder to breathe, and keeps you from doing the right things. Don t smoke or be around others who are smoking. Try to drink more fluids than normal during a flare-up, unless your healthcare provider has told you not to because of heart and kidney problems. More fluids can help loosen the mucus. Use your inhalers and nebulizer, if you have one, as you have been told to. If you were given antibiotics, take them until they are used up or your provider tells you to stop.It s important to finish the antibiotics, even though you feel better. This will make sure the infection has cleared. If you were given prednisone or another steroid, finish it even if you feel better. Preventing a flare-up Flare-ups happen. But the best way to treat one is to prevent it before it starts. Here are some pointers: Don t smoke or be around others who are smoking. Take your medicines as discussed with your healthcare provider. Talk with your provider about getting a flu shot every year. Also find out if you need a pneumonia shot. If there is a weather advisory warning to stay indoors, try to stay inside when possible. Try to eat healthy, exercise, and get plenty of sleep. Try to stay away from things that normally set you off. These include dust, chemical fumes, hairsprays, or strong perfumes. Follow-up care Follow up with your healthcare provider, or as advised. If a culture was done, you will be told if your treatment needs to be changed. You can call as directed for the results. If X-rays were done, you will be told of any new findings that may affect your care. Call 911 Call 911 if any of these occur: You have trouble breathing You feel confused or it s hard to wake you up You faint or lose consciousness You have a rapid heart rate You have new pain in your chest, arm, shoulder, neck, or upper back When to seek medical advice Call your healthcare provider right away if any of these occur: Wheezing or shortness of breath gets worse You need to use your inhalers more often than normal without relief Fever of 100.4 F (38 C) or higher, or as directed by your healthcare provider Coughing up lots of dark-colored or bloody mucus (sputum) Chest pain with each breath You don't start to get better within 24 hours Swelling of your ankles gets worse Dizziness or weakness [id number] [employer]. [address] [place] [address], [place] [address]. All rights reserved. This information is not intended as a substitute for professional medical care. Always follow yourhealthcare professional's instructions. Additional Information VACCINATE! IT SAVES LIVES! Members of the community who have not yet received the COVID-19 vaccine and would like to receive it can visit one of [facility] vaccine clinics. There are many vaccine clinic locations within the [facility]. For locations and available times, please visit [email or web address]. It is important to note that some COVID mobile vaccine clinics are held outdoors and may be canceled in rainy orstormy conditions. To learn more about pediatric vaccinations (ages 5-11), we invite you to visit the [facility] webpage. [email or web address] learn more about the COVID-19 vaccine, we invite you to visit the [facility] website for a list of frequently asked questions. [email or web address] [facility] [employer] Patient Portal Access Instructions: Stay connected with your healthcare team and access your personal medical information anytime with the [facility] Patient Portal. If you would like a full copy of your medical records please contact the [facility] Medical Records Department Tuesday through Tuesday between 8a.m. and 4:30p.m. Please follow the directions below to access the portal: 1.Access the email account you provided upon registration to the [facility].2.Look for an invitation email from [facility].3.Open the email and access the invitation link: Accept Invitation to [facility]4.Fill in the required mcdonald to create your account. Sign into www.[employer] with your username and password that you created in the above steps to stay up to date. You can then view a summary of results, a summary of your visits, and the ability to download your summaries to your computer or send the information securely to a physician. Remember that your healthcare information is confidential, so carefully consider who you will allow to register on the [facility] Patient Portal for access to your information. You can also access the [employer] Patient Portal on the [employer]. Simply click on Health Records under [employer] and then click on the [facility] logo. HOW TO SAFELY DISPOSE OF PRESCRIPTION MEDICATIONS Please use one of the following methods to safely dispose of your unused medications. 1.Use a drug disposal kit: the drug disposal pouch allows you to safely discard your old and unuseddrugs. Ask your nurse to give you one when you are discharged.2.Visit a local take-back location: Many local pharmacies and police departments have programs that collect old and unwanted prescriptiondrugs. Call your local pharmacy or go to http://Promise[employer]/8S8Of9m to find one close to you.3.Make use of household items: Use cat litter or old coffee grounds to dispose medications if other options arenot available. Mix your drugs with these household products, seal them in an airtight container andthrow it into the garbage. Call [facility]: [phone] to be sure your drugs can be disposed of in this way. Some medicines may require a different approach.4.Never flush your medications down the toilet. IF YOU HAVE BEEN PRESCRIBED AN OPIOIDS FOR PAIN If you have been prescribed an opioid (such as hydrocodone, oxycodone or morphine), it is critical to understand the possible side effects and risks of opioid pain medications. Even when taken as directed, opioids can have several side effects including: Tolerance, meaning you might need to take more of a medication for the same pain relief. Nausea, vomiting and/or constipation. Sleepiness, dizziness, dry mouth, confusion, depression or itching. Physical dependence, meaning you have withdrawal symptoms when a medication is stopped ? this can develop within a few days. KNOW YOUR RESPONSIBILITIES It is important to know exactly how much and how often to take the opioid pain medications you are prescribed. Never take opioids in higher amounts or more often than prescribed. Do not combine opioids with alcohol or other drugs that cause drowsiness, such as benzodiazepines, also known as benzos,including diazepam and alprazolam, muscle relaxants or sleep aids. Never sell or share prescriptionopioids. This is illegal. Store opioids in a secure place and out of reach of others (including children, family, friends and visitors). The last page(s) of this document has been signed and retained as a CHART COPY Signatures Patient Education Materials High Blood Sugar (Hyperglycemia) Hypertension, Established URI, Viral W/ Wheezing (Adult) COPD Flare Medication Leaflets My discharge plan and instructions have been reviewed and explained to me and I,DOREEN DENISE understand my current condition and have read and understand these discharge instructions. I have received a written copy of the plan/instructions. If I have questions, I am aware that I should contact my doctor. 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 Minimal linear airspace disease at the left base favors scarring. No pleural effusion, vascular congestion, or pneumothorax. Chronic mild interstitial prominence. IMPRESSION: No acute radiographic cardiopulmonary findings. Interpreted by: Marcelle Lambert MD Preliminary Report By: Marcelle Lambert MD Electronically signed By Marcelle Lambert MD Dictated Date: 04/25/2022 11:12:54 PM Prelim Date: 04/25/2022 11:13:58 PM Sign Date: 04/25/2022 11:13:58 PM Ordering Provider: LEILANI KAMARA [facility]11-06-2022 Note ORIGINAL EXAMINATION: ONE XRAY VIEW OF THE CHEST 04/25/2022 11:05 pm COMPARISON: 08/19/2020 HISTORY: ORDERING SYSTEM PROVIDED HISTORY: Reason for Exam: chest pain FINDINGS: The cardiomediastinal silhouette is normal. Minimal linear airspace disease at the left base favors scarring. No pleural effusion, vascular congestion, or pneumothorax. Chronic mild interstitial prominence. IMPRESSION: No acute radiographic cardiopulmonary findings. Interpreted by: Marcelle Lambert MD Preliminary Report By: Marcelle Lambert MD Electronically signed By Marcelle Lambert MD Dictated Date: 04/25/2022 11:12:54 PM Prelim Date: 04/25/2022 11:13:58 PM Sign Date: 04/25/2022 11:13:58 PM [facility] No data available for this section [facility] Evaluation note* Diagnosis Disseminated herpes zoster- Primary Herpes zoster with other specified complications Right flank pain Abdominal pain, unspecified site documented in this encounter [facility] Work Phone: Evaluation noteNo assessment information available [facility] Work Phone: Evaluation note* Diagnosis Localized superficial swelling, mass, or lump- Primary documented in this encounter [facility] note* Diagnosis Mass of left upper extremity- Primary documented in this encounter [facility] note* Diagnosis Localized superficial swelling, mass, or lump documented in this encounter [facility] note* Diagnosis Cancer of skin of left forearm- Primary documented in this encounter [facility] note* Diagnosis Squamous cell carcinoma, arm, left- Primary Cancer related pain Neoplasm related pain (acute) (chronic) documented in this encounter 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 note* Diagnosis Cancer of skin of left forearm documented in this encounter [facility] note* Diagnosis Palliative care by specialist- Primary Squamous cell carcinoma, arm, left Cancer related pain Neoplasm related pain (acute) (chronic) documented in this encounter [facility] note* Diagnosis Squamous cell carcinoma, arm, left- Primary History of lymphoma Personal history of other lymphatic and hematopoietic neoplasm documented in this encounter [facility] note* Diagnosis Palliative care by specialist Squamous cell carcinoma, arm, left Cancer related pain Neoplasm related pain (acute) (chronic) documented in this encounter [facility] note* Diagnosis Lung mass- Primary Swelling, mass, or lump in chest documented in this encounter [facility] note* Diagnosis Palliative care by specialist Squamous cell carcinoma, arm, left Cancer related pain Neoplasm related pain (acute) (chronic) documented in this encounter [facility] note* Diagnosis Right lower lobe lung mass- Primary Swelling, mass, or lump in chest Bronchiolar disease Other diseases of trachea and bronchus documented in this encounter [facility] note* Diagnosis Right lower lobe lung mass- Primary Swelling, mass, or lump in chest Lymphadenopathy Enlargement of lymph nodes Non-Hodgkin's lymphoma, unspecified body region, unspecified non-Hodgkin lymphoma type (HCC) Preop examination Preoperative examination, unspecified SCC (squamous cell carcinoma), arm, left Bronchiolar disease Other diseases of trachea and bronchus documented in this encounter [facility] note* Diagnosis Poorly controlled type 2 diabetes mellitus with complication (HCC)- Primary Type II or unspecified type diabetes mellitus with unspecified complication, not stated as uncontrolled documented in this encounter [facility] note* Diagnosis Palliative care by specialist- Primary Squamous cell carcinoma, arm, left Cancer related pain Neoplasm related pain (acute) (chronic) Opioid use agreement exists Encounters for other specified administrative purpose documented in this encounter [facility] note* Diagnosis Squamous cell carcinoma, arm, left documented in this encounter [facility] note* Diagnosis Encounter for antineoplastic immunotherapy- Primary Squamous cell carcinoma, arm, left documented in this encounter [facility] note* Diagnosis Squamous cell carcinoma, arm, left- Primary Malignant neoplasm metastatic to lung, unspecified laterality (HCC) Cancer related pain Neoplasm related pain (acute) (chronic) History of lymphoma Personal history of other lymphatic and hematopoietic neoplasm [facility]* Diagnosis Cancer related pain- Primary Neoplasm related pain (acute) (chronic) Malignant neoplasm metastatic to lung, unspecified laterality (HCC) [facility]* Karlie Wilburn PA-C - 02/07/2021 Your work-up for abdominal cause of your flank area pain was unremarkable in the ED, given your rash on the flank we feel your symptoms could be due to shingles. Please take antiviral medication as prescribed. Pain medication as needed. Follow-up with your doctor in the next week for reassessment. If you develop any severe new or worsening symptoms contact your doctor or return to the ED. * Attachments The following attachments cannot be sent through Care Everywhere. * Shingles (Dutch) documented in this [facility] Work Phone: Hospital Discharge instructions No data available for this section [facility] Hospital Discharge instructions Additional Instructions Date of Discharge: 09/05/24[facility] Work Phone: Progress note No data available for this section [facility] Reovqv for referral (narrative)No reason for referral [facility] Work Phone: Reason for visit Narrative* Diagnostic Procedure Only (Urgent) - Closed Specialty Diagnoses / Procedures Referred By Eduardo escalera Referred To Contact MOLECULAR & FUNCTIONAL IMAGING Diagnoses Cancer of skin of left forearm Procedures NM PET/CT WHOLE BODY INITIAL PET IMAGING FOR CT ATTENUATION WHOLE BODY Enoch Paul MD [address] [place] [address] Phone: tel: fax: Molecular Imaging [address] [place] [address] Phone: tel: Referral ID Status Reason Start Date Expiration Date V isits Requested Visits Authorized [id number] Closed Auto-Generate d Referral 09/07/2024 11/06/2024 2 2 [facility] for visit Narrative* Diagnostic Procedure Only (Routine) - Closed Specialty Diagnoses / Procedures Referred By Eduardo escalera Referred To Contact Radiology / MOLECULAR & FUNCTIONAL IMAGING Diagnoses NM PET/CT WHOLE BODY INITIAL Procedures PET IMAGING THY Self [facility] [address] [place] [address] Phone: tel: Referral ID Status Reason Start Date Expiration Date V isits Requested Visits Authorized [id number] Closed Patient Cleared - Admin/Chairm an/Director advise to proceed or did not respond 09/07/2024 11/06/2024 1 1 [facility] for visit Narrative* Staley Prior Authorization (Routine) - Authorized Specialty Diagnoses / Procedures Referred By Contac t Referred To Contact Diagnoses Squamous cell carcinoma, arm, left Procedures INJ., CEMIPLIMAB-RWLC, 1 MG Johana Sagastume MD [address] [place] [address] Phone: tel: fax: [place] [address] [place] [address] Phone: tel: fax: Referral ID Status Reason Start Date Expiration Date V isits Requested Visits Authorized [id number] Authorized 10/08/2024 01/06/2025 5 5 [facility] note* NELIDA Lynn: PERFORM Event Display: Patient Summary Documents Authored Date: [id number] [facility] Summary Purpose Family History No Family History Records FoundUnknown Family Member Name Dates Details Family history of malignant neoplasm of brain(V16.8, Z80.8) Comments:Other Status:Active Unknown Family Member Name Dates Details Family history of malignant neoplasm of brain(V16.8, Z80.8) Comments:Other Status:Active Unknown Family Member Name Dates Details Family history of malignant neoplasm of brain(V16.8, Z80.8) Comments:Other Status:Active Relationship Condition Age at Onset Recorded Date/T kristin mother Malignant neoplasm of brain Unknown father Malignant neoplasm of throat Unknown Advance Directives No Advanced Directives Records FoundDocuments on File Type Date Recorded Patient Travel Agent Expl anation ACP-Advance Directive ACP-Power of Retail Clerk Latest Code Status on File Code Status Date Activated Date Inactivated Comments Full Code 08/26/2020 10:23 PM Documents on File Type Date Recorded Patient Travel Agent Expl anation ACP-Advance Directive ACP-Power of Retail Clerk Latest Code Status on File Code Status Date Activated Date Inactivated Comments Full Code 08/26/2020 10:23 PM 08/29/2020 8:11 PM Documents on File Type Date Recorded Patient Travel Agent Expl anation Advance Directives and Livin g Will 09/01/2020 8:47 AM ACP-Advance Directive ACP-Power of Retail Clerk Documents on File Type Date Recorded Patient Travel Agent Expl anation Advance Directives and Livin g Will 09/01/2020 8:47 AM ACP-Advance Directive ACP-Power of Retail Clerk Latest Code Status on File Code Status Date Activated Date Inactivated Comments Full Code 08/26/2020 10:23 PM 08/29/2020 8:11 PM Documents on File Type Date Recorded Patient Travel Agent Expl anation ACP-Advance Directive ACP-Power of Retail Clerk Advance Directives and Livin g Will 09/01/2020 8:47 AM Advance Directive Response Recorded Date/ Time Advance Directives No July 3:42pm Living Will No August 13 3:42pm Power of Retail Clerk No August 13, 2021 3:42pm Advance Directive Response Recorded Date/ Time Living Will No September 04, 2024 10:27pm Power of Retail Clerk No September 04 10:27pm Advance Directives No July 3:42pm Advance Directive Response Recorded Date/ Time Living Will No September 05, 2024 12:42am Power of Retail Clerk No September 05 12:42am Advance Directives No July 3:42pm Documents on File Type Date Recorded Patient Travel Agent Expl anation Advance Directive(s) 11/13/2024 5:30 PM Date Activated Date Inactivated Comments 11/12/2024 2:11 AM Question Answer Comments Full Code Order Discussed With: Patient Date Activated Date Inactivated Comments 11/10/2024 4:55 AM 11/12/2024 1:19 AM Question Answer Comments Full Code Order Discussed With: Patient Date Activated Date Inactivated Comments 11/12/2024 2:11 AM 11/19/2024 8:30 PM Procedure Findings Note Post Operative Note: PreOp D iagnosis: Nasopharyngeal mass, cervical lymphadenopathy Post-Procedure Diagnosis: Nasopharyngeal mass, cervical lymphadenopathy Procedure: 1. Nasal endoscopy with biopsy 2. Direct laryngoscopy 3. Flexible bronchoscopy 4. Flexible esophagoscopy 5. Right myringotomy with tympanostomy tube insertion Surgeon: Umer Resident/Fellow/Other Yoga Teacher: Piotr Anesthesia: general Estimated Blood Loss (mL): 10 Specimen: yes Complications: none Findings: 1. Mass occupying the right nasopharynx and obstructing the eustachian tube 2. Large left septal deviation 3. Serous fluid in R ME space Patient Returned To/Condition: PACU in stable condition Signature/Cosignature/Attestation: Attending AttestationI was present for the entire procedure Electronic Signatures: Deniz Rodriguez () (Signed 16-Oct-2018 20:18) Authored: Signature/Cosignature/Attestation Co-Signer: Post Operative Note, Signature/Cosignature/Attestation Blas Saldaña (Resident)) (Signed 16-Oct-2018 17 (more content not included)... Discharge Instructions * Discharge Instr - Lab* Tamara Andrade RN - 08/29/2020 2:11 PM EST Starting tomorrow TuesdayAugust 30 you will come to [facility] for IV infusion at 8am. You will come to the main entrance and be escorted to Private Outpatient. This will be a daily service- starting August 30 and ending September 22 2020. All infusions are at 8am. Phone number for Private Outpatient (POP) is [phone] documented in this encounter* Instructions* Laci Albrecht MD - 09/13/2020 Please return for nausea/vomiting or development of abdominal pain * Attachments The following attachments cannot be sent through Care Everywhere. * Hypertension: Emergency or Urgency (Dutch) documented in this encounter* Attachments The following attachments cannot be sent through Care Everywhere. * Hypertension: General Info (Dutch) documented in this encounter History of Present Illness * Dorinda Kitchen RN - 08/29/2020 5:23 PM EST Patient requested a script for Oxycodone for pain upon discharge. Pt does have a h/o polysubstance abuse. Per patient request, I asked Dr. Licea if he would send an oxy script to her pharmacy. Dr. Licea stated no narcotics upon discharge. Will update patient once PICC team is done placing her PICC. Xray has been done to verify placement. Dr. Licea did call in an order for Flexeril for patient. Went over discharge instructions with patient and patient signed and is agreeable. Belongings taken with patient and patient is leaving with sister. Patient is now discharged. * Dorinda Kitchen RN - 08/29/2020 2:52 PM EST Patient was given order to shower and shower was completed. Telemetry monitoring discontinued. Waiting on PICC team to place PICC so patient can be discharged. PICC team did call and stated it will be done today. Outpatient appointment set up for tomorrow at 8 am for ATB infusion. Messaged Dr. Licea to place discharge order so we can start discharge process so patient can go home today. * Ronel Licea MD - 08/29/2020 1:03 PM EST Images from the original note were not included. Hospitalist Progress Note 08/29/2020 1:03 PM [phone]: Please page me for patient care issues. [phone]: Please page [facility] night Hospitalist for any issues. Subjective: Admit Date: 08/26/2020 PCP: No primary care provider on file. Room#: 1464/1462Z Interval History: Feels ok Wants to shower DIET GENERAL; No data found. Intake/Output Summary (Last 24 hours) at 08/29/2020 1303 Last data filed at 08/28/2020 1700 Gross per 24 hour Intake 600 ml Output Net 600 ml LABS: CBC: Recent Labs 08/27/20 000 WBC 8.9 RBC 2.71* HGB 8.0* HCT 23.2* MCV 85.7 RDW 15.4* PLT 169 BMP: Recent Labs 08/27/20 000 NA 130* K 3.5 CL 97* CO2 27 BUN 7 CREATININE 0.49* GLUCOSE 285* CALCIUM 7.4* ANIONGAP 5 LIVER PROFILE: Recent Labs 08/27/20 0007 AST 30 ALT 14 BILITOT 0.7 ALKPHOS 105 LABALBU 2.6* PROT 5.7* PT/INR: No results for input(s): PROTIME, INR in the last 72 hours. CARDIAC ENZYMES: No results for input(s): TROPONINI in the last 72 hours. Procalcitonin: No results found for: PROCAL [facility] [address] [place] [address] Echo Transesophageal (SHABANA) 08/26/20 1150 MR#: [id number] Acct: [id number] Name: DOREEN DENISE Rep #: [id number] : 1960 60 From: Randy Fletcher MD Attending Dr: Dr. Flavia Hopkins MD Status: AD M IN Ordering Dr: Randy Fletcher MD Date: 08/25/20 Location: U Sex: F C Admitted: 08/22/20 Reason For Study: Endocarditis Medication SHABANA probe 6VT-D (SN [id number]) passed with minimal difficulty. No complications were noted. Cetacaine Topical [place] given X3 orally. Versed 3 mg given slow IVP. Fentanyl 50 mcg given slow IVP. Performed a rapid injection of agitated mix of 9 cc saline and 1cc air to assess for atrial septal defect. Left Ventricle Normal LV size. Left ventricular systolic function is normal. The estimated ejection fraction is 60 %. No regional wall motion abnormalities noted. Right Ventricle Normal RV size. Normal systolic function. The right ventricular wall motion is normal. Atria Normal atrial septum. The left atrium is mildly enlarged. Normal right atrium. Mobile mass of the right atrium. Mobile Mass noted measuring 2.5 cm by 1.8cm with peduncle attached to the atrial appendage. Mitral Valve Normal mitral valve. Mild (1+) eccentric mitral valve insufficiency. Tricuspid Valve Normal tricuspid valve. Aortic Valve Normal aortic valve. Trisinus/trileaflet aortic valve. Pulmonic Valve Normal pulmonic valve. Vessels Normal aortic root. The pulmonary artery is normal size. Pericardium No pericardial effusion. Interpretation Summary Normal LV size. Left ventricular systolic function is normal. The estimated ejection fraction is 60 %. Mobile Mass noted measuring 2.5 cm by 1.8cm with peduncle attached to the atrial appendage The left atrium is mildly enlarged. Objective: Vitals: BP (!) 146/74 Pulse 86 Temp 98.8 F (37.1 C) (Temporal) Resp 20 SpO2 96% Pulse Ox: SpO2 Av.3 % Min: 94 % Max: 96 % Supplemental O2: General appearance: No apparent distress,awake alert HEENT: Eyes: No scleral icterus,No pallor Oral: Tongue is semi-moist Cardiovascular: S1S2 heard, RRR Respiratory: Clear to auscultation bilaterally Abdomen: Soft, non-tender, non-distended with normal bowel sounds. Musculoskeletal: No obvious deformities seen Skin: No visible rashes or lesions. Neurology- no focal neurological deficits Extremity- no peripheral edema both lower extremities Assessment Active Problems - Sepsis from infected mediport and endo carditis -Cholelithiasis- no longer having abdominal pain. Tolerating diet well. Hida scan negative -Mild hyponatremia -Chronic anemia Chronic problems -IIDM -HTN -Tobacco use -h/o lymphoma Plan abx per ID picc ordered Dc once outpt abx arranged Cards to eval as well, note SHABANA result. Will get ECG here for our system Advance Directive: Full Code Discharge planning: pENDING NEGATIVE BLOOD CULTURES Ronel Licea MD Division of Hospitalist Medicine Inpatient Medical Services * Dorinda Kitchen RN - 08/29/2020 1:00 PM EST Spoke with Dr. Kowalski from cardiology. He states patient is okay from a cardio standpoint and just needs long-term ATB. Patient to be followed outpatient by cardiology. PICC being placed today for long-term ATB. Updated vocational case manager. * Dorinda Kitchen RN - 08/29/2020 10:44 AM EST Patient has still not been seen by cardiology but cardiology consult has been in for 2 days. Just asked legal secretary to put consult in for them to come see patient BRADY as she has endocarditis and is ontelemetry. Patient also is requesting to take a shower, however she cannot take a shower for safetyreasons until cardiology approves. Will let patient know of shower status. * Radha Holliday DO - 08/28/2020 5:54 PM EST Images from the original note were not included. [facility] - Infectious Diseases Attending Progress Note Subjective: Following for GBS endocarditis. Reviewed interim history and available chart/notes/labsand studies. Patient seen and examined at bedside. Patient without acute complaints at this time. She continues to have back pain, but it is chronic in nature. She continues to deny fever/chills, CP, SOB, abdominal pain, NVDC. Objective: Vitals: BP 132/79 Pulse 83 Temp 97.7 F (36.5 C) (Temporal) Resp 18 SpO2 99% Intake/Output Summary (Last 24 hours) at 08/28/2020 1801 Last data filed at 08/28/2020 0800 Gross per 24 hour Intake 300 ml Output Net 300 ml Physical Exam Constitutional: Appearance: Normal appearance. HENT: Head: Normocephalic and atraumatic. Eyes: General: No scleral icterus. Extraocular Movements: Extraocular movements intact. Conjunctiva/sclera: Conjunctivae normal. Cardiovascular: Rate and Rhythm: Normal rate and regular rhythm. Heart sounds: Normal heart sounds. No murmur. Pulmonary: Effort: Pulmonary effort is normal. No respiratory distress. Breath sounds: Normal breath sounds. No wheezing. Abdominal: General: Abdomen is flat. There is no distension. Palpations: Abdomen is soft. Tenderness: There is no abdominal tenderness. There is no guarding. Musculoskeletal: Normal range of motion. General: No swelling or tenderness. Right lower leg: Edema ( R foot and leg swelling with minor erythema on foot ) present. Skin: General: Skin is warm and dry. Coloration: Skin is not jaundiced. Findings: No lesion or rash. Neurological: General: No focal deficit present. Mental Status: She is alert and oriented to person, place, and time. Cranial Nerves: No cranial nerve deficit. Sensory: No sensory deficit. Motor: No weakness. Psychiatric: Mood and Affect: Mood normal. Behavior: Behavior normal. Thought Content: Thought content normal. Judgment: Judgment normal. Labs: Component Value Date/Time NA 130 (L) 08/27/20206 K 3.5 08/27/20206 CL 97 (L) 08/27/20206 CO2 27 08/27/20206 BUN 7 08/27/20206 CREATININE 0.49 (L) 08/27/20206 GLUCOSE 285 (H) 08/27/20206 CALCIUM 7.4 (L) 08/27/20206 PROT 5.7 (L) 08/27/20206 LABALBU 2.6 (L) 08/27/20206 LABALBU 3.7 02/29/20162103 BILITOT 0.7 08/27/20206 ALKPHOS 105 08/27/20206 AST 30 08/27/20206 ALT 14 08/27/20206 Component Value Date/Time WBC 8.9 08/27/20206 WBC 7.9 02/29/20162103 HGB 8.0 (L) 08/27/20206 HCT 23.2 (L) 08/27/20206 PLT 169 08/27/20206 GRANULOCYTES 86.1 (H) 08/27/20206 LYMPHOPCT 8.3 (L) 08/27/20206 MONOPCT 5.2 08/27/20206 MONOPCT 6.6 02/29/20162103 LABEOS 0.2 (L) 08/27/20206 BASOPCT 0.2 08/27/20206 BASOPCT 1.0 02/29/20162103 NEUTROABS 7.7 (H) 08/27/20206 NEUTROABS 4.2 02/29/20162103 Micro: Blood cultures: Lab Results Component Value Date BC No growth at 1 day. 08/27/2020 BC No growth at 1 day. 08/27/2020 Reviewed all prior imaging. Line(s): PIV (08/26/20) Radiography/Echo/Other: TTE: eustachian valve vegetation SHABANA: mobile mass of R atrium (2.5x1.8) attached to atrial appendage Antimicrobials, Start/End Dates: Vancomycin (08/21/20 - 08/23/20) Zosyn (08/21/20 - 08/23/20) Ceftriaxone (08/23/20 - current) Impression: 1) Strep agalactiae endocarditis 2) Strep agalactiae bacteremia (likely resolved) likely secondary to her med port Plan: -plan to continue ceftriaxone for a total of 4 weeks; patient will likely need PICC prior to discharge -patient states that she will not need med port to be re-inserted as she is not getting any more chemo -follow-up repeat blood cultures; although they were negative on 08/24/20 at [facility], should confirm this before inserting PICC; Blood cx NG 24 hr so far -LE duplex negative -appreciate cardiology recs Electronically signed by Radha Holliday, DO Associated attestation - Bertram Mcmillan MD - 08/29/2020 12:27 AM EST I performed a physical exam fo the patient and discussed her management with the ID team. I reviewed ID note and agree with the documented findings and plan of care. For now plan on up to 4 week course with IV Ceftriaxone. Await Cards input. * Queta Gerardo MD - 08/28/2020 10:40 AM EST Images from the original note were not included. Hospitalist Progress Note 08/28/2020 10:41 AM [phone]: Please page me for patient care issues. [phone]: Please page [facility] night Hospitalist for any issues. Subjective: Admit Date: 08/26/2020 PCP: No primary care provider on file. Room#: 1464/1462X Interval History: Patient seen and examined.I was wearing N95 mask ,goggles,face shield throughout the encounter No new event overnight Denies any fever, chills. She is supposed to take Lantus 60 units at night, Humalog 12 units before each meal, but has not been taking in the recent past after she ran out of that.Sugars running high DIET GENERAL; No data found. No intake or output data in the 24 hours ending 08/28/20 1041 LABS: CBC: Recent Labs 08/27/20 0007 WBC 8.9 RBC 2.71* HGB 8.0* HCT 23.2* MCV 85.7 RDW 15.4* PLT 169 BMP: Recent Labs 08/27/20 0007 NA 130* K 3.5 CL 97* CO2 27 BUN 7 CREATININE 0.49* GLUCOSE 285* CALCIUM 7.4* ANIONGAP 5 LIVER PROFILE: Recent Labs 08/27/20 0007 AST 30 ALT 14 BILITOT 0.7 ALKPHOS 105 LABALBU 2.6* PROT 5.7* PT/INR: No results for input(s): PROTIME, INR in the last 72 hours. CARDIAC ENZYMES: No results for input(s): TROPONINI in the last 72 hours. Procalcitonin: No results found for: PROCAL Objective: Vitals: BP (!) 149/89 Pulse 83 Temp 97.8 F (36.6 C) (Temporal) Resp 18 SpO2 99% Pulse Ox: SpO2 Av.3 % Min: 97 % Max: 100 % Supplemental O2: General appearance: No apparent distress,awake alert HEENT: Eyes: No scleral icterus,No pallor Oral: Tongue is semi-moist Cardiovascular: S1S2 heard, RRR Respiratory: Clear to auscultation bilaterally Abdomen: Soft, non-tender, non-distended with normal bowel sounds. Musculoskeletal: No obvious deformities seen Skin: No visible rashes or lesions. Neurology- no focal neurological deficits Extremity- no peripheral edema both lower extremities Assessment Active Problems - Sepsis from infected mediport and endo carditis -Cholelithiasis- no longer having abdominal pain. Tolerating diet well. Hida scan negative -Mild hyponatremia -Chronic anemia Chronic problems -IIDM -HTN -Tobacco use -h/o lymphoma Plan -continue rocephin, ID Following -F/u repeat blood cx -Blood sugars high-Starting Lantus 25 units at night, Humalog 6 units with each meal. Continue sliding scale. Monitor blood sugars. -Blood pressures controlled-she has hydralazine In her home med list, but she has not been taking it On DVT/ GI prophylaxis Labs ordered for AM Patient was informed about all work up and treatment plan Discussed with nursing staff Advance Directive: Full Code Discharge planning: pENDING NEGATIVE BLOOD CULTURES QUETA GERARDO MD Division of Hospitalist Medicine Inpatient Medical Services * Diana Segura DTR - 08/28/2020 7:35 AM EST Nutrition rescreen completed. Chart reviewed. Patient to be monitored and followed by the diet architecture technician. * Eveline Milton MD - 08/27/2020 9:12 AM EST Department of Internal Medicine General Internal Medicine Attending Progress Note SUBJECTIVE: Pt reports lower back pain, no other complaints. OBJECTIVE Medications Current Facility-Administered Medications: cyclobenzaprine (FLEXERIL) tablet 10 mg, 10 mg, Oral, TID PRN magnesium sulfate 2000 mg in 50 mL IVPB premix, 2,000 mg, Intravenous, Once oxyCODONE-acetaminophen (PERCOCET) 5-325 MG per tablet 1 tablet, 1 tablet, Oral, Q4H PRN sodium chloride flush 0.9 % injection 10 mL, 10 mL, Intravenous, 2 times per day sodium chloride flush 0.9 % injection 10 mL, 10 mL, Intravenous, PRN enoxaparin (LOVENOX) injection 40 mg, 40 mg, Subcutaneous, Daily promethazine (PHENERGAN) tablet 12.5 mg, 12.5 mg, Oral, Q6H PRN OR ondansetron (ZOFRAN) injection 4 mg, 4 mg, Intravenous, Q6H PRN polyethylene glycol (GLYCOLAX) packet 17 g, 17 g, Oral, Daily PRN tiZANidine (ZANAFLEX) tablet 4 mg, 4 mg, Oral, Nightly cefTRIAXone (ROCEPHIN) 2000 mg IVPB in D5W 50ml minibag, 2,000 mg, Intravenous, Q24H glucose (GLUTOSE) 40 % oral gel 15 g, 15 g, Oral, PRN dextrose 50 % IV solution, 12.5 g, Intravenous, PRN glucagon (rDNA) injection 1 mg, 1 mg, Intramuscular, PRN dextrose 5 % solution, 100 mL/hr, Intravenous, PRN insulin lispro (HUMALOG) injection vial 0-6 Units, 0-6 Units, Subcutaneous, TID WC insulin lispro (HUMALOG) injection vial 0-3 Units, 0-3 Units, Subcutaneous, Nightly Physical VITALS: BP 123/89 Pulse 71 Temp 96.9 F (36.1 C) (Temporal) Resp 16 SpO2 100% Patient is alert, awake, oriented x 3 No pallor, Icterus No JVD Heart S1 S2 No murmurs Lungs clear to auscultation Abdomen soft non distended no organomegaly No pedal edema No focal neurological deficits Data CBC with Differential: Lab Results Component Value Date WBC 8.9 08/27/2020 WBC 7.9 02/29/2016 RBC 2.71 08/27/2020 HGB 8.0 08/27/2020 HCT 23.2 08/27/2020 PLT 169 08/27/2020 MCV 85.7 08/27/2020 MCH 29.5 08/27/2020 MCHC 34.4 08/27/2020 RDW 15.4 08/27/2020 LYMPHOPCT 8.3 08/27/2020 MONOPCT 5.2 08/27/2020 MONOPCT 6.6 02/29/2016 BASOPCT 0.2 08/27/2020 BASOPCT 1.0 02/29/2016 MONOSABS 0.5 08/27/2020 MONOSABS 0.5 02/29/2016 LYMPHSABS 0.7 08/27/2020 LYMPHSABS 2.8 02/29/2016 EOSABS 0.0 08/27/2020 EOSABS 0.2 02/29/2016 BASOSABS 0.0 08/27/2020 BASOSABS 0.1 02/29/2016 BMP: Lab Results Component Value Date NA 130 08/27/2020 K 3.5 08/27/2020 CL 97 08/27/2020 CO2 27 08/27/2020 BUN 7 08/27/2020 LABALBU 2.6 08/27/2020 LABALBU 3.7 02/29/2016 CREATININE 0.49 08/27/2020 CALCIUM 7.4 08/27/2020 GFRAA >60 02/29/2016 LABGLOM >60 02/29/2016 GLUCOSE 285 08/27/2020 ASSESSMENT AND PLAN 1. Sepsis from infected mediport and endo carditis. on ceftriaxone. Will continue. Port removed on 08/21/20. Now day #6 IV antibx- will continue ceftriaxone. Results of SHABANA sent over from [facility] which shows mobile mass measuring 2.5cm by 1.8cm with peduncle attached to atrial appendage., will consult ID. 2. Cholelithiasis- no longer having abdominal pain. Tolerating diet well. Hida scan negative 3. Endocarditis- 4. DM- insulin ordered for home use, but patient admits to being noncompliant. Will check sugar, SSI 5. Hx HTN- takes hydralazine daily prn home records. She states she doesn't take normally. VSS. Follow 6. Tobacco use- encourage smoking cessation documented in this encounter* Lizet Church RN - 09/04/2020 8:00 AM EDT Pt stated her Picc line was pulling. Dressing change done again., Bio patch was had dried old bloodon. Blue luman was pulled out about 1/4 of an inch. New dressing applied stat lock moved. Pt statedfeels better not pulling any more. Both luman have brisk blood return. Bruising on the arm from when PICC was inserted. Lizet Moody documented in this encounter* Lizet Church RN - 09/08/2020 8:00 AM EDT Talked to Munira at Dr Gannon office. I removed the band aid over Doreen denise rt chest where they removed infected med port. Site looks WNL. No redness or swelling. New band aid placed. Lizet documented in this encounter* Heidi Martinez RN - 09/11/2020 8:00 AM EDT Patients blood pressure is consistently elevated. Asked patient if she has been taking low dose aspirin and hydralazine. Patient is poor historian and is unsure about hydralazine and reports that shehas not taken low dose aspirin. Patient reports that she currently does not have a PCP. Encouraged patient to obtain one and to contact cardiology Dr. Kowalski, whom consulted when she was IP to discuss hypertension. 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, unspecified Sepsis (HCC) Poor compliance with medication Personal history of noncompliance with medical treatment, presenting hazards to health History of personality disorder Personal history of other mental disorder Tobacco use Tobacco use disorder Cholecystitis Cholecystitis, unspecified COPD (chronic obstructive pulmonary disease) (HCC) Chronic airway obstruction, not elsewhere classified Endocarditis Endocarditis, valve unspecified, unspecified cause Group B streptococcal infection Streptococcus infection in conditions classified elsewhere and of unspecified site, group B Diagnosis Group B streptococcal infection- Primary Streptococcus infection in conditions classified elsewhere and of unspecified site, group B Diagnosis Hyperglycemia- Primary Other abnormal glucose Hypertensive urgency Unspecified essential hypertension Diagnosis Encounter for medication refill- Primary Issue of repeat prescriptions Essential hypertension Unspecified essential hypertension Diagnosis Group B streptococcal infection Streptococcus infection in conditions classified elsewhere and of unspecified site, group B Acute bacterial endocarditis Acute and subacute bacterial endocarditis Port or reservoir infection, subsequent encounter Encounter for long-term (current) use of antibiotics Chief Complaint and Reason for Visit Chief Complaint neck pain Chief Complaint Admit Date L WRIST LESION July 04, 2024 1 :07pm 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 HYPERGLYCEMIA, ADULT FTT September 04 11:55pm Reason for Visit Admit Date Neoplasm of uncertain behavi or of connective and other soft tissue July 04, 2024 1:07pm Neoplasm of uncertain behavior of skin J anuary 2024 1:07pm Acute hyponatremia September 04, 2024 11: 55pm Neoplasm of uncertain behavior of skin M arch 2024 11:55pm Uncontrolled type 2 diabetes mellitus wi th hyperglycemia September 04, 2024 11:55pm Poor compliance with medication September 042024 11:55pm Additional Source Comments INFORMATION SOURCE (unrecogn ized section and content) DATE CREATED AUTHOR 12/14/2017 [facility] DATE CREATED AUTHOR AUTHOR'S ORGANIZ ATION 11/08/2018 [facility] DATE CREATED AUTHOR AUTHOR'S ORGANIZ ATION 11/08/2018 [employer] DATE CREATED AUTHOR AUTHOR'S ORGANIZ ATION 08/09/2021 [facility] DATE CREATED AUTHOR AUTHOR'S ORGANIZ ATION 11/20/2021 [facility] DATE CREATED AUTHOR AUTHOR'S ORGANIZ ATION 05/23/2022 [facility] dical Center DATE CREATED AUTHOR AUTHOR'S ORGANIZ ATION 04/17/2023 [facility] DATE CREATED AUTHOR AUTHOR'S ORGANIZ ATION 10/30/2023 [facility] ([place]) DATE CREATED AUTHOR AUTHOR'S ORGANIZ ATION 05/25/2024 [facility] DATE CREATED AUTHOR AUTHOR'S ORGANIZ ATION 08/14/2024 [facility] DATE CREATED AUTHOR AUTHOR'S ORGANIZ ATION 09/09/2024 [facility] DATE CREATED AUTHOR AUTHOR'S ORGANIZ ATION 11/16/2024 [facility] DATE CREATED AUTHOR AUTHOR'S ORGANIZ ATION 11/20/2024 [facility] DATE CREATED AUTHOR AUTHOR'S ORGANIZ ATION 11/24/2024 [facility] Ordered Prescriptions (unrec ognized section and content) Prescription Sig Dispensed Refills Start Date End Da te cyclobenzaprine (FLEXERIL) 10 MG tablet Take 1 tablet by mouth 3 times daily as needed for Muscle spasms 20 tablet 0 08/29/2020 09/08/2020 insulin glargine (LANTUS SOLOSTAR) 100 UNIT/ML injection pen Inject 25 Units into the skin nightly 5 pen 3 08/29/2020 insulin lispro, 1 Unit Dial, (HUMALOG KWIKPEN) 100 UNIT/ML SOPN Inject 6 Units into the skin 3 times daily (before meals) 5 pen 1 08/29/2020 Prescription Sig Dispensed Refills Start Date End Da te hydroCHLOROthiazide (HYDRODIURIL) 25 MG tablet Take 1 tablet by mouth daily for 7 days 7 tablet 0 09/13/2020 09/20/2020 Prescription Sig Dispensed Refills Start Date End Da te hydroCHLOROthiazide (HYDRODIURIL) 25 MG tablet Take 1 tablet by mouth daily for 10 days 10 tablet 0 09/19/2020 09/29/2020 Prescription Sig Dispensed Refills Start Date End Da te traMADol (ULTRAM) 50 MG tabletIndications:Right flank pain Take 1 tablet by mouth every 4 hours as needed for Pain for up to 3 days. Intended supply: 3 days. Take lowest dose possible to manage pain 12 tablet 0 02/07/2021 02/10/2021 valACYclovir (VALTREX) 1 g tablet Take 1 tablet by mouth 3 times daily for 7 days 21 tablet 0 02/07/2021 02/14/2021 Reason for Visit (unrecogniz ed section and content) Status Reason Specialty Diagnoses / Procedures Re ferred By Contact Referred To Contact Authorized Diagnoses Group B streptococcal infection Bertram Mcmillan MD [address] [place] [address] [place] [address] Reason Comments Hypertension states it has been e levated since admission for medport infection, never treated Rib Pain (injury) fell 1 month ago Reason Comments Medication Refill Status Reason Specialty Diagnoses / Procedures Referre d By Contact Referred To Contact Closed Diagnoses Group B streptococcal infection Bertram Mcmillan MD [address] [place] [address] [place] [address] Reason Comments Flank Pain Reason Comments Tumor/Mass Reason Comments Radio Gen A21 Specialty Diagnoses / Procedures Referred By Contac t Referred To Contact XR IMAGING Diagnoses Localized superficial swelling, mass, or lump Procedures XR WRIST GENERAL 3V PA/LAT/OBL LEFT RADEX WRIST COMPLETE MINIMUM 3 VIEWS Riri Mahan PA-C [address] [address] Phone: tel: fax: XR IMAGING [place] [address] Referral ID Status Reason Start Date Expiration Date V isits Requested Visits Authorized [id number] Closed Auto-Generate d Referral 08/09/2024 09/08/2025 1 1 Reason Comments Results Reason Comments Consult Reason Comments Nm Pet Request Reason Comments Tumor/Mass Reason Comments Diabetes Reason Comments Radiology NM Reason Comments Consult Specialty Diagnoses / Procedures Referred By Contac t Referred To Contact Diagnoses Squamous cell carcinoma, arm, left Cancer related pain Procedures CONSULT TO PALLIATIVE CARE OFFICE/OUTPATIENT NEW HIGH MDM 60 MINUTES Johana Sagastume MD [address] [place] [address] Phone: tel: fax: Referral ID Status Reason Start Date Expiration Date V isits Requested Visits Authorized [id number] Closed PCP Requested Referral 08/31/2024 08/30/2025 1 1 Reason Comments Palliative Care Care Coordination Reason Comments Bronchoscopy Scheduling- CLEARED Initial bronch request Reason Onset Date Comments Refill Request 09/17/2024 Reason Comments Care Coordination Memory impairment, d isorientation, urinating on the floor. Reason Comments Car Hiker - Other Biopsy Reason Comments Care Coordination Reason Comments Appointment Bronchoscopy Scheduling Reason Comments Patient Question Reason Comments Care Coordination Procedure Tomorrow Reason Comments Insurance Authorization Reason Comments Care Coordination Results Reason Comments Established Patient Reason Comments Care Coordination Appointment Reason Comments First Time Treatment Education Reason Onset Date Comments SPP Injectab Oncology/hematology-Treatment Refer ral 11/15/2024 Nivestym 300 mcg Insurance Authorization 11/15/2024 MARYANNE juarez Reason Comments Car Hiker - Other Patient Question Reason Comments Car Hiker - Other Follow up Scheduled Active and Recently Administ ered Medications (unrecognized section and content) Medication Order 02/05/2021 02/06/2021 02/07/2021 0.9 % sodium chloride bolus (COMPLETED) 1,000 mL (15.7 mL/kg), Intravenous, at 2,000 mL/hr, Administer over 0.5 Hours, ONCE, On 02/07/21 at 1100, For 1 dose 1101 (New Bag - Prov ider: Jeffrey Conner RN)1200 (Stopped - Provider: Jeffrey Conner RN) ketorolac (TORADOL) injection 15 mg (COMPLETED) 15 mg, Intravenous, ONCE, On 02/07/21 at 1100, For 1 dose, Do not administer for more than 5 days. 1101 (Given - Provid er: Jeffrey Conner RN) morphine sulfate (PF) injection 4 mg (COMPLETED) 4 mg, Intravenous, ONCE, On 02/07/21 at 1100, For 1 dose, If oral and IV narcotics ordered, use oral first and only use IV if oral is ineffective or cannot take oral. Do Not give oral and IV within 1 hour of each other unless specifically ordered. 1101 (Given - Provid er: Jeffrey Conner RN) ondansetron (ZOFRAN) injection 4 mg (COMPLETED) 4 mg, Intravenous, ONCE, On 02/07/21 at 1100, For 1 dose 1101 (Given - Provid er: Jeffrey Conner RN) sodium chloride flush 0.9 % injection 3 mL(Linked Group 1) 3 mL, Intravenous, EVERY 8 HOURS, First dose on 02/07/21 at 1100, Flush line with 3-5 mL 1100 (Due)1900 (Due) Linked Groups Order Group 1: Saline lock IV (COMPLETED) Routine, CONTINUOUS, Starting on 02/07/21 at 1100, Until Specified And sodium chloride flush 0.9 % injection 3 mLJump to med 3 mL, Intravenous, EVERY 8 HOURS, First dose on 02/07/21 at 1100
Flush line with 3-5 mL
Care Team (unrecognized sect ion and content) Care Team Personnel Name: PHYSICIAN, NONE Position: Physician Member Role: Primary Care Physician Name: NELIDA Farooq: Building Consultant Hamida Redd Position: HIM: Coders Member Role: HIM: Coders Name: LEILANI KAMARA MD Position: ED Physician Member Role: Attending Physician Address: Address: [address] [place] [id number] Care Team Related Persons Name: MONALISA DENISE Name: MONALISA DENISE Name: MONALISA DENISE Name: MONALISA DENISE Name: MONALISA DENISE Name: MONALISA DENISE Name: MONALISA DENISE Name: MONALISA DENISE Name: MONALISA DENISE Name: MONALISA DENISE Name: MONALISA DENISE Name: MONALISA DENISE Name: MONALISA DENISE Name: MONALISA DENISE Address: Home [address] [place] [id number] Address: [facility] [address] [place] [id number] Care Team Personnel Name: PHYSICIAN, PATIENT UNSURE Member Role: Primary Care Physician Name: BI GREENFIELD MD Position: ED Physician Member Role: Attending Physician Address: Address: [address] [address] [place] [address] Care Team Related Persons Name: MONALISA DENISE Name: MONALISA DENISE Name: MONALISA DENISE Name: DENISE, MONALISA Name: DENISE, MONALISA Name: DENISE, MONALISA Name: DENISE, MONALISA Name: DENISE, MONALISA Name: HOWIE MONALISA Name: MONALISA DENISE Name: HOWIE MONALISA Name: MONALISA DENISE Name: MONALISA DENISE Name: DENISE MONALISA Edson Address: Home [address] [place], [place] [id number] Address: Temporary [address] [place], [place] [id number] Care Teams (unrecognized sec tion and content) Team Status: Active Member Role Status Dates No Primary Care Physician Family Provider Active No Primary Care Physician Primary Care Provider Active Team Status: Inactive Member Role Status Dates No Primary Care Physician Primary Care Provider Active Ed Physician Provider Emergency Provider Active [employer] Relationship Specialty Start Date End Date Amrit Martinez MD [facility] [place] [phone] Consulting Hospice & Palliative Medicine 09/14/24 Mirella Bah, RN [address] [place] [address] Specialty Car Hiker Hospice & Palliative Medicine 09/14/24 [employer] Relationship Specialty Start Date End Date Amrit Martinez MD [facility] [place] [phone] Consulting Hospice & Palliative Medicine 09/14/24 Mirella Bah, RN [address] [place] [address] Specialty Car Hiker Hospice & Palliative Medicine 09/14/24 Team Status: Active Member Role Status Dates No Primary Care Physician Primary Care Provider Active Team Status: Inactive Member Role Status Dates No Primary Care Physician Primary Care Provider Active Start: July 04, 2024 End: July 04, 2024 No Primary Care Physician Referring Provider Active Start: July 04, 2024 End: July 04, 2024 Dr. Brigette Cuba MD Attending Provider Active Start: July 04, 2024 End: July 04, 2024 Team Status: Inactive Member Role Status Dates No Primary Care Physician Primary Care Provider Active Start: July 29, 2024 End: July 29, 2024 Dr. Brigette Cuba MD Attending Provider Active Start: July 29, 2024 End: July 29, 2024 Dr. Brigette Cuba MD Referring Provider Active Start: July 29, 2024 End: July 29, 2024 Team Status: Active Member Role Status Dates No Primary Care Physician Primary Care Provider Active Start: September 04, 2024 Dr. Ramez Nuñez MD Emergency Provider Active Start: September 04, 2024 Dr. Isabel Pelaez MD Admit Provider Active St art: September 04, 2024 Dr. Isabel Pelaez MD Attending Provider Active Start: September 04, 2024 Team Status: Inactive Member Role Status Dates No Primary Care Physician Primary Care Provider Active Start: September 04, 2024 End: September 05, 2024 Dr. Ramez Nuñez MD Emergency Provider Active Start: September 04, 2024 End: September 05, 2024 Dr. Isabel Pelaez MD Admit Provider Active St art: September 04, 2024 End: September 05, 2024 Dr. Isabel Pelaez MD Other Provider Active St art: September 04, 2024 End: September 05, 2024 Dr. Huseyin Truong DO Attending Provider Active Start: September 04, 2024 End: September 05, 2024 [employer] Driver Relationship Specialty Start Date End Date Amrit Martinez [facility] [address] [facility] [place] [id number] Consulting Hospice & Palliative Medicine 09/14/24 Mirella Bah, RN [address] [place] [address] Specialty Car Hiker Hospice & Palliative Medicine 09/14/24 [employer] Driver Relationship Specialty Start Date End Date Amrit Martinez MD [address] [place] [id number] Consulting Hospice & Palliative Medicine 09/14/24 Mirella Bah, RN [address] [place] [id number] Specialty Car Hiker Hospice & Palliative Medicine 09/14/24 [place] [address] [place] [address] Specialty Car Hiker Hematology/Oncology 09/20/24 [employer] Relationship Specialty Start Date End Date Amrit Martinez MD [address] [place] [address] Consulting Hospice & Palliative Medicine 09/14/24 Mirella Bah, ADDI [address] [place] [address] Specialty Car Hiker Hospice & Palliative Medicine 09/14/24 [place] [address] [place] [address] Specialty Car Hiker Hematology/Oncology 09/20/24 [employer] Driver Relationship Specialty Start Date End Date Amrit Martinez MD [address] [place] [address] Consulting Hospice & Palliative Medicine 09/14/24 Mirella Bah, RN [address] [place] [address] Specialty Car Hiker Hospice & Palliative Medicine 09/14/24 [place] [address] [place] [address] Specialty Car Hiker Hematology/Oncology 09/20/24 [employer] Driver Relationship Specialty Start Date End Date Amrit Martinez MD [address] [place] [address] Consulting Hospice & Palliative Medicine 09/14/24 Mirella Bah, RN [address] [place] [address] Specialty Car Hiker Hospice & Palliative Medicine 09/14/24 [place] [address] [place] [address] Specialty Car Hiker Hematology/Oncology 09/20/24 [employer] Driver Relationship Specialty Start Date End Date Amrit Martinez MD [address] [place] [address] Consulting Hospice & Palliative Medicine 09/14/24 Mirella Bah, RN [address] [place] [address] Specialty Car Hiker Hospice & Palliative Medicine 09/14/24 [place] [address] [place] [address] Specialty Car Hiker Hematology/Oncology 09/20/24 [employer] Driver Relationship Specialty Start Date End Date Amrit Martinez MD [address] [place] [address] Consulting Hospice & Palliative Medicine 09/14/24 Mirella Bah, ADDI [address] [place] [address] Specialty Car Hiker Hospice & Palliative Medicine 09/14/24 Jeaneth Dimas, ADDI [address] [place] [address] Specialty Car Hiker Hematology/Oncology 09/20/24 [employer] Driver Relationship Specialty Start Date End Date Amrit Martinez MD [address] [place] [address] Consulting Hospice & Palliative Medicine 09/14/24 Mirella Bah, RN [address] [place] [address] Specialty Car Hiker Hospice & Palliative Medicine 09/14/24 [place] [address] [place] [address] Specialty Car Hiker Hematology/Oncology 09/20/24 [employer] Driver Relationship Specialty Start Date End Date Amrit Martinez MD [address] [place] [address] Consulting Hospice & Palliative Medicine 09/14/24 Mirella Bah, RN [address] [place] [address] Specialty Car Hiker Hospice & Palliative Medicine 09/14/24 [place] [address] [place] [address] Specialty Car Hiker Hematology/Oncology 09/20/24 [employer] Driver Relationship Specialty Start Date End Date Amrit Martinez MD [address] [place] [address] Consulting Hospice & Palliative Medicine 09/14/24 Mirella Bah, ADDI [address] [place] [address] Specialty Car Hiker Hospice & Palliative Medicine 09/14/24 [place] [address] [place] [address] Specialty Car Hiker Hematology/Oncology 09/20/24 [employer] Driver Relationship Specialty Start Date End Date Amrit Martinez MD [address] [place] [address] Consulting Hospice & Palliative Medicine 09/14/24 Mirella Bah, ADDI [address] [place] [address] Specialty Car Hiker Hospice & Palliative Medicine 09/14/24 Jeaneth Dimas, ADDI [address] [place] [address] Specialty Car Hiker Hematology/Oncology 09/20/24 [employer] Driver Relationship Specialty Start Date End Date Amrit Martinez MD [address] [place] [address] Consulting Hospice & Palliative Medicine 09/14/24 Mirella Bah, ADDI [address] [place] [address] Specialty Car Hiker Hospice & Palliative Medicine 09/14/24 [place] [address] [place] [address] Specialty Car Hiker Hematology/Oncology 09/20/24 [employer] Driver Relationship Specialty Start Date End Date Amrit Martinez MD [address] [place] [address] Consulting Hospice & Palliative Medicine 09/14/24 Mirella Bah, ADDI [address] [place] [address] Specialty Car Hiker Hospice & Palliative Medicine 09/14/24 [place] [address] [place] [address] Specialty Car Hiker Hematology/Oncology 09/20/24 [employer] Driver Relationship Specialty Start Date End Date Amrit Martinez MD [address] [place] [address] Consulting Hospice & Palliative Medicine 09/14/24 Mirella Bah, ADDI [address] [place] [address] Specialty Car Hiker Hospice & Palliative Medicine 09/14/24 [place] [address] [place] [address] Specialty Car Hiker Hematology/Oncology 09/20/24 [employer] Driver Relationship Specialty Start Date End Date Amrit Martinez MD [address] [place] [address] Consulting Hospice & Palliative Medicine 09/14/24 Mirella Bah, ADDI [address] [place] [address] Specialty Car Hiker Hospice & Palliative Medicine 09/14/24 Jeaneth Dimas, ADDI [address] [place] [address] Specialty Car Hiker Hematology/Oncology 09/20/24 [employer] Driver Relationship Specialty Start Date End Date Amrit Martinez MD [address] [place] [address] Consulting Hospice & Palliative Medicine 09/14/24 Mirella Bah, RN [address] [place] [address] Specialty Car Hiker Hospice & Palliative Medicine 09/14/24 Jeaneth Dimas, ADDI [address] [place] [address] Specialty Car Hiker Hematology/Oncology 09/20/24 Dionne Mckee, RN Specialty Car Hiker Hematology/Oncology 11/19/24 Meche Ga, ADDI Specialty Car Hiker Hematology/Oncology 11/19/24 [place] [address] [place] [address] Hematology/Oncology 11/19/24 Charter [employer] Driver Relationship Specialty Start Date End Date Amrit Martinez MD [address] [place] [address] Consulting Hospice & Palliative Medicine 09/14/24 Mirella Bah, ADDI [address] [place] [address] Specialty Car Hiker Hospice & Palliative Medicine 09/14/24 Jeaneth Dimas, ADDI [address] [place] [address] Specialty Car Hiker Hematology/Oncology 09/20/24 Dionne Mckee, ADDI Specialty Car Hiker Hematology/Oncology 11/19/24 Meche Ga, RN Specialty Car Hiker Hematology/Oncology 11/19/24 [place] [address] [place] [address] Hematology/Oncology 11/19/24 Charter [employer] Driver Relationship Specialty Start Date End Date Amrit Martinez MD [address] [place] [address] Consulting Hospice & Palliative Medicine 09/14/24 Mirella Bah, ADDI [address] [place] [address] Specialty Car Hiker Hospice & Palliative Medicine 09/14/24 Jeaneth Dimas, ADDI [address] [place] [address] Specialty Car Hiker Hematology/Oncology 09/20/24 Dionne Mceke, ADDI Specialty Car Hiker Hematology/Oncology 11/19/24 Meche Ga, ADDI Specialty Car Hiker Hematology/Oncology 11/19/24 [place] [address] [place] [address] Hematology/Oncology 11/19/24 Charter [employer] Driver Relationship Specialty Start Date End Date Amrit Martinez MD [address] [place] [address] Consulting Hospice & Palliative Medicine 09/14/24 Mirella Bah, ADDI [address] [place] [address] Specialty Car Hiker Hospice & Palliative Medicine 09/14/24 Jeaneth Dimas, ADDI [address] [place] [address] Specialty Car Hiker Hematology/Oncology 09/20/24 Dionne Mckee, RN Specialty Car Hiker Hematology/Oncology 11/19/24 Meche Ga, RN Specialty Car Hiker Hematology/Oncology 11/19/24 [place] [address] [place] [address] Hematology/Oncology 11/19/24 Charter [employer] Driver Relationship Specialty Start Date End Date Amrit Martinez MD [address] [place] [address] Consulting Hospice & Palliative Medicine 09/14/24 Mirella Bah, ADDI [address] [place] [address] Specialty Car Hiker Hospice & Palliative Medicine 09/14/24 Jeaneth Dimas, ADDI [address] [place] [address] Specialty Car Hiker Hematology/Oncology 09/20/24 Dionne Mckee, ADDI Specialty Car Hiker Hematology/Oncology 11/19/24 Meche Ga, RN Specialty Car Hiker Hematology/Oncology 11/19/24 [place] [address] [place] [address] Hematology/Oncology 11/19/24 Amaury Fleming MD [address] [place], [place] [address] Physician Radiation Oncology 11/22/24 [employer] Driver Relationship Specialty Start Date End Date Amrit Martinez MD [address] [place] [address] Consulting Hospice & Palliative Medicine 09/14/24 Mirella Bah, ADDI [address] [place] [address] Specialty Car Hiker Hospice & Palliative Medicine 09/14/24 Jeaneth Dimas, ADDI [address] [place] [id number] Specialty Car Hiker Hematology/Oncology 09/20/24 Dionne Mckee, RN Specialty Car Hiker Hematology/Oncology 11/19/24 Meche Ga, ADDI Specialty Car Hiker Hematology/Oncology 11/19/24 [place] [address] [place] [address] Hematology/Oncology 11/19/24 Amaury Fleming MD [address] [place], [place] [address] Physician Radiation Oncology 11/22/24 Goals (unrecognized section and content) Goals may be documented in a n alternate section Source Comments (unrecognize d section and content) In the event this informatio n is protected by the Federal Confidentiality of Alcohol and Drug Abuse Patient Records regulations: The Federal rules restrict any use of the information to criminally investigate or prosecute any alcohol or drug abuse patient.[facility] the event this information is protected by the Federal Confidentiality of Alcohol and Drug Abuse Patient Records regulations: The Federal rules restrict any use of the information to criminally investigate or prosecute any alcohol or drug abuse patient.[facility] the event this information is protected by the Federal Confidentiality of Alcohol and Drug Abuse Patient Records regulations: The Federal rules restrict any use of the information to criminally investigate or prosecute any alcohol or drug abuse patient.[facility] the event this information is protected by the Federal Confidentiality of Alcohol and Drug Abuse Patient Records regulations: The Federal rules restrict any use of the information to criminally investigate or prosecute any alcohol or drug abuse patient.[facility] Hospital[facility] the event this information is protected by the Federal Confidentiality of Alcohol and Drug Abuse Patient Records regulations: The Federal rules restrict any use of the information to criminally investigate or prosecute any alcohol or drug abuse patient.[facility] HospitalIn the event this information is protected by the Federal Confidentiality of Alcohol and Drug Abuse Patient Records regulations: The Federal rules restrict any use of the information to criminally investigate or prosecute any alcohol or drug abuse patient.[facility] HospitalIn the event this information is protected by the Federal Confidentiality of Alcohol and Drug Abuse Patient Records regulations: The Federal rules restrict any use of the information to criminally investigate or prosecute any alcohol or drug abuse patient.[facility] HospitalIn the event this information is protected by the Federal Confidentiality of Alcohol and Drug Abuse Patient Records regulations: The Federal rules restrict any use of the information to criminally investigate or prosecute any alcohol or drug abuse patient.[facility] HospitalIn the event this information is protected by the Federal Confidentiality of Alcohol and Drug Abuse Patient Records regulations: The Federal rules restrict any use of the information to criminally investigate or prosecute any alcohol or drug abuse patient.[facility] HospitalIn the event this information is protected by the Federal Confidentiality of Alcohol and Drug Abuse Patient Records regulations: The Federal rules restrict any use of the information to criminally investigate or prosecute any alcohol or drug abuse patient.[facility] HospitalIn the event this information is protected by the Federal Confidentiality of Alcohol and Drug Abuse Patient Records regulations: The Federal rules restrict any use of the information to criminally investigate or prosecute any alcohol or drug abuse patient.[facility] HospitalIn the event this information is protected by the Federal Confidentiality of Alcohol and Drug Abuse Patient Records regulations: The Federal rules restrict any use of the information to criminally investigate or prosecute any alcohol or drug abuse patient.[facility] HospitalIn the event this information is protected by the Federal Confidentiality of Alcohol and Drug Abuse Patient Records regulations: The Federal rules restrict any use of the information to criminally investigate or prosecute any alcohol or drug abuse patient.[facility] HospitalIn the event this information is protected by the Federal Confidentiality of Alcohol and Drug Abuse Patient Records regulations: The Federal rules restrict any use of the information to criminally investigate or prosecute any alcohol or drug abuse patient.[facility] HospitalIn the event this information is protected by the Federal Confidentiality of Alcohol and Drug Abuse Patient Records regulations: The Federal rules restrict any use of the information to criminally investigate or prosecute any alcohol or drug abuse patient.[facility] HospitalIn the event this information is protected by the Federal Confidentiality of Alcohol and Drug Abuse Patient Records regulations: The Federal rules restrict any use of the information to criminally investigate or prosecute any alcohol or drug abuse patient.[facility] HospitalIn the event this information is protected by the Federal Confidentiality of Alcohol and Drug Abuse Patient Records regulations: The Federal rules restrict any use of the information to criminally investigate or prosecute any alcohol or drug abuse patient.[facility] HospitalIn the event this information is protected by the Federal Confidentiality of Alcohol and Drug Abuse Patient Records regulations: The Federal rules restrict any use of the information to criminally investigate or prosecute any alcohol or drug abuse patient.[facility] the event this information is protected by the Federal Confidentiality of Alcohol and Drug Abuse Patient Records regulations: The Federal rules restrict any use of the information to criminally investigate or prosecute any alcohol or drug abuse patient.[facility] HospitalIn the event this information is protected by the Federal Confidentiality of Alcohol and Drug Abuse Patient Records regulations: The Federal rules restrict any use of the information to criminally investigate or prosecute any alcohol or drug abuse patient.[facility] HospitalIn the event this information is protected by the Federal Confidentiality of Alcohol and Drug Abuse Patient Records regulations: The Federal rules restrict any use of the information to criminally investigate or prosecute any alcohol or drug abuse patient.[facility] HospitalIn the event this information is protected by the Federal Confidentiality of Alcohol and Drug Abuse Patient Records regulations: The Federal rules restrict any use of the information to criminally investigate or prosecute any alcohol or drug abuse patient.[facility] HospitalIn the event this information is protected by the Federal Confidentiality of Alcohol and Drug Abuse Patient Records regulations: The Federal rules restrict any use of the information to criminally investigate or prosecute any alcohol or drug abuse patient.[facility] HospitalIn the event this information is protected by the Federal Confidentiality of Alcohol and Drug Abuse Patient Records regulations: The Federal rules restrict any use of the information to criminally investigate or prosecute any alcohol or drug abuse patient.[facility] HospitalIn the event this information is protected by the Federal Confidentiality of Alcohol and Drug Abuse Patient Records regulations: The Federal rules restrict any use of the information to criminally investigate or prosecute any alcohol or drug abuse patient.[facility] HospitalIn the event this information is protected by the Federal Confidentiality of Alcohol and Drug Abuse Patient Records regulations: The Federal rules restrict any use of the information to criminally investigate or prosecute any alcohol or drug abuse patient.[facility] HospitalIn the event this information is protected by the Federal Confidentiality of Alcohol and Drug Abuse Patient Records regulations: The Federal rules restrict any use of the information to criminally investigate or prosecute any alcohol or drug abuse patient.[facility] HospitalIn the event this information is protected by the Federal Confidentiality of Alcohol and Drug Abuse Patient Records regulations: The Federal rules restrict any use of the information to criminally investigate or prosecute any alcohol or drug abuse patient.[facility] HospitalIn the event this information is protected by the Federal Confidentiality of Alcohol and Drug Abuse Patient Records regulations: The Federal rules restrict any use of the information to criminally investigate or prosecute any alcohol or drug abuse patient.[facility] HospitalIn the event this information is protected by the Federal Confidentiality of Alcohol and Drug Abuse Patient Records regulations: The Federal rules restrict any use of the information to criminally investigate or prosecute any alcohol or drug abuse patient.[facility] HospitalIn the event this information is protected by the Federal Confidentiality of Alcohol and Drug Abuse Patient Records regulations: The Federal rules restrict any use of the information to criminally investigate or prosecute any alcohol or drug abuse patient.[facility] HospitalIn the event this information is protected by the Federal Confidentiality of Alcohol and Drug Abuse Patient Records regulations: The Federal rules restrict any use of the information to criminally investigate or prosecute any alcohol or drug abuse patient.[facility] HospitalIn the event this information is protected by the Federal Confidentiality of Alcohol and Drug Abuse Patient Records regulations: The Federal rules restrict any use of the information to criminally investigate or prosecute any alcohol or drug abuse patient.[facility] HospitalIn the event this information is protected by the Federal Confidentiality of Alcohol and Drug Abuse Patient Records regulations: The Federal rules restrict any use of the information to criminally investigate or prosecute any alcohol or drug abuse patient.[facility] HospitalIn the event this information is protected by the Federal Confidentiality of Alcohol and Drug Abuse Patient Records regulations: The Federal rules restrict any use of the information to criminally investigate or prosecute any alcohol or drug abuse patient.[facility] HospitalIn the event this information is protected by the Federal Confidentiality of Alcohol and Drug Abuse Patient Records regulations: The Federal rules restrict any use of the information to criminally investigate or prosecute any alcohol or drug abuse patient.[facility] HospitalIn the event this information is protected by the Federal Confidentiality of Alcohol and Drug Abuse Patient Records regulations: The Federal rules restrict any use of the information to criminally investigate or prosecute any alcohol or drug abuse patient.[facility] HospitalIn the event this information is protected by the Federal Confidentiality of Alcohol and Drug Abuse Patient Records regulations: The Federal rules restrict any use of the information to criminally investigate or prosecute any alcohol or drug abuse patient.[facility] HospitalIn the event this information is protected by the Federal Confidentiality of Alcohol and Drug Abuse Patient Records regulations: The Federal rules restrict any use of the information to criminally investigate or prosecute any alcohol or drug abuse patient.[facility] HospitalIn the event this information is protected by the Federal Confidentiality of Alcohol and Drug Abuse Patient Records regulations: The Federal rules restrict any use of the information to criminally investigate or prosecute any alcohol or drug abuse patient.[facility] HospitalIn the event this information is protected by the Federal Confidentiality of Alcohol and Drug Abuse Patient Records regulations: The Federal rules restrict any use of the information to criminally investigate or prosecute any alcohol or drug abuse patient.[facility] HospitalIn the event this information is protected by the Federal Confidentiality of Alcohol and Drug Abuse Patient Records regulations: The Federal rules restrict any use of the information to criminally investigate or prosecute any alcohol or drug abuse patient.[facility] HospitalIn the event this information is protected by the Federal Confidentiality of Alcohol and Drug Abuse Patient Records regulations: The Federal rules restrict any use of the information to criminally investigate or prosecute any alcohol or drug abuse patient.[facility] HospitalIn the event this information is protected by the Federal Confidentiality of Alcohol and Drug Abuse Patient Records regulations: The Federal rules restrict any use of the information to criminally investigate or prosecute any alcohol or drug abuse patient.[facility] HospitalIn the event this information is protected by the Federal Confidentiality of Alcohol and Drug Abuse Patient Records regulations: The Federal rules restrict any use of the information to criminally investigate or prosecute any alcohol or drug abuse patient.[facility] HospitalIn the event this information is protected by the Federal Confidentiality of Alcohol and Drug Abuse Patient Records regulations: The Federal rules restrict any use of the information to criminally investigate or prosecute any alcohol or drug abuse patient.[facility] FOR RECORDS PERTAINING TO PATIENTS WHO ARE OR HAVE BEEN ENROLLED IN A CHEMICAL DEPENDENCY/SUBSTANCEABUSE PROGRAM, SOME INFORMATION MAY BE OMITTED. This clinical summary was aggregated from multiple sources. Caution should be exercised in using it in the provision of clinical care. This summary normalizes information from multiple sources, and as a consequence, information in this document may materially change the coding, format and clinical context of patient data. In addition, data may be omitted in some cases. CLINICAL DECISIONS SHOULD BE BASED ON THE PRIMARY CLINICAL RECORDS. [facility]. provides no warranty or guarantee of the accuracy or completeness of information in this document.
[2024-11-26 03:07] LABS: International Normalized Ratio 0.9; Prothrombin Time (Protime)PT. 12.5 SECONDS (11.7-14.9)
[2024-11-26 03:08] LABS: Partial Thromboplast Time 30.9 Seconds (24.1-36.2)
[2024-11-26 03:16] LABS: Differential Indicated MANUAL DIFF; Troponin T High Sensitivity 7 ng/L (<=14)
[2024-11-26 03:25] LABS: Squamous Epithelial Cells - UA 0-5 SEEN /hpf (5-10)
[2024-11-26 03:30] LABS: ALB/GLOB Ratio 1.1 RATIO (0.9-2.4); AST(SGOT) 33 U/L (<=31); Alanine Aminotransfer ALT/SGPT 27 U/L (<=34); Albumin, Serum 3.5 g/dL (3.4-4.8); Alkaline Phosphatase 230 U/L (35-104); Anion Gap 12 (5-15); BUN 21 mg/dL (4-19); BUN/Creat Ratio 39.7 RATIO (10-20); Calcium,Total 10.2 mg/dL (7.6-11.0); Carbon Dioxide 27.9 mmol/L (21.0-32.0); Chloride 96 mmol/L (98-108); Creatinine, Serum 0.54 mg/dL (0.70-1.20); EST Glomerular Filtration Rate 102 (>60); Estimated Creatinine Clearance 62.02 ml/min (50-250); Globulin 3.3 g/dL (2.2-4.2); Glucose 43 mg/dL (70-99); Lactic Acid 1.8 mmol/L (0.0-2.0); Potassium 3.5 mmol/L (3.3-5.1); Protein, Total 6.8 g/dL (5.9-8.4); Sodium Level 136 mmol/L (133-145); Total Bilirubin 0.35 mg/dL (0.00-1.30)
--- NOTE | 2024-11-26 03:35 | RAD_ITS ---
PROCEDURE: CHEST 1 VIEW (PORTABLE) 11/26/2024 REASON FOR EXAM: Shortness of breath. TECHNIQUE: Frontal view of the chest. COMPARISON: 08/22/2020. FINDINGS: The lungs are expanded. There is no demonstrated parenchymal abnormality. There is no demonstrated pleural abnormality. Enlarged cardiac silhouette. Normal mediastinum and jocy. Normal visualized pulmonary arteries. Atheromatous plaques of the visualized aortic arch and descending thoracic aorta. Diffuse spondylosis of the visualized thoracic spine. Normal visualized ribs, clavicles. Degenerative joint disease. There is no demonstrated abnormality of the visualized soft tissue structures of the upper abdomen. RAD/Chest 1 View (Portable) IMPRESSION: No radiographic evidence of an acute bone abnormality. Reading [facility]
[2024-11-26 03:46] LABS: Total Cells Counted 100 (MANUAL DIFF)
[2024-11-26] MEDS: Dextrose 50%-Water 25 GM/50 ML DISP.SYRIN IV (03:46)
[2024-11-26 03:47] LABS: Eosinophil 3 % (0-5); Lymphocyte 43 % (19-41); Monocyte 5 % (0-10); Myelocyte 2 % (0-0); Neutrophil-Band 12 % (0-5); Neutrophil-Segmented 34 % (47-70); Promyelocyte 1 % (0-0)
[2024-11-26 03:49] LABS: Differential Comment SCANNED; Pathologist Review May foll
[2024-11-26 03:50] LABS: Absolute Lymphocyte Count 1.72 X10^3/uL (0.83-4.51); Absolute Neutrophil Count 1.8 X10^3/uL (2.0-7.7)
--- NOTE | 2024-11-26 04:20 | ED.RN ---
This nurse and ADDI Amaya to start another IV and draw blood work. Monique explained to pt and daughter why another IV was warranted. Daughter in agreement. This nurse went to poke pt in Lt AC and pt began to scream and pull away as pt was poked. Immediate flash of blood but IV blew. This nurse found another vein in hand and attempted to poke there but pt pulled away again and started to scream. Daughter began to yell at this nurse and stating I told you people to use one of those ultrasound things. This nurse attempted to explain to daughter the importance of the IV and how pt will need more than just one or 2 d/t medications being ordered and even with the ultrasound it take certain people and other IV's are also needed. Pt daughter still yelling at this nurse and advised that we do not tolerate this behavior. Pt daughter stating numerous times if she leaves her mom will be leaving with her and taking her to [facility]. Dr. Oliveros at bedside. Dr. Oliveros explained that pt would be signing out AMA and how pt is very critical and how it would not be in the best interest of the patient. ADDI Whitney talking to daughter and pt when this nurse left the room.
--- NOTE | 2024-11-26 04:30 | ED.RN ---
0350: This RN went into the room after the patient returned from imaging. The patient was disconnected from the monitor, so this RN went to reconnect the patient and to administer an amp of D5 d/t her critical glucose reading. This RN uncovered the patient's arm to find the IV fpc out of the patient's arm. This RN attempted to float the IV into position and redress the IV. However, this RN was unable to save the line. ADDI Whitney put in the new IV in the other arm, after explaining that we needed an IV and the other one was no longer able to be used. 0430: This RN went into the room to start a new IV d/t multiple drips needed for the patient. This RN brought ADDI Tamayo into the room with me in order to help assist in holding the patient's arm. This RN explained and educated both the patient and the patient's daughter that there was a need for the patient to have multiple medications at the same time, which meant that the patient needed to have multiple IVs. The patient's daughter was previously upset d/t the previous IV needing to be replaced. 0530: This RN went into the room to reconnect the patient's IV fluids. The patient's daughter started to raise her voice at this RN asking why the doctor ordered a CT of the brain when she brought her mother into the ED in order to get her chest pain and SOB checked out. This RN attempted to educate the patient's daughter, however, the patient's daughter continued to talk over this RN. This RN notified the MD of the patient's family complaints.
[2024-11-26] MEDS: Cefepime HCl 2 GM in 0.9% Normal Saline (100mL MB+) 100 ML IV (04:32)
--- NOTE | 2024-11-26 04:35 | ED.RN ---
RN entered patients room for assistance for an IV. Percy Tamayo x2 unsuccessful IV attempt. Patients daughter Maribel yelling at Roni stating I told you guys you had one chance to get an IV without ultrasound. She has been poked and prodded and you keep doing it. How many times are you going to do this? Dr. Oliveros requesting Maribel to calm down and have a seat. PERCY Amaya explained to patient and daughter she needs at least one more IV due to 2 antibiotics, dextrose and IV fluids. Maribel agreeable to another IV. Patient continues to refuse IV. This RN placed tourniquet on right forearm. patient continues to move arm while looking for vein. Rn requests patient to remain still. Patient beings to yell at RN I have a fucking itch in my nose. I need my arm. Tourniquet removed. Patient refusing a second IV at this time. Patient states she would like Maribel (her daughter) to take her home. Maribel states If we leave here, I am taking you to [facility] and they will sedate you. Dr. Oliveros aware of patient refusing second IV
--- NOTE | 2024-11-26 04:37 | CT_ITS ---
PROCEDURE: CHEST WITHOUT CONTRAST 11/26/2024 REASON FOR EXAM: SOB TECHNIQUE: Chest CT without contrast. Coronal and Sagittal reconstruction series were provided. One or more dose reduction techniques were used (e.g., Automated exposure control, adjustment of the mA and/or kV according to patient size, use of iterative reconstruction technique RADIATION DOSE SUMMARY: CTDlvol: 19.8 mGy DLP: 584 mGycm COMPARISON: Chest radiograph on 11/26/2024. FINDINGS: Subsegmental atelectasis of the right lower lobe. Associated endobronchial lesion is not excluded. Mild emphysema. Mild osteopenia. Moderate diffuse spondylosis. Increased dorsal kyphosis. Moderate coronary artery calcifications. Periphery calcified left thyroid lobe nodule is noted measuring 1.3 cm. No tracheal narrowing or deviation is seen. Subacute healing fractures in the axillary portions of the right 4th, 5th, 6 and 7th ribs. Normal unenhanced main pulmonary artery and right and left pulmonary arteries. Normal bilateral peripheral pulmonary arteries. Normal thoracic aorta and visualized great vessels. There is no demonstrated aortic aneurysm. Normal heart and pericardium. Normal mediastinum. Normal hilar regions. Normal visualized trachea and thickened bronchi. Normal pleura. CT/Chest without Contrast IMPRESSION: Coronary artery calcification (CAC) is is present Subsegmental atelectasis of the right lower lobe. Associated endobronchial lesi on is not excluded. Mild emphysema. Mild osteopenia. Moderate diffuse spondylosis. Increased dorsal kyphosis. Moderate coronary artery calcifications. Periphery calcified left thyroid lobe nodule is noted measuring 1.3 cm. No tra cheal narrowing or deviation is seen. Subacute healing fractures in the axillary portions of the right 4th, 5th, 6 an d 7th ribs. Reading Location[facility] [place] [place]
--- NOTE | 2024-11-26 04:37 | CT_ITS ---
PROCEDURE: ABDOMEN/PELVIS WITHOUT CONT 11/26/2024 REASON FOR EXAM: CONSTIPATION, HYPOTHERMIC TECHNIQUE: Abdomen and pelvis CT without intravenous contrast. Noncontrast technique limits evaluation of the abdominal and pelvic viscera. Coronal and Sagittal reconstruction series were provided. One or more dose reduction techniques were used (e.g., Automated exposure control, adjustment of the mA and/or kV according to patient size, use of iterative reconstruction technique). PATIENT PREPARATION: Per protocol ORAL CONTRAST TYPE: None. COMPARISON: CT scan on 08/22/2020. FINDINGS: Interval appearance of subsegmental atelectasis/consolidation in the right lower lobe. Associated pneumonia is not excluded. Increased hepatomegaly. Interval appearance of multiple heterogeneous metastatic necrotic liver lesions with the largest in the right hepatic lobe measuring 7.8 x 5.3 cm. Simple cyst is noted in the lower pole of the left kidney measuring 3.5 cm. Cholelithiasis without acute cholecystitis. Alarcon catheter balloon is seen in the bladder. Uncomplicated colonic diverticulosis. Moderate amount of fecal residue in the large bowels. Increased hepatomegaly. Normal extrahepatic biliary system. Normal unenhanced spleen. Normal pancreas. Normal bilateral adrenal glands. Normal size of the right kidney. There is no right renal mass. There are no right renal calculi. There is no right hydronephrosis. Normal visualized right ureter. Normal size of the left kidney. There is no left renal mass. There are no left renal calculi. There is no left hydronephrosis. Normal visualized left ureter. Normal visualized stomach. Normal small intestine. The appendix is visualized and appears normal. There is no demonstrated peritoneal fluid. Calcified atheromatous plaques of the abdominal aorta. Normal inferior vena cava. Normal retroperitoneum. There is no pelvic mass lesion or lymphadenopathy. There is no pelvic fluid. Normal abdominal wall. CT/Abdomen/Pelvis without Cont IMPRESSION: Interval appearance of subsegmental atelectasis/consolidation in the right lowe r lobe. Associated pneumonia is not excluded. Increased hepatomegaly. Interval appearance of multiple heterogeneous metastatic necrotic liver lesions with the largest in the right hepatic lobe measuring 7.8 x 5.3 cm. Simple cyst is noted in the lower pole of the left kidney measuring 3.5 cm. Cholelithiasis without acute cholecystitis. Alarcon catheter balloon is seen in the bladder. Uncomplicated colonic diverticulosis. Moderate amount of fecal residue in the large bowels. Increased hepatomegaly. Reading Location[facility]
[2024-11-26 05:17] LABS: Troponin T High Sens 2 HR 6 ng/L (<=14)
[2024-11-26 05:31] LABS: Glucose 111 mg/dL (70-99)
[2024-11-26] MEDS: Vancomycin HCl 1,500 MG in 0.9% Normal Saline (500mL Bag) 500 ML 250 MG IV (05:54)
[2024-11-26 05:56] LABS: Free T3 1.8 pg/mL (2.18-3.98); Thyroid Stim Hormone (TSH) 0.742 uIU/mL (0.300-4.200)
[2024-11-26] MEDS: Pantoprazole Sodium 40 MG Tablet PO (06:30)
[2024-11-26] MEDS: dexAMETHasone 4 MG Tablet 6 MG PO ×2 (07:33→14:34)
[2024-11-26] MEDS: levETIRAcetam 500 MG Tablet PO (07:33)
--- NOTE | 2024-11-26 08:11 | PCM.HP.STD ---
[facility] - [facility] General Date of Service: 11/26/24 Chief Complaint: shortness of breath. [facility] Narrative TRENA DENISE, is a 64 F who presents with shortness of breath. Patient is was notably hypothermic with a temperature of 34.5. Patient was also hypoglycemic down into the 40s and did receive dextrose and then went up to the 111's. Patient underwent a CT of her chest abdomen pelvis. Patient has a very large hepatic mass with numerous other hepatic metastases. Patient also has an effusion in her right lower lobe with possible infiltrate and patient had what appeared to be multiple metastatic lesions within her brain with vasogenic edema. Patient was just discharged from a [facility] and was discharged just last week and patient had an MRI of her brain which I was able to see through [facility] and showed multiple metastatic lesions with vasogenic edema. Patient was on dexamethasone which she continues to take. The hospital service was contacted for admission. I spoke with Dr. Oliveros and expressed concern about the vasogenic edema noted on the CAT scan. I was informed by him that this is not new and that she is being treated for it. I requested referral to tertiary facility where she had just come from to verify that to see if patient should be transferred given her brain masses and vasogenic and he refused. Stating that he was not going [place]. I asked him if he was refusing to call other institutions and he was refusing because he was at the end of his shift. I informed him that I would see the patient in the emergency room and make determination with the next steps would be. Spoke with the patient and she was alert and oriented x 3. She understands that she has stage IV cancer with metastatic lesions in her brain as well as her lung she also has edema in her brain. When I first walked into the room she said to me when walked in the room was asking when she could go home. So I talked to her about the extensive nature of her cancer and her shortened life expectancy given its apparent aggressive nature. I mentioned hospice to her and about the possibility of hospice at home. Patient was actually open to discussing with hospice and having hospice at home. She lives with her daughter. Spoke to the patient that we could bring her in if she is not wanting to pursue additional aggressive measures regards to her cancer at this time. She is not and is open to discussing with hospice with the patient will be brought into [facility]. [facility] Medical History Acute hyponatremia Poor compliance with medication History of pneumonia History of diabetes mellitus History of cancer Endocarditis port placement HTN (hypertension) DLBCL (diffuse large B cell lymphoma) Neck mass Diabetes COPD (chronic obstructive pulmonary disease) Tobacco use disorder History of personality disorder Home Medications ?Medication ?Instructions ?Recorded ?Last Taken ?Type pen needle, diabetic 31 gauge x #100 ea 09/05/24 Unknown Rx 1/3 dexamethasone 6 mg tablet 6 mg PO Q12H 11/26/24 Unknown History insulin NPH-regular 70-30 U-100 50 unit subcut QPM 11/26/24 Unknown History insulin 100 unit/mL subcutaneous pen (Novolin 70-30 FlexPen U-100 Insulin) insulin NPH-regular 70-30 U-100 70 unit subcut DAILY 11/26/24 Unknown History insulin 100 unit/mL subcutaneous pen (Novolin 70-30 FlexPen U-100 Insulin) levetiracetam 500 mg tablet 500 mg PO Q12H 11/26/24 Unknown History olanzapine 5 mg disintegrating 5 mg PO QHS 11/26/24 Unknown History tablet ondansetron HCl 8 mg tablet 8 mg PO Q8H 11/26/24 Unknown History pantoprazole 40 mg tablet,delayed 40 mg PO DAILY 11/26/24 Unknown History release prochlorperazine maleate 10 mg 10 mg PO Q6H PRN 11/26/24 Unknown History tablet sulfamethoxazole 800 1 tab PO MOWEFR 11/26/24 Unknown History mg-trimethoprim 160 mg tablet Allergy/AdvReac Type Severity Reaction Status Date / Time acetaminophen (From Vicodin) Allergy Severe Swelling Verified 11/26/24 00:58 hydrocodone bitartrate (From Allergy Severe Swelling Verified 11/26/24 00:58 Vicodin) Family History Mother Brain cancer Father Throat cancer Surgical History History of lymph node biopsy History of colonoscopy History of esophagogastroduodenoscopy (EGD) Status post myringotomy with insertion of tube History of section Social History household members: none Smoking Status: Current every day smoker tobacco type: cigarettes quit status: considering quitting alcohol intake: current alcohol intake frequency: holidays/special occasions only substance use type: other details: Methamphetamine/cocaine/cannabis noted previously. additional social history: pt admits to vaping, using marijuana use, edibles, aspirin and ibuprofen Vital Signs Vital Signs Vital Signs: 11/26/24 00:59 11/26/24 00:59 11/26/24 01:18 Temperature 36.8 C 36.8 C Temperature Source Oral Oral Pulse Rate 90 90 Respiratory Rate 20 H 20 H Respiratory Effort Normal Non-Labored Respiratory Depth Respiratory Pattern Normal Blood Pressure 104/73 104/73 Blood Pressure Mean 83 83 Pulse Ox 97 97 Oxygen Delivery Method Room Air Room Air 11/26/24 01:18 11/26/24 02:00 11/26/24 02:07 Temperature 36.7 C Temperature Source Oral Pulse Rate 70 70 Respiratory Rate 18 19 H Respiratory Effort Normal Non-Labored Respiratory Depth Normal Respiratory Pattern Normal Blood Pressure 154/86 H 154/86 H Blood Pressure Mean 108 108 Pulse Ox 97 97 Oxygen Delivery Method Room Air Room Air 11/26/24 02:34 11/26/24 02:46 11/26/24 03:00 Temperature 34.9 C L Temperature Source Core Pulse Rate 98 77 Respiratory Rate 22 H 20 H Respiratory Effort Respiratory Depth Respiratory Pattern Blood Pressure 119/71 Blood Pressure Mean 87 Pulse Ox 97 97 Oxygen Delivery Method Room Air Room Air 11/26/24 04:00 11/26/24 05:00 11/26/24 06:00 Temperature 34.5 C L 35.3 C L 35.5 C L Temperature Source Core Core Core Pulse Rate 63 78 80 Respiratory Rate 18 18 18 Respiratory Effort Respiratory Depth Respiratory Pattern Blood Pressure 96/70 109/70 103/67 Blood Pressure Mean 78 83 79 Pulse Ox 100 95 95 Oxygen Delivery Method Room Air Room Air Room Air 11/26/24 07:00 11/26/24 07:26 11/26/24 08:00 Temperature 36.1 C L 36.3 C L 36.6 C Temperature Source Core Core Pulse Rate 79 96 90 Respiratory Rate 18 16 16 Respiratory Effort Respiratory Depth Respiratory Pattern Blood Pressure 101/62 101/62 99/70 Blood Pressure Mean 75 75 79 Pulse Ox 98 96 97 Oxygen Delivery Method Room Air Room Air Weight Weight: 56.79 kg Body Mass Index (BMI) 19.5 Physical Exam Const alert and no apparent distress Constitutional Narrative: awake on Arun Hugger. HEENT normocephalic and head/scalp atraumatic Resp normal respiratory effort, no retractions, no use of accessory muscles and clear to auscultation bilaterally Cardio regular rate, regular rhythm, S1 normal heart sound and S2 normal heart sound GI normal to inspection, nondistended, normoactive bowel sounds, soft to palpation, non-tender and non-distended Extremity normal to inspection and no clubbing, cyanosis or edema Neuro Sensorium / Orientation: awake, alert, oriented to person, oriented to place and oriented to time Psych Psych Narrative: anxious Results Lab / Micro Data 11/26/24 02:30 11/26/24 04:45 Labs: Laboratory Results - last 24 hr 11/26/24 02:30: WBC 4.0 L, RBC 3.46 L, Hgb 9.7 L, Hct 28.4 L, MCV 82.1, MCH 28.0, MCHC 34.2, RDW Std Deviation 46.2 H, RDW Coeff of Devi 16.2 H, Plt Count 205, MPV 10.3, Neut % (Auto) Not Reportable, Absolute Neuts (auto) 1.8 L, Absolute Lymphs (auto) 1.72, Total Counted 100, Neutrophils % (Manual) 34 L, Band Neutrophils % 12 H, Lymphocytes % (Manual) 43 H, Monocytes % (Manual) 5, Eosinophils % (Manual) 3, Myelocytes % 2 H, Promyelocytes % 1 H, Differential Comment SCANNED, Diff Path Review October, PT 12.5, INR 0.9, APTT 30.9, Sodium 136, Potassium 3.5, Chloride 96 L, Carbon Dioxide 27.9, Anion Gap 12, BUN 21 H, Creatinine 0.54 L, Estim Creat Clear Calc 62.02, Est GFR (MDRD) Non-Af 102, BUN/Creatinine Ratio 39.7 H, Glucose 43 L*, Lactic Acid 1.8, Calcium 10.2, Total Bilirubin 0.35, AST 33 H, ALT 27, Alkaline Phosphatase 230 H, Troponin T High Sens 7, Total Protein 6.8, Albumin 3.5, Globulin 3.3, Albumin/Globulin Ratio 1.1 11/26/24 02:39: Urine Color Yellow, Urine Clarity Clear, Urine pH 7.0, Ur Specific [place] 1.005, Urine Protein Negative, Urine Glucose (UA) 100 H, Urine Ketones Negative, Urine Occult Blood Negative, Urine Nitrite Negative, Urine Bilirubin Negative, Urine Urobilinogen Normal, Ur Leukocyte Esterase Negative, Urine RBC 0 SEEN, Urine WBC 0 SEEN, Ur Squamous Epith Cells 0-5 SEEN, Urine Bacteria 0 SEEN, Urine Mucus 0 SEEN 11/26/24 04:45: Glucose 111 H, Troponin T Hi Sens 2 Hr 6, TSH 0.742, Free T4 1.30, Free T3 pg/dL 1.8 L Micro: Microbiology 11/26/24 02:30 Mucosa - Nose SARS-CoV-2, Influenza & RSV (PCR) - Final ABG Data ABG results: ABG 11/26/24 02:36 Specimen Type ZONIA Sample Site Not entered VBG pH 7.49 H VBG pO2 65 H VBG HCO3 34 H VBG Total CO2 35 H VBG O2 Sat (Calc) 94 H VBG Base Excess 10 H POC Mix VBG pCO2 Pt Tmp 43.8 O2 Delivery Device Room Air Imaging Radiology Impression Brain CT 11/26/24 02:15 IMPRESSION: Scattered ill-defined hypodense foci are noted of the little-white matter junction of the supratentorial and infratentorial brain parenchyma with associated mild multifocal edema. Associated metastatic brain disease is not excluded. No associated ventricular compression, midline shift or brain herniation. [facility] 11/26/24 03:35 IMPRESSION: No radiographic evidence of an acute bone abnormality. Reading Location[facility] Abdomen/Pelvis CT 11/26/24 04:37 IMPRESSION: Interval appearance of subsegmental atelectasis/consolidation in the right lower lobe. Associated pneumonia is not excluded. Increased hepatomegaly. Interval appearance of multiple heterogeneous metastatic necrotic liver lesions with the largest in the right hepatic lobe measuring 7.8 x 5.3 cm. Simple cyst is noted in the lower pole of the left kidney measuring 3.5 cm. Cholelithiasis without acute cholecystitis. Alarcon catheter balloon is seen in the bladder. Uncomplicated colonic diverticulosis. Moderate amount of fecal residue in the large bowels. Increased hepatomegaly. [facility] 11/26/24 04:37 IMPRESSION: Coronary artery calcification (CAC) is is present Subsegmental atelectasis of the right lower lobe. Associated endobronchial lesion is not excluded. Mild emphysema. Mild osteopenia. Moderate diffuse spondylosis. Increased dorsal kyphosis. Moderate coronary artery calcifications. Periphery calcified left thyroid lobe nodule is noted measuring 1.3 cm. No tracheal narrowing or deviation is seen. Subacute healing fractures in the axillary portions of the right 4th, 5th, 6 and 7th ribs. [facility] Assessment & Plan Assessment/Plan (1) Pneumonia: PLAN: Vs compressive ATX from effusion on pip/tazo and vancomycin (2) Hypothermia: PLAN: possibly related with PNA. on Arun Huvicenteer (3) Hypoglycemia: PLAN: iatrogenic from insulin, complicated by likely poor consumption. Received D5 infusion. (4) Metastatic lung cancer (metastasis from lung to other site): PLAN: Reviewed through [facility]: patient w SCLC of right lung. MRI brain 11/14 showing multiple metastaic lesion with vasogenic edema. Pt on dexamethasone and levetiracetam. Pt was to have WBR on 11/22. Also, CT A/P shows multiple hepatic metastases with the largest being 7.8 x 5.3cm PLAN: Plan VTE prophylaxis: SCDs given brain lesions. Code status: DW pt, DNRCCA. Discussed transfer pt to tertiary facility where she could receive her chemo/immunotherapy/XRT v admit here, see hospice and work on a plan for home with hospice. She chose the latter; therefore, no indication to transfer to tertiary facility given her current preference at this time. Charges/Coding Visit Charges Inpatient E&M: 71350 Init Hosp L3
--- NOTE | 2024-11-26 11:34 | PCM.RX.CS ---
Consult Antibiotic Management Pharmacy has been consulted to manage selected antibiotic: Vancomycin Type of Intervention Type of Consult: New start Suspected Infection Suspected Infection: Pneumonia Prior Doses of Antibiotics Prior Doses of Antibiotics Received/Current Regimen: Vancomycin 1500 mg IV x 1 given 11/26/24 @ 0554 Labs Labs: Sodium 136 mmol/L (133-145) 11/26/24 02:30 Potassium 3.5 mmol/L (3.3-5.1) 11/26/24 02:30 Chloride 96 mmol/L (98-108) L 11/26/24 02:30 Carbon Dioxide 27.9 mmol/L (21.0-32.0) 11/26/24 02:30 Anion Gap 12 (5-15) 11/26/24 02:30 BUN 21 mg/dL (4-19) H 11/26/24 02:30 Creatinine 0.54 mg/dL (0.70-1.20) L 11/26/24 02:30 Est GFR (MDRD) Non-Af 102 (>60) 11/26/24 02:30 BUN/Creatinine Ratio 39.7 RATIO (10-20) H 11/26/24 02:30 Glucose 111 mg/dL (70-99) H 11/26/24 04:45 Microbiology Microbiology: Microbiology 11/26/24 02:30 Mucosa - Nose SARS-CoV-2, Influenza & RSV (PCR) - Final Dosing Weight Weight used for dosin kg Estimated Creatinine Clearance Estimated Creatinine Clearance: ~ 62 Goal Trough Goal Trough: 15-20 mcg/mL Pharmacy Plan for Drug Dosing Pharmacy Plan for Drug Dosing: Vancomycin 1500 mg IV x 1 followed by 750 mg Q12H Pharmacy Service will continue to monitor and adjust dosing as required. Follow-Up Labs Follow-Up Labs: Trough: Vancomycin Date/Time Labs Ordered Labs to be done on [date and time ordered]: 11/27/24 @ 2539
--- NOTE | 2024-11-26 13:46 | NURSING ---
Family at bedside, daughter asked this nurse multiple questions regarding patients care from previously in ER to now on current floor. She proceeded to ask why the patient has had multiple scans since arrival in hospital and questioned why patient would be treated with antibiotics. Daughter continued and asked if it would be possible to speak with the patients doctor on the unit. Daughter continued to mention that she has started recording the doctors when they talk because she feels that there are many different stories or changed stories in the past. This nurse let daughter know she would reach out with her DrAylin which was Dr. Pulido and see if he was available to speak with family at this time. Dr. Pulido notified, will be in to speak with family in about 30 minutes. Notified family that the doctor would be up to speak with them within 30 minutes- Daughter alerts this nurse that she is currently on the phone with Oncology- Dr. Correa- daughter states that they were wanting to speak with who is overseeing her mothers care- This nurse asked the sales representative [employer] on the phone if there was a direct number for the hospitalist to reach Dr. Correa at- [employer] representative [employer] on the phone- who did not appear to be the gave phone number [phone]. Dr. Pulido notified of information.
--- NOTE | 2024-11-26 15:03 | PCM.DC.SUM ---
Providers Date of Admission: 11/26/24 Primary Care Physician: No Primary Care Phys Reason For Visit: PNEUMONIA Diagnosis Discharge Diagnosis (1) Pneumonia: Status: Acute Code(s): J18.9 - Pneumonia, unspecified organism Plan: Vs compressive ATX from effusion on pip/tazo and vancomycin (2) Hypothermia: Status: Acute Code(s): T68.XXXA - Hypothermia, initial encounter Plan: possibly related with PNA. on Arun Hugger (3) Hypoglycemia: Status: Acute Code(s): E16.2 - Hypoglycemia, unspecified Plan: iatrogenic from insulin, complicated by likely poor consumption. Received D5 infusion. (4) Metastatic lung cancer (metastasis from lung to other site): Status: Acute Code(s): C34.90 - Malignant neoplasm of unspecified part of unspecified bronchus or lung Plan: Reviewed through [facility]: patient w SCLC of right lung. MRI brain 11/14 showing multiple metastaic lesion with vasogenic edema. Pt on dexamethasone and levetiracetam. Pt was to have WBR on 11/22. Also, CT A/P shows multiple hepatic metastases with the largest being 7.8 x 5.3cm Plan VTE prophylaxis: SCDs given brain lesions. Code status: DW pt, DNRCCA. Discussed transfer pt to tertiary facility where she could receive her chemo/immunotherapy/XRT v admit here, see hospice and work on a plan for home with hospice. She chose the latter; therefore, no indication to transfer to tertiary facility given her current preference at this time. Medications at Discharge Home Medications pen needle, diabetic 31 gauge x 1/3 #100 ea 09/05/24 dexamethasone 6 mg tablet 6 mg PO Q12H 11/26/24 insulin NPH-regular 70-30 U-100 insulin 100 unit/mL subcutaneous pen (Novolin 70-30 FlexPen U-100 Insulin) 50 unit subcut QPM 11/26/24 insulin NPH-regular 70-30 U-100 insulin 100 unit/mL subcutaneous pen (Novolin 70-30 FlexPen U-100 Insulin) 70 unit subcut DAILY 11/26/24 levetiracetam 500 mg tablet 500 mg PO Q12H 11/26/24 olanzapine 5 mg disintegrating tablet 5 mg PO Q8H PRN Agitation 11/26/24 ondansetron HCl 8 mg tablet 8 mg PO Q8H 11/26/24 pantoprazole 40 mg tablet,delayed release 40 mg PO DAILY 11/26/24 prochlorperazine maleate 10 mg tablet 10 mg PO Q6H PRN 11/26/24 sulfamethoxazole 800 mg-trimethoprim 160 mg tablet 1 tab PO MOWEFR 11/26/24 Hospital Course Operations None Procedures None Summary of Care Provided Minutes Spent on Discharge: 80 Hospital Course: Patient came in with complaints of shortness of breath. CAT scan showed right lower lobe pleural effusion and questionable pneumonia versus compressive atelectasis. But patient was hypothermic upon arrival with a temp of 34.5 Celsius. Patient was started on broad-spectrum antibiotics for underlying infection. And I was called as the hospitalist to admit this patient. Patient had a CAT scan of her brain that showed vasogenic edema. MRI of the brain that she had had on the did show vasogenic edema. I was concerned as a [facility] that we would not have all the resources available and did request transfer though that was declined to do so by the ED physician. So I spoke with the patient and assessed her orientation and she was oriented x 3 and and understood that she had metastatic cancer with metastasis to her brain and liver. I told her if she wants to continue with aggressive medical treatment that she should be transferred to a tertiary facility. I said that she wanted to have comfort measures and try to have comfort at home then hospice would be the way to go and we can have hospice see her and see if they can arrange hospice care at home. Patient agreed and then patient was admitted here rather than attempting to transfer her. I told her that we treat her for the underlying infection in the meantime. Addition patient did have hypoglycemia as she was taking her insulin and per her daughter was eating well. Later I was asked to go speak with the patient's daughter in the room because they had questions. I received a text message with the, what I presume is the patient's oncologist, Dr. Correa. In that short period of time a had not called the physician but I went in to speak to the patient's family. The patient's sister, who is a power of patent prosecution attorney was present and called the patient's daughter and had me speak with the patient's daughter, [place], over the cell phone. I explained the scenario that if the patient wanted aggressive treatment that she should be transferred or the patient chose to be admitted and see hospice while she was here. The daughter who was ordering coffee somewhere was disturbed by the fact that the we were saying that the patient was being aggressive. I did not realize at the moment that I had said aggressive treatment and the daughter who was not hearing me out completely for what ever reason thought I said the patient was aggressive. I clarified that further that the aggressive was treatment, not the patient. She said that there was concern for pneumonia during the last admission and was on antibiotics and asked how I knew the patient had pneumonia. I told her that I did not know that the patient had pneumonia, but I was concerned given the CT finding (which could have been compressive atelectasis), hypothermia and would elect to treat her for pneumonia. The daughter became irate and saying that the ED physician did not feel that the patient was appropriate. She then said she was coming in and then hung up. So I was in the patient room speaking with the patient's sister where the patient's daughter walked right past me, not looking at me, nor speaking directly towards and stated that they are taken the patient out of the hospital and taking her up to [place]. So I left the room and came back shortly afterwards with the patient's nurse and were clarifying to the patient as well as the patient's sister and daughter that they were going to be leaving AGAINST MEDICAL ADVICE. The daughter stated that with all all the physicians that have been involved in the patient's care that I am the first 1 to bring up hospice. The daughter asked if I reviewed all or every medical record that the patient had (the daughter said that she reviewed all the notes). I told her that I had not but I did review the imaging with the MRI as well as oncology notes and additional other progress notes. She was asking that medically I felt that she was appropriate to make decisions. She asked if I had called the physician (Dr. Correa), I told her I had not (I was notified of Dr. Correa's number at [id number], was working on discharging other patients, then went to discuss with Ms. Sweeney's family and was waiting to discuss with them before I would call Dr. Correa). The daughter did endorse that she was recording this conversation and was actually taking a video of it. I clarified that she was recording a conversation without my permission to which her response was that she was holding the camera facing the floor. I clarified that they were going AGAINST MEDICAL ADVICE from the hospital which the daughter did not say anything and then the patient's sister said that they were indeed leaving AGAINST MEDICAL ADVICE. I verified with the patient who agreed with leaving AGAINST MEDICAL ADVICE. I told them that we discouraged leaving AMA that and encouraged transfer rather than leaving AGAINST MEDICAL ADVICE. They did sign AMA paperwork and did leave AGAINST MEDICAL ADVICE. Patient did have her midline as well as Alarcon catheter removed prior to discharge. They said they were going to [place] for further care. I did apprise Roslyn Orellana, of risk managment, of this case. Weight / BMI Weight Weight: 56.79 kg Body Mass Index (BMI) 19.5 ABG / Lab / Microbiology Data 11/26/24 02:30 11/26/24 04:45 Laboratory: Laboratory Results - last 24 hr 11/26/24 02:30: WBC 4.0 L, RBC 3.46 L, Hgb 9.7 L, Hct 28.4 L, MCV 82.1, MCH 28.0, MCHC 34.2, RDW Std Deviation 46.2 H, RDW Coeff of Devi 16.2 H, Plt Count 205, MPV 10.3, Neut % (Auto) Not Reportable, Absolute Neuts (auto) 1.8 L, Absolute Lymphs (auto) 1.72, Total Counted 100, Neutrophils % (Manual) 34 L, Band Neutrophils % 12 H, Lymphocytes % (Manual) 43 H, Monocytes % (Manual) 5, Eosinophils % (Manual) 3, Myelocytes % 2 H, Promyelocytes % 1 H, Differential Comment SCANNED, Diff Path Review October, PT 12.5, INR 0.9, APTT 30.9, Sodium 136, Potassium 3.5, Chloride 96 L, Carbon Dioxide 27.9, Anion Gap 12, BUN 21 H, Creatinine 0.54 L, Estim Creat Clear Calc 62.02, Est GFR (MDRD) Non-Af 102, BUN/Creatinine Ratio 39.7 H, Glucose 43 L*, Lactic Acid 1.8, Calcium 10.2, Total Bilirubin 0.35, AST 33 H, ALT 27, Alkaline Phosphatase 230 H, Troponin T High Sens 7, Total Protein 6.8, Albumin 3.5, Globulin 3.3, Albumin/Globulin Ratio 1.1 06/09/25 02:39: Urine Color Yellow, Urine Clarity Clear, Urine pH 7.0, Ur Specific [place] 1.005, Urine Protein Negative, Urine Glucose (UA) 100 H, Urine Ketones Negative, Urine Occult Blood Negative, Urine Nitrite Negative, Urine Bilirubin Negative, Urine Urobilinogen Normal, Ur Leukocyte Esterase Negative, Urine RBC 0 SEEN, Urine WBC 0 SEEN, Ur Squamous Epith Cells 0-5 SEEN, Urine Bacteria 0 SEEN, Urine Mucus 0 SEEN 11/26/24 04:45: Glucose 111 H, Troponin T Hi Sens 2 Hr 6, TSH 0.742, Free T4 1.30, Free T3 pg/dL 1.8 L Microbiology: Microbiology 11/26/24 02:30 Mucosa - Nose SARS-CoV-2, Influenza & RSV (PCR) - Final ABG: ABG 11/26/24 02:36 Specimen Type ZONIA Sample Site Not entered VBG pH 7.49 H VBG pO2 65 H VBG HCO3 34 H VBG Total CO2 35 H VBG O2 Sat (Calc) 94 H VBG Base Excess 10 H POC Mix VBG pCO2 Pt Tmp 43.8 O2 Delivery Device Room Air Radiography Diagnostic Testing: Radiology Impression Brain CT 11/26/24 02:15 IMPRESSION: Scattered ill-defined hypodense foci are noted of the little-white matter junction of the supratentorial and infratentorial brain parenchyma with associated mild multifocal edema. Associated metastatic brain disease is not excluded. No associated ventricular compression, midline shift or brain herniation. [facility] Chest X-Ray 11/26/24 03:35 IMPRESSION: No radiographic evidence of an acute bone abnormality. Reading Location: [facility] Abdomen/Pelvis CT 11/26/24 04:37 IMPRESSION: Interval appearance of subsegmental atelectasis/consolidation in the right lower lobe. Associated pneumonia is not excluded. Increased hepatomegaly. Interval appearance of multiple heterogeneous metastatic necrotic liver lesions with the largest in the right hepatic lobe measuring 7.8 x 5.3 cm. Simple cyst is noted in the lower pole of the left kidney measuring 3.5 cm. Cholelithiasis without acute cholecystitis. Alarcon catheter balloon is seen in the bladder. Uncomplicated colonic diverticulosis. Moderate amount of fecal residue in the large bowels. Increased hepatomegaly. Reading Location: [facility] Chest CT 11/26/24 04:37 IMPRESSION: Coronary artery calcification (CAC) is is present Subsegmental atelectasis of the right lower lobe. Associated endobronchial lesion is not excluded. Mild emphysema. Mild osteopenia. Moderate diffuse spondylosis. Increased dorsal kyphosis. Moderate coronary artery calcifications. Periphery calcified left thyroid lobe nodule is noted measuring 1.3 cm. No tracheal narrowing or deviation is seen. Subacute healing fractures in the axillary portions of the right 4th, 5th, 6 and 7th ribs. [facility] D[facility] Instructions DC O2, CPAP, BIPAP Needs Home O2 Discharge instructions: No Meaningful Use Info Meaningful Use Meaningful Use Diagnoses (Choose all that apply): None applicable Ischemic Stroke Statin Dosing Therapy Reference: STATIN DOSE THERAPY REFERENCE: * Patients > 75 years receive moderate or high dose statin therapy. * Patients 75 years or YOUNGER should receive HIGH intensity statin dose unless contraindicated. You will be required to document reason for non-treatment if statin daily dose does not meet guidelines. HIGH DOSE STATIN THERAPY DAILY Atorvastatin > than or = to 40 mg Rosuvastatin > than or = to 20 mg Amlodipine + Atorvastatin > than or = to 2.5/40 mg Ezetimibe + Simvastatin 10/80 mg Simvastatin 80mg Discharge Plan Admission Admit Date/Time: 11/26/24 08:00 Attending Provider: Alcon Pulido Primary Care Provider: Care Physician,Mae Primary Discharge Orders/Prescriptions Prescriptions: No Action (DME) pen needle, diabetic 31 gauge x 1/3 needle See Rx Instructions .Route Qty: 100 0RF Rx Instructions: As directed dexamethasone 6 mg tablet 6 mg PO Q12H Patient Comments: [NO ORIGINAL SIG] levetiracetam 500 mg tablet 500 mg PO Q12H Patient Comments: [NO ORIGINAL SIG] ondansetron HCl 8 mg tablet 8 mg PO Q8H Patient Comments: [NO ORIGINAL SIG] olanzapine 5 mg tablet,disintegrating 5 mg PO Q8H PRN prochlorperazine maleate 10 mg tablet 10 mg PO Q6H PRN Patient Comments: [NO ORIGINAL SIG] pantoprazole 40 mg tablet,delayed release (DR/EC) 40 mg PO DAILY sulfamethoxazole-trimethoprim 800-160 mg tablet 1 tab PO MOWEFR Novolin 70-30 FlexPen U-100 100 unit/mL (70-30) insulin pen 70 unit subcut DAILY Novolin 70-30 FlexPen U-100 100 unit/mL (70-30) insulin pen 50 unit subcut QPM Referrals / Follow Up: Care Physician,No Primary [Primary Care Provider] - Disposition Disposition (needs filled in before D/C Order can be placed): Against Medical Advice Charges/Coding Visit Charges Inpatient E&M: [id number] Disch Hosp >30min
== END 2024-11-26 15:06 | disposition left against medical advice (07) | DRG 193 ==
LOC: ED 07:11 → MS3 08:33
PROVIDERS: Emergency Provider Emergency Medicine
DX: J18.9 Pneumonia, unspecified organism (principal); G93.6 Cerebral edema; C78.7 Secondary malignant neoplasm of liver and intrahepatic bile duct; C79.31 Secondary malignant neoplasm of brain; C34.90 Malignant neoplasm of unspecified part of unspecified bronchus or lung; T68.XXXA Hypothermia, initial encounter; J44.9 Chronic obstructive pulmonary disease, unspecified; E11.649 Type 2 diabetes mellitus with hypoglycemia without coma; I10 Essential (primary) hypertension; Z79.4 Long term (current) use of insulin; F17.210 Nicotine dependence, cigarettes, uncomplicated; Z66 Do not resuscitate
CPT/HCPCS: 51702; 70450; 71045; 71250; 74176; 80053; 81001; 82803; 82947; 83605; 84439; 84443; 84481; 84484; 85025; 85610; 85730; 87040; 87086; 87631; 93005; 94640; 99285; A4216